=== PATIENT | female | born 1955 | race Caucasian/White ===

== ENCOUNTER 2020-03-24 15:33 | Outpatient (REF) | payer MEDICARE, MEDICAID, SELFPAY ==
[2020-03-24 16:38] LABS: MANUAL DIFF FLAG NO
[2020-03-24 16:41] LABS: Basophils Percent Auto 0.4 % (0-2); Eosinophils Absolute Auto 0.3 X10*3/uL (0.0-0.4); Hematocrit 31.8 % (37-47); Hemoglobin 10.8 g/dl (12.0-16.0); Imm Gran Abs Auto 0.09 X10*3/uL (0.00-0.03); Imm Gran Pct Auto 1.2 % (0.0-0.4); Lymphocytes Absolute Auto 2.4 X10*3/uL (1.2-4.9); Lymphocytes Percent Auto 31.5 % (20-40); Mean Corpuscular Volume 85.5 fL (80-98); Mean Platelet Volume 8.5 fL (9.4-12.3); Monocytes Absolute Auto 0.7 X10*3/uL (0.1-1.2); Monocytes Percent Auto 8.6 % (2-11); Neutrophils Absolute Auto 4.1 X10*3/uL (2.0-8.3); Neutrophils Percent Auto 54.3 % (45-73); Platelet Count 241 X10*3/uL (160-400); Red Blood Count 3.72 X10*6/uL (4.20-5.50); Red Cell Distribution Width 13.2 % (11.0-16.0); White Blood Count 7.6 X10*3/uL (4.8-10.8)
[2020-03-24 17:08] LABS: Alanine Aminotransferase 10 U/L (0-31); Albumin Level 4.1 g/dL (3.5-5.0); Alkaline Phosphatase 83 U/L (39-117); Anion Gap 11 (12-20); Aspartate Amino Transferase 10 U/L (5-31); Bilirubin Total 0.3 mg/dL (0.0-1.0); Blood Urea Nitrogen 14 mg/dL (9-16); Calcium 8.6 mg/dL (8.4-10.2); Carbon Dioxide 24 mmol/L (22-29); Chloride 100 mmol/L (96-108); Estimated Glomerular Filt Rate > 60; Glucose Random 78 mg/dL (60-115); Potassium 4.7 mmol/l (3.3-5.1); Sodium 130 mmol/L (135-145); Total Protein 6.5 g/dL (6.5-8.0)
[2020-03-24 17:33] LABS: Erythrocyte Sedimentation Rate 25 MM/HR (0-20)
== END 2020-03-24 15:34 | disposition home or self-care (01) ==
LOC: HO.LAB 15:33
PROVIDERS: Absent Provider Physician Assistant
DX: I12.9 Hypertensive chronic kidney disease with stage 1 through stage 4 chronic kidney disease, or unspecified chronic kidney disease (principal); N18.9 Chronic kidney disease, unspecified
CPT/HCPCS: 36415; 80053; 85025; 85652

== ENCOUNTER → 2020-06-05 11:28 | Outpatient (BNVA) | payer MEDICARE, MEDICAID, SELFPAY | PROVIDERS: Visit Provider Anesthesiology | DX: M17.0 Bilateral primary osteoarthritis of knee (principal); M47.816 Spondylosis without myelopathy or radiculopathy, lumbar region; M51.36 Other intervertebral disc degeneration, lumbar region; G89.4 Chronic pain syndrome | CPT/HCPCS: 99212 ==

== ENCOUNTER 2020-07-11 15:52 | Outpatient (REF) | payer MEDICARE, MEDICAID, SELFPAY ==
[2020-07-11 17:06] LABS: MANUAL DIFF FLAG NO
[2020-07-11 17:09] LABS: Basophils Percent Auto 0.2 % (0-2); Eosinophils Absolute Auto 0.2 X10*3/uL (0.0-0.4); Eosinophils Percent Auto 2.6 % (0-4); Hematocrit 36.4 % (37-47); Hemoglobin 12.2 g/dl (12.0-16.0); Imm Gran Abs Auto 0.15 X10*3/uL (0.00-0.03); Imm Gran Pct Auto 1.8 % (0.0-0.4); Lymphocytes Percent Auto 23.5 % (20-40); Mean Corpuscular HGB Conc 33.5 g/dl (31.0-35.0); Mean Corpuscular Hemoglobin 28.8 pg (27.0-33.0); Mean Corpuscular Volume 86.1 fL (80-98); Mean Platelet Volume 8.9 fL (9.4-12.3); Monocytes Absolute Auto 0.6 X10*3/uL (0.1-1.2); Neutrophils Absolute Auto 5.5 X10*3/uL (2.0-8.3); Neutrophils Percent Auto 64.9 % (45-73); Platelet Count 242 X10*3/uL (160-400); Red Blood Count 4.23 X10*6/uL (4.20-5.50); Red Cell Distribution Width 13.2 % (11.0-16.0); White Blood Count 8.4 X10*3/uL (4.8-10.8)
[2020-07-11 17:31] LABS: Alanine Aminotransferase 13 U/L (0-31); Albumin Level 4.3 g/dL (3.5-5.0); Alkaline Phosphatase 102 U/L (39-117); Aspartate Amino Transferase 15 U/L (5-31); Bilirubin Direct < 0.2 mg/dL (0.0-0.5); Bilirubin Total 0.3 mg/dL (0.0-1.0); Blood Urea Nitrogen 16 mg/dL (9-16); Estimated Glomerular Filt Rate 58
[2020-07-12 18:11] LABS: IgA 151 mg/dL (70-320); IgG 811 mg/dL (600-1540); IgM 286 mg/dL (50-300)
== END 2020-07-11 15:53 | disposition home or self-care (01) ==
LOC: HO.LAB 15:52
PROVIDERS: Visit Provider Physician Assistant
DX: G35 Multiple sclerosis (principal)
CPT/HCPCS: 36415; 80076; 82565; 82784; 84520; 85025

== ENCOUNTER 2020-08-05 10:56 | Outpatient (REF) | payer MEDICARE, MEDICAID, SELFPAY ==
[2020-08-05 11:31] LABS: Glucose Urine UA NEG (NEG); Leukocyte Esterase Urine NEG (NEG); Nitrite Urine NEG (NEG); PH 5.5 (5.0-8.0); Specific Gravity - Urine >= 1.030 (1.005-1.025); Urine Blood TRACE (NEG); Urine Ketones NEG (NEG); Urine Protein 1+ MG/DL (NEG-TRACE)
[2020-08-05 11:33] LABS: Appearance Urine HAZY; Color Urine YELLOW
[2020-08-05 11:42] LABS: Bacteria Urine 1+ /LPF; Squamous Epithelial Cell Urine 1+ /LPF; WBC Urine 0-2 /HPF (0-4)
[2020-08-05 11:55] LABS: Alanine Aminotransferase 22 U/L (0-31); Albumin Level 4.3 g/dL (3.5-5.0); Alkaline Phosphatase 103 U/L (39-117); Anion Gap 15 (12-20); Aspartate Amino Transferase 26 U/L (5-31); Bilirubin Total 0.4 mg/dL (0.0-1.0); Blood Urea Nitrogen 18 mg/dL (9-16); Calcium 8.7 mg/dL (8.4-10.2); Carbon Dioxide 19 mmol/L (22-29); Chloride 108 mmol/L (96-108); Estimated Glomerular Filt Rate 56; Glucose Random 119 mg/dL (60-115); Potassium 4.3 mmol/L (3.3-5.1); Sodium 138 mmol/L (135-145)
== END 2020-08-05 10:57 | disposition home or self-care (01) ==
LOC: HO.LAB 10:56
PROVIDERS: Visit Provider Physician Assistant
DX: G35 Multiple sclerosis (principal); Z86.59 Personal history of other mental and behavioral disorders
CPT/HCPCS: 36415; 80053; 81001

== ENCOUNTER → 2020-08-17 14:20 | Outpatient (BNVA) | payer MEDICARE, MEDICAID, SELFPAY | PROVIDERS: PCP Internal Medicine; Visit Provider Internal Medicine | DX: Z01.810 Encounter for preprocedural cardiovascular examination (principal); I47.1 Supraventricular tachycardia; I10 Essential (primary) hypertension | CPT/HCPCS: 93005; 99202 ==

== ENCOUNTER → 2020-08-31 13:57 | Outpatient (REF) | payer MEDICARE, MEDICAID, SELFPAY ==
--- NOTE | 2020-08-31 14:01 | CA_ITS ---
Transthoracic Echocardiogram Patient (Last, First, Middle): Sarah Dash, Gender: Female Date of : 1955 Age: 64 Procedure Date: 08/31/2020 Procedure Type: Transthoracic Echocardiogram Location: OP Height: 165.1 cm Weight: 88.45 kg BSA: 1.96 m2 Heart Rate: bpm BP: 148 / 90 mmHg [employer] Supervisor: TOM Verduzco MD: Isrrael Álvarez MD [employer]: Joel Soriano MD Symptoms: I25.10 - Atherosclerotic heart disease of [place] coronary artery without angina pectoris Study Quality: Technically Difficult/contrast ECG Rhythm: Sinus Conclusions: - 1. Normal LV systolic function with impaired relaxation filling pattern 2. Cardiac valves not well visualized but Doppler within normal limits 3. Normal RV systolic pressure 4. No pericardial effusion Findings Left Ventricle Normal left ventricular size and systolic function. There is mildly increased left ventricular wall thickness. The visually estimated ejection fraction is between 60-65%. Spectral Doppler is indicative of an impaired relaxation filling pattern. E/E prime ratio is between 8 and 15 consistent with indeterminate filling pressures. Right Ventricle The right ventricle was not well visualized. Atria Both atria are normal in size. Interatrial shunt cannot be excluded. Aortic Valve The aortic valve was not well visualized. There is no aortic valve stenosis. There is no aortic valve regurgitation. Mitral Valve The mitral valve was not well visualized. There is trace mitral valve regurgitation. There is no mitral valve stenosis. Pulmonic Valve The pulmonic valve was not well visualized. Tricuspid Valve The tricuspid valve was not well visualized. There is trace tricuspid valve regurgitation. The right ventricular systolic pressure is normal. The right ventricular systolic pressure is 11 mmHg. There is no evidence of pulmonary hypertension. Great Vessels All visible segments of the aorta are normal in size. The pulmonary artery was not well visualized. Venous The inferior vena cava is normal in size and collapses greater than 50% with inspiration. Pericardium/Pleural There is no evidence of pericardial effusion. Prior Study Comparison No significant change compared to prior study dated: 12/31/2017. Measurements 2D Linear Measurements IVSd: 1.21 0.6-0.9/0.6-1.0 cm LVIDd: 3.71 3.9-5.3/4.2-5.9 cm LVIDd Index: 1.89 2.4-3.2/2.2-3.1 cm/m2 LVIDs: 2.48 2.0-3.6 cm LVPWd: 1.20 0.7-1.1 cm Ao Root: 3.00 2.1-3.5 cm LA Diam: 3.30 2.7-3.8/3.0-4.0 cm LAIDs Index: 1.68 1.5-2.3 cm/m2 LV Mass: 185.28 67-162/88-224 g LV Mass Index: 94.53 43-95/49-115 g/m2 LVOT Diam: 1.90 3.0+(-)1.3 cm Mitral Valve MV Pk E: 0.82 MV PK A: 0.79 MV Decel Time: 275.00 E/A: 1.00 E'Lateral: 9.57 E'Medial: 7.35 E/E' Med: 11.20 E/E' Lat: 8.60 PHT: 80.00 MVA PHT: 2.75 Decel Butler: 2.98 Aortic Valve AoV Pk Sam: 1.46 AoV Mn Sam: 0.99 AoV VTI: 0.30 AoV Pk Grad: 9.00 Aov Mn Grad: 4.00 PERCY Cont.VTI: 2.11 LVOT LVOT Pk Sam: 0.95 LVOT Mn Sam: 0.68 LVOT VTI: 0.22 LVOT Pk Grad: 4.00 LVOT Mn Grad: 2.00 LVOT Diam: 1.90 LVOT Area: 2.84 Diastolic Function MV Pk E: 0.82 MV Pk A: 0.79 E/A: 1.00 E'Medial: 7.35 E/E' Med: 11.20 E' Laterial: 9.57 E/E' Lat: 8.60 Tricuspid Valve TR Pk Sam: 1.45 TR Pk Grad: 8.00 RA Press: 3.00 RVSP: 11.00 Great Vessels Aorta Ao Root-2D: 3.00 2.0-3.7 cm Ao Asc: 3.10 2.1-3.4 cm Ao Arch: 3.10 Updated in Other Vendor System with Status of Final Joel Soriano MD electronically signed on 09/01/2020 12:47:30 PM with status of Final
--- NOTE | 2020-09-05 09:02 | ECG_ITS ---
Hook-up date: 2020-09-05 16:13:00 Duration: 47:59:00 Test Indications: SVT Medications: [id number] QRS complexes 588 Ventricular ectopics which represent <1 % of total QRS comp. 22 Supraventricular ectopics which represent <1 % of total QRS comp. * Paced QRS complexs which represent % of total QRS comp. VENTRICULAR ECTOPY 586 Isolated 0 Bigeminal Cycles 1 Couplets 0 Runs 0 Beats in Runs * Beats LONGEST at * BPM at :: -- * Beats FASTEST at * BPM at :: -- SUPRAVENTRICULAR ECTOPY 9 Isolated 2 Couplets 1 Runs 9 Beats in Runs 9 Beats LONGEST at 85 BPM at 03:12:44 2020-09-07 9 Beats FASTEST at 85 BPM at 03:12:44 2020-09-07 HEART RATES 64 MIN at 00:56:34 2020-09-06 71 AVG 120 MAX at 15:13:12 2020-09-07 LONGEST RR 1.1120 secs at 03:12:50 2020-09-07 S-T LEVELS Channel 1 - 128 mm at 16:13:00 2020-09-05 - 128 mm at 16:13:00 2020-09-05 Channel 2 - 128 mm at 16:13:00 2020-09-05 - 128 mm at 16:13:00 2020-09-05 Channel 3 - 128 mm at 03:53:21 -- - 128 mm at 03:53:21 Underlying rhythm is sinus; Average ventricular rate 71/wilfredo; range 64-120/min; Occasional PVCs; isolated; Symptoms of chest tightness, shortness of breath, lightheadedness, head pounding in patient diary associated with sinus rhythm. Referred By: Gino Jackson Overread By: GINO JACKSON
== END ==
LOC: HO.CARD 13:57
PROVIDERS: Visit Provider Internal Medicine
DX: I25.10 Atherosclerotic heart disease of native coronary artery without angina pectoris (principal); I47.1 Supraventricular tachycardia
CPT/HCPCS: 93226; 93306; Q9957

== ENCOUNTER → 2020-09-05 16:06 | Outpatient (BNVA) | payer MEDICARE, MEDICAID, SELFPAY | PROVIDERS: PCP Internal Medicine; Visit Provider Internal Medicine ==

== ENCOUNTER → 2020-09-19 15:46 | Outpatient (BNVA) | payer MEDICARE, MEDICAID, SELFPAY | PROVIDERS: PCP Internal Medicine; Visit Provider Internal Medicine | DX: Z01.810 Encounter for preprocedural cardiovascular examination (principal); I47.1 Supraventricular tachycardia; I10 Essential (primary) hypertension; R07.2 Precordial pain | CPT/HCPCS: 99212 ==

== ENCOUNTER → 2020-09-22 08:07 | Outpatient (REF) | payer MEDICARE, MEDICAID, SELFPAY ==
--- NOTE | ~2020-09-22 | NM_ITS ---
Lexiscan Myocardial perfusion study Indication: Chest tightness, assess for coronary disease and ischemia Technique: The patient was brought in for a Lexiscan perfusion study on 09/22/2020 and was injected 0.4 mg of Lexiscan intravenously. Within a minute of this injection 30 mCi of sestamibi was given intravenously. Images were obtained using the SPECT gamma camera interlaced with the gating device. Images were obtained in supine position. Resting perfusion study was performed on 09/25/2020. Patient was administered 30 mCi of sestamibi intravenously at rest. Images were then obtained in supine position. Total DLP 169mGy-cm. Images were processed with the software and compared side to side in short axis, horizontal long axis and vertical long axis views. Findings: Raw acquisition was reviewed. Probable motion artifact during resting. The stress perfusion study showed diminished tracer uptake along the basal part of inferolateral wall. With CT attenuation correction, there is improved uptake suggestive of diaphragmatic attenuation artifact. The gated study shows normal LV systolic function with calculated LVEF of > 70%. LV cavity is normal in size. The gated study shows normal wall thickening and contraction of segments. Resting study shows diminished tracer uptake along the lateral wall in the midportion that is seen in both uncorrected as well as corrected acquisitions and possibly artifactual. Gating at rest reveals normal wall motion with ejection fraction at 70%. The findings are consistent with no definite reversible defects. Lateral defect that is worse in resting is likely artifactual. NM/NM jose l perf SPECT rest & str Impression: 1. Myocardial perfusion imaging study shows no definitive ischemia or infarction noted. Lateral perfusion defect seems artifactual and more prominent during rest. 2. Gated LVEF is > 70% during stress; 70% during rest. 3. Transient ischemic dilatation not present. EKG component of the test reported separately.
--- NOTE | 2020-09-22 08:12 | CA_ITS ---
Acquisition Time: 2020-09-22 08:20:40 Total Exercise Time: 00:02:00 Test Indications: Lightheadedness Medications: VALSARTAN/HCTZ CARVEDILOL SERTRALINE OXYCODONE OMEPRAZOLE LORAZAPAM Protocol: LEXISCAN Max HR: 105 BPM 68% of Pred: 153 BPM Max BP: 130/072 mmHG Max Work Load: 1.0 METS Pharmacological stress test using Lexiscan while sitting. Pt tolerated well, denies any anginal sx. SX of H/A reversed with Aminophyline 75 mg IV. EKG without arrhythmias, non-diagnostic for ischemia. Nuclear images to follow. Normotensive response to test. Test reviewed with Dr. Beyer. Referred By: Isrreal Álvarez Overread By: Dinah Waddell NP
== END ==
LOC: HO.CARD 08:07
PROVIDERS: Visit Provider Internal Medicine
DX: R07.2 Precordial pain (principal)
CPT/HCPCS: 78452; 93017; A9500; J0280; J2785

== ENCOUNTER → 2020-09-29 09:57 | Outpatient (BNVA) | payer MEDICARE, MEDICAID, SELFPAY | PROVIDERS: PCP Internal Medicine; Visit Provider Nurse Practitioner Family | DX: Z01.810 Encounter for preprocedural cardiovascular examination (principal); R07.2 Precordial pain; I10 Essential (primary) hypertension; I47.1 Supraventricular tachycardia; G35 Multiple sclerosis; Z79.899 Other long term (current) drug therapy | CPT/HCPCS: Q3014 ==

== ENCOUNTER 2020-10-13 12:31 | Day surgery (SDC) | payer MEDICARE, MEDICAID, SELFPAY ==
[2020-08-09 11:07] VITALS: BMI 33.3
--- NOTE | 2020-08-15 13:21 | P.CONAN_ITS ---
HPI - Anesthesia Eval Consult details Narrative: 64yo F for Right Genicular Nerve Block Diagnostic Pt cx'd 08/18/20 d/t atach vs svt (seen by cardiology 08/17/20). Will be rescheduled after follow up with cardiology. [facility] Active Problems Active Problems: All Active Problems (Updated 08/11/20 @ 09:51 by Drew Marc MD) Paroxysmal SVT (supraventricular tachycardia) (Acute) Multiple sclerosis (Acute) Depression (Acute) Pain syndrome, chronic (Acute) Disc degeneration, lumbar (Acute) Spondylosis of lumbar region without myelopathy or radiculopathy (Acute) Osteoarthritis of knees, bilateral (Acute) Past Medical History Medical History (Updated 08/17/20 @ 14:38 by Isrrael Álvarez MD) Anxiety Arthritis Depression Disc degeneration, lumbar GERD (gastroesophageal reflux disease) History of confusion History of dysphagia History of kidney problems Hypertension Memory difficulties Multiple sclerosis Osteoarthritis of knees, bilateral Pain syndrome, chronic Paroxysmal SVT (supraventricular tachycardia) Spondylosis of lumbar region without myelopathy or radiculopathy SVT (supraventricular tachycardia) Urgency of micturition Family History Family History Mother No problems noted. Father No problems noted. Surgical History Surgical History Deficient knowledge of leg surgery History of appendectomy History of left knee surgery History of myomectomy History of rotator cuff surgery History of surgery on left wrist Hx of hysterectomy Social History Social History Alcohol intake: current Alcohol intake frequency: holidays/special occasions only Smoking Status: Never smoker Second Hand Smoke Exposure: No Meds Allergies Allergy/AdvReac Type Severity Reaction Status Date / Time cobalt [COBALT] Allergy Unknown RASH Verified 08/17/20 14:37 hydrocodone [Vicodin] Allergy Unknown Nausea and Verified 08/17/20 14:37 Vomiting nickel [NICKEL] Allergy Unknown RASH Verified 08/17/20 14:37 ondansetron [Zofran] Allergy Unknown Hives Verified 08/17/20 14:37 prochlorperazine [Compazine] Allergy Unknown Dystonic Verified 08/17/20 14:37 Reaction morphine AdvReac Nausea and Verified 08/17/20 14:37 Vomiting Home Medications Medication Instructions Recorded Confirmed Last Taken Type cyclobenzaprine 10 mg tablet 10 mg PO TID 06/05/20 08/17/20 Unknown History ergocalciferol (vitamin D2) 1,250 1,250 mcg PO QWEEK 06/05/20 08/17/20 Unknown History mcg (50,000 unit) capsule ibuprofen 200 mg tablet 400 mg PO TID PRN 06/05/20 08/17/20 Unknown History lorazepam 0.5 mg tablet 0.5 mg PO 06/05/20 08/17/20 Unknown History omeprazole 20 mg capsule,delayed 20 mg PO BID 06/05/20 08/17/20 Unknown History release oxcarbazepine 300 mg tablet 300 mg PO BID 06/05/20 08/17/20 Unknown History oxybutynin chloride 10 mg 10 mg PO DAILY 06/05/20 08/17/20 Unknown History tablet,extended release 24 hr sertraline 50 mg tablet 50 mg PO BID 06/05/20 08/17/20 Unknown History valsartan 160 1 tab PO DAILY 06/05/20 08/17/20 Unknown History mg-hydrochlorothiazide 25 mg tablet zolpidem 10 mg tablet 10 mg PO BEDTIME PRN 06/05/20 08/17/20 Unknown History quetiapine 50 mg tablet 50 mg PO BEDTIME 08/08/20 08/17/20 Unknown History carvedilol 12.5 mg tablet 25 mg PO QAM tab 08/17/20 08/17/20 Unknown History Exam Exam Date and Time: August 15, 2020 1321 Height,Weight and Vital Signs: Height 5 ft 4 in Weight 87.997 kg Narrative Narrative: EKG 06/2019 NSR 1st degree AV block No abn Q wave Echo 2018 LVEF 65-70% Holter 2018 Basic rhythm NSR Freq SB, lowest HR of 45bmp No long pauses Rare ectopies Pt reported symptoms correlated with baseline rhythm Assessment and Plan Assessment Anesthesia Assessment: Chart Reviewed
[2020-10-06 12:33] VITALS: BMI 39.3
--- NOTE | ~2020-10-13 | FL_ITS ---
EXAMINATION: XR FLUOROSCOPY WITH IMAGES CLINICAL INFORMATION: Geniculate nerve block COMPARISON: None. TECHNIQUE: Fluoroscopy performed by Dr. Favian Sullivan. Fluoroscopy time: 0.1 minutes DAP: 0.4 mGycm2 Images: 2 FINDINGS: AP and lateral fluoroscopic images of the right knee demonstrate needle placement for geniculate nerve block. There is arthritis at the medial femoral tibial and patellofemoral joints. FL/FL guidance in OR IMPRESSION: Fluoroscopic guidance for right knee geniculate nerve block.
--- NOTE | 2020-10-13 13:18 | PC.NURSE ---
order for both knees for today but dr Sullivan only doing the right side.
[2020-10-13 13:29] VITALS: BP 125/80; PULSE 67; RESP 18; TEMP 36.5; O2SAT 95
[2020-10-13] MEDS: Lactated Ringers 1,000 ML 50 ML IV (13:32)
--- NOTE | 2020-10-13 13:38 | MHC.SHP ---
Pre-Procedural Eval Section A The patient is an INPATIENT: No Changes since office visit: Yes Patient answered all questions The History & Physical has been completed within 30 days and I have reviewed it.: No Section B Chief Complaint: osteoarthritis of the knee Details of Present Illness: Knee osteoarthritis Relevant Family History (Specify if Yes): No Relevant Social History: None Present Medications: see Short Stay Collaborative assessment Medical History: Significant History History of Previous Operations: No relevant previous surgery Allergies: Allergies Allergy/AdvReac Type Severity Reaction Status Date / Time prochlorperazine [Compazine] Allergy Severe Dystonic Verified 10/13/20 13:22 Reaction cobalt [COBALT] Allergy Intermediate RASH Verified 10/13/20 13:22 hydrocodone [Vicodin] Allergy Intermediate Nausea and Verified 10/13/20 13:22 Vomiting nickel [NICKEL] Allergy Intermediate RASH Verified 10/13/20 13:22 ondansetron [Zofran] Allergy Unknown Hives Verified 10/13/20 13:22 morphine AdvReac Nausea and Verified 10/13/20 13:22 Vomiting Review of Systems Sugical H&P ROS: Negative: Constitution, Cardiovascular, Respiratory, Neurological, Psychiatric, Hem-Onc, Allergic/Immunologic, Gastrointestinal, Genitourinary, Musculoskeletal, Integumentary, Endocrine and Eyes/Ears/Nose/Throat Exam Surgical H&P Exam: Normal: HEENT, Normal: Heart, Normal: Lungs, Normal: Extremities, Normal: Abdomen, Normal: Skin and Normal: Neurological Plan Diagnosis/Plan: Unchanged I have reviewed the history and physical and performed a pertinent physical examination on my patient. No changes have occurred unless specified.
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
--- NOTE | 2020-10-13 14:19 | PM.OP ---
Brief Operative Note Date of Service: 10/13/20 Pre-op diagnosis: Right knee osteoarthritis Post-op diagnosis: same Implants: Diagnostic genicular nerve block right Surgeon: Favian Sullivan MD Anesthesia: MAC Estimated blood loss (mL): 1 Pathology: none sent Condition: stable Disposition: PACU
--- NOTE | 2020-10-13 14:20 | W.PM.OPN ---
Operative Note Operative Note Date of Service: 10/13/20
[2020-10-13 14:21] VITALS: BP 94/58; PULSE 64; RESP 16; TEMP 36.1; O2SAT 97
[2020-10-13 14:35] VITALS: BP 112/70; PULSE 68; RESP 16; TEMP 36.1; O2SAT 99
--- NOTE | 2020-10-17 07:02 | P.OP_ITS ---
Operative Note Operative Note Date of Service: 10/13/20 Narrative: Patient came to the operating room after informed consent was obtained. She was positioned supine on the operating table [employer] [employer] monitors were applied , patient was sedated. Time-out procedure was performed delineating correct site and side of the injections, patient's name and date of , allergies, need for antibiotics, risk of fire. Patient's righ knees as well as anterior surface of lower thigh as well as anterior surface of upper obrien were prepped with ChloraPrep and draped with sterile towels. Sterilely draped C-arm was brought over the operating field and sq picture of the patient's knees was obtained on the screen The point of interest were delineated as connection of metaphysis and diaphysis medial and lateral of the femoral bone, as well as connections of the diaphysis and metaphysis bilaterally on the medial border of the tibial bone. The point of interest projection to the skin were injected with small amount of Lidocaine and after that 22 g. 3&1/2 spinal needles were inserted through the skin . The needles were driven to were the point of interest on anterior posterior and lateral views. When on lateral views the needles were positioned with the tips in the projection of mid shaft of the bones the 1.5 to 2 cc of Marcaine was injected into each position. Upon completion of the injections needles were removed sterile Band-Aids were applied. Patient tolerated procedure well he was awakened and transferred to PACU for recovery he recovered uneventfully and went home without immediate complications.
== END 2020-10-13 15:33 | disposition home or self-care (01) ==
PROVIDERS: Visit Provider Anesthesiology
PROC: (CPT 64454; principal; 2020-10-13 13:20)
DX: M17.11 Unilateral primary osteoarthritis, right knee (principal); G35 Multiple sclerosis; G89.4 Chronic pain syndrome; I10 Essential (primary) hypertension; Z79.899 Other long term (current) drug therapy
CPT/HCPCS: 64454; J3300

== ENCOUNTER → 2020-10-19 11:55 | Outpatient (BNVA) | payer MEDICARE, MEDICAID, SELFPAY | PROVIDERS: Visit Provider Anesthesiology | DX: M17.0 Bilateral primary osteoarthritis of knee (principal); M47.816 Spondylosis without myelopathy or radiculopathy, lumbar region; M51.36 Other intervertebral disc degeneration, lumbar region; G89.4 Chronic pain syndrome | CPT/HCPCS: Q3014 ==

== ENCOUNTER 2020-10-27 07:48 | Day surgery (SDC) | payer MEDICARE, MEDICAID, SELFPAY ==
--- NOTE | 2020-10-25 13:06 | P.CONAN_ITS ---
Documented by User: Swetha Rodriguez 10/25/20 13:09 HPI - Anesthesia Eval Consult details Narrative: 65yo F for Left Genicular Nerve Block Diagnostic Cardiac cleared - SVT controlled with rx adjustments s/p Right side 10/13/20 with MAC PMFSH Active Problems Active Problems: All Active Problems (Updated 09/19/20 @ 16:16 by Isrrael Álvarez MD) Precordial chest pain (Acute) Essential hypertension (Acute) Preoperative cardiovascular examination (Acute) SVT (supraventricular tachycardia) (Acute) Paroxysmal SVT (supraventricular tachycardia) (Acute) Multiple sclerosis (Acute) Depression (Acute) Pain syndrome, chronic (Acute) Disc degeneration, lumbar (Acute) Spondylosis of lumbar region without myelopathy or radiculopathy (Acute) Osteoarthritis of knees, bilateral (Acute) Past Medical History Medical History Anxiety Arthritis Depression Disc degeneration, lumbar Essential hypertension GERD (gastroesophageal reflux disease) History of confusion History of dysphagia History of kidney problems Hypertension Memory difficulties Multiple sclerosis Osteoarthritis of knees, bilateral Pain syndrome, chronic Paroxysmal SVT (supraventricular tachycardia) Spondylosis of lumbar region without myelopathy or radiculopathy SVT (supraventricular tachycardia) Urgency of micturition Family History Family History Mother Diabetes Kidney failure Father AAA (abdominal aortic aneurysm, ruptured) Surgical History Surgical History Deficient knowledge of leg surgery History of appendectomy History of left knee surgery History of myomectomy History of rotator cuff surgery History of surgery on left wrist Hx of hysterectomy Social History Social History Alcohol intake: current Alcohol intake frequency: holidays/special occasions only Smoking Status: Never smoker Second Hand Smoke Exposure: No Use of substances other than those prescribed or required for medical reasons: No Are you DNR?: No Advance Directives: No Advance Directives Information Provided: Yes Meds Allergies Allergy/AdvReac Type Severity Reaction Status Date / Time prochlorperazine [Compazine] Allergy Severe Dystonic Verified 10/27/20 07:57 Reaction cobalt [COBALT] Allergy Intermediate RASH Verified 10/27/20 07:57 hydrocodone [Vicodin] Allergy Intermediate Nausea and Verified 10/27/20 07:57 Vomiting nickel [NICKEL] Allergy Intermediate RASH Verified 10/27/20 07:57 ondansetron [Zofran] Allergy Unknown Hives Verified 10/27/20 07:57 morphine AdvReac Nausea and Verified 10/27/20 07:57 Vomiting Home Medications Medication Instructions Recorded Confirmed Last Taken Type ergocalciferol (vitamin D2) 1,250 1,250 mcg PO QWEEK 06/05/20 10/01/20 Unknown History mcg (50,000 unit) capsule ibuprofen 200 mg tablet 400 mg PO TID PRN 06/05/20 10/01/20 Unknown History lorazepam 0.5 mg tablet 0.5 mg PO 06/05/20 10/01/20 10/27/20 05:30 History omeprazole 20 mg capsule,delayed 20 mg PO BID 06/05/20 10/01/20 10/27/20 05:30 History release oxcarbazepine 300 mg tablet 300 mg PO BID 06/05/20 10/01/20 10/27/20 05:30 History oxybutynin chloride 10 mg 10 mg PO DAILY 06/05/20 10/01/20 10/27/20 05:30 History tablet,extended release 24 hr sertraline 50 mg tablet 50 mg PO BID 06/05/20 10/01/20 10/13/20 09:00 History zolpidem 10 mg tablet 10 mg PO BEDTIME PRN 06/05/20 10/01/20 Unknown History quetiapine 50 mg tablet 50 mg PO BEDTIME 08/08/20 10/01/20 Unknown History Exam Exam Date and Time: October 25, 2020 1306 Narrative Narrative: ECHO 08/2020 Conclusions: - 1. Normal LV systolic function with impaired relaxation filling pattern 2. Cardiac valves not well visualized but Doppler within normal limits 3. Normal RV systolic pressure 4. No pericardial effusion 48hour Holter 08/2020 Underlying rhythm is sinus; Average ventricular rate 71/wilfredo; range 64-120/min; Occasional PVCs; isolated; Symptoms of chest tightness, shortness of breath, lightheadedness, head pounding in patient diary associated with sinus rhythm. NM jose l perf SPECT rest & str 08/2020 Impression: 1. Myocardial perfusion imaging study shows no definitive ischemia or infarction noted. Lateral perfusion defect seems artifactual and more prominent during rest. 2. Gated LVEF is > 70% during stress; 70% during rest. 3. Transient ischemic dilatation not present. Assessment and Plan Assessment Anesthesia Assessment: Chart Reviewed Documented by User: Sonaj Lyn 10/27/20 09:03 [facility] Past Medical History Medical History Anxiety Arthritis Depression Disc degeneration, lumbar Essential hypertension GERD (gastroesophageal reflux disease) History of confusion History of dysphagia History of kidney problems Hypertension Memory difficulties Multiple sclerosis Osteoarthritis of knees, bilateral Pain syndrome, chronic Paroxysmal SVT (supraventricular tachycardia) Spondylosis of lumbar region without myelopathy or radiculopathy SVT (supraventricular tachycardia) Urgency of micturition Family History Family History Mother Diabetes Kidney failure Father AAA (abdominal aortic aneurysm, ruptured) Surgical History Surgical History Deficient knowledge of leg surgery History of appendectomy History of left knee surgery History of myomectomy History of rotator cuff surgery History of surgery on left wrist Hx of hysterectomy Social History Social History Alcohol intake: current Alcohol intake frequency: holidays/special occasions only Smoking Status: Never smoker Second Hand Smoke Exposure: No Use of substances other than those prescribed or required for medical reasons: No Are you DNR?: No Advance Directives: No Advance Directives Information Provided: Yes Meds Allergies Allergy/AdvReac Type Severity Reaction Status Date / Time prochlorperazine [Compazine] Allergy Severe Dystonic Verified 10/27/20 07:57 Reaction cobalt [COBALT] Allergy Intermediate RASH Verified 10/27/20 07:57 hydrocodone [Vicodin] Allergy Intermediate Nausea and Verified 10/27/20 07:57 Vomiting nickel [NICKEL] Allergy Intermediate RASH Verified 10/27/20 07:57 ondansetron [Zofran] Allergy Unknown Hives Verified 10/27/20 07:57 morphine AdvReac Nausea and Verified 10/27/20 07:57 Vomiting Home Medications Medication Instructions Recorded Confirmed Last Taken Type ergocalciferol (vitamin D2) 1,250 1,250 mcg PO QWEEK 06/05/20 10/01/20 Unknown History mcg (50,000 unit) capsule ibuprofen 200 mg tablet 400 mg PO TID PRN 06/05/20 10/01/20 Unknown History lorazepam 0.5 mg tablet 0.5 mg PO 06/05/20 10/01/20 10/27/20 05:30 History omeprazole 20 mg capsule,delayed 20 mg PO BID 06/05/20 10/01/20 10/27/20 05:30 History release oxcarbazepine 300 mg tablet 300 mg PO BID 06/05/20 10/01/20 10/27/20 05:30 History oxybutynin chloride 10 mg 10 mg PO DAILY 06/05/20 10/01/20 10/27/20 05:30 History tablet,extended release 24 hr sertraline 50 mg tablet 50 mg PO BID 06/05/20 10/01/20 10/13/20 09:00 History zolpidem 10 mg tablet 10 mg PO BEDTIME PRN 06/05/20 10/01/20 Unknown History quetiapine 50 mg tablet 50 mg PO BEDTIME 08/08/20 10/01/20 Unknown History Exam Airway Mallampati Class: III TM Dist: >3cm Neck ROM: Limited Heart: RRR Lungs: CTA Assessment and Plan Assessment Anesthesia Assessment: Anesthesia Plan Discussed and Chart Reviewed Final Anesthetic Review NPO: Yes ASA Class: III Final Preanesthetic Review: Meds/Allgs Chart Reviewed, Consent Obtained/Reviewed and Anes Risks/Benef Reviewed Patient Risk: Intermediate Procedure Risk: Low Anesthetic Plan Anesthetic Plan: MAC: Disposition: Standard PACU
--- NOTE | ~2020-10-27 | FL_ITS ---
EXAMINATION: XR FLUOROSCOPY WITH IMAGES CLINICAL INFORMATION: Genetic: No block COMPARISON: None. TECHNIQUE: Fluoroscopy performed by Dr. Sullivan Fluoroscopy time: 0.2 minutes DAP: 1.01 mGycm2 Images: 2 FINDINGS: There is severe loss of medial and moderate loss of lateral compartment joint space with periarticular spurring. There are needles position along the medial lateral aspect of distal femur and medial aspect of proximal tibia for genicular nerve block. FL/FL guidance in OR IMPRESSION: Degenerative changes of the knees as described above. [place] positioned above and below the knee joint for genicular nerve block.
[2020-10-27 08:30] VITALS: BP 130/70; PULSE 68; RESP 22; TEMP 36.7; O2SAT 95; BMI 33.5
[2020-10-27] MEDS: Lactated Ringers 1,000 ML 100 ML IVCONT (08:30)
--- NOTE | 2020-10-27 08:55 | MHC.SHP ---
Pre-Procedural Eval Section A The patient is an INPATIENT: No Changes since office visit: Yes Patient answered all questions The History & Physical has been completed within 30 days and I have reviewed it.: No Section B Chief Complaint: osteoarthritis of knees,bilateral Details of Present Illness: as above Relevant Family History (Specify if Yes): No Relevant Social History: Other (specify) Present Medications: see Short Stay Collaborative assessment Medical History: Significant History History of Previous Operations: No relevant previous surgery Allergies: Allergies Allergy/AdvReac Type Severity Reaction Status Date / Time prochlorperazine [Compazine] Allergy Severe Dystonic Verified 10/27/20 07:57 Reaction cobalt [COBALT] Allergy Intermediate RASH Verified 10/27/20 07:57 hydrocodone [Vicodin] Allergy Intermediate Nausea and Verified 10/27/20 07:57 Vomiting nickel [NICKEL] Allergy Intermediate RASH Verified 10/27/20 07:57 ondansetron [Zofran] Allergy Unknown Hives Verified 10/27/20 07:57 morphine AdvReac Nausea and Verified 10/27/20 07:57 Vomiting Review of Systems Sugical H&P ROS: Negative: Cardiovascular, Respiratory, Neurological, Psychiatric, Hem-Onc, Allergic/Immunologic, Gastrointestinal, Genitourinary, Integumentary, Endocrine and Eyes/Ears/Nose/Throat and Yes, Specify: Constitution (morbid obesuty) and Musculoskeletal (osteoarthritis) Exam Surgical H&P Exam: Normal: HEENT, Normal: Heart, Normal: Lungs, Normal: Abdomen, Normal: Skin and Normal: Neurological and Significant Findings: Extremities (BL knees osteoarthritis) Plan Diagnosis/Plan: Unchanged I have reviewed the history and physical and performed a pertinent physical examination on my patient. No changes have occurred unless specified.
[2020-10-27 09:38] VITALS: BP 87/42; PULSE 78; RESP 16; TEMP 36.9; O2SAT 94
[2020-10-27 09:43] VITALS: BP 88/47
[2020-10-27 09:48] VITALS: BP 88/53
[2020-10-27 09:53] VITALS: BP 103/54; PULSE 73; RESP 18; O2SAT 97
--- NOTE | 2020-10-27 09:53 | PM.OP ---
Brief Operative Note Date of Service: 10/27/20 Pre-op diagnosis: osteoarthritis Post-op diagnosis: same Procedure: genicular nerve block left knee diagnostic Implants: none Surgeon: Favian Sullivan MD Was an Transfer Station Operator used for this Procedure?: No Estimated blood loss (mL): 0 Condition: stable Disposition: PACU
[2020-10-27 10:08] VITALS: BP 103/53; PULSE 64; RESP 18; TEMP 36.9; O2SAT 98
--- NOTE | 2020-10-27 13:37 | P.OP_ITS ---
Operative Note Operative Note Date of Service: 10/27/20 Narrative: Ms Dash is very pleasant 67 years old lady who came today into the operating room for left genicular nerve block for the treatment of the left knee osteoarthritis. After obtaining informed consent patient was brought to the operating room,she was positioned prone on operating table, [place] [employer] monitors were applied and patient was deeply sedated. Time-out was performed delineating correct site, side, the nature of the procedure, patient's allergy, preoperative antibiotic. All operating room staff was participating in OR time-out procedure. Patient's left liked was prompted on the gel bin and prepped with ChloraPrep and draped with sterile utility towels. C-arm brought over the operating field and sq picture of the patient's left knee was demonstrated on the screen. Of the points of interest were delineated as connection of metaphysis and diaphysis bilaterally on the femoral bone as well as connection of metaphysis and diaphysis on the medial margin of the tibial bone. The point of interest were injected with small amount of lidocaine 2%. After that 22 gauge 3-1/2 inch spinal needles were driven to were the point of interest under tunnel vision fashion on AP and lateral projection. When needles reached mid shaft of the bone the lateral projection small amount of bupivacaine 0.5% no more than 1.5 cc was injected into each needle. Upon completion of the injections needles were removed sterile Band-Aids were applied. The patient tolerated procedure well, she was awaken and transferred to PACU. She recovered uneventfully.
== END 2020-10-27 10:46 | disposition home or self-care (01) ==
PROVIDERS: Visit Provider Anesthesiology
PROC: (CPT 64454; principal; 2020-10-27 09:00)
DX: M17.12 Unilateral primary osteoarthritis, left knee (principal); G89.4 Chronic pain syndrome; G35 Multiple sclerosis; I10 Essential (primary) hypertension; M47.816 Spondylosis without myelopathy or radiculopathy, lumbar region; I47.1 Supraventricular tachycardia; Z79.899 Other long term (current) drug therapy; Z88.8 Allergy status to other drugs, medicaments and biological substances
CPT/HCPCS: 64454; J2250

== ENCOUNTER → 2020-11-02 15:59 | Outpatient (BNVA) | payer MEDICARE, MEDICAID, SELFPAY | PROVIDERS: Visit Provider Anesthesiology | DX: M17.0 Bilateral primary osteoarthritis of knee (principal); M47.816 Spondylosis without myelopathy or radiculopathy, lumbar region; M51.36 Other intervertebral disc degeneration, lumbar region; G89.4 Chronic pain syndrome | CPT/HCPCS: Q3014 ==

== ENCOUNTER 2020-12-01 15:41 | Outpatient (REF) | payer MEDICARE, MEDICAID, SELFPAY ==
[2020-12-01 17:49] LABS: MANUAL DIFF FLAG NO
[2020-12-01 18:07] LABS: Basophils Absolute Auto 0.1 X10*3/uL (0.0-0.2); Basophils Percent Auto 0.5 % (0-2); Eosinophils Absolute Auto 0.3 X10*3/uL (0.0-0.4); Eosinophils Percent Auto 3.1 % (0-4); Hematocrit 37.3 % (37-47); Hemoglobin 12.4 g/dl (12.0-16.0); Imm Gran Abs Auto 0.09 X10*3/uL (0.00-0.03); Lymphocytes Absolute Auto 2.8 X10*3/uL (1.2-4.9); Mean Corpuscular HGB Conc 33.2 g/dl (31.0-35.0); Mean Corpuscular Hemoglobin 28.9 pg (27.0-33.0); Mean Corpuscular Volume 86.9 fL (80-98); Mean Platelet Volume 9.6 fL (9.4-12.3); Monocytes Absolute Auto 0.6 X10*3/uL (0.1-1.2); Monocytes Percent Auto 6.5 % (2-11); Neutrophils Absolute Auto 5.3 X10*3/uL (2.0-8.3); Neutrophils Percent Auto 57.9 % (45-73); Platelet Count 237 X10*3/uL (160-400); Red Blood Count 4.29 X10*6/uL (4.20-5.50); Red Cell Distribution Width 12.9 % (11.0-16.0); White Blood Count 9.2 X10*3/uL (4.8-10.8)
[2020-12-01 18:13] LABS: Alanine Aminotransferase 25 U/L (0-31); Albumin Level 4.3 g/dL (3.5-5.0); Alkaline Phosphatase 104 U/L (39-117); Aspartate Amino Transferase 23 U/L (5-31); Bilirubin Direct < 0.2 mg/dL (0.0-0.5); Bilirubin Total 0.3 mg/dL (0.0-1.0); Blood Urea Nitrogen 19 mg/dL (9-16); Estimated Glomerular Filt Rate 56; Total Protein 6.9 g/dL (6.5-8.0)
[2020-12-01 18:48] LABS: Glucose Urine UA NEG (NEG); Leukocyte Esterase Urine TRACE (NEG); Nitrite Urine NEG (NEG); Specific Gravity - Urine >= 1.030 (1.005-1.025); Urine Blood NEG (NEG); Urine Ketones NEG (NEG); Urine Protein 1+ MG/DL (NEG-TRACE)
[2020-12-01 18:49] LABS: Appearance Urine CLEAR; Color Urine DARK YELLOW
[2020-12-01 18:58] LABS: Amorphous Sediment Urine 1+ /LPF; Bacteria Urine TRACE /LPF; Mucus Urine 3+ /LPF; RBC Urine 0 /HPF (0); Squamous Epithelial Cell Urine 1+ /LPF
[2020-12-04 14:17] LABS: IgA 147 mg/dL (70-320); IgG 804 mg/dL (600-1540); IgM 222 mg/dL (50-300)
== END 2020-12-01 15:42 | disposition home or self-care (01) ==
LOC: HO.LAB 15:41
PROVIDERS: PCP Internal Medicine; Visit Provider Physician Assistant
DX: G35 Multiple sclerosis (principal)
CPT/HCPCS: 36415; 80076; 81001; 82565; 82784; 84520; 85025

== ENCOUNTER 2020-12-07 13:06 | Outpatient (REF) | payer MEDICARE, MEDICAID, SELFPAY ==
--- NOTE | ~2020-12-07 | US_ITS ---
EXAMINATION: US EXTRACRANIAL CAROTID DUPLEX, BILATERAL CLINICAL INFORMATION: This is a 65-year-old female with history of hypertension. Carotid artery disease. Slurred speech. COMPARISON: None TECHNIQUE: Real-time ultrasound and Doppler techniques (integrating B-mode 2-D vascular images, Doppler spectral analysis and color-flow Doppler imaging) were utilized to interrogate the extracranial carotid arteries, the vertebral arteries and proximal subclavian arteries bilaterally. The degree of stenosis is determined by criteria similar to NASCET. FINDINGS: Right Side: 1. There is minimal atherosclerotic plaque seen in the bifurcation/proximal ICA region. 2. The common carotid artery PSV proximally is 73 cm/s and distally 80 cm/s. 3. The proximal internal carotid artery velocities are 98 cm/s systolic and 88 cm/s diastolic. 4. The proximal external carotid artery PSV is 104 cm/s. 5. The vertebral artery shows antegrade flow. 6. The subclavian artery waveforms are normal. Left Side: 1. There is a mall atherosclerotic plaque seen in the bifurcation/proximal ICA region. 2. The common carotid artery PSV proximally is 106 cm/s and distally 85 cm/s. 3. The proximal internal carotid artery velocities are 84 cm/s systolic and 81 cm/s diastolic. 4. The proximal external carotid artery PSV is 87 cm/s. 5. The vertebral artery shows antegrade flow. 6. The subclavian artery waveforms are normal. US/US carotid duplex BI IMPRESSION: 1. RIGHT: Minimal, non-hemodynamically significant stenosis of the proximal right internal carotid artery corresponding to a 0-49% stenosis by velocity criteria. 2. LEFT: Minimal, non-hemodynamically significant stenosis of the proximal left internal carotid artery corresponding to a 0-49% stenosis by velocity criteria.
== END 2020-12-07 13:07 | disposition home or self-care (01) ==
LOC: HO.US 13:06
PROVIDERS: Visit Provider Physician Assistant
DX: R47.81 Slurred speech (principal); G35 Multiple sclerosis; I10 Essential (primary) hypertension
CPT/HCPCS: 93880

== ENCOUNTER 2021-02-16 06:59 | Day surgery (SDC) | payer MEDICARE, MEDICAID, SELFPAY ==
[2021-02-12 09:49] VITALS: BMI 32.3
--- NOTE | 2021-02-15 09:35 | HO.ANESPROP2 ---
HPI - Anesthesia Eval Consult details Narrative: 65yo F for Right Genicular Nerve Block Diagnostic Cardiac cleared - SVT controlled with rx adjustments s/p Left side 11/10 with MAC Allergy to Zofran: Hives [facility] Active Problems Active Problems: All Active Problems (Updated 02/12/21 @ 09:54 by Prisca Chaney RN) Preoperative cardiovascular examination (Acute) Precordial chest pain (Acute) Essential hypertension (Acute) SVT (supraventricular tachycardia) (Acute) Paroxysmal SVT (supraventricular tachycardia) (Acute) Multiple sclerosis (Acute) Depression (Acute) Pain syndrome, chronic (Acute) Disc degeneration, lumbar (Acute) Spondylosis of lumbar region without myelopathy or radiculopathy (Acute) Osteoarthritis of knees, bilateral (Acute) Past Medical History Medical History (Updated 02/12/21 @ 09:54 by Prisca Chaney RN) Anxiety Arthritis Depression Disc degeneration, lumbar Essential hypertension GERD (gastroesophageal reflux disease) History of confusion History of dysphagia History of kidney problems Hypertension Memory difficulties Multiple sclerosis Osteoarthritis of knees, bilateral Pain syndrome, chronic Paroxysmal SVT (supraventricular tachycardia) Spondylosis of lumbar region without myelopathy or radiculopathy SVT (supraventricular tachycardia) Urgency of micturition Family History Family History Mother Diabetes Kidney failure Father AAA (abdominal aortic aneurysm, ruptured) Family/Other Mental health disorder Substance use disorder Surgical History Surgical History Deficient knowledge of leg surgery History of appendectomy History of left knee surgery History of myomectomy History of rotator cuff surgery History of surgery on left wrist Hx of hysterectomy Social History Social History Housing: House Are you a primary emergency care attendant to a significant other at home: No Do you presently have visiting nurse or other home services: Yes (Meals on Wheels) Alcohol intake: current Alcohol intake frequency: holidays/special occasions only Patient Tobacco Use Status: Never used Tobacco Second Hand Smoke Exposure: No service: No Current occupational status: retired and disabled Meds Allergies Allergy/AdvReac Type Severity Reaction Status Date / Time prochlorperazine [Compazine] Allergy Severe Dystonic Verified 01/14/21 17:54 Reaction cobalt [COBALT] Allergy Intermediate RASH Verified 01/14/21 17:54 hydrocodone [Vicodin] Allergy Intermediate Nausea and Verified 01/14/21 17:54 Vomiting nickel [NICKEL] Allergy Intermediate RASH Verified 01/14/21 17:54 ondansetron [Zofran] Allergy Intermediate Hives Verified 02/12/21 09:46 morphine AdvReac Intermediate Nausea and Verified 02/12/21 09:46 Vomiting Home Medications Medication Instructions Recorded Confirmed Last Taken Type ergocalciferol (vitamin D2) 1,250 1,250 mcg PO QWEEK 06/05/20 02/12/21 Unknown History mcg (50,000 unit) capsule lorazepam 0.5 mg tablet 0.5 mg PO BID PRN 06/05/20 02/12/21 10/27/20 05:30 History oxcarbazepine 300 mg tablet 300 mg PO BID 06/05/20 02/12/21 02/16/21 History oxybutynin chloride 10 mg 10 mg PO DAILY 06/05/20 10/01/20 10/27/20 05:30 History tablet,extended release 24 hr sertraline 50 mg tablet 50 mg PO BID 06/05/20 02/12/21 02/16/21 History zolpidem 10 mg tablet 10 mg PO BEDTIME PRN 06/05/20 02/12/21 Unknown History quetiapine 50 mg tablet 50 mg PO BEDTIME 08/08/20 02/12/21 Unknown History solifenacin 10 mg tablet 10 mg PO DAILY 01/09/21 02/12/21 Unknown History Exam Exam Date and Time: February 15, 2021 0935 Height,Weight and Vital Signs: Height 5 ft 5 in Weight 87.997 kg Pertinent Lab Results Pertinent Lab Results: Laboratory Tests 08/05/20 12/01/20 12/01/20 11:08 16:07 16:07 WBC 9.2 Hgb 12.4 Hct 37.3 Plt Count 237 Sodium 138 Potassium 4.3 Chloride 108 Carbon Dioxide 19 L BUN 19 H Creatinine 0.99 Narrative Narrative: ECHO 08/2020 Conclusions: -? 1. Normal LV systolic function with impaired relaxation? ? ? filling pattern ? 2. Cardiac valves not well visualized but Doppler within normal limits? 3. Normal RV systolic pressure? 4. No pericardial effusion 48hour Holter 08/2020 Underlying rhythm is sinus; Average ventricular rate 71/wilfredo; range 64-120/min; Occasional PVCs; isolated; Symptoms of chest tightness, shortness of breath, lightheadedness, head pounding? in patient diary associated with sinus? rhythm. NM jose l perf SPECT rest & str 08/2020 Impression: ? 1.? Myocardial perfusion imaging study shows no definitive ischemia or infarction noted. Lateral perfusion defect seems artifactual and more prominent during rest. 2.? Gated LVEF is > 70% during stress; 70% during rest. 3. Transient ischemic dilatation not present. Assessment and Plan Assessment Anesthesia Assessment: Chart Reviewed
--- NOTE | 2021-02-15 18:29 | MHC.SHP ---
Pre-Procedural Eval Section A Date of Service: 02/15/21 Section B Chief Complaint: Osteoarthritis of knees Bilateral Details of Present Illness: As above Relevant Social History: None Present Medications: see Short Stay Collaborative assessment Medical History: Significant History History of Previous Operations: Relevant previous surgery/procedure and date(s) Allergies: Allergies Allergy/AdvReac Type Severity Reaction Status Date / Time prochlorperazine [Compazine] Allergy Severe Dystonic Verified 01/14/21 17:54 Reaction cobalt [COBALT] Allergy Intermediate RASH Verified 01/14/21 17:54 hydrocodone [Vicodin] Allergy Intermediate Nausea and Verified 01/14/21 17:54 Vomiting nickel [NICKEL] Allergy Intermediate RASH Verified 01/14/21 17:54 ondansetron [Zofran] Allergy Intermediate Hives Verified 02/12/21 09:46 morphine AdvReac Intermediate Nausea and Verified 02/12/21 09:46 Vomiting Review of Systems Sugical H&P ROS: Negative: Constitution, Cardiovascular, Respiratory, Neurological, Psychiatric, Hem-Onc, Allergic/Immunologic, Gastrointestinal, Genitourinary, Musculoskeletal, Integumentary, Endocrine and Eyes/Ears/Nose/Throat Exam Surgical H&P Exam: Normal: HEENT, Normal: Heart, Normal: Lungs, Normal: Extremities, Normal: Abdomen, Normal: Skin and Normal: Neurological Plan Diagnosis/Plan: Unchanged I have reviewed the history and physical and performed a pertinent physical examination on my patient. No changes have occurred unless specified.
--- NOTE | ~2021-02-16 | FL_ITS ---
EXAMINATION: XR FLUOROSCOPY WITH IMAGES CLINICAL INFORMATION: Right knee cooled radiofrequency genicular nerve ablation. COMPARISON: None. TECHNIQUE: Fluoroscopy performed by Dr. Favian Sullivan. Fluoroscopy time: 0.3 minutes DAP: 1.14 mGycm2 Images: 4.14 FINDINGS: 2 fluoroscopic images are obtained during right genicular nerve ablation. The 2 submitted lateral views show 3 stylets applied to the superior lateral and medial genicular nerve and the inferior medial genicular nerve. FL/FL guidance in OR IMPRESSION: Intraoperative fluoroscopic guidance is provided during right genicular nerve ablation. Please see Operative Report for full procedural details.
[2021-02-16 07:17] VITALS: BP 141/68; PULSE 82; RESP 18; TEMP 36.1; O2SAT 96
[2021-02-16] MEDS: Lactated Ringers 1,000 ML 100 ML IVCONT (07:33)
[2021-02-16 08:10] VITALS: BP 99/54; PULSE 70; RESP 11; TEMP 36.7; O2SAT 98
--- NOTE | 2021-02-16 08:14 | PM.OP ---
Brief Operative Note Date of Service: 02/16/21 Pre-op diagnosis: Right knee osteoarthritis Post-op diagnosis: same Procedure: RFA of genicular nerves right knee Implants: In a Surgeon: Favian Sullivan MD Anesthesia: MAC Was an Divisional Storekeeper used for this Procedure?: No Estimated blood loss (mL): 1 Pathology: none sent Condition: stable Disposition: PACU
--- NOTE | 2021-02-16 08:16 | W.PM.OPN ---
Operative Note Operative Note Date of Service: 02/16/21 Narrative: Patient came to the operating room after informed consent was obtained.? SHE was positioned supine on the operating table [place] [employer] monitors were applied , patient was sedated.? Time-out procedure was performed delineating correct site and side of the injections, patient's name and date of , allergies, need for antibiotics, risk of fire. ? Patient's right knee as well as anterior surface of lower thigh as well as anterior surface of upper shins were prepped with ChloraPrep and draped with sterile towels.? Sterilely draped C-arm was brought over the operating field and SQ picture of the patient's RIGHT knee was obtained on the screen.? The point of interest were delineated as connection of bilateral epiphysis and diaphysis medial and lateral of the RIGHT? femoral bone, as well as connections of the epiphysis and metaphysis OF THE RIGHT on the medial tibial bone.? The point of interest projection to the skin were injected with small amount of Lidocaine and after that CANNULAS FOR COOLED RADIOFREQUENCY ABLATION were inserted through the skin and advanced to the point of interest on anterior posterior and lateral views.? When radiofrequency cannulas were positioned on the margin of the bone on anterior posterior view and at the mid shaft of the bone on the lateral view the stylets were removed from the needles and cooled RF probes were inserted into the shafts of the cannulas.? Small amount of mixture of bupivacaine 0.5% with trace amount of Kenalog was injected into each cannula through the side ports.? After that the cannula those were connected to the RF machine and 3 minutes of cooled radiofrequency ablation energy at 65? centigrade was applied to the targets.? After that the cannulas were removed sterile Band-Aid were applied. ? ? Patient tolerated procedure well he was awakened and transferred to PACU for recovery he recovered uneventfully and went home without immediate complications.
[2021-02-16 08:25] VITALS: BP 108/74; PULSE 72; RESP 16; O2SAT 96
[2021-02-16 08:40] VITALS: BP 108/64; PULSE 70; RESP 18; TEMP 36.7; O2SAT 97
== END 2021-02-16 09:00 | disposition home or self-care (01) ==
PROVIDERS: PCP Internal Medicine; Visit Provider Anesthesiology
PROC: 3E0T3BZ Introduction of Anesthetic Agent into Peripheral Nerves and Plexi, Percutaneous Approach (ICD-10-PCS; CPT 64454; principal; 2021-02-16 07:30)
DX: M17.0 Bilateral primary osteoarthritis of knee (principal); G89.4 Chronic pain syndrome; M25.561 Pain in right knee; I10 Essential (primary) hypertension; M47.816 Spondylosis without myelopathy or radiculopathy, lumbar region; M51.36 Other intervertebral disc degeneration, lumbar region
CPT/HCPCS: 64624; J2250; J3010; J3300

== ENCOUNTER → 2021-02-21 14:22 | Outpatient (BNVA) | payer MEDICARE, MEDICAID, SELFPAY | PROVIDERS: PCP Internal Medicine; Referring Provider Internal Medicine; Visit Provider Nurse Practitioner Family | DX: I47.1 Supraventricular tachycardia (principal); I10 Essential (primary) hypertension; G35 Multiple sclerosis; R06.02 Shortness of breath; R07.2 Precordial pain | CPT/HCPCS: 99212 ==

== ENCOUNTER 2021-03-02 12:01 | Day surgery (SDC) | payer MEDICARE, MEDICAID, SELFPAY ==
--- NOTE | 2021-03-01 12:15 | P.CONAN_ITS ---
Documented by User: Swetha Rodriguez NP 03/01/21 12:17 HPI - Anesthesia Eval Consult details Narrative: 65yo F for Left Genicular Nerve Block Cooled Radio Frequency Ablation s/p Right side 02/17/21 with MAC Cardiac cleared for prior procedure - SVT controlled with rx adjustments. Chica bartlett cardiac visit 02/21/21 = stable with 6 month f/u. Allergy to Zofran: Hives* PMFSH Active Problems Active Problems: All Active Problems (Updated 02/23/21 @ 11:24 by Rosa Knowles, RN) Preoperative cardiovascular examination (Acute) Precordial chest pain (Acute) Shortness of breath (Acute) Essential hypertension (Acute) SVT (supraventricular tachycardia) (Acute) Paroxysmal SVT (supraventricular tachycardia) (Acute) Multiple sclerosis (Acute) Depression (Acute) Pain syndrome, chronic (Acute) Disc degeneration, lumbar (Acute) Spondylosis of lumbar region without myelopathy or radiculopathy (Acute) Osteoarthritis of knees, bilateral (Acute) Past Medical History Medical History (Updated 02/23/21 @ 11:24 by Rosa Knowles, KRISTIN) Anxiety Arthritis Depression Disc degeneration, lumbar Essential hypertension GERD (gastroesophageal reflux disease) History of confusion History of dysphagia History of kidney problems Hypertension Memory difficulties Multiple sclerosis Osteoarthritis of knees, bilateral Pain syndrome, chronic Paroxysmal SVT (supraventricular tachycardia) Spondylosis of lumbar region without myelopathy or radiculopathy SVT (supraventricular tachycardia) Urgency of micturition Family History Family History Mother Diabetes Kidney failure Father AAA (abdominal aortic aneurysm, ruptured) Family/Other Mental health disorder Substance use disorder Surgical History Surgical History Deficient knowledge of leg surgery History of appendectomy History of left knee surgery History of myomectomy History of rotator cuff surgery History of surgery on left wrist Hx of hysterectomy Social History Social History Housing: House Are you a primary neonatal intensive care unit nurse to a significant other at home: No Do you presently have visiting nurse or other home services: Yes (Meals on Wheels) Alcohol intake: current Alcohol intake frequency: does not drink Patient Tobacco Use Status: Never used Tobacco Second Hand Smoke Exposure: No Use of substances other than those prescribed or required for medical reasons: No Are you DNR?: No Advance Directives: No Advance Directives Information Provided: Yes Advance Directives on File: No service: No Current occupational status: retired and disabled Meds Allergies Allergy/AdvReac Type Severity Reaction Status Date / Time prochlorperazine [Compazine] Allergy Severe Dystonic Verified 02/23/21 11:24 Reaction cobalt [COBALT] Allergy Intermediate RASH Verified 02/23/21 11:24 hydrocodone [Vicodin] Allergy Intermediate Nausea and Verified 02/23/21 11:24 Vomiting nickel [NICKEL] Allergy Intermediate RASH Verified 02/23/21 11:24 ondansetron [Zofran] Allergy Intermediate Hives Verified 02/23/21 11:24 morphine AdvReac Intermediate Nausea and Verified 02/23/21 11:24 Vomiting Home Medications Medication Instructions Recorded Confirmed Last Taken Type ergocalciferol (vitamin D2) 1,250 1,250 mcg PO QWEEK 06/05/20 02/23/21 Unknown History mcg (50,000 unit) capsule lorazepam 0.5 mg tablet 0.5 mg PO BID PRN 06/05/20 02/23/21 10/27/20 05:30 History oxcarbazepine 300 mg tablet 300 mg PO BID 06/05/20 02/23/21 02/16/21 History sertraline 50 mg tablet 50 mg PO BID 06/05/20 02/23/21 02/16/21 History zolpidem 10 mg tablet 10 mg PO BEDTIME PRN 06/05/20 02/23/21 Unknown History quetiapine 50 mg tablet 50 mg PO BEDTIME 08/08/20 02/23/21 Unknown History solifenacin 10 mg tablet 10 mg PO DAILY 01/09/21 02/23/21 Unknown History carvedilol 12.5 mg tablet 25 mg PO QAM tab 02/21/21 02/23/21 Unknown History Exam Exam Date and Time: March 01, 2021 1215 Narrative Narrative: ECHO 08/2020 Conclusions: -? 1. Normal LV systolic function with impaired relaxation? ? ? filling pattern ? 2. Cardiac valves not well visualized but Doppler within normal limits? 3. Normal RV systolic pressure? 4. No pericardial effusion 48hour Holter 08/2020 Underlying rhythm is sinus; Average ventricular rate 71/wilfredo; range 64-120/min; Occasional PVCs; isolated; Symptoms of chest tightness, shortness of breath, lightheadedness, head pounding? in patient diary associated with sinus? rhythm. NM jose l perf SPECT rest & str 08/2020 Impression: ? 1.? Myocardial perfusion imaging study shows no definitive ischemia or infarction noted. Lateral perfusion defect seems artifactual and more prominent during rest. 2.? Gated LVEF is > 70% during stress; 70% during rest. 3. Transient ischemic dilatation not present. Assessment and Plan Assessment Anesthesia Assessment: Chart Reviewed Documented by User: Emilie Barrett MD 03/02/21 15:05 PMFSH Past Medical History Medical History (Updated 02/23/21 @ 11:24 by Rosa Knowles, KRISTIN) Anxiety Arthritis Depression Disc degeneration, lumbar Essential hypertension GERD (gastroesophageal reflux disease) History of confusion History of dysphagia History of kidney problems Hypertension Memory difficulties Multiple sclerosis Osteoarthritis of knees, bilateral Pain syndrome, chronic Paroxysmal SVT (supraventricular tachycardia) Spondylosis of lumbar region without myelopathy or radiculopathy SVT (supraventricular tachycardia) Urgency of micturition Family History Family History Mother Diabetes Kidney failure Father AAA (abdominal aortic aneurysm, ruptured) Family/Other Mental health disorder Substance use disorder Surgical History Surgical History Deficient knowledge of leg surgery History of appendectomy History of left knee surgery History of myomectomy History of rotator cuff surgery History of surgery on left wrist Hx of hysterectomy Social History Social History Housing: House Are you a primary neonatal intensive care unit nurse to a significant other at home: No Do you presently have visiting nurse or other home services: Yes (Meals on Wheels) Alcohol intake: current Alcohol intake frequency: does not drink Patient Tobacco Use Status: Never used Tobacco Second Hand Smoke Exposure: No Use of substances other than those prescribed or required for medical reasons: No Are you DNR?: No Advance Directives: No Advance Directives Information Provided: Yes Advance Directives on File: No service: No Current occupational status: retired and disabled Meds Allergies Allergy/AdvReac Type Severity Reaction Status Date / Time prochlorperazine [Compazine] Allergy Severe Dystonic Verified 02/23/21 11:24 Reaction cobalt [COBALT] Allergy Intermediate RASH Verified 02/23/21 11:24 hydrocodone [Vicodin] Allergy Intermediate Nausea and Verified 02/23/21 11:24 Vomiting nickel [NICKEL] Allergy Intermediate RASH Verified 02/23/21 11:24 ondansetron [Zofran] Allergy Intermediate Hives Verified 02/23/21 11:24 morphine AdvReac Intermediate Nausea and Verified 02/23/21 11:24 Vomiting Home Medications Medication Instructions Recorded Confirmed Last Taken Type ergocalciferol (vitamin D2) 1,250 1,250 mcg PO QWEEK 06/05/20 02/23/21 Unknown History mcg (50,000 unit) capsule lorazepam 0.5 mg tablet 0.5 mg PO BID PRN 06/05/20 02/23/21 10/27/20 05:30 History oxcarbazepine 300 mg tablet 300 mg PO BID 06/05/20 02/23/21 02/16/21 History sertraline 50 mg tablet 50 mg PO BID 06/05/20 02/23/21 02/16/21 History zolpidem 10 mg tablet 10 mg PO BEDTIME PRN 06/05/20 02/23/21 Unknown History quetiapine 50 mg tablet 50 mg PO BEDTIME 08/08/20 02/23/21 Unknown History solifenacin 10 mg tablet 10 mg PO DAILY 01/09/21 02/23/21 Unknown History carvedilol 12.5 mg tablet 25 mg PO QAM tab 02/21/21 02/23/21 Unknown History Exam Airway Mallampati Class: III TM Dist: >3cm Neck ROM: Full Loose/Missing/Broken Teeth: Upper and Lower
--- NOTE | ~2021-03-02 | FL_ITS ---
EXAMINATION: XR FLUOROSCOPY WITH IMAGES CLINICAL INFORMATION: Left knee RFA COMPARISON: None. TECHNIQUE: Fluoroscopy performed by Dr. Favian Sullivan. Fluoroscopy time: 0.5 minutes DAP: 1.81 Gycm2 Images: 2 FL/FL guidance in OR IMPRESSION: Intraoperative fluoroscopic guidance provided for placement of needles for left knee radiofrequency ablation. There is tricompartmental degenerative arthrosis. Please see separately dictated procedure report for procedure details.
[2021-03-02 12:22] VITALS: BP 138/75; PULSE 82; RESP 18; TEMP 36.2; O2SAT 96; BMI 32.4
[2021-03-02] MEDS: Lactated Ringers 1,000 ML 50 ML IVCONT (12:30)
--- NOTE | 2021-03-02 15:07 | P.HPSUR_ITS ---
Pre-Procedural Eval Section A Date of Service: 03/02/21 The patient is an INPATIENT: No Changes since office visit: Yes Patient answered all questions The History & Physical has been completed within 30 days and I have reviewed it.: No Section B Chief Complaint: Osteoarthritis of knees, Bilateral Details of Present Illness: as above Relevant Family History (Specify if Yes): No Relevant Social History: None Present Medications: see Short Stay Collaborative assessment Medical History: Significant History History of Previous Operations: No relevant previous surgery Allergies: Allergies Allergy/AdvReac Type Severity Reaction Status Date / Time prochlorperazine [Compazine] Allergy Severe Dystonic Verified 02/23/21 11:24 Reaction cobalt [COBALT] Allergy Intermediate RASH Verified 02/23/21 11:24 hydrocodone [Vicodin] Allergy Intermediate Nausea and Verified 02/23/21 11:24 Vomiting nickel [NICKEL] Allergy Intermediate RASH Verified 02/23/21 11:24 ondansetron [Zofran] Allergy Intermediate Hives Verified 02/23/21 11:24 morphine AdvReac Intermediate Nausea and Verified 02/23/21 11:24 Vomiting Review of Systems Sugical H&P ROS: Negative: Constitution, Cardiovascular, Respiratory, Neurological, Psychiatric, Hem-Onc, Allergic/Immunologic, Gastrointestinal, Genitourinary, Musculoskeletal, Integumentary, Endocrine and Eyes/Ears/Nose /Throat Exam Surgical H&P Exam: Normal: HEENT, Normal: Heart, Normal: Lungs, Normal: Extremities, Normal: Abdomen, Normal: Skin and Normal: Neurological Plan Diagnosis/Plan: Unchanged I have reviewed the history and physical and performed a pertinent physical examination on my patient. No changes have occurred unless specified.
--- NOTE | 2021-03-02 15:44 | P.BOP_ITS ---
Brief Operative Note Date of Service: 03/02/21 Pre-op diagnosis: left knee osteoarthritis Procedure: Cooled RF genicular nerves left knee. Implants: none Surgeon: Favian Sullivan MD Anesthesia: MAC Was an Certified Anesthesiologist Assistant used for this Procedure?: No Estimated blood loss (mL): 1 Pathology: none sent Condition: stable Disposition: PACU
--- NOTE | 2021-03-02 15:47 | W.PM.OPN ---
Operative Note Operative Note Date of Service: 03/02/21 Narrative: Sarah is very pleasant 65 y.o. female who came today the operating room for the treatment of radiofrequency ablation of the genicular nerves of the left knee. After obtaining informed consent she was brought to the operating room. She was positioned supine on the operating table with her left leg elevated on a gel bin. [place] [employer] were applied. The patient was moderately sedated. Time-out was performed delineating correct site and side of the procedure, name and date of today, risk of fire, need of antibiotics which is none, need for DVT prophylaxis which is none. The anterior lateral and medial portions of the patient's knee as well as anterior lower thigh and upper lower leg were prepped with ChloraPrep and draped with sterile utility towels. A C-arm was brought over the operating field and sq picture of the patient's knee was demonstrated on the screen. The point of interest were delineated as: For infrapatellar saphenous nerve as a confluence of the medial margin of the metaphysis and diaphysis of the tibial bone on the anterior posterior view and the mid shaft of the tibial bone on the lateral view. For suprapatellar saphenous as a confluence on the medial margin of metaphysis and diaphysis of the femur and again mid shaft of the femur on the lateral view. For the lateral genicular nerve a confluence of lateral margin of metaphysis and diaphysis of the femur and again mid shaft of the femur on the lateral view. The projection of the point of the interests to the skin on the anterior posterior view was injected with lidocaine 2% 1-2 cc. The care was taken to keep the knee in the sq position so the lateral and medial condyle on the lateral view superimposed one against the other. After that 50 mm radiofrequency cannulas were inserted through the skin and advanced to the point of interests. After satisfactory position of the tips of the cannulas were determined the stylets were removed and radiofrequency probes were reinserted. The position of the needles were verified by last x-ray picture and after that energy of cooled radiofrequency ablation was applied for 2 minutes 45 seconds at 60? centigrade. The patient tolerated procedure well. Upon completion of the energy application the device was removed from the patient's knee and sterile dressing was applied. Patient was taking outside of the operating room to recovery room where she recovered uneventfully.
[2021-03-02 15:52] VITALS: BP 173/90; PULSE 66; RESP 12; TEMP 36.8; O2SAT 100
[2021-03-02 15:55] VITALS: BP 155/90
[2021-03-02 16:10] VITALS: BP 160/90; PULSE 80; RESP 20; TEMP 36.6; O2SAT 97
== END 2021-03-02 16:35 | disposition home or self-care (01) ==
PROVIDERS: PCP Internal Medicine; Visit Provider Anesthesiology
PROC: 3E0T3BZ Introduction of Anesthetic Agent into Peripheral Nerves and Plexi, Percutaneous Approach (ICD-10-PCS; CPT 64454; principal; 2021-03-02 13:00)
DX: M17.12 Unilateral primary osteoarthritis, left knee (principal); G89.4 Chronic pain syndrome; G35 Multiple sclerosis; I10 Essential (primary) hypertension; I25.10 Atherosclerotic heart disease of native coronary artery without angina pectoris
CPT/HCPCS: 64624; J2250; J3010; J3300

== ENCOUNTER → 2021-03-29 10:43 | Outpatient (BNVA) | payer MEDICARE, MEDICAID, SELFPAY | PROVIDERS: PCP Internal Medicine; Visit Provider Anesthesiology | DX: M17.0 Bilateral primary osteoarthritis of knee (principal); M47.816 Spondylosis without myelopathy or radiculopathy, lumbar region; M51.36 Other intervertebral disc degeneration, lumbar region; G89.4 Chronic pain syndrome | CPT/HCPCS: 99212 ==

== ENCOUNTER → 2021-04-09 15:10 | Outpatient (BNVA) | payer MEDICARE, MEDICAID, SELFPAY | PROVIDERS: PCP Internal Medicine; Visit Provider Anesthesiology | DX: M17.0 Bilateral primary osteoarthritis of knee (principal); M47.816 Spondylosis without myelopathy or radiculopathy, lumbar region; M51.36 Other intervertebral disc degeneration, lumbar region; G89.4 Chronic pain syndrome | CPT/HCPCS: Q3014 ==

== ENCOUNTER 2021-04-26 15:50 | Outpatient (REF) | payer MEDICARE, MEDICAID, SELFPAY ==
[2021-04-26 16:25] LABS: Basophils Absolute Auto 0.1 X10*3/uL (0.0-0.2); Basophils Percent Auto 0.5 % (0-2); Eosinophils Absolute Auto 0.3 X10*3/uL (0.0-0.4); Hemoglobin 11.9 g/dl (12.0-16.0); Imm Gran Abs Auto 0.11 X10*3/uL (0.00-0.03); Imm Gran Pct Auto 1.2 % (0.0-0.4); Lymphocytes Absolute Auto 2.6 X10*3/uL (1.2-4.9); Lymphocytes Percent Auto 26.8 % (20-40); MANUAL DIFF FLAG NO; Mean Corpuscular Hemoglobin 29.6 pg (27.0-33.0); Mean Corpuscular Volume 87.1 fL (80.0-98.0); Mean Platelet Volume 9.3 fL (9.4-12.3); Monocytes Absolute Auto 0.6 X10*3/uL (0.1-1.2); Neutrophils Percent Auto 62.5 % (45-73); Platelet Count 223 X10*3/uL (160-400); Red Blood Count 4.02 X10*6/uL (4.20-5.50); Red Cell Distribution Width 12.5 % (11.0-16.0); White Blood Count 9.5 X10*3/uL (4.8-10.8)
[2021-04-26 18:42] LABS: Alanine Aminotransferase 21 U/L (0-31); Albumin Level 4.2 g/dL (3.5-5.0); Alkaline Phosphatase 92 U/L (39-117); Aspartate Amino Transferase 20 U/L (5-31); Bilirubin Direct < 0.2 mg/dL (0.0-0.5); Bilirubin Total 0.4 mg/dL (0.0-1.0); Blood Urea Nitrogen 15 mg/dL (9-16); Estimated Glomerular Filt Rate 54; Total Protein 6.8 g/dL (6.5-8.0)
[2021-04-27 18:05] LABS: Immunoglobulin A 143 mg/dL (70-320); Immunoglobulin G 738 mg/dL (600-1540); Immunoglobulin M 226 mg/dL (50-300)
== END 2021-04-26 15:51 | disposition home or self-care (01) ==
LOC: HO.LAB 15:50
PROVIDERS: PCP Internal Medicine; Visit Provider Physician Assistant
DX: G35 Multiple sclerosis (principal)
CPT/HCPCS: 36415; 80076; 82565; 82784; 84520; 85025

== ENCOUNTER 2021-05-08 09:53 | Outpatient (REF) | payer MEDICARE, MEDICAID, SELFPAY ==
[2021-05-08 10:41] LABS: COVID-19 Test Positive (Negative)
== END 2021-05-08 09:54 | disposition home or self-care (01) ==
LOC: HO.LAB 09:53
PROVIDERS: PCP Internal Medicine; Visit Provider Internal Medicine
DX: Z20.822 Contact with and (suspected) exposure to COVID-19 (principal)
CPT/HCPCS: 36415; 87635; C9803

== ENCOUNTER 2021-05-15 20:03 | Inpatient (IN) | payer MEDICARE, MEDICAID, SELFPAY ==
--- NOTE | ~2021-05-15 | XR_ITS ---
EXAMINATION: XR CHEST CLINICAL INFORMATION: Cough. Covid positive. COMPARISON: Chest x-ray 11/19/2019 TECHNIQUE: Frontal view of the chest was obtained. 9:27 PM FINDINGS: Multifocal patchy airspace opacities. This is consistent with clinical history of Covid 19 positive No pleural effusion. No pneumothorax. Cardiac and mediastinal contours are unchanged. No pulmonary vascular congestion. Old healed fracture of the left lateral fifth rib again noted. Multilevel degenerative spondylosis of the spine. XR/XR chest 1V IMPRESSION: Multifocal patchy airspace opacity. This is consistent with clinical history of Covid 19 positive.
--- NOTE | ~2021-05-15 | CT_ITS ---
EXAMINATION: CT ANGIOGRAM OF THE CHEST WITH AND WITHOUT CONTRAST (CT PULMONARY ANGIOGRAM FOR PE) CLINICAL INFORMATION: Reason for Exam SOB; COMPARISON: 12/30/2017 TECHNIQUE: Prior to contrast administration, noncontrast localization images were obtained. Subsequently, multidetector volumetric imaging was performed from the thoracic inlet to below the diaphragms following the administration of 65 mL Omnipaque 350 intravenous contrast. No contrast reaction reported Sagittal, coronal, and MIP oblique sagittal reformatted images were obtained on the CT workstation, uploaded to PACS, and reviewed. This CT examination was performed using dose optimization techniques as appropriate, variously including the following: *Automated exposure control *Adjustment of mA and/or kV according to patient size (this includes techniques or standardized protocols for targeted exams where dose is matched to indication/reason for exam; i.e. extremities or head) *Use of iterative reconstruction technique Total exam dose-length product 485 mGy-cm FINDINGS: QUALITY OF STUDY/CONTRAST BOLUS: Satisfactory. PULMONARY ARTERIES: No central or segmental pulmonary emboli. THORACIC AORTA: No aneurysm or dissection. Scattered atherosclerotic calcifications are present. LUNG: There are multifocal patchy bilateral groundglass opacities and consolidations with overall basilar predominance, suspicious for an infectious etiology; this pattern can be seen with Covid pneumonia. PLEURA: No pleural effusion or pneumothorax. MEDIASTINUM: There is a right thyroid nodule measuring approximately 1.8 cm in diameter. There are subcentimeter mediastinal lymph nodes within the range of normal variation. Cardiac size is within normal limits; no pericardial effusion. CHEST WALL/AXILLA: No axillary or internal mammary lymphadenopathy. OSSEOUS STRUCTURES: Healed left rib fractures are noted. Degenerative changes are noted in the spine. UPPER ABDOMEN: The spleen appears mildly enlarged to approximately 14.5 cm. There is partial fatty atrophy of the pancreas. No reflux of contrast into the hepatic veins to suggest elevated right heart pressures. CT/CT angio chest PE protocol IMPRESSION: 1. No pulmonary embolus identified. 2. Multifocal patchy bilateral groundglass opacities and consolidations, suspicious for infection. This distribution can be seen with Covid pneumonia. 3. Right thyroid lobe nodule measuring approximately 1.8 cm. If not already performed, further workup with nonemergent ultrasound is recommended. 4. Mild splenomegaly. VTE: negative
[2021-05-15 20:59] VITALS: PULSE 98; RESP 16; TEMP 38.5; O2SAT 98; BMI 38.3
--- NOTE | 2021-05-15 21:21 | ED_ITS ---
HPI - URI/Sore Throat General Chief Complaint: Upper Respiratory Symptoms Stated Complaint: +Covid/coughing Time Seen by Provider: 05/15/21 21:12 Source: patient and EMS Mode of arrival: EMS Limitations: no limitations History of Present Illness HPI Narrative: 65-year-old female came in for evaluation of shortness of breath and coughing. Patient was diagnosed with COVID infection last week, patient lives home alone, patient return to the emergency room for increased shortness of breath and increased dry coughing, fever and chills. Patient overall feels sick, patient also complained of chest pain and that is constant, only with coughing, pain is diffuse so the whole chest wall, worsening with coughing and movement. Related Data Home Medications Medication Instructions Recorded Confirmed ergocalciferol (vitamin D2) 1,250 1,250 mcg PO QWEEK 06/05/20 05/16/21 mcg (50,000 unit) capsule lorazepam 0.5 mg tablet 0.5 mg PO BID PRN 06/05/20 05/16/21 oxcarbazepine 300 mg tablet 300 mg PO BID 06/05/20 05/16/21 zolpidem 10 mg tablet 10 mg PO BEDTIME PRN 06/05/20 05/16/21 quetiapine 50 mg tablet 50 mg PO BEDTIME 08/08/20 05/16/21 solifenacin 10 mg tablet 10 mg PO DAILY 01/09/21 05/16/21 sertraline 50 mg tablet 75 mg PO BID tab 05/09/21 05/16/21 Previous Rx's Medication Instructions Recorded cyclobenzaprine 10 mg tablet 10 mg PO TID #45 tab 01/11/21 ibuprofen 200 mg tablet 400 mg PO TID PRN #270 tab 01/11/21 carvedilol 12.5 mg tablet 25 mg PO QAM #180 tab 03/21/21 omeprazole 20 mg capsule,delayed 20 mg PO BID #180 cap 04/27/21 release oxycodone 5 mg tablet 5 mg PO BID #60 tab 04/27/21 diltiazem HCl 120 mg 120 mg PO DAILY #30 cap 05/09/21 capsule,extended release 24 hr Allergies Allergy/AdvReac Type Severity Reaction Status Date / Time prochlorperazine [Compazine] Allergy Severe Dystonic Verified 05/09/21 15:00 Reaction cobalt [COBALT] Allergy Intermediate RASH Verified 05/09/21 15:00 hydrocodone [Vicodin] Allergy Intermediate Nausea and Verified 05/09/21 15:00 Vomiting nickel [NICKEL] Allergy Intermediate RASH Verified 05/09/21 15:00 ondansetron [Zofran] Allergy Intermediate Hives Verified 05/09/21 15:00 morphine AdvReac Intermediate Nausea and Verified 05/09/21 15:00 Vomiting Review of Systems Review of Systems: all other systems are reviewed and are negative Constitutional: Reports as per HPI and Reports no additional constitutional complaints Eyes: Reports as per HPI and Reports no additional eye complaints Reports system reviewed and no additional complaints, except as documented Cardiovascular: Reports as per HPI and Reports no additional cardiovascular complaints Respiratory: Reports as per HPI and Reports no additional respiratory complaints Gastrointestinal: Reports as per HPI and Reports no additional gastrointestinal complaints Genitourinary: Reports no additional female genitourinary complaints Musculoskeletal: Reports no additional musculoskeletal complaints Skin/Breast: Reports system reviewed and no additional complaints, except as docu Psychiatric: Reports no additional psychiatric complaints Endocrine: Reports no additional endocrine complaints Hematologic/Lymphatic: Reports no additional hematologic/lymphatic complaints Allergic/Immunologic: Reports no additional allergic/immunologic complaints Reports system reviewed and no additional complaints, except as documented and Reports Abnormal speech present [facility] Past Medical History Medical History Anxiety Arthritis Depression Disc degeneration, lumbar Essential hypertension GERD (gastroesophageal reflux disease) History of confusion History of dysphagia History of kidney problems Hypertension Memory difficulties Multiple sclerosis Osteoarthritis of knees, bilateral Osteoarthritis of right knee Pain syndrome, chronic Paroxysmal SVT (supraventricular tachycardia) Spondylosis of lumbar region without myelopathy or radiculopathy SVT (supraventricular tachycardia) Urgency of micturition Surgical History Deficient knowledge of leg surgery History of appendectomy History of left knee surgery History of myomectomy History of rotator cuff surgery History of surgery on left wrist Hx of hysterectomy Family History Family History Mother Diabetes Kidney failure Father AAA (abdominal aortic aneurysm, ruptured) Family/Other Mental health disorder Substance use disorder Social History Social History Housing: House Are you a primary vision care associate to a significant other at home: No Do you presently have visiting nurse or other home services: Yes (Meals on Wheels) Alcohol intake: current Alcohol intake frequency: holidays/special occasions only Patient Tobacco Use Status: Never used Tobacco e-Cigarette/Vaping Use: Never Used Second Hand Smoke Exposure: No Use of substances other than those prescribed or required for medical reasons: No Advance Directives: No Advance Directives Information Provided: No service: No Current occupational status: retired and disabled Cognitive needs: Yes (walker) Hearing needs: No Vision needs: No Physical Exam Vital Signs: Vital Signs: Last Vital Signs Temp 99.4 F 05/16/21 04:51 Pulse 82 05/16/21 04:51 Resp 18 05/16/21 04:51 BP 121/83 05/16/21 04:51 Pulse Ox 97 05/16/21 04:51 Body Mass Index 38.3 vital signs have been reviewed as appeared to be correct. Blood pressure normal. Heart rate normal. Respiration rate normal. Temperature elevated. Oxygen saturation normal. Appearance: Alert. Oriented X3. No acute distress. Head: Normal external exam. Normocephalic. Atraumatic. No Lopez signs noted. No raccoon eyes noted Eyes: PERRLA. EOMI. Conjunctiva and sclera normal. Eyelids normal. ENT: TM's Normal. Pharynx normal. Uvula midline. Moist mucous membranes. No trismus noted. No drooling noted. No muffled voice noted. Neck: Normal inspection. Neck supple. FROM. No adenopathy. Thyroid Normal. No meningeal signs. No neck mass noted. CVS: Normal heart rate and rhythm. Heart sound normal. No murmurs noted. Pulses normal throughout. Respiratory: No respiratory distress. Painless inspiration. Breath sounds normal. No wheezes/rales/rhonchi noted. Chest nontender. No accessory muscle usage noted or decreased air movement noted. Abdomen: Soft and nontender. Bowel sounds normal in all 4 quadrants. No distention noted. No organomegaly noted. No visible injury noted. Back: No CVA tenderness. Full range of motion noted. Skin: Skin warm and dry. Normal skin color. Normal skin turgor. No rashes/lesions/lacerations noted. Extremities: No lower extremity edema. Extremities exhibit normal range of motion. Extremities nontender. Neuro: Oriented X 3. Cranial nerve exam: II-XII are grossly intact No motor deficit. No sensory deficit. Reflexes normal. Course Course Course Narrative: assessment and plan. 65-year-old female was diagnosed a week ago with cough id infection, patient at home feeling very sick and weak, with difficulty breathing and coughing. Patient found to have a multilobar pneumonia on the x-ray with normal O2 sat. Will admit the patient for IV antibiotic support supplemental oxygen. MDM - URI/Sore Throat Medical Records Attestation: I reviewed the patient's medical records. Lab Data Attestation: I reviewed the patient's lab results. Result diagrams: 05/15/21 21:25 05/15/21 21:25 Labs: Lab Results 05/15/21 05/15/21 05/15/21 Range/Units 21:25 21:25 21:25 WBC 4.2 L (4.8-10.8) X10*3/uL RBC 3.84 L (4.20-5.50) X10*6/uL Hgb 11.6 L (12.0-16.0) g/dl Hct 32.9 L (37.0-47.0) % MCV 85.7 (80.0-98.0) fL MCH 30.2 (27.0-33.0) pg MCHC 35.3 H (31.0-35.0) g/dl RDW 12.9 (11.0-16.0) % Plt Count 98 L D (160-400) X10*3/uL MPV 9.9 (9.4-12.3) fL Immature Gran % (Auto) 1.0 H (0.0-0.4) % Neut % (Auto) 69.8 (45-73) % Lymph % (Auto) 20.3 (20-40) % [place] % (Auto) 8.4 (2-11) % Eos % (Auto) 0.5 (0-4) % Baso % (Auto) 0.0 (0-2) % Lymph # (Auto) 0.9 L (1.2-4.9) X10*3/uL [place] # (Auto) 0.4 (0.1-1.2) X10*3/uL Eos # (Auto) 0.0 (0.0-0.4) X10*3/uL Baso # (Auto) 0.0 (0.0-0.2) X10*3/uL Abs Immat Gran (auto) 0.04 H (0.00-0.03) X10*3/uL Absolute Neuts (auto) 2.9 (2.0-8.3) x10*3/uL Absolute Nucleated RBC 0.000 (0.0-0.012) X10*3/uL Nucleated RBC % (auto) 0.0 (0.0-0.2) /100WBC Smear Tech's Comments VERIFIED Sodium 131 L (135-145) mmol/L Potassium 3.5 (3.3-5.1) mmol/L Chloride 103 (96-108) mmol/L Carbon Dioxide 19 L (22-29) mmol/L Anion Gap 13 (12-20) BUN 15 (9-16) mg/dL Creatinine 1.22 (0.5-1.4) mg/dL Estim Creat Clear Calc 51.8 Estimated GFR 44 Random Glucose 118 H (60-115) mg/dL Lactic Acid 1.2 (0.5-2.0) mmol/L Calcium 7.6 L D (8.4-10.2) mg/dL Total Bilirubin 0.5 (0.0-1.0) mg/dL AST 43 H D (5-31) U/L ALT 42 H (0-31) U/L Alkaline Phosphatase 64 D (39-117) U/L Troponin I High Sens (<3.5-17.0) ng/L Total Protein 6.0 L (6.5-8.0) g/dL Albumin 3.7 (3.5-5.0) g/dL Influenza Type A (PCR) (Negative) Influenza Type B (PCR) (Negative) RSV RNA Qual (PCR) (Negative) SARS-CoV-2 RNA (RT-PCR) (Negative) 05/15/21 05/15/21 Range/Units 21:25 21:27 WBC (4.8-10.8) X10*3/uL RBC (4.20-5.50) X10*6/uL Hgb (12.0-16.0) g/dl Hct (37.0-47.0) % MCV (80.0-98.0) fL MCH (27.0-33.0) pg MCHC (31.0-35.0) g/dl RDW (11.0-16.0) % Plt Count (160-400) X10*3/uL MPV (9.4-12.3) fL Immature Gran % (Auto) (0.0-0.4) % Neut % (Auto) (45-73) % Lymph % (Auto) (20-40) % [place] % (Auto) (2-11) % Eos % (Auto) (0-4) % Baso % (Auto) (0-2) % Lymph # (Auto) (1.2-4.9) X10*3/uL [place] # (Auto) (0.1-1.2) X10*3/uL Eos # (Auto) (0.0-0.4) X10*3/uL Baso # (Auto) (0.0-0.2) X10*3/uL Abs Immat Gran (auto) (0.00-0.03) X10*3/uL Absolute Neuts (auto) (2.0-8.3) x10*3/uL Absolute Nucleated RBC (0.0-0.012) X10*3/uL Nucleated RBC % (auto) (0.0-0.2) /100WBC Smear Tech's Comments Sodium (135-145) mmol/L Potassium (3.3-5.1) mmol/L Chloride (96-108) mmol/L Carbon Dioxide (22-29) mmol/L Anion Gap (12-20) BUN (9-16) mg/dL Creatinine (0.5-1.4) mg/dL Estim Creat Clear Calc Estimated GFR Random Glucose (60-115) mg/dL Lactic Acid (0.5-2.0) mmol/L Calcium (8.4-10.2) mg/dL Total Bilirubin (0.0-1.0) mg/dL AST (5-31) U/L ALT (0-31) U/L Alkaline Phosphatase (39-117) U/L Troponin I High Sens 12.1 (<3.5-17.0) ng/L Total Protein (6.5-8.0) g/dL Albumin (3.5-5.0) g/dL Influenza Type A (PCR) NEGATIVE (Negative) Influenza Type B (PCR) NEGATIVE (Negative) RSV RNA Qual (PCR) NEGATIVE (Negative) SARS-CoV-2 RNA (RT-PCR) POSITIVE A (Negative) Imaging Data Chest x-ray: Radiologist's impression: Multifocal patchy airspace opacity. This is consistent with clinical history of Covid 19 positive. Discharge Plan Discharge Clinical Impression: COVID-19, Pneumonia Patient Disposition: Admitted As Inpatient
[2021-05-15 21:36] LABS: Eosinophils Percent Auto 0.5 % (0-4); Hemoglobin 11.6 g/dl (12.0-16.0); Imm Gran Abs Auto 0.04 X10*3/uL (0.00-0.03); MANUAL DIFF FLAG SCAN; Monocytes Percent Auto 8.4 % (2-11); PLT CLUMP 1; Red Cell Distribution Width 12.9 % (11.0-16.0); SCAN SMEAR FLAG 1
[2021-05-15 21:38] LABS: Hematocrit 32.9 % (37.0-47.0); Lymphocytes Absolute Auto 0.9 X10*3/uL (1.2-4.9); Lymphocytes Percent Auto 20.3 % (20-40); Mean Corpuscular HGB Conc 35.3 g/dl (31.0-35.0); Mean Corpuscular Hemoglobin 30.2 pg (27.0-33.0); Mean Corpuscular Volume 85.7 fL (80.0-98.0); Mean Platelet Volume 9.9 fL (9.4-12.3); Monocytes Absolute Auto 0.4 X10*3/uL (0.1-1.2); Neutrophils Absolute Auto 2.9 x10*3/uL (2.0-8.3); Neutrophils Percent Auto 69.8 % (45-73); Red Blood Count 3.84 X10*6/uL (4.20-5.50); White Blood Count 4.2 X10*3/uL (4.8-10.8)
[2021-05-15 21:46] LABS: Lactic Acid 1.2 mmol/L (0.5-2.0)
[2021-05-15 21:48] LABS: Platelet Count 98 X10*3/uL (160-400)
[2021-05-15 21:51] LABS: Alanine Aminotransferase 42 U/L (0-31); Albumin Level 3.7 g/dL (3.5-5.0); Alkaline Phosphatase 64 U/L (39-117); Anion Gap 13 (12-20); Aspartate Amino Transferase 43 U/L (5-31); Bilirubin Total 0.5 mg/dL (0.0-1.0); Blood Urea Nitrogen 15 mg/dL (9-16); Calcium 7.6 mg/dL (8.4-10.2); Carbon Dioxide 19 mmol/L (22-29); Chloride 103 mmol/L (96-108); Creatinine Clr Calc Pharmacy 51.8; Estimated Glomerular Filt Rate 44; Glucose Random 118 mg/dL (60-115); Potassium 3.5 mmol/L (3.3-5.1); Sodium 131 mmol/L (135-145)
[2021-05-15 22:01] LABS: Troponin-I High Sensitivity 12.1 ng/L (<3.5-17.0)
[2021-05-15 22:01] LABS: SLIDE REVIEW VERIFIED
[2021-05-15] MEDS: Acetaminophen 325 MG TABLET 650 MG PO (22:10)
[2021-05-15] MEDS: HYDROcodone/Homat 5/1.5/5 ML 5 ML SYRUP 10 ML PO (22:10)
[2021-05-15 22:13] LABS: Influenza A PCR NEGATIVE (Negative); Influenza B PCR NEGATIVE (Negative); Resp Syncy Virus RNA Qual PCR NEGATIVE (Negative); SARS COV2 PCR INHOUSE POSITIVE (Negative)
[2021-05-15 22:27] VITALS: BP 147/85; PULSE 95; RESP 16; TEMP 38.8; O2SAT 95
--- NOTE | 2021-05-15 22:28 | PC.NURSE ---
PATIENT WAS CHANGE INTO HOSPITAL ATTIRE BY THIS PCT ,
--- NOTE | 2021-05-15 22:28 | PC.NURSE ---
PATIENT WAS ASSISTED ON BED FER[place] ,VOIDED [place] .
--- NOTE | 2021-05-15 22:48 | P.HPHOSP_ITS ---
History of Present Illness Date of Service: 05/15/21 Chief Complaint: Shortness of breath 65-year-old female with a past medical history of hypertension, hyperlipidemia, anxiety, depression, osteoarthritis, multiple sclerosis, chronic pain syndrome, history of paroxysmal SVT, GERD, history of dysphagia presented to the hospital today with a chief complaint of shortness of breath and cough. Patient reported that she was diagnosed with COVID-19 infection about a week ago and has been at home trying to quarantine herself; but she continued to have the symptoms; continued to have shortness of breath and dyspnea on exertion associated with cough. Reports subjective fevers and chills. Also complains of generalized weakness and exertion. Denies any nausea vomiting or diarrhea. Denies any chest pain palpitations lightheadedness or dizziness. Review of all other systems is negative except mentioned above ER course: Per ER team patient breathing comfortably, saturating at 95%; x-ray showed multilobar pneumonia. Given antibiotics. COVID-19 positive. Admitted for further management. [facility] Medical History Anxiety Arthritis Depression Disc degeneration, lumbar Essential hypertension GERD (gastroesophageal reflux disease) History of confusion History of dysphagia History of kidney problems Hypertension Memory difficulties Multiple sclerosis Osteoarthritis of knees, bilateral Osteoarthritis of right knee Pain syndrome, chronic Paroxysmal SVT (supraventricular tachycardia) Spondylosis of lumbar region without myelopathy or radiculopathy SVT (supraventricular tachycardia) Urgency of micturition Family History Mother Diabetes Kidney failure Father AAA (abdominal aortic aneurysm, ruptured) Family/Other Mental health disorder Substance use disorder Pertinent family history: As mentioned above Surgical History Deficient knowledge of leg surgery History of appendectomy History of left knee surgery History of myomectomy History of rotator cuff surgery History of surgery on left wrist Hx of hysterectomy Social History Housing: House Are you a primary career representative to a significant other at home: No Do you presently have visiting nurse or other home services: Yes (Meals on Wheels) Alcohol intake: current Alcohol intake frequency: holidays/special occasions only Patient Tobacco Use Status: Never used Tobacco e-Cigarette/Vaping Use: Never Used Second Hand Smoke Exposure: No Use of substances other than those prescribed or required for medical reasons: No Advance Directives: No Advance Directives Information Provided: No service: No Current occupational status: retired and disabled Cognitive needs: Yes (walker) Hearing needs: No Vision needs: No Meds Allergies Allergy/AdvReac Type Severity Reaction Status Date / Time prochlorperazine [Compazine] Allergy Severe Dystonic Verified 05/09/21 15:00 Reaction cobalt [COBALT] Allergy Intermediate RASH Verified 05/09/21 15:00 hydrocodone [Vicodin] Allergy Intermediate Nausea and Verified 05/09/21 15:00 Vomiting nickel [NICKEL] Allergy Intermediate RASH Verified 05/09/21 15:00 ondansetron [Zofran] Allergy Intermediate Hives Verified 05/09/21 15:00 morphine AdvReac Intermediate Nausea and Verified 05/09/21 15:00 Vomiting Active Medications: Current Medications Acetaminophen (Acetaminophen 325 Mg Tablet) 650 mg PO Q6H PRN PRN Reason: Pain, Mild (Pain Scale 1-3) Albuterol Sulfate (Albuterol Sulfate 90 Mcg 8 Gm Inhaler) 2 puff INHALE RQ4H PRN PRN Reason: Shortness of Breath/Wheezing Enoxaparin Sodium (Enoxaparin Sodium 40 Mg/0.4 Ml Syringe) 40 mg SUBCUT Q24H [facility] Ceftriaxone Sodium 1 gm/ (Sodium Chloride) 50 mls @ 100 mls/hr IV ONCE ONE Stop: 05/15/21 23:06 Azithromycin 500 mg/ Sodium (Chloride) 250 mls @ 125 mls/hr IV ONCE ONE Stop: 05/16/21 00:36 Ceftriaxone Sodium 1 gm/ (Sodium Chloride) 50 mls @ 100 mls/hr IV Q24H [facility] Melatonin (Melatonin 3 Mg Tablet) 6 mg PO BEDTIME PRN PRN Reason: Insomnia Senna (Sennosides 8.6 Mg Tablet) 17.2 mg PO BEDTIME PRN PRN Reason: Constipation Sodium Chloride (0.9 % Sodium Chloride Flush 3 Ml Syringe) 3 ml IVFLUSH QSHIFT [facility] Home Medications Medication Instructions Recorded Confirmed Last Taken Type ergocalciferol (vitamin D2) 1,250 1,250 mcg PO QWEEK 06/05/20 05/09/21 Unknown History mcg (50,000 unit) capsule lorazepam 0.5 mg tablet 0.5 mg PO BID PRN 06/05/20 05/09/21 10/27/20 05:30 History oxcarbazepine 300 mg tablet 300 mg PO BID 06/05/20 05/09/21 02/16/21 History zolpidem 10 mg tablet 10 mg PO BEDTIME PRN 06/05/20 05/09/21 Unknown History quetiapine 50 mg tablet 50 mg PO BEDTIME 08/08/20 05/09/21 Unknown History solifenacin 10 mg tablet 10 mg PO DAILY 01/09/21 05/09/21 Unknown History sertraline 50 mg tablet 75 mg PO BID tab 05/09/21 05/09/21 Unknown History Physical Exam Vital Signs and Narrative: Vital Signs: Last Vital Signs Temp 101.8 F H 05/15/21 22:27 Pulse 95 05/15/21 22:27 Resp 16 05/15/21 22:27 BP 147/85 H 05/15/21 22:27 Pulse Ox 95 05/15/21 22:27 Body Mass Index 38.3 Gen: Appears be in no acute distress HEENT: NCAT, Moist mucosa. Pulmonary: Coarse breath sounds, fair air entry CVS: Normal S1-S2 Abdomen: BS+, Soft, Nontender Extremities: Warm well perfused Neuro: Alert and awake. Results Labs CBC and Chem 7: 05/15/21 21:25 05/15/21 21:25 Labs: Laboratory Results - last 24 hr 05/15/21 05/15/21 05/15/21 21:25 21:25 21:25 MCV 85.7 MCH 30.2 MCHC 35.3 H RDW 12.9 Plt Count 98 L D MPV 9.9 Immature Gran % (Auto) 1.0 H Neut % (Auto) 69.8 Lymph % (Auto) 20.3 [place]eadle % (Auto) 8.4 Eos % (Auto) 0.5 Baso % (Auto) 0.0 Lymph # (Auto) 0.9 L [place] # (Auto) 0.4 Eos # (Auto) 0.0 Baso # (Auto) 0.0 Abs Immat Gran (auto) 0.04 H Absolute Neuts (auto) 2.9 Absolute Nucleated RBC 0.000 Nucleated RBC % (auto) 0.0 Smear Tech's Comments VERIFIED Anion Gap 13 Estim Creat Clear Calc 51.8 Estimated GFR 44 Random Glucose 118 H Lactic Acid 1.2 Calcium 7.6 L D Total Bilirubin 0.5 AST 43 H D ALT 42 H Alkaline Phosphatase 64 D Troponin I High Sens Total Protein 6.0 L Albumin 3.7 Influenza Type A (PCR) Influenza Type B (PCR) RSV RNA Qual (PCR) SARS-CoV-2 RNA (RT-PCR) 05/15/21 05/15/21 21:25 21:27 MCV MCH MCHC RDW Plt Count MPV Immature Gran % (Auto) Neut % (Auto) Lymph % (Auto) Beadle % (Auto) Eos % (Auto) Baso % (Auto) Lymph # (Auto) [place]le # (Auto) Eos # (Auto) Baso # (Auto) Abs Immat Gran (auto) Absolute Neuts (auto) Absolute Nucleated RBC Nucleated RBC % (auto) Smear Tech's Comments Anion Gap Estim Creat Clear Calc Estimated GFR Random Glucose Lactic Acid Calcium Total Bilirubin AST ALT Alkaline Phosphatase Troponin I High Sens 12.1 Total Protein Albumin Influenza Type A (PCR) NEGATIVE Influenza Type B (PCR) NEGATIVE RSV RNA Qual (PCR) NEGATIVE SARS-CoV-2 RNA (RT-PCR) POSITIVE A Imaging Radiologist's Impressions: Impressions Chest X-Ray 05/15/21 21:39 IMPRESSION: Multifocal patchy airspace opacity. This is consistent with clinical history of Covid 19 positive. Assessment and Plan (1) COVID-19: Status: Acute (2) Pneumonia: Status: Acute 65-year-old female with a past medical history of hypertension, hyperlipidemia, anxiety, depression, osteoarthritis, multiple sclerosis, chronic pain syndrome, history of paroxysmal SVT, GERD, history of dysphagia, COVID-19 positive about a week ago presented to the hospital with a chief complaint of shortness of breath/cough/generalized weakness/dyspnea on exertion. Noted to have COVID-19 pneumonia. Admitted for further management. COVID-19 pneumonia: Continue ceftriaxone azithromycin. Supplemental oxygen p.r.n.. Albuterol inhaler p.r.n.. Id consult. Dexamethasone 6 mg daily. Will also obtain CT chest with PE protocol to rule out VTE. For all other chronic conditions, home medications will be continued once med rec is done. DVT prophylaxis: Lovenox Code status: Full code Quality Stroke Does the patient have a stroke diagnosis?: No VTE Prior VTE?: No VTE Risk Level:: Medical - moderate - high VTE Device Contraindication: Treatment Not Indicated VTE Drug Contraindication: N/A - Med Ordered
[2021-05-15] MEDS: cefTRIAXone sodium 1 GM in 0.9 % Sodium Chloride 50 ML IV (23:04)
[2021-05-15] MEDS: Enoxaparin Sodium 40 MG/0.4 ML SYRINGE SUBCUT (23:04)
[2021-05-15 23:24] VITALS: TEMP 38.6
[2021-05-15] MEDS: 0.9 % Sodium Chloride Flush 3 ML SYRINGE IVFLUSH (23:26)
[2021-05-16] VITALS (11 sets, daily range): BP systolic 98–144; BP diastolic 55–83; PULSE 66–96; RESP 16–21; TEMP 36.1–37.4; O2SAT 95–98
[2021-05-16] MEDS: Azithromycin 500 MG in 0.9 % Sodium Chloride 250 ML 125 MG IV (00:11)
--- NOTE | 2021-05-16 00:17 | PC.NURSE ---
SPO2 FOUND TO BE 93% ON RA WHILE RESTING ON BACK- 2L O2 VIA NC APPLIED. SPO2 INCREASED TO 96%. SINUS TACH ON CAGER OPERATOR. COUGH REMAINS IMPROVED. SPEAKING IN FULL CLEAR SENTENCES. ADMITTED FOR COVID PNA, AWAITING BED ASSIGNMENT FOR ADMISSION.
[2021-05-16] MEDS: iohexoL 350 MG/ML 100 ML INFUS..BTL 65 ML IV (00:53)
--- NOTE | 2021-05-16 04:14 | PC.NURSE ---
pt assisted w bedpan, linens changed. purewick placed for ease w toileting. pt requesting morphine for breakthrough pain, has not had regularly scheduled pain medication, per pt. provider aware.
[2021-05-16] MEDS: ondansetron HCL 4 MG/2 ML VIAL IVPUSH ×2 (04:53→07:48)
[2021-05-16] MEDS: Morphine Sulfate 2 MG/ML CARTRIDGE 1 MG IVPUSH (04:53)
--- NOTE | 2021-05-16 04:56 | PC.NURSE ---
telephone order for one time dose pain medication confirmed w hospitalist as well as prn zofran for nausea. pt medicated per emar.
[2021-05-16 07:08] LABS: MANUAL DIFF FLAG NO
[2021-05-16 07:22] LABS: Basophils Percent Auto 0.3 % (0-2); Eosinophils Percent Auto 0.3 % (0-4); Hematocrit 30.1 % (37.0-47.0); Hemoglobin 10.4 g/dl (12.0-16.0); Imm Gran Abs Auto 0.04 X10*3/uL (0.00-0.03); Imm Gran Pct Auto 1.1 % (0.0-0.4); Lymphocytes Absolute Auto 1.3 X10*3/uL (1.2-4.9); Lymphocytes Percent Auto 36.1 % (20-40); Mean Corpuscular HGB Conc 34.6 g/dl (31.0-35.0); Mean Corpuscular Hemoglobin 29.6 pg (27.0-33.0); Mean Corpuscular Volume 85.8 fL (80.0-98.0); Mean Platelet Volume 10.2 fL (9.4-12.3); Monocytes Absolute Auto 0.5 X10*3/uL (0.1-1.2); Monocytes Percent Auto 12.9 % (2-11); Neutrophils Absolute Auto 1.8 x10*3/uL (2.0-8.3); Neutrophils Percent Auto 49.3 % (45-73); Red Blood Count 3.51 X10*6/uL (4.20-5.50); Red Cell Distribution Width 13.2 % (11.0-16.0); White Blood Count 3.6 X10*3/uL (4.8-10.8)
[2021-05-16 07:24] LABS: Platelet Count 93 X10*3/uL (160-400)
[2021-05-16 07:44] LABS: Anion Gap 15 (12-20); Blood Urea Nitrogen 13 mg/dL (9-16); Carbon Dioxide 16 mmol/L (22-29); Chloride 107 mmol/L (96-108); Creatinine Clr Calc Pharmacy 62.6; Estimated Glomerular Filt Rate 55; Glucose Random 99 mg/dL (60-115); Potassium 3.6 mmol/L (3.3-5.1); Sodium 134 mmol/L (135-145)
[2021-05-16] MEDS: dexAMETHasone sod phosphate 4 MG/ML VIAL 6 MG IVPUSH (07:48)
[2021-05-16 07:50] LABS: Calcium 7.4 mg/dL (8.4-10.2)
--- NOTE | 2021-05-16 08:12 | PHA.MEDREC ---
Pharmacy Consult ? Medication Reconciliation Pharmacy has reviewed the medication reconciliation complete overnight. There are no remarkable issues for provider's attention. Rosa Rice, FelipeD
[2021-05-16] MEDS: Cyclobenzaprine HCl 10 MG TABLET PO ×3 (08:51→21:55)
[2021-05-16] MEDS: Omeprazole 20 MG CAPSULE.DR PO ×2 (08:52→21:56)
[2021-05-16] MEDS: dilTIAZem HCL CD 120 MG CAP.ER.DEG PO (08:52)
[2021-05-16] MEDS: OXcarbazepine 300 MG TABLET PO ×2 (08:52→21:55)
[2021-05-16] MEDS: carvediloL 25 MG TABLET PO (08:53)
[2021-05-16] MEDS: Sertraline HCL 25 MG TABLET 75 MG PO ×2 (08:53→21:55)
[2021-05-16] MEDS: LORazepam 0.5 MG TABLET PO ×2 (08:58→22:01)
[2021-05-16] MEDS: 0.9 % Sodium Chloride Flush 3 ML SYRINGE IVFLUSH ×3 (08:59→21:57)
[2021-05-16] MEDS: Tolterodine Tartrate LA 4 MG CAP.ER.24H PO (09:26)
[2021-05-16] MEDS: oxyCODONE HCl Immed Release 5 MG TABLET PO ×2 (09:27→21:56)
--- NOTE | 2021-05-16 10:18 | MHC.CM.PN ---
Met with patient in regards to discharge planning. Patient tested positive for Covid on 05/08. Patient was trying to quarantine at home but came to the hospital due to worsening shortness of breath. Patient lives alone, ambulates with a walker and had no services prior to coming to the hospital. Patient is currently on oxygen but not at baseline. Patient's grand-nephew lives on the 2nd floor. Patient has been to [facility] and [facility] for short term rehab in the past. Patient does not feel short term rehab will be necessary. Patient appears quite weak. Physical therapy eval for home safety will be needed. IMM explained. Patient unable to sign due to shortness of breath. PCP verified. HCP verified to be on file. Continue to monitor for d/c needs.
--- NOTE | 2021-05-16 12:09 | PC.NURSE ---
patient a&ox3, vss, patient on 2L O2 nc, c/o rt flank pain, pt sipping on gingerale, pinner printed circuit boards nsr 70s, will continue to monitor.
--- NOTE | 2021-05-16 14:39 | PC.NURSE ---
patient a&o, monitor worker nsr, vss, pt c/o rt flank pain and asking for medication for diarrhea, notified dr. bob of pt request-awaiting orders, pt watching tv at this time, will continue to monitor.
[2021-05-16] MEDS: Ibuprofen 400 MG TABLET PO (15:30)
--- NOTE | 2021-05-16 15:39 | PC.NURSE ---
patient a&o, court recording monitor nsr, patient medicated per order, pt requested to call her nephew and for him to bring her glasses and cell phone/process validation engineer, this nurse was able to get ahold of shelly her nephew at [phone] and he is agreeable to bring items for the patient, will notify the patient and continue to monitor.
--- NOTE | 2021-05-16 17:00 | HO.PM.IMPN ---
Subjective Subjective Date of Service: 05/16/21 Interval History: No acute events overnight; remain short of breath but able to speak in full sentences lying supine Review of Systems Denies chest pain Denies shortness of breath Denies nausea vomiting diarrhea Physical Exam Vital Signs: Vital Signs: Last Vital Signs Temp 99.1 F 05/16/21 13:01 Pulse 70 05/16/21 14:31 Resp 20 05/16/21 14:31 BP 114/67 05/16/21 14:31 Pulse Ox 96 05/16/21 14:31 Oxygen Flow Rate 2 05/16/21 02:52 Body Mass Index 38.3 Const: Other: Awake alert oriented x3 no acute distress Resp: Other: Faint crackles bilateral bases but otherwise clear to auscultation Cardio: Other: No S4; S1-S2; no S3 murmurs rubs or gallops GI: Other: Soft nontender nondistended with normoactive bowel sounds Extrem: Other: No edema bilaterally Objective Data Active Medications Acetaminophen (Acetaminophen 325 Mg Tablet) 650 mg PO Q6H PRN PRN Reason: Pain, Mild (Pain Scale 1-3) Albuterol Sulfate (Albuterol Sulfate 90 Mcg 8 Gm Inhaler) 2 puff INHALE RQ4H PRN PRN Reason: Shortness of Breath/Wheezing Carvedilol (Carvedilol 25 Mg Tablet) 25 mg PO DAILY [facility]; Protocol Last Admin: 05/16/21 08:53 Dose: 25 mg Documented by: JOSIE Cyclobenzaprine HCl (Cyclobenzaprine Hcl 10 Mg Tablet) 10 mg PO TID [facility] Last Admin: 05/16/21 15:30 Dose: 10 mg Documented by: JEFFREY Dexamethasone Sodium Phosphate (Dexamethasone Sod Phosphate 4 Mg/Ml Vial) 6 mg IVPUSH DAILY [facility] Last Admin: 05/16/21 07:48 Dose: 6 mg Documented by: JOSIE Diltiazem HCl (Diltiazem Hcl Cd 120 Mg Cap.Er.Deg) 120 mg PO DAILY [facility]; Protocol Last Admin: 05/16/21 08:52 Dose: 120 mg Documented by: JOSIE Enoxaparin Sodium (Enoxaparin Sodium 40 Mg/0.4 Ml Syringe) 40 mg SUBCUT Q24H [facility] Last Admin: 05/15/21 23:04 Dose: 40 mg Documented by: LEVY Ergocalciferol (Ergocalciferol (Vitamin D2) 1,250 Mcg Capsule) 1,250 mcg PO Suarez [facility] Ceftriaxone Sodium 1 gm/ (Sodium Chloride) 50 mls @ 100 mls/hr IV Q24H [facility] Azithromycin 500 mg/ Sodium (Chloride) 250 mls @ 125 mls/hr IV Q24H [facility] Ibuprofen (Ibuprofen 400 Mg Tablet) 400 mg PO TID PRN PRN Reason: fever or pain Last Admin: 05/16/21 15:30 Dose: 400 mg Documented by: JEFFREY Lorazepam (Lorazepam 0.5 Mg Tablet) 0.5 mg PO BID PRN PRN Reason: Anxiety Last Admin: 05/16/21 08:58 Dose: 0.5 mg Documented by: JOSIE Melatonin (Melatonin 3 Mg Tablet) 6 mg PO BEDTIME PRN PRN Reason: Insomnia Omeprazole (Omeprazole 20 Mg Capsule.Dr) 20 mg PO BID [facility] Last Admin: 05/16/21 08:52 Dose: 20 mg Documented by: JOSIE Ondansetron HCl (Ondansetron Hcl 4 Mg/2 Ml Vial) 4 mg IVPUSH Q6H PRN PRN Reason: Nausea Last Admin: 05/16/21 07:48 Dose: 4 mg Documented by: JOSIE Oxcarbazepine (Oxcarbazepine 300 Mg Tablet) 300 mg PO BID [facility] Last Admin: 05/16/21 08:52 Dose: 300 mg Documented by: JOSIE Oxycodone HCl (Oxycodone Hcl Immed Release 5 Mg Tablet) 5 mg PO BID [facility] Last Admin: 05/16/21 09:27 Dose: 5 mg Documented by: JOSIE Quetiapine Fumarate (Quetiapine Fumarate 50 Mg Tablet) 50 mg PO BEDTIME [facility] Senna (Sennosides 8.6 Mg Tablet) 17.2 mg PO BEDTIME PRN PRN Reason: Constipation Sertraline HCl (Sertraline Hcl 25 Mg Tablet) 75 mg PO BID [facility] Last Admin: 05/16/21 08:53 Dose: 75 mg Documented by: JOSIE Sodium Chloride (0.9 % Sodium Chloride Flush 3 Ml Syringe) 3 ml IVFLUSH QSHIFT [facility] Last Admin: 05/16/21 15:43 Dose: 3 ml Documented by: HO.THOMSOC Tolterodine Tartrate (Tolterodine Tartrate La 4 Mg Cap.Er.24h) 4 mg PO DAILY [facility] Last Admin: 05/16/21 09:26 Dose: 4 mg Documented by: JOSIE Labs CBC & Chem 7: 05/16/21 06:51 05/16/21 06:51 Labs: Laboratory Results - last 24 hr 05/15/21 05/15/21 05/15/21 21:25 21:25 21:25 MCV 85.7 MCH 30.2 MCHC 35.3 H RDW 12.9 Plt Count 98 L D MPV 9.9 Immature Gran % (Auto) 1.0 H Neut % (Auto) 69.8 Lymph % (Auto) 20.3 [place] % (Auto) 8.4 Eos % (Auto) 0.5 Baso % (Auto) 0.0 Lymph # (Auto) 0.9 L [place] # (Auto) 0.4 Eos # (Auto) 0.0 Baso # (Auto) 0.0 Abs Immat Gran (auto) 0.04 H Absolute Neuts (auto) 2.9 Absolute Nucleated RBC 0.000 Nucleated RBC % (auto) 0.0 Smear Tech's Comments VERIFIED Anion Gap 13 Estim Creat Clear Calc 51.8 Estimated GFR 44 Random Glucose 118 H Lactic Acid 1.2 Calcium 7.6 L D Total Bilirubin 0.5 AST 43 H D ALT 42 H Alkaline Phosphatase 64 D Troponin I High Sens Total Protein 6.0 L Albumin 3.7 Influenza Type A (PCR) Influenza Type B (PCR) RSV RNA Qual (PCR) SARS-CoV-2 RNA (RT-PCR) 05/15/21 05/15/21 05/16/21 21:25 21:27 06:51 MCV 85.8 MCH 29.6 MCHC 34.6 RDW 13.2 Plt Count 93 L MPV 10.2 Immature Gran % (Auto) 1.1 H Neut % (Auto) 49.3 Lymph % (Auto) 36.1 [place] % (Auto) 12.9 H Eos % (Auto) 0.3 Baso % (Auto) 0.3 Lymph # (Auto) 1.3 [place] # (Auto) 0.5 Eos # (Auto) 0.0 Baso # (Auto) 0.0 Abs Immat Gran (auto) 0.04 H Absolute Neuts (auto) 1.8 L Absolute Nucleated RBC 0.000 Nucleated RBC % (auto) 0.0 Smear Tech's Comments Anion Gap Estim Creat Clear Calc Estimated GFR Random Glucose Lactic Acid Calcium Total Bilirubin AST ALT Alkaline Phosphatase Troponin I High Sens 12.1 Total Protein Albumin Influenza Type A (PCR) NEGATIVE Influenza Type B (PCR) NEGATIVE RSV RNA Qual (PCR) NEGATIVE SARS-CoV-2 RNA (RT-PCR) POSITIVE A 05/16/21 06:51 MCV MCH MCHC RDW Plt Count MPV Immature Gran % (Auto) Neut % (Auto) Lymph % (Auto) [place] % (Auto) Eos % (Auto) Baso % (Auto) Lymph # (Auto) [place] # (Auto) Eos # (Auto) Baso # (Auto) Abs Immat Gran (auto) Absolute Neuts (auto) Absolute Nucleated RBC Nucleated RBC % (auto) Smear Tech's Comments Anion Gap 15 Estim Creat Clear Calc 62.6 Estimated GFR 55 Random Glucose 99 Lactic Acid Calcium 7.4 L Total Bilirubin AST ALT Alkaline Phosphatase Troponin I High Sens Total Protein Albumin Influenza Type A (PCR) Influenza Type B (PCR) RSV RNA Qual (PCR) SARS-CoV-2 RNA (RT-PCR) Assessment and Plan (1) COVID-19: Status: Acute (2) Pneumonia: Status: Acute Assessment and Plan: 65-year-old female with a past medical history of hypertension, hyperlipidemia, anxiety, depression, osteoarthritis, multiple sclerosis, chronic pain syndrome, history of paroxysmal SVT, GERD, history of dysphagia, COVID-19 positive about a week ago presented to the hospital with a chief complaint of shortness of breath/cough/generalized weakness/dyspnea on exertion. Noted to have COVID-19 pneumonia. 1.COVID-19 pneumonia Continue IV ceftriaxone/azithromycin. IV Decadron 6 mg daily. Will add Pepcid 20 mg b.i.d. ID consult pending 2.HTN Continue Coreg/diltiazem 3. Depression Continue Trileptal Seroquel and Zoloft as ordered DVT prophylaxis: Lovenox Code status: Full code Quality Stroke Does the patient have a stroke diagnosis?: No VTE Prior VTE?: No VTE Risk Level:: Medical - moderate - high VTE Device Contraindication: Treatment Not Indicated VTE Drug Contraindication: N/A - Med Ordered
--- NOTE | 2021-05-16 18:46 | PC.NURSE ---
called floor to give report, floor to call us back
--- NOTE | 2021-05-16 21:49 | W.PM.IDCN ---
History of Present Illness Data of Consult Service Date: 05/16/21 Requesting physician: John Knott Primary Care Provider: MD KALYANI Wylie Reason for consult: shortness of breath She presents with shortness of breath for 10 days. She had COVID diagnosis last week confirmed She has some shortness of breath. She did not receive monoclonal antibodies. Review of Systems Review of Systems: Yes all other systems are reviewed and are negative [facility] Past Medical History Medical History Anxiety Arthritis Depression Disc degeneration, lumbar Essential hypertension GERD (gastroesophageal reflux disease) History of confusion History of dysphagia History of kidney problems Hypertension Memory difficulties Multiple sclerosis Osteoarthritis of knees, bilateral Osteoarthritis of right knee Pain syndrome, chronic Paroxysmal SVT (supraventricular tachycardia) Spondylosis of lumbar region without myelopathy or radiculopathy SVT (supraventricular tachycardia) Urgency of micturition Family History Family History Mother Diabetes Kidney failure Father AAA (abdominal aortic aneurysm, ruptured) Family/Other Mental health disorder Substance use disorder Family history: reviewed and not pertinent Surgical History Surgical History Deficient knowledge of leg surgery History of appendectomy History of left knee surgery History of myomectomy History of rotator cuff surgery History of surgery on left wrist Hx of hysterectomy Social History Social History Housing: House Are you a primary health care manager to a significant other at home: No Do you presently have visiting nurse or other home services: Yes (Meals on Wheels) Alcohol intake: current Alcohol intake frequency: holidays/special occasions only Patient Tobacco Use Status: Never used Tobacco e-Cigarette/Vaping Use: Never Used Second Hand Smoke Exposure: No service: No Current occupational status: retired and disabled Cognitive needs: Yes (walker) Hearing needs: No Vision needs: No Meds Allergies Allergy/AdvReac Type Severity Reaction Status Date / Time prochlorperazine [Compazine] Allergy Severe Dystonic Verified 05/09/21 15:00 Reaction cobalt [COBALT] Allergy Intermediate RASH Verified 05/09/21 15:00 hydrocodone [Vicodin] Allergy Intermediate Nausea and Verified 05/09/21 15:00 Vomiting nickel [NICKEL] Allergy Intermediate RASH Verified 05/09/21 15:00 ondansetron [Zofran] Allergy Intermediate Hives Verified 05/09/21 15:00 morphine AdvReac Intermediate Nausea and Verified 05/09/21 15:00 Vomiting Active Medications: Current Medications Acetaminophen (Acetaminophen 325 Mg Tablet) 650 mg PO Q6H PRN PRN Reason: Pain, Mild (Pain Scale 1-3) Albuterol Sulfate (Albuterol Sulfate 90 Mcg 8 Gm Inhaler) 2 puff INHALE RQ4H PRN PRN Reason: Shortness of Breath/Wheezing Carvedilol (Carvedilol 25 Mg Tablet) 25 mg PO DAILY [facility]; Protocol Last Admin: 05/16/21 08:53 Dose: 25 mg Documented by: Cyclobenzaprine HCl (Cyclobenzaprine Hcl 10 Mg Tablet) 10 mg PO TID [facility] Last Admin: 05/16/21 15:30 Dose: 10 mg Documented by: Dexamethasone Sodium Phosphate (Dexamethasone Sod Phosphate 4 Mg/Ml Vial) 6 mg IVPUSH DAILY [facility] Last Admin: 05/16/21 07:48 Dose: 6 mg Documented by: Diltiazem HCl (Diltiazem Hcl Cd 120 Mg Cap.Er.Deg) 120 mg PO DAILY [facility]; Protocol Last Admin: 05/16/21 08:52 Dose: 120 mg Documented by: Enoxaparin Sodium (Enoxaparin Sodium 40 Mg/0.4 Ml Syringe) 40 mg SUBCUT Q24H [facility] Last Admin: 05/15/21 23:04 Dose: 40 mg Documented by: Ergocalciferol (Ergocalciferol (Vitamin D2) 1,250 Mcg Capsule) 1,250 mcg PO [facility] Ibuprofen (Ibuprofen 400 Mg Tablet) 400 mg PO TID PRN PRN Reason: fever or pain Last Admin: 05/16/21 15:30 Dose: 400 mg Documented by: Lorazepam (Lorazepam 0.5 Mg Tablet) 0.5 mg PO BID PRN PRN Reason: Anxiety Last Admin: 05/16/21 08:58 Dose: 0.5 mg Documented by: Melatonin (Melatonin 3 Mg Tablet) 6 mg PO BEDTIME PRN PRN Reason: Insomnia Omeprazole (Omeprazole 20 Mg Capsule.Dr) 20 mg PO BID [facility] Last Admin: 05/16/21 08:52 Dose: 20 mg Documented by: Ondansetron HCl (Ondansetron Hcl 4 Mg/2 Ml Vial) 4 mg IVPUSH Q6H PRN PRN Reason: Nausea Last Admin: 05/16/21 07:48 Dose: 4 mg Documented by: Oxcarbazepine (Oxcarbazepine 300 Mg Tablet) 300 mg PO BID [facility] Last Admin: 05/16/21 08:52 Dose: 300 mg Documented by: Oxycodone HCl (Oxycodone Hcl Immed Release 5 Mg Tablet) 5 mg PO BID [facility] Last Admin: 05/16/21 09:27 Dose: 5 mg Documented by: Quetiapine Fumarate (Quetiapine Fumarate 50 Mg Tablet) 50 mg PO BEDTIME [facility] Senna (Sennosides 8.6 Mg Tablet) 17.2 mg PO BEDTIME PRN PRN Reason: Constipation Sertraline HCl (Sertraline Hcl 25 Mg Tablet) 75 mg PO BID [facility] Last Admin: 05/16/21 08:53 Dose: 75 mg Documented by: Sodium Chloride (0.9 % Sodium Chloride Flush 3 Ml Syringe) 3 ml IVFLUSH QSHIFT [facility] Last Admin: 05/16/21 15:43 Dose: 3 ml Documented by: Tolterodine Tartrate (Tolterodine Tartrate La 4 Mg Cap.Er.24h) 4 mg PO DAILY [facility] Last Admin: 05/16/21 09:26 Dose: 4 mg Documented by: Home Medications Medication Instructions Recorded Confirmed Last Taken Type ergocalciferol (vitamin D2) 1,250 1,250 mcg PO QWEEK 06/05/20 05/16/21 Unknown History mcg (50,000 unit) capsule lorazepam 0.5 mg tablet 0.5 mg PO BID PRN 06/05/20 05/16/21 10/27/20 05:30 History oxcarbazepine 300 mg tablet 300 mg PO BID 06/05/20 05/16/21 02/16/21 History zolpidem 10 mg tablet 10 mg PO BEDTIME PRN 06/05/20 05/16/21 Unknown History quetiapine 50 mg tablet 50 mg PO BEDTIME 08/08/20 05/16/21 Unknown History solifenacin 10 mg tablet 10 mg PO DAILY 01/09/21 05/16/21 Unknown History sertraline 50 mg tablet 75 mg PO BID tab 05/09/21 05/16/21 Unknown History Physical Exam Vital Signs: Vital Signs: Last Vital Signs Temp 97.9 F 05/16/21 21:18 Pulse 66 05/16/21 21:18 Resp 20 05/16/21 21:18 BP 117/62 05/16/21 21:18 Pulse Ox 98 05/16/21 21:18 Oxygen Flow Rate 2 05/16/21 02:52 Body Mass Index 38.3 Const: General: cooperative Eyes: General: appearance normal, both eyes and all related structures Resp: Effort & Inspection: normal respiratory effort Cardio: Rate: regular rate Rhythm: regular rhythm GI: Palpation (GI): Soft to palpation and nontender Results Labs CBC & Chem 7: 05/16/21 06:51 05/16/21 06:51 Labs: Short CBC 05/15/21 05/16/21 Range/Units 21:25 06:51 WBC 4.2 L 3.6 L (4.8-10.8) X10*3/uL Hgb 11.6 L 10.4 L (12.0-16.0) g/dl Hct 32.9 L 30.1 L (37.0-47.0) % Plt Count 98 L D 93 L (160-400) X10*3/uL BMP 05/15/21 05/16/21 21:25 06:51 Sodium 131 L 134 L Potassium 3.5 3.6 Chloride 103 107 Carbon Dioxide 19 L 16 L BUN 15 13 Creatinine 1.22 1.01 Calcium 7.6 L D 7.4 L Liver Function 05/15/21 Range/Units 21:25 Total Bilirubin 0.5 (0.0-1.0) mg/dL AST 43 H D (5-31) U/L ALT 42 H (0-31) U/L Alkaline Phosphatase 64 D (39-117) U/L Albumin 3.7 (3.5-5.0) g/dL Assessment and Plan (1) Pneumonia: Status: Acute (2) COVID-19: Status: Acute She has had COVID 10 days She has symptoms worsening She has no signs of bacterial infection Would stop antibiotics no bacterial infection Would continue Dexamethasone Continue oxygen No Remdesivir
[2021-05-16] MEDS: QUEtiapine Fumarate 50 MG TABLET PO (21:56)
[2021-05-16] MEDS: Enoxaparin Sodium 40 MG/0.4 ML SYRINGE SUBCUT (21:57)
[2021-05-17] VITALS (8 sets, daily range): BP systolic 98–128; BP diastolic 59–83; PULSE 66–96; RESP 18–20; TEMP 36.1–37.2; O2SAT 91–96
[2021-05-17 07:47] LABS: Hemoglobin 11.3 g/dl (12.0-16.0); MANUAL DIFF FLAG SCAN; PLT CLUMP 1; SCAN SMEAR FLAG 1
[2021-05-17 07:48] LABS: Basophils Percent Auto 0.3 % (0-2); Eosinophils Percent Auto 0.3 % (0-4); Hematocrit 33.3 % (37.0-47.0); Imm Gran Abs Auto 0.07 X10*3/uL (0.00-0.03); Lymphocytes Absolute Auto 0.8 X10*3/uL (1.2-4.9); Lymphocytes Percent Auto 22.1 % (20-40); Mean Corpuscular HGB Conc 33.9 g/dl (31.0-35.0); Mean Corpuscular Hemoglobin 29.3 pg (27.0-33.0); Mean Corpuscular Volume 86.3 fL (80.0-98.0); Mean Platelet Volume 10.2 fL (9.4-12.3); Monocytes Absolute Auto 0.4 X10*3/uL (0.1-1.2); Monocytes Percent Auto 11.9 % (2-11); Neutrophils Absolute Auto 2.2 x10*3/uL (2.0-8.3); Neutrophils Percent Auto 63.4 % (45-73); Platelet Count 125 X10*3/uL (160-400); Red Blood Count 3.86 X10*6/uL (4.20-5.50); White Blood Count 3.5 X10*3/uL (4.8-10.8)
[2021-05-17 08:04] LABS: Alanine Aminotransferase 39 U/L (0-31); Albumin Level 3.6 g/dL (3.5-5.0); Alkaline Phosphatase 57 U/L (39-117); Anion Gap 15 (12-20); Aspartate Amino Transferase 41 U/L (5-31); Bilirubin Total 0.2 mg/dL (0.0-1.0); Blood Urea Nitrogen 18 mg/dL (9-16); Calcium 7.8 mg/dL (8.4-10.2); Carbon Dioxide 20 mmol/L (22-29); Chloride 106 mmol/L (96-108); Creatinine Clr Calc Pharmacy 52.2; Estimated Glomerular Filt Rate 44; Glucose Fasting 100 mg/dL (60-99); Potassium 3.7 mmol/L (3.3-5.1); Sodium 137 mmol/L (135-145)
[2021-05-17] MEDS: Sertraline HCL 25 MG TABLET 75 MG PO ×2 (10:38→20:40)
[2021-05-17] MEDS: oxyCODONE HCl Immed Release 5 MG TABLET PO ×2 (10:39→20:40)
[2021-05-17] MEDS: LORazepam 0.5 MG TABLET PO ×2 (10:39→20:47)
[2021-05-17] MEDS: 0.9 % Sodium Chloride Flush 3 ML SYRINGE IVFLUSH ×3 (10:40→20:41)
[2021-05-17] MEDS: dilTIAZem HCL CD 120 MG CAP.ER.DEG PO (10:43)
[2021-05-17] MEDS: Cyclobenzaprine HCl 10 MG TABLET PO ×3 (10:43→20:39)
[2021-05-17] MEDS: Tolterodine Tartrate LA 4 MG CAP.ER.24H PO (10:43)
[2021-05-17] MEDS: Omeprazole 20 MG CAPSULE.DR PO ×2 (10:43→20:39)
[2021-05-17] MEDS: OXcarbazepine 300 MG TABLET PO ×2 (10:44→20:39)
[2021-05-17] MEDS: carvediloL 25 MG TABLET PO (10:44)
[2021-05-17] MEDS: dexAMETHasone sod phosphate 4 MG/ML VIAL 6 MG IVPUSH (10:44)
--- NOTE | 2021-05-17 13:17 | HO.PM.IMPN ---
Subjective Subjective Date of Service: 05/17/21 Interval History: Respiratory status improved overnight; less anxious Review of Systems Denies chest pain Denies shortness of breath Denies nausea vomiting diarrhea Physical Exam Vital Signs: Vital Signs: Last Vital Signs Temp 98.8 F 05/17/21 11:37 Pulse 67 05/17/21 11:37 Resp 18 05/17/21 11:37 BP 111/64 05/17/21 11:37 Pulse Ox 95 05/17/21 11:37 Oxygen Flow Rate 2 05/16/21 02:52 Body Mass Index 38.3 Const: Other: Awake alert oriented x3 no acute distress Resp: Other: Faint crackles bilateral bases but otherwise clear to auscultation Cardio: Other: No S4; S1-S2; no S3 murmurs rubs or gallops GI: Other: Soft nontender nondistended with normoactive bowel sounds Extrem: Other: No edema bilaterally Objective Data Active Medications Acetaminophen (Acetaminophen 325 Mg Tablet) 650 mg PO Q6H PRN PRN Reason: Pain, Mild (Pain Scale 1-3) Albuterol Sulfate (Albuterol Sulfate 90 Mcg 8 Gm Inhaler) 2 puff INHALE RQ4H PRN PRN Reason: Shortness of Breath/Wheezing Carvedilol (Carvedilol 25 Mg Tablet) 25 mg PO DAILY [facility]; Protocol Last Admin: 05/17/21 10:44 Dose: 25 mg Documented by: NIKKIE Cyclobenzaprine HCl (Cyclobenzaprine Hcl 10 Mg Tablet) 10 mg PO TID [facility] Last Admin: 05/17/21 10:43 Dose: 10 mg Documented by: NIKKIE Dexamethasone Sodium Phosphate (Dexamethasone Sod Phosphate 4 Mg/Ml Vial) 6 mg IVPUSH DAILY [facility] Last Admin: 05/17/21 10:44 Dose: 6 mg Documented by: NIKKIE Diltiazem HCl (Diltiazem Hcl Cd 120 Mg Cap.Er.Deg) 120 mg PO DAILY [facility]; Protocol Last Admin: 05/17/21 10:43 Dose: 120 mg Documented by: NIKKIE Enoxaparin Sodium (Enoxaparin Sodium 40 Mg/0.4 Ml Syringe) 40 mg SUBCUT Q24H [facility] Last Admin: 05/16/21 21:57 Dose: 40 mg Documented by: SOFÍA Ergocalciferol (Ergocalciferol (Vitamin D2) 1,250 Mcg Capsule) 1,250 mcg PO Suarez [facility] Ibuprofen (Ibuprofen 400 Mg Tablet) 400 mg PO TID PRN PRN Reason: fever or pain Last Admin: 05/16/21 15:30 Dose: 400 mg Documented by: JEFFREY Lorazepam (Lorazepam 0.5 Mg Tablet) 0.5 mg PO BID PRN PRN Reason: Anxiety Last Admin: 05/17/21 10:39 Dose: 0.5 mg Documented by: NIKKIE Melatonin (Melatonin 3 Mg Tablet) 6 mg PO BEDTIME PRN PRN Reason: Insomnia Omeprazole (Omeprazole 20 Mg Capsule.Dr) 20 mg PO BID [facility] Last Admin: 05/17/21 10:43 Dose: 20 mg Documented by: NIKKIE Ondansetron HCl (Ondansetron Hcl 4 Mg/2 Ml Vial) 4 mg IVPUSH Q6H PRN PRN Reason: Nausea Last Admin: 05/16/21 07:48 Dose: 4 mg Documented by: JOSIE Oxcarbazepine (Oxcarbazepine 300 Mg Tablet) 300 mg PO BID [facility] Last Admin: 05/17/21 10:44 Dose: 300 mg Documented by: NIKKIE Oxycodone HCl (Oxycodone Hcl Immed Release 5 Mg Tablet) 5 mg PO BID [facility] Last Admin: 05/17/21 10:39 Dose: 5 mg Documented by: NIKKIE Quetiapine Fumarate (Quetiapine Fumarate 50 Mg Tablet) 50 mg PO BEDTIME [facility] Last Admin: 05/16/21 21:56 Dose: 50 mg Documented by: SOFÍA Senna (Sennosides 8.6 Mg Tablet) 17.2 mg PO BEDTIME PRN PRN Reason: Constipation Sertraline HCl (Sertraline Hcl 25 Mg Tablet) 75 mg PO BID [facility] Last Admin: 05/17/21 10:38 Dose: 75 mg Documented by: NIKKIE Sodium Chloride (0.9 % Sodium Chloride Flush 3 Ml Syringe) 3 ml IVFLUSH QSHIFT [facility] Last Admin: 05/17/21 10:40 Dose: 3 ml Documented by: NIKKIE Tolterodine Tartrate (Tolterodine Tartrate La 4 Mg Cap.Er.24h) 4 mg PO DAILY [facility] Last Admin: 05/17/21 10:43 Dose: 4 mg Documented by: NIKKIE Labs CBC & Chem 7: 05/17/21 07:19 05/17/21 07:19 Labs: Laboratory Results - last 24 hr 05/17/21 05/17/21 07:19 07:19 MCV 86.3 MCH 29.3 MCHC 33.9 RDW 13.0 Plt Count 125 L D MPV 10.2 Immature Gran % (Auto) 2.0 H Neut % (Auto) 63.4 Lymph % (Auto) 22.1 [place] % (Auto) 11.9 H Eos % (Auto) 0.3 Baso % (Auto) 0.3 Lymph # (Auto) 0.8 L [place] # (Auto) 0.4 Eos # (Auto) 0.0 Baso # (Auto) 0.0 Abs Immat Gran (auto) 0.07 H Absolute Neuts (auto) 2.2 Absolute Nucleated RBC 0.000 Nucleated RBC % (auto) 0.0 Smear Tech's Comments Not Reportable Anion Gap 15 Estim Creat Clear Calc 52.2 Estimated GFR 44 Fasting Glucose 100 H Calcium 7.8 L Total Bilirubin 0.2 AST 41 H ALT 39 H Alkaline Phosphatase 57 Total Protein 6.0 L Albumin 3.6 Microbiology Microbiology Results: Microbiology 05/15/21 21:26 Blood Culture - Preliminary Blood - Venous No growth after 24 hours. 05/15/21 21:25 Blood Culture - Preliminary Blood - Venous No growth after 24 hours. Assessment and Plan (1) COVID-19: Status: Acute (2) Essential hypertension: Status: Acute (3) Anxiety: Status: Acute Assessment and Plan: 65-year-old female with a past medical history of hypertension, hyperlipidemia, anxiety, depression, osteoarthritis, multiple sclerosis, chronic pain syndrome, history of paroxysmal SVT, GERD, history of dysphagia, COVID-19 positive about a week ago presented to the hospital with a chief complaint of shortness of breath/cough/generalized weakness/dyspnea on exertion. Noted to have COVID-19 pneumonia. 1.COVID-19 pneumonia Will DC antibiotics; IV Decadron 6 mg daily. Will add Pepcid 20 mg b.i.d. 2.HTN Continue Coreg/diltiazem 3. Depression Continue Trileptal Seroquel and Zoloft as ordered Given anxiety component, will make Ativan t.i.d. p.r.n. DVT prophylaxis: Lovenox Code status: Full code Quality Stroke Does the patient have a stroke diagnosis?: No VTE Prior VTE?: No VTE Risk Level:: Medical - moderate - high VTE Device Contraindication: Treatment Not Indicated VTE Drug Contraindication: N/A - Med Ordered
[2021-05-17] MEDS: QUEtiapine Fumarate 50 MG TABLET PO (20:39)
[2021-05-17] MEDS: Benzonatate 100 MG CAPSULE PO (21:47)
[2021-05-17] MEDS: Enoxaparin Sodium 40 MG/0.4 ML SYRINGE SUBCUT (21:47)
[2021-05-18] VITALS (8 sets, daily range): BP systolic 114–137; BP diastolic 66–76; PULSE 66–80; RESP 18–20; TEMP 36.1–37.3; O2SAT 94–97
[2021-05-18] MEDS: Ibuprofen 400 MG TABLET PO (02:24)
[2021-05-18 06:57] LABS: MANUAL DIFF FLAG NO
[2021-05-18 06:59] LABS: Hematocrit 29.2 % (37.0-47.0); Hemoglobin 9.8 g/dl (12.0-16.0); Imm Gran Abs Auto 0.06 X10*3/uL (0.00-0.03); Imm Gran Pct Auto 1.5 % (0.0-0.4); Lymphocytes Percent Auto 25.1 % (20-40); Mean Corpuscular HGB Conc 33.6 g/dl (31.0-35.0); Mean Corpuscular Volume 86.4 fL (80.0-98.0); Monocytes Absolute Auto 0.5 X10*3/uL (0.1-1.2); Monocytes Percent Auto 13.1 % (2-11); Neutrophils Absolute Auto 2.4 x10*3/uL (2.0-8.3); Neutrophils Percent Auto 60.3 % (45-73); Platelet Count 147 X10*3/uL (160-400); Red Blood Count 3.38 X10*6/uL (4.20-5.50); Red Cell Distribution Width 12.9 % (11.0-16.0)
[2021-05-18 07:24] LABS: Alanine Aminotransferase 36 U/L (0-31); Albumin Level 3.4 g/dL (3.5-5.0); Alkaline Phosphatase 53 U/L (39-117); Anion Gap 15 (12-20); Aspartate Amino Transferase 37 U/L (5-31); Bilirubin Total 0.3 mg/dL (0.0-1.0); Blood Urea Nitrogen 21 mg/dL (9-16); Calcium 7.7 mg/dL (8.4-10.2); Carbon Dioxide 18 mmol/L (22-29); Chloride 104 mmol/L (96-108); Creatinine Clr Calc Pharmacy 53.6; Estimated Glomerular Filt Rate 46; Glucose Fasting 95 mg/dL (60-99); Potassium 3.6 mmol/L (3.3-5.1); Sodium 133 mmol/L (135-145); Total Protein 5.5 g/dL (6.5-8.0)
[2021-05-18] MEDS: Cyclobenzaprine HCl 10 MG TABLET PO ×3 (10:19→20:58)
[2021-05-18] MEDS: dexAMETHasone sod phosphate 4 MG/ML VIAL 6 MG IVPUSH (10:19)
[2021-05-18] MEDS: OXcarbazepine 300 MG TABLET PO ×2 (10:19→20:59)
[2021-05-18] MEDS: Omeprazole 20 MG CAPSULE.DR PO ×2 (10:19→20:57)
[2021-05-18] MEDS: Tolterodine Tartrate LA 4 MG CAP.ER.24H PO (10:19)
[2021-05-18] MEDS: oxyCODONE HCl Immed Release 5 MG TABLET PO ×2 (10:20→20:56)
[2021-05-18] MEDS: 0.9 % Sodium Chloride Flush 3 ML SYRINGE IVFLUSH ×3 (10:20→20:59)
[2021-05-18] MEDS: carvediloL 25 MG TABLET PO (10:20)
[2021-05-18] MEDS: Sertraline HCL 25 MG TABLET 75 MG PO ×2 (10:20→20:58)
[2021-05-18] MEDS: dilTIAZem HCL CD 120 MG CAP.ER.DEG PO (10:22)
[2021-05-18] MEDS: LORazepam 0.5 MG TABLET PO ×2 (10:31→21:01)
--- NOTE | 2021-05-18 15:59 | P.PNIM_ITS ---
Subjective Subjective Date of Service: 05/18/21 Interval History: notes improved overnight, no respiratory distress. No acute issues Review of Systems denies chest pain Denies shortness of breath Denies nausea vomiting diarrhea Physical Exam Vital Signs: Vital Signs: Last Vital Signs Temp 96.9 F 05/18/21 15:36 Pulse 69 05/18/21 15:36 Resp 20 05/18/21 15:36 BP 119/66 05/18/21 15:36 Pulse Ox 95 05/18/21 15:36 Oxygen Flow Rate 2 05/16/21 02:52 Body Mass Index 38.3 Const: Other: Awake alert oriented x3 no acute distress Resp: Other: Faint crackles bilateral bases but otherwise clear to auscultation Cardio: Other: No S4; S1-S2; no S3 murmurs rubs or gallops GI: Other: Soft nontender nondistended with normoactive bowel sounds Extrem: Other: No edema bilaterally Objective Data Active Medications Acetaminophen (Acetaminophen 325 Mg Tablet) 650 mg PO Q6H PRN PRN Reason: Pain, Mild (Pain Scale 1-3) Albuterol Sulfate (Albuterol Sulfate 90 Mcg 8 Gm Inhaler) 2 puff INHALE RQ4H PRN PRN Reason: Shortness of Breath/Wheezing Benzonatate (Benzonatate 100 Mg Capsule) 100 mg PO TID PRN PRN Reason: Cough Last Admin: 05/17/21 21:47 Dose: 100 mg Documented by: STEVE Carvedilol (Carvedilol 25 Mg Tablet) 25 mg PO DAILY [facility]; Protocol Last Admin: 05/18/21 10:20 Dose: 25 mg Documented by: RONNIE Cyclobenzaprine HCl (Cyclobenzaprine Hcl 10 Mg Tablet) 10 mg PO TID [facility] Last Admin: 05/18/21 10:19 Dose: 10 mg Documented by: RONNIE Dexamethasone Sodium Phosphate (Dexamethasone Sod Phosphate 4 Mg/Ml Vial) 6 mg IVPUSH DAILY [facility] Last Admin: 05/18/21 10:19 Dose: 6 mg Documented by: RONNIE Diltiazem HCl (Diltiazem Hcl Cd 120 Mg Cap.Er.Deg) 120 mg PO DAILY [facility]; Protocol Last Admin: 05/18/21 10:22 Dose: 120 mg Documented by: RONNIE Enoxaparin Sodium (Enoxaparin Sodium 40 Mg/0.4 Ml Syringe) 40 mg SUBCUT Q24H [facility] Last Admin: 05/17/21 21:47 Dose: 40 mg Documented by: STEVE Ergocalciferol (Ergocalciferol (Vitamin D2) 1,250 Mcg Capsule) 1,250 mcg PO Suarez [facility] Ibuprofen (Ibuprofen 400 Mg Tablet) 400 mg PO TID PRN PRN Reason: fever or pain Last Admin: 05/18/21 02:24 Dose: 400 mg Documented by: STEVE Lorazepam (Lorazepam 0.5 Mg Tablet) 0.5 mg PO Q8H PRN PRN Reason: Anxiety Last Admin: 05/18/21 10:31 Dose: 0.5 mg Documented by: RONNIE Melatonin (Melatonin 3 Mg Tablet) 6 mg PO BEDTIME PRN PRN Reason: Insomnia Omeprazole (Omeprazole 20 Mg Capsule.Dr) 20 mg PO BID [facility] Last Admin: 05/18/21 10:19 Dose: 20 mg Documented by: RONNIE Ondansetron HCl (Ondansetron Hcl 4 Mg/2 Ml Vial) 4 mg IVPUSH Q6H PRN PRN Reason: Nausea Last Admin: 05/16/21 07:48 Dose: 4 mg Documented by: JOSIE Oxcarbazepine (Oxcarbazepine 300 Mg Tablet) 300 mg PO BID [facility] Last Admin: 05/18/21 10:19 Dose: 300 mg Documented by: RONNIE Oxycodone HCl (Oxycodone Hcl Immed Release 5 Mg Tablet) 5 mg PO BID [facility] Last Admin: 05/18/21 10:20 Dose: 5 mg Documented by: RONNIE Quetiapine Fumarate (Quetiapine Fumarate 50 Mg Tablet) 50 mg PO BEDTIME [facility] Last Admin: 05/17/21 20:39 Dose: 50 mg Documented by: STEVE Senna (Sennosides 8.6 Mg Tablet) 17.2 mg PO BEDTIME PRN PRN Reason: Constipation Sertraline HCl (Sertraline Hcl 25 Mg Tablet) 75 mg PO BID [facility] Last Admin: 05/18/21 10:20 Dose: 75 mg Documented by: RONNIE Sodium Chloride (0.9 % Sodium Chloride Flush 3 Ml Syringe) 3 ml IVFLUSH QSHIFT [facility] Last Admin: 05/18/21 10:20 Dose: 3 ml Documented by: RONNIE Tolterodine Tartrate (Tolterodine Tartrate La 4 Mg Cap.Er.24h) 4 mg PO DAILY [facility] Last Admin: 05/18/21 10:19 Dose: 4 mg Documented by: RONNIE Labs CBC & Chem 7: 05/18/21 06:28 05/18/21 06:28 Labs: Laboratory Results - last 24 hr 05/18/21 05/18/21 06:28 06:28 MCV 86.4 MCH 29.0 MCHC 33.6 RDW 12.9 Plt Count 147 L MPV 10.0 Immature Gran % (Auto) 1.5 H Neut % (Auto) 60.3 Lymph % (Auto) 25.1 [place] % (Auto) 13.1 H Eos % (Auto) 0.0 Baso % (Auto) 0.0 Lymph # (Auto) 1.0 L [place] # (Auto) 0.5 Eos # (Auto) 0.0 Baso # (Auto) 0.0 Abs Immat Gran (auto) 0.06 H Absolute Neuts (auto) 2.4 Absolute Nucleated RBC 0.000 Nucleated RBC % (auto) 0.0 Anion Gap 15 Estim Creat Clear Calc 53.6 Estimated GFR 46 Fasting Glucose 95 Calcium 7.7 L Total Bilirubin 0.3 AST 37 H ALT 36 H Alkaline Phosphatase 53 Total Protein 5.5 L Albumin 3.4 L Microbiology Microbiology Results: Microbiology 05/15/21 21:26 Blood Culture - Preliminary Blood - Venous No growth after 48 hours. 05/15/21 21:25 Blood Culture - Preliminary Blood - Venous No growth after 48 hours. Assessment and Plan (1) COVID-19: Status: Acute (2) Anxiety: Status: Acute Assessment and Plan: 65-year-old female with a past medical history of hypertension, hyperlipidemia, anxiety, depression, osteoarthritis, multiple sclerosis, chronic pain syndrome, history of paroxysmal SVT, GERD, history of dysphagia, COVID-19 positive about a week ago presented to the hospital with a chief complaint of shortness of breath/cough/generalized weakness/dyspnea on exertion. Noted to have COVID-19 pneumonia. improved this a.m. 1.COVID-19 pneumonia responding well to therapy; IV Decadron 6 mg daily. Hopeful discharge in am 2.HTN Continue Coreg/diltiazem 3. Depression Continue Trileptal Seroquel and Zoloft as ordered Given anxiety component, will make Ativan t.i.d. p.r.n. DVT prophylaxis: Lovenox Code status: Full code Quality Stroke Does the patient have a stroke diagnosis?: No VTE Prior VTE?: No VTE Risk Level:: Medical - moderate - high VTE Device Contraindication: Treatment Not Indicated VTE Drug Contraindication: N/A - Med Ordered
[2021-05-18] MEDS: Zolpidem Tartrate 5 MG TABLET PO (20:58)
[2021-05-18] MEDS: Enoxaparin Sodium 40 MG/0.4 ML SYRINGE SUBCUT (20:59)
[2021-05-18] MEDS: QUEtiapine Fumarate 50 MG TABLET PO (20:59)
[2021-05-19] MEDS: Benzonatate 100 MG CAPSULE PO ×2 (03:10→16:04)
[2021-05-19 03:12] VITALS: BP 161/94; PULSE 71; RESP 20; TEMP 36.1; O2SAT 90
[2021-05-19] MEDS: LORazepam 0.5 MG TABLET PO ×3 (05:17→23:12)
[2021-05-19 05:37] LABS: MANUAL DIFF FLAG NO
[2021-05-19 05:41] LABS: Basophils Percent Auto 0.2 % (0-2); Eosinophils Percent Auto 0.2 % (0-4); Hematocrit 30.7 % (37.0-47.0); Hemoglobin 10.2 g/dl (12.0-16.0); Imm Gran Abs Auto 0.07 X10*3/uL (0.00-0.03); Imm Gran Pct Auto 1.7 % (0.0-0.4); Lymphocytes Absolute Auto 0.9 X10*3/uL (1.2-4.9); Lymphocytes Percent Auto 21.9 % (20-40); Mean Corpuscular HGB Conc 33.2 g/dl (31.0-35.0); Mean Corpuscular Hemoglobin 28.7 pg (27.0-33.0); Mean Corpuscular Volume 86.2 fL (80.0-98.0); Mean Platelet Volume 9.6 fL (9.4-12.3); Monocytes Absolute Auto 0.4 X10*3/uL (0.1-1.2); Monocytes Percent Auto 10.7 % (2-11); Neutrophils Absolute Auto 2.6 x10*3/uL (2.0-8.3); Neutrophils Percent Auto 65.3 % (45-73); Platelet Count 167 X10*3/uL (160-400); Red Blood Count 3.56 X10*6/uL (4.20-5.50); Red Cell Distribution Width 12.4 % (11.0-16.0)
[2021-05-19 06:00] LABS: Alanine Aminotransferase 42 U/L (0-31); Albumin Level 3.4 g/dL (3.5-5.0); Alkaline Phosphatase 59 U/L (39-117); Anion Gap 13 (12-20); Aspartate Amino Transferase 39 U/L (5-31); Bilirubin Total 0.3 mg/dL (0.0-1.0); Blood Urea Nitrogen 21 mg/dL (9-16); Calcium 7.8 mg/dL (8.4-10.2); Carbon Dioxide 20 mmol/L (22-29); Chloride 107 mmol/L (96-108); Creatinine Clr Calc Pharmacy 68.7; Estimated Glomerular Filt Rate > 60; Glucose Fasting 104 mg/dL (60-99); Potassium 3.6 mmol/L (3.3-5.1); Sodium 136 mmol/L (135-145); Total Protein 5.7 g/dL (6.5-8.0)
[2021-05-19 08:00] VITALS: BP 156/77; PULSE 71; RESP 18; TEMP 37; O2SAT 93
[2021-05-19] MEDS: 0.9 % Sodium Chloride Flush 3 ML SYRINGE IVFLUSH ×3 (10:22→19:48)
[2021-05-19] MEDS: dexAMETHasone sod phosphate 4 MG/ML VIAL 6 MG IVPUSH (10:22)
[2021-05-19] MEDS: dilTIAZem HCL CD 120 MG CAP.ER.DEG PO (10:23)
[2021-05-19] MEDS: Sertraline HCL 25 MG TABLET 75 MG PO ×2 (10:23→19:45)
[2021-05-19] MEDS: Tolterodine Tartrate LA 4 MG CAP.ER.24H PO (10:23)
[2021-05-19] MEDS: Cyclobenzaprine HCl 10 MG TABLET PO ×3 (10:24→19:46)
[2021-05-19] MEDS: Omeprazole 20 MG CAPSULE.DR PO ×2 (10:24→19:46)
[2021-05-19] MEDS: OXcarbazepine 300 MG TABLET PO ×2 (10:24→19:47)
[2021-05-19] MEDS: oxyCODONE HCl Immed Release 5 MG TABLET PO ×2 (10:24→19:46)
[2021-05-19] MEDS: carvediloL 25 MG TABLET PO (10:24)
[2021-05-19 11:39] VITALS: BP 148/69; PULSE 60; RESP 20; TEMP 36.6; O2SAT 96
--- NOTE | 2021-05-19 15:38 | HO.PM.IMPN ---
Subjective Subjective Date of Service: 05/19/21 Interval History: slowly improving; still with O2 requirement Review of Systems denies chest pain Admits to shortness of breath with exertion Denies nausea vomiting diarrhea Physical Exam Vital Signs: Vital Signs: Last Vital Signs Temp 97.9 F 05/19/21 11:39 Pulse 60 05/19/21 11:39 Resp 20 05/19/21 11:39 BP 148/69 H 05/19/21 11:39 Pulse Ox 96 05/19/21 11:39 Oxygen Flow Rate 2 05/16/21 02:52 Body Mass Index 38.3 Const: Other: Awake alert oriented x3 no acute distress Resp: Other: Faint crackles bilateral bases but otherwise clear to auscultation Cardio: Other: No S4; S1-S2; no S3 murmurs rubs or gallops GI: Other: Soft nontender nondistended with normoactive bowel sounds Extrem: Other: No edema bilaterally Objective Data Active Medications Acetaminophen (Acetaminophen 325 Mg Tablet) 650 mg PO Q6H PRN PRN Reason: Pain, Mild (Pain Scale 1-3) Albuterol Sulfate (Albuterol Sulfate 90 Mcg 8 Gm Inhaler) 2 puff INHALE RQ4H PRN PRN Reason: Shortness of Breath/Wheezing Benzonatate (Benzonatate 100 Mg Capsule) 100 mg PO TID PRN PRN Reason: Cough Last Admin: 05/19/21 03:10 Dose: 100 mg Documented by: JANELLE Carvedilol (Carvedilol 25 Mg Tablet) 25 mg PO DAILY [facility]; Protocol Last Admin: 05/19/21 10:24 Dose: 25 mg Documented by: EVERETT Cyclobenzaprine HCl (Cyclobenzaprine Hcl 10 Mg Tablet) 10 mg PO TID [facility] Last Admin: 05/19/21 14:21 Dose: 10 mg Documented by: EVERETT Dexamethasone Sodium Phosphate (Dexamethasone Sod Phosphate 4 Mg/Ml Vial) 6 mg IVPUSH DAILY [facility] Last Admin: 05/19/21 10:22 Dose: 6 mg Documented by: EVERETT Diltiazem HCl (Diltiazem Hcl Cd 120 Mg Cap.Er.Deg) 120 mg PO DAILY [facility]; Protocol Last Admin: 05/19/21 10:23 Dose: 120 mg Documented by: EVERETT Enoxaparin Sodium (Enoxaparin Sodium 40 Mg/0.4 Ml Syringe) 40 mg SUBCUT Q24H [facility] Last Admin: 05/18/21 20:59 Dose: 40 mg Documented by: JANELLE Ergocalciferol (Ergocalciferol (Vitamin D2) 1,250 Mcg Capsule) 1,250 mcg PO Suarez [facility] Ibuprofen (Ibuprofen 400 Mg Tablet) 400 mg PO TID PRN PRN Reason: fever or pain Last Admin: 05/18/21 02:24 Dose: 400 mg Documented by: STEVE Lorazepam (Lorazepam 0.5 Mg Tablet) 0.5 mg PO Q8H PRN PRN Reason: Anxiety Last Admin: 05/19/21 05:17 Dose: 0.5 mg Documented by: JANELLE Melatonin (Melatonin 3 Mg Tablet) 6 mg PO BEDTIME PRN PRN Reason: Insomnia Omeprazole (Omeprazole 20 Mg Capsule.Dr) 20 mg PO BID [facility] Last Admin: 05/19/21 10:24 Dose: 20 mg Documented by: EVERETT Ondansetron HCl (Ondansetron Hcl 4 Mg/2 Ml Vial) 4 mg IVPUSH Q6H PRN PRN Reason: Nausea Last Admin: 05/16/21 07:48 Dose: 4 mg Documented by: JOSIE Oxcarbazepine (Oxcarbazepine 300 Mg Tablet) 300 mg PO BID [facility] Last Admin: 05/19/21 10:24 Dose: 300 mg Documented by: EVERETT Oxycodone HCl (Oxycodone Hcl Immed Release 5 Mg Tablet) 5 mg PO BID [facility] Last Admin: 05/19/21 10:24 Dose: 5 mg Documented by: EVERETT Quetiapine Fumarate (Quetiapine Fumarate 50 Mg Tablet) 50 mg PO BEDTIME [facility] Last Admin: 05/18/21 20:59 Dose: 50 mg Documented by: JANELLE Senna (Sennosides 8.6 Mg Tablet) 17.2 mg PO BEDTIME PRN PRN Reason: Constipation Sertraline HCl (Sertraline Hcl 25 Mg Tablet) 75 mg PO BID [facility] Last Admin: 05/19/21 10:23 Dose: 75 mg Documented by: EVERETT Sodium Chloride (0.9 % Sodium Chloride Flush 3 Ml Syringe) 3 ml IVFLUSH QSHIFT [facility] Last Admin: 05/19/21 14:21 Dose: 3 ml Documented by: EVERETT Tolterodine Tartrate (Tolterodine Tartrate La 4 Mg Cap.Er.24h) 4 mg PO DAILY [facility] Last Admin: 05/19/21 10:23 Dose: 4 mg Documented by: EVERETT Zolpidem Tartrate (Zolpidem Tartrate 5 Mg Tablet) 5 mg PO BEDTIME [facility] Last Admin: 05/18/21 20:58 Dose: 5 mg Documented by: JANELLE Labs CBC & Chem 7: 05/19/21 05:28 05/19/21 05:28 Labs: Laboratory Results - last 24 hr 05/19/21 05/19/21 05:28 05:28 MCV 86.2 MCH 28.7 MCHC 33.2 RDW 12.4 Plt Count 167 MPV 9.6 Immature Gran % (Auto) 1.7 H Neut % (Auto) 65.3 Lymph % (Auto) 21.9 [place] % (Auto) 10.7 Eos % (Auto) 0.2 Baso % (Auto) 0.2 Lymph # (Auto) 0.9 L [place] # (Auto) 0.4 Eos # (Auto) 0.0 Baso # (Auto) 0.0 Abs Immat Gran (auto) 0.07 H Absolute Neuts (auto) 2.6 Absolute Nucleated RBC 0.000 Nucleated RBC % (auto) 0.0 Anion Gap 13 Estim Creat Clear Calc 68.7 Estimated GFR > 60 Fasting Glucose 104 H Calcium 7.8 L Total Bilirubin 0.3 AST 39 H ALT 42 H Alkaline Phosphatase 59 Total Protein 5.7 L Albumin 3.4 L Assessment and Plan (1) COVID-19: Status: Acute (2) Anxiety: Status: Acute Assessment and Plan: 65-year-old female with a past medical history of hypertension, hyperlipidemia, anxiety, depression, osteoarthritis, multiple sclerosis, chronic pain syndrome, history of paroxysmal SVT, GERD, history of dysphagia, COVID-19 positive about a week ago presented to the hospital with a chief complaint of shortness of breath/cough/generalized weakness/dyspnea on exertion. Noted to have COVID-19 pneumonia. improved this a.m. 1.COVID-19 pneumonia responding well to therapy; IV Decadron 6 mg daily. wean O2 as tolerated 2.HTN Continue Coreg/diltiazem 3. Depression Continue Trileptal Seroquel and Zoloft as ordered Given anxiety component, will make Ativan t.i.d. p.r.n. DVT prophylaxis: Lovenox Code status: Full code Quality Stroke Does the patient have a stroke diagnosis?: No VTE Prior VTE?: No VTE Risk Level:: Medical - moderate - high VTE Device Contraindication: Treatment Not Indicated VTE Drug Contraindication: N/A - Med Ordered
[2021-05-19 15:53] VITALS: BP 143/79; PULSE 72; RESP 22; TEMP 36.7; O2SAT 82
--- NOTE | 2021-05-19 18:01 | PC.NURSE ---
02 decreased to 1L at 1400. Carmine well SAT is 94% OOB to recliner earlier today. Has hx anxiety. Ativan given with eff. Occ non prod cough.
[2021-05-19 19:23] VITALS: BP 138/81; PULSE 66; RESP 20; TEMP 36.7; O2SAT 94
[2021-05-19] MEDS: QUEtiapine Fumarate 50 MG TABLET PO (19:47)
[2021-05-19] MEDS: Zolpidem Tartrate 5 MG TABLET PO (19:47)
[2021-05-19] MEDS: Enoxaparin Sodium 40 MG/0.4 ML SYRINGE SUBCUT (23:13)
[2021-05-19] MEDS: Melatonin 3 MG TABLET 6 MG PO (23:17)
[2021-05-19 23:30] VITALS: BP 115/65; PULSE 66; RESP 20; TEMP 36.1; O2SAT 98
[2021-05-20 03:35] VITALS: BP 115/67; PULSE 80; RESP 20; TEMP 36.3; O2SAT 91
[2021-05-20 08:00] VITALS: BP 129/73; PULSE 71; RESP 18; TEMP 37.3; O2SAT 93
[2021-05-20] MEDS: carvediloL 25 MG TABLET PO (10:14)
[2021-05-20] MEDS: Sertraline HCL 25 MG TABLET 75 MG PO ×2 (10:14→19:59)
[2021-05-20] MEDS: LORazepam 0.5 MG TABLET PO ×2 (10:14→18:10)
[2021-05-20] MEDS: Tolterodine Tartrate LA 4 MG CAP.ER.24H PO (10:14)
[2021-05-20] MEDS: Benzonatate 100 MG CAPSULE PO (10:14)
[2021-05-20] MEDS: OXcarbazepine 300 MG TABLET PO ×2 (10:14→19:59)
[2021-05-20] MEDS: dilTIAZem HCL CD 120 MG CAP.ER.DEG PO (10:14)
[2021-05-20] MEDS: Omeprazole 20 MG CAPSULE.DR PO ×2 (10:15→20:01)
[2021-05-20] MEDS: Cyclobenzaprine HCl 10 MG TABLET PO ×3 (10:15→20:00)
[2021-05-20] MEDS: dexAMETHasone sod phosphate 4 MG/ML VIAL 6 MG IVPUSH (10:16)
[2021-05-20] MEDS: 0.9 % Sodium Chloride Flush 3 ML SYRINGE IVFLUSH ×3 (10:16→20:01)
[2021-05-20] MEDS: oxyCODONE HCl Immed Release 5 MG TABLET PO ×2 (10:17→19:59)
[2021-05-20] MEDS: Ergocalciferol (Vitamin D2) 1,250 MCG CAPSULE 1250 MCG PO (10:20)
[2021-05-20 12:00] VITALS: BP 111/71; PULSE 78; RESP 20; TEMP 36.6; O2SAT 92
[2021-05-20 12:39] VITALS: PULSE 73; O2SAT 90
[2021-05-20 15:59] VITALS: BP 138/80; PULSE 69; RESP 18; TEMP 36.1; O2SAT 93
--- NOTE | 2021-05-20 17:22 | P.PNIM_ITS ---
Subjective Subjective Date of Service: 06/05/21 Interval History: remains anxious overall about condition; no acute respiratory distress without movement Review of Systems denies chest pain Denies shortness of breath Denies nausea vomiting diarrhea Physical Exam Vital Signs: Vital Signs: Last Vital Signs Temp 97.0 F 05/20/21 15:59 Pulse 69 05/20/21 15:59 Resp 18 05/20/21 15:59 BP 138/80 05/20/21 15:59 Pulse Ox 93 05/20/21 15:59 Oxygen Flow Rate 2 05/16/21 02:52 Body Mass Index 38.3 Const: Other: Awake alert oriented x3 no acute distress Resp: Other: Faint crackles bilateral bases but otherwise clear to auscultation Cardio: Other: No S4; S1-S2; no S3 murmurs rubs or gallops GI: Other: Soft nontender nondistended with normoactive bowel sounds Extrem: Other: No edema bilaterally Objective Data Active Medications Acetaminophen (Acetaminophen 325 Mg Tablet) 650 mg PO Q6H PRN PRN Reason: Pain, Mild (Pain Scale 1-3) Albuterol Sulfate (Albuterol Sulfate 90 Mcg 8 Gm Inhaler) 2 puff INHALE RQ4H PRN PRN Reason: Shortness of Breath/Wheezing Benzonatate (Benzonatate 100 Mg Capsule) 100 mg PO TID PRN PRN Reason: Cough Last Admin: 05/20/21 10:14 Dose: 100 mg Documented by: RAJINDER Carvedilol (Carvedilol 25 Mg Tablet) 25 mg PO DAILY [facility]; Protocol Last Admin: 05/20/21 10:14 Dose: 25 mg Documented by: RAJINDER Cyclobenzaprine HCl (Cyclobenzaprine Hcl 10 Mg Tablet) 10 mg PO TID [facility] Last Admin: 05/20/21 15:54 Dose: 10 mg Documented by: KRISTOFER Dexamethasone Sodium Phosphate (Dexamethasone Sod Phosphate 4 Mg/Ml Vial) 6 mg IVPUSH DAILY [facility] Last Admin: 05/20/21 10:16 Dose: 6 mg Documented by: RAJINDER Diltiazem HCl (Diltiazem Hcl Cd 120 Mg Cap.Er.Deg) 120 mg PO DAILY [facility]; Anastacio col Last Admin: 05/20/21 10:14 Dose: 120 mg Documented by: RAJINDER Enoxaparin Sodium (Enoxaparin Sodium 40 Mg/0.4 Ml Syringe) 40 mg SUBCUT Q24H [facility] Last Admin: 05/19/21 23:13 Dose: 40 mg Documented by: LENNOX Ergocalciferol (Ergocalciferol (Vitamin D2) 1,250 Mcg Capsule) 1,250 mcg PO Suarez [facility] Last Admin: 05/20/21 10:20 Dose: 1,250 mcg Documented by: RAJINDER Ibuprofen (Ibuprofen 400 Mg Tablet) 400 mg PO TID PRN PRN Reason: fever or pain Last Admin: 05/18/21 02:24 Dose: 400 mg Documented by: STEVE Lorazepam (Lorazepam 0.5 Mg Tablet) 0.5 mg PO Q8H PRN PRN Reason: Anxiety Last Admin: 05/20/21 10:14 Dose: 0.5 mg Documented by: RAJINDER Melatonin (Melatonin 3 Mg Tablet) 6 mg PO BEDTIME PRN PRN Reason: Insomnia Last Admin: 05/19/21 23:17 Dose: 6 mg Documented by: LENNOX Omeprazole (Omeprazole 20 Mg Capsule.Dr) 20 mg PO BID [facility] Last Admin: 05/20/21 10:15 Dose: 20 mg Documented by: RAJINDER Ondansetron HCl (Ondansetron Hcl 4 Mg/2 Ml Vial) 4 mg IVPUSH Q6H PRN PRN Reason: Nausea Last Admin: 05/16/21 07:48 Dose: 4 mg Documented by: JOSIE Oxcarbazepine (Oxcarbazepine 300 Mg Tablet) 300 mg PO BID [facility] Last Admin: 05/20/21 10:14 Dose: 300 mg Documented by: RAJINDER Oxycodone HCl (Oxycodone Hcl Immed Release 5 Mg Tablet) 5 mg PO BID [facility] Last Admin: 05/20/21 10:17 Dose: 5 mg Documented by: RAJINDER Quetiapine Fumarate (Quetiapine Fumarate 50 Mg Tablet) 50 mg PO BEDTIME [facility] Last Admin: 05/19/21 19:47 Dose: 50 mg Documented by: LENNOX Senna (Sennosides 8.6 Mg Tablet) 17.2 mg PO BEDTIME PRN PRN Reason: Constipation Sertraline HCl (Sertraline Hcl 25 Mg Tablet) 75 mg PO BID [facility] Last Admin: 05/20/21 10:14 Dose: 75 mg Documented by: RAJINDER Sodium Chloride (0.9 % Sodium Chloride Flush 3 Ml Syringe) 3 ml IVFLUSH QSHIFT [facility] Last Admin: 05/20/21 15:55 Dose: 3 ml Documented by: KRISTOFER Tolterodine Tartrate (Tolterodine Tartrate La 4 Mg Cap.Er.24h) 4 mg PO DAILY [facility] Last Admin: 05/20/21 10:14 Dose: 4 mg Documented by: RAJINDER Zolpidem Tartrate (Zolpidem Tartrate 5 Mg Tablet) 5 mg PO BEDTIME [facility] Last Admin: 05/19/21 19:47 Dose: 5 mg Documented by: LENNOX Labs CBC & Chem 7: 05/21/21 05:41 05/21/21 05:41 Assessment and Plan Assessment and Plan: 65-year-old female with a past medical history of hypertension, hyperlipidemia, anxiety, depression, osteoarthritis, multiple sclerosis, chronic pain syndrome, history of paroxysmal SVT, GERD, history of dysphagia, COVID-19 positive about a week ago presented to the hospital with a chief complaint of shortness of breath/cough/generalized weakness/dyspnea on exertion. Noted to have COVID-19 pneumonia. improved this a.m. 1.COVID-19 pneumonia no shortness of breath at rest; seen by respiratory therapy for home O2 eval. Per therapist desats while on the side of the bed to low 80s on room air. Also noted to be very unsteady attempting to stand. Continue supplemental O2 and IV Decadron as ordered 2.HTN Continue Coreg/diltiazem 3. Depression Continue Trileptal Seroquel and Zoloft as ordered Given anxiety component, will make Ativan t.i.d. p.r.n. 4. Disposition Patient lives at home alone with nephew up stairs. Is very anxious about returning home but very adamant about same. Discussed at length with patient the probable need for short-term rehab given her O2 requirement and her unsteadiness. Will re- trial home O2 eval in a.m. along with PT eval. Will likely need SNF placement. DVT prophylaxis: Lovenox Code status: Full code Quality Stroke Does the patient have a stroke diagnosis?: No VTE Prior VTE?: No VTE Risk Level:: Medical - moderate - high VTE Device Contraindication: Treatment Not Indicated VTE Drug Contraindication: N/A - Med Ordered
[2021-05-20 19:55] VITALS: BP 147/84; PULSE 75; RESP 18; TEMP 36.9; O2SAT 92
[2021-05-20] MEDS: QUEtiapine Fumarate 50 MG TABLET PO (20:01)
[2021-05-20] MEDS: Zolpidem Tartrate 5 MG TABLET PO (20:01)
[2021-05-20] MEDS: Enoxaparin Sodium 40 MG/0.4 ML SYRINGE SUBCUT (22:04)
[2021-05-21] VITALS (8 sets, daily range): BP systolic 131–170; BP diastolic 74–81; PULSE 66–73; RESP 17–18; TEMP 36.4–36.6; O2SAT 92–96
[2021-05-21 06:07] LABS: Hematocrit 29.7 % (37.0-47.0); Hemoglobin 10.2 g/dl (12.0-16.0); Mean Corpuscular HGB Conc 34.3 g/dl (31.0-35.0); Mean Corpuscular Hemoglobin 29.2 pg (27.0-33.0); Mean Corpuscular Volume 85.1 fL (80.0-98.0); Mean Platelet Volume 9.3 fL (9.4-12.3); Platelet Count 218 X10*3/uL (160-400); Red Blood Count 3.49 X10*6/uL (4.20-5.50); Red Cell Distribution Width 12.4 % (11.0-16.0); White Blood Count 5.5 X10*3/uL (4.8-10.8)
[2021-05-21 06:43] LABS: Alanine Aminotransferase 45 U/L (0-31); Albumin Level 3.3 g/dL (3.5-5.0); Alkaline Phosphatase 54 U/L (39-117); Anion Gap 15 (12-20); Aspartate Amino Transferase 32 U/L (5-31); Bilirubin Total 0.3 mg/dL (0.0-1.0); Blood Urea Nitrogen 17 mg/dL (9-16); Calcium 7.9 mg/dL (8.4-10.2); Carbon Dioxide 20 mmol/L (22-29); Chloride 104 mmol/L (96-108); Creatinine Clr Calc Pharmacy 85.3; Estimated Glomerular Filt Rate > 60; Glucose Fasting 91 mg/dL (60-99); Potassium 3.8 mmol/L (3.3-5.1); Sodium 135 mmol/L (135-145); Total Protein 5.5 g/dL (6.5-8.0)
[2021-05-21 06:45] LABS: Atypical Lymph Absolute Manual 0.1 x10*3/uL; Atypical Lymphs Percent Manual 1 % (0-6); Band Neutrophils Percent 4 % (3-5); Lymphocytes Absolute Manual 1.2 X10*3/uL (1.2-4.9); Lymphocytes Percent Manual 21 % (20-40); Metamyelocytes Absolute 0.2 X10*3/uL; Metamyelocytes Percent 3 %; Monocytes Absolute Manual 0.6 X10*3/uL (0.1-1.2); Monocytes Percent Manual 10 % (2-11); Myelocytes Absolute 0.1 X10*/uL; Myelocytes Percent 1 %; Neutrophils Absolute Manual 3.5 X10*3/uL (2.0-8.3); Neutrophils Percent Manual 60 % (45-73); Platelet Estimate NORMAL (NORMAL); Platelet Morphology Comment NORMAL; RBC Morphology NORMAL
[2021-05-21] MEDS: dexAMETHasone sod phosphate 4 MG/ML VIAL 6 MG IVPUSH (09:12)
[2021-05-21] MEDS: Sertraline HCL 25 MG TABLET 75 MG PO (09:12)
[2021-05-21] MEDS: carvediloL 25 MG TABLET PO (09:13)
[2021-05-21] MEDS: Cyclobenzaprine HCl 10 MG TABLET PO ×2 (09:13→15:24)
[2021-05-21] MEDS: Omeprazole 20 MG CAPSULE.DR PO (09:13)
[2021-05-21] MEDS: Tolterodine Tartrate LA 4 MG CAP.ER.24H PO (09:13)
[2021-05-21] MEDS: LORazepam 0.5 MG TABLET PO (09:13)
[2021-05-21] MEDS: OXcarbazepine 300 MG TABLET PO (09:13)
[2021-05-21] MEDS: 0.9 % Sodium Chloride Flush 3 ML SYRINGE IVFLUSH (09:14)
[2021-05-21] MEDS: dilTIAZem HCL CD 120 MG CAP.ER.DEG PO (09:14)
[2021-05-21] MEDS: oxyCODONE HCl Immed Release 5 MG TABLET PO (09:14)
--- NOTE | 2021-05-21 11:23 | P.DS_ITS ---
DS: Providers Provider Date of Service: 05/21/21 <April Kang NP - Last Filed: 05/28/21 14:41> Date of admission: 05/15/21 22:44 <April Kang NP - Last Filed: 05/28/21 14:41> Primary care physician: Drew Marc MD <April Kang NP - Last Filed: 05/28/21 14:41> Consults: 05/15/21 22:43 Consult to Infectious Diseases Routine Consulting Provider: Malia Brooks Reason for consultation: covid pna <April Kang NP - Last Filed: 05/28/21 14:41> Attending physician on discharge: Denny Hussein <April Kang NP - Last Filed: 05/28/21 14:41> Discharging clinician: April Kang <April Kang NP - Last Filed: 05/28/21 14:41> DS: Diagnosis Discharge Diagnosis (1) COVID-19: Status: Acute <April Kang NP - Last Filed: 05/28/21 14:41> (2) Anxiety: DS: Summary Hospital Course Hospital Course: HP as per admitting provider 65-year-old female with a past medical history of hypertension, hyperlipidemia, anxiety, depression, osteoarthritis, multiple sclerosis, chronic pain syndrome, history of paroxysmal SVT, GERD, history of dysphagia presented to the hospital today with a chief complaint of shortness of breath and cough.?Patient reported that she was diagnosed with COVID-19 infection about a week ago and has been at home trying to quarantine herself; but she continued to have the symptoms; continued to have shortness of breath and dyspnea on exertion associated with cough.? Reports subjective fevers and chills.? Also complains of generalized weakness and exertion.? Denies any nausea vomiting or diarrhea.? Denies any chest pain palpitations lightheadedness or dizziness.?Review of all other systems is negative except mentioned above ER course:? Per ER team patient breathing comfortably, saturating at 95%; x-ray showed multilobar pneumonia.? Given antibiotics.? COVID-19 positive.? Admitted for further management . COVID-19. Treated with dexamethasone, oxygen. She did have some issues with desaturation during admission but date of discharge on room air. Home O2 evaluation Anxiety. Seems very anxious during admission short-term rehab was initially suggested however physical therapy thought home with services was more appropriate and patient agreed. <April Kang NP - Last Filed: 05/28/21 14:41> Time Spent with Patient Time attestation: Total time spent providing and/or coordinating discharge services: <April Kang NP - Last Filed: 05/28/21 14:41> Discharge coordination time: Greater than 30 minutes <April Kang NP - Last Filed: 05/28/21 14:41> Quality: Stroke Does the patient have a stroke diagnosis?: No <April Kang NP - Last Filed: 05/28/21 14:41> Physical Exam Vital Signs: Vital Signs: Last Vital Signs Temp 97.6 F 05/21/21 11:20 Pulse 71 05/21/21 11:20 Resp 18 05/21/21 11:20 BP 149/74 H 05/21/21 11:20 Pulse Ox 93 05/21/21 11:20 Oxygen Flow Rate 2 05/16/21 02:52 Body Mass Index 38.3 <April Kang NP - Last Filed: 05/28/21 14:41> Appearing in no acute distress head is normocephalic atraumatic eyes pupils are PERRLA sclera is anicteric mouth throat mucous membranes are intact and moist neck is supple no lymphadenopathy, no JVD noted lung sounds are clear to auscultation heart regular rate rhythm, clear S1, S2 positive bowel sounds, abdomen is soft, nontender neuro patient is alert x3, no focal deficits <April Kang NP - Last Filed: 05/28/21 14:41> DS: Data Data Completed and Pending Labs on day of discharge: Laboratory Results - last 24 hr 05/21/21 05/21/21 05:41 05:41 WBC 5.5 RBC 3.49 L Hgb 10.2 L Hct 29.7 L MCV 85.1 MCH 29.2 MCHC 34.3 RDW 12.4 Plt Count 218 D MPV 9.3 L Immature Gran % (Auto) Cancelled Neut % (Auto) Cancelled Lymph % (Auto) Cancelled [place] % (Auto) Cancelled Eos % (Auto) Cancelled Baso % (Auto) Cancelled Lymph # (Auto) Cancelled [place] # (Auto) Cancelled Eos # (Auto) Cancelled Baso # (Auto) Cancelled Abs Immat Gran (auto) Cancelled Absolute Neuts (auto) Cancelled Absolute Nucleated RBC 0.000 Nucleated RBC % (auto) 0.0 Neutrophils % (Manual) 60 Band Neutrophils % 4 Lymphocytes % (Manual) 21 Atypical Lymphs % (Man) 1 Monocytes % (Manual) 10 Metamyelocytes % 3 Myelocytes % 1 Abs Neuts (Manual) 3.5 Lymphocytes # (Manual) 1.2 Atyp Lymphs # (Manual) 0.1 Monocytes # (Manual) 0.6 Metamyelocytes # 0.2 Myelocytes # 0.1 Platelet Estimate NORMAL Plt Morphology Comment NORMAL RBC Morphology NORMAL Sodium 135 Potassium 3.8 Chloride 104 Carbon Dioxide 20 L Anion Gap 15 BUN 17 H Creatinine 0.74 Estim Creat Clear Calc 85.3 Estimated GFR > 60 Fasting Glucose 91 Calcium 7.9 L Total Bilirubin 0.3 AST 32 H ALT 45 H Alkaline Phosphatase 54 Total Protein 5.5 L Albumin 3.3 L <April Kang NP - Last Filed: 05/28/21 14:41> Discharge Plan Discharge Anticipated Discharge Date/Time: 05/21/21 11:15 <April Kang NP - Last Filed: 05/28/21 14:41> Patient Disposition: Home, Self-Care <April Kang NP - Last Filed: 05/28/21 14:41> Discharge Diagnosis: Covid 19 <April Kang NP - Last Filed: 05/28/21 14:41> Covid 19 <Denny Hussein MD - Last Filed: 05/29/21 07:04> Referrals: Drew Marc MD [Primary Care Provider] - 1 Week <April Kang NP - Last Filed: 05/28/21 14:41> Discharge Medications: New dexamethasone [Decadron] 6 mg tablet 6 mg PO DAILY Qty: 4 RF: 0 Continued cyclobenzaprine 10 mg tablet 10 mg PO TID Qty: 45 RF: 3 ibuprofen 200 mg tablet 400 mg PO TID PRN (Reason: fever or pain) Qty: 270 RF: 1 carvedilol 12.5 mg tablet 25 mg PO QAM Qty: 180 RF: 0 omeprazole 20 mg capsule,delayed release(DR/EC) 20 mg PO BID Qty: 180 RF: 0 quetiapine 50 mg tablet 50 mg PO BEDTIME RF: 0 solifenacin 10 mg tablet 10 mg PO DAILY RF: 0 diltiazem HCl 120 mg capsule,extended release 24hr 120 mg PO DAILY Qty: 30 RF: 0 ergocalciferol (vitamin D2) 1,250 mcg (50,000 unit) capsule 1,250 mcg PO QWEEK RF: 0 oxcarbazepine 300 mg tablet 300 mg PO BID RF: 0 zolpidem 10 mg tablet 10 mg PO BEDTIME PRN (Reason: Sleep) RF: 0 lorazepam 0.5 mg tablet 0.5 mg PO BID PRN (Reason: Anxiety) RF: 0 sertraline 50 mg tablet 75 mg PO BID RF: 0 No Action oxycodone 5 mg tablet 5 mg PO Q8H 5 Days Qty: 15 RF: 0 <April Kang NP - Last Filed: 05/28/21 14:41> Discharge Orders: Discharge Order (Routine); Ordered 05/21/21 Ordered By: April Kang <April Kang NP - Last Filed: 05/28/21 14:41> Diet: advance to usual diet <April Kang NP - Last Filed: 05/28/21 14:41> advance to usual diet <Denny Hussein MD - Last Filed: 05/29/21 07:04> Activity on Discharge: As tolerated <April Kang NP - Last Filed: 05/28/21 14:41> As tolerated <Denny Hussein MD - Last Filed: 05/29/21 07:04> Stand Alone Forms: Patient Portal Discharge page <April Kang NP - Last Filed: 05/28/21 14:41> Care Plan Goals: Complete resolution of covid 19 symptoms <April Kang NP - Last Filed: 05/28/21 14:41> Health Concerns: Covid 19 <April Kang NP - Last Filed: 05/28/21 14:41> Plan of Treatment: Quarantine: According to the Centers for disease control. Persons with COVID-19 who have symptoms and were directed to care for themselves at home may discontinue isolation under the following conditions: -At least 10 days have passed since symptom onset and -At least 24 hours have passed since resolution of fever without the use of fever-reducing medications and -Other symptoms have improved. Safety: Wear a mask Wash your hands or use hand water resource manager before putting on your mask. Wear your mask over your nose and mouth and secure it under your chin. Stay 6 feet away from others Inside your home: Avoid close contact with people who are sick. If possible, maintain 6 feet between the person who is sick and other household members. Outside your home: Put 6 feet of distance between yourself and people who don't live in your household. Remember that some people without symptoms may be able to spread virus. Stay at least 6 feet (about 2 arm lengths) from other people. Keeping distance from others is especially important for people who are at higher risk of getting very sick. Avoid crowds and poorly ventilated spaces Avoid indoor spaces that do not offer fresh air from the outdoors as much as possible. Wash your hands often with soap and water for at least 20 seconds especially after you have been in a public place, or after blowing your nose, coughing, or sneezing. Cover coughs and sneezes Clean high touch surfaces daily. Be alert for symptoms. Watch for fever, cough, shortness of breath, or other symptoms of COVID-19. Follow CDC guidance if symptoms develop. <April Kang NP - Last Filed: 05/28/21 14:41> Assessment: See discharge summary Attending Attestation: I have personally seen and examined the patient independently (on the date of service as documented by NPP), reviewed the NPP history, exam and?MDM and agree with the assessment and plan as?written <April Kang NP - Last Filed: 05/28/21 14:41> Discharge Date/Time: 05/21/21 16:00 <April Kang NP - Last Filed: 05/28/21 14:41>
--- NOTE | 2021-05-21 11:41 | MHC.CM.PN ---
IMM 05/21/21 Female 65 DX Covid She is discharged to home today. A PT eval was performed this am. PT recommends home PT. The patient has declined Homecare services. She will resume MOW. Her nephew is providing transportation home. If she qualifies for home Oxygen, Respiratory will arrange with [facility].
== END 2021-05-21 16:00 | disposition home or self-care (01) | DRG 177 ==
LOC: HO.ED 22:43 → HO.EDOVER 23:00 → HO.IMC 05-16 18:34
PROVIDERS: Hospitalist; Admitting Provider Hospitalist; Emergency Provider Emergency Medicine; PCP Internal Medicine; Visit Provider Nurse Practitioner Acute Care
DX: U07.1 COVID-19 (principal); J12.82 Pneumonia due to coronavirus disease 2019; E78.5 Hyperlipidemia, unspecified; K21.9 Gastro-esophageal reflux disease without esophagitis; F41.9 Anxiety disorder, unspecified; F32.A Depression, unspecified; Z88.5 Allergy status to narcotic agent; Z79.899 Other long term (current) drug therapy
CPT/HCPCS: 0241U; 36415; 71045; 71275; 80048; 80053; 83605; 84484; 85007; 85025; 85027; 87040; 96365; 96367; 97162; 99285; J0456; J0696; J1100; J1650; J2270; J2405; Q9967

== ENCOUNTER 2021-05-22 12:45 | Emergency (ER) | payer MEDICARE, MEDICAID, SELFPAY ==
[2021-05-22 12:58] VITALS: BP 136/81; BP 164/92; PULSE 90; RESP 20; TEMP 36.9; O2SAT 95; O2SAT 99; BMI 35.9
--- NOTE | 2021-05-22 13:04 | ED_ITS ---
HPI - General Adult General Chief complaint: General Medical Stated complaint: BODY PAIN Time Seen by Provider: 05/22/21 13:04 Source: patient and EMS Mode of arrival: EMS Limitations: no limitations History of Present Illness HPI narrative: 65-year-old female with history of multiple sclerosis, osteoarthritis of bilateral knees, chronic low back pain with disc herniation, chronic pain on chronic opiates for several years, depression, SVT, HTN and recent diagnosis of COVID-19 who was just discharged from this hospital yesterday presents back to the ER with complaints of pain all over her body in the setting of not being able to fill her oxycodone prescription. She has been on 5 mg b.i.d. of oxycodone for several years and admits to taking extra doses when her respiratory symptoms from COVID were bad at home. She states she was short of breath and coughing a lot and need to take extra cough medicine because of the pain in her chest. She was discharged yesterday with a prescription for 9 tablets of oxycodone until her PCP can refill her monthly prescription at the beginning of the month. She states her insurance did not authorize a refill so she has not had any in 24 hours. She states from a COVID perspective she feels like she is getting better, her shortness of breath and cough were improving. She was offered short-term rehab but ultimately decided to go home with services. complaint: Pain all over the body Onset (ago): day(s) Radiation: non-radiation Severity: moderate Quality: aching Pain Consistency: constant Relieving factors: medication Exacerbating factors: none Associated symptoms: cough, headaches, malaise and weakness Treatments prior to arrival: none Related Data Home Medications Medication Instructions Recorded Confirmed ergocalciferol (vitamin D2) 1,250 1,250 mcg PO QWEEK 06/05/20 05/16/21 mcg (50,000 unit) capsule lorazepam 0.5 mg tablet 0.5 mg PO BID PRN 06/05/20 05/16/21 oxcarbazepine 300 mg tablet 300 mg PO BID 06/05/20 05/16/21 zolpidem 10 mg tablet 10 mg PO BEDTIME PRN 06/05/20 05/16/21 quetiapine 50 mg tablet 50 mg PO BEDTIME 08/08/20 05/16/21 solifenacin 10 mg tablet 10 mg PO DAILY 01/09/21 05/16/21 sertraline 50 mg tablet 75 mg PO BID tab 05/09/21 05/16/21 Previous Rx's Medication Instructions Recorded cyclobenzaprine 10 mg tablet 10 mg PO TID #45 tab 01/11/21 ibuprofen 200 mg tablet 400 mg PO TID PRN #270 tab 01/11/21 carvedilol 12.5 mg tablet 25 mg PO QAM #180 tab 03/21/21 omeprazole 20 mg capsule,delayed 20 mg PO BID #180 cap 04/27/21 release oxycodone 5 mg tablet 5 mg PO BID #60 tab 04/27/21 diltiazem HCl 120 mg 120 mg PO DAILY #30 cap 05/09/21 capsule,extended release 24 hr dexamethasone 6 mg tablet 6 mg PO DAILY #4 tab 05/21/21 (Decadron) oxycodone 5 mg tablet 5 mg PO BID #9 tab 05/21/21 Allergies Allergy/AdvReac Type Severity Reaction Status Date / Time prochlorperazine [Compazine] Allergy Severe Dystonic Verified 05/09/21 15:00 Reaction cobalt [COBALT] Allergy Intermediate RASH Verified 05/09/21 15:00 hydrocodone [Vicodin] Allergy Intermediate Nausea and Verified 05/09/21 15:00 Vomiting nickel [NICKEL] Allergy Intermediate RASH Verified 05/09/21 15:00 ondansetron [Zofran] Allergy Intermediate Hives Verified 05/09/21 15:00 morphine AdvReac Intermediate Nausea and Verified 05/09/21 15:00 Vomiting Review of Systems Review of Systems: Constitutional: No Fever, No Chills ENT/Mouth: No sore throat, No Rhinorrhea Cardiovascular: No Chest Pain, + SOB Respiratory: + Cough, No Sputum, No Wheezing, No dyspnea Gastrointestinal: No Nausea, No Vomiting, No Diarrhea, No abdominal Pain Musculoskeletal: + joint pain, + Myalgias Skin: No Skin Lesions, No rash Neuro: No Weakness, No Numbness, No Dizziness, + Headache Psych: + Anxiety/Panic, + Depression Heme/Lymph: No Bruising, No Lymphadenopathy PMFSH Past Medical History Medical History Anxiety Arthritis Depression Disc degeneration, lumbar Essential hypertension GERD (gastroesophageal reflux disease) History of confusion History of dysphagia History of kidney problems Hypertension Memory difficulties Multiple sclerosis Osteoarthritis of knees, bilateral Osteoarthritis of right knee Pain syndrome, chronic Paroxysmal SVT (supraventricular tachycardia) Spondylosis of lumbar region without myelopathy or radiculopathy SVT (supraventricular tachycardia) Urgency of micturition Surgical History Deficient knowledge of leg surgery History of appendectomy History of left knee surgery History of myomectomy History of rotator cuff surgery History of surgery on left wrist Hx of hysterectomy Family History Family History Mother Diabetes Kidney failure Father AAA (abdominal aortic aneurysm, ruptured) Family/Other Mental health disorder Substance use disorder Social History Social History Household Members: None Housing: House Are you a primary critical care physician to a significant other at home: No Do you presently have visiting nurse or other home services: No (great nephew lives upstairs and helps. has had VNA and elder care in past) Alcohol intake: current Alcohol intake frequency: holidays/special occasions only Patient Tobacco Use Status: Never used Tobacco e-Cigarette/Vaping Use: Never Used Second Hand Smoke Exposure: No Advance Directives: Yes Advance Directives on File: Yes Advance Directives Date on File: 05/16/21 service: No Current occupational status: retired and disabled Cognitive needs: Yes (walker) Hearing needs: No Vision needs: No Physical Exam Vital Signs: Vital Signs: Last Vital Signs Temp 98.4 F 05/22/21 12:58 Pulse 90 05/22/21 12:58 Resp 20 05/22/21 12:58 BP 136/81 05/22/21 12:58 Pulse Ox 95 05/22/21 12:58 Body Mass Index 35.9 Appearance: Alert. Oriented X3. Anxious. Eyes: Pupils equal, round and reactive to light. ENT: Pharynx normal. Neck: Normal inspection. Neck supple. CVS: Normal heart rate and rhythm. Pulses normal. Respiratory: No respiratory distress. Breath sounds slightly coarse at the bilateral bases no wheezes or rhonchi. Abdomen: Soft and nontender. +BS x4 Skin: Skin warm and dry. Normal skin color. Normal skin turgor. No rashes. Extremities: No lower extremity edema. Neuro: Oriented X 3. Globally weak, anxious. Course Course Course Narrative: 65-year-old female with history of MS and chronic opioid dependency with chronic pain presents to the ER with pain all over her body in the setting of missing the last 2 doses of her oxycodone that she has been on for the last 2 years. On arrival her vital signs are normal. She is in no respiratory distress. She is not tachycardic or hypertensive. Called [facility] on [address] and confirmed there is oxycodone prescription for 9 tablets waiting for her. Insurance did not pay for this because of her previous monthly prescription. They will allow refill but will not be covered by her insurance. Patient will have to pay the co-pay. She is in agreement with this. 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 She will follow-up with her PCP for ongoing narcotic management. She is declining PT assessment for possible short-term rehab. She wants to go home. Critical Care Time Critical Care Time Critical Care Time: No Discharge Plan Discharge Clinical Impression: Pain syndrome, chronic Patient Disposition: Home, Self-Care Instructions: Chronic Pain (ED) Additional Instructions: [facility] was contacted and your pain medication that was sent by the hospital yesterday will be refilled today. You will need to pay the co-pay on this as your insurance will not cover it. Follow-up with your doctor for refill of your usual 30 day supply. The earliest that you can get your 30 day supply covered by your insurance is May 24. If you develop new or worsening symptoms call 911 or come back to the ER for further evaluation. Prescriptions: No Action cyclobenzaprine 10 mg tablet 10 mg PO TID Qty: 45 RF: 3 ibuprofen 200 mg tablet 400 mg PO TID PRN (Reason: fever or pain) Qty: 270 RF: 1 carvedilol 12.5 mg tablet 25 mg PO QAM Qty: 180 RF: 0 oxycodone 5 mg tablet 5 mg PO BID Qty: 60 RF: 0 omeprazole 20 mg capsule,delayed release(DR/EC) 20 mg PO BID Qty: 180 RF: 0 dexamethasone [Decadron] 6 mg tablet 6 mg PO DAILY Qty: 4 RF: 0 oxycodone 5 mg tablet 5 mg PO BID Qty: 9 RF: 0 quetiapine 50 mg tablet 50 mg PO BEDTIME RF: 0 solifenacin 10 mg tablet 10 mg PO DAILY RF: 0 diltiazem HCl 120 mg capsule,extended release 24hr 120 mg PO DAILY Qty: 30 RF: 0 ergocalciferol (vitamin D2) 1,250 mcg (50,000 unit) capsule 1,250 mcg PO QWEEK RF: 0 oxcarbazepine 300 mg tablet 300 mg PO BID RF: 0 zolpidem 10 mg tablet 10 mg PO BEDTIME PRN (Reason: Sleep) RF: 0 lorazepam 0.5 mg tablet 0.5 mg PO BID PRN (Reason: Anxiety) RF: 0 sertraline 50 mg tablet 75 mg PO BID RF: 0 Interventions: ED Discharge Assessment Last Done: 05/22/21 14:47 Discharge Date/Time: 05/22/21 14:47
[2021-05-22] MEDS: oxyCODONE HCl Immed Release 5 MG TABLET PO (14:01)
== END 2021-05-22 14:47 | disposition home or self-care (01) ==
PROVIDERS: Emergency Provider Emergency Medicine Emergency Medical Services; PCP Internal Medicine
DX: G89.4 Chronic pain syndrome (principal); Z76.0 Encounter for issue of repeat prescription; G35 Multiple sclerosis; Z79.891 Long term (current) use of opiate analgesic; Z86.16 Personal history of COVID-19
CPT/HCPCS: 99283

== ENCOUNTER 2021-09-21 14:47 | Outpatient (REF) | payer MEDICARE, MEDICAID, SELFPAY ==
[2021-09-21 15:12] LABS: MANUAL DIFF FLAG NO
[2021-09-21 15:34] LABS: Basophils Absolute Auto 0.1 X10*3/uL (0.0-0.2); Basophils Percent Auto 0.5 % (0-2); Eosinophils Absolute Auto 0.3 X10*3/uL (0.0-0.4); Eosinophils Percent Auto 2.8 % (0-4); Hematocrit 38.3 % (37.0-47.0); Imm Gran Abs Auto 0.08 X10*3/uL (0.00-0.03); Imm Gran Pct Auto 0.7 % (0.0-0.4); Lymphocytes Absolute Auto 3.3 X10*3/uL (1.2-4.9); Lymphocytes Percent Auto 30.2 % (20-40); Mean Corpuscular HGB Conc 33.9 g/dl (31.0-35.0); Mean Corpuscular Hemoglobin 29.4 pg (27.0-33.0); Mean Corpuscular Volume 86.7 fL (80.0-98.0); Mean Platelet Volume 9.3 fL (9.4-12.3); Monocytes Absolute Auto 0.8 X10*3/uL (0.1-1.2); Monocytes Percent Auto 6.9 % (2-11); Neutrophils Absolute Auto 6.5 x10*3/uL (2.0-8.3); Neutrophils Percent Auto 58.9 % (45-73); Platelet Count 225 X10*3/uL (160-400); Red Blood Count 4.42 X10*6/uL (4.20-5.50); Red Cell Distribution Width 12.9 % (11.0-16.0)
[2021-09-21 15:52] LABS: Alanine Aminotransferase 37 U/L (0-31); Albumin Level 4.5 g/dL (3.5-5.0); Alkaline Phosphatase 86 U/L (39-117); Aspartate Amino Transferase 31 U/L (5-31); Bilirubin Direct 0.2 mg/dL (0.0-0.5); Bilirubin Total 0.4 mg/dL (0.0-1.0); Blood Urea Nitrogen 12 mg/dL (9-16); Estimated Glomerular Filt Rate 41; Total Protein 7.1 g/dL (6.5-8.0)
[2021-09-22 13:51] LABS: IgA 126 mg/dL (70-320); IgG 697 mg/dL (600-1540); IgM 194 mg/dL (50-300)
== END 2021-09-21 14:48 | disposition home or self-care (01) ==
LOC: HO.LAB 14:47
PROVIDERS: PCP Internal Medicine; Visit Provider Physician Assistant
DX: G35 Multiple sclerosis (principal)
CPT/HCPCS: 36415; 80076; 82565; 82784; 84520; 85025

== ENCOUNTER → 2021-09-26 15:05 | Outpatient (BNVA) | payer MEDICARE, MEDICAID, SELFPAY | PROVIDERS: PCP Internal Medicine; Referring Provider Internal Medicine; Visit Provider Internal Medicine | DX: R07.2 Precordial pain (principal); I47.1 Supraventricular tachycardia; I10 Essential (primary) hypertension; R06.02 Shortness of breath; R42 Dizziness and giddiness | CPT/HCPCS: 99212 ==

== ENCOUNTER → 2021-11-22 10:06 | Outpatient (BNVA) | payer MEDICARE, MEDICAID, SELFPAY | PROVIDERS: PCP Internal Medicine; Visit Provider Nurse Practitioner Family | DX: G89.4 Chronic pain syndrome (principal); M51.36 Other intervertebral disc degeneration, lumbar region; M17.0 Bilateral primary osteoarthritis of knee; M25.561 Pain in right knee; M25.562 Pain in left knee; G35 Multiple sclerosis | CPT/HCPCS: 99212 ==

== ENCOUNTER 2021-12-05 13:20 | Outpatient (REF) | payer MEDICARE, MEDICAID, SELFPAY ==
--- NOTE | ~2021-12-05 | MR_ITS ---
EXAMINATION: MR LUMBAR SPINE WITHOUT CONTRAST CLINICAL INFORMATION: Multiple sclerosis. The patient states back pain and leg pain and weakness. COMPARISON: CT scan of the abdomen and pelvis 11/26/2017. TECHNIQUE: MRI of the lumbar spine was obtained using routine sequences without contrast. FINDINGS: VERTEBRAL BODIES AND PARASPINAL STRUCTURES: There is a 5 mm grade 1 anterolisthesis of L4 on L5, and there is a mild retrolisthesis of L5 on S1. These were demonstrated on prior there are mild retrolistheses of L1 on L2 and L2 on L3. There is multilevel narrowing of intervertebral disc height which is most severe at L4-L5. There is disc desiccation at multiple levels. There are degenerative endplate contour changes with Schmorl's nodes at adjacent endplates at multiple levels in the lumbar spine and lower thoracic spine. There are fatty endplate signal changes at multiple levels, most extensive at L4-L5 and L5-S1. Mild edematous signal changes are seen at T11-T12 anteriorly and toward the right at L4-L5 laterally. Vertebral body heights are maintained, and no fractures are demonstrated. Overall, marrow signal is homogenous. There is a retroaortic left renal vein. The visualized pelvic structures are unremarkable. CONUS MEDULLARIS AND CAUDA EQUINA: Normal, terminating at the level of L1. The lower thoracic spinal cord appears normal. The cauda equina nerve roots and filum terminale appear normal. SPINAL LEVELS: T11-T12: There is mild bilateral facet arthropathy. There is a small posterior disc protrusion. There is no central stenosis or compression of the lower thoracic spinal cord. The neural foramina are patent bilaterally. T12-L1: There is mild bilateral facet arthropathy. There is a posterior disc protrusion with no significant mass effect on the thecal sac. The neural foramina are patent. There is no central stenosis. L1-L2: There is mild to moderate bilateral facet arthropathy with ligamenta flava hypertrophy and facet joint effusions. There is a shallow posterior disc protrusion, with minimal flattening of the ventral thecal sac. There is no central stenosis and the neural foramina are patent bilaterally. L2-L3: There is mild to moderate bilateral facet arthropathy with ligamenta flava hypertrophy and facet joint effusions. There is a posterior disc protrusion extending into the right greater than left neural foramina, but without definite exiting nerve root impingement. There is no central stenosis. L3-L4: There is moderate to severe left and moderate right facet arthropathy. There is a posterior disc protrusion extending far laterally on the right with impingement on the extraforaminal right L3 nerve root. A smaller protrusion is seen in the left neural foramen without definite exiting nerve root impingement. There is mild narrowing of the subarticular recesses. There is no central stenosis. L4-L5: There is markedly severe bilateral facet arthropathy. There is unroofing of the disc as a result of the anterolisthesis. There are bilateral foraminal disc protrusions with impingement on the exiting L4 nerve roots bilaterally. There is narrowing of the bilateral subarticular recesses and there is moderate to severe central stenosis. L5-S1: There is moderate to severe bilateral facet arthropathy. There is a posterior disc protrusion extending into the right greater than left neural foramina with impingement on the exiting right L5 nerve root. There is mild ventral epidural lipomatosis. There is mild central stenosis. MR/MR lumbar spine wo con IMPRESSION: 1. There is a grade 1 anterolisthesis of L4 on L5 secondary to markedly severe bilateral facet arthropathy. There are bilateral foraminal disc protrusions impinging on the exiting L4 nerve roots, and there is narrowing of the bilateral subarticular recesses with moderate to severe central stenosis. 2. At L3-L4 there is facet arthropathy and there is a posterior disc protrusion extending far laterally on the right with impingement on the extra foraminal right L3 nerve root. There is no central stenosis. 3. At L5-S1 there is facet arthropathy. There is a posterior disc protrusion extending into the neural foramina with impingement on the exiting right L5 nerve root. There is mild central stenosis.
== END 2021-12-05 13:21 | disposition home or self-care (01) ==
LOC: HO.MRI 13:20
PROVIDERS: Visit Provider Nurse Practitioner Family
DX: G35 Multiple sclerosis (principal); M47.816 Spondylosis without myelopathy or radiculopathy, lumbar region; M51.36 Other intervertebral disc degeneration, lumbar region
CPT/HCPCS: 72148

== ENCOUNTER 2022-04-25 16:05 | Outpatient (REF) | payer MEDICARE, MEDICAID, SELFPAY ==
--- NOTE | ~2022-04-25 | CT_ITS ---
EXAMINATION: CT ABDOMEN AND PELVIS WITHOUT AND WITH CONTRAST CLINICAL INFORMATION: Microscopic hematuria COMPARISON: Previous renal ultrasound September [address] of the abdomen and pelvis December 2017 TECHNIQUE: Multidetector volumetric imaging was performed of the abdomen and pelvis before and after the IV administration of 80 mL of Omnipaque 350 intravenous contrast. Sagittal and coronal reformatted images were obtained on the technologist's workstation. This CT examination was performed using dose optimization techniques as appropriate, variously including the following: *Automated exposure control *Adjustment of mA and/or kV according to patient size (this includes techniques or standardized protocols for targeted exams where dose is matched to indication/reason for exam; i.e. extremities or head) *Use of iterative reconstruction technique DLP: 1171 mGy-cm FINDINGS: LUNG BASES: The visualized lung bases are unremarkable. LIVER, GALLBLADDER, AND BILIARY TREE: The liver is normal in size and shape. The liver is low in attenuation suggestive of fatty infiltration. No focal hepatic lesion or biliary ductal dilatation is present. The gallbladder is unremarkable with no evidence of radiopaque gallstones, gallbladder wall thickening, or obvious pericholecystic inflammatory changes. PANCREAS: There is fatty infiltration of the pancreas. Pancreas is otherwise unremarkable. SPLEEN: Unremarkable ADRENAL GLANDS: Unremarkable KIDNEYS AND URETERS: The kidneys are normal in size, shape, and attenuation. There is a small 7 mm low-attenuation lesion in the posterior mid pole of the left kidney. The kidneys are otherwise normal. No hydronephrosis, hydroureter, or calculi seen. No perinephric stranding. The collecting systems are normal. The ureters are normal. BLADDER: Not optimally distended and not well evaluated. GASTROINTESTINAL TRACT: The small and large bowel are unremarkable. The appendix is not seen. ABDOMINAL WALL: Small right inguinal hernia containing fat. LYMPH NODES: Normal VASCULAR: Atherosclerotic disease. No aneurysm. PELVIC VISCERA: The uterus appears to have been removed. No pelvic mass. OSSEOUS STRUCTURES: Osteopenia. Mild retrolisthesis of L5 with respect to L4 and S1. Degenerative changes of the spine and hip joints. CT/CT abdomen pelvis wo/w IV con IMPRESSION: Small left renal cyst. Otherwise normal-appearing kidneys. Collecting systems and ureters are normal. Bladder not optimally distended and not well evaluated. Fleischner guidelines were followed.
[2022-04-25] MEDS: iohexoL 350 MG/ML 100 ML INFUS..BTL IV (16:59)
[2022-04-26 08:07] LABS: Creatinine POC 1.4 mg/dL (0.5-1.4); GFR POC 39
== END 2022-04-25 16:06 | disposition home or self-care (01) ==
LOC: HO.CT 16:05
PROVIDERS: PCP Internal Medicine; Visit Provider Urology
DX: R31.29 Other microscopic hematuria (principal)
CPT/HCPCS: 74178; 82565; Q9967

== ENCOUNTER 2022-06-27 15:28 | Outpatient (REF) | payer MEDICARE, SELFPAY ==
[2022-06-27 15:50] LABS: MANUAL DIFF FLAG NO
[2022-06-27 16:13] LABS: Basophils Absolute Auto 0.1 X10*3/uL (0.0-0.2); Basophils Percent Auto 0.6 % (0-2); Eosinophils Absolute Auto 0.3 X10*3/uL (0.0-0.4); Eosinophils Percent Auto 2.9 % (0-4); Hematocrit 37.7 % (37.0-47.0); Hemoglobin 12.9 g/dl (12.0-16.0); Imm Gran Abs Auto 0.07 X10*3/uL (0.00-0.03); Imm Gran Pct Auto 0.8 % (0.0-0.4); Lymphocytes Absolute Auto 2.7 X10*3/uL (1.2-4.9); Lymphocytes Percent Auto 30.3 % (20-40); Mean Corpuscular HGB Conc 34.2 g/dl (31.0-35.0); Mean Corpuscular Hemoglobin 30.7 pg (27.0-33.0); Mean Corpuscular Volume 89.8 fL (80.0-98.0); Mean Platelet Volume 9.5 fL (9.4-12.3); Monocytes Absolute Auto 0.6 X10*3/uL (0.1-1.2); Monocytes Percent Auto 6.6 % (2-11); Neutrophils Absolute Auto 5.3 x10*3/uL (2.0-8.3); Neutrophils Percent Auto 58.8 % (45-73); Platelet Count 185 X10*3/uL (160-400); Red Cell Distribution Width 13.6 % (11.0-16.0); White Blood Count 8.9 X10*3/uL (4.8-10.8)
[2022-06-27 16:50] LABS: Alanine Aminotransferase 41 U/L (0-31); Albumin Level 4.3 g/dL (3.5-5.0); Alkaline Phosphatase 80 U/L (39-117); Aspartate Amino Transferase 44 U/L (5-31); Bilirubin Direct < 0.2 mg/dL (0.0-0.5); Bilirubin Total 0.3 mg/dL (0.0-1.0); Blood Urea Nitrogen 24 mg/dL (9-16); Estimated Glomerular Filt Rate 50; Total Protein 6.6 g/dL (6.5-8.0)
[2022-06-29 15:33] LABS: IgA 122 mg/dL (70-320); IgG 595 mg/dL (600-1540); IgM 162 mg/dL (50-300)
== END 2022-06-27 15:29 | disposition home or self-care (01) ==
LOC: HO.LAB 15:28
PROVIDERS: PCP Internal Medicine; Visit Provider Physician Assistant
DX: G35 Multiple sclerosis (principal); Z79.899 Other long term (current) drug therapy
CPT/HCPCS: 36415; 80076; 82565; 82784; 84520; 85025

== ENCOUNTER 2023-01-15 10:21 | Outpatient (AMB) | payer MEDICARE, SELFPAY ==
--- NOTE | 2023-01-15 10:12 | MHC.PC.OV ---
Vital Signs 01/15/23 10:13 Height 5 ft 5 in BP 138/74 Pulse 80 Pulse Source Pulse Oximeter Intake Visit Reasons: Weakness/ Difficulty Walking [phone] Intake Note: Patient is here to follow up on SVT, Chronic Pain syndrome. Shrimp Trawler Captain Required: No Monkey Keeper: Not Required per policy Accompanied by: Self / Same As Patient Allergies prochlorperazine [Compazine] Allergy (Severe, Verified 01/15/23 13:51) Dystonic Reaction cobalt [COBALT] Allergy (Intermediate, Verified 01/15/23 13:51) RASH hydrocodone [Vicodin] Allergy (Intermediate, Verified 01/15/23 13:51) Nausea and Vomiting nickel [NICKEL] Allergy (Intermediate, Verified 01/15/23 13:51) RASH ondansetron [Zofran] Allergy (Intermediate, Verified 01/15/23 13:51) Hives morphine Adverse Reaction (Intermediate, Verified 01/15/23 13:51) Nausea and Vomiting Medication List - Last Reconciled 01/15/23 by Drew Marc MD cyclobenzaprine 10 mg PO TID diclofenac-capsaicin 1.5-0.025 % apply 40 drops DICLOFENAC onto knee 4 times daily: apply CAPSAICIN CREAM 3-4 times daily/as directed topical; diltiazem HCl 120 mg PO DAILY 90 days ergocalciferol (vitamin D2) 1,250 mcg PO QWEEK ibuprofen 400 mg (2 x 200 mg) PO TID PRN lorazepam 0.5 mg PO BID PRN metoprolol tartrate 25 mg PO BID omeprazole 20 mg PO BID oxcarbazepine 300 mg PO BID oxycodone 5 mg PO BID 30 days quetiapine 50 mg PO BEDTIME sertraline 200 mg PO DAILY vibegron (Gemtesa) 75 mg PO DAILY zolpidem 10 mg PO BEDTIME PRN Tobacco use date assessed: 07/12/21 Dental Screening Dental Screen Date: 01/15/23 Did you have a dental visit in the last 12 months?: Yes Did you have a dental problem in the last 6 months where you did not have access to dental care?: No Was dental information given to patient?: Patient has dentist HPI Weakness/ Difficulty Walking [phone] HPI Details 67-year-old female wishes to discuss her medical health via tele health. Since last office visit patient has had multiple visits to other doctors. Multiple sclerosis: Patient reports that she is now wheelchair bound. She has a broken tooth and is anticipating dental work and antibiotic use. Therefore she decided not to get her latest infusion of Ocrevus. Feeling weak and tired. Urinary issues: Since last office visit, patient underwent a cystoscopy for evaluation of hematuria. The procedure has left her incontinent to urine. She is not trying different medications for bladder control. Following up with a urologist. This is also making her depressed. Chronic pain: In addition to above, patient also believes she may have fibromyalgia. The oxycodone is barely controlling her symptoms. [facility] Medical History (Updated 01/16/23 @ 05:52 by Drew Marc MD) Anxiety Anxiety Anxiety Arthritis COVID-19 Depression Disc degeneration, lumbar Essential hypertension GERD (gastroesophageal reflux disease) History of confusion History of dysphagia History of kidney problems Hypertension Memory difficulties Multiple sclerosis Osteoarthritis of knees, bilateral Osteoarthritis of right knee Pain syndrome, chronic Paroxysmal SVT (supraventricular tachycardia) Spondylosis of lumbar region without myelopathy or radiculopathy SVT (supraventricular tachycardia) Urgency of micturition Urinary incontinence Surgical History Deficient knowledge of leg surgery History of appendectomy History of left knee surgery History of myomectomy History of rotator cuff surgery History of surgery on left wrist Hx of hysterectomy Family History Mother Diabetes Kidney failure Father AAA (abdominal aortic aneurysm, ruptured) Family/Other Mental health disorder Substance use disorder Social History Household Members: None Housing: House Are you a primary district manager primary care sales to a significant other at home: No Do you presently have visiting nurse or other home services: No (great nephew lives upstairs and helps. has had VNA and elder care in past) Alcohol intake: current Alcohol intake frequency: holidays/special occasions only Patient Tobacco Use Status: Never used Tobacco e-Cigarette/Vaping Use: Never Used Second Hand Smoke Exposure: No Advance Directives Date on File: 05/16/21 service: No Current occupational status: retired and disabled Cognitive needs: Yes (walker) Hearing needs: No Vision needs: Yes (glasses) Questionnaire Thrive Questionnaire Date Thrive assessed: 07/12/21 ARNAUD-7 AMB Questionnaire ARNAUD-7 Date ARNAUD - 7 assessed: 07/12/21 Source: Developed by Drs. Dewey Angel, Cherie Mei, Dilan Giordano and colleagues, with an educational domingo from [email or web address]. Review of Systems Eyes Denies blurry vision ENT Denies sore throat and Denies throat swelling Card Denies chest pain, Denies edema and Denies dyspnea Resp Denies chest congestion and Denies dyspnea GI Denies belching and Denies melena Musc Reports as per HPI Aller/Immun Denies throat swelling Physical exam (Primary Care) Vital Signs: Last Vital Signs Pulse 80 01/15/23 10:13 BP 138/74 01/15/23 10:13 Tobacco/Smoking Status: Tobacco use Status Tobacco use date assessed 07/12/21 01/15/23 10:20 Patient Tobacco Use Status Never used Tobacco 01/15/23 10:20 e-Cigarette/Vaping Use Never Used 01/15/23 10:20 Thrive Assessment: Date of Thrive Assessment Date Thrive assessed 07/12/21 01/15/23 10:20 Telehealth Telehealth Location of provider rendering services: practice address Location of patient: address on file Patient Identification confirmed using: Name, : Yes Telehealth method: voice only Patient verbally consented to treatment: Yes Patient verbally consented to billing insurance company: Yes Patient informed of any privacy concerns related to visit: Yes Minutes spent on Phone/Video with Pt.: 20 Assessment and Plan Assessment & Plan (1) Multiple sclerosis: Comment: [facility] Code(s): G35 - Multiple sclerosis Plan: I encourage patient to get her infusion. She still is not set up for title appointments which may take a few months. Patient is agreed to follow-up with Neurology. (2) SVT (supraventricular tachycardia): Code(s): I47.1 - Supraventricular tachycardia Plan: Condition is stable. Continue current medications. (3) Anxiety: Code(s): F41.9 - Anxiety disorder, unspecified Plan: Patient has complex medical condition and less help at home. I will encourage the patient to see a therapist. (4) Chronic idiopathic pain syndrome: Code(s): G89.29 - Other chronic pain Plan: Continue her oxycodone at twice a day. (5) Urinary incontinence: Code(s): R32 - Unspecified urinary incontinence Plan: Follow-up with the urologist and continue medications as prescribed by them. Coding Level of Care Code Tele Est Pt Level 4 (96850) Diagnoses Multiple sclerosis G35 SVT (supraventricular tachycardia) I47.1 Anxiety F41.9 Chronic idiopathic pain syndrome G89.29 Urinary incontinence R32
[2023-01-15 10:13] VITALS: BP 138/74; PULSE 80
== END 2023-01-15 11:07 | disposition home or self-care (01) ==
LOC: HO.HMGH 10:21
PROVIDERS: PCP Internal Medicine; Visit Provider Internal Medicine
DX: G35 Multiple sclerosis (principal); I47.1 Supraventricular tachycardia; F41.9 Anxiety disorder, unspecified; G89.29 Other chronic pain; R32 Unspecified urinary incontinence
CPT/HCPCS: G2252

== ENCOUNTER 2023-06-17 15:55 | Outpatient (REF) | payer MEDICARE, MEDICAID, SELFPAY ==
[2023-06-17] MEDS: gadobutroL 10 ML VIAL IVPUSH (17:14)
== END 2023-06-17 15:56 | disposition home or self-care (01) ==
LOC: HO.MRI 15:55
PROVIDERS: PCP Internal Medicine; Visit Provider Physician Assistant
DX: G35 Multiple sclerosis (principal)
CPT/HCPCS: 70553; 72156; A9585

== ENCOUNTER 2023-06-19 15:55 | Outpatient (REF) | payer MEDICARE, MEDICAID, SELFPAY ==
[2023-06-19] MEDS: gadobutroL 10 ML VIAL IVPUSH (16:51)
== END 2023-06-19 15:56 | disposition home or self-care (01) ==
LOC: HO.MRI 15:55
PROVIDERS: PCP Internal Medicine; Visit Provider Physician Assistant
DX: G35 Multiple sclerosis (principal)
CPT/HCPCS: 72157; A9585

== ENCOUNTER 2023-07-25 16:07 | Outpatient (AMB) | payer MEDICARE, SELFPAY ==
[2023-07-25 16:14] VITALS: BP 146/90; PULSE 75; O2SAT 95; BMI 31.6
--- NOTE | 2023-07-25 16:14 | HO.NEPHOV_ITS ---
HPI HPI Comments History of Present Illness Details I had the pleasure of seeing Sarah in follow-up of her hypertension and history of hyponatremia. She has multiple sclerosis and has been having challenges from it lately. She has not gotten her last infusion of Ocrevus. She has been feeling weak and tired. He has been having urinary issues and has seen a urologist. She underwent a cystoscopy for evaluation of hematuria. Now she has incontinence of urine. She was wondering whether Botox will help with that. She is not trying different medications for bladder control.This is also making her depressed. She has chronic pain and patient also believes she may have fibromyalgia. oxycodone is barely controlling her symptoms. She avoids nonsteroidal anti-inflammatories. She has history of SVT and is followed by Cardiology which she thinks is under good control on current medication regimen which is also helping with her blood pressure. Her serum creatinine has been labile but stable. He also has been having tooth issues for which she is working with a dentist .she takes diltiazem as well as metoprolol. She is also struggling with lack of proper support system for her, even though her nephew tries to help the best he can. Her mentation has been at baseline but she thinks she is forgetting lot more than before. [facility] Medical History (Updated 07/28/23 @ 19:56 by Kayode Godoy MD) Urinary incontinence Anxiety Anxiety COVID-19 Osteoarthritis of right knee Essential hypertension SVT (supraventricular tachycardia) Depression History of kidney problems Paroxysmal SVT (supraventricular tachycardia) History of confusion Urgency of micturition Memory difficulties Arthritis History of dysphagia Multiple sclerosis GERD (gastroesophageal reflux disease) Anxiety Hypertension Pain syndrome, chronic Disc degeneration, lumbar 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, bilateral Surgical History Hx of hysterectomy History of surgery on left wrist Deficient knowledge of leg surgery History of rotator cuff surgery History of left knee surgery History of myomectomy History of appendectomy Family History Mother Diabetes Kidney failure Father AAA (abdominal aortic aneurysm, ruptured) Family/Other Mental health disorder Substance use disorder Social History Household Members: None Housing: House Are you a primary healthcare business analyst to a significant other at home: No Do you presently have visiting nurse or other home services: No (great nephew lives upstairs and helps. has had VNA and elder care in past) Alcohol intake: current Alcohol intake frequency: holidays/special occasions only Comment: Tolerable right knee pain per pt. Patient Tobacco Use Status: Never used Tobacco e-Cigarette/Vaping Use: Never Used Second Hand Smoke Exposure: No Advance Directives Date on File: 05/16/21 service: No Current occupational status: retired and disabled Cognitive needs: Yes (walker) Hearing needs: No Vision needs: Yes (glasses) Vital Signs 07/25/23 16:14 Height 5 ft 5 in Weight 190 lb BMI 31.6 BP 146/90 H Blood Pressure Location Rt brachial Position Sitting Pulse 75 Pulse Source Pulse Oximeter Pulse Oximetry (%) 95 Oxygen Delivery Method Room Air Physical Exam Vital Signs: Last Vital Signs Pulse 75 07/25/23 16:14 BP 146/90 H 07/25/23 16:14 Pulse Ox 95 07/25/23 16:14 Oxygen Delivery Method Room Air 07/25/23 16:14 BMI result Body Mass Index 31.6 Const General: comfortable and no acute distress Orientation/consciousness: patient oriented x3 HEENT Head: Yes normocephalic Mouth: Normal oral and palatal mucosa present Eyes EOM: EOMs intact bilaterally Neck Neck: Yes supple Resp Auscultation: clear to auscultation bilaterally Cardio Jugular venous distension: no JVD Rate: regular rate GI Palpation (GI): Soft to palpation Auscultation: normal bowel sounds General: Yes no CVA tenderness Back/Spine/Pelvis Back: no CVA tenderness Skin General skin exam: no rashes or lesions noted Neuro General: patient oriented x3 and moves all extremities Assessment & Plan Assessment & Plan (1) CKD (chronic kidney disease) stage 2, GFR 60-89 ml/min: Code(s): N18.2 - Chronic kidney disease, stage 2 (mild) (2) Hypertension: Code(s): I10 - Essential (primary) hypertension Qualifiers: Hypertension type: primary hypertension Qualified Code(s): I10 - Essential (primary) hypertension Plan She always had been at risk for excess ADH. Her serum sodium has been stable. Her blood pressure has been at goal on current medication regimen. Sometimes diltiazem is giving her some edema. She has not known to have any proteinuria. Her renal functions have been stable. She also follows up with urologist for her history of hematuria and incontinence. She is going to get a Botox for her bladder issues. I did not make any medication changes today. All her concerns were addressed and questions were answered. Follow-up lab work ordered. Follow-up appointment given. Orders: Orders Blood Urea Nitrogen 07/25/23 I10 - Essential (primary) hypertension, N18.2 - Chronic kidney disease, stage 2 (mild) Electrolytes 07/25/23 I10 - Essential (primary) hypertension, N18.2 - Chronic kidney disease, stage 2 (mild) Creatinine 07/25/23 I10 - Essential (primary) hypertension, N18.2 - Chronic kidney disease, stage 2 (mild) Coding Level of Care Code Est Pt Level 4 (79334) Diagnoses CKD (chronic kidney disease) stage 2, GFR 60-89 ml/min N18.2 Primary hypertension I10 Hypertension type: primary hypertension Results Reviewed Nephrology Results: Hgb 12.9 g/dl (12.0-16.0) 06/27/22 WBC 8.9 X10*3/uL (4.8-10.8) 06/27/22 Plt Count 185 X10*3/uL (160-400) 06/27/22 BUN 24 mg/dL (9-16) H 06/27/22 Creatinine 1.09 mg/dL (0.5-1.4) 06/27/22
== END 2023-07-25 16:58 | disposition home or self-care (01) ==
PROVIDERS: PCP Internal Medicine; Referring Provider Internal Medicine; Visit Provider Internal Medicine Nephrology
DX: I12.9 Hypertensive chronic kidney disease with stage 1 through stage 4 chronic kidney disease, or unspecified chronic kidney disease (principal); N18.2 Chronic kidney disease, stage 2 (mild)
CPT/HCPCS: 99214

== ENCOUNTER → 2023-07-25 16:07 | Outpatient (BNVA) | payer MEDICARE, SELFPAY | PROVIDERS: PCP Internal Medicine; Visit Provider Internal Medicine Nephrology | DX: I12.9 Hypertensive chronic kidney disease with stage 1 through stage 4 chronic kidney disease, or unspecified chronic kidney disease (principal); N18.2 Chronic kidney disease, stage 2 (mild) | CPT/HCPCS: 99212 ==

== ENCOUNTER 2023-10-09 13:39 | Outpatient (AMB) | payer MEDICARE, MEDICAID, SELFPAY ==
--- NOTE | 2023-10-09 13:40 | A.OFFPC_ITS ---
Vital Signs 10/09/23 13:42 Height 5 ft 5 in Weight 222 lb 3.615 oz BMI 37.0 BP 120/68 Blood Pressure Location Lt brachial Position Sitting Pulse 70 Pulse Source Pulse Oximeter Pulse Oximetry (%) 96 Oxygen Delivery Method Room Air Intake Visit Reasons: Pain med Intake Note: Patient is here to follow up on MS, Medication refill. Frozen Food Department Manager Required: No Head Bander And Liner Operator: Present Accompanied by: Nephew or Niece Allergies prochlorperazine [Compazine] Allergy (Severe, Verified 10/15/23 07:51) Dystonic Reaction cobalt [COBALT] Allergy (Intermediate, Verified 10/15/23 07:51) RASH hydrocodone [Vicodin] Allergy (Intermediate, Verified 10/15/23 07:51) Nausea and Vomiting nickel [NICKEL] Allergy (Intermediate, Verified 10/15/23 07:51) RASH ondansetron [Zofran] Allergy (Intermediate, Verified 10/15/23 07:51) Hives morphine Adverse Reaction (Intermediate, Verified 10/15/23 07:51) Nausea and Vomiting Medication List - Last Reconciled 10/15/23 by Drew Marc MD baclofen 10 mg PO BID diltiazem HCl CD 120 mg PO DAILY ergocalciferol (vitamin D2) 1,250 mcg PO QWEEK ibuprofen 400 mg (2 x 200 mg) PO TID PRN lorazepam 0.5 mg PO BID PRN metoprolol tartrate 25 mg PO BID ocrelizumab (Ocrevus) 600 mg IV [id number] omeprazole 20 mg PO BID oxcarbazepine 450 mg PO BID oxycodone 5 mg PO BID 30 days quetiapine 50 mg PO BEDTIME sertraline 200 mg PO DAILY solifenacin (Vesicare) 10 mg PO DAILY zolpidem 10 mg PO BEDTIME PRN Tobacco use date assessed: 10/09/23 Fall risk assessment: No Falls in past year Last assessed Fall Risk: 10/09/23 Dental Screening Dental Screen Date: 10/09/23 Did you have a dental visit in the last 12 months?: No Did you have a dental problem in the last 6 months where you did not have access to dental care?: No Was dental information given to patient?: No HPI Pain med HPI Details 68 yr old female presents to the office to discuss her chronic medical conditions. She comes to the clinic in a wheel chair accompanied by her nephew. Pt reports her MS symptoms are worsening. Her Ocrevus infusion was discontinued for a variety of reasons. SHe has not been on them since July. Her insurance has finally agreed to pay for the infusions. Meanwhile her urinary incontinence has worsened and she is now scheduled to get the botox injections strengther the bladder. Her cognitive functions are declining and reports short term memory loss. Continues to have low back pain and is using the opiods as directed. The opiods improve her quality of life. Her chronic kidney disease has been stable. She has missing teeth in the front due to worsening tooth decay. COUNTS INCLUDE 234 BEDS AT THE [facility] Medical History Urinary incontinence Anxiety Anxiety COVID-19 Osteoarthritis of right knee Essential hypertension SVT (supraventricular tachycardia) Depression History of kidney problems Paroxysmal SVT (supraventricular tachycardia) History of confusion Urgency of micturition Memory difficulties Arthritis History of dysphagia Multiple sclerosis GERD (gastroesophageal reflux disease) Anxiety Hypertension Pain syndrome, chronic Disc degeneration, lumbar 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, bilateral Surgical History Hx of hysterectomy History of surgery on left wrist Deficient knowledge of leg surgery History of rotator cuff surgery History of left knee surgery History of myomectomy History of appendectomy Family History Mother Diabetes Kidney failure Father AAA (abdominal aortic aneurysm, ruptured) Family/Other Mental health disorder Substance use disorder Social History Household Members: None Housing: House Are you a primary continuum of care manager to a significant other at home: No Do you presently have visiting nurse or other home services: No (great nephew lives upstairs and helps. has had VNA and elder care in past) Alcohol intake: current Alcohol intake frequency: holidays/special occasions on ly Comment: Tolerable right knee pain per pt. Patient Tobacco Use Status: Never used Tobacco e-Cigarette/Vaping Use: Never Used Second Hand Smoke Exposure: No Advance Directives Date on File: 05/16/21 service: No Current occupational status: retired and disabled Cognitive needs: Yes (walker) Hearing needs: No Vision needs: Yes (glasses) Questionnaire PHQ-9 Over the last 2 weeks, how often have you been bothered by any of the following problems? 1. Little interest or pleasure in doing things: nearly every day 2. Feeling down, depressed, or hopeless: nearly every day 3. Trouble falling or staying asleep, or sleeping too much: several days 4. Feeling tired or having little energy: nearly every day 5. Poor appetite or overeating: not at all 6. Feeling bad about yourself - or that you are a failure or have let yourself or your family down: not at all 7. Trouble concentrating on things, such as reading the newspaper or watching television: several days 8. Moving or speaking so slowly that other people could have noticed. Or the opposite - being so fidgety or restless that you have been moving around a lot more than usual: more than half the days 9. Thoughts that you would be better off or of hurting yourself in some way: not at all Total score: 13 Depression Screening Interpretation: Positive Depression Screening Done: Yes Source: Developed by Drs. Dewey Angel, Cherie Mei, Dilan Giordano and colleagues, with an educational domingo from [employer]. Thrive Questionnaire Date Thrive assessed: 10/09/23 I am a: Patient What is your living situation today?: I have a steady place to live Within the past 12 months, did the food you bought not last and you didn't have the money to get more?: Never true Within the past 12 months, did you worry whether your food would run out before you got money to buy more?: Never true Do you have trouble paying for medicines?: No Do you have trouble getting transportation to medical appointments?: No Do you have trouble paying your heating and electricity bill?: No Do you have trouble taking care of your child, family member or friend?: No Do you have trouble with day-to-day activities such as bathing, preparing meals, shopping, managing finances, etc.?: No Are you currently unemployed and looking for a job?: No Are you interested in more education?: No Currently or been in a relationship where the following occur: no concerns reported THRIVE Score: 0 AUDIT C Alcohol Use Questionnaire (AUDIT-C) 1. How often do you have a drink containing alcohol?: Never Total Score: 0 ARNAUD-7 AMB Questionnaire ARNAUD-7 Date ARNAUD - 7 assessed: 10/09/23 Feeling nervous, anxious, or on edge: 3 = Nearly every day Not being able to stop or control worryin = Several days Worrying too much about different things: 1 = Several days Trouble relaxin = Several days Being so restless that it is hard to sit still: 0 = Not at all Becoming easily annoyed or irritable: 0 = Not at all Feeling afraid as if something awful might happen: 1 = Several days Total ARNAUD-7 score (0-4 normal; 5-9 mild; 10-14 moderate; 15-21 severe): 7 Source: Developed by Drs. Dewey Angel, Chreie Mei, Dilan Giordano and colleagues, with an educational domingo from [employer]. Physical exam (Primary Care) Vital Signs: Last Vital Signs Pulse 70 10/09/23 13:42 BP 120/68 10/09/23 13:42 Pulse Ox 96 10/09/23 13:42 Oxygen Delivery Method Room Air 10/09/23 13:42 BMI result Body Mass Index 37.0 Tobacco/Smoking Status: Tobacco use Status Tobacco use date assessed 10/09/23 10/09/23 13:55 Patient Tobacco Use Status Never used Tobacco 10/09/23 13:55 e-Cigarette/Vaping Use Never Used 10/09/23 13:55 PHQ-9: PHQ-9 Score PHQ-9: Total score 13 10/09/23 13:55 Depression Screening Interpretation: Positive Thrive Assessment: Date of Thrive Assessment Date Thrive assessed 10/09/23 10/09/23 13:55 Currently or been in a relationship where the following occur: no concerns reported Const General: cooperative and healthy appearing Nutritional Appearance: well nourished Orientation/consciousness: patient oriented x3 Limitations: physical limitations and wheelchair HENMT Head: Yes normal to inspection Eyes General: appearance normal, both eyes and all related structures Neck Neck: Yes normal visual inspection Chest Chest palpation & inspection: normal palpation of entire chest wall Resp Effort & Inspection: normal respiratory effort Neuro General: patient oriented x3 Assessment and Plan Assessment & Plan (1) Hypertension: Code(s): I10 - Essential (primary) hypertension Qualifiers: Hypertension type: primary hypertension Qualified Code(s): I10 - Essential (primary) hypertension Plan: Blood pressure is stable. Continue current medications. (2) CKD (chronic kidney disease) stage 2, GFR 60-89 ml/min: Code(s): N18.2 - Chronic kidney disease, stage 2 (mild) Plan: Patient is seening a lens inspector. BW at baseline. (3) Urinary incontinence: Code(s): R32 - Unspecified urinary incontinence Plan: Has a urologist appt to continue botox injections (4) Anxiety: Code(s): F41.9 - Anxiety disorder, unspecified Plan: Unfortunately her anxiety symptoms are worsening. Partly due to her declining health, increasing immovability. (5) SVT (supraventricular tachycardia): Code(s): I47.1 - Supraventricular tachycardia Plan: Condition is stable. (6) Multiple sclerosis: Comment: Sees Dr Buitrago @ [facility] Code(s): G35 - Multiple sclerosis Plan: Continue care with the neurologist. (7) Pain syndrome, chronic: Comment: Nerve block left knee 10/27/20; RFA genicular nerve- Right Knee 01/2021, Left Knee 02/2021 Code(s): G89.4 - Chronic pain syndrome Plan: Her Oxycodone has been refilled. Medications: Refilled oxycodone covering for Dr. Marc 5 mg PO BID 60 tabs 0RF pain 30 days Coding Level of Care Code Est Pt Level 4 (69394) Diagnoses Primary hypertension I10 Hypertension type: primary hypertension CKD (chronic kidney disease) stage 2, GFR 60-89 ml/min N18.2 Urinary incontinence R32 Anxiety F41.9 SVT (supraventricular tachycardia) I47.1 Multiple sclerosis G35 Pain syndrome, chronic G89.4
[2023-10-09 13:42] VITALS: BP 120/68; PULSE 70; O2SAT 96; BMI 37.0
== END 2023-10-09 14:28 | disposition home or self-care (01) ==
PROVIDERS: PCP Internal Medicine; Visit Provider Internal Medicine
DX: I12.9 Hypertensive chronic kidney disease with stage 1 through stage 4 chronic kidney disease, or unspecified chronic kidney disease (principal); N18.2 Chronic kidney disease, stage 2 (mild); G35 Multiple sclerosis; R32 Unspecified urinary incontinence; F41.9 Anxiety disorder, unspecified; I47.10 Supraventricular tachycardia, unspecified; G89.4 Chronic pain syndrome
CPT/HCPCS: 99214

== ENCOUNTER 2023-12-31 16:06 | Outpatient (AMB) | payer MEDICARE, MEDICAID, SELFPAY ==
--- NOTE | 2023-12-31 16:07 | A.OFFPC_ITS ---
Vital Signs 12/31/23 16:09 Height 5 ft 5 in BMI Reason not done Patient refused/unable BP 120/80 Blood Pressure Location Lt brachial Position Sitting Pulse 71 Pulse Source Pulse Oximeter Pulse Oximetry (%) 92 Oxygen Delivery Method Room Air Intake Visit Reasons: Follow Up - see comments Intake Note: Patient is here to follow up on HTN, CKD, Chronic pain. Security Control Room Officer Required: No Wireless Sales Representative: Present Accompanied by: Grand Child Allergies prochlorperazine [Compazine] Allergy (Severe, Verified 12/31/23 16:36) Dystonic Reaction cobalt [COBALT] Allergy (Intermediate, Verified 12/31/23 16:36) RASH hydrocodone [Vicodin] Allergy (Intermediate, Verified 12/31/23 16:36) Nausea and Vomiting nickel [NICKEL] Allergy (Intermediate, Verified 12/31/23 16:36) RASH ondansetron [Zofran] Allergy (Intermediate, Verified 12/31/23 16:36) Hives morphine Adverse Reaction (Intermediate, Verified 12/31/23 16:36) Nausea and Vomiting Medication List - Last Reconciled 12/31/23 by Drew Marc MD baclofen 10 mg PO BID diltiazem HCl CD 120 mg PO DAILY ergocalciferol (vitamin D2) 1,250 mcg PO QWEEK ibuprofen 400 mg (2 x 200 mg) PO TID PRN lorazepam 0.5 mg PO BID PRN metoprolol tartrate 25 mg PO BID ocrelizumab (Ocrevus) 600 mg IV [id number] omeprazole 20 mg PO BID oxcarbazepine 450 mg PO BID oxycodone 5 mg PO BID 30 days quetiapine 50 mg PO BEDTIME quetiapine 100 mg PO BEDTIME sertraline 200 mg PO DAILY solifenacin (Vesicare) 10 mg PO DAILY zolpidem 10 mg PO BEDTIME PRN Tobacco use date assessed: 12/31/23 Fall risk assessment: 1 Fall in past year Last assessed Fall Risk: 12/31/23 Dental Screening Dental Screen Date: 10/09/23 HPI Follow Up - see comments HPI Details 68-year-old female presents to the offic e to discuss her chronic medical condition. Patient comes in a wheelchair along with her nephew. She has multiple issues to discuss. Her infusions for multiple sclerosis has been stopped. Patient is not sure exactly why. She believes it has because of the pains she has having across the chest and in the lower back. She has been referred to a neurosurgeon for evaluation of her back. Patient is also longer getting Botox for her bladder issues. Her urologist has retired. Patient has chronic back pain, especially in the lower back. She was seen at the pain clinic and an MRI has been ordered. MR results show multilevel disc spondylolisthesis. She is on muscle relaxants. Continues to take oxycodone twice a day for pain control. Anxiety symptoms are reasonably well controlled. [facility] Medical History Urinary incontinence Anxiety Anxiety COVID-19 Osteoarthritis of right knee Essential hypertension SVT (supraventricular tachycardia) Depression History of kidney problems Paroxysmal SVT (supraventricular tachycardia) History of confusion Urgency of micturition Memory difficulties Arthritis History of dysphagia Multiple sclerosis GERD (gastroesophageal reflux disease) Anxiety Hypertension Pain syndrome, chronic Disc degeneration, lumbar 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, bilateral Surgical History Hx of hysterectomy History of surgery on left wrist Deficient knowledge of leg surgery History of rotator cuff surgery History of left knee surgery History of myomectomy History of appendectomy Family History Mother Diabetes Kidney failure Father AAA (abdominal aortic aneurysm, ruptured) Family/Other Mental health disorder Substance use disorder Social History Household Members: None Housing: House Are you a primary care manager cna to a significant other at home: No Do you presently have visiting nurse or other home services: No (great nephew lives upstairs and helps. has had VNA and elder care in past) Alcohol intake: current Alcohol intake frequency: holidays/special occasions only Comment: Tolerable right knee pain per pt. Patient Tobacco Use Status: Never used Tobacco e-Cigarette/Vaping Use: Never Used Second Hand Smoke Exposure: No Advance Directives Date on File: 05/16/21 service: No Current occupational status: retired and disabled Cognitive needs: Yes (walker) Hearing needs: No Vision needs: Yes (glasses) Questionnaire Thrive Questionnaire Date Thrive assessed: 10/09/23 ARNAUD-7 AMB Questionnaire ARNAUD-7 Date ARNAUD - 7 assessed: 10/09/23 Source: Developed by Drs. Dewey Angel, Cherie Mei, Dilan Giordano and colleagues, with an educational domingo from [employer]. Physical exam (Primary Care) Vital Signs: Last Vital Signs Pulse 71 12/31/23 16:09 BP 120/80 12/31/23 16:09 Pulse Ox 92 12/31/23 16:09 Oxygen Delivery Method Room Air 12/31/23 16:09 Tobacco/Smoking Status: Tobacco use Status Tobacco use date assessed 12/31/23 12/31/23 16:11 Patient Tobacco Use Status Never used Tobacco 12/31/23 16:11 e-Cigarette/Vaping Use Never Used 12/31/23 16:11 Thrive Assessment: Date of Thrive Assessment Date Thrive assessed 10/09/23 12/31/23 16:11 Const General: cooperative and healthy appearing Nutritional Appearance: well nourished Orientation/consciousness: patient oriented x3 Limitations: no limitations HENMT Head: Yes normal to inspection Eyes General: appearance normal, both eyes and all related structures Neck Neck: Yes normal visual inspection Chest Chest palpation & inspection: normal palpation of entire chest wall Resp Effort & Inspection: normal respiratory effort Neuro General: patient oriented x3 Assessment and Plan Assessment & Plan (1) Hypertension: Code(s): I10 - Essential (primary) hypertension Qualifiers: Hypertension type: primary hypertension Qualified Code(s): I10 - Essential (primary) hypertension Plan: Blood pressure is in range. Patient is declining screening mammograms. (2) CKD (chronic kidney disease) stage 2, GFR 60-89 ml/min: Code(s): N18.2 - Chronic kidney disease, stage 2 (mild) Plan: Recently saw her farm tractor operator. Patient has to go get the blood work done. (3) Anxiety: Code(s): F41.9 - Anxiety disorder, unspecified Plan: Slowly this condition is worsening. (4) Multiple sclerosis: Comment: Sees Dr Buitrago @ [facility] @ [facility] Code(s): G35 - Multiple sclerosis Plan: Patient has a follow-up appointment with the neurologist. (5) Pain syndrome, chronic: Comment: Nerve block left knee 5/7/21; RFA genicular nerve- Right Knee 01/2021, Left Knee 02/2021 Code(s): G89.4 - Chronic pain syndrome Plan: Continue oxycodone twice a day. MRI has been reviewed. She has a neurosurgical evaluation appointment. Coding Level of Care Code Est Pt Level 4 (37641) Complex EM visit Add On G2211 Diagnoses Primary hypertension I10 Hypertension type: primary hypertension CKD (chronic kidney disease) stage 2, GFR 60-89 ml/min N18.2 Anxiety F41.9 Multiple sclerosis G35 Pain syndrome, chronic G89.4
[2023-12-31 16:09] VITALS: BP 120/80; PULSE 71; O2SAT 92
== END 2023-12-31 16:37 | disposition home or self-care (01) ==
LOC: HO.HMGH 16:06
PROVIDERS: PCP Internal Medicine; Visit Provider Internal Medicine
DX: I12.9 Hypertensive chronic kidney disease with stage 1 through stage 4 chronic kidney disease, or unspecified chronic kidney disease (principal); N18.2 Chronic kidney disease, stage 2 (mild); F41.9 Anxiety disorder, unspecified; G35 Multiple sclerosis; G89.4 Chronic pain syndrome
CPT/HCPCS: 99214; G2211

== ENCOUNTER 2024-01-28 15:33 | Outpatient (REF) | payer MEDICARE, MEDICAID, SELFPAY ==
[2024-01-28 17:11] LABS: Appearance Urine Clear; Color Urine Yellow; Glucose Urine UA Negative (Negative); Leukocyte Esterase Urine Small (1+) (Negative); Nitrite Urine Negative (Negative); PH 5.5 (5.0-9.0); Specific Gravity - Urine 1.025 (1.005-1.025); UMIC TRIGGER UA YES; Urine Blood Negative (Negative); Urine Ketones Trace mg/dL (Negative); Urine Protein 30 (1+) mg/dL (Neg-Trace)
[2024-01-28 17:14] LABS: Bacteria Urine None Seen (None Seen); Hyaline Casts Urine 0-2 /LPF (0-2); RBC Urine 0-2 /HPF (0-2); Squamous Epithelial Cell Urine 0-2 /HPF (0-2)
[2024-01-28 17:42] LABS: Anion Gap 14 (12-20); Blood Urea Nitrogen 14 mg/dL (9-16); Carbon Dioxide 24 mmol/L (22-29); Chloride 100 mmol/L (96-108); Estimated Glomerular Filt Rate 55; Potassium 4.3 mmol/L (3.3-5.1); Sodium 134 mmol/L (135-145)
[2024-01-28 17:45] LABS: Creatinine Urine 200.52 mg/dL; Protein/Creatinine Ratio, Ur 0.17 (<0.2); Total Protein Urine Random 35 mg/dL (<12)
== END 2024-01-28 15:34 | disposition home or self-care (01) ==
LOC: HO.LAB 15:33
PROVIDERS: PCP Internal Medicine; Referring Provider Internal Medicine; Visit Provider Internal Medicine Nephrology
DX: R30.0 Dysuria (principal); I12.9 Hypertensive chronic kidney disease with stage 1 through stage 4 chronic kidney disease, or unspecified chronic kidney disease; N18.2 Chronic kidney disease, stage 2 (mild)
CPT/HCPCS: 36415; 80051; 81001; 82565; 82570; 84156; 84520; 87086

== ENCOUNTER 2024-02-02 12:58 | Outpatient (AMB) | payer MEDICARE, MEDICAID, SELFPAY ==
--- NOTE | 2023-12-16 14:24 | HO.SPINEOV ---
Intake Visit Reasons: cervical spondylosis Allergies prochlorperazine [Compazine] Allergy (Severe, Verified 10/15/23 07:51) Dystonic Reaction cobalt [COBALT] Allergy (Intermediate, Verified 10/15/23 07:51) RASH hydrocodone [Vicodin] Allergy (Intermediate, Verified 10/15/23 07:51) Nausea and Vomiting nickel [NICKEL] Allergy (Intermediate, Verified 10/15/23 07:51) RASH ondansetron [Zofran] Allergy (Intermediate, Verified 10/15/23 07:51) Hives morphine Adverse Reaction (Intermediate, Verified 10/15/23 07:51) Nausea and Vomiting Assessment & Plan Assessment & Plan Plan Dear RICHIE Anaya, Thank you for referring Sarah to our office today. [] PMH: Depression, multiple sclerosis, high blood pressure, anxiety, insomnia, stress incontinence, Social hx:[] Medications: Baclofen, diltiazem, vitamin-D, ibuprofen, lorazepam, metoprolol, omeprazole, Trileptal, oxycodone, quetiapine, sertraline VESIcare, Ambien, cyclobenzaprine. Allergies: [] Physical exam: [] Imaging review: [] Impression: [] Thank you for allowing us to care for your patient. The total time spent with this visit with this patient was[] minutes reviewing history, physical exam, [] imaging review, and implementation of treatment plan or further diagnostic testing Orlando Baxter MD,PhD [facility] Coding
--- NOTE | 2024-02-02 13:05 | A.SPINEOV_ITS ---
Intake Visit Reasons: cervical spondylosis Intake Note: Ms. Dash is here today c/o middle to lower back pain with tingling and tightness on her feet. Powdered Metal Supervisor Required: No Allergies prochlorperazine [Compazine] Allergy (Severe, Verified 02/02/24 13:15) Dystonic Reaction cobalt [COBALT] Allergy (Intermediate, Verified 02/02/24 13:15) RASH hydrocodone [Vicodin] Allergy (Intermediate, Verified 02/02/24 13:15) Nausea and Vomiting nickel [NICKEL] Allergy (Intermediate, Verified 02/02/24 13:15) RASH ondansetron [Zofran] Allergy (Intermediate, Verified 02/02/24 13:15) Hives morphine Adverse Reaction (Intermediate, Verified 02/02/24 13:15) Nausea and Vomiting Assessment & Plan Assessment & Plan (1) Cervical stenosis of spinal canal: Code(s): M48.02 - Spinal stenosis, cervical region Category: Medical Plan Dear RICHIE Anaya, Thank you for referring Sarah to our office today. She is a pleasant 68-year-old female comes in today as in Neurology referral after having cervical and thoracic MRI's completed. Sarah has been reporting an increase of her MS symptoms, and there was some question of confounding cervical/thoracic spine pathology. After some discussion, Sarah reports that her diffuse pain has increased over the last couple of years. Her speech has worsened. She has begun experiencing spasms around her stomach, and worsening spasms in her lower extremities. She denies any sharp/severe shooting pains down her bilateral arms, denies any issues with circuit court clerk strength, and denies any significant upper extremity weakness aside from when she is exposed to warm temperatures. She has had physical therapy for her multiple sclerosis symptoms in the past, and has been evaluated by neurosurgeons in the past. She reports prior evaluations by Dr. Natarajan and Dr. Barber who both informed her that she does not need surgery. PMH: Multiple sclerosis, hypertension, osteoarthritis, SVT, urinary incontinence, anxiety, depression. Social hx: Patient does not smoke, reports no substance use. Medications: Metoprolol, sertraline, diltiazem, oxcarbazepine, baclofen, VESIcare, omeprazole, Seroquel, vitamin-D, Ambien ibuprofen, oxycodone, lorazepam, Ocrevus. Allergies: Compazine, cobalt, Vicodin, nickel, Zofran, morphine. Physical exam: Sarah has 4/5 handgrip strength but the remainder of her strength appears 5/5. All of her sensational deficits are transient and not notable during this examination. She is hyporeflexive in her bilateral lower extremities, and notably hyperreflexive in her upper extremities. She is wheelchair-bound, and states this is for balance issues that started several years ago. (+) bilateral Monk's. No clonus. (-) Babinski's. Imaging review: MRI of the cervical spine completed here at [facility] shows aety-ju-yqaawxha central canal and moderate-severe bilateral foraminal stenosis from C4-7. There is no evidence of T2 signal change or myelomalacia. MRI of the thoracic spine shows no significant central canal or foraminal stenosis. No evidence of myelomalacia. Impression: Sarah is a pleasant 68-year-old female who comes in today with a chief complaint of worsening multiple sclerosis symptoms. Although she does have moderate-severe foraminal stenosis from C4-7 it does not appear to be significantly symptomatic at this time. To be fair, it is difficult to discern between her multiple sclerosis symptoms and a true neurological impingement. Given this, she has no severe shooting pains down either arm, has not been dropping things/having difficulty with articulation, has no significant proximal muscle weakness, and has no evidence of myelomalacia on MRI imaging. For these reasons I do not believe a surgical intervention would be particularly helpful for Sarah's current symptoms. I believe she is simply experiencing worsening development of her MS. She was encouraged to reach back out to our office for follow-up if she develops any severe shooting pain down either arm, or develops any other neurological manifestations that we discussed and are lis brianda above. Thank you for allowing us to care for your patient. The total time spent with this visit with this patient was 65 minutes reviewing history, physical exam, MRI imaging review, and implementation of treatment plan or further diagnostic testing Orlando Baxter MD,PhD [facility] Coding Level of Care Code New Pt Level 5 (47367) Diagnoses Cervical stenosis of spinal canal M48.02
== END 2024-02-02 13:48 | disposition home or self-care (01) ==
PROVIDERS: PCP Internal Medicine; Referring Provider Physician Assistant; Visit Provider Physician Assistant
DX: M48.02 Spinal stenosis, cervical region (principal)
CPT/HCPCS: 99205; 99215

== ENCOUNTER → 2024-02-02 12:58 | Outpatient (BNVA) | payer MEDICARE, MEDICAID, SELFPAY | PROVIDERS: PCP Internal Medicine; Visit Provider Physician Assistant | DX: M48.02 Spinal stenosis, cervical region (principal) | CPT/HCPCS: 99202 ==

== ENCOUNTER 2024-02-04 15:35 | Outpatient (AMB) | payer MEDICARE, MEDICAID, SELFPAY ==
[2024-02-04 15:38] VITALS: BP 150/100; PULSE 71; O2SAT 96; BMI 32.4
--- NOTE | 2024-02-04 15:38 | HO.NEPHOV_ITS ---
Vital Signs 02/04/24 15:38 Height 5 ft 5 in Weight 195 lb BMI 32.4 BP 150/100 H Blood Pressure Location Rt brachial Position Sitting Pulse 71 Pulse Source Pulse Oximeter Pulse Oximetry (%) 96 Oxygen Delivery Method Room Air Intake Visit Reasons: CKD/ 6 MO FU/ Conf Director Women Required: No Accompanied by: Self / Same As Patient Allergies prochlorperazine [Compazine] Allergy (Severe, Verified 02/04/24 15:41) Dystonic Reaction cobalt [COBALT] Allergy (Intermediate, Verified 02/04/24 15:41) RASH hydrocodone [Vicodin] Allergy (Intermediate, Verified 02/04/24 15:41) Nausea and Vomiting nickel [NICKEL] Allergy (Intermediate, Verified 02/04/24 15:41) RASH ondansetron [Zofran] Allergy (Intermediate, Verified 02/04/24 15:41) Hives morphine Adverse Reaction (Intermediate, Verified 02/04/24 15:41) Nausea and Vomiting HPI Comments Details: I had the pleasure of seeing Sarah in follow-up of her hypertension and history of hyponatremia. She has multiple sclerosis and has been having challenges from it lately. She has not gotten her last infusion of Ocrevus. S he has been feeling weak and tired. She has been having urinary issues and has seen a urologist. She underwent a cystoscopy for evaluation of hematuria. Now she has incontinence of urine. She was wondering whether Botox will help with that. She is not trying different medications for bladder control.This is also making her depressed. She has chronic pain and patient also believes she may have fibromyalgia. oxycodone is barely controlling her symptoms. She avoids nonsteroidal anti-inflammatories. She has history of SVT and is followed by Cardiology which she thinks is under good control on current medication regimen which is also helping with her blood pressure. Her serum creatinine has been labile but stable. He also has been having tooth issues for which she is working with a dentist .she takes diltiazem as well as metoprolol. She is also struggling with lack of proper support system for her, even though her nephew tries to help the best he can. Her mentation has been at baseline but she thinks she is forgetting lot more than before. COUNT INCLUDES THE [facility] Medical History Urinary incontinence Anxiety Anxiety COVID-19 Osteoarthritis of right knee Essential hypertension SVT (supraventricular tachycardia) Depression History of kidney problems Paroxysmal SVT (supraventricular tachycardia) History of confusion Urgency of micturition Memory difficulties Arthritis History of dysphagia Multiple sclerosis GERD (gastroesophageal reflux disease) Anxiety Hypertension Pain syndrome, chronic Disc degeneration, lumbar 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, bilateral Surgical History Hx of hysterectomy History of surgery on left wrist Deficient knowledge of leg surgery History of rotator cuff surgery History of left knee surgery History of myomectomy History of appendectomy Family History Mother Diabetes Kidney failure Father AAA (abdominal aortic aneurysm, ruptured) Family/Other Mental health disorder Substance use disorder Social History Household Members: None Housing: House Are you a primary care center manager to a significant other at home: No Do you presently have visiting nurse or other home services: No (great nephew lives upstairs and helps. has had VNA and elder care in past) Alcohol intake: current Alcohol intake frequency: holidays/special occasions only Comment: Tolerable right knee pain per pt. Patient Tobacco Use Status: Never used Tobacco e-Cigarette/Vaping Use: Never Used Second Hand Smoke Exposure: No Advance Directives Date on File: 05/16/21 service: No Current occupational status: retired and disabled Cognitive needs: Yes (walker) Hearing needs: No Vision needs: Yes (glasses) Review of Systems Const All systems reviewed & are unremarkable except as noted in HPI and below Physical Exam Vital Signs: Last Vital Signs Pulse 71 02/04/24 15:38 BP 150/100 H 02/04/24 15:38 Pulse Ox 96 02/04/24 15:38 Oxygen Delivery Method Room Air 02/04/24 15:38 BMI result Body Mass Index 32.4 Const General: no acute distress Neck Neck: Yes supple Resp Auscultation: diminished lung sounds Cardio Rate: regular rate GI Palpation (GI): Soft to palpation Neuro General: moves all extremities Results Reviewed Nephrology Results: Sodium 134 mmol/L (135-145) L 01/28/24 Potassium 4.3 mmol/L (3.3-5.1) 01/28/24 Chloride 100 mmol/L (96-108) 01/28/24 Carbon Dioxide 24 mmol/L (22-29) 01/28/24 BUN 14 mg/dL (9-16) 01/28/24 Creatinine 1.00 mg/dL (0.5-1.4) 01/28/24 Urine Protein 30 (1+) mg/dL (Neg-Trace) H 01/28/24 Urine Creatinine 200.52 mg/dL 01/28/24 Protein/Creatinin Ratio 0.17 (<0.2) 01/28/24 Assessment & Plan Assessment & Plan (1) Hypertension: Code(s): I10 - Essential (primary) hypertension Category: Medical Qualifiers: Hypertension type: primary hypertension Qualified Code(s): I10 - Essential (primary) hypertension (2) Hyponatremia: Code(s): E87.1 - Hypo-osmolality and hyponatremia Category: Medical Plan She always had been at risk for excess ADH. Her serum sodium has been stable. Her blood pressure has been at goal on current medication regimen. Sometimes diltiazem is giving her some edema. She has not known to have any proteinuria. Her renal functions have been stable. She had been following up with urologist for her history of hematuria and incontinence. She was considered to get a Botox for her bladder issues. I increased her metoprolol to 37.5 mg bid. I did not make any other medication changes today. She will benefit from seeing MS specialist in [facility]/ [place]. Follow-up lab work ordered. Follow-up appointment given Orders: Orders Electrolytes Today E87.1 - Hypo-osmolality and hyponatremia, I10 - Essential (primary) hypertension Creatinine Today E87.1 - Hypo-osmolality and hyponatremia, I10 - Essential (primary) hypertension Blood Urea Nitrogen Today E87.1 - Hypo-osmolality and hyponatremia, I10 - Essential (primary) hypertension Medications: Changed From metoprolol tartrate Call for appt for 2023, overdue. 25 mg PO BID 180 tabs 2RF To metoprolol tartrate 37.5 mg (1.5 x 25 mg) PO BID 90 tabs 10RF 30 days Coding Level of Care Code Est Pt Level 4 (22527) Diagnoses Primary hypertension I10 Hypertension type: primary hypertension Hyponatremia E87.1
== END 2024-02-04 16:22 | disposition home or self-care (01) ==
PROVIDERS: PCP Internal Medicine; Visit Provider Internal Medicine Nephrology
DX: I10 Essential (primary) hypertension (principal); E87.1 Hypo-osmolality and hyponatremia
CPT/HCPCS: 99214

== ENCOUNTER → 2024-02-04 15:35 | Outpatient (BNVA) | payer MEDICARE, MEDICAID, SELFPAY | PROVIDERS: PCP Internal Medicine; Visit Provider Internal Medicine Nephrology | DX: I12.9 Hypertensive chronic kidney disease with stage 1 through stage 4 chronic kidney disease, or unspecified chronic kidney disease (principal); N18.9 Chronic kidney disease, unspecified; E87.1 Hypo-osmolality and hyponatremia | CPT/HCPCS: 99212 ==

== ENCOUNTER → 2024-04-15 14:44 | Outpatient (BNVA) | payer MEDICARE, MEDICAID, SELFPAY | PROVIDERS: PCP Internal Medicine; Visit Provider Internal Medicine | DX: G35 Multiple sclerosis (principal) | CPT/HCPCS: 99212 ==

== ENCOUNTER 2024-04-15 14:45 | Outpatient (AMB) | payer MEDICARE, MEDICAID, SELFPAY ==
--- NOTE | 2024-04-15 14:45 | MHC.PC.OV ---
Vital Signs 04/15/24 14:46 Height 5 ft 5 in Weight 220 lb 14.451 oz BMI 36.8 BP 130/70 Blood Pressure Location Lt brachial Position Sitting Pulse 78 Pulse Source Pulse Oximeter Pulse Oximetry (%) 97 Oxygen Delivery Method Room Air Intake Visit Reasons: 3mth f/u Intake Note: Patient is here to follow up on HTN, Pain syndrome, CKD, Multiple sclerosis. Pt decline flu shot today. Washer Blanket Required: No Sodium Methylate Operator: Present Accompanied by: Grand Child Allergies prochlorperazine [Compazine] Allergy (Severe, Verified 04/16/24 04:55) Dystonic Reaction cobalt [COBALT] Allergy (Intermediate, Verified 04/16/24 04:55) RASH hydrocodone [Vicodin] Allergy (Intermediate, Verified 04/16/24 04:55) Nausea and Vomiting nickel [NICKEL] Allergy (Intermediate, Verified 04/16/24 04:55) RASH ondansetron [Zofran] Allergy (Intermediate, Verified 04/16/24 04:55) Hives morphine Adverse Reaction (Intermediate, Verified 04/16/24 04:55) Nausea and Vomiting Medication List - Last Reconciled 04/16/24 by Drew Marc MD baclofen 10 mg PO BID diltiazem HCl CD 120 mg PO DAILY ergocalciferol (vitamin D2) 1,250 mcg PO QWEEK ibuprofen 400 mg (2 x 200 mg) PO TID PRN lorazepam 0.5 mg PO BID PRN metoprolol tartrate 37.5 mg (1.5 x 25 mg) PO BID 30 days ocrelizumab (Ocrevus) 600 mg IV [id number] omeprazole 20 mg PO BID oxcarbazepine 450 mg PO BID oxycodone 5 mg PO BID 30 days prazosin 1 mg PO BEDTIME quetiapine 50 mg PO BEDTIME quetiapine 100 mg PO BEDTIME sertraline 200 mg PO DAILY solifenacin (Vesicare) 10 mg PO DAILY zolpidem 10 mg PO BEDTIME PRN Tobacco use date assessed: 04/15/24 Fall risk assessment: No Falls in past year Last assessed Fall Risk: 04/15/24 Dental Screening Dental Screen Date: 10/09/23 HPI 3mth f/u HPI Details 68-year-old female presents to the office to discuss her chronic medical condition. She is in a wheelchair and is accompanied by her grand nephew. Since last office visit, patient has seen the orthopedic surgeon for her lower back pain. After reviewing the MRI, she was deemed inoperable. Patient has been advised to use muscle relaxants and opiates for pain control. She is also continuing to follow-up at the neurologist for multiple sclerosis. The Ocrevus infusion has been stopped. Patient is getting baclofen for relief for her complaints of spasm in the abdomen. She has a follow-up with a neurologist coming up. Patient is also seeing a lead manufacturing engineering tech, her baseline creatinine has returned to normal. Also has been seeing the windows administrator for her tachycardia. Patient is on a beta-jessica in currently her symptoms are stable. However patient continues to have nonspecific discomforts, low back pain, poor dental hygiene and has limited mobility. She is also incontinent to urine. [facility] Medical History Urinary incontinence Anxiety Anxiety COVID-19 Osteoarthritis of right knee Essential hypertension SVT (supraventricular tachycardia) Depression History of kidney problems Paroxysmal SVT (supraventricular tachycardia) History of confusion Urgency of micturition Memory difficulties Arthritis History of dysphagia Multiple sclerosis GERD (gastroesophageal reflux disease) Anxiety Hypertension Pain syndrome, chronic Disc degeneration, lumbar 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, bilateral Surgical History Hx of hysterectomy History of surgery on left wrist Deficient knowledge of leg surgery History of rotator cuff surgery History of left knee surgery History of myomectomy History of appendectomy Family History Mother Diabetes Kidney failure Father AAA (abdominal aortic aneurysm, ruptured) Family/Other Mental health disorder Substance use disorder Social History Household Members: None Housing: House Are you a primary career center director to a significant other at home: No Do you presently have visiting nurse or other home services: No (great nephew lives upstairs and helps. has had VNA and elder care in past) Alcohol intake: current Alcohol intake frequency: holidays/special occasions only Comment: Tolerable right knee pain per pt. Patient Tobacco Use Status: Never used Tobacco e-Cigarette/Vaping Use: Never Used Second Hand Smoke Exposure: No Advance Directives Date on File: 05/16/21 service: No Current occupational status: retired and disabled Cognitive needs: Yes (walker) Hearing needs: No Vision needs: Yes (glasses) Questionnaire Thrive Questionnaire Date Thrive assessed: 10/09/23 ARNAUD-7 AMB Questionnaire ARNAUD-7 Date ARNAUD - 7 assessed: 10/09/23 Source: Developed by Drs. Dewey Angel, Cherie Mei, Dilan Giordano and colleagues, with an educational domingo from [employer]. Physical exam (Primary Care) Vital Signs: Last Vital Signs Pulse 78 04/15/24 14:46 BP 130/70 04/15/24 14:46 Pulse Ox 97 04/15/24 14:46 Oxygen Delivery Method Room Air 04/15/24 14:46 BMI result Body Mass Index 36.8 Tobacco/Smoking Status: Tobacco use Status Tobacco use date assessed 04/15/24 04/15/24 14:51 Patient Tobacco Use Status Never used Tobacco 04/15/24 14:51 e-Cigarette/Vaping Use Never Used 04/15/24 14:51 Thrive Assessment: Date of Thrive Assessment Date Thrive assessed 10/09/23 04/15/24 14:51 Const General: cooperative and healthy appearing Nutritional Appearance: well nourished Orientation/consciousness: patient oriented x3 Limitations: no limitations HENMT Head: Yes normal to inspection Eyes General: appearance normal, both eyes and all related structures Neck Neck: Yes normal visual inspection Chest Chest palpation & inspection: normal palpation of entire chest wall Resp Effort & Inspection: normal respiratory effort Neuro General: patient oriented x3 Coding Level of Care Code Est Pt Level 4 (91926) Complex EM visit Add On G2211 Diagnoses Multiple sclerosis G35 Assessment & Plan Assessment & Plan (1) Multiple sclerosis: Comment: Sees Dr Buitrago @ [facility] Code(s): G35 - Multiple sclerosis Category: Medical Plan: Patient has several chronic illnesses which have increased the morbidity. Her pain and comfort level is being addressed by the adequate use of opiates. She takes it twice a day. I have encouraged her to try walking a little bit despite her chronic illnesses. This is to improve the general tone in her body. Encouraged her to keep all the follow-up appointments.
[2024-04-15 14:46] VITALS: BP 130/70; PULSE 78; O2SAT 97; BMI 36.8
== END 2024-04-15 15:12 | disposition home or self-care (01) ==
PROVIDERS: PCP Internal Medicine; Visit Provider Internal Medicine
DX: G35 Multiple sclerosis (principal)

== ENCOUNTER 2024-05-25 12:57 | Outpatient (REF) | payer MEDICARE, MEDICAID, SELFPAY ==
[2024-05-25 13:42] LABS: MANUAL DIFF FLAG NO
[2024-05-25 14:09] LABS: Basophils Percent Auto 0.3 % (0-2); Eosinophils Absolute Auto 0.2 X10*3/uL (0.0-0.4); Eosinophils Percent Auto 1.9 % (0-4); Hematocrit 32.5 % (37.0-47.0); Imm Gran Abs Auto 0.06 X10*3/uL (0.00-0.03); Imm Gran Pct Auto 0.8 % (0.0-0.4); Lymphocytes Absolute Auto 1.8 X10*3/uL (1.2-4.9); Lymphocytes Percent Auto 22.8 % (20-40); Mean Corpuscular HGB Conc 33.8 g/dl (31.0-35.0); Mean Corpuscular Hemoglobin 31.1 pg (27.0-33.0); Mean Corpuscular Volume 91.8 fL (80.0-98.0); Mean Platelet Volume 9.7 fL (9.4-12.3); Monocytes Absolute Auto 0.4 X10*3/uL (0.1-1.2); Monocytes Percent Auto 5.2 % (2-11); Neutrophils Absolute Auto 5.5 x10*3/uL (2.0-8.3); Platelet Count 178 X10*3/uL (160-400); Red Blood Count 3.54 X10*6/uL (4.20-5.50); Red Cell Distribution Width 12.8 % (11.0-16.0); White Blood Count 7.9 X10*3/uL (4.8-10.8)
[2024-05-25 14:33] LABS: Appearance Urine Clear; Color Urine Yellow; Glucose Urine UA Negative (Negative); Leukocyte Esterase Urine Moderate (2+) (Negative); Nitrite Urine Negative (Negative); PH 5.5 (5.0-9.0); Specific Gravity - Urine 1.025 (1.005-1.025); UMIC TRIGGER UACC YES; Urine Blood Negative (Negative); Urine Ketones Negative (Negative); Urine Protein Trace mg/dL (Neg-Trace)
[2024-05-25 14:45] LABS: Bacteria Urine None Seen (None Seen); Hyaline Casts Urine 0-2 /LPF (0-2); RBC Urine 0-2 /HPF (0-2); UACC Culture Trigger YES; WBC Urine 21-50 /HPF (0-5)
== END 2024-05-25 12:58 | disposition home or self-care (01) ==
LOC: HO.MRI 12:57
PROVIDERS: PCP Internal Medicine; Visit Provider Physician Assistant
DX: G35 Multiple sclerosis (principal); R82.90 Unspecified abnormal findings in urine
CPT/HCPCS: 36415; 81001; 85025; 87086

== ENCOUNTER 2024-05-30 14:33 | Outpatient (REF) | payer MEDICARE, MEDICAID, SELFPAY ==
--- NOTE | ~2024-05-30 | MR_ITS ---
EXAMINATION: MR BRAIN WITHOUT CONTRAST MR CERVICAL SPINE WITHOUT CONTRAST CLINICAL INFORMATION: Multiple sclerosis. COMPARISON: Brain and cervical spine MRI from 06/17/2023. TECHNIQUE: MRI of the brain and cervical spine was obtained using routine sequences without intravenous contrast using MS protocol. This included a sagittal 3D high-resolution T2 CUBE FLAIR sequence. FINDINGS: Brain: There are multiple T2/FLAIR hyperintense lesions consistent with an underlying diagnosis of demyelination. This includes lesions within the subcortical, deep white matter, periventricular, callosal, and brainstem distributions. New Lesions: None. Enhancing Lesions: No contrast utilized for this exam. Restricted Diffusion: None. T1 Black Holes: Approximately 5. Volume Loss: Mild Additional Findings: No evidence of edema or expansion of the optic nerves. No focal restricted diffusion is seen to suggest acute or subacute cerebral ischemia. No intracranial mass, intra-axial blood products, midline shift, or extra-axial collection is demonstrated. The ventricles and sulcal spaces appear normal. Normal arterial and venous vascular flow voids are present. No signal abnormalities within the superior sagittal or transverse sinuses. No signal abnormalities within the paranasal sinuses or mastoids. Cervical Spine: Straightening of the normal cervical lordosis. Mild degenerative anterolisthesis of C3 on C4. Moderate degenerative retrolisthesis of C4 on C5. Minimal degenerative retrolisthesis of C6 on C7. Advanced degenerative disc disease from C4 to C7. Moderate degenerative disc disease at C7-T1 and T3-T4. Mild degenerative disc disease at all additional levels. Associated mixed Modic type discogenic endplate changes including Modic type I discogenic edema from C3-C7. No demonstrated spinal cord signal abnormalities. Limited evaluation of the soft tissues of the neck without demonstrated abnormalities. The flow voids of the major cervical vessels are maintained. Normal appearance of the cervicomedullary junction and visualized posterior fossa. SPINAL LEVELS: C2-C3: Normal annular contour. There is no uncovertebral joint arthropathy. There is mild bilateral facet joint arthropathy. There is no neural foraminal stenosis. There is no spinal canal stenosis. C3-C4: Mild disc-osteophyte complex. There is mild left and no right uncovertebral joint arthropathy. There is mild bilateral facet joint arthropathy. There is no neural foraminal stenosis. There is no spinal canal stenosis. C4-C5: Moderate disc-osteophyte complex. There is moderate bilateral uncovertebral joint arthropathy. There is moderate bilateral facet joint arthropathy. There is moderate to severe bilateral neural foraminal stenosis. There is mild to moderate spinal canal stenosis. C5-C6: Moderate disc-osteophyte complex. There is moderate left and mild right uncovertebral joint arthropathy. There is mild bilateral facet joint arthropathy. There is moderate left worse than right neural foraminal stenosis. There is mild spinal canal stenosis. C6-C7: Moderate disc-osteophyte complex. There is moderate left worse than right uncovertebral joint arthropathy. There is moderate bilateral facet joint arthropathy. There is severe left and moderate right neural foraminal stenosis. There is mild to moderate spinal canal stenosis. C7-T1: Mild disc-osteophyte complex. There is mild left and no right uncovertebral joint arthropathy. There is mild bilateral facet joint arthropathy. There is no neural foraminal stenosis. There is no spinal canal stenosis. MR/MR head/brain wo con IMPRESSION: 1. Nonspecific supratentorial and infratentorial white matter changes consistent with an underlying diagnosis of demyelination in the appropriate clinical setting. No demonstrated restricted diffusion to strongly suggest active lesions. 2. No demonstrated cervical spinal cord signal abnormalities. Moderate multilevel degenerative spondyloarthropathy of the cervical spine as described in detail above. Most notably, there are mild to moderate spinal canal stenoses from C4-C7. Moderate to severe neural foraminal stenoses from C4-C7. Electronically signed by: Dale Lal DO 06/07/2024 06:45 AM [facility] [place]
== END 2024-05-30 14:34 | disposition home or self-care (01) ==
LOC: HO.MRI 14:33
PROVIDERS: PCP Internal Medicine; Visit Provider Physician Assistant
DX: G35 Multiple sclerosis (principal)
CPT/HCPCS: 70551; 72141

== ENCOUNTER 2024-06-15 11:54 | Inpatient (IN) | payer MEDICARE, MEDICAID, SELFPAY ==
[2024-06-15] VITALS (7 sets, daily range): BP systolic 131–209; BP diastolic 90–110; PULSE 87–106; RESP 20–26; TEMP 36.1–37.3; O2SAT 96–99; BMI 34.3
--- NOTE | ~2024-06-15 | CT_ITS ---
EXAMINATION: CT HEAD WITHOUT CONTRAST CLINICAL INFORMATION: Head pain after falling COMPARISON: 05/30/2024 TECHNIQUE: Contiguous axial imaging was performed from the skull base to vertex without intravenous administration of contrast. This CT examination was performed using dose optimization techniques as appropriate, variously including the following: *Automated exposure control *Adjustment of mA and/or kV according to patient size (this includes techniques or standardized protocols for targeted exams where dose is matched to indication/reason for exam; i.e. extremities or head) *Use of iterative reconstruction technique DLP: 705 mGy-cm FINDINGS: Moderate deep white matter gliosis. This was better detailed on the recent brain MRI. Mild prominence of the sulci and ventricles. Old left basal ganglial lacune. No intra or extra axial fluid collection or hemorrhage, mass or mass effect. Calvarium intact. CT/CT head/brain wo IV con IMPRESSION: No acute intracranial pathology. Electronically signed by: Juve Tidwell MD 06/15/2024 01:35 PM EST
--- NOTE | ~2024-06-15 | CT_ITS ---
EXAMINATION: CT CERVICAL SPINE WITHOUT CONTRAST CLINICAL INFORMATION: Fall. Pain COMPARISON: MRI cervical spine 05/30/2024 TECHNIQUE: Thin section axial imaging with sagittal and coronal reformats This CT examination was performed using dose optimization techniques as appropriate, variously including the following: *Automated exposure control *Adjustment of mA and/or kV according to patient size (this includes techniques or standardized protocols for targeted exams where dose is matched to indication/reason for exam; i.e. extremities or head) *Use of iterative reconstruction technique DLP: 485 mGy-cm FINDINGS: Advanced degenerative changes noted, C4-C7. Anterior and posterior coarse osteophytes are noted. There is slight mass effect on the ventral aspect of the canal. Prevertebral soft tissues normal. There is no fracture or destructive process. There is extensive vascular calcification noted in the vertebrals. Lung apices clear. CT/CT cervical spine wo IV con IMPRESSION: Multilevel advanced degenerative change. No fracture or acute findings. Fleischner guidelines were followed. Electronically signed by: Juve Tidwell MD 06/15/2024 01:41 PM [facility] CARRASCO
--- NOTE | ~2024-06-15 | CT_ITS ---
EXAMINATION: CT chest w IV con (accession [id number]) CT abdomen pelvis w IV con (accession [id number]) CLINICAL INFORMATION: cough, ?pneumonia, abd pain COMPARISON: CT abdomen/pelvis 04/25/2022, CTA chest 05/16/2021. TECHNIQUE: Multidetector volumetric imaging was performed through the chest, abdomen and pelvis following the administration of 85 mL of Omnipaque 350 intravenous contrast. Sagittal and coronal reformatted images were obtained on the technologist's workstation. Axial MIP volume rendering provided. This CT examination was performed using dose optimization techniques as appropriate, variously including the following: * Automated exposure control * Adjustment of mA and/or kV according to patient size (this includes techniques or standardized protocols for targeted exams where dose is matched to indication/reason for exam; i.e. extremities or head) Use of iterative reconstruction technique DLP: 1741 mGy-cm FINDINGS: CHEST: LUNGS: The central airways are patent. Bibasilar atelectasis. Bilateral dependent subsegmental atelectasis. No focal consolidation or mass. There is a 0.5 cm fissural right lower lobe nodule (series #7 axial image 215). No pleural effusion or pneumothorax. MEDIASTINUM: The heart is globally normal without pericardial effusion. Mild coronary arterial calcifications are present. Central vascular structures are unremarkable. No hilar or mediastinal lymphadenopathy. Bilateral heterogeneous thyroid nodules. The right thyroid nodule measures 2 x 1.9 cm, increased from 1.8 cm in 2020. The left thyroid nodule measures 1.3 x 0.8 cm, increased from subcentimeter in 202 CHEST WALL: No lymphadenopathy. No chest wall mass. ABDOMEN/PELVIS: Motion artifact limits evaluation of the upper abdomen. LIVER, GALLBLADDER, BILIARY TREE: The liver is normal in size, shape, and attenuation. No focal hepatic lesion or biliary ductal dilatation is present. The gallbladder is unremarkable with no evidence of radiopaque gallstones, gallbladder wall thickening, or obvious pericholecystic inflammatory changes. PANCREAS: Fatty atrophy of the pancreas. No mass or surrounding fluid. SPLEEN: Normal size. No focal lesion. ADRENAL GLANDS: Normal; no mass. KIDNEYS AND URETERS: Left renal lower pole intraparenchymal simple fluid attenuating 0.9 cm lesion is unchanged and favored to represent a simple cyst for which no follow-up imaging is recommended. The kidneys are normal in size, shape, and attenuation. No hydronephrosis, hydroureter, or calculi seen. No perinephric stranding. BLADDER: No focal mass or wall thickening seen. No bladder calculi. PELVIC VISCERA: Status post hysterectomy. No adnexal masses. GASTROINTESTINAL TRACT: The small and large bowel are nondilated. Mild scattered colonic diverticulosis without evidence of acute diverticulitis. The appendix is unremarkable. PERITONEAL SPACE: No significant free air or free fluid identified. ABDOMINAL WALL: No significant hernia is appreciated. LYMPHOVASCULAR STRUCTURES: Lymph nodes: Normal. Vascular: The aorta is nonaneurysmal with mild scatter from this calcifications. OSSEOUS STRUCTURES: No acute or suspicious osseous abnormality. Moderate multilevel thoracolumbar spondylosis and degenerative disc disease. Grade 1 anterolisthesis of L4 on L5 and grade 1 retrolisthesis of L5 on S1, as before. CT/CT chest w IV con IMPRESSION: 1. No acute abnormality within the chest, abdomen, or pelvis. 2. There is a 0.5 cm fissural right lower lobe nodule. According to the UPDATED 2017 Fleischner Society recommendations, the advised follow-up imaging for solid nodules < 6 mm is: LOW RISK PATIENT: No routine follow-up. HIGH RISK PATIENT: Optional CT at 12 months. 3. Bilateral heterogeneous thyroid nodules. The right thyroid nodule measures 2 x 1.9 cm, increased from 1.8 cm in 2020. The left thyroid nodule measures 1.3 x 0.8 cm, increased from subcentimeter in 2020. Recommend nonemergent dedicated thyroid ultrasound for further assessment. Electronically signed by: Emily Vasquez DO 06/15/2024 04:51 PM EST
--- NOTE | ~2024-06-15 | CT_ITS ---
EXAMINATION: CT chest w IV con (accession [id number]) CT abdomen pelvis w IV con (accession [id number]) CLINICAL INFORMATION: cough, ?pneumonia, abd pain COMPARISON: CT abdomen/pelvis 04/25/2022, CTA chest 05/16/2021. TECHNIQUE: Multidetector volumetric imaging was performed through the chest, abdomen and pelvis following the administration of 85 mL of Omnipaque 350 intravenous contrast. Sagittal and coronal reformatted images were obtained on the technologist's workstation. Axial MIP volume rendering provided. This CT examination was performed using dose optimization techniques as appropriate, variously including the following: * Automated exposure control * Adjustment of mA and/or kV according to patient size (this includes techniques or standardized protocols for targeted exams where dose is matched to indication/reason for exam; i.e. extremities or head) Use of iterative reconstruction technique DLP: 1741 mGy-cm FINDINGS: CHEST: LUNGS: The central airways are patent. Bibasilar atelectasis. Bilateral dependent subsegmental atelectasis. No focal consolidation or mass. There is a 0.5 cm fissural right lower lobe nodule (series #7 axial image 215). No pleural effusion or pneumothorax. MEDIASTINUM: The heart is globally normal without pericardial effusion. Mild coronary arterial calcifications are present. Central vascular structures are unremarkable. No hilar or mediastinal lymphadenopathy. Bilateral heterogeneous thyroid nodules. The right thyroid nodule measures 2 x 1.9 cm, increased from 1.8 cm in 2020. The left thyroid nodule measures 1.3 x 0.8 cm, increased from subcentimeter in 202 CHEST WALL: No lymphadenopathy. No chest wall mass. ABDOMEN/PELVIS: Motion artifact limits evaluation of the upper abdomen. LIVER, GALLBLADDER, BILIARY TREE: The liver is normal in size, shape, and attenuation. No focal hepatic lesion or biliary ductal dilatation is present. The gallbladder is unremarkable with no evidence of radiopaque gallstones, gallbladder wall thickening, or obvious pericholecystic inflammatory changes. PANCREAS: Fatty atrophy of the pancreas. No mass or surrounding fluid. SPLEEN: Normal size. No focal lesion. ADRENAL GLANDS: Normal; no mass. KIDNEYS AND URETERS: Left renal lower pole intraparenchymal simple fluid attenuating 0.9 cm lesion is unchanged and favored to represent a simple cyst for which no follow-up imaging is recommended. The kidneys are normal in size, shape, and attenuation. No hydronephrosis, hydroureter, or calculi seen. No perinephric stranding. BLADDER: No focal mass or wall thickening seen. No bladder calculi. PELVIC VISCERA: Status post hysterectomy. No adnexal masses. GASTROINTESTINAL TRACT: The small and large bowel are nondilated. Mild scattered colonic diverticulosis without evidence of acute diverticulitis. The appendix is unremarkable. PERITONEAL SPACE: No significant free air or free fluid identified. ABDOMINAL WALL: No significant hernia is appreciated. LYMPHOVASCULAR STRUCTURES: Lymph nodes: Normal. Vascular: The aorta is nonaneurysmal with mild scatter from this calcifications. OSSEOUS STRUCTURES: No acute or suspicious osseous abnormality. Moderate multilevel thoracolumbar spondylosis and degenerative disc disease. Grade 1 anterolisthesis of L4 on L5 and grade 1 retrolisthesis of L5 on S1, as before. CT/CT abdomen pelvis w IV con IMPRESSION: 1. No acute abnormality within the chest, abdomen, or pelvis. 2. There is a 0.5 cm fissural right lower lobe nodule. According to the UPDATED 2017 Fleischner Society recommendations, the advised follow-up imaging for solid nodules < 6 mm is: LOW RISK PATIENT: No routine follow-up. HIGH RISK PATIENT: Optional CT at 12 months. 3. Bilateral heterogeneous thyroid nodules. The right thyroid nodule measures 2 x 1.9 cm, increased from 1.8 cm in 2020. The left thyroid nodule measures 1.3 x 0.8 cm, increased from subcentimeter in 2020. Recommend nonemergent dedicated thyroid ultrasound for further assessment. Electronically signed by: Emily Vasquez DO 06/15/2024 04:51 PM EST
--- NOTE | 2024-06-15 12:08 | ECG_ITS ---
Test Reason : AMS Blood Pressure : / mmHG Vent. Rate : 092 BPM Atrial Rate : 092 BPM P-R Int : 208 ms QRS Dur : 084 ms QT Int : 396 ms P-R-T Axes : 056 040 084 degrees QTc Int : 489 ms Normal sinus rhythm Nonspecific ST and T wave abnormality Abnormal ECG When compared with ECG of 19-NOV-2019 12:28, Inverted T waves have replaced nonspecific T wave abnormality in Lateral leads Referred By: Jeanne Trejo Electronically Signed By:Deven Beyer
[2024-06-15] MEDS: 0.9 % Sodium Chloride 1,000 ML 999 ML IV (12:36)
[2024-06-15 12:37] LABS: MANUAL DIFF FLAG NO
[2024-06-15 12:38] LABS: Basophils Absolute Auto 0.1 X10*3/uL (0.0-0.2); Basophils Percent Auto 0.3 % (0-2); Hematocrit 40.6 % (37.0-47.0); Imm Gran Abs Auto 0.18 X10*3/uL (0.00-0.03); Lymphocytes Absolute Auto 1.7 X10*3/uL (1.2-4.9); Lymphocytes Percent Auto 9.1 % (20-40); Mean Corpuscular HGB Conc 34.5 g/dl (31.0-35.0); Mean Corpuscular Hemoglobin 30.6 pg (27.0-33.0); Mean Corpuscular Volume 88.6 fL (80.0-98.0); Mean Platelet Volume 9.2 fL (9.4-12.3); Monocytes Percent Auto 5.7 % (2-11); Neutrophils Absolute Auto 15.3 x10*3/uL (2.0-8.3); Neutrophils Percent Auto 83.9 % (45-73); Platelet Count 228 X10*3/uL (160-400); Red Blood Count 4.58 X10*6/uL (4.20-5.50); Red Cell Distribution Width 13.2 % (11.0-16.0); White Blood Count 18.2 X10*3/uL (4.8-10.8)
--- NOTE | 2024-06-15 12:41 | PC.NURSE ---
IV established, labs obtained and sent. patient unable to answer questions appropriately, continues to state I have MS . collared by EMS. in ct scan at this time. patient mouth appears dry. unknown downtime from ?fall. found by neighbor this morning per EMS.
[2024-06-15 12:43] LABS: INTERNATIONAL NORM RATIO 1.1 (0.9-1.1); Prothrombin Time 12.4 SEC (10.9-12.4)
[2024-06-15] MEDS: Labetalol HCL 100 MG/20 ML VIAL IVPUSH ×3 (13:03→18:36)
[2024-06-15 13:05] LABS: Lactic Acid 1.8 mmol/L (0.5-2.0)
[2024-06-15 13:06] LABS: Alanine Aminotransferase 30 U/L (0-31); Albumin Level 4.7 g/dL (3.5-5.0); Alkaline Phosphatase 82 U/L (39-117); Anion Gap 26 (12-20); Aspartate Amino Transferase 84 U/L (5-31); Bilirubin Total 0.4 mg/dL (0.0-1.0); Blood Urea Nitrogen 30 mg/dL (9-16); Calcium 9.8 mg/dL (8.4-10.2); Carbon Dioxide 13 mmol/L (22-29); Chloride 109 mmol/L (96-108); Creatinine Clr Calc Pharmacy 40.5; Estimated Glomerular Filt Rate 34; Glucose Random 83 mg/dL (60-115); Potassium 4.5 mmol/L (3.3-5.1); Sodium 143 mmol/L (135-145); Total Protein 8.6 g/dL (6.5-8.0)
[2024-06-15 13:11] LABS: Appearance Urine Clear; Color Urine Yellow; Glucose Urine UA Negative (Negative); Leukocyte Esterase Urine Negative (Negative); Nitrite Urine Negative (Negative); PH 5.5 (5.0-9.0); Specific Gravity - Urine >= 1.030 (1.005-1.025); UMIC TRIGGER UACC YES; Urine Blood Large (3+) (Negative); Urine Ketones 80 mg/dL (Negative); Urine Protein 300 (3+) mg/dL (Neg-Trace)
[2024-06-15] MEDS: Piperacillin Sodium/Tazobactam 3.375 GM in 0.9 % Sodium Chloride 50 ML IV (13:16)
[2024-06-15 13:20] LABS: Bacteria Urine None Seen (None Seen); RBC Urine 0-2 /HPF (0-2); Squamous Epithelial Cell Urine 0-2 /HPF (0-2); WBC Urine 0-5 /HPF (0-5)
--- NOTE | 2024-06-15 13:21 | PC.NURSE ---
continues to be altered, pulling at c-collar. continues to remove blankets and requesting it be removed .
[2024-06-15 13:23] LABS: Troponin-I High Sensitivity 30.6 ng/L (<3.5-17.0)
--- NOTE | 2024-06-15 13:26 | ED_ITS ---
HPI - Altered Mental Status General Chief Complaint: Altered Mental Status Stated Complaint: FALL/UNK DOWN TIME PER EMS Time Seen by Provider: 06/15/24 12:08 Source: EMS Mode of arrival: EMS History of Present Illness ED Provider: Neil AUGUSTE narrative: 68-year-old female who is brought in by EMS, patient is not able to successfully provide any history, EMS states the patient was found by her neighbor, unknown downtime. Related Data Home Medications ?Medication ?Instructions ?Recorded ?Confirmed ergocalciferol (vitamin D2) 1,250 1,250 mcg PO QWEEK 06/05/20 10/15/23 mcg (50,000 unit) capsule lorazepam 0.5 mg tablet 0.5 mg PO BID PRN Anxiety 06/05/20 10/15/23 zolpidem 10 mg tablet 10 mg PO BEDTIME PRN Sleep 06/05/20 10/15/23 quetiapine 50 mg tablet 50 mg PO BEDTIME 08/08/20 10/15/23 baclofen 10 mg tablet 10 mg PO BID 07/25/23 10/15/23 ocrelizumab 30 mg/mL intravenous 600 mg IV [id number] 07/25/23 10/15/23 solution (Ocrevus) oxcarbazepine 300 mg tablet 450 mg PO BID 07/25/23 10/15/23 solifenacin 10 mg tablet (Vesicare) 10 mg PO DAILY 07/25/23 10/15/23 sertraline 100 mg tablet 200 mg PO DAILY 10/09/23 10/15/23 quetiapine 100 mg tablet 100 mg PO BEDTIME 12/31/23 prazosin 1 mg capsule 1 mg PO BEDTIME 04/15/24 Previous Rx's ?Medication ?Instructions ?Recorded diltiazem HCl 120 mg 120 mg PO DAILY #90 caps 06/17/23 capsule,extended release 24 hr ibuprofen 200 mg tablet 400 mg (2 x 200 mg) PO TID PRN 06/27/23 fever or pain #270 tabs omeprazole 20 mg capsule,delayed 20 mg PO BID #180 caps 10/07/23 release metoprolol tartrate 25 mg tablet 37.5 mg (1.5 x 25 mg) PO BID 30 02/04/24 days #90 tabs oxycodone 5 mg tablet 5 mg PO BID pain 30 days #60 tabs 06/04/24 Allergies Allergy/AdvReac Type Severity Reaction Status Date / Time prochlorperazine [Compazine] Allergy Severe Dystonic Verified 06/15/24 12:12 Reaction cobalt [COBALT] Allergy Intermediate RASH Verified 06/15/24 12:12 hydrocodone [Vicodin] Allergy Intermediate Nausea and Verified 06/15/24 12:12 Vomiting nickel [NICKEL] Allergy Intermediate RASH Verified 06/15/24 12:12 ondansetron [Zofran] Allergy Intermediate Hives Verified 06/15/24 12:12 morphine AdvReac Intermediate Nausea and Verified 06/15/24 12:12 Vomiting Review of Systems 2 Review of Systems: Not able to be provided by patient Yes Unobtainable due to mental condition PMFSH Past Medical History Source: nursing notes reviewed Medical History Urinary incontinence Anxiety Anxiety COVID-19 Osteoarthritis of right knee Essential hypertension SVT (supraventricular tachycardia) Depression History of kidney problems Paroxysmal SVT (supraventricular tachycardia) History of confusion Urgency of micturition Memory difficulties Arthritis History of dysphagia Multiple sclerosis GERD (gastroesophageal reflux disease) Anxiety Hypertension Pain syndrome, chronic Disc degeneration, lumbar 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, bilateral Surgical History Hx of hysterectomy History of surgery on left wrist Deficient knowledge of leg surgery History of rotator cuff surgery History of left knee surgery History of myomectomy History of appendectomy Family History Family History Mother Diabetes Kidney failure Father AAA (abdominal aortic aneurysm, ruptured) Family/Other Mental health disorder Substance use disorder Social History Social History Household Members: None Housing: House Are you a primary housekeeper child care to a significant other at home: No Do you presently have visiting nurse or other home services: No (great nephew lives upstairs and helps. has had VNA and elder care in past) Alcohol intake: current Alcohol intake frequency: holidays/special occasions only Comment: Tolerable right knee pain per pt. Patient Tobacco Use Status: Never used Tobacco e-Cigarette/Vaping Use: Never Used Second Hand Smoke Exposure: No Advance Directives: Yes Advance Directives on File: Yes Advance Directives Date on File: 05/16/21 Do you have a plan to hurt others: No Plan service: No Current occupational status: retired and disabled Cognitive needs: Yes (walker) Hearing needs: No Vision needs: Yes (glasses) Physical Exam ED Vital Signs: Vital Signs - 24 hr 06/15/24 12:11 06/15/24 13:26 06/15/24 15:11 Temperature 96.9 F Pulse Rate 98 87 99 Respiratory Rate 24 H 26 H Blood Pressure 209/108 H 191/98 H 209/110 H Pulse Oximetry 99 Oxygen Delivery Method Room Air 06/15/24 15:47 Temperature 97.1 F Pulse Rate 90 Respiratory Rate 22 H Blood Pressure 187/90 H Pulse Oximetry 98 Oxygen Delivery Method Room Air BMI result Body Mass Index 34.3 VITAL SIGNS: Reviewed. GENERAL: Well developed, well nourished, in no acute distress. HEAD: Normocephalic/atraumatic EYES: PERRLA, EOMI EARS: Ext canals without abnormality NOSE: Nares patent bilateral OROPHARYNX: no oral lesions noted, posterior pharynx clear, dry mucosa NECK: Supple, no adenopathy LUNGS: Normal breath sounds. No adventitious sounds or accessory muscle use. SpO2<99> CARDIOVASCULAR: Regular rate and rhythm without noted murmurs, no JVD or lower extremity edema. ABDOMEN: Soft, non-tender, non-distended with bowel sounds. MUSCULOSKELETAL: No tenderness, deformities, or effusions noted on gross inspection. EXTREMITIES: No cyanosis, clubbing or edema. SKIN: Inspection of the skin reveals no rashes NEUROLOGIC: Alert and oriented x 1. Strength and sensation to light touch were grossly intact x 4, no facial asymmetry. Medications Administered Discontinued Medications Generic Name Dose Route Start Last Admin Trade Name Freq PRN Reason Stop Dose Admin Sodium Chloride 1,000 mls @ 999 mls/hr 06/15/24 12:15 06/15/24 13:55 Ns IV 06/15/24 13:15 Infused .Q1H1M EDUARD Infusion Piperacillin Sod/Tazobactam 50 mls @ 100 mls/hr 06/15/24 13:03 06/15/24 13:55 Sod 3.375 gm/ Sodium Chloride IV 06/15/24 13:32 Infused ONCE ONE Infusion Iohexol 100 ml 06/15/24 14:28 06/15/24 14:28 Iohexol 350 Mg/Ml 100 Ml Infus..Btl IV 06/15/24 14:29 85 ml ONCE ONE Administration Labetalol HCl 5 mg 06/15/24 12:21 06/15/24 13:03 Labetalol Hcl 100 Mg/20 Ml Vial IVPUSH 06/15/24 12:22 5 mg ONCE ONE Administration Labetalol HCl 5 mg 06/15/24 15:01 06/15/24 15:11 Labetalol Hcl 100 Mg/20 Ml Vial IVPUSH 06/15/24 15:02 5 mg ONCE ONE Administration Medical Decision Making Medical Decision Making MDM Narrative: 68-year-old female with history and clinical presentation of altered mental status, otherwise no focal findings. INTERVENTION: IVF, Labetalol, antibiotics EKG: Normal sinus rhythm, HR-92, no STEMI, ND at upper limits, QRS within normal limits and QTC is prolonged, QT is within normal limits. 1330: Will give IV fluids, antibiotics 1346: CT of the head negative for intracranial hemorrhage or mass effect, C- spine is also negative for any fractures or subluxation. I reviewed and interpreted all investigations and there is a leukocytosis which was treated with IV fluids as well as antibiotics though component of this may be secondary to hemoconcentration. There is no anemia or thrombocytopenia. Coagulation studies are within normal limits. There is an KATIANA as well as a metabolic acidosis with anion gap. The latter is likely a combination of dehydration and rhabdomyolysis which is also contributed to the elevation of the high sensitivity troponin as there are no EKG findings to suggest ischemic changes. Patient underwent straight catheterization for urine sample which demonstrates no evidence of urinary tract infection but presence of blood likely contributed to the procedure itself. Viral testing is negative for COVID- 19/influenza/RSV. My interpretation of CT of the chest is there is no evidence infiltrate or mass. CT abd/pelvis without evidence of obstruction/diverticulitis, no obvious free air or free fluid. Official read is pending. Suspect patient's condition may be combination of behavioral and underlying medical contribution. These findings are not consistent with MS flare. I discussed with inpatient hospitalist who accepts admission. 1657: Official read confirms no intrathoracic or intra-abdominal findings. Differential Diagnosis See above Admission/Observation Consideration of admission/observation: Escalation of care including admission/observation considered After review all workup patient does meet inpatient level of care Consult Healthcare Provider Management of the patient was discussed with: Hospitalist See above Lab Data MDM Lab Attestation statement: I reviewed the patient's lab results. See above 06/15/24 12:30 06/15/24 12:30 Labs: Lab Results 06/15/24 06/15/24 06/15/24 Range/Units 12:30 12:37 12:59 WBC 18.2 H (4.8-10.8) X10*3/uL RBC 4.58 D (4.20-5.50) X10*6/uL Hgb 14.0 D (12.0-16.0) g/dl Hct 40.6 D (37.0-47.0) % MCV 88.6 (80.0-98.0) fL MCH 30.6 (27.0-33.0) pg MCHC 34.5 (31.0-35.0) g/dl RDW 13.2 (11.0-16.0) % Plt Count 228 D (160-400) X10*3/uL MPV 9.2 L (9.4-12.3) fL Immature Gran % (Auto) 1.0 H (0.0-0.4) % Neut % (Auto) 83.9 H (45-73) % Lymph % (Auto) 9.1 L (20-40) % [place] % (Auto) 5.7 (2-11) % Eos % (Auto) 0.0 (0-4) % Baso % (Auto) 0.3 (0-2) % Lymph # (Auto) 1.7 (1.2-4.9) X10*3/uL [place] # (Auto) 1.0 (0.1-1.2) X10*3/uL Eos # (Auto) 0.0 (0.0-0.4) X10*3/uL Baso # (Auto) 0.1 (0.0-0.2) X10*3/uL Abs Immat Gran (auto) 0.18 H (0.00-0.03) X10*3/uL Absolute Neuts (auto) 15.3 H (2.0-8.3) x10*3/uL Absolute Nucleated RBC 0.000 (0.0-0.012) X10*3/uL Nucleated RBC % (auto) 0.0 (0.0-0.2) /100WBC PT 12.4 (10.9-12.4) SEC INR 1.1 (0.9-1.1) Sodium 143 (135-145) mmol/L Potassium 4.5 (3.3-5.1) mmol/L Chloride 109 H (96-108) mmol/L Carbon Dioxide 13 L (22-29) mmol/L Anion Gap 26 H (12-20) BUN 30 H (9-16) mg/dL Creatinine 1.51 H (0.5-1.4) mg/dL Estim Creat Clear Calc 40.5 Estimated GFR 34 Random Glucose 83 (60-115) mg/dL Lactic Acid 1.8 (0.5-2.0) mmol/L Calcium 9.8 D (8.4-10.2) mg/dL Magnesium 2.1 (1.6-2.6) mg/dL Total Bilirubin 0.4 (0.0-1.0) mg/dL AST 84 H (5-31) U/L ALT 30 (0-31) U/L Alkaline Phosphatase 82 (39-117) U/L Ammonia (13-55) umol/L Total Creatine Kinase 2022 H (26-140) U/L Troponin I High Sens 30.6 H (<3.5-17.0) ng/L Total Protein 8.6 H (6.5-8.0) g/dL Albumin 4.7 (3.5-5.0) g/dL Urine Color Yellow Urine Appearance Clear Urine pH 5.5 (5.0-9.0) Ur Specific [place] >= 1.030 H (1.005-1.025) Urine Protein 300 (3+) H (Neg-Trace) mg/dL Urine Glucose (UA) Negative (Negative) mg/dL Urine Ketones 80 (Negative) mg/dL Urine Blood Large (3+) H (Negative) Urine Nitrite Negative (Negative) Ur Leukocyte Esterase Negative (Negative) Urine RBC 0-2 (0-2) /HPF Urine WBC 0-5 (0-5) /HPF Ur Squamous Epith Cells 0-2 (0-2) /HPF Urine Bacteria None Seen (None Seen) Hyaline Casts 3-5 (0-2) /LPF Influenza Type A (PCR) NEGATIVE (Negative) Influenza Type B (PCR) NEGATIVE (Negative) RSV RNA Qual (PCR) NEGATIVE (Negative) SARS-CoV-2 RNA (RT-PCR) NEGATIVE (Negative) 06/15/24 Range/Units 14:14 WBC (4.8-10.8) X10*3/uL RBC (4.20-5.50) X10*6/uL Hgb (12.0-16.0) g/dl Hct (37.0-47.0) % MCV (80.0-98.0) fL MCH (27.0-33.0) pg MCHC (31.0-35.0) g/dl RDW (11.0-16.0) % Plt Count (160-400) X10*3/uL MPV (9.4-12.3) fL Immature Gran % (Auto) (0.0-0.4) % Neut % (Auto) (45-73) % Lymph % (Auto) (20-40) % [place] % (Auto) (2-11) % Eos % (Auto) (0-4) % Baso % (Auto) (0-2) % Lymph # (Auto) (1.2-4.9) X10*3/uL [place] # (Auto) (0.1-1.2) X10*3/uL Eos # (Auto) (0.0-0.4) X10*3/uL Baso # (Auto) (0.0-0.2) X10*3/uL Abs Immat Gran (auto) (0.00-0.03) X10*3/uL Absolute Neuts (auto) (2.0-8.3) x10*3/uL Absolute Nucleated RBC (0.0-0.012) X10*3/uL Nucleated RBC % (auto) (0.0-0.2) /100WBC PT (10.9-12.4) SEC INR (0.9-1.1) Sodium (135-145) mmol/L Potassium (3.3-5.1) mmol/L Chloride (96-108) mmol/L Carbon Dioxide (22-29) mmol/L Anion Gap (12-20) BUN (9-16) mg/dL Creatinine (0.5-1.4) mg/dL Estim Creat Clear Calc Estimated GFR Random Glucose (60-115) mg/dL Lactic Acid (0.5-2.0) mmol/L Calcium (8.4-10.2) mg/dL Magnesium (1.6-2.6) mg/dL Total Bilirubin (0.0-1.0) mg/dL AST (5-31) U/L ALT (0-31) U/L Alkaline Phosphatase (39-117) U/L Ammonia 52 (13-55) umol/L Total Creatine Kinase (26-140) U/L Troponin I High Sens (<3.5-17.0) ng/L Total Protein (6.5-8.0) g/dL Albumin (3.5-5.0) g/dL Urine Color Urine Appearance Urine pH (5.0-9.0) Ur Specific [place] (1.005-1.025) Urine Protein (Neg-Trace) mg/dL Urine Glucose (UA) (Negative) mg/dL Urine Ketones (Negative) mg/dL Urine Blood (Negative) Urine Nitrite (Negative) Ur Leukocyte Esterase (Negative) Urine RBC (0-2) /HPF Urine WBC (0-5) /HPF Ur Squamous Epith Cells (0-2) /HPF Urine Bacteria (None Seen) Hyaline Casts (0-2) /LPF Influenza Type A (PCR) (Negative) Influenza Type B (PCR) (Negative) RSV RNA Qual (PCR) (Negative) SARS-CoV-2 RNA (RT-PCR) (Negative) Independent Interpretation I performed an independent interpretation of an: EKG and CT Scan Interpretation: See above Chronic Conditions Patient?s care impacted by: Hypertension Critical Care Time Critical Care Time Critical Care Time: Yes Total Critical Care Time: 60 Attestation: I personally attest to this time spent taking care of the patient. Discharge Plan Discharge Clinical Impression: KATIANA (acute kidney injury), Altered mental status, Rhabdomyolysis Patient Disposition: Admitted As Inpatient Print Language: Syriac
[2024-06-15 13:32] LABS: Influenza A PCR NEGATIVE (Negative); Influenza B PCR NEGATIVE (Negative); Resp Syncy Virus RNA Qual PCR NEGATIVE (Negative); SARS COV2 PCR INHOUSE NEGATIVE (Negative)
[2024-06-15] MEDS: iohexoL 350 MG/ML 100 ML INFUS..BTL IV (14:28)
[2024-06-15 14:29] LABS: Ammonia 52 umol/L (13-55)
[2024-06-15 14:33] LABS: Magnesium 2.1 mg/dL (1.6-2.6)
--- NOTE | 2024-06-15 15:14 | PC.NURSE ---
previously straight cath for urine sample, 300mL output. patient stating that she has not had any urine output since last night - was told she had 300mL output of urine. pointing in mouth at tongue, when asked what she was pointing at, continues to point. encouraged patient to use her words to attempt to explain what is happening with her mouth, continues to point at tongue. states she is in anaphylactic shock I know what I am talking about . oxygen 98% on room air, speaking in full clear sentences. medicated per the MAR for htn .
--- NOTE | 2024-06-15 15:42 | PC.NURSE ---
bladder scan - 225mL
--- NOTE | 2024-06-15 16:52 | P.HPHOSP_ITS ---
History of Present Illness Date of Service: 06/15/24 Attending physician on admission: Wander Farooq Chief Complaint: AMS w/?Fall at home Pt is a 68-year-old female with a PMH significant for?HTN, HLD, MS, osteoarthritis, chronic pain syndrome, hx of paroxysmal SVT, dysphagia, GERD, and depression who presents to the ED after being found with AMS and on the floor by a neighbor with an unknown down time. Pt is acutely encephalopathic?at time of interview and exam, rambling constantly and nonsensically. Patient apparently thinks there is a ?black Internet? and a ?red Internet? that is constantly scanning her, and she is currently in ?anaphylactic shock to the main Internet?. Patient also appears to be experiencing visual hallucinations. HPI is thus obtained from family who was contacted via phone. Spoke primarily to patient's grand nephew Jeffry ([phone]) who the patient called last night. Patient appeared altered during that conversation and apparently ?rambled? for an hour and a half, jumping from topic to topic. Patient apparently had not slept in at least 48 hours. Family notes patient's mental health has deteriorated rather significantly recently. Patient apparently is almost always confused at baseline and has been having difficulties comprehending instructions or the severity of situations. Nephew notes [facility] is currently threatening to take patient's house away from her. Family is also worried about patient's dependence on alcohol, especially when used in conjunction with her home medications. Family believes she drinks daily, though they are unclear how much or how often. In the ED pt was tachypneic up to 26, hypertensive up to 209/110, and with elevated HR up to 99. Labs were significant for leukocytosis 18.2, anion gap 26, BUN 30, creatinine 1.51 (baseline around 1.00), AST 84, CPK 2022, and initial troponin 30.6. Stable H&H. No significant electrolyte abnormalities. Ammonia WNL at 52. Lactic acid WNL at 1.8. UA negative for UTI. Tested negative for flu, COVID, RSV. CT of head negative for acute intracranial pathology. CT of cervical spine negative for acute fracture or subluxation. CT of chest, abdomen, and pelvis negative for acute abnormality. Did find increased thyroid nodules. EKG demonstrated normal sinus rhythm of 92 with QTc [address] and T-wave abnormalities. Pt was treated with IVF, labetalol, and Zosyn. Pt will be admitted to the hospital for treatment and further evaluation of KATIANA and rhabdomyolysis in the setting of acute encephalopathy with fall at home with unknown downtime. Review of Systems 2 Review of Systems: Yes Unobtainable due to mental status [facility] Medical History Urinary incontinence Anxiety Anxiety COVID-19 Osteoarthritis of right knee Essential hypertension SVT (supraventricular tachycardia) Depression History of kidney problems Paroxysmal SVT (supraventricular tachycardia) History of confusion Urgency of micturition Memory difficulties Arthritis History of dysphagia Multiple sclerosis GERD (gastroesophageal reflux disease) Anxiety Hypertension Pain syndrome, chronic Disc degeneration, lumbar 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, bilateral Family History Mother Diabetes Kidney failure Father AAA (abdominal aortic aneurysm, ruptured) Family/Other Mental health disorder Substance use disorder Surgical History Hx of hysterectomy History of surgery on left wrist Deficient knowledge of leg surgery History of rotator cuff surgery History of left knee surgery History of myomectomy History of appendectomy Social History Household Members: None Housing: House Are you a primary child care nurse to a significant other at home: No Do you presently have visiting nurse or other home services: No (great nephew lives upstairs and helps. has had VNA and elder care in past) Unable to assess alcohol history related to: Unable to respond Alcohol intake: current Alcohol intake frequency: holidays/special occasions only Comment: Tolerable right knee pain per pt. Patient Tobacco Use Status: Never used Tobacco e-Cigarette/Vaping Use: Never Used Second Hand Smoke Exposure: No Advance Directives: Yes Advance Directives on File: Yes Advance Directives Date on File: 05/16/21 Do you have a plan to hurt others: No Plan service: No Current occupational status: retired and disabled Cognitive needs: Yes (walker) Hearing needs: No Vision needs: Yes (glasses) Meds Allergies Allergy/AdvReac Type Severity Reaction Status Date / Time prochlorperazine [Compazine] Allergy Severe Dystonic Verified 06/15/24 12:12 Reaction cobalt [COBALT] Allergy Intermediate RASH Verified 06/15/24 12:12 hydrocodone [Vicodin] Allergy Intermediate Nausea and Verified 06/15/24 12:12 Vomiting nickel [NICKEL] Allergy Intermediate RASH Verified 06/15/24 12:12 ondansetron [Zofran] Allergy Intermediate Hives Verified 06/15/24 12:12 morphine AdvReac Intermediate Nausea and Verified 06/15/24 12:12 Vomiting Home Medications ?Medication ?Instructions ?Recorded ?Confirmed ?Last Taken ?Type ergocalciferol (vitamin D2) 1,250 1,250 mcg PO QWEEK 06/05/20 06/15/24 Unknown History mcg (50,000 unit) capsule lorazepam 0.5 mg tablet 0.5 mg PO BID PRN Anxiety 06/05/20 06/15/24 10/27/20 05:30 History zolpidem 10 mg tablet 10 mg PO BEDTIME PRN Sleep 06/05/20 06/15/24 Unknown History baclofen 10 mg tablet 10 mg PO DAILY 07/25/23 06/15/24 Unknown History ocrelizumab 30 mg/mL intravenous 600 mg IV [id number] 07/25/23 10/15/23 Unknown History solution (Ocrevus) oxcarbazepine 300 mg tablet 300 mg PO BID 07/25/23 06/15/24 Unknown History solifenacin 10 mg tablet (Vesicare) 10 mg PO DAILY 07/25/23 06/15/24 Unknown History sertraline 100 mg tablet 200 mg PO DAILY 10/09/23 06/15/24 Unknown History quetiapine 100 mg tablet 100 mg PO BEDTIME 12/31/23 06/15/24 Unknown History prazosin 1 mg capsule 1 mg PO BEDTIME 04/15/24 06/15/24 Unknown History baclofen 10 mg tablet 20 mg PO BEDTIME 06/15/24 06/15/24 Unknown History oxcarbazepine 150 mg tablet 150 mg PO BID 06/15/24 06/15/24 Unknown History Physical Exam 2 Vital Signs and Narrative: Vital Signs: Last Vital Signs Temp 97.1 F 06/15/24 15:47 Pulse 90 06/15/24 15:47 Resp 22 H 06/15/24 15:47 BP 187/90 H 06/15/24 15:47 Pulse Ox 98 06/15/24 15:47 O2 Del Method Room Air 06/15/24 15:47 BMI result Body Mass Index 34.3 Constitutional: Alert, agitated, confused, unkempt. Mental Status: Oriented to person only. Appears to be hallucinating. Eyes: Pupils are equal, round, and reactive to light. Ear, Nose, and Throat: Oropharynx clear, mucous membranes moist. Ears and nose without deformities. Trachea midline. Poor dentition. Respiratory: Clear to auscultation bilaterally. No wheezing, rales, or rhonchi. Cardiovascular: S1, S2 regular rhythm, tachycardic. No murmurs, rubs, or gallops. Gastrointestinal: Abdomen soft, non-tender, non-distended. Normal bowel sounds. Neurologic: Cranial nerves II-XII are grossly intact bilaterally. No focal neurological deficits. Moves all extremities spontaneously. Pt appears tremulous Skin: Warm, dry. Extremities: No edema. Psychiatric: Confused, altered, agitated, hallucinating, appears actively manic Results Labs 06/15/24 12:30 06/15/24 18:50 Labs: Laboratory Results - last 24 hr 06/15/24 06/15/24 06/15/24 12:30 12:37 12:59 MCV 88.6 MCH 30.6 MCHC 34.5 RDW 13.2 Plt Count 228 D MPV 9.2 L Immature Gran % (Auto) 1.0 H Neut % (Auto) 83.9 H Lymph % (Auto) 9.1 L [place] % (Auto) 5.7 Eos % (Auto) 0.0 Baso % (Auto) 0.3 Lymph # (Auto) 1.7 Churchill # (Auto) 1.0 Eos # (Auto) 0.0 Baso # (Auto) 0.1 Abs Immat Gran (auto) 0.18 H Absolute Neuts (auto) 15.3 H Absolute Nucleated RBC 0.000 Nucleated RBC % (auto) 0.0 PT 12.4 INR 1.1 Anion Gap 26 H Estim Creat Clear Calc 40.5 Estimated GFR 34 Random Glucose 83 Lactic Acid 1.8 Calcium 9.8 D Magnesium 2.1 Total Bilirubin 0.4 AST 84 H ALT 30 Alkaline Phosphatase 82 Ammonia Total Creatine Kinase 2022 H Troponin I High Sens 30.6 H Total Protein 8.6 H Albumin 4.7 Urine Color Yellow Urine Appearance Clear Urine pH 5.5 Ur Specific [place] >= 1.030 H Urine Protein 300 (3+) H Urine Glucose (UA) Negative Urine Ketones 80 Urine Blood Large (3+) H Urine Nitrite Negative Ur Leukocyte Esterase Negative Urine RBC 0-2 Urine WBC 0-5 Ur Squamous Epith Cells 0-2 Urine Bacteria None Seen Hyaline Casts 3-5 Influenza Type A (PCR) NEGATIVE Influenza Type B (PCR) NEGATIVE RSV RNA Qual (PCR) NEGATIVE SARS-CoV-2 RNA (RT-PCR) NEGATIVE 06/15/24 14:14 MCV MCH MCHC RDW Plt Count MPV Immature Gran % (Auto) Neut % (Auto) Lymph % (Auto) [place] % (Auto) Eos % (Auto) Baso % (Auto) Lymph # (Auto) Churchill # (Auto) Eos # (Auto) Baso # (Auto) Abs Immat Gran (auto) Absolute Neuts (auto) Absolute Nucleated RBC Nucleated RBC % (auto) PT INR Anion Gap Estim Creat Clear Calc Estimated GFR Random Glucose Lactic Acid Calcium Magnesium Total Bilirubin AST ALT Alkaline Phosphatase Ammonia 52 Total Creatine Kinase Troponin I High Sens Total Protein Albumin Urine Color Urine Appearance Urine pH Ur Specific [place] Urine Protein Urine Glucose (UA) Urine Ketones Urine Blood Urine Nitrite Ur Leukocyte Esterase Urine RBC Urine WBC Ur Squamous Epith Cells Urine Bacteria Hyaline Casts Influenza Type A (PCR) Influenza Type B (PCR) RSV RNA Qual (PCR) SARS-CoV-2 RNA (RT-PCR) Imaging Radiologist's Impressions: Impressions Cervical Spine CT 06/15/24 12:10 IMPRESSION: Multilevel advanced degenerative change. No fracture or acute findings. Fleischner guidelines were followed. Electronically signed by: Juve Tidwell MD 06/15/2024 01:41 PM EST RP Head CT 06/15/24 12:38 IMPRESSION: No acute intracranial pathology. Electronically signed by: Juve Tidwell MD 06/15/2024 01:35 PM EST RP Assessment and Plan (1) Rhabdomyolysis: Status: Acute (2) Altered mental status: Status: Acute (3) KATIANA (acute kidney injury): Status: Acute Plan Pt is a 68-year-old female with a PMH significant for?HTN, HLD, MS, osteoarthritis, chronic pain syndrome, hx of paroxysmal SVT, dysphagia, GERD, and depression who presents to the ED after being found with AMS and on the floor by a neighbor with an unknown down time. Pt will be admitted to the hospital for treatment and further evaluation of KATIANA and rhabdomyolysis in the setting of acute encephalopathy with fall at home with unknown downtime. KATIANA Creatinine 1.51 at time of presentation, baseline around 1.00 Likely prerenal in the setting of hypovolemia Patient received IVF in the ED Will place on maintenance fluids Monitor renal function Rhabdomyolysis CPK 2021 at time of presentation Patient with fall at home with unknown downtime Patient received IVF in the ED Will place on maintenance fluids Follow CPK Acute encephalopathy Patient noted to be encephalopathic last night, has been hallucinating, with pressured speech, difficult to redirect Patient apparently has not slept in at least 48 hours Unclear etiology: Metabolic versus psychogenic No clear source of infection; ammonia WNL Family note pt's mental health has been recently deteriorating Unclear if patient has been taking her medications Patient with unknown psychiatric history, no inpatient psych admissions here Will check acetaminophen, urine drug screen, ethanol level, salicylate level, and TSH Treat as above Will continue patient's home mood stabilizers Monitor mentation Consider Psychiatry consult if mentation does not improve Leukocytosis WBC 18.2 at time of presentation Likely reactionary in the setting of above, not sepsis Tachycardia secondary to pain/trauma from fall, or even possibly secondary to alcohol withdrawal No clear source of acute infection: UA negative, RSV/COVID/flu negative, CTs of head/chest/abdomen/pelvis negative, skin check negative No indication to continue antibiotics at this time Hypertensive urgency Patient's BP as high as 209/110 Patient given labetalol 5 mg x2 doses in the ED Continue home metoprolol and diltiazem Labetalol 5 mg IV for SBP >170 Elevated troponin Initial troponin 30.6 Patient asymptomatic, EKG nonischemic Will check 2nd troponin Alcohol dependence Family report pt likely drinks daily, amount unknown Monitor on CIWA Low threshold to start phenobarb protocol Check ehtyl alcohol levels Thyroid nodules CT of chest showed bilateral heterogeneous thyroid nodules, increased from prior study in 2020 Outpatient follow up for non emergent ultrasound Will check TSH Diet/hx of dysphagia Chopped/Advanced (NDD3) diet for now Speech swallow evaluation Chronic pain syndrome Continue oxycodone Mood disorder Continue home meds as above Full Code Attending:?Dr. Farooq DVT Prophylaxis: Lovenox Pt will require a hospitalization of at least two nights for treatment of?KATIANA and rhabdomyolysis in the setting of acute encephalopathy with fall at home with unknown downtime. Patient require administration of IVF as well as close monitoring of BP, mentation, and labs. Quality Stroke Does the patient have a stroke diagnosis?: No VTE Prior VTE?: No VTE Risk Level:: Medical - moderate - high VTE Device Contraindication: Treatment Not Indicated VTE Drug Contraindication: N/A - Med Ordered
--- NOTE | 2024-06-15 17:48 | PHA.MEDREC ---
Addendum entered by Tae Lawson [facility] 06/15/24 18:01: med rec reviewed Original Note: Pharmacy Consult ? Medication Reconciliation Pharmacy has completed the medication reconciliation. couldn't talk to patient because she is (AMS). Called HCP Brett to confirm med list, however he states he doesn't talk to patient any longer. Last time he spoke to patient was over six moths. Brett did state his son still speaks to her , however son didn't know what medications patients takes.Utilized claims to confirm med list.
--- NOTE | 2024-06-15 18:29 | PC.NURSE ---
found to be incontinent of urine, linens changed and repositioned in bed. continues to be altered. provider spoke with family, ?daily etoh use
[2024-06-15] MEDS: Thiamine HCL 250 MG in 0.9 % Sodium Chloride 100 ML 204 MG IV (18:33)
[2024-06-15] MEDS: Lactated Ringers 1,000 ML 100 ML IVCONT (18:34)
[2024-06-15] MEDS: Enoxaparin Sodium 40 MG/0.4 ML SYRINGE SUBCUT (18:34)
[2024-06-15 19:00] LABS: VBG Base Excess -11.6 mmol/L; VBG HCO3 15 mmol/L (22-26); VBG pCO2 35 mmHg; VBG pH 7.22 (7.32-7.43); VBG pO2 39 mmHg
[2024-06-15 19:02] LABS: Venous Blood Gas Refer to POC result
[2024-06-15 19:06] LABS: Osmolality, Serum 309 mosm/kg (281-305)
[2024-06-15 19:12] LABS: Anion Gap 25 (12-20); Beta-Hydroxybutyrate 5.69 mmol/L (0.02-0.27); Blood Urea Nitrogen 26 mg/dL (9-16); Calcium 9.6 mg/dL (8.4-10.2); Carbon Dioxide 14 mmol/L (22-29); Chloride 108 mmol/L (96-108); Estimated Glomerular Filt Rate 38; Ethanol < 10 mg/dL; Glucose Random 73 mg/dL (60-115); Potassium 4.3 mmol/L (3.3-5.1); Sodium 143 mmol/L (135-145)
[2024-06-15 19:14] LABS: Acetaminophen LAB < 3 mcg/mL (<30); Salicylate < 5.0 mg/dL (15-30)
[2024-06-15 19:29] LABS: Troponin-I High Sensitivity 61.7 ng/L (<3.5-17.0)
[2024-06-15 19:34] LABS: TSH reflex Free T4 1.05 uIU/mL (0.32-4.0)
[2024-06-15] MEDS: Prazosin HCL 1 MG CAPSULE PO (21:40)
[2024-06-15 23:44] LABS: Troponin-I High Sensitivity 88.7 ng/L (<3.5-17.0)
[2024-06-16] VITALS (9 sets, daily range): BP systolic 110–140; BP diastolic 52–80; PULSE 76–149; RESP 17–20; TEMP 36.6–37.5; O2SAT 93–100
--- NOTE | 2024-06-16 00:16 | PM.EVENT ---
Event Note Date of Service: 06/16/24 Event Note: elevated trop no chest pain, likely from high cpk and renal failure, no anticoagulation indicated at this time, monitor. Time Spent With Patient Time: Total time managing care of this patient today ____ minutes.
[2024-06-16] MEDS: Thiamine HCL 250 MG in 0.9 % Sodium Chloride 100 ML 204 MG IV ×3 (03:35→17:16)
[2024-06-16] MEDS: LORazepam 0.5 MG TABLET PO (03:46)
[2024-06-16] MEDS: Lactated Ringers 1,000 ML 100 ML IVCONT (05:52)
[2024-06-16 07:33] LABS: Hematocrit 37.8 % (37.0-47.0); Hemoglobin 12.6 g/dl (12.0-16.0); Mean Corpuscular HGB Conc 33.3 g/dl (31.0-35.0); Mean Corpuscular Volume 92.9 fL (80.0-98.0); Mean Platelet Volume 9.5 fL (9.4-12.3); Platelet Count 194 X10*3/uL (160-400); Red Blood Count 4.07 X10*6/uL (4.20-5.50); Red Cell Distribution Width 13.8 % (11.0-16.0); White Blood Count 16.4 X10*3/uL (4.8-10.8)
[2024-06-16 08:11] LABS: Anion Gap 26 (12-20); Blood Urea Nitrogen 22 mg/dL (9-16); Carbon Dioxide 8 mmol/L (22-29); Chloride 112 mmol/L (96-108); Creatinine Clr Calc Pharmacy 48.5; Estimated Glomerular Filt Rate 42; Glucose Random 68 mg/dL (60-115); Potassium 5.1 mmol/L (3.3-5.1); Sodium 141 mmol/L (135-145)
[2024-06-16 08:14] LABS: Venous Blood Gas Refer to POC result
[2024-06-16 08:14] LABS: VBG Base Excess -16.7 mmol/L; VBG HCO3 9 mmol/L (22-26); VBG pCO2 25 mmHg; VBG pH 7.18 (7.32-7.43); VBG pO2 54 mmHg
[2024-06-16 08:42] LABS: C Reactive Protein 4.61 mg/dL (< or = 0.50)
[2024-06-16] MEDS: Sodium Bicarbonate 8.4% 150 MEQ in Dextrose 5 % 850 ML 125 MEQ IV ×2 (09:08→17:20)
[2024-06-16] MEDS: 0.9 % Sodium Chloride Flush 3 ML SYRINGE IVFLUSH ×3 (09:08→17:20)
--- NOTE | 2024-06-16 09:15 | MHC.CM.PN ---
Addendum entered by Alysha Lowery 06/16/24 09:52: (FROM CHART REVIEW) Patient appears to live alone and to use a walker. Patient's Great Nephew lives on the second floor and helps out. HCP/Brett is on file. Patient may benefit from a PT Eval to assist with disposition. CM will follow. Original Note: CM attempted to meet with Patient at bedside, but she had a Sitter and appeared confused and unable to respond to questions. CM attempted to reach Primary Contact/HCP/Brett @ [phone] but there was no answer. CM will attempt to reach Brett again, later today.
[2024-06-16 09:17] LABS: Procalcitonin 0.07 ng/mL
[2024-06-16 09:48] LABS: Lactic Acid 0.9 mmol/L (0.5-2.0)
[2024-06-16] MEDS: Metoprolol Tartrate 12.5 MG HALFTAB 37.5 MG PO ×2 (09:48→20:16)
[2024-06-16] MEDS: dilTIAZem HCL CD 120 MG CAP.ER.DEG PO (09:50)
[2024-06-16] MEDS: Sertraline HCL 100 MG TABLET 200 MG PO (09:50)
[2024-06-16] MEDS: Chlorhexidine Gluc Oral Rinse 15 ML MOUTHWASH BUCCAL (09:54)
[2024-06-16 10:20] LABS: Beta-Hydroxybutyrate 7.49 mmol/L (0.02-0.27)
--- NOTE | 2024-06-16 12:23 | P.CNNE_ITS ---
History of Present Illness Data of Consult Service Date: 06/16/24 Primary Care Provider: Unknown Physician HPI Reason for consult: Encephalopathy 68 years old woman I was asked to see for possibility of Wernicke's encephalopathy. She was unable to provide any history and I read her history in her medical records specially detail of this admission and surrounding circumstances. Apparently she was being investigated for possibility of multiple sclerosis and had an MRI of brain and cervical spine done. She was brought to hospital after she was noted to be confused or not making sense. Review of Systems 2 Review of Systems: Could not be done with her [facility] Past Medical History Medical History Urinary incontinence Anxiety Anxiety COVID-19 Osteoarthritis of right knee Essential hypertension SVT (supraventricular tachycardia) Depression History of kidney problems Paroxysmal SVT (supraventricular tachycardia) History of confusion Urgency of micturition Memory difficulties Arthritis History of dysphagia Multiple sclerosis GERD (gastroesophageal reflux disease) Anxiety Hypertension Pain syndrome, chronic Disc degeneration, lumbar 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, bilateral Family History Family History Mother Diabetes Kidney failure Father AAA (abdominal aortic aneurysm, ruptured) Family/Other Mental health disorder Substance use disorder Surgical History Surgical History Hx of hysterectomy History of surgery on left wrist Deficient knowledge of leg surgery History of rotator cuff surgery History of left knee surgery History of myomectomy History of appendectomy Social History Social History Household Members: Unknown / Unable to assess Housing: House Are you a primary gericare aide teacher to a significant other at home: No Unable to assess alcohol history related to: Unable to respond Alcohol intake: current Alcohol intake frequency: holidays/special occasions only Comment: Tolerable right knee pain per pt. Patient Tobacco Use Status: Never used Tobacco e-Cigarette/Vaping Use: Never Used Second Hand Smoke Exposure: No Use of substances other than those prescribed or required for medical reasons: Unable to respond Currently Displaying Signs/Symptoms of Drug Intoxication Withdrawal: No Advance Directives: Yes Advance Directives on File: Yes Advance Directives Date on File: 05/16/21 Do you have a plan to hurt others: No Plan Nutrition Risks: Dental problems Patient : No : No Poor oral hygiene: Yes service: No Current occupational status: retired and disabled Cognitive needs: Yes (walker) Hearing needs: No Vision needs: Yes (glasses) Meds Allergies Allergy/AdvReac Type Severity Reaction Status Date / Time prochlorperazine [Compazine] Allergy Severe Dystonic Verified 06/15/24 12:12 Reaction cobalt [COBALT] Allergy Intermediate RASH Verified 06/15/24 12:12 hydrocodone [Vicodin] Allergy Intermediate Nausea and Verified 06/15/24 12:12 Vomiting nickel [NICKEL] Allergy Intermediate RASH Verified 06/15/24 12:12 ondansetron [Zofran] Allergy Intermediate Hives Verified 06/15/24 12:12 morphine AdvReac Intermediate Nausea and Verified 06/15/24 12:12 Vomiting Active Medications: Current Medications Acetaminophen (Acetaminophen 325 Mg Tablet) 650 mg PO Q6H PRN PRN Reason: Pain, Mild 1-3,fever,headache Baclofen (Baclofen 10 Mg Tablet) 10 mg PO DAILY [facility] Baclofen (Baclofen 20 Mg Tablet) 20 mg PO BEDTIME [facility] Last Admin: 06/15/24 21:53 Dose: Not Given Calcium Carbonate (Calcium Carbonate 750 Mg Tab.Chew) 750 mg PO Q4H PRN PRN Reason: Heartburn Chlorhexidine Gluconate (Chlorhexidine Gluc Oral Rinse 15 Ml Mouthwash) 15 ml BUCCAL TID [facility] Last Admin: 06/16/24 09:54 Dose: 15 ml Diltiazem HCl (Diltiazem Hcl Cd 120 Mg Cap.Er.Deg) 120 mg PO DAILY [facility]; Protocol Last Admin: 06/16/24 09:50 Dose: 120 mg Enoxaparin Sodium (Enoxaparin Sodium 40 Mg/0.4 Ml Syringe) 40 mg SUBCUT Q24H [facility] Last Admin: 06/15/24 18:34 Dose: 40 mg Ergocalciferol (Ergocalciferol (Vitamin D2) 1,250 Mcg Capsule) 1,250 mcg PO Suarez@0900 [facility] Thiamine HCl 250 mg/ Sodium (Chloride) 102.5 mls @ 204 mls/hr IV Q8H [facility] Stop: 06/17/24 17:59 Last Infusion: 06/16/24 10:59 Dose: Infused Thiamine HCl 250 mg/ Sodium (Chloride) 102.5 mls @ 204 mls/hr IV DAILY [facility] Stop: 06/21/24 08:59 Sodium Bicarbonate 150 meq/ (Dextrose) 1,000 mls @ 125 mls/hr IV .Q8H [facility] Last Admin: 06/16/24 09:08 Dose: 125 mls/hr Lorazepam (Lorazepam 0.5 Mg Tablet) 0.5 mg PO BID PRN PRN Reason: Anxiety Last Admin: 06/16/24 03:46 Dose: 0.5 mg Magnesium Hydroxide (Milk Of Magnesia 30 Ml Oral.Susp) 30 ml PO DAILY PRN PRN Reason: Constipation Melatonin (Melatonin 3 Mg Tablet) 6 mg PO BEDTIME PRN PRN Reason: Insomnia Metoprolol Tartrate (Metoprolol Tartrate 12.5 Mg Halftab) 37.5 mg PO BID [facility]; Protocol Last Admin: 06/16/24 09:48 Dose: 37.5 mg Nystatin (Nystatin Oral Susp 500,000 Unit/5 Ml Oral.Susp) 500,000 unit PO QID [facility]; Protocol Last Admin: 06/16/24 10:12 Dose: Not Given Oxcarbazepine (Oxcarbazepine 150 Mg Tablet) 150 mg PO BID [facility] Last Admin: 06/15/24 21:53 Dose: Not Given Oxcarbazepine (Oxcarbazepine 300 Mg Tablet) 300 mg PO BID [facility] Last Admin: 06/15/24 21:54 Dose: Not Given Oxycodone HCl (Oxycodone Hcl Immed Release 5 Mg Tablet) 5 mg PO BID [facility] Last Admin: 06/15/24 21:54 Dose: Not Given Prazosin HCl (Prazosin Hcl 1 Mg Capsule) 1 mg PO BEDTIME [facility]; Protocol Last Admin: 06/15/24 21:40 Dose: 1 mg Quetiapine Fumarate (Quetiapine Fumarate 100 Mg Tablet) 100 mg PO BEDTIME [facility] Last Admin: 06/15/24 21:55 Dose: Not Given Sertraline HCl (Sertraline Hcl 100 Mg Tablet) 200 mg PO DAILY [facility] Last Admin: 06/16/24 09:50 Dose: 200 mg Sodium Chloride (0.9 % Sodium Chloride Flush 3 Ml Syringe) 3 ml IVFLUSH QSHIFT [facility] Last Admin: 06/16/24 09:08 Dose: 3 ml Tolterodine Tartrate (Tolterodine Tartrate La 4 Mg Cap.Er.24h) 4 mg PO DAILY [facility] Zolpidem Tartrate (Zolpidem Tartrate 5 Mg Tablet) 5 mg PO BEDTIME PRN PRN Reason: Sleep Home Medications ?Medication ?Instructions ?Recorded ?Confirmed ?Last Taken ?Type ergocalciferol (vitamin D2) 1,250 1,250 mcg PO QWEEK 06/05/20 06/15/24 Unknown History mcg (50,000 unit) capsule lorazepam 0.5 mg tablet 0.5 mg PO BID PRN Anxiety 06/05/20 06/15/24 10/27/20 05:30 History zolpidem 10 mg tablet 10 mg PO BEDTIME PRN Sleep 06/05/20 06/15/24 Unknown History baclofen 10 mg tablet 10 mg PO DAILY 07/25/23 06/15/24 Unknown History ocrelizumab 30 mg/mL intravenous 600 mg IV [id number] 07/25/23 10/15/23 Unknown History solution (Ocrevus) oxcarbazepine 300 mg tablet 300 mg PO BID 07/25/23 06/15/24 Unknown History solifenacin 10 mg tablet (Vesicare) 10 mg PO DAILY 07/25/23 06/15/24 Unknown History sertraline 100 mg tablet 200 mg PO DAILY 10/09/23 06/15/24 Unknown History quetiapine 100 mg tablet 100 mg PO BEDTIME 12/31/23 06/15/24 Unknown History prazosin 1 mg capsule 1 mg PO BEDTIME 04/15/24 06/15/24 Unknown History baclofen 10 mg tablet 20 mg PO BEDTIME 06/15/24 06/15/24 Unknown History oxcarbazepine 150 mg tablet 150 mg PO BID 06/15/24 06/15/24 Unknown History Physical Exam 2 Vital Signs: Vital Signs: Last Vital Signs Temp 97.8 F 06/16/24 11:29 Pulse 97 06/16/24 11:29 Resp 20 06/16/24 11:29 BP 125/68 06/16/24 11:29 Pulse Ox 97 06/16/24 11:29 O2 Del Method Room Air 06/16/24 11:29 BMI result Body Mass Index 34.3 Neuro: Other: She is alert and awake able to tell me her 1st and last name and tell me that she lived in [place] and had 5 children but mostly she was gesturing. Right after I entered her room, she adjusted with her tongue, which seem to suggest sexual gesturing. After that she took her shirt up and started to touch her genitalia area. There was no obvious nystagmus or facial asymmetry or visual field deficit. There was no obvious focal weakness. Affect was flat to confused. Results Labs 06/16/24 06:55 06/16/24 06:55 Labs: Short CBC 06/15/24 06/16/24 Range/Units 12:30 06:55 WBC 18.2 H 16.4 H (4.8-10.8) X10*3/uL Hgb 14.0 D 12.6 (12.0-16.0) g/dl Hct 40.6 D 37.8 (37.0-47.0) % Plt Count 228 D 194 (160-400) X10*3/uL BMP 06/15/24 06/15/24 06/16/24 12:30 18:50 06:55 Sodium 143 143 141 Potassium 4.5 4.3 5.1 Chloride 109 H 108 112 H Carbon Dioxide 13 L 14 L 8 L* D BUN 30 H 26 H 22 H Creatinine 1.51 H 1.36 1.26 Calcium 9.8 D 9.6 9.0 D Cardiac Enzymes 06/15/24 06/16/24 Range/Units 12:30 06:55 Total Creatine Kinase 2022 H 1210 H (26-140) U/L Liver Function 06/15/24 Range/Units 12:30 Total Bilirubin 0.4 (0.0-1.0) mg/dL AST 84 H (5-31) U/L ALT 30 (0-31) U/L Alkaline Phosphatase 82 (39-117) U/L Albumin 4.7 (3.5-5.0) g/dL Urine 06/15/24 Range/Units 12:59 Urine Color Yellow Urine Appearance Clear Urine pH 5.5 (5.0-9.0) Ur Specific Arbon >= 1.030 H (1.005-1.025) Urine Protein 300 (3+) H (Neg-Trace) mg/dL Urine Glucose (UA) Negative (Negative) mg/dL Her MRI of brain revealed Moderately severe bilateral frontoparietal and temporal cortical atrophy with moderately severe chronic microvascular ischemic changes. Cervical spine MRI in the past has revealed moderate spinal stenosis without cord compression or any cord lesion. Head CT again confirmed atrophy. Assessment and Plan (1) Frontotemporal dementia: Status: Acute 68 years old unfortunate woman with clinical presentation suggestive of severe behavioral disorder with frontal lobe dysfunction and brain imaging revealing significant bilateral frontal parietal and temporal atrophy. There is no specific treatment other than symptomatic. Proper education of the family and proper placement is recommended. Her recent situation might have worsened because of metabolic toxic reason from UTI. Procedures Date of Service Date of Service: 06/16/24
[2024-06-16 12:24] LABS: VBG HCO3 14 mmol/L (22-26); VBG pCO2 31 mmHg; VBG pH 7.26 (7.32-7.43); VBG pO2 46 mmHg
[2024-06-16 12:24] LABS: Venous Blood Gas Refer to POC result
[2024-06-16 12:36] LABS: Osmolality, Serum 306 mosm/kg (281-305)
--- NOTE | 2024-06-16 13:07 | HO.PM.IMPN ---
Subjective Subjective Date of Service: 06/16/24 Interval History: extremely confused but unconcerned confabulating unreliable historian Review of Systems Review of Systems: Yes Unobtainable due to mental status Physical Exam Vital Signs: Vital Signs: Last Vital Signs Temp 97.8 F 06/16/24 11:29 Pulse 97 06/16/24 11:29 Resp 20 06/16/24 11:29 BP 125/68 06/16/24 11:29 Pulse Ox 97 06/16/24 11:29 O2 Del Method Room Air 06/16/24 11:29 BMI result Body Mass Index 34.3 Gen: in no acute distress HEENT: sclera anicteric, moist mucus membranes with adherent thrush Neck: supple Lungs: clear to auscultation bilaterally Heart: regular rate and rhythm, no murmurs Abd: soft, non-tender, non-distended Ext: no edema Skin: warm/well-perfused Neuro: alert, oriented to self only Psych: impaired insight Objective Data Active Medications Acetaminophen (Acetaminophen 325 Mg Tablet) 650 mg PO Q6H PRN PRN Reason: Pain, Mild 1-3,fever,headache Baclofen (Baclofen 10 Mg Tablet) 10 mg PO DAILY [facility] Baclofen (Baclofen 20 Mg Tablet) 20 mg PO BEDTIME [facility] Last Admin: 06/15/24 21:53 Dose: Not Given Documented By: KRISTEL Non-Admin Reason: Patient Refused Calcium Carbonate (Calcium Carbonate 750 Mg Tab.Chew) 750 mg PO Q4H PRN PRN Reason: Heartburn Chlorhexidine Gluconate (Chlorhexidine Gluc Oral Rinse 15 Ml Mouthwash) 15 ml BUCCAL TID [facility] Last Admin: 06/16/24 09:54 Dose: 15 ml Documented By: SIRENA Diltiazem HCl (Diltiazem Hcl Cd 120 Mg Cap.Er.Deg) 120 mg PO DAILY [facility]; Protocol Last Admin: 06/16/24 09:50 Dose: 120 mg Documented By: SIRENA Enoxaparin Sodium (Enoxaparin Sodium 40 Mg/0.4 Ml Syringe) 40 mg SUBCUT Q24H [facility] Last Admin: 06/15/24 18:34 Dose: 40 mg Documented By: REBA Ergocalciferol (Ergocalciferol (Vitamin D2) 1,250 Mcg Capsule) 1,250 mcg PO Suarez@0900 [facility] Thiamine HCl 250 mg/ Sodium (Chloride) 102.5 mls @ 204 mls/hr IV Q8H [facility] Stop: 06/17/24 17:59 Last Infusion: 06/16/24 10:59 Dose: Infused Documented By: SIRENA Thiamine HCl 250 mg/ Sodium (Chloride) 102.5 mls @ 204 mls/hr IV DAILY [facility] Stop: 06/21/24 08:59 Sodium Bicarbonate 150 meq/ (Dextrose) 1,000 mls @ 125 mls/hr IV .Q8H [facility] Last Admin: 06/16/24 09:08 Dose: 125 mls/hr Documented By: SIRENA Lorazepam (Lorazepam 0.5 Mg Tablet) 0.5 mg PO BID PRN PRN Reason: Anxiety Last Admin: 06/16/24 03:46 Dose: 0.5 mg Documented By: KRISTEL Magnesium Hydroxide (Milk Of Magnesia 30 Ml Oral.Susp) 30 ml PO DAILY PRN PRN Reason: Constipation Melatonin (Melatonin 3 Mg Tablet) 6 mg PO BEDTIME PRN PRN Reason: Insomnia Metoprolol Tartrate (Metoprolol Tartrate 12.5 Mg Halftab) 37.5 mg PO BID [facility]; Protocol Last Admin: 06/16/24 09:48 Dose: 37.5 mg Documented By: SIRENA Nystatin (Nystatin Oral Susp 500,000 Unit/5 Ml Oral.Susp) 500,000 unit PO QID [facility]; Protocol Last Admin: 06/16/24 10:12 Dose: Not Given Documented By: SIRENA Non-Admin Reason: Patient Refused Oxcarbazepine (Oxcarbazepine 150 Mg Tablet) 150 mg PO BID [facility] Last Admin: 06/15/24 21:53 Dose: Not Given Documented By: KRISTEL Non-Admin Reason: Patient Refused Oxcarbazepine (Oxcarbazepine 300 Mg Tablet) 300 mg PO BID [facility] Last Admin: 06/15/24 21:54 Dose: Not Given Documented By: KRISTEL Non-Admin Reason: Patient Refused Oxycodone HCl (Oxycodone Hcl Immed Release 5 Mg Tablet) 5 mg PO BID [facility] Last Admin: 06/15/24 21:54 Dose: Not Given Documented By: KRISTEL Non-Admin Reason: Patient Refused Prazosin HCl (Prazosin Hcl 1 Mg Capsule) 1 mg PO BEDTIME [facility]; Protocol Last Admin: 06/15/24 21:40 Dose: 1 mg Documented By: KRISTEL Quetiapine Fumarate (Quetiapine Fumarate 100 Mg Tablet) 100 mg PO BEDTIME [facility] Last Admin: 06/15/24 21:55 Dose: Not Given Documented By: KRISTEL Non-Admin Reason: Patient Refused Sertraline HCl (Sertraline Hcl 100 Mg Tablet) 200 mg PO DAILY [facility] Last Admin: 06/16/24 09:50 Dose: 200 mg Documented By: SIRENA Sodium Chloride (0.9 % Sodium Chloride Flush 3 Ml Syringe) 3 ml IVFLUSH QSHIFT [facility] Last Admin: 06/16/24 09:08 Dose: 3 ml Documented By: SIRENA Tolterodine Tartrate (Tolterodine Tartrate La 4 Mg Cap.Er.24h) 4 mg PO DAILY [facility] Zolpidem Tartrate (Zolpidem Tartrate 5 Mg Tablet) 5 mg PO BEDTIME PRN PRN Reason: Sleep Labs 06/16/24 06:55 06/16/24 06:55 Labs: Laboratory Results - last 24 hr 06/15/24 06/15/24 06/15/24 12:30 12:37 12:59 MCV MCH MCHC RDW Plt Count MPV Absolute Nucleated RBC Nucleated RBC % (auto) VBG pH VBG pCO2 VBG pO2 VBG HCO3 VBG O2 Saturation VBG Base Excess Anion Gap Estim Creat Clear Calc Estimated GFR Random Glucose Osmolality Lactic Acid Calcium Phosphorus Magnesium 2.1 Ammonia Total Creatine Kinase Troponin I High Sens 30.6 H C-Reactive Protein Beta-Hydroxybutyrate Procalcitonin TSH Urine Color Yellow Urine Appearance Clear Urine pH 5.5 Ur Specific [place] >= 1.030 H Urine Protein 300 (3+) H Urine Glucose (UA) Negative Urine Ketones 80 Urine Blood Large (3+) H Urine Nitrite Negative Ur Leukocyte Esterase Negative Urine RBC 0-2 Urine WBC 0-5 Ur Squamous Epith Cells 0-2 Urine Bacteria None Seen Hyaline Casts 3-5 Salicylates Acetaminophen Ethyl Alcohol Influenza Type A (PCR) NEGATIVE Influenza Type B (PCR) NEGATIVE RSV RNA Qual (PCR) NEGATIVE SARS-CoV-2 RNA (RT-PCR) NEGATIVE 06/15/24 06/15/24 06/15/24 14:14 18:50 18:55 MCV MCH MCHC RDW Plt Count MPV Absolute Nucleated RBC Nucleated RBC % (auto) VBG pH 7.22 L VBG pCO2 35 VBG pO2 39 VBG HCO3 15 L VBG O2 Saturation 56.0 VBG Base Excess -11.6 Anion Gap 25 H Estim Creat Clear Calc 45.0 Estimated GFR 38 Random Glucose 73 Osmolality 309 H Lactic Acid Calcium 9.6 Phosphorus Magnesium Ammonia 52 Total Creatine Kinase Troponin I High Sens 61.7 H* D C-Reactive Protein Beta-Hydroxybutyrate 5.69 H Procalcitonin TSH 1.05 Urine Color Urine Appearance Urine pH Ur Specific [place] Urine Protein Urine Glucose (UA) Urine Ketones Urine Blood Urine Nitrite Ur Leukocyte Esterase Urine RBC Urine WBC Ur Squamous Epith Cells Urine Bacteria Hyaline Casts Salicylates < 5.0 L Acetaminophen < 3 Ethyl Alcohol < 10 Influenza Type A (PCR) Influenza Type B (PCR) RSV RNA Qual (PCR) SARS-CoV-2 RNA (RT-PCR) 06/15/24 06/16/24 06/16/24 22:11 06:55 07:58 MCV 92.9 MCH 31.0 MCHC 33.3 RDW 13.8 Plt Count 194 MPV 9.5 Absolute Nucleated RBC 0.000 Nucleated RBC % (auto) 0.0 VBG pH 7.18 L* VBG pCO2 25 VBG pO2 54 VBG HCO3 9 L VBG O2 Saturation 81.0 VBG Base Excess -16.7 Anion Gap 26 H Estim Creat Clear Calc 48.5 Estimated GFR 42 Random Glucose 68 Osmolality Lactic Acid Calcium 9.0 D Phosphorus 4.0 Magnesium 2.0 Ammonia Total Creatine Kinase 1210 H Troponin I High Sens 88.7 H* C-Reactive Protein 4.61 H Beta-Hydroxybutyrate Procalcitonin 0.07 TSH Urine Color Urine Appearance Urine pH Ur Specific [place] Urine Protein Urine Glucose (UA) Urine Ketones Urine Blood Urine Nitrite Ur Leukocyte Esterase Urine RBC Urine WBC Ur Squamous Epith Cells Urine Bacteria Hyaline Casts Salicylates Acetaminophen Ethyl Alcohol Influenza Type A (PCR) Influenza Type B (PCR) RSV RNA Qual (PCR) SARS-CoV-2 RNA (RT-PCR) 06/16/24 06/16/24 06/16/24 08:56 11:57 12:19 MCV MCH MCHC RDW Plt Count MPV Absolute Nucleated RBC Nucleated RBC % (auto) VBG pH 7.26 L VBG pCO2 31 VBG pO2 46 VBG HCO3 14 L VBG O2 Saturation 74.0 VBG Base Excess -11.0 Anion Gap Estim Creat Clear Calc Estimated GFR Random Glucose Osmolality 306 H Lactic Acid 0.9 Calcium Phosphorus Magnesium Ammonia Total Creatine Kinase Troponin I High Sens C-Reactive Protein Beta-Hydroxybutyrate 7.49 H Procalcitonin TSH Urine Color Urine Appearance Urine pH Ur Specific [place] Urine Protein Urine Glucose (UA) Urine Ketones Urine Blood Urine Nitrite Ur Leukocyte Esterase Urine RBC Urine WBC Ur Squamous Epith Cells Urine Bacteria Hyaline Casts Salicylates Acetaminophen Ethyl Alcohol Influenza Type A (PCR) Influenza Type B (PCR) RSV RNA Qual (PCR) SARS-CoV-2 RNA (RT-PCR) Assessment and Plan (1) Frontotemporal dementia: Status: Acute (2) Metabolic acidosis: Status: Acute Plan d2 for 68 yo F with provisional diagnosis of MS on ocrelizumab, HTN, HLD, osteoarthritis, chronic pain syndrome, SVT, dysphagia, GERD, excess EtOH intake, and depression who lives alone and was found be a neighbor down on the floor for an unknown amount of time. Found to have prerenal KATIANA, anion gap acidosis, and mild rhabdomyolysis. severe anion gap metabolic acidosis - Suspect due to starvation ketosis. Ethanol level <10. Not diabetic and not on flozin. Osmoloal gap normal at +10. Start isotonic bicarbonate drip. Recheck BMP/VBG now and at 18:00 prerenal KATIANA - Resolving with isotonic fluid hydration metabolic encephalopathy frontotemporal dementia - Treated acidosis as above. Classic clinical presentation and neuroimaging per Neurology. Unfortunately, no specific therapies available. Will discuss with patient's family. Thiamine as below in case there is a superimposed component of Wernicke's. HCP invoked. leukocytosis - likely reactive; not septic; no clear source of infection; will not continue ABX for now [was given 1 dose of piperacillin-tazobactam in the ED] HTN urgency - resolved; continue diltiazem and metoprolol tartrate troponin elevation - due to rhabdomyolysis; not ACS EtOH dependence - monitor for withdrawal; continue CIWA. Empiric thiamine. 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 Quality Stroke Does the patient have a stroke diagnosis?: No VTE Prior VTE?: No VTE Risk Level:: Medical - moderate - high VTE Device Contraindication: Treatment Not Indicated VTE Drug Contraindication: N/A - Med Ordered
--- NOTE | 2024-06-16 13:22 | PM.PSYCN ---
History of Present Illness Date of Service: 06/16/2024 Chief Complaint: AMS, KATIANA, Rhabdo Reason for Consult: AMS Requesting physician: Wander Farooq Sources of Information: patient interviewed (attempted) and chart reviewed HPI Narrative: 68 yo female admitted for rhabdomyolysis, AMS, KATIANA. Consult requested for AMS. Met with pt who is a poor historian. She is partially verbal but silent in speaking, making lip formation without sound. She points at the TV, points to her missing front central insisor and gives not much else information. Call to primary contact Brett Dash who reports he has had no contact in 5-6 months. His son Jeffry lives in the house and is currently present however refuses to talk with this journalists and other writers as he provided information on 06/15 to ER. Brett reports he believes pt to be consuming significant amounts of alcohol. This, combined with MS, her medications, isolation and essentially not being willing to leave the home have contributed to current presentation. Brett sons assist pt-she has been unable to keep up with home maintenance and is behind on taxes, so she has some significant stressors. Brett reports she is not very receptive to assistance. 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, bilateral Surgical History Hx of hysterectomy History of surgery on left wrist Deficient knowledge of leg surgery History of rotator cuff surgery History of left knee surgery History of myomectomy History of appendectomy Substance History: Primary contact, Brett reports pt has a problem with alcohol use Diagnostics Vital Signs (24Hr): Vital Signs - 24 hr 06/15/24 13:26 06/15/24 15:11 06/15/24 15:47 Temperature 97.1 F Pulse Rate 87 99 90 Respiratory Rate 26 H 22 H Blood Pressure 191/98 H 209/110 H 187/90 H Pulse Oximetry 98 Oxygen Delivery Method Room Air 06/15/24 18:15 06/15/24 20:00 06/15/24 21:40 Temperature 99.1 F 97.6 F Pulse Rate 96 101 H Respiratory Rate 24 H 20 Blood Pressure 194/103 H 131/96 H 194/90 H Pulse Oximetry 99 96 Oxygen Delivery Method Room Air Room Air 06/16/24 00:00 06/16/24 00:35 06/16/24 04:00 Temperature 98.6 F 98.5 F Pulse Rate 149 H 95 101 H Respiratory Rate 20 20 Blood Pressure 137/64 139/78 Pulse Oximetry 98 100 Oxygen Delivery Method Room Air Room Air 06/16/24 07:02 06/16/24 09:50 06/16/24 11:29 Temperature 99.5 F 97.8 F Pulse Rate 99 108 H 97 Respiratory Rate 17 20 Blood Pressure 140/64 H 138/80 125/68 Pulse Oximetry 98 97 Oxygen Delivery Method Room Air Room Air BMI result Body Mass Index 34.3 Labs 06/16/24 06:55 06/16/24 06:55 Labs: Laboratory Results - last 48 hr 06/15/24 06/15/24 06/15/24 12:30 12:37 12:59 WBC 18.2 H RBC 4.58 D Hgb 14.0 D Hct 40.6 D MCV 88.6 MCH 30.6 MCHC 34.5 RDW 13.2 Plt Count 228 D MPV 9.2 L Immature Gran % (Auto) 1.0 H Neut % (Auto) 83.9 H Lymph % (Auto) 9.1 L [place] % (Auto) 5.7 Eos % (Auto) 0.0 Baso % (Auto) 0.3 Lymph # (Auto) 1.7 [place] # (Auto) 1.0 Eos # (Auto) 0.0 Baso # (Auto) 0.1 Abs Immat Gran (auto) 0.18 H Absolute Neuts (auto) 15.3 H Absolute Nucleated RBC 0.000 Nucleated RBC % (auto) 0.0 PT 12.4 INR 1.1 VBG pH VBG pCO2 VBG pO2 VBG HCO3 VBG O2 Saturation VBG Base Excess Sodium 143 Potassium 4.5 Chloride 109 H Carbon Dioxide 13 L Anion Gap 26 H BUN 30 H Creatinine 1.51 H Estim Creat Clear Calc 40.5 Estimated GFR 34 Random Glucose 83 Osmolality Lactic Acid 1.8 Calcium 9.8 D Phosphorus Magnesium 2.1 Total Bilirubin 0.4 AST 84 H ALT 30 Alkaline Phosphatase 82 Ammonia Total Creatine Kinase 2022 H Troponin I High Sens 30.6 H C-Reactive Protein Total Protein 8.6 H Albumin 4.7 Beta-Hydroxybutyrate Procalcitonin TSH Urine Color Yellow Urine Appearance Clear Urine pH 5.5 Ur Specific [place] >= 1.030 H Urine Protein 300 (3+) H Urine Glucose (UA) Negative Urine Ketones 80 Urine Blood Large (3+) H Urine Nitrite Negative Ur Leukocyte Esterase Negative Urine RBC 0-2 Urine WBC 0-5 Ur Squamous Epith Cells 0-2 Urine Bacteria None Seen Hyaline Casts 3-5 Salicylates Acetaminophen Ethyl Alcohol Influenza Type A (PCR) NEGATIVE Influenza Type B (PCR) NEGATIVE RSV RNA Qual (PCR) NEGATIVE SARS-CoV-2 RNA (RT-PCR) NEGATIVE 06/15/24 06/15/24 06/15/24 14:14 18:50 18:55 WBC RBC Hgb Hct MCV MCH MCHC RDW Plt Count MPV Immature Gran % (Auto) Neut % (Auto) Lymph % (Auto) [place] % (Auto) Eos % (Auto) Baso % (Auto) Lymph # (Auto) [place] # (Auto) Eos # (Auto) Baso # (Auto) Abs Immat Gran (auto) Absolute Neuts (auto) Absolute Nucleated RBC Nucleated RBC % (auto) PT INR VBG pH 7.22 L VBG pCO2 35 VBG pO2 39 VBG HCO3 15 L VBG O2 Saturation 56.0 VBG Base Excess -11.6 Sodium 143 Potassium 4.3 Chloride 108 Carbon Dioxide 14 L Anion Gap 25 H BUN 26 H Creatinine 1.36 Estim Creat Clear Calc 45.0 Estimated GFR 38 Random Glucose 73 Osmolality 309 H Lactic Acid Calcium 9.6 Phosphorus Magnesium Total Bilirubin AST ALT Alkaline Phosphatase Ammonia 52 Total Creatine Kinase Troponin I High Sens 61.7 H* D C-Reactive Protein Total Protein Albumin Beta-Hydroxybutyrate 5.69 H Procalcitonin TSH 1.05 Urine Color Urine Appearance Urine pH Ur Specific [place] Urine Protein Urine Glucose (UA) Urine Ketones Urine Blood Urine Nitrite Ur Leukocyte Esterase Urine RBC Urine WBC Ur Squamous Epith Cells Urine Bacteria Hyaline Casts Salicylates < 5.0 L Acetaminophen < 3 Ethyl Alcohol < 10 Influenza Type A (PCR) Influenza Type B (PCR) RSV RNA Qual (PCR) SARS-CoV-2 RNA (RT-PCR) 06/15/24 06/16/24 06/16/24 22:11 06:55 07:58 WBC 16.4 H RBC 4.07 L Hgb 12.6 Hct 37.8 MCV 92.9 MCH 31.0 MCHC 33.3 RDW 13.8 Plt Count 194 MPV 9.5 Immature Gran % (Auto) Neut % (Auto) Lymph % (Auto) [place] % (Auto) Eos % (Auto) Baso % (Auto) Lymph # (Auto) [place] # (Auto) Eos # (Auto) Baso # (Auto) Abs Immat Gran (auto) Absolute Neuts (auto) Absolute Nucleated RBC 0.000 Nucleated RBC % (auto) 0.0 PT INR VBG pH 7.18 L* VBG pCO2 25 VBG pO2 54 VBG HCO3 9 L VBG O2 Saturation 81.0 VBG Base Excess -16.7 Sodium 141 Potassium 5.1 Chloride 112 H Carbon Dioxide 8 L* D Anion Gap 26 H BUN 22 H Creatinine 1.26 Estim Creat Clear Calc 48.5 Estimated GFR 42 Random Glucose 68 Osmolality Lactic Acid Calcium 9.0 D Phosphorus 4.0 Magnesium 2.0 Total Bilirubin AST ALT Alkaline Phosphatase Ammonia Total Creatine Kinase 1210 H Troponin I High Sens 88.7 H* C-Reactive Protein 4.61 H Total Protein Albumin Beta-Hydroxybutyrate Procalcitonin 0.07 TSH Urine Color Urine Appearance Urine pH Ur Specific [place] Urine Protein Urine Glucose (UA) Urine Ketones Urine Blood Urine Nitrite Ur Leukocyte Esterase Urine RBC Urine WBC Ur Squamous Epith Cells Urine Bacteria Hyaline Casts Salicylates Acetaminophen Ethyl Alcohol Influenza Type A (PCR) Influenza Type B (PCR) RSV RNA Qual (PCR) SARS-CoV-2 RNA (RT-PCR) 06/16/24 06/16/24 06/16/24 08:56 11:57 12:19 WBC RBC Hgb Hct MCV MCH MCHC RDW Plt Count MPV Immature Gran % (Auto) Neut % (Auto) Lymph % (Auto) [place] % (Auto) Eos % (Auto) Baso % (Auto) Lymph # (Auto) [place] # (Auto) Eos # (Auto) Baso # (Auto) Abs Immat Gran (auto) Absolute Neuts (auto) Absolute Nucleated RBC Nucleated RBC % (auto) PT INR VBG pH 7.26 L VBG pCO2 31 VBG pO2 46 VBG HCO3 14 L VBG O2 Saturation 74.0 VBG Base Excess -11.0 Sodium Potassium Chloride Carbon Dioxide Anion Gap BUN Creatinine Estim Creat Clear Calc Estimated GFR Random Glucose Osmolality 306 H Lactic Acid 0.9 Calcium Phosphorus Magnesium Total Bilirubin AST ALT Alkaline Phosphatase Ammonia Total Creatine Kinase Troponin I High Sens C-Reactive Protein Total Protein Albumin Beta-Hydroxybutyrate 7.49 H Procalcitonin TSH Urine Color Urine Appearance Urine pH Ur Specific [place] Urine Protein Urine Glucose (UA) Urine Ketones Urine Blood Urine Nitrite Ur Leukocyte Esterase Urine RBC Urine WBC Ur Squamous Epith Cells Urine Bacteria Hyaline Casts Salicylates Acetaminophen Ethyl Alcohol Influenza Type A (PCR) Influenza Type B (PCR) RSV RNA Qual (PCR) SARS-CoV-2 RNA (RT-PCR) Imaging Radiology Impressions: ITS Impressions Cervical Spine CT 06/15/24 12:10 IMPRESSION: Multilevel advanced degenerative change. No fracture or acute findings. Fleischner guidelines were followed. Electronically signed by: Juve Tidwell MD 06/15/2024 01:41 PM EST RP Head CT 06/15/24 12:38 IMPRESSION: No acute intracranial pathology. Electronically signed by: Juve Tidwell MD 06/15/2024 01:35 PM EST RP Abdomen/Pelvis CT 06/15/24 13:57 IMPRESSION: 1. No acute abnormality within the chest, abdomen, or pelvis. 2. There is a 0.5 cm fissural right lower lobe nodule. According to the UPDATED 2017 Fleischner Society recommendations, the advised follow-up imaging for solid nodules < 6 mm is: LOW RISK PATIENT: No routine follow-up. HIGH RISK PATIENT: Optional CT at 12 months. 3. Bilateral heterogeneous thyroid nodules. The right thyroid nodule measures 2 x 1.9 cm, increased from 1.8 cm in 2020. The left thyroid nodule measures 1.3 x 0.8 cm, increased from subcentimeter in 2020. Recommend nonemergent dedicated thyroid ultrasound for further assessment. Electronically signed by: Emily Vasquez DO 06/15/2024 04:51 PM EST RP Chest CT 06/15/24 14:18 IMPRESSION: 1. No acute abnormality within the chest, abdomen, or pelvis. 2. There is a 0.5 cm fissural right lower lobe nodule. According to the UPDATED 2017 Fleischner Society recommendations, the advised follow-up imaging for solid nodules < 6 mm is: LOW RISK PATIENT: No routine follow-up. HIGH RISK PATIENT: Optional CT at 12 months. 3. Bilateral heterogeneous thyroid nodules. The right thyroid nodule measures 2 x 1.9 cm, increased from 1.8 cm in 2020. The left thyroid nodule measures 1.3 x 0.8 cm, increased from subcentimeter in 2020. Recommend nonemergent dedicated thyroid ultrasound for further assessment. Electronically signed by: Emily Vasquez DO 06/15/2024 04:51 PM [facility] Mental Status Exam Mental Status Exam Patient Appearance: Fatigued Patient Orientation: Person and Place Level of Consciousness: Alert Patient Behavior: Good Eye Contact Mood Description: Withdrawn, Anxious and Apprehensive Affect Description: Anxious Ability to Follow Directions: Fair Speech Pattern: Spontaneous Speech, Whisper and Poor Articulation Thought Process: Distracted Thought Content: positive for Perseveration Judgement: Poor Medications Medications Current Medications Acetaminophen (Acetaminophen 325 Mg Tablet) 650 mg PO Q6H PRN PRN Reason: Pain, Mild 1-3,fever,headache Baclofen (Baclofen 10 Mg Tablet) 10 mg PO DAILY [facility] Baclofen (Baclofen 20 Mg Tablet) 20 mg PO BEDTIME [facility] Last Admin: 06/15/24 21:53 Dose: Not Given Calcium Carbonate (Calcium Carbonate 750 Mg Tab.Chew) 750 mg PO Q4H PRN PRN Reason: Heartburn Chlorhexidine Gluconate (Chlorhexidine Gluc Oral Rinse 15 Ml Mouthwash) 15 ml BUCCAL TID [facility] Last Admin: 06/16/24 09:54 Dose: 15 ml Diltiazem HCl (Diltiazem Hcl Cd 120 Mg Cap.Er.Deg) 120 mg PO DAILY [facility]; Protocol Last Admin: 06/16/24 09:50 Dose: 120 mg Enoxaparin Sodium (Enoxaparin Sodium 40 Mg/0.4 Ml Syringe) 40 mg SUBCUT Q24H [facility] Last Admin: 06/15/24 18:34 Dose: 40 mg Ergocalciferol (Ergocalciferol (Vitamin D2) 1,250 Mcg Capsule) 1,250 mcg PO Suarez@0900 [facility] Folic Acid (Folic Acid 1 Mg Tablet) 1 mg PO DAILY [facility] Thiamine HCl 250 mg/ Sodium (Chloride) 102.5 mls @ 204 mls/hr IV Q8H [facility] Stop: 06/17/24 17:59 Last Infusion: 06/16/24 10:59 Dose: Infused Thiamine HCl 250 mg/ Sodium (Chloride) 102.5 mls @ 204 mls/hr IV DAILY [facility] Stop: 06/21/24 08:59 Sodium Bicarbonate 150 meq/ (Dextrose) 1,000 mls @ 125 mls/hr IV .Q8H [facility] Last Admin: 06/16/24 09:08 Dose: 125 mls/hr Lorazepam (Lorazepam 0.5 Mg Tablet) 0.5 mg PO BID PRN PRN Reason: Anxiety Last Admin: 06/16/24 03:46 Dose: 0.5 mg Lorazepam (Lorazepam 1 Mg Tablet) 1 mg PO Q2H PRN PRN Reason: ciwa 6-10 Lorazepam (Lorazepam 1 Mg Tablet) 2 mg PO Q2H PRN PRN Reason: ciwa 11+ Magnesium Hydroxide (Milk Of Magnesia 30 Ml Oral.Susp) 30 ml PO DAILY PRN PRN Reason: Constipation Melatonin (Melatonin 3 Mg Tablet) 6 mg PO BEDTIME PRN PRN Reason: Insomnia Metoprolol Tartrate (Metoprolol Tartrate 12.5 Mg Halftab) 37.5 mg PO BID [facility]; Protocol Last Admin: 06/16/24 09:48 Dose: 37.5 mg Multivitamins/Vitamin C (Multivitamin Tablet) 1 tab PO DAILY [facility] Nystatin (Nystatin Oral Susp 500,000 Unit/5 Ml Oral.Susp) 500,000 unit PO QID [facility]; Protocol Last Admin: 06/16/24 10:12 Dose: Not Given Oxcarbazepine (Oxcarbazepine 150 Mg Tablet) 150 mg PO BID [facility] Last Admin: 06/15/24 21:53 Dose: Not Given Oxcarbazepine (Oxcarbazepine 300 Mg Tablet) 300 mg PO BID [facility] Last Admin: 06/15/24 21:54 Dose: Not Given Oxycodone HCl (Oxycodone Hcl Immed Release 5 Mg Tablet) 5 mg PO BID [facility] Last Admin: 06/15/24 21:54 Dose: Not Given Prazosin HCl (Prazosin Hcl 1 Mg Capsule) 1 mg PO BEDTIME [facility]; Protocol Last Admin: 06/15/24 21:40 Dose: 1 mg Quetiapine Fumarate (Quetiapine Fumarate 100 Mg Tablet) 100 mg PO BEDTIME [facility] Last Admin: 06/15/24 21:55 Dose: Not Given Sertraline HCl (Sertraline Hcl 100 Mg Tablet) 200 mg PO DAILY [facility] Last Admin: 06/16/24 09:50 Dose: 200 mg Sodium Chloride (0.9 % Sodium Chloride Flush 3 Ml Syringe) 3 ml IVFLUSH QSHIFT [facility] Last Admin: 06/16/24 09:08 Dose: 3 ml Tolterodine Tartrate (Tolterodine Tartrate La 4 Mg Cap.Er.24h) 4 mg PO DAILY [facility] Zolpidem Tartrate (Zolpidem Tartrate 5 Mg Tablet) 5 mg PO BEDTIME PRN PRN Reason: Sleep Allergies Allergies Allergy/AdvReac Type Severity Reaction Status Date / Time prochlorperazine [Compazine] Allergy Severe Dystonic Verified 06/15/24 12:12 Reaction cobalt [COBALT] Allergy Intermediate RASH Verified 06/15/24 12:12 hydrocodone [Vicodin] Allergy Intermediate Nausea and Verified 06/15/24 12:12 Vomiting nickel [NICKEL] Allergy Intermediate RASH Verified 06/15/24 12:12 ondansetron [Zofran] Allergy Intermediate Hives Verified 06/15/24 12:12 morphine AdvReac Intermediate Nausea and Verified 06/15/24 12:12 Vomiting Assessment & Plan Assessment & Plan (1) Altered mental status: Status: Acute Code(s): R41.82 - Altered mental status, unspecified Plan Possible alcohol use disorder per family contributing to current presentation. This, in combination with recent UTI, neurology input, diagnostic results of CAT/MRI suggest possible dementia Plan: MVI/Thiamine/Folic Acid CIWA Scale Lorazepam detox Pt may require rehab time to assess if current sx are temporary vs skilled nursing Total time managing care of this patient today ____ minutes.
--- NOTE | 2024-06-16 13:47 | HO.HCP_ITS ---
Health Care Proxy Invocation Health Care Proxy Declaration: I, Wander Farooq , on the date cited below, have determined that, ____Sarah Dash , lacks the capacity to make or communicate, informed health care decision. This determination is made in accordance with accepted standards of medical judgment and pursuant to [place] 201[place], the [facility] Care Proxy Law. The cause, nature, extent and probable duration of the patient's inapacity are described below: Cause: Frontotemporal dementia Nature: Progressive Extent: Severe Probable Duration of Patient's Incapacity: Lifetime
[2024-06-16 13:53] LABS: Blood Urea Nitrogen 20 mg/dL (9-16); Calcium 8.8 mg/dL (8.4-10.2); Creatinine Clr Calc Pharmacy 46.3; Estimated Glomerular Filt Rate 40; Glucose Random 79 mg/dL (60-115)
--- NOTE | 2024-06-16 13:54 | MHC.CM.PN ---
Per , who spoke with Nephew/HCP/Brett, Brett was not aware that he had been chosen to be Patient's HCP Agent. Per , LTC appears likely r/t Dementia, recent fall, and [facility] having concerns about Patient's living situation.Per MD, Brett has no idea about Patient's assets (including what would need to be done with her home). CM will make a referral to [facility] and will continue to follow.
[2024-06-16 14:26] LABS: Anion Gap 22 (12-20); Carbon Dioxide 12 mmol/L (22-29); Chloride 111 mmol/L (96-108); Potassium 4.3 mmol/L (3.3-5.1); Sodium 141 mmol/L (135-145)
[2024-06-16 15:39] LABS: Amphetamine Screen Urine Not Detected (Not Detect); Barbiturates, Urine Not Detected (Not Detect); Benzodiazepines Screen Urine Not Detected (Not Detect); Buprenorphine Scr Not Detected (Not Detect); Cannabinoid Screen Urine Not Detected (Not Detect); Cocaine Screen Urine Not Detected (Not Detect); Fentanyl, urine Not Detected (Not Detect); Methadone Screen, Urine Not Detected (Not Detect); Opiate Screen Urine Not Detected (Not Detect); Oxycodone Screen Urine Not Detected (Not Detect); Phencyclidine Screen Urine Not Detected (Not Detect)
[2024-06-16] MEDS: Enoxaparin Sodium 40 MG/0.4 ML SYRINGE SUBCUT (17:20)
[2024-06-16 18:24] LABS: VBG Base Excess -4.2 mmol/L; VBG HCO3 19 mmol/L (22-26); VBG pCO2 30 mmHg; VBG pO2 91 mmHg
[2024-06-16 18:40] LABS: Anion Gap 16 (12-20); Blood Urea Nitrogen 20 mg/dL (9-16); Calcium 8.6 mg/dL (8.4-10.2); Carbon Dioxide 18 mmol/L (22-29); Chloride 110 mmol/L (96-108); Creatinine Clr Calc Pharmacy 51.9; Estimated Glomerular Filt Rate 45; Glucose Random 100 mg/dL (60-115); Potassium 3.5 mmol/L (3.3-5.1); Sodium 140 mmol/L (135-145)
[2024-06-16 19:10] LABS: Venous Blood Gas Refer to POC result
[2024-06-16] MEDS: Prazosin HCL 1 MG CAPSULE PO (20:15)
[2024-06-16] MEDS: QUEtiapine Fumarate 100 MG TABLET PO (20:15)
[2024-06-16] MEDS: oxyCODONE HCl Immed Release 5 MG TABLET PO (22:40)
[2024-06-17] VITALS (7 sets, daily range): BP systolic 104–137; BP diastolic 53–77; PULSE 59–86; RESP 18–20; TEMP 36.6–37; O2SAT 92–97
[2024-06-17] MEDS: Sodium Bicarbonate 8.4% 150 MEQ in Dextrose 5 % 850 ML 125 MEQ IV ×2 (01:16→11:12)
[2024-06-17] MEDS: Thiamine HCL 250 MG in 0.9 % Sodium Chloride 100 ML 204 MG IV ×2 (01:16→09:38)
[2024-06-17] MEDS: Acetaminophen 325 MG TABLET 650 MG PO (03:30)
[2024-06-17] MEDS: LORazepam 0.5 MG TABLET PO ×3 (03:30→16:41)
[2024-06-17 06:47] LABS: Hematocrit 31.4 % (37.0-47.0); Hemoglobin 10.7 g/dl (12.0-16.0); Mean Corpuscular HGB Conc 34.1 g/dl (31.0-35.0); Mean Corpuscular Hemoglobin 30.5 pg (27.0-33.0); Mean Corpuscular Volume 89.5 fL (80.0-98.0); Mean Platelet Volume 9.2 fL (9.4-12.3); Platelet Count 153 X10*3/uL (160-400); Red Blood Count 3.51 X10*6/uL (4.20-5.50); Red Cell Distribution Width 13.4 % (11.0-16.0); White Blood Count 7.5 X10*3/uL (4.8-10.8)
[2024-06-17 07:03] LABS: Anion Gap 15 (12-20); Blood Urea Nitrogen 23 mg/dL (9-16); Calcium 8.3 mg/dL (8.4-10.2); Carbon Dioxide 27 mmol/L (22-29); Chloride 103 mmol/L (96-108); Estimated Glomerular Filt Rate 42; Glucose Random 105 mg/dL (60-115); Magnesium 1.7 mg/dL (1.6-2.6); Phosphorus 3.2 mg/dL (2.7-4.5); Potassium 3.2 mmol/L (3.3-5.1); Sodium 142 mmol/L (135-145)
[2024-06-17] MEDS: Sertraline HCL 100 MG TABLET 200 MG PO (08:01)
[2024-06-17] MEDS: Multivitamin TABLET 1 TAB PO (08:01)
[2024-06-17] MEDS: Metoprolol Tartrate 12.5 MG HALFTAB 37.5 MG PO (08:01)
[2024-06-17] MEDS: oxyCODONE HCl Immed Release 5 MG TABLET PO ×2 (08:01→21:23)
[2024-06-17] MEDS: Nystatin Oral Susp 500,000 UNIT/5 ML ORAL.SUSP 500000 UNIT PO ×2 (08:02→21:24)
[2024-06-17] MEDS: Folic Acid 1 MG TABLET PO (08:02)
[2024-06-17] MEDS: Chlorhexidine Gluc Oral Rinse 15 ML MOUTHWASH BUCCAL (08:02)
[2024-06-17] MEDS: dilTIAZem HCL CD 120 MG CAP.ER.DEG PO (08:02)
[2024-06-17 08:35] LABS: Venous Blood Gas Refer to POC result
[2024-06-17 08:37] LABS: VBG HCO3 34 mmol/L (22-26); VBG pCO2 47 mmHg; VBG pH 7.46 (7.32-7.43); VBG pO2 44 mmHg
[2024-06-17 11:13] LABS: Acetone 25 mg/dL (NONE DETECTED); Analysis performed on: WHOLE BLOOD; Ethyl Alcohol g/dL (%) NONE DETECTED g/dL(%) (NONE DETECTED); Ethyl Alcohol mg/dL NONE DETECTED (NONE DETECTED); Isopropanol NONE DETECTED (NONE DETECTED)
--- NOTE | 2024-06-17 11:40 | MHC.SL.SWA ---
Speech Pathologist Impression: Risk of Aspiration Due to: Neurological Condition Dysphasia Diet Status: Liquid Consistency and Strategies for Safe Swallow: Liquid Intake Recommendation: Thin Liquid Intake Strategies: Unrestricted Solid Food Consistency: Dietary Recommendations: Regular Additional Modifications to Solid Foods: Oral Medication Intake: Whole with Liquid Please contact the pharmacy regarding appropriate crushable or liquid drug formulations that are available whenever modified delivery is recommended. Compensatory Strategies and Precautions to be Taken for Safe Swallow: Sitting Upright (90 deg) Liquids from Cup Liquids from Straw Small Bites and Sips Supervision While Eating and Drinking for Safe Swallow: None Needed Foods to Avoid: Swallowing Recommended Treatments: Recommendation for Speech: NA:Typical Evaluation Comment: Patient presents with a few missing teeth, but otherwise all oral motor function WFL. Patient's swallow is also WFL. Recommend UPGRADE diet to Regular with thin liquids, pills whole with liquid. As all aspects of swallow WFL, no further speech language service needed, CLERK OF SCALES will D/C order. MD/RD/RN notified by secure text, CLERK OF SCALES updated white board in room with recommendations. Frequency/Duration: Date Range for Service Req: Timeline to reassess: Oil Driller Clinican/Clinical Fellow: No Supervisory Statement: I have reviewed and agree with the student/clinical fellow's documentation: N/A Speech Language Pathologist: Idalia Calderon M.A., CCC-CLERK OF SCALES
--- NOTE | 2024-06-17 15:49 | HO.PM.IMPN ---
Subjective Subjective Date of Service: 06/17/24 Interval History: Awake alert more clear today than previous notes document. No acute distress Review of Systems Denies chest pain Denies shortness of breath Denies nausea vomiting diarrhea Denies fever chills Physical Exam Vital Signs: Vital Signs: Last Vital Signs Temp 98.6 F 06/17/24 15:29 Pulse 76 06/17/24 15:29 Resp 18 06/17/24 15:29 BP 117/59 L 06/17/24 15:29 Pulse Ox 97 06/17/24 11:36 O2 Del Method Room Air 06/17/24 11:09 BMI result Body Mass Index 34.3 Const: Other: Awake alert oriented x3 at this time Resp: Other: Clear to auscultation bilaterally no rales rhonchi or wheezes Cardio: Other: No S4; positive S1-S2; no S3 murmurs rubs or gallops GI: Other: Soft nontender nondistended normoactive bowel sounds Neuro: Other: Cranial nerves 2-12 grossly intact as tested. Moving all extremities with purpose. Gait not observed Extrem: Other: No edema bilaterally Objective Data Active Medications Acetaminophen (Acetaminophen 325 Mg Tablet) 650 mg PO Q6H PRN PRN Reason: Pain, Mild 1-3,fever,headache Last Admin: 06/17/24 03:30 Dose: 650 mg Documented By: ARASH Baclofen (Baclofen 10 Mg Tablet) 10 mg PO DAILY [facility] Baclofen (Baclofen 20 Mg Tablet) 20 mg PO BEDTIME [facility] Last Admin: 06/15/24 21:53 Dose: Not Given Documented By: KRISTEL Non-Admin Reason: Patient Refused Calcium Carbonate (Calcium Carbonate 750 Mg Tab.Chew) 750 mg PO Q4H PRN PRN Reason: Heartburn Chlorhexidine Gluconate (Chlorhexidine Gluc Oral Rinse 15 Ml Mouthwash) 15 ml BUCCAL TID [facility] Last Admin: 06/17/24 14:52 Dose: Not Given Documented By: YAYO Non-Admin Reason: Patient Refused Diltiazem HCl (Diltiazem Hcl Cd 120 Mg Cap.Er.Deg) 120 mg PO DAILY [facility]; Protocol Last Admin: 06/17/24 08:02 Dose: 120 mg Documented By: YAYO Enoxaparin Sodium (Enoxaparin Sodium 40 Mg/0.4 Ml Syringe) 40 mg SUBCUT Q24H [facility] Last Admin: 06/16/24 17:20 Dose: 40 mg Documented By: SIRENA Ergocalciferol (Ergocalciferol (Vitamin D2) 1,250 Mcg Capsule) 1,250 mcg PO Suarez@0900 [facility] Folic Acid (Folic Acid 1 Mg Tablet) 1 mg PO DAILY [facility] Last Admin: 06/17/24 08:02 Dose: 1 mg Documented By: YAYO Thiamine HCl 250 mg/ Sodium (Chloride) 102.5 mls @ 204 mls/hr IV Q8H [facility] Stop: 06/17/24 17:59 Last Infusion: 06/17/24 10:23 Dose: Infused Documented By: YAYO Thiamine HCl 250 mg/ Sodium (Chloride) 102.5 mls @ 204 mls/hr IV DAILY [facility] Stop: 06/21/24 08:59 Sodium Bicarbonate 150 meq/ (Dextrose) 1,000 mls @ 125 mls/hr IV .Q8H [facility] Last Admin: 06/17/24 11:12 Dose: 125 mls/hr Documented By: YAOY Lorazepam (Lorazepam 0.5 Mg Tablet) 0.5 mg PO BID PRN PRN Reason: Anxiety Last Admin: 06/17/24 08:01 Dose: 0.5 mg Documented By: YAYO Lorazepam (Lorazepam 1 Mg Tablet) 1 mg PO Q2H PRN PRN Reason: ciwa 6-10 Lorazepam (Lorazepam 1 Mg Tablet) 2 mg PO Q2H PRN PRN Reason: ciwa 11+ Magnesium Hydroxide (Milk Of Magnesia 30 Ml Oral.Susp) 30 ml PO DAILY PRN PRN Reason: Constipation Melatonin (Melatonin 3 Mg Tablet) 6 mg PO BEDTIME PRN PRN Reason: Insomnia Metoprolol Tartrate (Metoprolol Tartrate 12.5 Mg Halftab) 37.5 mg PO BID [facility]; Protocol Last Admin: 06/17/24 08:01 Dose: 37.5 mg Documented By: YAYO Multivitamins/Vitamin C (Multivitamin Tablet) 1 tab PO DAILY [facility] Last Admin: 06/17/24 08:01 Dose: 1 tab Documented By: YAYO Nystatin (Nystatin Oral Susp 500,000 Unit/5 Ml Oral.Susp) 500,000 unit PO QID [facility]; Protocol Last Admin: 06/17/24 13:28 Dose: Not Given Documented By: YAYO Non-Admin Reason: Patient Refused Oxcarbazepine (Oxcarbazepine 150 Mg Tablet) 150 mg PO BID [facility] Last Admin: 06/15/24 21:53 Dose: Not Given Documented By: KRISTEL Non-Admin Reason: Patient Refused Oxcarbazepine (Oxcarbazepine 300 Mg Tablet) 300 mg PO BID [facility] Last Admin: 06/15/24 21:54 Dose: Not Given Documented By: KRISTEL Non-Admin Reason: Patient Refused Oxycodone HCl (Oxycodone Hcl Immed Release 5 Mg Tablet) 5 mg PO BID [facility] Last Admin: 06/17/24 08:01 Dose: 5 mg Documented By: YAYO Prazosin HCl (Prazosin Hcl 1 Mg Capsule) 1 mg PO BEDTIME [facility]; Protocol Last Admin: 06/16/24 20:15 Dose: 1 mg Documented By: ARASH Quetiapine Fumarate (Quetiapine Fumarate 100 Mg Tablet) 100 mg PO BEDTIME [facility] Last Admin: 06/16/24 20:15 Dose: 100 mg Documented By: ARASH Sertraline HCl (Sertraline Hcl 100 Mg Tablet) 200 mg PO DAILY [facility] Last Admin: 06/17/24 08:01 Dose: 200 mg Documented By: YAYO Sodium Chloride (0.9 % Sodium Chloride Flush 3 Ml Syringe) 3 ml IVFLUSH QSHIFT [facility] Last Admin: 06/17/24 09:59 Dose: Not Given Documented By: YAYO Non-Admin Reason: IV Running Tolterodine Tartrate (Tolterodine Tartrate La 4 Mg Cap.Er.24h) 4 mg PO DAILY [facility] Zolpidem Tartrate (Zolpidem Tartrate 5 Mg Tablet) 5 mg PO BEDTIME PRN PRN Reason: Sleep Labs 06/17/24 06:26 06/17/24 06:26 Labs: Laboratory Results - last 24 hr 06/16/24 06/16/24 06/16/24 08:56 18:13 18:18 MCV MCH MCHC RDW Plt Count MPV Absolute Nucleated RBC Nucleated RBC % (auto) Hold Purple Top VBG pH 7.40 VBG pCO2 30 VBG pO2 91 VBG HCO3 19 L VBG O2 Saturation 99.0 VBG Base Excess -4.2 Anion Gap 16 Estim Creat Clear Calc 51.9 Estimated GFR 45 Random Glucose 100 Calcium 8.6 Phosphorus Magnesium Total Creatine Kinase Volat Analys Perform On WHOLE BLOOD Ethyl Alcohol mg/dL NONE DETECTED Ethyl Alcohol g/dL NONE DETECTED Isopropyl Alc, Quant NONE DETECTED Acetone Level 25 H 06/16/24 06/17/24 06/17/24 18:26 06:26 08:32 MCV 89.5 MCH 30.5 MCHC 34.1 RDW 13.4 Plt Count 153 L MPV 9.2 L Absolute Nucleated RBC 0.000 Nucleated RBC % (auto) 0.0 Hold Purple Top SEE NOTE VBG pH 7.46 H VBG pCO2 47 VBG pO2 44 VBG HCO3 34 H VBG O2 Saturation 72.0 VBG Base Excess 9.0 Anion Gap 15 Estim Creat Clear Calc 49.0 Estimated GFR 42 Random Glucose 105 Calcium 8.3 L Phosphorus 3.2 Magnesium 1.7 Total Creatine Kinase 498 H Volat Analys Perform On Ethyl Alcohol mg/dL Ethyl Alcohol g/dL Isopropyl Alc, Quant Acetone Level Microbiology Microbiology Results: Microbiology 06/15/24 12:50 Blood Culture - Preliminary Blood - Venous No growth after 48 hours. 06/15/24 12:30 Blood Culture - Preliminary Blood - Venous No growth after 48 hours. Assessment and Plan (1) Metabolic acidosis: Status: Acute (2) KATIANA (acute kidney injury): Status: Acute (3) Altered mental status: Status: Acute Plan d2 for 68 yo F with provisional diagnosis of MS on ocrelizumab, HTN, HLD, osteoarthritis, chronic pain syndrome, SVT, dysphagia, GERD, excess EtOH intake, and depression who lives alone and was found be a neighbor down on the floor for an unknown amount of time. Found to have prerenal KATIANA, anion gap acidosis, and mild rhabdomyolysis. 1.Severe anion gap metabolic acidosis -resolved; good response to therapies -DC bicarb drip; repeat labs in a.m. 2.KATIANA -resolved with volume -follow renals/divalents 3.Metabolic encephalopathy - frontotemporal dementia as per Neuro - HCP invoked. 4.HTN - resolved; continue diltiazem and metoprolol tartrate 5.EtOH dependence -CIWA -empiric thiamine. 6.Mood disorder - continue quetiapine, sertraline, prazosin; hold oxcarbazepine Full code Lovenox Requires ongoing hospitalization to monitor renal function and follow response to therapies. We will need safe placement Quality Stroke Does the patient have a stroke diagnosis?: No VTE Prior VTE?: No VTE Risk Level:: Medical - moderate - high VTE Device Contraindication: Treatment Not Indicated VTE Drug Contraindication: N/A - Med Ordered
[2024-06-17] MEDS: OXcarbazepine 150 MG TABLET PO (18:34)
[2024-06-17] MEDS: OXcarbazepine 300 MG TABLET PO (18:34)
[2024-06-17] MEDS: Enoxaparin Sodium 40 MG/0.4 ML SYRINGE SUBCUT (18:34)
[2024-06-17] MEDS: 0.9 % Sodium Chloride Flush 3 ML SYRINGE IVFLUSH ×2 (18:35→21:33)
[2024-06-17] MEDS: QUEtiapine Fumarate 100 MG TABLET PO (21:24)
[2024-06-17] MEDS: Prazosin HCL 1 MG CAPSULE PO (21:24)
[2024-06-18] VITALS (8 sets, daily range): BP systolic 109–162; BP diastolic 53–77; PULSE 62–77; RESP 17–20; TEMP 36.4–37.4; O2SAT 93–96
[2024-06-18 07:04] LABS: MANUAL DIFF FLAG NO
[2024-06-18 07:09] LABS: VBG Base Excess 15.9 mmol/L; VBG HCO3 41 mmol/L (22-26); VBG pCO2 56 mmHg; VBG pH 7.47 (7.32-7.43); VBG pO2 52 mmHg
[2024-06-18 07:09] LABS: Venous Blood Gas Refer to POC result
[2024-06-18 07:13] LABS: Basophils Percent Auto 0.6 % (0-2); Eosinophils Absolute Auto 0.1 X10*3/uL (0.0-0.4); Eosinophils Percent Auto 2.6 % (0-4); Hematocrit 31.4 % (37.0-47.0); Hemoglobin 10.6 g/dl (12.0-16.0); Imm Gran Abs Auto 0.03 X10*3/uL (0.00-0.03); Imm Gran Pct Auto 0.6 % (0.0-0.4); Lymphocytes Absolute Auto 1.8 X10*3/uL (1.2-4.9); Mean Corpuscular HGB Conc 33.8 g/dl (31.0-35.0); Mean Corpuscular Hemoglobin 30.7 pg (27.0-33.0); Mean Platelet Volume 9.5 fL (9.4-12.3); Monocytes Absolute Auto 0.5 X10*3/uL (0.1-1.2); Monocytes Percent Auto 8.4 % (2-11); Neutrophils Absolute Auto 2.9 x10*3/uL (2.0-8.3); Neutrophils Percent Auto 54.8 % (45-73); Platelet Count 138 X10*3/uL (160-400); Red Blood Count 3.45 X10*6/uL (4.20-5.50); Red Cell Distribution Width 13.2 % (11.0-16.0); White Blood Count 5.3 X10*3/uL (4.8-10.8)
[2024-06-18 07:30] LABS: Anion Gap 13 (12-20); Blood Urea Nitrogen 18 mg/dL (9-16); Calcium 8.1 mg/dL (8.4-10.2); Carbon Dioxide 34 mmol/L (22-29); Chloride 99 mmol/L (96-108); Creatinine Clr Calc Pharmacy 65.1; Estimated Glomerular Filt Rate 59; Glucose Random 107 mg/dL (60-115); Potassium 2.8 mmol/L (3.3-5.1); Sodium 143 mmol/L (135-145)
[2024-06-18 07:49] LABS: Magnesium 1.7 mg/dL (1.6-2.6)
[2024-06-18] MEDS: Folic Acid 1 MG TABLET PO (11:08)
[2024-06-18] MEDS: Metoprolol Tartrate 12.5 MG HALFTAB 37.5 MG PO (11:08)
[2024-06-18] MEDS: dilTIAZem HCL CD 120 MG CAP.ER.DEG PO (11:08)
[2024-06-18] MEDS: Sertraline HCL 100 MG TABLET 200 MG PO (11:08)
[2024-06-18] MEDS: Multivitamin TABLET 1 TAB PO (11:09)
[2024-06-18] MEDS: Nystatin Oral Susp 500,000 UNIT/5 ML ORAL.SUSP 500000 UNIT PO ×3 (11:09→20:41)
[2024-06-18] MEDS: oxyCODONE HCl Immed Release 5 MG TABLET PO ×3 (11:09→22:10)
[2024-06-18] MEDS: Thiamine HCL 250 MG in 0.9 % Sodium Chloride 100 ML 204 MG IV (11:10)
[2024-06-18 15:19] LABS: Methyl Alcohol NONE DETECTED
--- NOTE | 2024-06-18 15:52 | HO.PM.IMPN ---
Subjective Subjective Date of Service: 06/18/24 Interval History: Continues to be confused at times; nonsensical statements Review of Systems Denies chest pain Denies shortness of breath Denies nausea vomiting diarrhea Denies fever chills Physical Exam Vital Signs: Vital Signs: Last Vital Signs Temp 97.5 F 06/18/24 15:26 Pulse 75 06/18/24 15:26 Resp 17 06/18/24 15:26 BP 151/77 H 06/18/24 15:26 Pulse Ox 93 06/18/24 15:26 O2 Del Method Room Air 06/18/24 15:26 BMI result Body Mass Index 34.3 Const: Other: Awake alert oriented x3 at this time Resp: Other: Clear to auscultation bilaterally no rales rhonchi or wheezes Cardio: Other: No S4; positive S1-S2; no S3 murmurs rubs or gallops GI: Other: Soft nontender nondistended normoactive bowel sounds Neuro: Other: Cranial nerves 2-12 grossly intact as tested. Moving all extremities with purpose. Gait not observed Extrem: Other: No edema bilaterally Objective Data Active Medications Acetaminophen (Acetaminophen 325 Mg Tablet) 650 mg PO Q6H PRN PRN Reason: Pain, Mild 1-3,fever,headache Last Admin: 06/17/24 03:30 Dose: 650 mg Documented By: ARASH Baclofen (Baclofen 10 Mg Tablet) 10 mg PO DAILY [facility] Baclofen (Baclofen 20 Mg Tablet) 20 mg PO BEDTIME [facility] Last Admin: 06/15/24 21:53 Dose: Not Given Documented By: KRISTEL Non-Admin Reason: Patient Refused Calcium Carbonate (Calcium Carbonate 750 Mg Tab.Chew) 750 mg PO Q4H PRN PRN Reason: Heartburn Chlorhexidine Gluconate (Chlorhexidine Gluc Oral Rinse 15 Ml Mouthwash) 15 ml BUCCAL TID [facility] Last Admin: 06/18/24 11:10 Dose: Not Given Documented By: GILMAR Non-Admin Reason: Duplicate Order Diltiazem HCl (Diltiazem Hcl Cd 120 Mg Cap.Er.Deg) 120 mg PO DAILY [facility]; Protocol Last Admin: 06/18/24 11:08 Dose: 120 mg Documented By: GILMAR Enoxaparin Sodium (Enoxaparin Sodium 40 Mg/0.4 Ml Syringe) 40 mg SUBCUT Q24H [facility] Last Admin: 06/17/24 18:34 Dose: 40 mg Documented By: YAYO Ergocalciferol (Ergocalciferol (Vitamin D2) 1,250 Mcg Capsule) 1,250 mcg PO Suarez@0900 [facility] Folic Acid (Folic Acid 1 Mg Tablet) 1 mg PO DAILY [facility] Last Admin: 06/18/24 11:08 Dose: 1 mg Documented By: GILMAR Thiamine HCl 250 mg/ Sodium (Chloride) 102.5 mls @ 204 mls/hr IV DAILY [facility] Stop: 06/21/24 08:59 Last Infusion: 06/18/24 12:24 Dose: Infused Documented By: BRENDA Lorazepam (Lorazepam 0.5 Mg Tablet) 0.5 mg PO BID PRN PRN Reason: Anxiety Last Admin: 06/17/24 16:41 Dose: 0.5 mg Documented By: YAYO Lorazepam (Lorazepam 1 Mg Tablet) 1 mg PO Q2H PRN PRN Reason: ciwa 6-10 Lorazepam (Lorazepam 1 Mg Tablet) 2 mg PO Q2H PRN PRN Reason: ciwa 11+ Magnesium Hydroxide (Milk Of Magnesia 30 Ml Oral.Susp) 30 ml PO DAILY PRN PRN Reason: Constipation Melatonin (Melatonin 3 Mg Tablet) 6 mg PO BEDTIME PRN PRN Reason: Insomnia Metoprolol Tartrate (Metoprolol Tartrate 12.5 Mg Halftab) 37.5 mg PO BID [facility]; Protocol Last Admin: 06/18/24 11:08 Dose: 37.5 mg Documented By: GILMAR Multivitamins/Vitamin C (Multivitamin Tablet) 1 tab PO DAILY [facility] Last Admin: 06/18/24 11:09 Dose: 1 tab Documented By: GILMAR Nystatin (Nystatin Oral Susp 500,000 Unit/5 Ml Oral.Susp) 500,000 unit PO QID [facility]; Protocol Last Admin: 06/18/24 11:09 Dose: 500,000 unit Documented By: GILMAR Oxcarbazepine (Oxcarbazepine 150 Mg Tablet) 150 mg PO BID [facility] Last Admin: 06/15/24 21:53 Dose: Not Given Documented By: KRISTEL Non-Admin Reason: Patient Refused Oxcarbazepine (Oxcarbazepine 300 Mg Tablet) 300 mg PO BID [facility] Last Admin: 06/15/24 21:54 Dose: Not Given Documented By: KRISTEL Non-Admin Reason: Patient Refused Oxycodone HCl (Oxycodone Hcl Immed Release 5 Mg Tablet) 5 mg PO BID [facility] Last Admin: 06/18/24 11:09 Dose: 5 mg Documented By: GILMAR Prazosin HCl (Prazosin Hcl 1 Mg Capsule) 1 mg PO BEDTIME [facility]; Protocol Last Admin: 06/17/24 21:24 Dose: 1 mg Documented By: KRISTEL Quetiapine Fumarate (Quetiapine Fumarate 100 Mg Tablet) 100 mg PO BEDTIME [facility] Last Admin: 06/17/24 21:24 Dose: 100 mg Documented By: KRISTEL Sertraline HCl (Sertraline Hcl 100 Mg Tablet) 200 mg PO DAILY [facility] Last Admin: 06/18/24 11:08 Dose: 200 mg Documented By: GILMAR Sodium Chloride (0.9 % Sodium Chloride Flush 3 Ml Syringe) 3 ml IVFLUSH QSHIFT [facility] Last Admin: 06/18/24 11:09 Dose: Not Given Documented By: GILMAR Non-Admin Reason: IV Running Tolterodine Tartrate (Tolterodine Tartrate La 4 Mg Cap.Er.24h) 4 mg PO DAILY [facility] Zolpidem Tartrate (Zolpidem Tartrate 5 Mg Tablet) 5 mg PO BEDTIME PRN PRN Reason: Sleep Labs 06/18/24 06:57 06/18/24 06:57 Labs: Laboratory Results - last 24 hr 06/16/24 06/18/24 06/18/24 08:56 06:57 07:04 MCV 91.0 MCH 30.7 MCHC 33.8 RDW 13.2 Plt Count 138 L MPV 9.5 Immature Gran % (Auto) 0.6 H Neut % (Auto) 54.8 Lymph % (Auto) 33.0 Gilchrist % (Auto) 8.4 Eos % (Auto) 2.6 Baso % (Auto) 0.6 Lymph # (Auto) 1.8 Gilchrist # (Auto) 0.5 Eos # (Auto) 0.1 Baso # (Auto) 0.0 Abs Immat Gran (auto) 0.03 Absolute Neuts (auto) 2.9 Absolute Nucleated RBC 0.000 Nucleated RBC % (auto) 0.0 VBG pH 7.47 H VBG pCO2 56 VBG pO2 52 VBG HCO3 41 H VBG O2 Saturation 82.0 VBG Base Excess 15.9 Anion Gap 13 Estim Creat Clear Calc 65.1 Estimated GFR 59 Random Glucose 107 Calcium 8.1 L Magnesium 1.7 Total Creatine Kinase 363 H Methyl Alcohol Level NONE DETECTED Microbiology Microbiology Results: Microbiology 06/15/24 12:50 Blood Culture - Preliminary Blood - Venous No growth after 48 hours. 06/15/24 12:30 Blood Culture - Preliminary Blood - Venous No growth after 48 hours. Assessment and Plan (1) Frontotemporal dementia: Status: Acute (2) CKD (chronic kidney disease) stage 2, GFR 60-89 ml/min: Status: Acute Plan d2 for 68 yo F with provisional diagnosis of MS on ocrelizumab, HTN, HLD, osteoarthritis, chronic pain syndrome, SVT, dysphagia, GERD, excess EtOH intake, and depression who lives alone and was found be a neighbor down on the floor for an unknown amount of time. Found to have prerenal KATIANA, anion gap acidosis, and mild rhabdomyolysis. 1.Metabolic encephalopathy - frontotemporal dementia as per Neuro -essentially no improvement since admission . .. Minimal at best - HCP invoked. -PT consult; we will need placement 2.KATIANA -resolved with volume -follow renals/divalents 3.HTN -acceptable control on current therapy -adjust as indicated 5.EtOH dependence -CIWA remains flat during this admission -empiric thiamine. Full code Lovenox Requires ongoing hospitalization to monitor renal function and follow response to therapies. We will need safe placement Quality Stroke Does the patient have a stroke diagnosis?: No VTE Prior VTE?: No VTE Risk Level:: Medical - moderate - high VTE Device Contraindication: Treatment Not Indicated VTE Drug Contraindication: N/A - Med Ordered
[2024-06-18] MEDS: Chlorhexidine Gluc Oral Rinse 15 ML MOUTHWASH BUCCAL ×2 (16:06→20:56)
[2024-06-18] MEDS: 0.9 % Sodium Chloride Flush 3 ML SYRINGE IVFLUSH ×2 (16:07→20:55)
[2024-06-18] MEDS: Enoxaparin Sodium 40 MG/0.4 ML SYRINGE SUBCUT (18:06)
[2024-06-18] MEDS: QUEtiapine Fumarate 100 MG TABLET PO (20:39)
[2024-06-18] MEDS: Prazosin HCL 1 MG CAPSULE PO ×2 (20:39→20:42)
[2024-06-18] MEDS: LORazepam 0.5 MG TABLET PO (20:51)
[2024-06-19 03:45] VITALS: BP 117/57; PULSE 65; RESP 18; TEMP 36.8; O2SAT 97
[2024-06-19 07:30] VITALS: BP 141/65; PULSE 69; RESP 18; TEMP 36.9; O2SAT 96
[2024-06-19 10:51] VITALS: BP 139/63; PULSE 75; RESP 16; TEMP 36.4; O2SAT 96
[2024-06-19] MEDS: 0.9 % Sodium Chloride Flush 3 ML SYRINGE IVFLUSH ×3 (11:03→21:59)
[2024-06-19] MEDS: Sertraline HCL 100 MG TABLET 200 MG PO (11:04)
[2024-06-19] MEDS: Metoprolol Tartrate 12.5 MG HALFTAB 37.5 MG PO ×2 (11:04→20:23)
[2024-06-19] MEDS: Folic Acid 1 MG TABLET PO (11:04)
[2024-06-19] MEDS: Nystatin Oral Susp 500,000 UNIT/5 ML ORAL.SUSP 500000 UNIT PO ×3 (11:04→20:22)
[2024-06-19] MEDS: Chlorhexidine Gluc Oral Rinse 15 ML MOUTHWASH BUCCAL ×3 (11:04→20:22)
[2024-06-19] MEDS: Multivitamin TABLET 1 TAB PO (11:05)
[2024-06-19] MEDS: oxyCODONE HCl Immed Release 5 MG TABLET PO ×2 (11:05→21:59)
[2024-06-19] MEDS: dilTIAZem HCL CD 120 MG CAP.ER.DEG PO (11:05)
[2024-06-19] MEDS: Thiamine HCL 250 MG in 0.9 % Sodium Chloride 100 ML 204 MG IV (11:05)
[2024-06-19] MEDS: LORazepam 0.5 MG TABLET PO (11:14)
--- NOTE | 2024-06-19 11:40 | P.PNIM_ITS ---
Subjective Subjective Date of Service: 06/19/24 Interval History: Seen and evaluated this morning Feels better overall keeps repeating her concerns has muscle spasms and urine incontinence no other events Review of Systems Review of Systems: Yes all other systems are reviewed and are negative Physical Exam 2 Vital Signs: Vital Signs: Last Vital Signs Temp 97.5 F 06/19/24 10:51 Pulse 75 06/19/24 10:51 Resp 16 06/19/24 10:51 BP 139/63 06/19/24 10:51 Pulse Ox 96 06/19/24 10:51 O2 Del Method Room Air 06/19/24 10:51 BMI result Body Mass Index 34.3 Const: Other: Constitutional : interactive, not in distress Cardiovascular : no JVP, no lower extremity edema Respiratory : bilateral chest movement, not in resp distress Gastrointestinal: soft, lax, Non tender Skin : Warm, Dry Neurological : Alert & oriented , No focal deficit Objective Data Active Medications Acetaminophen (Acetaminophen 325 Mg Tablet) 650 mg PO Q6H PRN PRN Reason: Pain, Mild 1-3,fever,headache Last Admin: 06/17/24 03:30 Dose: 650 mg Documented By: ARASH Baclofen (Baclofen 10 Mg Tablet) 10 mg PO DAILY [facility] Baclofen (Baclofen 20 Mg Tablet) 20 mg PO BEDTIME [facility] Last Admin: 06/15/24 21:53 Dose: Not Given Documented By: KRISTEL Non-Admin Reason: Patient Refused Calcium Carbonate (Calcium Carbonate 750 Mg Tab.Chew) 750 mg PO Q4H PRN PRN Reason: Heartburn Chlorhexidine Gluconate (Chlorhexidine Gluc Oral Rinse 15 Ml Mouthwash) 15 ml BUCCAL TID [facility] Last Admin: 06/19/24 11:04 Dose: 15 ml Documented By: BRENDA Diltiazem HCl (Diltiazem Hcl Cd 120 Mg Cap.Er.Deg) 120 mg PO DAILY [facility]; Protocol Last Admin: 06/19/24 11:05 Dose: 120 mg Documented By: BRENDA Enoxaparin Sodium (Enoxaparin Sodium 40 Mg/0.4 Ml Syringe) 40 mg SUBCUT Q24H [facility] Last Admin: 06/18/24 18:06 Dose: 40 mg Documented By: BRENDA Ergocalciferol (Ergocalciferol (Vitamin D2) 1,250 Mcg Capsule) 1,250 mcg PO Suarez@0900 [facility] Folic Acid (Folic Acid 1 Mg Tablet) 1 mg PO DAILY [facility] Last Admin: 06/19/24 11:04 Dose: 1 mg Documented By: BRENDA Thiamine HCl 250 mg/ Sodium (Chloride) 102.5 mls @ 204 mls/hr IV DAILY [facility] Stop: 06/21/24 08:59 Last Admin: 06/19/24 11:05 Dose: 204 mls/hr Documented By: BRENDA Lorazepam (Lorazepam 0.5 Mg Tablet) 0.5 mg PO BID PRN PRN Reason: Anxiety Last Admin: 06/19/24 11:14 Dose: 0.5 mg Documented By: BRENDA Magnesium Hydroxide (Milk Of Magnesia 30 Ml Oral.Susp) 30 ml PO DAILY PRN PRN Reason: Constipation Melatonin (Melatonin 3 Mg Tablet) 6 mg PO BEDTIME PRN PRN Reason: Insomnia Metoprolol Tartrate (Metoprolol Tartrate 12.5 Mg Halftab) 37.5 mg PO BID [facility]; Protocol Last Admin: 06/19/24 11:04 Dose: 37.5 mg Documented By: BRENDA Multivitamins/Vitamin C (Multivitamin Tablet) 1 tab PO DAILY [facility] Last Admin: 06/19/24 11:05 Dose: 1 tab Documented By: BRENDA Nystatin (Nystatin Oral Susp 500,000 Unit/5 Ml Oral.Susp) 500,000 unit PO QID [facility]; Protocol Last Admin: 06/19/24 11:04 Dose: 500,000 unit Documented By: BRENDA Oxcarbazepine (Oxcarbazepine 150 Mg Tablet) 150 mg PO BID [facility] Last Admin: 06/15/24 21:53 Dose: Not Given Documented By: KRISTEL Non-Admin Reason: Patient Refused Oxcarbazepine (Oxcarbazepine 300 Mg Tablet) 300 mg PO BID [facility] Last Admin: 06/15/24 21:54 Dose: Not Given Documented By: KRISTEL Non-Admin Reason: Patient Refused Oxycodone HCl (Oxycodone Hcl Immed Release 5 Mg Tablet) 5 mg PO BID [facility] Last Admin: 06/19/24 11:05 Dose: 5 mg Documented By: BRENDA Oxycodone HCl (Oxycodone Hcl Immed Release 5 Mg Tablet) 5 mg PO Q4H PRN PRN Reason: Pain, Moderate(Pain Scale 4-6) Last Admin: 06/18/24 18:06 Dose: 5 mg Documented By: BRENDA Prazosin HCl (Prazosin Hcl 1 Mg Capsule) 1 mg PO BEDTIME [facility]; Protocol Last Admin: 06/18/24 20:42 Dose: 1 mg Documented By: ARASH Quetiapine Fumarate (Quetiapine Fumarate 100 Mg Tablet) 100 mg PO BEDTIME [facility] Last Admin: 06/18/24 20:39 Dose: 100 mg Documented By: ARASH Sertraline HCl (Sertraline Hcl 100 Mg Tablet) 200 mg PO DAILY [facility] Last Admin: 06/19/24 11:04 Dose: 200 mg Documented By: BRENDA Sodium Chloride (0.9 % Sodium Chloride Flush 3 Ml Syringe) 3 ml IVFLUSH QSHIFT [facility] Last Admin: 06/19/24 11:03 Dose: 3 ml Documented By: BRENDA Tolterodine Tartrate (Tolterodine Tartrate La 4 Mg Cap.Er.24h) 4 mg PO DAILY [facility] Zolpidem Tartrate (Zolpidem Tartrate 5 Mg Tablet) 5 mg PO BEDTIME PRN PRN Reason: Sleep Labs 06/18/24 06:57 06/18/24 06:57 Labs: Laboratory Results - last 24 hr 06/16/24 06/19/24 08:56 06:35 Hold Purple Top SEE NOTE Total Creatine Kinase 247 H Methyl Alcohol Level NONE DETECTED Assessment and Plan (1) Metabolic acidosis: Status: Acute (2) Frontotemporal dementia: Status: Acute (3) Rhabdomyolysis: Status: Acute (4) KATIANA (acute kidney injury): Status: Acute Plan d2 for 68 yo F with provisional diagnosis of MS on ocrelizumab, HTN, HLD, osteoarthritis, chronic pain syndrome, SVT, dysphagia, GERD, excess EtOH intake, and depression who lives alone and was found be a neighbor down on the floor for an unknown amount of time. Found to have prerenal KATIANA, anion gap acidosis, and mild rhabdomyolysis. # Acute Metabolic encephalopathy 2/2 frontotemporal dementia patient is alert and oriented to self and place can get easily discracted and confused, keep going in cycles of complaints HCP invoked PT consult; will need placement # KATIANA 2/2 Rhabdo resolved follow renals/divalents #HTN better control on current therapy adjust as indicated # Hx EtOH dependence CIWA remains flat during this admission thiamine therapy for wernicke with IV then PO # Muscles spasm , overreactive bladder restart Baclofen, Tolterodine, Prazosin and Trileptal Full code Lovenox Requires ongoing hospitalization to monitor renal function and follow response to therapies. We will need safe placement Quality Stroke Does the patient have a stroke diagnosis?: No VTE Prior VTE?: No VTE Risk Level:: Medical - moderate - high VTE Device Contraindication: Treatment Not Indicated VTE Drug Contraindication: N/A - Med Ordered
[2024-06-19 15:54] VITALS: BP 134/66; PULSE 76; RESP 18; TEMP 36.6; O2SAT 96
[2024-06-19] MEDS: Enoxaparin Sodium 40 MG/0.4 ML SYRINGE SUBCUT (17:16)
[2024-06-19 20:00] VITALS: BP 130/60; PULSE 76; RESP 18; TEMP 36.4; O2SAT 96
[2024-06-19] MEDS: OXcarbazepine 300 MG TABLET PO (20:22)
[2024-06-19] MEDS: Prazosin HCL 1 MG CAPSULE PO (20:22)
[2024-06-19] MEDS: QUEtiapine Fumarate 100 MG TABLET PO (20:23)
[2024-06-19] MEDS: Baclofen 20 MG TABLET PO (20:23)
[2024-06-19] MEDS: Zolpidem Tartrate 5 MG TABLET PO (20:23)
[2024-06-19 23:57] VITALS: BP 96/53; PULSE 70; RESP 16; TEMP 36.4; O2SAT 93
[2024-06-20 04:00] VITALS: BP 119/58; PULSE 62; RESP 18; TEMP 36.8; O2SAT 95
[2024-06-20 08:00] VITALS: BP 114/63; PULSE 64; RESP 17; TEMP 36.8; O2SAT 90
[2024-06-20] MEDS: Sertraline HCL 100 MG TABLET 200 MG PO (09:06)
[2024-06-20] MEDS: Metoprolol Tartrate 12.5 MG HALFTAB 37.5 MG PO ×2 (09:06→22:42)
[2024-06-20] MEDS: Folic Acid 1 MG TABLET PO (09:06)
[2024-06-20] MEDS: oxyCODONE HCl Immed Release 5 MG TABLET PO ×2 (09:07→22:40)
[2024-06-20] MEDS: Thiamine HCL 250 MG in 0.9 % Sodium Chloride 100 ML 204 MG IV (09:08)
[2024-06-20] MEDS: Ergocalciferol (Vitamin D2) 1,250 MCG CAPSULE 1250 MCG PO (09:08)
[2024-06-20] MEDS: Multivitamin TABLET 1 TAB PO (09:08)
[2024-06-20] MEDS: dilTIAZem HCL CD 120 MG CAP.ER.DEG PO (09:08)
[2024-06-20] MEDS: Chlorhexidine Gluc Oral Rinse 15 ML MOUTHWASH BUCCAL ×3 (09:08→22:38)
[2024-06-20] MEDS: OXcarbazepine 300 MG TABLET PO ×2 (09:08→22:38)
[2024-06-20] MEDS: Tolterodine Tartrate LA 4 MG CAP.ER.24H PO (09:08)
[2024-06-20] MEDS: Baclofen 10 MG TABLET PO (09:08)
[2024-06-20] MEDS: Nystatin Oral Susp 500,000 UNIT/5 ML ORAL.SUSP 500000 UNIT PO ×4 (09:08→22:38)
[2024-06-20] MEDS: 0.9 % Sodium Chloride Flush 3 ML SYRINGE IVFLUSH ×3 (09:19→22:43)
[2024-06-20] MEDS: LORazepam 0.5 MG TABLET PO (09:28)
[2024-06-20 09:53] LABS: Anion Gap 13 (12-20); Blood Urea Nitrogen 16 mg/dL (9-16); Calcium 8.4 mg/dL (8.4-10.2); Carbon Dioxide 29 mmol/L (22-29); Chloride 106 mmol/L (96-108); Estimated Glomerular Filt Rate > 60; Glucose Random 103 mg/dL (60-115); Potassium 3.5 mmol/L (3.3-5.1); Sodium 144 mmol/L (135-145)
[2024-06-20 11:31] VITALS: BP 96/48; PULSE 60; RESP 17; TEMP 36.8; O2SAT 94
--- NOTE | 2024-06-20 12:34 | P.PNIM_ITS ---
Subjective Subjective Date of Service: 06/20/24 Interval History: Seen and evaluated this morning resting Feels better overall improved muscle spasms and urine incontinence no other events Review of Systems Review of Systems: Yes all other systems are reviewed and are negative Physical Exam 2 Vital Signs: Vital Signs: Last Vital Signs Temp 98.2 F 06/20/24 11:31 Pulse 60 06/20/24 11:31 Resp 17 06/20/24 11:31 BP 96/48 L 06/20/24 11:31 Pulse Ox 94 06/20/24 11:31 O2 Del Method Room Air 06/20/24 11:31 BMI result Body Mass Index 34.3 Const: Other: Constitutional : interactive, not in distress Cardiovascular : no JVP, no lower extremity edema Respiratory : bilateral chest movement, not in resp distress Gastrointestinal: soft, lax, Non tender Skin : Warm, Dry Neurological : Alert & oriented , No focal deficit Objective Data Active Medications Acetaminophen (Acetaminophen 325 Mg Tablet) 650 mg PO Q6H PRN PRN Reason: Pain, Mild 1-3,fever,headache Last Admin: 06/17/24 03:30 Dose: 650 mg Documented By: ARASH Baclofen (Baclofen 10 Mg Tablet) 10 mg PO DAILY [facility] Last Admin: 06/20/24 09:08 Dose: 10 mg Documented By: MARLO Baclofen (Baclofen 20 Mg Tablet) 20 mg PO BEDTIME [facility] Last Admin: 06/19/24 20:23 Dose: 20 mg Documented By: BRYAN Calcium Carbonate (Calcium Carbonate 750 Mg Tab.Chew) 750 mg PO Q4H PRN PRN Reason: Heartburn Chlorhexidine Gluconate (Chlorhexidine Gluc Oral Rinse 15 Ml Mouthwash) 15 ml BUCCAL TID [facility] Last Admin: 06/20/24 09:08 Dose: 15 ml Documented By: MARLO Diltiazem HCl (Diltiazem Hcl Cd 120 Mg Cap.Er.Deg) 120 mg PO DAILY [facility]; Protocol Last Admin: 06/20/24 09:08 Dose: 120 mg Documented By: MARLO Enoxaparin Sodium (Enoxaparin Sodium 40 Mg/0.4 Ml Syringe) 40 mg SUBCUT Q24H [facility] Last Admin: 06/19/24 17:16 Dose: 40 mg Documented By: BRENDA Ergocalciferol (Ergocalciferol (Vitamin D2) 1,250 Mcg Capsule) 1,250 mcg PO Suarez@0900 [facility] Last Admin: 06/20/24 09:08 Dose: 1,250 mcg Documented By: MARLO Folic Acid (Folic Acid 1 Mg Tablet) 1 mg PO DAILY [facility] Last Admin: 06/20/24 09:06 Dose: 1 mg Documented By: MARLO Thiamine HCl 250 mg/ Sodium (Chloride) 102.5 mls @ 204 mls/hr IV DAILY [facility] Stop: 06/21/24 08:59 Last Infusion: 06/20/24 09:40 Dose: Infused Documented By: MARLO Lorazepam (Lorazepam 0.5 Mg Tablet) 0.5 mg PO BID PRN PRN Reason: Anxiety Last Admin: 06/20/24 09:28 Dose: 0.5 mg Documented By: MARLO Magnesium Hydroxide (Milk Of Magnesia 30 Ml Oral.Susp) 30 ml PO DAILY PRN PRN Reason: Constipation Melatonin (Melatonin 3 Mg Tablet) 6 mg PO BEDTIME PRN PRN Reason: Insomnia Metoprolol Tartrate (Metoprolol Tartrate 12.5 Mg Halftab) 37.5 mg PO BID [facility]; Protocol Last Admin: 06/20/24 09:06 Dose: 37.5 mg Documented By: MARLO Multivitamins/Vitamin C (Multivitamin Tablet) 1 tab PO DAILY [facility] Last Admin: 06/20/24 09:08 Dose: 1 tab Documented By: MARLO Nystatin (Nystatin Oral Susp 500,000 Unit/5 Ml Oral.Susp) 500,000 unit PO QID [facility]; Protocol Last Admin: 06/20/24 12:27 Dose: 500,000 unit Documented By: MARLO Oxcarbazepine (Oxcarbazepine 150 Mg Tablet) 150 mg PO BID [facility] Last Admin: 06/15/24 21:53 Dose: Not Given Documented By: KRISTEL Non-Admin Reason: Patient Refused Oxcarbazepine (Oxcarbazepine 300 Mg Tablet) 300 mg PO BID [facility] Last Admin: 06/20/24 09:08 Dose: 300 mg Documented By: MARLO Oxycodone HCl (Oxycodone Hcl Immed Release 5 Mg Tablet) 5 mg PO BID [facility] Last Admin: 06/20/24 09:07 Dose: 5 mg Documented By: MARLO Oxycodone HCl (Oxycodone Hcl Immed Release 5 Mg Tablet) 5 mg PO Q4H PRN PRN Reason: Pain, Moderate(Pain Scale 4-6) Last Admin: 06/18/24 18:06 Dose: 5 mg Documented By: BRENDA Prazosin HCl (Prazosin Hcl 1 Mg Capsule) 1 mg PO BEDTIME [facility]; Protocol Last Admin: 06/19/24 20:22 Dose: 1 mg Documented By: BRYAN Quetiapine Fumarate (Quetiapine Fumarate 100 Mg Tablet) 100 mg PO BEDTIME [facility] Last Admin: 06/19/24 20:23 Dose: 100 mg Documented By: BRYAN Sertraline HCl (Sertraline Hcl 100 Mg Tablet) 200 mg PO DAILY [facility] Last Admin: 06/20/24 09:06 Dose: 200 mg Documented By: MARLO Sodium Chloride (0.9 % Sodium Chloride Flush 3 Ml Syringe) 3 ml IVFLUSH QSHIFT [facility] Last Admin: 06/20/24 09:19 Dose: 3 ml Documented By: MARLO Tolterodine Tartrate (Tolterodine Tartrate La 4 Mg Cap.Er.24h) 4 mg PO DAILY [facility] Last Admin: 06/20/24 09:08 Dose: 4 mg Documented By: MARLO Zolpidem Tartrate (Zolpidem Tartrate 5 Mg Tablet) 5 mg PO BEDTIME PRN PRN Reason: Sleep Last Admin: 06/19/24 20:23 Dose: 5 mg Documented By: BRYAN Labs 06/18/24 06:57 06/20/24 07:49 Labs: Laboratory Results - last 24 hr 06/20/24 07:49 Hold Purple Top SEE NOTE Anion Gap 13 Estim Creat Clear Calc 68.0 Estimated GFR > 60 Random Glucose 103 Calcium 8.4 Assessment and Plan (1) Frontotemporal dementia: Status: Acute Plan d2 for 68 yo F with provisional diagnosis of MS on ocrelizumab, HTN, HLD, osteoarthritis, chronic pain syndrome, SVT, dysphagia, GERD, excess EtOH intake, and depression who lives alone and was found be a neighbor down on the floor for an unknown amount of time. Found to have prerenal KATIANA, anion gap acidosis, and mild rhabdomyolysis. # Acute Metabolic encephalopathy 2/2 frontotemporal dementia patient is alert and oriented to self and place can get easily discracted and confused, keep going in cycles of complaints HCP invoked PT consult; will need placement # KATIANA 2/2 Rhabdo resolved follow renals/divalents #HTN better control on current therapy adjust as indicated # Hx EtOH dependence CIWA remains flat during this admission thiamine therapy for wernicke with IV then PO # Muscles spasm , overreactive bladder restart Baclofen, Tolterodine, Prazosin and Trileptal Full code Lovenox Requires ongoing hospitalization to monitor renal function and follow response to therapies. We will need safe placement Quality Stroke Does the patient have a stroke diagnosis?: No VTE Prior VTE?: No VTE Risk Level:: Medical - moderate - high VTE Device Contraindication: Treatment Not Indicated VTE Drug Contraindication: N/A - Med Ordered
--- NOTE | 2024-06-20 13:26 | MHC.CM.PN ---
Per MD, pt. is not able to go home after DC, she requires more care, referrals out for STR.
[2024-06-20 15:48] VITALS: BP 132/69; PULSE 67; RESP 18; TEMP 36.7; O2SAT 94
[2024-06-20] MEDS: Enoxaparin Sodium 40 MG/0.4 ML SYRINGE SUBCUT (17:02)
[2024-06-20 19:59] VITALS: BP 134/63; PULSE 64; RESP 16; TEMP 36.8; O2SAT 96
[2024-06-20 22:39] VITALS: BP 137/69
[2024-06-20] MEDS: Zolpidem Tartrate 5 MG TABLET PO (22:39)
[2024-06-20] MEDS: Prazosin HCL 1 MG CAPSULE PO (22:39)
[2024-06-20] MEDS: QUEtiapine Fumarate 100 MG TABLET PO (22:40)
[2024-06-20] MEDS: Baclofen 20 MG TABLET PO (22:40)
[2024-06-20] MEDS: Melatonin 3 MG TABLET 6 MG PO (22:42)
[2024-06-21] VITALS (8 sets, daily range): BP systolic 99–124; BP diastolic 52–72; PULSE 60–75; RESP 16–20; TEMP 36.3–37.9; O2SAT 90–97
[2024-06-21] MEDS: Sertraline HCL 100 MG TABLET 200 MG PO (09:18)
[2024-06-21] MEDS: Multivitamin TABLET 1 TAB PO (09:18)
[2024-06-21] MEDS: Tolterodine Tartrate LA 4 MG CAP.ER.24H PO (09:18)
[2024-06-21] MEDS: Baclofen 10 MG TABLET PO (09:19)
[2024-06-21] MEDS: dilTIAZem HCL CD 120 MG CAP.ER.DEG PO (09:19)
[2024-06-21] MEDS: oxyCODONE HCl Immed Release 5 MG TABLET PO ×4 (09:19→23:44)
[2024-06-21] MEDS: Folic Acid 1 MG TABLET PO (09:19)
[2024-06-21] MEDS: Nystatin Oral Susp 500,000 UNIT/5 ML ORAL.SUSP 500000 UNIT PO ×4 (09:20→21:34)
[2024-06-21] MEDS: Chlorhexidine Gluc Oral Rinse 15 ML MOUTHWASH BUCCAL ×3 (09:20→21:35)
[2024-06-21] MEDS: OXcarbazepine 300 MG TABLET PO ×2 (09:20→21:34)
[2024-06-21] MEDS: Metoprolol Tartrate 12.5 MG HALFTAB 37.5 MG PO ×2 (09:20→21:35)
[2024-06-21] MEDS: 0.9 % Sodium Chloride Flush 3 ML SYRINGE IVFLUSH ×3 (09:24→21:35)
--- NOTE | 2024-06-21 09:36 | P.PNIM_ITS ---
Subjective Subjective Date of Service: 06/22/24 Interval History: Seen and evaluated this morning she feels better overall but has many complaints improved muscle spasms and urine incontinence no other events Review of Systems Review of Systems: Yes all other systems are reviewed and are negative Physical Exam 2 Vital Signs: Vital Signs: Last Vital Signs Temp 97.4 F 06/21/24 07:46 Pulse 61 06/21/24 07:46 Resp 16 06/21/24 07:46 BP 115/63 06/21/24 07:46 Pulse Ox 95 06/21/24 07:46 O2 Del Method Room Air 06/21/24 07:46 BMI result Body Mass Index 34.3 Const: Other: Constitutional : interactive, not in distress Cardiovascular : no JVP, no lower extremity edema Respiratory : bilateral chest movement, not in resp distress Gastrointestinal: soft, lax, Non tender Skin : Warm, Dry Neurological : Alert & oriented , No focal deficit Objective Data Active Medications Acetaminophen (Acetaminophen 325 Mg Tablet) 650 mg PO Q6H PRN PRN Reason: Pain, Mild 1-3,fever,headache Last Admin: 06/17/24 03:30 Dose: 650 mg Documented By: ARASH Baclofen (Baclofen 10 Mg Tablet) 10 mg PO DAILY [facility] Last Admin: 06/21/24 09:19 Dose: 10 mg Documented By: MARLO Baclofen (Baclofen 20 Mg Tablet) 20 mg PO BEDTIME [facility] Last Admin: 06/20/24 22:40 Dose: 20 mg Documented By: CHEN Calcium Carbonate (Calcium Carbonate 750 Mg Tab.Chew) 750 mg PO Q4H PRN PRN Reason: Heartburn Chlorhexidine Gluconate (Chlorhexidine Gluc Oral Rinse 15 Ml Mouthwash) 15 ml BUCCAL TID [facility] Last Admin: 06/21/24 09:20 Dose: 15 ml Documented By: MARLO Diltiazem HCl (Diltiazem Hcl Cd 120 Mg Cap.Er.Deg) 120 mg PO DAILY [facility]; Protocol Last Admin: 06/21/24 09:19 Dose: 120 mg Documented By: MARLO Enoxaparin Sodium (Enoxaparin Sodium 40 Mg/0.4 Ml Syringe) 40 mg SUBCUT Q24H [facility] Last Admin: 06/20/24 17:02 Dose: 40 mg Documented By: MARLO Ergocalciferol (Ergocalciferol (Vitamin D2) 1,250 Mcg Capsule) 1,250 mcg PO Suarez@0900 [facility] Last Admin: 06/20/24 09:08 Dose: 1,250 mcg Documented By: MARLO Folic Acid (Folic Acid 1 Mg Tablet) 1 mg PO DAILY [facility] Last Admin: 06/21/24 09:19 Dose: 1 mg Documented By: MARLO Magnesium Hydroxide (Milk Of Magnesia 30 Ml Oral.Susp) 30 ml PO DAILY PRN PRN Reason: Constipation Melatonin (Melatonin 3 Mg Tablet) 6 mg PO BEDTIME PRN PRN Reason: Insomnia Last Admin: 06/20/24 22:42 Dose: 6 mg Documented By: CHEN Metoprolol Tartrate (Metoprolol Tartrate 12.5 Mg Halftab) 37.5 mg PO BID [facility]; Protocol Last Admin: 06/21/24 09:20 Dose: 37.5 mg Documented By: MARLO Multivitamins/Vitamin C (Multivitamin Tablet) 1 tab PO DAILY [facility] Last Admin: 06/21/24 09:18 Dose: 1 tab Documented By: MARLO Nystatin (Nystatin Oral Susp 500,000 Unit/5 Ml Oral.Susp) 500,000 unit PO QID [facility]; Protocol Last Admin: 06/21/24 09:20 Dose: 500,000 unit Documented By: MARLO Oxcarbazepine (Oxcarbazepine 150 Mg Tablet) 150 mg PO BID [facility] Last Admin: 06/15/24 21:53 Dose: Not Given Documented By: KRISTEL Non-Admin Reason: Patient Refused Oxcarbazepine (Oxcarbazepine 300 Mg Tablet) 300 mg PO BID [facility] Last Admin: 06/21/24 09:20 Dose: 300 mg Documented By: MARLO Oxycodone HCl (Oxycodone Hcl Immed Release 5 Mg Tablet) 5 mg PO BID [facility] Last Admin: 06/21/24 09:19 Dose: 5 mg Documented By: MARLO Oxycodone HCl (Oxycodone Hcl Immed Release 5 Mg Tablet) 5 mg PO Q4H PRN PRN Reason: Pain, Moderate(Pain Scale 4-6) Last Admin: 06/18/24 18:06 Dose: 5 mg Documented By: BRENDA Prazosin HCl (Prazosin Hcl 1 Mg Capsule) 1 mg PO BEDTIME [facility]; Protocol Last Admin: 06/20/24 22:39 Dose: 1 mg Documented By: CHEN Quetiapine Fumarate (Quetiapine Fumarate 100 Mg Tablet) 100 mg PO BEDTIME [facility] Last Admin: 06/20/24 22:40 Dose: 100 mg Documented By: CHEN Sertraline HCl (Sertraline Hcl 100 Mg Tablet) 200 mg PO DAILY [facility] Last Admin: 06/21/24 09:18 Dose: 200 mg Documented By: MARLO Sodium Chloride (0.9 % Sodium Chloride Flush 3 Ml Syringe) 3 ml IVFLUSH QSHIFT [facility] Last Admin: 06/21/24 09:24 Dose: 3 ml Documented By: MARLO Tolterodine Tartrate (Tolterodine Tartrate La 4 Mg Cap.Er.24h) 4 mg PO DAILY [facility] Last Admin: 06/21/24 09:18 Dose: 4 mg Documented By: MARLO Zolpidem Tartrate (Zolpidem Tartrate 5 Mg Tablet) 5 mg PO BEDTIME PRN PRN Reason: Sleep Last Admin: 06/20/24 22:39 Dose: 5 mg Documented By: CHEN Labs 06/18/24 06:57 06/20/24 07:49 Labs: Laboratory Results - last 24 hr 06/20/24 07:49 Anion Gap 13 Estim Creat Clear Calc 68.0 Estimated GFR > 60 Random Glucose 103 Calcium 8.4 Microbiology Microbiology Results: Microbiology 06/15/24 12:50 Blood Culture - Final Blood - Venous No growth after 5 days. 06/15/24 12:30 Blood Culture - Final Blood - Venous No growth after 5 days. Assessment and Plan (1) Frontotemporal dementia: Status: Acute Plan d2 for 68 yo F with provisional diagnosis of MS on ocrelizumab, HTN, HLD, osteoarthritis, chronic pain syndrome, SVT, dysphagia, GERD, excess EtOH intake, and depression who lives alone and was found be a neighbor down on the floor for an unknown amount of time. Found to have prerenal KATIANA, anion gap acidosis, and mild rhabdomyolysis. # Acute Metabolic encephalopathy 2/2 frontotemporal dementia patient is alert and oriented to self and place but can get easily discracted and confused, keep going in cycles of complaints HCP invoked and SNF placement pending PT consult; will need placement # KATIANA 2/2 Rhabdo resolved follow renals/divalents #HTN better control on current therapy adjust as indicated # Hx EtOH dependence CIWA remains flat during this admission thiamine therapy for wernicke with PO after finishing IV doses # Muscles spasm , overreactive bladder restart Baclofen, Tolterodine, Prazosin and Trileptal Full code Lovenox Requires ongoing hospitalization to monitor renal function and follow response to therapies. We will need safe placement Quality Stroke Does the patient have a stroke diagnosis?: No VTE Prior VTE?: No VTE Risk Level:: Medical - moderate - high VTE Device Contraindication: Treatment Not Indicated VTE Drug Contraindication: N/A - Med Ordered
--- NOTE | 2024-06-21 15:35 | MHC.CM.PN ---
EMR REVIEWED, CM STILL AWAITING STR BED OFFER AFTER FACILITY NOT RESPONDING, OTHER FACILITIES INTERESTED HOWEVER NO OFFICIAL BED OFFERS AT THIS TIME, CM WILL CONT TO FOLLOW DC NEEDS.
[2024-06-21] MEDS: Enoxaparin Sodium 40 MG/0.4 ML SYRINGE SUBCUT (16:56)
[2024-06-21] MEDS: Prazosin HCL 1 MG CAPSULE PO (21:34)
[2024-06-21] MEDS: Zolpidem Tartrate 5 MG TABLET PO (21:34)
[2024-06-21] MEDS: Baclofen 20 MG TABLET PO (21:35)
[2024-06-21] MEDS: QUEtiapine Fumarate 100 MG TABLET PO (21:35)
[2024-06-21] MEDS: LORazepam 1 MG TABLET PO (23:44)
[2024-06-22 03:20] VITALS: BP 90/47; PULSE 58; RESP 16; TEMP 26.4; O2SAT 96
[2024-06-22 07:21] VITALS: BP 101/52; PULSE 53; RESP 20; TEMP 36.1; O2SAT 97
--- NOTE | 2024-06-22 09:09 | HO.PM.IMPN ---
Subjective Subjective Date of Service: 06/22/24 Interval History: Seen and evaluated this morning resting in her room reporting recurrent muscle spasms and urine incontinence no other events Physical Exam Vital Signs: Vital Signs: Last Vital Signs Temp 96.9 F 06/22/24 07:21 Pulse 53 06/22/24 07:21 Resp 20 06/22/24 07:21 BP 101/52 L 06/22/24 07:21 Pulse Ox 97 06/22/24 07:21 O2 Del Method Room Air 06/22/24 07:21 BMI result Body Mass Index 34.3 Const: Other: Constitutional : interactive, not in distress Cardiovascular : no JVP, no lower extremity edema Respiratory : bilateral chest movement, not in resp distress Gastrointestinal: soft, lax, Non tender Skin : Warm, Dry Neurological : Alert & oriented , No focal deficit Objective Data Active Medications Acetaminophen (Acetaminophen 325 Mg Tablet) 650 mg PO Q6H PRN PRN Reason: Pain, Mild 1-3,fever,headache Last Admin: 06/17/24 03:30 Dose: 650 mg Documented By: ARASH Baclofen (Baclofen 10 Mg Tablet) 10 mg PO DAILY [facility] Last Admin: 06/21/24 09:19 Dose: 10 mg Documented By: MARLO Baclofen (Baclofen 20 Mg Tablet) 20 mg PO BEDTIME [facility] Last Admin: 06/21/24 21:35 Dose: 20 mg Documented By: KEON Calcium Carbonate (Calcium Carbonate 750 Mg Tab.Chew) 750 mg PO Q4H PRN PRN Reason: Heartburn Chlorhexidine Gluconate (Chlorhexidine Gluc Oral Rinse 15 Ml Mouthwash) 15 ml BUCCAL TID [facility] Last Admin: 06/21/24 21:35 Dose: 15 ml Documented By: KEON Diltiazem HCl (Diltiazem Hcl Cd 120 Mg Cap.Er.Deg) 120 mg PO DAILY [facility]; Protocol Last Admin: 06/21/24 09:19 Dose: 120 mg Documented By: MARLO Enoxaparin Sodium (Enoxaparin Sodium 40 Mg/0.4 Ml Syringe) 40 mg SUBCUT Q24H [facility] Last Admin: 06/21/24 16:56 Dose: 40 mg Documented By: MARLO Ergocalciferol (Ergocalciferol (Vitamin D2) 1,250 Mcg Capsule) 1,250 mcg PO Suarez@0900 [facility] Last Admin: 06/20/24 09:08 Dose: 1,250 mcg Documented By: MARLO Folic Acid (Folic Acid 1 Mg Tablet) 1 mg PO DAILY [facility] Last Admin: 06/21/24 09:19 Dose: 1 mg Documented By: MARLO Magnesium Hydroxide (Milk Of Magnesia 30 Ml Oral.Susp) 30 ml PO DAILY PRN PRN Reason: Constipation Melatonin (Melatonin 3 Mg Tablet) 6 mg PO BEDTIME PRN PRN Reason: Insomnia Last Admin: 06/20/24 22:42 Dose: 6 mg Documented By: CHEN Metoprolol Tartrate (Metoprolol Tartrate 12.5 Mg Halftab) 37.5 mg PO BID [facility]; Protocol Last Admin: 06/21/24 21:35 Dose: 37.5 mg Documented By: KEON Multivitamins/Vitamin C (Multivitamin Tablet) 1 tab PO DAILY [facility] Last Admin: 06/21/24 09:18 Dose: 1 tab Documented By: MARLO Nystatin (Nystatin Oral Susp 500,000 Unit/5 Ml Oral.Susp) 500,000 unit PO QID [facility]; Protocol Last Admin: 06/21/24 21:34 Dose: 500,000 unit Documented By: KEON Oxcarbazepine (Oxcarbazepine 150 Mg Tablet) 150 mg PO BID [facility] Last Admin: 06/15/24 21:53 Dose: Not Given Documented By: KRISTEL Non-Admin Reason: Patient Refused Oxcarbazepine (Oxcarbazepine 300 Mg Tablet) 300 mg PO BID [facility] Last Admin: 06/21/24 21:34 Dose: 300 mg Documented By: KEON Oxycodone HCl (Oxycodone Hcl Immed Release 5 Mg Tablet) 5 mg PO Q4H PRN PRN Reason: Pain, Moderate(Pain Scale 4-6) Last Admin: 06/21/24 21:42 Dose: 5 mg Documented By: KEON Prazosin HCl (Prazosin Hcl 1 Mg Capsule) 1 mg PO BEDTIME [facility]; Protocol Last Admin: 06/21/24 21:34 Dose: 1 mg Documented By: KEON Quetiapine Fumarate (Quetiapine Fumarate 100 Mg Tablet) 100 mg PO BEDTIME [facility] Last Admin: 06/21/24 21:35 Dose: 100 mg Documented By: KEON Sertraline HCl (Sertraline Hcl 100 Mg Tablet) 200 mg PO DAILY [facility] Last Admin: 06/21/24 09:18 Dose: 200 mg Documented By: MARLO Sodium Chloride (0.9 % Sodium Chloride Flush 3 Ml Syringe) 3 ml IVFLUSH QSHIFT [facility] Last Admin: 06/21/24 21:35 Dose: 3 ml Documented By: KEON Thiamine HCl (Thiamine Hcl 100 Mg Tablet) 100 mg PO DAILY [facility] Tolterodine Tartrate (Tolterodine Tartrate La 4 Mg Cap.Er.24h) 4 mg PO DAILY [facility] Last Admin: 06/21/24 09:18 Dose: 4 mg Documented By: MARLO Zolpidem Tartrate (Zolpidem Tartrate 5 Mg Tablet) 5 mg PO BEDTIME PRN PRN Reason: Sleep Last Admin: 06/21/24 21:34 Dose: 5 mg Documented By: KEON Labs 06/18/24 06:57 06/20/24 07:49 Assessment and Plan (1) Frontotemporal dementia: Status: Acute Plan 68 yo F with provisional diagnosis of MS on ocrelizumab, HTN, HLD, osteoarthritis, chronic pain syndrome, SVT, dysphagia, GERD, excess EtOH intake, and depression who lives alone and was found be a neighbor down on the floor for an unknown amount of time. Found to have prerenal KATIANA, anion gap acidosis, and mild rhabdomyolysis. # Acute Metabolic encephalopathy 2/2 frontotemporal dementia patient is alert and oriented to self and place but can get easily discracted and confused, keep going in cycles of complaints HCP invoked and SNF placement pending PT consult; will need placement # KATIANA 2/2 Rhabdo resolved follow renals/divalents #HTN better control on current therapy adjust as indicated # Hx EtOH dependence CIWA remains flat during this admission thiamine therapy for wernicke with PO after finishing IV doses # Muscles spasm , overreactive bladder restart Baclofen, Tolterodine, Prazosin and Trileptal Full code Lovenox Requires ongoing hospitalization to monitor renal function and follow response to therapies. We will need safe placement Quality Stroke Does the patient have a stroke diagnosis?: No VTE Prior VTE?: No VTE Risk Level:: Medical - moderate - high VTE Device Contraindication: Treatment Not Indicated VTE Drug Contraindication: N/A - Med Ordered
[2024-06-22] MEDS: Baclofen 10 MG TABLET PO (09:29)
[2024-06-22] MEDS: Metoprolol Tartrate 12.5 MG HALFTAB 37.5 MG PO (09:30)
[2024-06-22] MEDS: oxyCODONE HCl Immed Release 5 MG TABLET PO ×3 (09:30→23:00)
[2024-06-22] MEDS: Multivitamin TABLET 1 TAB PO (09:30)
[2024-06-22] MEDS: dilTIAZem HCL CD 120 MG CAP.ER.DEG PO (09:30)
[2024-06-22] MEDS: Tolterodine Tartrate LA 4 MG CAP.ER.24H PO (09:30)
[2024-06-22] MEDS: Sertraline HCL 100 MG TABLET 200 MG PO (09:31)
[2024-06-22] MEDS: Folic Acid 1 MG TABLET PO (09:31)
[2024-06-22] MEDS: Thiamine HCL 100 MG TABLET PO (09:31)
[2024-06-22] MEDS: Chlorhexidine Gluc Oral Rinse 15 ML MOUTHWASH BUCCAL ×3 (09:31→22:53)
[2024-06-22] MEDS: OXcarbazepine 300 MG TABLET PO ×2 (09:31→22:54)
[2024-06-22] MEDS: Nystatin Oral Susp 500,000 UNIT/5 ML ORAL.SUSP 500000 UNIT PO ×3 (09:31→22:54)
[2024-06-22 10:56] VITALS: BP 103/53; PULSE 57; RESP 18; TEMP 36.6; O2SAT 97
--- NOTE | 2024-06-22 11:52 | MHC.CM.PN ---
EMR REVIEWED, [facility] NOT CONTRACTED W/PT'S [employer], REBEKAH ROBERSON OFFERING HOWEVER RECANTED AND SAID BUILDING WILL REVIEW, [facility], CM WILL CONT TO FOLLOW DC NEEDS.
[2024-06-22] MEDS: LORazepam 0.5 MG TABLET 0.25 MG PO ×2 (15:49→22:59)
[2024-06-22 15:59] VITALS: BP 126/58; PULSE 66; RESP 14; TEMP 36.9; O2SAT 95
[2024-06-22] MEDS: Enoxaparin Sodium 40 MG/0.4 ML SYRINGE SUBCUT (18:22)
[2024-06-22 19:55] VITALS: BP 139/82; PULSE 76; RESP 18; TEMP 36.6; O2SAT 98
[2024-06-22] MEDS: Baclofen 20 MG TABLET PO (22:53)
[2024-06-22] MEDS: QUEtiapine Fumarate 100 MG TABLET PO (22:54)
[2024-06-22] MEDS: 0.9 % Sodium Chloride Flush 3 ML SYRINGE IVFLUSH (22:57)
[2024-06-22] MEDS: Acetaminophen 325 MG TABLET 650 MG PO (23:00)
[2024-06-23] MEDS: Zolpidem Tartrate 5 MG TABLET PO ×2 (00:35→20:51)
[2024-06-23 03:46] VITALS: BP 95/53; PULSE 69; RESP 17; TEMP 36.1; O2SAT 92
[2024-06-23 07:19] LABS: MANUAL DIFF FLAG NO
[2024-06-23 07:42] LABS: Basophils Percent Auto 0.4 % (0-2); Eosinophils Absolute Auto 0.3 X10*3/uL (0.0-0.4); Eosinophils Percent Auto 3.6 % (0-4); Hematocrit 29.8 % (37.0-47.0); Hemoglobin 9.8 g/dl (12.0-16.0); Imm Gran Abs Auto 0.04 X10*3/uL (0.00-0.03); Imm Gran Pct Auto 0.6 % (0.0-0.4); Lymphocytes Absolute Auto 2.6 X10*3/uL (1.2-4.9); Lymphocytes Percent Auto 37.2 % (20-40); Mean Corpuscular HGB Conc 32.9 g/dl (31.0-35.0); Mean Corpuscular Hemoglobin 30.3 pg (27.0-33.0); Mean Corpuscular Volume 92.3 fL (80.0-98.0); Mean Platelet Volume 10.1 fL (9.4-12.3); Monocytes Absolute Auto 0.5 X10*3/uL (0.1-1.2); Monocytes Percent Auto 7.8 % (2-11); Neutrophils Absolute Auto 3.5 x10*3/uL (2.0-8.3); Neutrophils Percent Auto 50.4 % (45-73); Platelet Count 164 X10*3/uL (160-400); Red Blood Count 3.23 X10*6/uL (4.20-5.50)
[2024-06-23 07:53] LABS: Anion Gap 11 (12-20); Blood Urea Nitrogen 22 mg/dL (9-16); Carbon Dioxide 25 mmol/L (22-29); Chloride 109 mmol/L (96-108); Creatinine Clr Calc Pharmacy 70.4; Estimated Glomerular Filt Rate > 60; Glucose Random 117 mg/dL (60-115); Potassium 3.6 mmol/L (3.3-5.1); Sodium 141 mmol/L (135-145)
[2024-06-23 07:56] VITALS: BP 103/54; PULSE 54; RESP 18; TEMP 36.2; O2SAT 97
[2024-06-23] MEDS: Nystatin Oral Susp 500,000 UNIT/5 ML ORAL.SUSP 500000 UNIT PO ×3 (09:51→20:04)
[2024-06-23] MEDS: LORazepam 0.5 MG TABLET 0.25 MG PO ×2 (09:51→17:10)
[2024-06-23] MEDS: oxyCODONE HCl Immed Release 5 MG TABLET PO (09:53)
[2024-06-23] MEDS: Sertraline HCL 100 MG TABLET 200 MG PO (09:54)
[2024-06-23] MEDS: Thiamine HCL 100 MG TABLET PO (09:54)
[2024-06-23] MEDS: Multivitamin TABLET 1 TAB PO (09:54)
[2024-06-23] MEDS: Folic Acid 1 MG TABLET PO (09:54)
[2024-06-23] MEDS: Tolterodine Tartrate LA 4 MG CAP.ER.24H PO (09:54)
[2024-06-23] MEDS: OXcarbazepine 300 MG TABLET PO ×2 (09:54→20:04)
[2024-06-23] MEDS: Chlorhexidine Gluc Oral Rinse 15 ML MOUTHWASH BUCCAL ×3 (09:59→20:04)
[2024-06-23] MEDS: Baclofen 10 MG TABLET PO (09:59)
[2024-06-23 11:32] VITALS: BP 109/50; PULSE 64; RESP 19; TEMP 36.8; O2SAT 94
--- NOTE | 2024-06-23 12:16 | P.PNIM_ITS ---
Subjective Subjective Date of Service: 06/23/24 Interval History: muscle spasms Physical Exam 2 Vital Signs: Vital Signs: Last Vital Signs Temp 98.3 F 06/23/24 11:32 Pulse 64 06/23/24 11:32 Resp 19 06/23/24 11:32 BP 109/50 L 06/23/24 11:32 Pulse Ox 94 06/23/24 11:32 O2 Del Method Room Air 06/23/24 11:32 BMI result Body Mass Index 34.3 Const: Other: Constitutional : interactive, not in distress Cardiovascular : no JVP, no lower extremity edema Respiratory : bilateral chest movement, not in resp distress Gastrointestinal: soft, lax, Non tender Skin : Warm, Dry Neurological : Alert & oriented , No focal deficit Objective Data Active Medications Acetaminophen (Acetaminophen 325 Mg Tablet) 650 mg PO Q6H PRN PRN Reason: Pain, Mild 1-3,fever,headache Last Admin: 06/22/24 23:00 Dose: 650 mg Documented By: JANEL Baclofen (Baclofen 10 Mg Tablet) 10 mg PO DAILY [facility] Last Admin: 06/23/24 09:59 Dose: 10 mg Documented By: DAMIAN Baclofen (Baclofen 20 Mg Tablet) 20 mg PO BEDTIME [facility] Last Admin: 06/22/24 22:53 Dose: 20 mg Documented By: JANEL Calcium Carbonate (Calcium Carbonate 750 Mg Tab.Chew) 750 mg PO Q4H PRN PRN Reason: Heartburn Chlorhexidine Gluconate (Chlorhexidine Gluc Oral Rinse 15 Ml Mouthwash) 15 ml BUCCAL TID [facility] Last Admin: 06/23/24 09:59 Dose: 15 ml Documented By: DAMIAN Diltiazem HCl (Diltiazem Hcl Cd 120 Mg Cap.Er.Deg) 120 mg PO DAILY [facility]; Protocol Last Admin: 06/23/24 10:01 Dose: Not Given Documented By: DAMIAN Non-Admin Reason: HR below 60 Enoxaparin Sodium (Enoxaparin Sodium 40 Mg/0.4 Ml Syringe) 40 mg SUBCUT Q24H [facility] Last Admin: 06/22/24 18:22 Dose: 40 mg Documented By: DAMIAN Ergocalciferol (Ergocalciferol (Vitamin D2) 1,250 Mcg Capsule) 1,250 mcg PO Suarez@0900 [facility] Last Admin: 06/20/24 09:08 Dose: 1,250 mcg Documented By: MARLO Folic Acid (Folic Acid 1 Mg Tablet) 1 mg PO DAILY [facility] Last Admin: 06/23/24 09:54 Dose: 1 mg Documented By: DAMIAN Lorazepam (Lorazepam 0.5 Mg Tablet) 0.25 mg PO Q8H PRN PRN Reason: anxiety/restlessness Last Admin: 06/23/24 09:51 Dose: 0.25 mg Documented By: DAMIAN Magnesium Hydroxide (Milk Of Magnesia 30 Ml Oral.Susp) 30 ml PO DAILY PRN PRN Reason: Constipation Melatonin (Melatonin 3 Mg Tablet) 6 mg PO BEDTIME PRN PRN Reason: Insomnia Last Admin: 06/20/24 22:42 Dose: 6 mg Documented By: CHEN Metoprolol Tartrate (Metoprolol Tartrate 12.5 Mg Halftab) 37.5 mg PO BID [facility]; Protocol Last Admin: 06/23/24 10:01 Dose: Not Given Documented By: DAMIAN Non-Admin Reason: HR below 60 Multivitamins/Vitamin C (Multivitamin Tablet) 1 tab PO DAILY [facility] Last Admin: 06/23/24 09:54 Dose: 1 tab Documented By: DAMIAN Nystatin (Nystatin Oral Susp 500,000 Unit/5 Ml Oral.Susp) 500,000 unit PO QID [facility]; Protocol Last Admin: 06/23/24 09:51 Dose: 500,000 unit Documented By: DAMIAN Oxcarbazepine (Oxcarbazepine 150 Mg Tablet) 150 mg PO BID [facility] Last Admin: 06/15/24 21:53 Dose: Not Given Documented By: KRISTEL Non-Admin Reason: Patient Refused Oxcarbazepine (Oxcarbazepine 300 Mg Tablet) 300 mg PO BID [facility] Last Admin: 06/23/24 09:54 Dose: 300 mg Documented By: DAMIAN Oxycodone HCl (Oxycodone Hcl Immed Release 5 Mg Tablet) 5 mg PO Q4H PRN PRN Reason: Pain, Moderate(Pain Scale 4-6) Last Admin: 06/23/24 09:53 Dose: 5 mg Documented By: DAMIAN Prazosin HCl (Prazosin Hcl 1 Mg Capsule) 1 mg PO BEDTIME [facility]; Protocol Last Admin: 06/21/24 21:34 Dose: 1 mg Documented By: KEON Quetiapine Fumarate (Quetiapine Fumarate 100 Mg Tablet) 100 mg PO BEDTIME [facility] Last Admin: 06/22/24 22:54 Dose: 100 mg Documented By: JANEL Sertraline HCl (Sertraline Hcl 100 Mg Tablet) 200 mg PO DAILY [facility] Last Admin: 06/23/24 09:54 Dose: 200 mg Documented By: DAMIAN Sodium Chloride (0.9 % Sodium Chloride Flush 3 Ml Syringe) 3 ml IVFLUSH QSHIFT [facility] Last Admin: 06/22/24 22:57 Dose: 3 ml Documented By: JANEL Thiamine HCl (Thiamine Hcl 100 Mg Tablet) 100 mg PO DAILY [facility] Last Admin: 06/23/24 09:54 Dose: 100 mg Documented By: DAMIAN Tolterodine Tartrate (Tolterodine Tartrate La 4 Mg Cap.Er.24h) 4 mg PO DAILY [facility] Last Admin: 06/23/24 09:54 Dose: 4 mg Documented By: DAMIAN Zolpidem Tartrate (Zolpidem Tartrate 5 Mg Tablet) 5 mg PO BEDTIME PRN PRN Reason: Sleep Last Admin: 06/23/24 00:35 Dose: 5 mg Documented By: JANEL Comments: requested for sleep Labs 06/23/24 07:05 06/23/24 07:05 Labs: Laboratory Results - last 24 hr 06/23/24 07:05 MCV 92.3 MCH 30.3 MCHC 32.9 RDW 13.0 Plt Count 164 MPV 10.1 Immature Gran % (Auto) 0.6 H Neut % (Auto) 50.4 Lymph % (Auto) 37.2 Braxton % (Auto) 7.8 Eos % (Auto) 3.6 Baso % (Auto) 0.4 Lymph # (Auto) 2.6 Braxton # (Auto) 0.5 Eos # (Auto) 0.3 Baso # (Auto) 0.0 Abs Immat Gran (auto) 0.04 H Absolute Neuts (auto) 3.5 Absolute Nucleated RBC 0.000 Nucleated RBC % (auto) 0.0 Anion Gap 11 L Estim Creat Clear Calc 70.4 Estimated GFR > 60 Random Glucose 117 H Calcium 8.0 L Assessment and Plan (1) Frontotemporal dementia: Status: Acute Plan 68F PMH provisional diagnosis of MS on ocrelizumab, HTN, HLD, osteoarthritis, chronic pain syndrome, SVT, dysphagia, GERD, excess EtOH intake, and depression who lives alone and was found be a neighbor down on the floor for an unknown amount of time. Found to have prerenal KATIANA, anion gap acidosis, and mild rhabdomyolysis. Acute Metabolic encephalopathy 2/2 frontotemporal dementia patient is alert and oriented to self and place but can get easily discracted and confused, keep going in cycles of complaints HCP invoked and SNF placement pending PT consult; will need placement KATIANA 2/2 Rhabdo resolved follow renals/divalents HTN better control on current therapy adjust as indicated Hx EtOH dependence CIWA remains flat during this admission thiamine therapy for wernicke with PO after finishing IV doses Muscles spasm , overreactive bladder restart Baclofen, Tolterodine, Prazosin and Trileptal Full code dvt prophylaxis - Lovenox Quality Stroke Does the patient have a stroke diagnosis?: No VTE Prior VTE?: No VTE Risk Level:: Medical - moderate - high VTE Device Contraindication: Treatment Not Indicated VTE Drug Contraindication: N/A - Med Ordered
[2024-06-23 15:40] VITALS: BP 118/58; PULSE 66; RESP 19; TEMP 36.7; O2SAT 96
[2024-06-23] MEDS: Enoxaparin Sodium 40 MG/0.4 ML SYRINGE SUBCUT (17:11)
[2024-06-23] MEDS: 0.9 % Sodium Chloride Flush 3 ML SYRINGE IVFLUSH ×2 (17:18→20:06)
[2024-06-23 19:43] VITALS: BP 115/56; PULSE 65; RESP 16; TEMP 36.2; O2SAT 95
[2024-06-23] MEDS: Prazosin HCL 1 MG CAPSULE PO (20:04)
[2024-06-23] MEDS: Baclofen 20 MG TABLET PO (20:04)
[2024-06-23] MEDS: QUEtiapine Fumarate 100 MG TABLET PO (20:04)
[2024-06-23 23:53] VITALS: BP 118/58; PULSE 60; RESP 18; TEMP 36.7; O2SAT 94
[2024-06-24 04:00] VITALS: BP 114/63; PULSE 57; RESP 18; TEMP 37; O2SAT 93
[2024-06-24 07:51] VITALS: BP 120/55; PULSE 86; RESP 19; TEMP 36.3; O2SAT 96
[2024-06-24] MEDS: Metoprolol Tartrate 12.5 MG HALFTAB 37.5 MG PO ×2 (08:06→20:21)
[2024-06-24] MEDS: Folic Acid 1 MG TABLET PO (08:06)
[2024-06-24] MEDS: Multivitamin TABLET 1 TAB PO (08:06)
[2024-06-24] MEDS: dilTIAZem HCL CD 120 MG CAP.ER.DEG PO (08:06)
[2024-06-24] MEDS: OXcarbazepine 300 MG TABLET PO ×2 (08:06→20:20)
[2024-06-24] MEDS: Chlorhexidine Gluc Oral Rinse 15 ML MOUTHWASH BUCCAL ×3 (08:06→20:21)
[2024-06-24] MEDS: Baclofen 10 MG TABLET PO (08:06)
[2024-06-24] MEDS: Tolterodine Tartrate LA 4 MG CAP.ER.24H PO (08:06)
[2024-06-24] MEDS: Nystatin Oral Susp 500,000 UNIT/5 ML ORAL.SUSP 500000 UNIT PO ×4 (08:06→20:21)
[2024-06-24] MEDS: Sertraline HCL 100 MG TABLET 200 MG PO (08:06)
[2024-06-24] MEDS: Thiamine HCL 100 MG TABLET PO (08:06)
[2024-06-24] MEDS: LORazepam 0.5 MG TABLET 0.25 MG PO ×2 (08:16→17:44)
[2024-06-24] MEDS: 0.9 % Sodium Chloride Flush 3 ML SYRINGE IVFLUSH ×2 (08:17→17:35)
--- NOTE | 2024-06-24 09:01 | P.PNIM_ITS ---
Subjective Subjective Date of Service: 06/24/24 Interval History: muscle spasms Physical Exam 2 Vital Signs: Vital Signs: Last Vital Signs Temp 97.4 F 06/24/24 07:51 Pulse 86 06/24/24 07:51 Resp 19 06/24/24 07:51 BP 120/55 L 06/24/24 07:51 Pulse Ox 96 06/24/24 07:51 O2 Del Method Room Air 06/24/24 07:51 BMI result Body Mass Index 34.3 Const: Other: Constitutional : interactive, not in distress Cardiovascular : no JVP, no lower extremity edema Respiratory : bilateral chest movement, not in resp distress Gastrointestinal: soft, lax, Non tender Skin : Warm, Dry Neurological : Alert & oriented , No focal deficit Objective Data Active Medications Acetaminophen (Acetaminophen 325 Mg Tablet) 650 mg PO Q6H PRN PRN Reason: Pain, Mild 1-3,fever,headache Last Admin: 06/22/24 23:00 Dose: 650 mg Documented By: JANEL Baclofen (Baclofen 10 Mg Tablet) 10 mg PO DAILY [facility] Last Admin: 06/24/24 08:06 Dose: 10 mg Documented By: NISREEN Baclofen (Baclofen 20 Mg Tablet) 20 mg PO BEDTIME [facility] Last Admin: 06/23/24 20:04 Dose: 20 mg Documented By: SCARLET Calcium Carbonate (Calcium Carbonate 750 Mg Tab.Chew) 750 mg PO Q4H PRN PRN Reason: Heartburn Chlorhexidine Gluconate (Chlorhexidine Gluc Oral Rinse 15 Ml Mouthwash) 15 ml BUCCAL TID [facility] Last Admin: 06/24/24 08:06 Dose: 15 ml Documented By: NISREEN Diltiazem HCl (Diltiazem Hcl Cd 120 Mg Cap.Er.Deg) 120 mg PO DAILY [facility]; Protocol Last Admin: 06/24/24 08:06 Dose: 120 mg Documented By: NISREEN Enoxaparin Sodium (Enoxaparin Sodium 40 Mg/0.4 Ml Syringe) 40 mg SUBCUT Q24H [facility] Last Admin: 06/23/24 17:11 Dose: 40 mg Documented By: FOSTEKPelon Ergocalciferol (Ergocalciferol (Vitamin D2) 1,250 Mcg Capsule) 1,250 mcg PO Suarez@0900 [facility] Last Admin: 06/20/24 09:08 Dose: 1,250 mcg Documented By: MARLO Folic Acid (Folic Acid 1 Mg Tablet) 1 mg PO DAILY [facility] Last Admin: 06/24/24 08:06 Dose: 1 mg Documented By: NISREEN Lorazepam (Lorazepam 0.5 Mg Tablet) 0.25 mg PO Q8H PRN PRN Reason: anxiety/restlessness Last Admin: 06/24/24 08:16 Dose: 0.25 mg Documented By: NISREEN Magnesium Hydroxide (Milk Of Magnesia 30 Ml Oral.Susp) 30 ml PO DAILY PRN PRN Reason: Constipation Melatonin (Melatonin 3 Mg Tablet) 6 mg PO BEDTIME PRN PRN Reason: Insomnia Last Admin: 06/20/24 22:42 Dose: 6 mg Documented By: CHEN Metoprolol Tartrate (Metoprolol Tartrate 12.5 Mg Halftab) 37.5 mg PO BID [facility]; Protocol Last Admin: 06/24/24 08:06 Dose: 37.5 mg Documented By: NISREEN Multivitamins/Vitamin C (Multivitamin Tablet) 1 tab PO DAILY [facility] Last Admin: 06/24/24 08:06 Dose: 1 tab Documented By: NISREEN Nystatin (Nystatin Oral Susp 500,000 Unit/5 Ml Oral.Susp) 500,000 unit PO QID [facility]; Protocol Last Admin: 06/24/24 08:06 Dose: 500,000 unit Documented By: NISREEN Oxcarbazepine (Oxcarbazepine 150 Mg Tablet) 150 mg PO BID [facility] Last Admin: 06/15/24 21:53 Dose: Not Given Documented By: KRISTEL Non-Admin Reason: Patient Refused Oxcarbazepine (Oxcarbazepine 300 Mg Tablet) 300 mg PO BID [facility] Last Admin: 06/24/24 08:06 Dose: 300 mg Documented By: NISREEN Prazosin HCl (Prazosin Hcl 1 Mg Capsule) 1 mg PO BEDTIME [facility]; Protocol Last Admin: 06/23/24 20:04 Dose: 1 mg Documented By: SCARLET Quetiapine Fumarate (Quetiapine Fumarate 100 Mg Tablet) 100 mg PO BEDTIME [facility] Last Admin: 06/23/24 20:04 Dose: 100 mg Documented By: SCARLET Sertraline HCl (Sertraline Hcl 100 Mg Tablet) 200 mg PO DAILY [facility] Last Admin: 06/24/24 08:06 Dose: 200 mg Documented By: NISREEN Sodium Chloride (0.9 % Sodium Chloride Flush 3 Ml Syringe) 3 ml IVFLUSH QSHIFT [facility] Last Admin: 06/24/24 08:17 Dose: 3 ml Documented By: NISREEN Thiamine HCl (Thiamine Hcl 100 Mg Tablet) 100 mg PO DAILY [facility] Last Admin: 06/24/24 08:06 Dose: 100 mg Documented By: NISREEN Tolterodine Tartrate (Tolterodine Tartrate La 4 Mg Cap.Er.24h) 4 mg PO DAILY [facility] Last Admin: 06/24/24 08:06 Dose: 4 mg Documented By: NISREEN Zolpidem Tartrate (Zolpidem Tartrate 5 Mg Tablet) 5 mg PO BEDTIME PRN PRN Reason: Sleep Last Admin: 06/23/24 20:51 Dose: 5 mg Documented By: GUSHMAZ Labs 06/23/24 07:05 06/23/24 07:05 Assessment and Plan (1) Frontotemporal dementia: Status: Acute Plan 68F PMH provisional diagnosis of MS on ocrelizumab, HTN, HLD, osteoarthritis, chronic pain syndrome, SVT, dysphagia, GERD, excess EtOH intake, and depression who lives alone and was found be a neighbor down on the floor for an unknown amount of time. Found to have prerenal KATIANA, anion gap acidosis, and mild rhabdomyolysis. Acute Metabolic encephalopathy 2/2 frontotemporal dementia patient is alert and oriented to self and place but can get easily discracted and confused, keep going in cycles of complaints HCP invoked and SNF placement pending PT consult; will need placement KATIANA 2/2 Rhabdo resolved HTN better control on current therapy adjust as indicated Hx EtOH dependence CIWA remains flat during this admission thiamine therapy for wernicke Muscles spasm , overreactive bladder restart Baclofen, Tolterodine, Prazosin and Trileptal Full code dvt prophylaxis - Lovenox reason for continued hospitalization:placement Quality Stroke Does the patient have a stroke diagnosis?: No VTE Prior VTE?: No VTE Risk Level:: Medical - moderate - high VTE Device Contraindication: Treatment Not Indicated VTE Drug Contraindication: N/A - Med Ordered
--- NOTE | 2024-06-24 11:24 | MHC.CM.PN ---
EMR REVIEWED, CM CONTACTED PT'S NEPHEW ILYA AT [facility] ON FILE, ILYA REPORTS HE KNOWS NOTHING ABOUT PT'S FINANCES OR STATE OF PT'S HOME. ILYA REPORTS HIS SON ILYA CAMARGO LIVES ON THE SECOND FL APT OF PT'S MULTI FAMILY HOWEVER CM SHOULD CONTACT ILYA SON NISH HE WAS AT HOUSE AND MET W[facility]. REFERRAL HAD BEEN PLACED TO FINANCIAL SERVICES HOWEVER THEY HAD CALLED ILYA AND LEFT A MESSAGE AND ILYA NEVER RETURNED CALL. CM DID ATTEMPT TO CONTACT NISH [phone] AT 11:05AM HOWEVER NO ANSWER AND DETAILED MESSAGE LEFT. CM CONTACTED ILYA CAMARGO WHO IS ALTERNATE HCP AND ILYA REPORTS HE THOUGHT PT WAS COMING HOME, ILYA CAMARGO REPORTS HE DOES NOT HAVE ACCESS TO PT'S BANKING STATEMENTS HOWEVER WOULD BE HAPPY TO PICK THEM IF PT CALLED BANK AND REQUESTED THEM, ILYA CAMARGO DOES NOT SEEM TO HAVE CONCERNS ABOUT LIVING CONDITIONS. CM WILL WAIT FOR PT'S GREAT NEPHEW NISH TO RETURN CALL. CM TO DISCUSS POSSIBLE NEED FOR CONSERVATOR W/CM DIRECTOR.
[2024-06-24 12:00] VITALS: BP 114/57; PULSE 62; RESP 19; TEMP 36.2; O2SAT 98
--- NOTE | 2024-06-24 13:42 | HO.HSGERICON ---
History of Present Illness Data of Consult Service Date: 06/24/24 Requesting physician: Steven Solorio Primary Care Provider: Unknown Physician HPI Reason for consult: Reassessment of mental status. Capacity to take informed decisions The patient is a 68-year-old female, single, with no children, living with her family with a past history of multiple sclerosis, chronic kidney disease osteoarthrosis, SVT, depression and other medical comorbidities who was initially admitted before [place] for altered mental status in the context of probably alcohol use disorder. The patient on admission was severely delirious. Please see the the consult note of June 16. At that moment the patient was nonverbal, in clear delirium unable to take any informed decisions and her healthcare proxy was invoked. The present consult was asked to reassess her mental status and reassess if she has capacity to take decisions. On interview, the patient was pleasant, cooperative, with good eye contact, very talkative, she was able to explain that she has multiple sclerosis and she was requesting the restarting his Ativan and opioids, she was scared that she could have a UTI. I explained her that she was severely delirious and now she is much better. She was requesting to restart also her medications for multiple sclerosis. I spoke and discussed the case with Dr. Shaffer and apparently her mental status has cleared in the last hours, even though according to the primary team, she is confused at times. At the moment of the interview the patient was alert and oriented in time place and person. She was fully aware that she was confused and delirious a few days ago. She adamantly denies suicidal or homicidal thoughts and she is able to verbalize her needs. Review of Systems Review of Systems: Yes all other systems are reviewed and are negative [facility] Medical History Urinary incontinence Anxiety Anxiety COVID-19 Osteoarthritis of right knee Essential hypertension SVT (supraventricular tachycardia) Depression History of kidney problems Paroxysmal SVT (supraventricular tachycardia) History of confusion Urgency of micturition Memory difficulties Arthritis History of dysphagia Multiple sclerosis GERD (gastroesophageal reflux disease) Anxiety Hypertension Pain syndrome, chronic Disc degeneration, lumbar 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, bilateral Family History Mother Diabetes Kidney failure Father AAA (abdominal aortic aneurysm, ruptured) Family/Other Mental health disorder Substance use disorder Surgical History Hx of hysterectomy History of surgery on left wrist Deficient knowledge of leg surgery History of rotator cuff surgery History of left knee surgery History of myomectomy History of appendectomy Social History Household Members: Unknown / Unable to assess Housing: House Are you a primary physician primary care sports medicine to a significant other at home: No Unable to assess alcohol history related to: Unable to respond Alcohol intake: current Alcohol intake frequency: holidays/special occasions only Comment: Tolerable right knee pain per pt. Patient Tobacco Use Status: Never used Tobacco e-Cigarette/Vaping Use: Never Used Second Hand Smoke Exposure: No Use of substances other than those prescribed or required for medical reasons: Unable to respond Currently Displaying Signs/Symptoms of Drug Intoxication Withdrawal: No Advance Directives: Yes Advance Directives on File: Yes Advance Directives Date on File: 05/16/21 Do you have a plan to hurt others: No Plan Nutrition Risks: Dental problems Patient : No : No Poor oral hygiene: Yes service: No Current occupational status: retired and disabled Cognitive needs: Yes (walker) Hearing needs: No Vision needs: Yes (glasses) Meds Allergies Allergy/AdvReac Type Severity Reaction Status Date / Time prochlorperazine [Compazine] Allergy Severe Dystonic Verified 06/15/24 12:12 Reaction cobalt [COBALT] Allergy Intermediate RASH Verified 06/15/24 12:12 hydrocodone [Vicodin] Allergy Intermediate Nausea and Verified 06/15/24 12:12 Vomiting nickel [NICKEL] Allergy Intermediate RASH Verified 06/15/24 12:12 ondansetron [Zofran] Allergy Intermediate Hives Verified 06/15/24 12:12 morphine AdvReac Intermediate Nausea and Verified 06/15/24 12:12 Vomiting Active Medications: Current Medications Acetaminophen (Acetaminophen 325 Mg Tablet) 650 mg PO Q6H PRN PRN Reason: Pain, Mild 1-3,fever,headache Last Admin: 06/22/24 23:00 Dose: 650 mg Baclofen (Baclofen 10 Mg Tablet) 10 mg PO DAILY [facility] Last Admin: 06/24/24 08:06 Dose: 10 mg Baclofen (Baclofen 20 Mg Tablet) 20 mg PO BEDTIME [facility] Last Admin: 06/23/24 20:04 Dose: 20 mg Calcium Carbonate (Calcium Carbonate 750 Mg Tab.Chew) 750 mg PO Q4H PRN PRN Reason: Heartburn Chlorhexidine Gluconate (Chlorhexidine Gluc Oral Rinse 15 Ml Mouthwash) 15 ml BUCCAL TID [facility] Last Admin: 06/24/24 08:06 Dose: 15 ml Diltiazem HCl (Diltiazem Hcl Cd 120 Mg Cap.Er.Deg) 120 mg PO DAILY [facility]; Protocol Last Admin: 06/24/24 08:06 Dose: 120 mg Enoxaparin Sodium (Enoxaparin Sodium 40 Mg/0.4 Ml Syringe) 40 mg SUBCUT Q24H [facility] Last Admin: 06/23/24 17:11 Dose: 40 mg Ergocalciferol (Ergocalciferol (Vitamin D2) 1,250 Mcg Capsule) 1,250 mcg PO Suarez@0900 [facility] Last Admin: 06/20/24 09:08 Dose: 1,250 mcg Folic Acid (Folic Acid 1 Mg Tablet) 1 mg PO DAILY [facility] Last Admin: 06/24/24 08:06 Dose: 1 mg Lorazepam (Lorazepam 0.5 Mg Tablet) 0.25 mg PO Q8H PRN PRN Reason: anxiety/restlessness Last Admin: 06/24/24 08:16 Dose: 0.25 mg Magnesium Hydroxide (Milk Of Magnesia 30 Ml Oral.Susp) 30 ml PO DAILY PRN PRN Reason: Constipation Melatonin (Melatonin 3 Mg Tablet) 6 mg PO BEDTIME PRN PRN Reason: Insomnia Last Admin: 06/20/24 22:42 Dose: 6 mg Metoprolol Tartrate (Metoprolol Tartrate 12.5 Mg Halftab) 37.5 mg PO BID [facility]; Protocol Last Admin: 06/24/24 08:06 Dose: 37.5 mg Multivitamins/Vitamin C (Multivitamin Tablet) 1 tab PO DAILY [facility] Last Admin: 06/24/24 08:06 Dose: 1 tab Nystatin (Nystatin Oral Susp 500,000 Unit/5 Ml Oral.Susp) 500,000 unit PO QID [facility]; Protocol Last Admin: 06/24/24 08:06 Dose: 500,000 unit Oxcarbazepine (Oxcarbazepine 150 Mg Tablet) 150 mg PO BID [facility] Last Admin: 06/15/24 21:53 Dose: Not Given Oxcarbazepine (Oxcarbazepine 300 Mg Tablet) 300 mg PO BID [facility] Last Admin: 06/24/24 08:06 Dose: 300 mg Prazosin HCl (Prazosin Hcl 1 Mg Capsule) 1 mg PO BEDTIME [facility]; Protocol Last Admin: 06/23/24 20:04 Dose: 1 mg Quetiapine Fumarate (Quetiapine Fumarate 100 Mg Tablet) 100 mg PO BEDTIME [facility] Last Admin: 06/23/24 20:04 Dose: 100 mg Sertraline HCl (Sertraline Hcl 100 Mg Tablet) 200 mg PO DAILY [facility] Last Admin: 06/24/24 08:06 Dose: 200 mg Sodium Chloride (0.9 % Sodium Chloride Flush 3 Ml Syringe) 3 ml IVFLUSH QSHIFT [facility] Last Admin: 06/24/24 08:17 Dose: 3 ml Thiamine HCl (Thiamine Hcl 100 Mg Tablet) 100 mg PO DAILY [facility] Last Admin: 06/24/24 08:06 Dose: 100 mg Tolterodine Tartrate (Tolterodine Tartrate La 4 Mg Cap.Er.24h) 4 mg PO DAILY [facility] Last Admin: 06/24/24 08:06 Dose: 4 mg Home Medications ?Medication ?Instructions ?Recorded ?Confirmed ?Last Taken ?Type ergocalciferol (vitamin D2) 1,250 1,250 mcg PO QWEEK 06/05/20 06/15/24 Unknown History mcg (50,000 unit) capsule lorazepam 0.5 mg tablet 0.5 mg PO BID PRN Anxiety 06/05/20 06/15/24 10/27/20 05:30 History zolpidem 10 mg tablet 10 mg PO BEDTIME PRN Sleep 06/05/20 06/15/24 Unknown History baclofen 10 mg tablet 10 mg PO DAILY 07/25/23 06/15/24 Unknown History ocrelizumab 30 mg/mL intravenous 600 mg IV [id number] 07/25/23 10/15/23 Unknown History solution (Ocrevus) oxcarbazepine 300 mg tablet 300 mg PO BID 07/25/23 06/15/24 Unknown History solifenacin 10 mg tablet (Vesicare) 10 mg PO DAILY 07/25/23 06/15/24 Unknown History sertraline 100 mg tablet 200 mg PO DAILY 10/09/23 06/15/24 Unknown History quetiapine 100 mg tablet 100 mg PO BEDTIME 12/31/23 06/15/24 Unknown History prazosin 1 mg capsule 1 mg PO BEDTIME 04/15/24 06/15/24 Unknown History baclofen 10 mg tablet 20 mg PO BEDTIME 06/15/24 06/15/24 Unknown History oxcarbazepine 150 mg tablet 150 mg PO BID 06/15/24 06/15/24 Unknown History Results Labs 06/23/24 07:05 06/23/24 07:05 Assessment and Plan (1) Multiple sclerosis: Status: Acute (2) CKD (chronic kidney disease) stage 2, GFR 60-89 ml/min: Status: Acute (3) Hypertension: Qualifiers: Hypertension type: primary hypertension Qualified Code(s): I10 - Essential (primary) hypertension Status: Acute (4) Dysuria: Status: Acute (5) SVT (supraventricular tachycardia): Status: Acute (6) Delirium: Status: Acute Plan The patient is an elderly female with a past history of multiple sclerosis, hypertension, SVT, chronic kidney disease and other medical comorbidities who was brought to the hospital in severe delirium unable to verbalize her needs grossly disorganized. The patient had been treated and at this moment a consult was asked to reassess her mental status. At this moment the patient is alert and oriented and cooperative, able to understand and verbalize her needs. Plan 1. At this moment the patient has capacity to take informed decisions, it seems that her delirium is in clear resolution. 2. Continue with psychiatric medications. 3. Reassessment as demand. Total time managing care of this patient today: 30 minutes. Physical Exam Vital Signs: Last Vital Signs Temp 97.2 F 06/24/24 12:00 Pulse 62 06/24/24 12:00 Resp 19 06/24/24 12:00 BP 114/57 L 06/24/24 12:00 Pulse Ox 98 06/24/24 12:00 O2 Del Method Room Air 06/24/24 12:00 BMI result Body Mass Index 34.3 Neuro Cranial nerves: Yes CN's II-XII intact bilaterally Psych Appearance: grossly normal (On hospital gowns) Mental Status: mental status grossly normal Speech and movement: Normal speech and movement present Affect: Anxious affect present Attitude: cooperative Thought process: Circumstantial thought process present Thought content: Ideas of reference present (thought content) Insight: Fair insight present (Psych) Judgement: Fair judgement present (Psych)
[2024-06-24 15:11] VITALS: BP 121/76; PULSE 65; RESP 18; TEMP 36.4; O2SAT 97
--- NOTE | 2024-06-24 15:33 | PC.NURSE ---
Patient alert and oriented but forgetful intermittently. VSS, afebrile, on room air, lungs diminished, no respiratory distress noted. C/O spasms and aching to mind abdomen- chronic for patient. Patient ambulating to bathroom or commode one assist with walker. Calm and cooperative with all care.
--- NOTE | 2024-06-24 16:50 | MHC.CM.PN ---
EMR REVIEWED, PT SEEN BY NIDA WHO REPORT PT NOW HAS CAPACITY, SINCE PT'S NEPHEW DOES NOT WANT TO BE PT'S HCP CM MET W/PT AND GREAT NEPHEW EVAN WHO HAS MANY CONCERNS PT HAS $100,000 IN BACK TAXES AND IS $5-6,000 DOLLARS BEHIND IN BILLS. EVAN REPORTED THAT PT HAS A 30 DAY NOTICE TO MAKE SEVERAL REPAIRS ON HOME HOWEVER IS NOT OR NOT ABLE TO COMPREHEND. PT DID COMPLETE A NEW HCP AND REPORTED THAT HER NEPHEW SAID HE DID NOT WANT TO BE HER HCP AND SHE WOULD LIKE HER [facility] NEPHEWS ON HER HCP AND NISH SHEETS [phone] IS PRIMARY, EVAN SHEETS [phone] AND ILYA [phone] ARE BOTH LISTED UNDER ALTERNATE PER PT REQUEST, COPY UPLOADED TO [facility] AND PLACED IN CHART. CURRENTLY PT IS REFUSING TO GO TO [facility].
[2024-06-24] MEDS: Enoxaparin Sodium 40 MG/0.4 ML SYRINGE SUBCUT (17:35)
[2024-06-24 19:11] VITALS: BP 158/71; PULSE 68; RESP 18; TEMP 36.6; O2SAT 96
[2024-06-24] MEDS: Prazosin HCL 1 MG CAPSULE PO (20:20)
[2024-06-24] MEDS: Baclofen 20 MG TABLET PO (20:20)
[2024-06-24] MEDS: Acetaminophen 325 MG TABLET 650 MG PO (20:21)
[2024-06-24] MEDS: Melatonin 3 MG TABLET 6 MG PO (20:21)
[2024-06-24] MEDS: QUEtiapine Fumarate 100 MG TABLET PO (20:21)
[2024-06-24 23:50] VITALS: BP 117/55; PULSE 59; RESP 18; TEMP 36.4; O2SAT 95
[2024-06-25] VITALS (7 sets, daily range): BP systolic 102–172; BP diastolic 53–81; PULSE 58–70; RESP 16–20; TEMP 36.1–36.6; O2SAT 92–100
--- NOTE | 2024-06-25 | ECG_ITS ---
Test Reason : epigastric pain Blood Pressure : / mmHG Vent. Rate : 061 BPM Atrial Rate : 061 BPM P-R Int : 238 ms QRS Dur : 088 ms QT Int : 444 ms P-R-T Axes : 078 007 057 degrees QTc Int : 446 ms Sinus rhythm with 1st degree A-V block Otherwise normal ECG When compared with ECG of 15-JUN-2024 12:32, WI interval has increased Vent. rate has decreased BY 31 BPM T wave inversion no longer evident in Lateral leads Referred By: Steven Solorio Electronically Signed By:GIOVANY LANGSTON MD
[2024-06-25] MEDS: 0.9 % Sodium Chloride Flush 3 ML SYRINGE IVFLUSH ×4 (00:27→21:16)
[2024-06-25] MEDS: Zolpidem Tartrate 5 MG TABLET PO ×2 (04:11→22:31)
--- NOTE | 2024-06-25 05:08 | PC.NURSE ---
Assumed care of pt at 23:00. See clinical documentation for assessments.
[2024-06-25] MEDS: Sertraline HCL 100 MG TABLET 200 MG PO (09:25)
[2024-06-25] MEDS: OXcarbazepine 300 MG TABLET PO ×2 (09:25→21:09)
[2024-06-25] MEDS: Baclofen 10 MG TABLET PO (09:25)
[2024-06-25] MEDS: Tolterodine Tartrate LA 4 MG CAP.ER.24H PO (09:25)
[2024-06-25] MEDS: Multivitamin TABLET 1 TAB PO (09:25)
[2024-06-25] MEDS: Thiamine HCL 100 MG TABLET PO (09:25)
[2024-06-25] MEDS: Folic Acid 1 MG TABLET PO (09:25)
[2024-06-25] MEDS: Nystatin Oral Susp 500,000 UNIT/5 ML ORAL.SUSP 500000 UNIT PO ×4 (09:26→22:24)
[2024-06-25] MEDS: LORazepam 0.5 MG TABLET 0.25 MG PO ×2 (09:56→21:16)
[2024-06-25] MEDS: Chlorhexidine Gluc Oral Rinse 15 ML MOUTHWASH BUCCAL ×3 (10:18→21:19)
--- NOTE | 2024-06-25 10:49 | HO.PM.IMPN ---
Subjective Subjective Date of Service: 06/25/24 Interval History: muscle spasms Physical Exam Vital Signs: Vital Signs: Last Vital Signs Temp 97.2 F 06/25/24 07:23 Pulse 58 06/25/24 07:23 Resp 16 06/25/24 07:23 BP 102/53 L 06/25/24 07:23 Pulse Ox 94 06/25/24 07:23 O2 Del Method Room Air 06/25/24 07:23 BMI result Body Mass Index 34.3 Const: Other: Constitutional : interactive, not in distress Cardiovascular : no JVP, no lower extremity edema Respiratory : bilateral chest movement, not in resp distress Gastrointestinal: soft, lax, Non tender Skin : Warm, Dry Neurological : Alert & oriented , No focal deficit Objective Data Active Medications Acetaminophen (Acetaminophen 325 Mg Tablet) 650 mg PO Q6H PRN PRN Reason: Pain, Mild 1-3,fever,headache Last Admin: 06/24/24 20:21 Dose: 650 mg Documented By: KEON Baclofen (Baclofen 10 Mg Tablet) 10 mg PO DAILY [facility] Last Admin: 06/25/24 09:25 Dose: 10 mg Documented By: BOLIVAR Baclofen (Baclofen 20 Mg Tablet) 20 mg PO BEDTIME [facility] Last Admin: 06/24/24 20:20 Dose: 20 mg Documented By: KEON Calcium Carbonate (Calcium Carbonate 750 Mg Tab.Chew) 750 mg PO Q4H PRN PRN Reason: Heartburn Chlorhexidine Gluconate (Chlorhexidine Gluc Oral Rinse 15 Ml Mouthwash) 15 ml BUCCAL TID [facility] Last Admin: 06/25/24 10:18 Dose: 15 ml Documented By: BOLIVAR Diltiazem HCl (Diltiazem Hcl Cd 120 Mg Cap.Er.Deg) 120 mg PO DAILY [facility]; Protocol Last Admin: 06/25/24 09:25 Dose: Not Given Documented By: BOLIVAR Non-Admin Reason: Decreased Blood Pressure Enoxaparin Sodium (Enoxaparin Sodium 40 Mg/0.4 Ml Syringe) 40 mg SUBCUT Q24H [facility] Last Admin: 06/24/24 17:35 Dose: 40 mg Documented By: BOLIVAR Ergocalciferol (Ergocalciferol (Vitamin D2) 1,250 Mcg Capsule) 1,250 mcg PO Suarez@0900 [facility] Last Admin: 06/20/24 09:08 Dose: 1,250 mcg Documented By: MARLO Folic Acid (Folic Acid 1 Mg Tablet) 1 mg PO DAILY [facility] Last Admin: 06/25/24 09:25 Dose: 1 mg Documented By: BOLIVAR Lorazepam (Lorazepam 0.5 Mg Tablet) 0.25 mg PO Q8H PRN PRN Reason: anxiety/restlessness Last Admin: 06/25/24 09:56 Dose: 0.25 mg Documented By: BOLIVAR Magnesium Hydroxide (Milk Of Magnesia 30 Ml Oral.Susp) 30 ml PO DAILY PRN PRN Reason: Constipation Melatonin (Melatonin 3 Mg Tablet) 6 mg PO BEDTIME PRN PRN Reason: Insomnia Last Admin: 06/24/24 20:21 Dose: 6 mg Documented By: KEON Metoprolol Tartrate (Metoprolol Tartrate 12.5 Mg Halftab) 37.5 mg PO BID [facility]; Protocol Last Admin: 06/25/24 09:26 Dose: Not Given Documented By: BOLIVAR Non-Admin Reason: Decreased Blood Pressure Multivitamins/Vitamin C (Multivitamin Tablet) 1 tab PO DAILY [facility] Last Admin: 06/25/24 09:25 Dose: 1 tab Documented By: BOLIVAR Nystatin (Nystatin Oral Susp 500,000 Unit/5 Ml Oral.Susp) 500,000 unit PO QID [facility]; Protocol Last Admin: 06/25/24 09:26 Dose: 500,000 unit Documented By: BOLIVAR Oxcarbazepine (Oxcarbazepine 150 Mg Tablet) 150 mg PO BID [facility] Last Admin: 06/15/24 21:53 Dose: Not Given Documented By: KRISTEL Non-Admin Reason: Patient Refused Oxcarbazepine (Oxcarbazepine 300 Mg Tablet) 300 mg PO BID [facility] Last Admin: 06/25/24 09:25 Dose: 300 mg Documented By: BOLIVAR Oxycodone HCl (Oxycodone Hcl Immed Release 5 Mg Tablet) 2.5 mg PO BID [facility] Prazosin HCl (Prazosin Hcl 1 Mg Capsule) 1 mg PO BEDTIME [facility]; Protocol Last Admin: 06/24/24 20:20 Dose: 1 mg Documented By: KEON Quetiapine Fumarate (Quetiapine Fumarate 100 Mg Tablet) 100 mg PO BEDTIME [facility] Last Admin: 06/24/24 20:21 Dose: 100 mg Documented By: KEON Sertraline HCl (Sertraline Hcl 100 Mg Tablet) 200 mg PO DAILY [facility] Last Admin: 06/25/24 09:25 Dose: 200 mg Documented By: BOLIVAR Sodium Chloride (0.9 % Sodium Chloride Flush 3 Ml Syringe) 3 ml IVFLUSH QSHIFT [facility] Last Admin: 06/25/24 09:25 Dose: 3 ml Documented By: BOLIVAR Thiamine HCl (Thiamine Hcl 100 Mg Tablet) 100 mg PO DAILY [facility] Last Admin: 06/25/24 09:25 Dose: 100 mg Documented By: BOLIVAR Tolterodine Tartrate (Tolterodine Tartrate La 4 Mg Cap.Er.24h) 4 mg PO DAILY [facility] Last Admin: 06/25/24 09:25 Dose: 4 mg Documented By: BOLIVAR Tramadol HCl (Tramadol Hcl 50 Mg Tablet) 25 mg PO Q4H PRN PRN Reason: Pain, Severe (Pain Scale 7-10) Zolpidem Tartrate (Zolpidem Tartrate 5 Mg Tablet) 5 mg PO BEDTIME PRN PRN Reason: Insomnia Last Admin: 06/25/24 04:11 Dose: 5 mg Documented By: [facility] Labs 06/23/24 07:05 06/23/24 07:05 Assessment and Plan (1) Frontotemporal dementia: Status: Acute Plan 68F PMH provisional diagnosis of MS on ocrelizumab, HTN, HLD, osteoarthritis, chronic pain syndrome, SVT, dysphagia, GERD, excess EtOH intake, and depression who lives alone and was found be a neighbor down on the floor for an unknown amount of time. Found to have prerenal KATIANA, anion gap acidosis, and mild rhabdomyolysis. Acute Metabolic encephalopathy 2/2 frontotemporal dementia patient is alert and oriented to self and place but can get easily discracted and confused, keep going in cycles of complaints reconsulted psych 06/24/24 - appears to have improved, now has capacity however, on specific decision to refuse rehab she is tangental and not directly answering question, will request reeval OT - MOCA PT consult; will need placement KATIANA 2/2 Rhabdo resolved HTN better control on current therapy adjust as indicated Hx EtOH dependence CIWA remains flat during this admission thiamine therapy for wernicke Muscles spasm , overreactive bladder restarted Baclofen, Tolterodine, Prazosin and Trileptal, lower dose oxy Full code dvt prophylaxis - Lovenox reason for continued hospitalization:placement Quality Stroke Does the patient have a stroke diagnosis?: No VTE Prior VTE?: No VTE Risk Level:: Medical - moderate - high VTE Device Contraindication: Treatment Not Indicated VTE Drug Contraindication: N/A - Med Ordered
[2024-06-25] MEDS: methylPREDNISolone Sod Succ 125 MG/2 ML VIAL IVPUSH (15:22)
--- NOTE | 2024-06-25 16:06 | MHC.CM.PN ---
This CM met with pt and her great nephew/HCP Ross present at bedside. Pt still has multiple health concerns, hospitalist aware and has addressed, but pt is now agreeable to going to [facility] after trying steroids for her pain, and checking more labs. Another psych eval for capacity is also pending. [facility] is interested, would need insurance auth.
[2024-06-25 17:14] LABS: Troponin-I High Sensitivity 3.3 ng/L (<3.5-17.0)
[2024-06-25] MEDS: Enoxaparin Sodium 40 MG/0.4 ML SYRINGE SUBCUT (18:23)
[2024-06-25] MEDS: traMADoL HCL 50 MG TABLET 25 MG PO (18:34)
[2024-06-25] MEDS: Metoprolol Tartrate 12.5 MG HALFTAB 37.5 MG PO (21:08)
[2024-06-25] MEDS: QUEtiapine Fumarate 100 MG TABLET PO (21:09)
[2024-06-25] MEDS: oxyCODONE HCl Immed Release 5 MG TABLET 2.5 MG PO (21:09)
[2024-06-25] MEDS: Baclofen 20 MG TABLET PO (21:09)
[2024-06-25] MEDS: Prazosin HCL 1 MG CAPSULE PO (21:11)
[2024-06-26] MEDS: Melatonin 3 MG TABLET 6 MG PO (02:34)
[2024-06-26 03:25] VITALS: BP 161/84; PULSE 64; RESP 18; TEMP 36.2; O2SAT 94
[2024-06-26 07:26] VITALS: BP 113/57; PULSE 60; RESP 16; TEMP 36.8; O2SAT 97
[2024-06-26 09:06] VITALS: BP 121/58; PULSE 61; O2SAT 98
[2024-06-26] MEDS: Multivitamin TABLET 1 TAB PO (09:07)
[2024-06-26] MEDS: Baclofen 10 MG TABLET PO (09:07)
[2024-06-26] MEDS: Thiamine HCL 100 MG TABLET PO (09:07)
[2024-06-26] MEDS: dilTIAZem HCL CD 120 MG CAP.ER.DEG PO (09:07)
[2024-06-26] MEDS: oxyCODONE HCl Immed Release 5 MG TABLET 2.5 MG PO ×2 (09:08→21:03)
[2024-06-26] MEDS: OXcarbazepine 300 MG TABLET PO ×2 (09:08→21:02)
[2024-06-26] MEDS: Nystatin Oral Susp 500,000 UNIT/5 ML ORAL.SUSP 500000 UNIT PO ×4 (09:08→21:01)
[2024-06-26] MEDS: Chlorhexidine Gluc Oral Rinse 15 ML MOUTHWASH BUCCAL ×3 (09:08→21:01)
[2024-06-26] MEDS: Tolterodine Tartrate LA 4 MG CAP.ER.24H PO (09:08)
[2024-06-26] MEDS: Metoprolol Tartrate 12.5 MG HALFTAB 37.5 MG PO ×2 (09:08→21:01)
[2024-06-26] MEDS: Folic Acid 1 MG TABLET PO (09:08)
[2024-06-26] MEDS: Sertraline HCL 100 MG TABLET 200 MG PO (09:08)
[2024-06-26] MEDS: LORazepam 0.5 MG TABLET 0.25 MG PO ×2 (09:08→21:02)
--- NOTE | 2024-06-26 09:22 | P.PNIM_ITS ---
Subjective Subjective Date of Service: 06/26/24 Interval History: more oprimistic today, though feels that steroids did not help Physical Exam 2 Vital Signs: Vital Signs: Last Vital Signs Temp 98.2 F 06/26/24 07:26 Pulse 61 06/26/24 09:06 Resp 16 06/26/24 07:26 BP 121/58 L 06/26/24 09:06 Pulse Ox 98 06/26/24 09:06 O2 Del Method Room Air 06/26/24 09:06 BMI result Body Mass Index 34.3 Const: Other: Constitutional : interactive, not in distress Cardiovascular : no JVP, no lower extremity edema Respiratory : bilateral chest movement, not in resp distress Gastrointestinal: soft, lax, Non tender Skin : Warm, Dry Neurological : Alert & oriented , No focal deficit Objective Data Active Medications Acetaminophen (Acetaminophen 325 Mg Tablet) 650 mg PO Q6H PRN PRN Reason: Pain, Mild 1-3,fever,headache Last Admin: 06/24/24 20:21 Dose: 650 mg Documented By: KEON Baclofen (Baclofen 10 Mg Tablet) 10 mg PO DAILY [facility] Last Admin: 06/26/24 09:07 Dose: 10 mg Documented By: SIRI Baclofen (Baclofen 20 Mg Tablet) 20 mg PO BEDTIME [facility] Last Admin: 06/25/24 21:09 Dose: 20 mg Documented By: DEVORARISSherif Calcium Carbonate (Calcium Carbonate 750 Mg Tab.Chew) 750 mg PO Q4H PRN PRN Reason: Heartburn Chlorhexidine Gluconate (Chlorhexidine Gluc Oral Rinse 15 Ml Mouthwash) 15 ml BUCCAL TID [facility] Last Admin: 06/26/24 09:08 Dose: 15 ml Documented By: SIRI Diltiazem HCl (Diltiazem Hcl Cd 120 Mg Cap.Er.Deg) 120 mg PO DAILY [facility]; Protocol Last Admin: 06/26/24 09:07 Dose: 120 mg Documented By: SIRI Enoxaparin Sodium (Enoxaparin Sodium 40 Mg/0.4 Ml Syringe) 40 mg SUBCUT Q24H [facility] Last Admin: 06/25/24 18:23 Dose: 40 mg Documented By: TR Ergocalciferol (Ergocalciferol (Vitamin D2) 1,250 Mcg Capsule) 1,250 mcg PO Suarez@0900 [facility] Last Admin: 06/20/24 09:08 Dose: 1,250 mcg Documented By: MARLO Folic Acid (Folic Acid 1 Mg Tablet) 1 mg PO DAILY [facility] Last Admin: 06/26/24 09:08 Dose: 1 mg Documented By: SIRI Lidocaine/Diphenhydr/Alum/Mg/Simeth (Mag&Al/Sim/Diphenhyd/Lidocaine 10 Ml Oral.Susp) 10 ml PO Q4H PRN; Protocol PRN Reason: mouth pain Lorazepam (Lorazepam 0.5 Mg Tablet) 0.25 mg PO Q8H PRN PRN Reason: anxiety/restlessness Last Admin: 06/26/24 09:08 Dose: 0.25 mg Documented By: SIRI Magnesium Hydroxide (Milk Of Magnesia 30 Ml Oral.Susp) 30 ml PO DAILY PRN PRN Reason: Constipation Melatonin (Melatonin 3 Mg Tablet) 6 mg PO BEDTIME PRN PRN Reason: Insomnia Last Admin: 06/26/24 02:34 Dose: 6 mg Documented By: DEYANIRA Metoprolol Tartrate (Metoprolol Tartrate 12.5 Mg Halftab) 37.5 mg PO BID [facility]; Protocol Last Admin: 06/26/24 09:08 Dose: 37.5 mg Documented By: SIRI Multivitamins/Vitamin C (Multivitamin Tablet) 1 tab PO DAILY [facility] Last Admin: 06/26/24 09:07 Dose: 1 tab Documented By: SIRI Nystatin (Nystatin Oral Susp 500,000 Unit/5 Ml Oral.Susp) 500,000 unit PO QID [facility]; Protocol Last Admin: 06/26/24 09:08 Dose: 500,000 unit Documented By: SIRI Oxcarbazepine (Oxcarbazepine 150 Mg Tablet) 150 mg PO BID [facility] Last Admin: 06/15/24 21:53 Dose: Not Given Documented By: KRISTEL Non-Admin Reason: Patient Refused Oxcarbazepine (Oxcarbazepine 300 Mg Tablet) 300 mg PO BID [facility] Last Admin: 06/26/24 09:08 Dose: 300 mg Documented By: SIRI Oxycodone HCl (Oxycodone Hcl Immed Release 5 Mg Tablet) 2.5 mg PO BID [facility] Last Admin: 06/26/24 09:08 Dose: 2.5 mg Documented By: SIRI Prazosin HCl (Prazosin Hcl 1 Mg Capsule) 1 mg PO BEDTIME [facility]; Protocol Last Admin: 06/25/24 21:11 Dose: 1 mg Documented By: DEYANIRA Quetiapine Fumarate (Quetiapine Fumarate 100 Mg Tablet) 100 mg PO BEDTIME [facility] Last Admin: 06/25/24 21:09 Dose: 100 mg Documented By: DEYANIRA Sertraline HCl (Sertraline Hcl 100 Mg Tablet) 200 mg PO DAILY [facility] Last Admin: 06/26/24 09:08 Dose: 200 mg Documented By: SIRI Sodium Chloride (0.9 % Sodium Chloride Flush 3 Ml Syringe) 3 ml IVFLUSH QSHIFT [facility] Last Admin: 06/26/24 09:17 Dose: Not Given Documented By: SIRI Non-Admin Reason: Previously Administered Thiamine HCl (Thiamine Hcl 100 Mg Tablet) 100 mg PO DAILY [facility] Last Admin: 06/26/24 09:07 Dose: 100 mg Documented By: SIRI Tolterodine Tartrate (Tolterodine Tartrate La 4 Mg Cap.Er.24h) 4 mg PO DAILY [facility] Last Admin: 06/26/24 09:08 Dose: 4 mg Documented By: SRII Tramadol HCl (Tramadol Hcl 50 Mg Tablet) 25 mg PO Q4H PRN PRN Reason: Pain, Severe (Pain Scale 7-10) Last Admin: 06/25/24 18:34 Dose: 25 mg Documented By: TR Zolpidem Tartrate (Zolpidem Tartrate 5 Mg Tablet) 5 mg PO BEDTIME PRN PRN Reason: Insomnia Last Admin: 06/25/24 22:31 Dose: 5 mg Documented By: DEYANIRA Labs 06/23/24 07:05 06/23/24 07:05 Labs: Laboratory Results - last 24 hr 06/25/24 16:30 Troponin I High Sens 3.3 D Assessment and Plan (1) Frontotemporal dementia: Status: Acute Plan 68F PMH provisional diagnosis of MS on ocrelizumab, HTN, HLD, osteoarthritis, chronic pain syndrome, SVT, dysphagia, GERD, excess EtOH intake, and depression who lives alone and was found be a neighbor down on the floor for an unknown amount of time. Found to have prerenal KATIANA, anion gap acidosis, and mild rhabdomyolysis. Acute Metabolic encephalopathy 2/2 frontotemporal dementia patient is alert and oriented to self and place but can get easily discracted and confused, keep going in cycles of complaints reseen by psych 06/24/24 and 06/25/24 - appears to have improved, now has capacity, even for discharge disposition, though currently agreeable to [facility] OT - [facility]OCA - per psych may be falsely low do to recent delerium PT recommending rehab KATIANA 2/2 Rhabdo resolved HTN better control on current therapy adjust as indicated Hx EtOH dependence CIWA remains flat during this admission thiamine therapy for wernicke Muscles spasm , overreactive bladder restarted Baclofen, Tolterodine, Prazosin and Trileptal, lower dose oxy Full code dvt prophylaxis - Lovenox reason for continued hospitalization:placement Quality Stroke Does the patient have a stroke diagnosis?: No VTE Prior VTE?: No VTE Risk Level:: Medical - moderate - high VTE Device Contraindication: Treatment Not Indicated VTE Drug Contraindication: N/A - Med Ordered
--- NOTE | 2024-06-26 09:35 | PC.NURSE ---
Patient calm and cooperative with care, meals, and medications. No events reported overnight. Patient addressing needs appropriately.
--- NOTE | 2024-06-26 09:45 | MHC.CM.PN ---
Addendum entered by Alba Montano RN 06/26/24 11:58: Patient has accepted a bed at [facility], who will submit for auth on Wednesday 06/28. Original Note: Per MD, patient medically cleared for dc and is agreaable to [facility]. No bed offers at this time. Referral expanded w/ updates. CM will continue to follow.
[2024-06-26] MEDS: methylPREDNISolone Sod Succ 40 MG/ML VIAL IVPUSH (10:27)
[2024-06-26] MEDS: 0.9 % Sodium Chloride Flush 3 ML SYRINGE IVFLUSH ×2 (14:42→21:01)
[2024-06-26 14:59] VITALS: BP 113/57; PULSE 60; RESP 16; TEMP 36.4; O2SAT 94
[2024-06-26] MEDS: Enoxaparin Sodium 40 MG/0.4 ML SYRINGE SUBCUT (17:42)
[2024-06-26 19:45] VITALS: BP 130/59; PULSE 57; RESP 18; TEMP 36.3; O2SAT 95
[2024-06-26] MEDS: QUEtiapine Fumarate 100 MG TABLET PO (21:01)
[2024-06-26] MEDS: Baclofen 20 MG TABLET PO (21:02)
[2024-06-26] MEDS: Prazosin HCL 1 MG CAPSULE PO (21:02)
[2024-06-26 23:21] VITALS: BP 115/58; PULSE 56; RESP 16; TEMP 36.4; O2SAT 94
[2024-06-27] MEDS: Melatonin 3 MG TABLET 6 MG PO (01:21)
[2024-06-27 03:01] VITALS: BP 100/59; PULSE 52; RESP 16; TEMP 36.2; O2SAT 96
[2024-06-27 07:58] VITALS: BP 100/51; PULSE 53; RESP 16; TEMP 36.5; O2SAT 97
--- NOTE | 2024-06-27 08:15 | P.PNIM_ITS ---
Subjective Subjective Date of Service: 06/27/24 Interval History: Reports insomnia, staff noted that patient's left wall Physical Exam 2 Vital Signs: Vital Signs: Last Vital Signs Temp 97.7 F 06/27/24 07:58 Pulse 53 06/27/24 07:58 Resp 16 06/27/24 07:58 BP 100/51 L 06/27/24 07:58 Pulse Ox 97 06/27/24 07:58 O2 Del Method Room Air 06/27/24 07:58 BMI result Body Mass Index 34.3 Const: Other: Constitutional : interactive, not in distress Cardiovascular : no JVP, no lower extremity edema Respiratory : bilateral chest movement, not in resp distress Gastrointestinal: soft, lax, Non tender Skin : Warm, Dry Neurological : Alert & oriented , No focal deficit Objective Data Active Medications Acetaminophen (Acetaminophen 325 Mg Tablet) 650 mg PO Q6H PRN PRN Reason: Pain, Mild 1-3,fever,headache Last Admin: 06/24/24 20:21 Dose: 650 mg Documented By: KEON Baclofen (Baclofen 10 Mg Tablet) 10 mg PO DAILY [facility] Last Admin: 06/26/24 09:07 Dose: 10 mg Documented By: SIRI Baclofen (Baclofen 20 Mg Tablet) 20 mg PO BEDTIME [facility] Last Admin: 06/26/24 21:02 Dose: 20 mg Documented By: DEYANIRA Calcium Carbonate (Calcium Carbonate 750 Mg Tab.Chew) 750 mg PO Q4H PRN PRN Reason: Heartburn Chlorhexidine Gluconate (Chlorhexidine Gluc Oral Rinse 15 Ml Mouthwash) 15 ml BUCCAL TID [facility] Last Admin: 06/26/24 21:01 Dose: 15 ml Documented By: DEYANIRA Diltiazem HCl (Diltiazem Hcl Cd 120 Mg Cap.Er.Deg) 120 mg PO DAILY [facility]; Protocol Last Admin: 06/26/24 09:07 Dose: 120 mg Documented By: SIRI Enoxaparin Sodium (Enoxaparin Sodium 40 Mg/0.4 Ml Syringe) 40 mg SUBCUT Q24H [facility] Last Admin: 06/26/24 17:42 Dose: 40 mg Documented By: SIRI Ergocalciferol (Ergocalciferol (Vitamin D2) 1,250 Mcg Capsule) 1,250 mcg PO Suarez@0900 [facility] Last Admin: 06/20/24 09:08 Dose: 1,250 mcg Documented By: MARLO Folic Acid (Folic Acid 1 Mg Tablet) 1 mg PO DAILY [facility] Last Admin: 06/26/24 09:08 Dose: 1 mg Documented By: SIRI Lidocaine/Diphenhydr/Alum/Mg/Simeth (Mag&Al/Sim/Diphenhyd/Lidocaine 10 Ml Oral.Susp) 10 ml PO Q4H PRN; Protocol PRN Reason: mouth pain Lorazepam (Lorazepam 0.5 Mg Tablet) 0.25 mg PO Q8H PRN PRN Reason: anxiety/restlessness Last Admin: 06/26/24 21:02 Dose: 0.25 mg Documented By: DEYANIRA Magnesium Hydroxide (Milk Of Magnesia 30 Ml Oral.Susp) 30 ml PO DAILY PRN PRN Reason: Constipation Melatonin (Melatonin 3 Mg Tablet) 6 mg PO BEDTIME PRN PRN Reason: Insomnia Last Admin: 06/27/24 01:21 Dose: 6 mg Documented By: DEYAINRA Metoprolol Tartrate (Metoprolol Tartrate 12.5 Mg Halftab) 37.5 mg PO BID [facility]; Protocol Last Admin: 06/26/24 21:01 Dose: 37.5 mg Documented By: DEYANIRA Multivitamins/Vitamin C (Multivitamin Tablet) 1 tab PO DAILY [facility] Last Admin: 06/26/24 09:07 Dose: 1 tab Documented By: SIRI Nystatin (Nystatin Oral Susp 500,000 Unit/5 Ml Oral.Susp) 500,000 unit PO QID [facility]; Protocol Last Admin: 06/26/24 21:01 Dose: 500,000 unit Documented By: DEYANIRA Oxcarbazepine (Oxcarbazepine 150 Mg Tablet) 150 mg PO BID [facility] Last Admin: 06/15/24 21:53 Dose: Not Given Documented By: KRISTEL Non-Admin Reason: Patient Refused Oxcarbazepine (Oxcarbazepine 300 Mg Tablet) 300 mg PO BID [facility] Last Admin: 06/26/24 21:02 Dose: 300 mg Documented By: DEYANIRA Oxycodone HCl (Oxycodone Hcl Immed Release 5 Mg Tablet) 2.5 mg PO BID [facility] Last Admin: 06/26/24 21:03 Dose: 2.5 mg Documented By: DEYANIRA Prazosin HCl (Prazosin Hcl 1 Mg Capsule) 1 mg PO BEDTIME [facility]; Protocol Last Admin: 06/26/24 21:02 Dose: 1 mg Documented By: DEYANIRA Quetiapine Fumarate (Quetiapine Fumarate 100 Mg Tablet) 100 mg PO BEDTIME [facility] Last Admin: 06/26/24 21:01 Dose: 100 mg Documented By: DEYANIRA Sertraline HCl (Sertraline Hcl 100 Mg Tablet) 200 mg PO DAILY [facility] Last Admin: 06/26/24 09:08 Dose: 200 mg Documented By: SRII Sodium Chloride (0.9 % Sodium Chloride Flush 3 Ml Syringe) 3 ml IVFLUSH QSHIFT [facility] Last Admin: 06/26/24 21:01 Dose: 3 ml Documented By: DEYANIRA Thiamine HCl (Thiamine Hcl 100 Mg Tablet) 100 mg PO DAILY [facility] Last Admin: 06/26/24 09:07 Dose: 100 mg Documented By: SIRI Tolterodine Tartrate (Tolterodine Tartrate La 4 Mg Cap.Er.24h) 4 mg PO DAILY [facility] Last Admin: 06/26/24 09:08 Dose: 4 mg Documented By: SIRI Tramadol HCl (Tramadol Hcl 50 Mg Tablet) 25 mg PO Q4H PRN PRN Reason: Pain, Severe (Pain Scale 7-10) Last Admin: 06/25/24 18:34 Dose: 25 mg Documented By: TR Zolpidem Tartrate (Zolpidem Tartrate 5 Mg Tablet) 5 mg PO BEDTIME PRN PRN Reason: Insomnia Last Admin: 06/25/24 22:31 Dose: 5 mg Documented By: DEYANIRA Labs 06/23/24 07:05 06/23/24 07:05 Assessment and Plan (1) Frontotemporal dementia: Status: Acute Plan 68F PMH provisional diagnosis of MS on ocrelizumab, HTN, HLD, osteoarthritis, chronic pain syndrome, SVT, dysphagia, GERD, excess EtOH intake, and depression who lives alone and was found be a neighbor down on the floor for an unknown amount of time. Found to have prerenal KATIANA, anion gap acidosis, and mild rhabdomyolysis. Acute Metabolic encephalopathy 2/2 frontotemporal dementia patient is alert and oriented to self and place but can get easily discracted and confused, keep going in cycles of complaints reseen by psych 06/24/24 and 06/25/24 - appears to have improved, now has capacity, even for discharge disposition, though currently agreeable to [facility] OT - [facility] - per psych may be falsely low do to recent delerium PT recommending rehab KATIANA 2/2 Rhabdo resolved HTN better control on current therapy adjust as indicated Hx EtOH dependence CIWA remains flat during this admission thiamine therapy for wernicke Muscles spasm , overreactive bladder restarted Baclofen, Tolterodine, Prazosin and Trileptal, lower dose oxy Full code dvt prophylaxis - Lovenox reason for continued hospitalization:placement Quality Stroke Does the patient have a stroke diagnosis?: No VTE Prior VTE?: No VTE Risk Level:: Medical - moderate - high VTE Device Contraindication: Treatment Not Indicated VTE Drug Contraindication: N/A - Med Ordered
[2024-06-27] MEDS: Chlorhexidine Gluc Oral Rinse 15 ML MOUTHWASH BUCCAL ×3 (08:39→22:43)
[2024-06-27] MEDS: Nystatin Oral Susp 500,000 UNIT/5 ML ORAL.SUSP 500000 UNIT PO ×4 (08:39→22:43)
[2024-06-27] MEDS: methylPREDNISolone Sod Succ 40 MG/ML VIAL IVPUSH (08:39)
[2024-06-27] MEDS: OXcarbazepine 300 MG TABLET PO ×2 (08:40→22:42)
[2024-06-27] MEDS: Thiamine HCL 100 MG TABLET PO (08:40)
[2024-06-27] MEDS: Multivitamin TABLET 1 TAB PO (08:40)
[2024-06-27] MEDS: oxyCODONE HCl Immed Release 5 MG TABLET 2.5 MG PO ×2 (08:40→22:41)
[2024-06-27] MEDS: Baclofen 10 MG TABLET PO (08:40)
[2024-06-27] MEDS: Sertraline HCL 100 MG TABLET 200 MG PO (08:40)
[2024-06-27] MEDS: Folic Acid 1 MG TABLET PO (08:40)
[2024-06-27] MEDS: Tolterodine Tartrate LA 4 MG CAP.ER.24H PO (08:40)
[2024-06-27] MEDS: 0.9 % Sodium Chloride Flush 3 ML SYRINGE IVFLUSH ×2 (08:41→22:44)
[2024-06-27] MEDS: LORazepam 0.5 MG TABLET 0.25 MG PO ×2 (08:41→22:48)
[2024-06-27 10:28] VITALS: BP 98/53; PULSE 57
[2024-06-27] MEDS: Ergocalciferol (Vitamin D2) 1,250 MCG CAPSULE 1250 MCG PO (11:18)
[2024-06-27 16:00] VITALS: BP 119/57; PULSE 61; RESP 16; TEMP 36.8; O2SAT 94
[2024-06-27] MEDS: Enoxaparin Sodium 40 MG/0.4 ML SYRINGE SUBCUT (17:27)
[2024-06-27 19:20] VITALS: BP 142/68; PULSE 69; RESP 17; TEMP 36.5; O2SAT 96
[2024-06-27] MEDS: Baclofen 20 MG TABLET PO (22:41)
[2024-06-27] MEDS: Prazosin HCL 1 MG CAPSULE PO (22:41)
[2024-06-27] MEDS: Metoprolol Tartrate 12.5 MG HALFTAB 37.5 MG PO (22:42)
[2024-06-27] MEDS: QUEtiapine Fumarate 100 MG TABLET PO (22:42)
[2024-06-28 04:00] VITALS: BP 91/52; PULSE 58; RESP 16; TEMP 36.4; O2SAT 95
[2024-06-28 08:00] VITALS: BP 111/60; PULSE 57; RESP 18; TEMP 36.2; O2SAT 98
--- NOTE | 2024-06-28 09:07 | P.DS_ITS ---
DS: Providers Provider Date of Service: 06/29/24 <Stveen Solorio MD - Last Filed: 06/29/24 09:35> 06/30/24 <Jason Landers MD - Last Filed: 06/30/24 11:30> Date of admission: 06/15/24 17:39 <Steven Solorio MD - Last Filed: 06/29/24 09:35> Date of discharge: 06/29/24 <Steven Solorio MD - Last Filed: 06/29/24 09:35> 06/30/24 <Jason Landers MD - Last Filed: 06/30/24 11:30> Primary care physician: Drew Marc MD <Steven Solorio MD - Last Filed: 06/29/24 09:35> Consults: 06/16/24 07:54 Consult to Psychiatry Routine Consulting Provider: [facility] Psych Covering Reason for consultation: AMS 06/16/24 09:01 Consult to Neurology Routine Consulting Provider: [facility] Reason for consultation: encephalopathy ?wernicke/Korsakoff 06/24/24 11:03 Consult to Psychiatry Routine Consulting Provider: [facility] Psych Covering Reason for consultation: follow up: ?HCP invocation, ?improvement since previous eval <Steven Solorio MD - Last Filed: 06/29/24 09:35> DS: Diagnosis Discharge Diagnosis (1) Frontotemporal dementia: Status: Acute <Steven Solorio MD - Last Filed: 06/29/24 09:35> (2) Delirium: Status: Acute <Steven Solorio MD - Last Filed: 06/29/24 09:35> (3) Metabolic acidosis: Status: Acute <Steven Solorio MD - Last Filed: 06/29/24 09:35> (4) Rhabdomyolysis: Status: Acute <Steven Solorio MD - Last Filed: 06/29/24 09:35> (5) KATIANA (acute kidney injury): Status: Acute <Steven Solorio MD - Last Filed: 06/29/24 09:35> (6) Altered mental status: Status: Acute <Steven Solorio MD - Last Filed: 06/29/24 09:35> DS: Summary Hospital Course Hospital Course: from initial hpi: 68-year-old female with a PMH significant for?HTN, HLD, MS, osteoarthritis, chronic pain syndrome, hx of paroxysmal SVT, dysphagia, GERD, and depression who presents to the ED after being found with AMS and on the floor by a neighbor with an unknown down time. Pt is acutely encephalopathic?at time of interview and exam, rambling constantly and nonsensically. Patient apparently thinks there is a ?black Internet? and a ?red Internet? that is constantly scanning her, and she is currently in ?anaphylactic shock to the main Internet?. Patient also appears to be experiencing visual hallucinations. HPI is thus obtained from family who was contacted via phone. Spoke primarily to patient's grand nephew Jeffry ([phone]) who the patient called last night. Patient appeared altered during that conversation and apparently ?rambled? for an hour and a half, jumping from topic to topic. Patient apparently had not slept in at least 48 hours. Family notes patient's mental health has deteriorated rather significantly recently. Patient apparently is almost always confused at baseline and has been having difficulties comprehending instructions or the severity of situations. Nephew notes [facility] is currently threatening to take patient's house away from her. Family is also worried about patient's dependence on alcohol, especially when used in conjunction with her home medications. Family believes she drinks daily, though they are unclear how much or how often. In the ED pt was tachypneic up to 26, hypertensive up to 209/110, and with elevated HR up to 99. Labs were significant for leukocytosis 18.2, anion gap 26, BUN 30, creatinine 1.51 (baseline around 1.00), AST 84, CPK 2, and initial troponin 30.6. Stable H&H. No significant electrolyte abnormalities. Ammonia WNL at 52. Lactic acid WNL at 1.8. UA negative for UTI. Tested negative for flu, COVID, RSV. CT of head negative for acute intracranial pa thology. CT of cervical spine negative for acute fracture or subluxation. CT of chest, abdomen, and pelvis negative for acute abnormality. Did find increased thyroid nodules. EKG demonstrated normal sinus rhythm of 92 with QTc [address] and T-wave abnormalities. Pt was treated with IVF, labetalol, and Zosyn. Pt will be admitted to the hospital for treatment and further evaluation of KATIANA and rhabdomyolysis in the setting of acute encephalopathy with fall at home with unknown downtime. hospital course: Patient was admitted for acute toxic metabolic encephalopathy complicated by acute kidney injury, rhabdomyolysis, acute metabolic acidosis. Exact etiology unclear, differential includes polypharmacy, hypertensive encephalopathy, alcohol/benzo withdrawal, and exacerbation of frontotemporal dementia. Patient was given supportive care, labs normalized, mental status significantly improved. Was followed by Psychiatry and eventually determined to have capacity to make most medical decisions by the time of discharge. Some dose adjustments have been made to patient's chronic medications, please see med rec. For hypertension, patient's blood pressure was actually on lower side after initial presentation and diltiazem has been discontinued. Blood pressure should be monitored as outpatient and medication adjusted as needed. For history of alcohol dependence patient was started on thiamine, folic acid, multivitamin did not show any signs of withdrawal. For nonspecific arthralgias patient was given empiric steroids with improvement. will be discharged on 2 more days of prednisone. For multiple sclerosis patient did not have any acute flare, ocrelizumab has been on hold, was continued on baclofen for muscle spasms. Prior to discharge was seen by physical therapy recommended short-term rehab which was denied by her insurance. she agreed to go home with physical therapy and services. <Steven Solorio MD - Last Filed: 06/29/24 09:35> Time Attestation Discharge Coordination Time (in mins): 33 <Steven Solorio MD - Last Filed: 06/29/24 09:35> Quality: Safe Use of Opioids Does Pt have an Active Cancer Diagnosis on the Problem List?: No <Steven Solorio MD - Last Filed: 06/29/24 09:35> Quality: Stroke Does the patient have a stroke diagnosis?: No <Steven Solorio MD - Last Filed: 06/29/24 09:35> Physical Exam Vital Signs: Vital Signs: Last Vital Signs Temp 97.2 F 06/28/24 08:00 Pulse 57 06/28/24 08:00 Resp 18 06/28/24 08:00 BP 111/60 06/28/24 08:00 Pulse Ox 98 06/28/24 08:00 O2 Del Method Room Air 06/28/24 08:00 BMI result Body Mass Index 34.3 <Steven Solorio MD - Last Filed: 06/29/24 09:35> Const: Other: Constitutional : interactive, not in distress Cardiovascular : no JVP, no lower extremity edema Respiratory : bilateral chest movement, not in resp distress Gastrointestinal: soft, lax, Non tender Skin : Warm, Dry Neurological : Alert & oriented , No focal deficit <Steven Solorio MD - Last Filed: 06/29/24 09:35> DS: Data Imaging MRI - head: Radiologist's impression: ITS Impressions Cervical Spine CT 06/15/24 12:10 IMPRESSION: Multilevel advanced degenerative change. No fracture or acute findings. Fleischner guidelines were followed. Electronically signed by: Juve Tidwell MD 06/15/2024 01:41 PM EST RP Head CT 06/15/24 12:38 IMPRESSION: No acute intracranial pathology. Electronically signed by: Juve Tidwell MD 06/15/2024 01:35 PM EST RP Abdomen/Pelvis CT 06/15/24 13:57 IMPRESSION: 1. No acute abnormality within the chest, abdomen, or pelvis. 2. There is a 0.5 cm fissural right lower lobe nodule. According to the UPDATED 2017 Fleischner Society recommendations, the advised follow-up imaging for solid nodules < 6 mm is: LOW RISK PATIENT: No routine follow-up. HIGH RISK PATIENT: Optional CT at 12 months. 3. Bilateral heterogeneous thyroid nodules. The right thyroid nodule measures 2 x 1.9 cm, increased from 1.8 cm in 2020. The left thyroid nodule measures 1.3 x 0.8 cm, increased from subcentimeter in 2020. Recommend nonemergent dedicated thyroid ultrasound for further assessment. Electronically signed by: Emily Vasquez DO 06/15/2024 04:51 PM EST RP Chest CT 06/15/24 14:18 IMPRESSION: 1. No acute abnormality within the chest, abdomen, or pelvis. 2. There is a 0.5 cm fissural right lower lobe nodule. According to the UPDATED 2017 Fleischner Society recommendations, the advised follow-up imaging for solid nodules < 6 mm is: LOW RISK PATIENT: No routine follow-up. HIGH RISK PATIENT: Optional CT at 12 months. 3. Bilateral heterogeneous thyroid nodules. The right thyroid nodule measures 2 x 1.9 cm, increased from 1.8 cm in 2020. The left thyroid nodule measures 1.3 x 0.8 cm, increased from subcentimeter in 2020. Recommend nonemergent dedicated thyroid ultrasound for further assessment. Electronically signed by: Emily Vasquez DO 06/15/2024 04:51 PM [facility] <Jason Landers MD - Last Filed: 06/30/24 11:30> Discharge Plan Discharge Anticipated Discharge Date/Time: 06/28/24 09:04 <Steven Solorio MD - Last Filed: 06/29/24 09:35> Patient Disposition: Home Health Service <Steven Solorio MD - Last Filed: 06/29/24 09:35> Discharge Diagnosis: katiana, metabolic acidosis <Steven Solorio MD - Last Filed: 06/29/24 09:35> katiana, metabolic acidosis <Jason Landers MD - Last Filed: 06/30/24 11:30> Referrals: Matthew WIN [Outside] - 3-5 Days ([place] [facility] will call you to schedule appointments) Drew Marc MD [Primary Care Provider] - 1 Week <Steven Solorio MD - Last Filed: 06/29/24 09:35> Discharge Medications: New multivitamin [Daily-Jose F] Tablet 1 tab PO DAILY Qty: 0 0RF lorazepam 0.5 mg Tablet 0.25 mg PO Q8H PRN (Reason: Anxiety/Restlessness) Qty: 20 0RF baclofen 10 mg Tablet 10 mg PO BEDTIME Qty: 0 0RF folic acid 1 mg Tablet 1 mg PO DAILY Qty: 0 0RF zolpidem 5 mg Tablet 5 mg PO BEDTIME PRN (Reason: Insomnia) Qty: 10 0RF oxycodone 5 mg Tablet 2.5 mg PO BID Qty: 20 0RF Rx Instructions: Partial Fill upon patient request. metoprolol tartrate 25 mg Tablet 25 mg PO BID Qty: 0 0RF Protocol: Hold for SBP/HR < HOLD for SBP < : 90 HOLD for HR < : 60 thiamine mononitrate (vit B1) 100 mg Tablet 100 mg PO DAILY Qty: 0 0RF prednisone 20 mg tablet 40 mg PO DAILY 2 Days Qty: 4 0RF Continued sertraline 100 mg tablet 200 mg PO DAILY quetiapine 100 mg tablet 100 mg PO BEDTIME ergocalciferol (vitamin D2) 1,250 mcg (50,000 unit) capsule 1,250 mcg PO QWEEK oxcarbazepine 300 mg tablet 300 mg PO BID Rx Instructions: TAKE 1 TABLET BY MOUTH TWICE A DAY WITH 150 MG TABLET FOR TOTAL DOSE = 450 MG. baclofen 10 mg tablet 10 mg PO DAILY solifenacin [Vesicare] 10 mg tablet 10 mg PO DAILY Discontinued diltiazem HCl 120 mg capsule,extended release 24hr 120 mg PO DAILY Qty: 90 3RF oxycodone 5 mg tablet 5 mg PO BID 30 Days Qty: 60 0RF Rx Instructions: covering for Dr. Marc oxcarbazepine 150 mg tablet 150 mg PO BID Rx Instructions: TAKE 1 TABLET BY MOUTH TWICE A DAY WITH 300 MG TABLET FOR TOTAL DOSE = 450 MG. baclofen 10 mg tablet 20 mg PO BEDTIME zolpidem 10 mg tablet 10 mg PO BEDTIME PRN (Reason: Sleep) lorazepam 0.5 mg tablet 0.5 mg PO BID PRN (Reason: Anxiety) Ocrevus 30 mg/mL solution 600 mg IV [id number] metoprolol tartrate 25 mg tablet 37.5 mg PO BID 30 Days Qty: 90 10RF prazosin 1 mg capsule 1 mg PO BEDTIME <Steven Solorio MD - Last Filed: 06/29/24 09:35> Discharge Orders: Discharge Order (Routine); Ordered 06/30/24 Ordered By: Jason Landers <Steven Solorio MD - Last Filed: 06/29/24 09:35> Diet: Advance to usual diet <Steven Solorio MD - Last Filed: 06/29/24 09:35> Advance to usual diet <Jason Landers MD - Last Filed: 06/30/24 11:30> Activity on Discharge: As tolerated <Steven Solorio MD - Last Filed: 06/29/24 09:35> As tolerated <Jason Landers MD - Last Filed: 06/30/24 11:30> Stand Alone Forms: Patient Portal Discharge page <Steven Solorio MD - Last Filed: 06/29/24 09:35> Print Language: Persian <Steven Solorio MD - Last Filed: 06/29/24 09:35> Care Plan Goals: recovery <Steven Solorio MD - Last Filed: 06/29/24 09:35> Health Concerns: katiana, acidosis <Steven Solorio MD - Last Filed: 06/29/24 09:35> Plan of Treatment: dose adjustments per medrec, rehab <Steven Solorio MD - Last Filed: 06/29/24 09:35> Assessment: see above <Steven Solorio MD - Last Filed: 06/29/24 09:35>
[2024-06-28] MEDS: Folic Acid 1 MG TABLET PO (09:15)
[2024-06-28] MEDS: Baclofen 10 MG TABLET PO ×2 (09:16→19:35)
[2024-06-28] MEDS: Tolterodine Tartrate LA 4 MG CAP.ER.24H PO (09:16)
[2024-06-28] MEDS: Sertraline HCL 100 MG TABLET 200 MG PO (09:16)
[2024-06-28] MEDS: oxyCODONE HCl Immed Release 5 MG TABLET 2.5 MG PO ×2 (09:16→19:34)
[2024-06-28] MEDS: Multivitamin TABLET 1 TAB PO (09:16)
[2024-06-28] MEDS: OXcarbazepine 300 MG TABLET PO ×2 (09:16→19:34)
[2024-06-28] MEDS: Thiamine HCL 100 MG TABLET PO (09:16)
[2024-06-28] MEDS: methylPREDNISolone Sod Succ 40 MG/ML VIAL IVPUSH (09:19)
[2024-06-28] MEDS: 0.9 % Sodium Chloride Flush 3 ML SYRINGE IVFLUSH ×3 (09:20→21:23)
[2024-06-28 09:21] VITALS: BP 104/53; PULSE 69
[2024-06-28] MEDS: Nystatin Oral Susp 500,000 UNIT/5 ML ORAL.SUSP 500000 UNIT PO ×4 (09:21→19:34)
[2024-06-28] MEDS: Chlorhexidine Gluc Oral Rinse 15 ML MOUTHWASH BUCCAL ×3 (09:21→19:34)
[2024-06-28] MEDS: LORazepam 0.5 MG TABLET 0.25 MG PO (09:32)
--- NOTE | 2024-06-28 11:50 | MHC.CM.PN ---
Addendum entered by Yumiko Parker 06/28/24 15:48: CM MET WITH PT TO DISCUSS DC SHE REQUESTED TO STAY LONGER FOR MORE IV STEROIDS SHE SAYS THIS IS THE ONLY THING THAT HAS MADE HER FEEL BETTER PER MD, NO MEDICAL BENEFIT FOR STAYING INPATIENT LONGER STATUS OF AUTH IS STILL PENDING PLAN IS TO DC TO [facility] PENDING INS AUTH Original Note: PT IS MEDICALLY CLEARED TO DC TO [facility] TODAY PT WILL DC TO [facility] PENDING INSURANCE AUTH AUTH STILL PENDING
[2024-06-28] MEDS: traMADoL HCL 50 MG TABLET 25 MG PO (13:45)
[2024-06-28 16:32] VITALS: BP 142/64; PULSE 71; TEMP 36.4; O2SAT 95
[2024-06-28] MEDS: Enoxaparin Sodium 40 MG/0.4 ML SYRINGE SUBCUT (17:55)
[2024-06-28 19:30] VITALS: BP 108/54; PULSE 71; RESP 18; TEMP 36.3; O2SAT 96
[2024-06-28] MEDS: QUEtiapine Fumarate 100 MG TABLET PO (19:34)
[2024-06-29 03:13] VITALS: BP 144/66; PULSE 67; RESP 18; TEMP 36.4; O2SAT 96
[2024-06-29 07:45] LABS: Glucose, Whole Blood 96 mg/dL (60-115)
[2024-06-29 08:00] VITALS: BP 119/59; PULSE 71; RESP 16; TEMP 36.5; O2SAT 97
[2024-06-29] MEDS: predniSONE 20 MG TABLET 40 MG PO (08:36)
[2024-06-29] MEDS: Baclofen 10 MG TABLET PO ×2 (08:36→20:20)
[2024-06-29] MEDS: Metoprolol Tartrate 25 MG TABLET PO ×2 (08:36→20:21)
[2024-06-29] MEDS: Multivitamin TABLET 1 TAB PO (08:36)
[2024-06-29] MEDS: Sertraline HCL 100 MG TABLET 200 MG PO (08:36)
[2024-06-29] MEDS: oxyCODONE HCl Immed Release 5 MG TABLET PO ×2 (08:36→20:21)
[2024-06-29] MEDS: Nystatin Oral Susp 500,000 UNIT/5 ML ORAL.SUSP 500000 UNIT PO ×4 (08:38→20:25)
[2024-06-29] MEDS: Tolterodine Tartrate LA 4 MG CAP.ER.24H PO (08:38)
[2024-06-29] MEDS: OXcarbazepine 300 MG TABLET PO ×2 (08:38→20:20)
[2024-06-29] MEDS: Folic Acid 1 MG TABLET PO (08:38)
[2024-06-29] MEDS: 0.9 % Sodium Chloride Flush 3 ML SYRINGE IVFLUSH ×2 (08:38→20:27)
[2024-06-29] MEDS: Thiamine HCL 100 MG TABLET PO (08:38)
[2024-06-29] MEDS: Chlorhexidine Gluc Oral Rinse 15 ML MOUTHWASH BUCCAL ×3 (08:38→20:25)
[2024-06-29 15:11] VITALS: BP 130/60; PULSE 75; RESP 16; TEMP 36.6; O2SAT 92
--- NOTE | 2024-06-29 15:44 | MHC.CM.PN ---
[facility] has not received insurance authorization. Transport has been cancelled for today. The SNF anticipates receiving auth tomorrow. DP [facility] via BLS.
[2024-06-29] MEDS: Enoxaparin Sodium 40 MG/0.4 ML SYRINGE SUBCUT (17:17)
[2024-06-29] MEDS: traMADoL HCL 50 MG TABLET 25 MG PO (17:27)
[2024-06-29 19:22] VITALS: BP 159/73; PULSE 76; RESP 18; TEMP 36; O2SAT 94
[2024-06-29] MEDS: QUEtiapine Fumarate 100 MG TABLET PO (20:21)
[2024-06-29] MEDS: LORazepam 0.5 MG TABLET PO (20:23)
[2024-06-30] MEDS: Zolpidem Tartrate 5 MG TABLET PO (00:52)
[2024-06-30] MEDS: Melatonin 3 MG TABLET 6 MG PO (00:52)
[2024-06-30 03:52] VITALS: BP 100/62; PULSE 74; RESP 18; TEMP 36; O2SAT 98
[2024-06-30 07:49] VITALS: BP 104/51; PULSE 64; RESP 17; TEMP 36.1; O2SAT 94
[2024-06-30] MEDS: Tolterodine Tartrate LA 4 MG CAP.ER.24H PO (09:04)
[2024-06-30] MEDS: Nystatin Oral Susp 500,000 UNIT/5 ML ORAL.SUSP 500000 UNIT PO ×2 (09:04→13:33)
[2024-06-30] MEDS: Chlorhexidine Gluc Oral Rinse 15 ML MOUTHWASH BUCCAL ×2 (09:04→15:17)
[2024-06-30] MEDS: predniSONE 20 MG TABLET 40 MG PO (09:05)
[2024-06-30] MEDS: 0.9 % Sodium Chloride Flush 3 ML SYRINGE IVFLUSH (09:05)
[2024-06-30] MEDS: Folic Acid 1 MG TABLET PO (09:05)
[2024-06-30] MEDS: OXcarbazepine 300 MG TABLET PO (09:05)
[2024-06-30] MEDS: Baclofen 10 MG TABLET PO (09:05)
[2024-06-30] MEDS: Multivitamin TABLET 1 TAB PO (09:05)
[2024-06-30] MEDS: Sertraline HCL 100 MG TABLET 200 MG PO (09:05)
[2024-06-30] MEDS: oxyCODONE HCl Immed Release 5 MG TABLET PO (09:05)
[2024-06-30] MEDS: Metoprolol Tartrate 25 MG TABLET PO (09:05)
[2024-06-30] MEDS: Thiamine HCL 100 MG TABLET PO (09:05)
--- NOTE | 2024-06-30 11:30 | MHC.CM.PN ---
Per MD patient medically cleared for dc. Patient's insurance denied STR stay after peer to peer w/ MD. Plan for home w/ new [facility] (PT/SN). Referral to [facility] - per patient currently has MOW and homemaking services, ? increase in services to include [employer] hours. Christine [facility] liaison aware and will meet with patient priot to dc. CM reviewed plan w/ patient and HCP/nephew Ross who are both agreeable to plan. Family will transport home at 3pm. IMM delivered.
--- NOTE | 2024-06-30 11:30 | W.MHC.F2F ---
Service Date Service Date: 06/30/24 Encounter Date of encounter: 06/30/24 Reasons for Services Signs and symptoms assessed: physical deconditioning Reason for prison: medication management and medication treatment Reason for physical therapy: home safety and mobility and therapeutic exercises Homebound: Leaving the home is medically contraindicated at this time without the asist of a device and/or another person due th the listed conditions above and below. Reason homebound: unsteady gait / fall risk Certification: Based on the above findings, I certify that this patient is confined to the home and needs intermittent prison care, physical therapy and/or speech therapy, or continues to need occupational therapy. The patient is under my care, and I have initiated the establishment of the plan of care. The patient will be followed by a physician who will periodically review the plan of care. Time Spent With Patient Time: Total time managing care of this patient today ____ minutes.
[2024-06-30 15:41] VITALS: BP 114/68; PULSE 103; RESP 18; TEMP 36.4; O2SAT 95
== END 2024-06-30 16:21 | disposition home health service (06) | DRG 304 ==
LOC: HO.ED 14:18 → HO.EDOVER 18:16 → HO.IMC 19:04 → HO.S3 06-25 18:58
PROVIDERS: Family Medicine; Hospitalist; Internal Medicine; Admitting Provider Student in an Organized Health Care Education/Training Program; Emergency Provider Student in an Organized Health Care Education/Training Program; PCP Internal Medicine; Visit Provider Student in an Organized Health Care Education/Training Program
DX: I16.0 Hypertensive urgency (principal); G92.8 Other toxic encephalopathy; N17.9 Acute kidney failure, unspecified; M62.82 Rhabdomyolysis; F05 Delirium due to known physiological condition; E87.21 Acute metabolic acidosis; G31.09 Other frontotemporal neurocognitive disorder; F02.80 Dementia in other diseases classified elsewhere, unspecified severity, without behavioral disturbance, psychotic disturbance, mood disturbance, and anxiety; N32.81 Overactive bladder; E78.5 Hyperlipidemia, unspecified; F39 Unspecified mood [affective] disorder; G89.4 Chronic pain syndrome; F10.20 Alcohol dependence, uncomplicated; G35 Multiple sclerosis; I12.9 Hypertensive chronic kidney disease with stage 1 through stage 4 chronic kidney disease, or unspecified chronic kidney disease; Z20.822 Contact with and (suspected) exposure to COVID-19; N18.2 Chronic kidney disease, stage 2 (mild); Z79.620 Long term (current) use of immunosuppressive biologic; Z79.899 Other long term (current) drug therapy
CPT/HCPCS: 0241U; 36415; 70450; 71260; 72125; 74177; 80048; 80053; 80143; 80179; 80307; 80320; 81001; 82010; 82140; 82550; 82803; 82947; 83605; 83735; 83930; 84100; 84145; 84443; 84484; 85025; 85027; 85610; 86140; 87040; 93005; 97110; 97116; 97162; 97166; 97530; 97535; 99285; J1650; J1920; J2543; J2919; J3411; J7120; Q9967

== ENCOUNTER → 2024-06-15 12:08 | Outpatient (BNV) | payer MEDICARE, MEDICAID, SELFPAY | PROVIDERS: Emergency Provider Student in an Organized Health Care Education/Training Program; Visit Provider Internal Medicine Cardiovascular Disease | DX: R94.31 Abnormal electrocardiogram [ECG] [EKG] (principal) | CPT/HCPCS: 93010 ==

== ENCOUNTER 2024-06-15 17:39 | Outpatient (BNV) | payer MEDICARE, MEDICAID, SELFPAY | END 2024-06-25 15:47 | PROVIDERS: Admitting Provider Student in an Organized Health Care Education/Training Program; Emergency Provider Student in an Organized Health Care Education/Training Program; Visit Provider Internal Medicine Cardiovascular Disease | DX: R10.13 Epigastric pain (principal) | CPT/HCPCS: 93010 ==

== ENCOUNTER → 2024-06-15 17:39 | Outpatient (BNV) | payer MEDICARE, MEDICAID, SELFPAY | PROVIDERS: Admitting Provider Student in an Organized Health Care Education/Training Program; Emergency Provider Student in an Organized Health Care Education/Training Program; Visit Provider Clinical Nurse Specialist Psychiatric/Mental Health, Adult | DX: G31.09 Other frontotemporal neurocognitive disorder (principal); F02.80 Dementia in other diseases classified elsewhere, unspecified severity, without behavioral disturbance, psychotic disturbance, mood disturbance, and anxiety; R41.82 Altered mental status, unspecified | CPT/HCPCS: 99222 ==

== ENCOUNTER → 2024-06-15 17:39 | Outpatient (BNV) | payer MEDICARE, MEDICAID, SELFPAY | PROVIDERS: Admitting Provider Student in an Organized Health Care Education/Training Program; Emergency Provider Student in an Organized Health Care Education/Training Program; Visit Provider Psychiatry & Neurology Neurology | DX: G31.09 Other frontotemporal neurocognitive disorder (principal); F02.C18 Dementia in other diseases classified elsewhere, severe, with other behavioral disturbance | CPT/HCPCS: 99222 ==

== ENCOUNTER → 2024-06-15 17:39 | Outpatient (BNV) | payer MEDICARE, MEDICAID, SELFPAY | PROVIDERS: Admitting Provider Student in an Organized Health Care Education/Training Program; Emergency Provider Student in an Organized Health Care Education/Training Program; Visit Provider Internal Medicine | DX: G31.09 Other frontotemporal neurocognitive disorder (principal); F02.80 Dementia in other diseases classified elsewhere, unspecified severity, without behavioral disturbance, psychotic disturbance, mood disturbance, and anxiety | CPT/HCPCS: 99222; 99231; 99232; 99499 ==

== ENCOUNTER 2024-07-15 15:15 | Outpatient (AMB) | payer MEDICARE, MEDICAID, SELFPAY ==
[2024-07-15 15:22] VITALS: BP 126/86; PULSE 103; RESP 17; TEMP 36.3; O2SAT 97; BMI 36.4
--- NOTE | 2024-07-15 15:22 | MHC.PC.OV ---
Vital Signs 07/15/24 15:22 Height 5 ft 5 in Weight 218 lb 11.177 oz BMI 36.4 BP 126/86 Blood Pressure Location Lt brachial Position Sitting Respiration 17 Pulse 103 H Pulse Source Pulse Oximeter Temp 97.3 F Temp Source Temporal Artery Scan Pulse Oximetry (%) 97 Oxygen Delivery Method Room Air Intake Visit Reasons: [facility] 07/01 HERBERT, KATIANA Interventional Technologist Required: No Allergies prochlorperazine [Compazine] Allergy (Severe, Verified 07/15/24 15:43) Dystonic Reaction cobalt [COBALT] Allergy (Intermediate, Verified 07/15/24 15:43) RASH hydrocodone [Vicodin] Allergy (Intermediate, Verified 07/15/24 15:43) Nausea and Vomiting nickel [NICKEL] Allergy (Intermediate, Verified 07/15/24 15:43) RASH ondansetron [Zofran] Allergy (Intermediate, Verified 07/15/24 15:43) Hives morphine Adverse Reaction (Intermediate, Verified 07/15/24 15:43) Nausea and Vomiting Medication List - Last Reconciled 07/15/24 by RICHARD Negron baclofen 10 mg PO BEDTIME baclofen 10 mg PO BID ergocalciferol (vitamin D2) 1,250 mcg PO QWEEK folic acid 1 mg PO DAILY lorazepam 0.25 mg (1/2 x 0.5 mg) PO BID PRN metoprolol tartrate 25 mg PO BID multivitamin 1 tab PO DAILY oxcarbazepine 300 mg PO BID oxycodone 5 mg PO BID PRN prednisone 40 mg (2 x 20 mg) PO DAILY quetiapine 100 mg PO BEDTIME sertraline 200 mg PO DAILY solifenacin (Vesicare) 10 mg PO DAILY thiamine HCl (vitamin B1) 100 mg PO DAILY zolpidem (Ambien) 5 mg PO BEDTIME PRN Tobacco use date assessed: 04/15/24 Dental Screening Dental Screen Date: 10/09/23 HPI [facility] 07/01 KATIANA GODINEZ HPI Details The reports she is feeling anxious today She has a lot going on, they are trying to take her house Reports that her family told the doctor that she was drinking She only has small amount of wine Discussed with patient that the concern is that she is has multiple medications that causes negative effects when mixed with alcohol She reports that she is feeling much better as far as her physical health But she is worried mentally about the unknown at this time Discussed with patient about repeating labs in 2 months Patient already has a follow up appointment scheduled Discussed with patient about thyroid nodules was seen CT Noted that they were increased since 2020-we will do routine thyroid ultrasound and refer the patient endocrine The patient was also noted to as your 0.5 cm fissural right lower lobe nodule an abdominal/pelvis CT Patient denies ever smoking, but reports that her brother from lung cancer at age 71 and that he was a smoker. The patient appears to be at low risk at this time. Will hold off on ordering a chest CT. Reports restarted MS medication that they stopped in the hospital Reporting that she worked hard to get on these medications She does not want them to mess up her regimen TCM TCM Information Date of Discharge 07/01/24 Discharged From [facility] Interactive Contact Date (Reference documentation from this date) 07/01/24 [facility] Medical History (Updated 07/16/24 @ 14:59 by RICHARD Negron) Hypertension Urinary incontinence Anxiety Anxiety COVID-19 Osteoarthritis of right knee Essential hypertension SVT (supraventricular tachycardia) Depression History of kidney problems Paroxysmal SVT (supraventricular tachycardia) History of confusion Urgency of micturition Memory difficulties Arthritis History of dysphagia Multiple sclerosis GERD (gastroesophageal reflux disease) Anxiety Pain syndrome, chronic Disc degeneration, lumbar 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, bilateral Surgical History Hx of hysterectomy History of surgery on left wrist Deficient knowledge of leg surgery History of rotator cuff surgery History of left knee surgery History of myomectomy History of appendectomy Family History Mother Diabetes Kidney failure Father AAA (abdominal aortic aneurysm, ruptured) Family/Other Mental health disorder Substance use disorder Social History Household Members: Unknown / Unable to assess Housing: House Are you a primary resident care aid to a significant other at home: No Unable to assess alcohol history related to: Unable to respond Alcohol intake: current Alcohol intake frequency: holidays/special occasions only Comment: Tolerable right knee pain per pt. Patient Tobacco Use Status: Never used Tobacco e-Cigarette/Vaping Use: Never Used Second Hand Smoke Exposure: No Advance Directives Date on File: 05/16/21 service: No Current occupational status: retired and disabled Cognitive needs: Yes (walker) Hearing needs: No Vision needs: Yes (glasses) Questionnaire PHQ-9 Over the last 2 weeks, how often have you been bothered by any of the following problems? 1. Little interest or pleasure in doing things: nearly every day 2. Feeling down, depressed, or hopeless: nearly every day 3. Trouble falling or staying asleep, or sleeping too much: several days 4. Feeling tired or having little energy: nearly every day 5. Poor appetite or overeating: not at all 6. Feeling bad about yourself - or that you are a failure or have let yourself or your family down: not at all 7. Trouble concentrating on things, such as reading the newspaper or watching television: several days 8. Moving or speaking so slowly that other people could have noticed. Or the opposite - being so fidgety or restless that you have been moving around a lot more than usual: more than half the days 9. Thoughts that you would be better off or of hurting yourself in some way: not at all Total score: 13 Depression Screening Interpretation: Positive Depression Screening Done: Yes 03636 - PHQ-9 Billing: Yes Source: Developed by Drs. Dewey Angel, Cherie Mei, Dilan Giordano and colleagues, with an educational domingo from [employer]. Thrive Questionnaire Date Thrive assessed: 07/15/24 I am a: Patient What is your living situation today?: I have a steady place to live Within the past 12 months, did the food you bought not last and you didn't have the money to get more?: Never true Within the past 12 months, did you worry whether your food would run out before you got money to buy more?: Never true Do you have trouble paying for medicines?: No Do you have trouble getting transportation to medical appointments?: No Do you have trouble paying your heating and electricity bill?: No Do you have trouble taking care of your child, family member or friend?: No Do you have trouble with day-to-day activities such as bathing, preparing meals, shopping, managing finances, etc.?: No Are you currently unemployed and looking for a job?: No Are you interested in more education?: No Please select the resources that you would like help with: None Currently or been in a relationship where the following occur: No concerns reported THRIVE Score: 0 AUDIT C Alcohol Use Questionnaire (AUDIT-C) 1. How often do you have a drink containing alcohol?: Never 3. How often do you have six or more drinks on one occasion?: Never Total Score: 0 ARNAUD-7 AMB Questionnaire ARNAUD-7 Date ARNAUD - 7 assessed: 07/15/24 Feeling nervous, anxious, or on edge: 3 = Nearly every day Not being able to stop or control worryin = Several days Worrying too much about different things: 1 = Several days Trouble relaxin = Several days Being so restless that it is hard to sit still: 0 = Not at all Becoming easily annoyed or irritable: 0 = Not at all Feeling afraid as if something awful might happen: 1 = Several days Total ARNAUD-7 score (0-4 normal; 5-9 mild; 10-14 moderate; 15-21 severe): 7 Source: Developed by Drs. Dewey Angel, Cherie Mei, Dilan Giordano and colleagues, with an educational domingo from [employer]. ARNAUD-7 Assessment Billing ARNAUD-7 Assessment Tool: ARNAUD-7 Assessment 01439 Review of Systems Const Details: Denies chills, Denies fatigue, Denies fever(s), Denies headache(s) and Denies weakness HEENT Denies change in vision, Denies dizziness, Denies headache(s), Denies hearing loss, Denies nasal congestion, Denies sinus pain, Denies sinus pressure and Denies sore throat Card Denies chest pain, Denies lightheadedness, Denies dyspnea and Denies other (palpitations) Resp Denies cough, Denies dyspnea and Denies wheezing GI Denies abdominal pain, Denies melena, Denies hematochezia, Denies change in bowel habits, Denies dyspepsia and Denies nausea Denies hematuria and Denies dysuria Musc Denies abnormal gait, Denies myalgias, Denies arthralgias, Denies numbness and Denies tingling Skin/Breast Denies rash, Denies unusual bruising and Denies wounds Neuro Denies abnormal gait, Denies dizziness, Denies headache(s), Denies memory loss, Denies numbness, Denies Sensory deficit (Neuro), Denies tingling and Denies weakness Psych reports anxiety, reports depression and Denies memory loss Endo Denies cold intolerance, Denies fatigue, Denies heat intolerance, Denies polydipsia and Denies polyuria Justin/Lymph Denies easy bleeding and Denies easy bruising Aller/Immun Denies wheezing Physical exam (Primary Care) Vital Signs: Last Vital Signs Temp 97.3 F 07/15/24 15:22 Pulse 103 H 07/15/24 15:22 Resp 17 07/15/24 15:22 BP 126/86 07/15/24 15:22 Pulse Ox 97 07/15/24 15:22 Oxygen Delivery Method Room Air 07/15/24 15:22 BMI result Body Mass Index 36.4 Tobacco/Smoking Status: Tobacco use Status Tobacco use date assessed 04/15/24 07/15/24 15:24 Patient Tobacco Use Status Never used Tobacco 07/15/24 15:24 e-Cigarette/Vaping Use Never Used 07/15/24 15:24 PHQ-9: PHQ-9 Score PHQ-9: Total score 13 07/16/24 11:11 Depression Screening Interpretation: Positive Thrive Assessment: Date of Thrive Assessment Date Thrive assessed 07/15/24 07/15/24 15:30 Currently or been in a relationship where the following occur: No concerns reported Const Other: General: no acute distress, well developed, alert and awake Nutritional Appearance: well nourished Orientation/consciousness: patient oriented x3 HENMT Head: Yes normocephalic and Yes atraumatic Ears: hearing grossly normal bilaterally and TM's normal bilaterally General nose exam: Normal external nose present and Normal nares present Eyes Pupils: Equal, round and reactive pupils present and Pupil accommodation reflex normal EOM: EOMs intact bilaterally Neck Neck: Yes normal visual inspection, Yes no lymphadenopathy and Yes trachea midline Thyroid: Thyroid normal Carotids: no bruits Lymphatic: no lymphadenopathy noted Chest Chest palpation & inspection: normal inspection of the chest Resp Effort & Inspection: normal respiratory effort Auscultation: clear to auscultation bilaterally Cardio Rate: regular rate Rhythm: regular rhythm Heart sounds: S1 normal heart sound present, S2 normal heart sound present, no gallops, no murmurs and no rubs Bruits: no abdominal aortic bruits and no carotid bruits GI Palpation (GI): Abdomen large, rounded, soft and nontender to palpation Auscultation: normal bowel sounds General: Yes no CVA tenderness Back/Spine/Pelvis Back: no CVA tenderness Cervical Spine: cervical ROM normal and No Cervical spine tenderness Thoracic/Lumbar Spine: thoraco-lumbar ROM normal, No pain with thoraco-lumbar ROM, No thoracic spinal tenderness and No lumbar spinal tenderness Skin General: warm and dry. Normal skin color. Normal skin turgor Lesions: no lesions Nails: normal Neuro General: patient oriented x3, gait normal Cranial nerves: Yes Equal, round and reactive pupils present Cognition (Neuro): normal cognition Gait exam (Neuro): Normal gait present Extrem General: Yes normal to inspection, No edema and No calf tenderness Psych Appearance: grossly normal Affect: normal affect Attitude: cooperative Thought process: Normal thought process present Coding Level of Care Code TCM Mod MDM <= 14 Days Diagnoses Thyroid nodule E04.1 CKD (chronic kidney disease) stage 2, GFR 60-89 ml/min N18.2 AA (alcohol abuse) F10.10 Frontotemporal dementia G31.09; F02.80 Multiple sclerosis G35 Dizziness R42 Recurrent major depressive disorder, in partial remission F33.41 Depression Type: major depressive disorder Major depression recurrence: recurrent Active/Remission status: in partial remission Primary hypertension I10 Hypertension type: primary hypertension Additional Codes ARNAUD-7 Assessment Billing - ARNAUD-7 Assessment Tool: ARNAUD-7 Assessment 21760 ([id number]) PHQ-9 - 73136 - PHQ-9 Billing: Yes ([id number]) Time Spent (min) 39 Assessment & Plan Assessment & Plan (1) Thyroid nodule: Code(s): E04.1 - Nontoxic single thyroid nodule Category: Medical Plan: Bilateral heterogeneous thyroid nodules. The right thyroid nodule measures 2 x 1.9 cm, increased from 1.8 cm in 2020. And left thyroid nodule measures 1.3 x 0.8 cm, increased from subcentimeter in 2020. Routine thyroid ultrasound ordered. The patient was referred to endocrine. (2) CKD (chronic kidney disease) stage 2, GFR 60-89 ml/min: Code(s): N18.2 - Chronic kidney disease, stage 2 (mild) Category: Medical Plan: History of chronic kidney disease. The patient developed acute kidney disease in the setting of rhabdomyolysis CK trending down after IV fluids. We will order follow-up labs in 2 months Follow up with nephrology as scheduled (3) AA (alcohol abuse): Code(s): F10.10 - Alcohol abuse, uncomplicated Category: Social Hx Plan: Patient reports that she only drinks wine. Discussed with patient that she takes multiple medication that can adversely interact with alcohol Refrain from alcohol use (4) Frontotemporal dementia: Code(s): G31.09 - Other frontotemporal neurocognitive disorder; F02.80 - Dementia in other diseases classified elsewhere, unspecified severity, without behavioral disturbance, psychotic disturbance, mood disturbance, and anxiety Category: Medical Plan: Documented delirium during the patient acute stage. The patient is alert and oriented in office. Per chart review, the patient has mildly confused at baseline Follow up with Neurology as scheduled (5) Multiple sclerosis: Comment: [facility] Code(s): G35 - Multiple sclerosis Category: Medical Plan: Patient was restarted on her baclofen Follow up with Neurology as scheduled (6) Dizziness: Code(s): R42 - Dizziness and giddiness Category: Medical Plan: The patient was hypertensive up to 209/110 in the emergency room Patient family concerned about dependence and alcohol in conjunction with her home medications. Suspected acute toxic metabolic encephalopathy complicated by acute kidney injury, rhabdomyolysis and acute metabolic acidosis. The patient's etiology was unclear. Mental status significantly improved after labs normalized Will recheck labs in 2 months for follow up appt (7) Depression: Code(s): F32.9 - Major depressive disorder, single episode, unspecified Category: Medical Qualifiers: Depression Type: major depressive disorder Major depression recurrence: recurrent Active/Remission status: in partial remission Qualified Code(s): F33.41 - Major depressive disorder, recurrent, in partial remission Plan: The patient reports that the board [employer] is trying to take away her house. The patient is currently prescribed lorazepam 0.25 b.i.d. p.r.n., sertraline 200 mg daily Patient was encouraged to follow up with Psychiatry (8) Hypertension: Code(s): I10 - Essential (primary) hypertension Category: Medical Qualifiers: Hypertension type: primary hypertension Qualified Code(s): I10 - Essential (primary) hypertension Plan: The patient was hypertensive in the ED with unclear etiology. Suspected multiple factors: Acute toxic metabolic encephalopathy complicated with acute kidney injury, rhabdomyolysis, acute metabolic acidosis.There was also a concern of polypharmacy, alcohol/benzo withdrawal. The patient blood pressure 126/86 in office today. Encouraged patient to monitor blood pressure. Orders: Orders Comprehensive [place]. Panel Fast 2 Months . - Dementia in other diseases classified elsewhere, unspecified severity, without behavioral disturbance, psychotic disturbance, mood disturbance, and anxiety, F33.41 - Major depressive disorder, recurrent, in partial remission, G31.09 - Other frontotemporal neurocognitive disorder, G35 - Multiple sclerosis, G89.29 - Other chronic pain, G89.4 - Chronic pain syndrome, I47.1 - Supraventricular tachycardia, M17.11 - Unilateral primary osteoarthritis, right knee, N18.2 - Chronic kidney disease, stage 2 (mild), R42 - Dizziness and giddiness Vitamin D 25-OH Total 2 Months - Dementia in other diseases classified elsewhere, unspecified severity, without behavioral disturbance, psychotic disturbance, mood disturbance, and anxiety, F33.41 - Major depressive disorder, recurrent, in partial remission, G31.09 - Other frontotemporal neurocognitive disorder, G35 - Multiple sclerosis, G89.29 - Other chronic pain, G89.4 - Chronic pain syndrome, I47.1 - Supraventricular tachycardia, M17.11 - Unilateral primary osteoarthritis, right knee, N18.2 - Chronic kidney disease, stage 2 (mild), R42 - Dizziness and giddiness Hemoglobin A1c 2 Months F0 - Dementia in other diseases classified elsewhere, unspecified severity, without behavioral disturbance, psychotic disturbance, mood disturbance, and anxiety, F33.41 - Major depressive disorder, recurrent, in partial remission, G31.09 - Other frontotemporal neurocognitive disorder, G35 - Multiple sclerosis, G89.29 - Other chronic pain, G89.4 - Chronic pain syndrome, I47.1 - Supraventricular tachycardia, M17.11 - Unilateral primary osteoarthritis, right knee, N18.2 - Chronic kidney disease, stage 2 (mild), R42 - Dizziness and giddiness Complete Blood Count Auto Diff 2 Months F0 - Dementia in other diseases classified elsewhere, unspecified severity, without behavioral disturbance, psychotic disturbance, mood disturbance, and anxiety, F33.41 - Major depressive disorder, recurrent, in partial remission, G31.09 - Other frontotemporal neurocognitive disorder, G35 - Multiple sclerosis, G89.29 - Other chronic pain, G89.4 - Chronic pain syndrome, I47.1 - Supraventricular tachycardia, M17.11 - Unilateral primary osteoarthritis, right knee, N18.2 - Chronic kidney disease, stage 2 (mild), R42 - Dizziness and giddiness TSH reflex Free T4 2 Months F02.80 - Dementia in other diseases classified elsewhere, unspecified severity, without behavioral disturbance, psychotic disturbance, mood disturbance, and anxiety, F33.41 - Major depressive disorder, recurrent, in partial remission, G31.09 - Other frontotemporal neurocognitive disorder, G35 - Multiple sclerosis, G89.29 - Other chronic pain, G89.4 - Chronic pain syndrome, I47.1 - Supraventricular tachycardia, M17.11 - Unilateral primary osteoarthritis, right knee, N18.2 - Chronic kidney disease, stage 2 (mild), R42 - Dizziness and giddiness Glucose Fasting 2 Months F02.80 - Dementia in other diseases classified elsewhere, unspecified severity, without behavioral disturbance, psychotic disturbance, mood disturbance, and anxiety, F33.41 - Major depressive disorder, recurrent, in partial remission, G31.09 - Other frontotemporal neurocognitive disorder, G35 - Multiple sclerosis, G89.29 - Other chronic pain, G89.4 - Chronic pain syndrome, I47.1 - Supraventricular tachycardia, M17.11 - Unilateral primary osteoarthritis, right knee, N18.2 - Chronic kidney disease, stage 2 (mild), R42 - Dizziness and giddiness Microalbumin, Random (w Creat) 2 Months F02.80 - Dementia in other diseases classified elsewhere, unspecified severity, without behavioral disturbance, psychotic disturbance, mood disturbance, and anxiety, F33.41 - Major depressive disorder, recurrent, in partial remission, G31.09 - Other frontotemporal neurocognitive disorder, G35 - Multiple sclerosis, G89.29 - Other chronic pain, G89.4 - Chronic pain syndrome, I47.1 - Supraventricular tachycardia, M17.11 - Unilateral primary osteoarthritis, right knee, N18.2 - Chronic kidney disease, stage 2 (mild), R42 - Dizziness and giddiness Lipid Panel 2 Months F02.80 - Dementia in other diseases classified elsewhere, unspecified severity, without behavioral disturbance, psychotic disturbance, mood disturbance, and anxiety, F33.41 - Major depressive disorder, recurrent, in partial remission, G31.09 - Other frontotemporal neurocognitive disorder, G35 - Multiple sclerosis, G89.29 - Other chronic pain, G89.4 - Chronic pain syndrome, I47.1 - Supraventricular tachycardia, M17.11 - Unilateral primary osteoarthritis, right knee, N18.2 - Chronic kidney disease, stage 2 (mild), R42 - Dizziness and giddiness US thyroid Today E04.1 - Nontoxic single thyroid nodule Referrals Endocrinology Referral E04.1 - Nontoxic single thyroid nodule
--- OUTSIDE RECORDS SUMMARY | 2024-07-15 18:08 | XMS_ITS | Clinical Summary ---
Author Organization [address] [place] [address] Address [address] [place] [address] Phone Care Team Providers Care Building Services Coordinator Name Role Phone Drew Marc MD Primary Care Provider [phone] Allergies Active Allergy Reactions Criticality Noted Date Comments Cuba Rash Low 05/29/2022 Hydrocodone Other 09/20/2020 Hydrocodone-Acetaminophen Nausea And Vomiting 0 2019 Morphine Other 09/20/2020 Nickel Other 09/20/2020 Ondansetron Hives 2019 Prochlorperazine Other 2019 Dystonic Tramadol 02/11/2020 Medications Medication Sig Dispensed Refills Start Date End Date Status dilTIAZem (TIAZAC) 120 mg 24 hr capsule 06/10/2021 Active ergocalciferol (VITAMIN D-2) 1,250 mcg (50,000 unit) capsule Take 1 capsule (50,000 Units total) by mouth 1 (one) time per week. 02/26/2022 Active ibuprofen (ADVIL,MOTRIN) 200 mg tablet Take 1 tablet (200 mg total) by mouth every 6 hours as needed. Active LORazepam (ATIVAN) 0.5 mg tablet Take 1 tablet (0.5 mg total) by mouth 2 (two) times a day. Max Daily Amount: 1 mg Active metoprolol tartrate (LOPRESSOR) 25 mg tablet Take 1 tablet (25 mg total) by mouth 2 (two) times a day. Active omeprazole (PriLOSEC) [address] capsule Take 1 capsule (20 mg total) by mouth 2 (two) times a day. 02/01/2021 Active OXcarbazepine (TRILEPTAL) 150 mg tablet Take 1 tablet (150 mg total) by mouth 2 (two) times a day. 06/04/2022 Active oxyCODONE (ROXICODONE) 5 mg immediate release tablet Take 1 tablet (5 mg total) by mouth 2 (two) times a day. Max Daily Amount: 10 mg 10/06/2019 Active QUEtiapine (SEROquel) 25 mg tablet Take 4 tablets (100 mg total) by mouth at bedtime. 01/22/2020 Active sertraline (ZOLOFT) 100 mg tablet TAKE 1 TABLET BY MOUTH 2 TIMES A DAY FOR 30 DAYS 04/10/2022 Active baclofen (LIORESAL) 10 mg tablet TAKE 1 TABLET BY MOUTH IN MORNING AND TWO TABLETS AT NIGHT 270 tablet 1 05/28/2024 Active dilTIAZem CD (CARDIZEM CD) 120 mg 24 hr capsule Take 1 capsule (120 mg total) by mouth 1 (one) time each day. 11/21/2022 Active prazosin (MINIPRESS) 1 mg capsule Take 1 capsule (1 mg total) by mouth. at bedtime 06/25/2024 Active zolpidem (AMBIEN) 5 mg tablet TAKE 1 TABLET ORALLY BEDTIME NEEDED FOR INSOMNIA Active folic acid (FOLVITE) 1 mg tablet Take by mouth 1 (one) time each day. Active multivitamin tablet Take 1 tablet by mouth 1 (one) time each day. Active predniSONE 10 mg tablets,dose pack Take 4 tablets (40 mg total) by mouth. Active thiamine 100 mg tablet Take 10 mg by mouth 1 (one) time each day. Active cyclobenzaprine (FLEXERIL) 10 mg tablet Take 1 tablet (10 mg total) by mouth 3 times daily as needed. 07/08/2024 Discontinued (Therapy completed) zolpidem (AMBIEN) 10 mg tablet 1 tablet (10 mg total). 10/16/2019 07/08/2024 Discontinued (Therapy completed) solifenacin (VESICARE) 10 mg tablet Take 1 tablet (10 mg total) by mouth 1 (one) time each day. 07/08/2024 Discontinued (Therapy completed) Active Problems Problem Noted Date Diagnosed Date Multiple sclerosis 07/18/2020 Back pain 10/26/2019 Headache 10/26/2019 Depression 10/26/2019 Encounters Date Type Department Care Team Description 07/15/[address] [address] Lyly Hampton LCSW Multiple Sclerosis (/) 07/07/2024 3:30 PM EST [facility] [address] [facility] [address] [place] [address] Estephania Anaya PA Frontotemporal dementia (CMS/HCC) (Primary Dx) 05/12/2024 3:00 PM EST Office Visit [facility] [address] [facility] [address] [place] [address] Estephania Anaya PA Multiple sclerosis (CMS/HCC) (Primary Dx) 05/04/[address] [place] [address] Estephania Anaya PA from Last 3 Months Surgical History Surgery Date Site/Laterality Comments KNEE SURGERY PROCEDURE:KNEE SURGERY SHOULDER SURGERY PROCEDURE:SHOULDER SURGERY HYSTERECTOMY PROCEDURE:HYSTERECTOMY APPENDECTOMY PROCEDURE:APPENDECTOMY MYOMECTOMY PROCEDURE:MYOMECTOMY Medical History Medical History Date Comments Fibromyalgia 12/10/2016 DX:Fibromyalgia Headache, migraine DX:Headache, migraine Lumbar radiculopathy 05/06/2012 DX:Lumbar r adiculopathy Lumbar spinal stenosis 07/06/2012 DX:Lumbar spinal stenosis Multiple sclerosis (CMS/HCC) 12/04/2011 DX: Multiple sclerosis (HCC) Osteoarthritis DX:Osteoarthriti s Family History Medical History Relation Name Comments Diabetes type II Mother Kidney disease Mother Relation Name Status Comments Mother Social History Tobacco Use Types Packs/Day Years Used Date Smoking Tobacco: Never Smokeless Tobacco: Never Tobacco Cessation:Counseling Given: Not Answered Alcohol Use Standard Drinks/Week Comments No 0 (1 standard drink = 0.6 oz pur e alcohol) Sex and Gender Information Value Date Recorded Sex Assigned at Not on file Gender Identity Not on file Sexual Orientation Not on file Job Start Date Occupation Industry Not on file Not on file Not on file Obstetrics History Last Filed Vital Signs Vital Sign Reading Time Taken Comments Blood Pressure 145/75 07/07/2024 3:53 PM EST Pulse 78 07/07/2024 3:53 PM EST Temperature 36.7 ??C (98.1 ??F) 07/07/2024 3:53 PM ES T Respiratory Rate - - Oxygen Saturation 95% 07/07/2024 3:53 PM EST Inhaled Oxygen Concentration - - Weight 88.5 kg (195 lb) 07/07/2024 3:53 PM EST Height 165.1 cm (5' 5 ) 07/07/2024 3:53 PM EST Body Mass Index 32.45 07/07/2024 3:53 PM EST Plan of Treatment Upcoming Encounters Date Type Department Care Team (Late st Contact Info) Description 10/13/2024 3:30 PM EDT Office Visit [facility] [address] [place] [address] Danelle Grant MD [address] [place] [address] Health Maintenance Due Date Last Done Comments Breast Cancer Screening 1955 Zoster Vaccines (1 of 2) 09/17/2003 RSV Immunization Patients 60 + Years Old (1 - Risk 60-74 years 1-dose series) 2013 Pneumococcal Vaccine: 65+ Years (2 of 2 - PPSV23 or PCV20) 09/06/2020 09/07/2019 Cholesterol Screening (Lipid Panel) 05/30/2022 Colorectal Cancer Screening: Colonoscopy 05/30/2022 Depression Screening 05/30/2022 Falls Risk Assessment 05/30/2022 Hepatitis C Screening 05/30/2022 Medicare Annual Wellness Visit 05/30/2022 Osteoporosis Screening (Bone Density Screening) 05/30/2022 Social Influencers of Health Screening 05/30/2022 COVID-19 Vaccine (3 - 2023-2 5 season) 2024 04/10/2021, 03/19/2021 Influenza Vaccine (#1) 2024 Hypertension/CHF/CAD Annual BMP Blood Test 05/13/2024 02/14/2021 DTaP,Tdap,and Td Vaccines (2 - Td or Tdap) 04/04/2026 04/04/2016 HIB Vaccines Aged Out No longer eligi ble based on patient's age to complete this topic HPV Vaccines Aged Out No longer eligi ble based on patient's age to complete this topic Hepatitis A Vaccines Aged Out No long er eligible based on patient's age to complete this topic Hepatitis B Vaccines Aged Out No long er eligible based on patient's age to complete this topic IPV Vaccines Aged Out No longer eligi ble based on patient's age to complete this topic MMR Vaccines Aged Out No longer eligi ble based on patient's age to complete this topic Meningococcal ACWY Vaccine Aged Out N o longer eligible based on patient's age to complete this topic RSV Immunization Patients Under 20 months Aged Out No longer eligible b ased on patient's age to complete this topic Varicella Vaccines Aged Out No longer eligible based on patient's age to complete this topic Procedures Procedure Name Priority Date/Time Associated Diagnosis Comments ANNUAL BMP BLOOD TEST Routine 02/14/2021 from Last 3 Months or Most Recently Relevant to Health Maintenance Results * Annual BMP Blood Test (02/14/2021) Annual BMP Blood Test astracted Historical Provider MD KYLIE Chapman from Last 3 Months or Most Recently Relevant to Health Maintenance Care Teams Building Services Coordinator Relationship Specialty Start Date End Date Drew Marc MD [facility] [address] [place] [address] [address] [place] [address] PCP - General Internal Medicine 08/10/20
--- OUTSIDE RECORDS SUMMARY | 2024-07-15 18:08 | XMS_ITS | Encounter Summary ---
Author Organization [facility] Address [address] [place] [address] Care Team Providers Care Supervisor Television Chassis Repair Name Role Phone Drew Marc MD Primary Care Provider [phone]- [phone] Reason for Referral * Consultation (Routine) - Pending Review Specialty Diagnoses / Procedures Referred By Donna stewart Referred To Contact Neurology Diagnoses Frontotemporal dementia (CMS/HCC) Estephania Anaya PA [address] [facility] [place], [place] [address] Referral ID Status Reason Start Date Expiration Date Visits Requested Visits Authorized [id number] Pending Review Specialty Services Required 07/08/2024 07/08/2025 1 1 Scheduling Instructions Please refer to dementia specialist at [facility] for evaluation of dementia-has been told she has frontotemporal dementia. Patient also has diagnosis of MS Encounter Details Date Type Department Care Team (Latest Contact Info) Description 07/07/2024 3:30 PM EST Office Visit [facility] - [address] [place] [address] Estephania Anaya PA [address] [place] [address] for [place] [id number] Frontotemporal dementia (CMS/HCC) (Primary Dx) Social History Tobacco Use Types Packs/Day Years [...] file Not on file Not on file documented as of this encounter Last Filed Vital Signs Vital Sign Reading [...] Mass Index 32.45 07/07/2024 3:53 PM EST documented in this encounter Progress Notes * RICHIE Haynes - 07/07/2024 3:30 PM EST [facility] CC: MS HPI: Patient is a 68 y.o. year old female who presents for follow-up regarding ongoing management of multiple sclerosis. Disease Summary Date of onset/Initial symptom presentation: 2009 Date of diagnosis of MS: 2009 Disease course at onset: Relapsing Current disease course: Relapsing versus progressive Last MS exacerbation: Previous disease therapies(reason for switch): Cytoxan, Tecfidera, Aubagio, Copaxone, Ocrevus Current disease therapy: none Most recent MRI Brain: (stable) Most recent MRI Cervical spine: 06/19/2023 (normal cord), multilevel spondylosis with posterior disc protrusions contributing to central stenosis and foraminal narrowing Most recent MRI Thoracic spine: 06/19/2023 (normal cord), moderate multilevel degenerative spondyloarthropathy of the thoracic spine. No overt thoracic spinal canal stenosis or nerve root compression. CSF: Negative per patient, no result available JCV serology result and date: none available MS mimickers: Not performed/available Interval history Patient returns for hospital follow-up visit and is accompanied by 2 great nephews. She is not on any DMT at this time. Patient presented to ED on 06/15/2024 after being found on the floor by a neighbor. She had been down for an unknown amount of time. Hospital records note that she was found to be encephalopathic andhallucinating by EMS, transported to hospital. Workup negative for infection/UTI, patient admitted for acute toxic encephalopathy with KATIANA, rhabdomyolysis ,metabolic acidosis, probable exacerbation of frontotemporal dementia, probable alcohol dependence. She was stabilized and condition/mental status improved significantly, thiamine and folic acid added for alcohol dependence. She was recommendedfor discharge to short-term nursing facility however insurance denied and she was discharged home with PT services. During interview today patient describes multiple symptoms and has difficulty staying on topic in conversation. She is a poor historian. She describes nightmares and states that she is working with her corporate logistics manager (Esvni Milian) regarding this. Reporting significant joint pain, especially knees bilaterally. Notes intermittent squeezing pain around thoracic area that was worse while she was in the hospital. Was told she has frontotemporal dementia but has not seen dementia specialist. Requesting ongoing steroids for symptomatic relief. Denies alcohol dependence stating that she drinks 1 glass of wine daily. Expresses concerns regarding legal, housing issues. She is tearful during much of our conversation. She has VNA services coming to her home. Has not seen PCP for hospital follow-up. Nephews express concerns about her cognitive impairment, alcohol use, and polypharmacy. Requesting education about MS disease process and treatment. Last visit history reviewed: She describes multiple symptoms including: abdominal pain L sided chest pain I've been having tachycardia Feet feel like she is wearing shoes that are too tight- ongoing for months. Having more difficulty with urinary incontinence. I can't remember things. She isn't sure if she has had any infections since she was last seen in the office. Review of Systems Constitutional: Positive for fatigue. Musculoskeletal: Positive for gait problem. All other systems reviewed and are negative. Patient Active Problem List Diagnosis SNOMED CT(R) Back pain BACKACHE Headache HEADACHE Depression DEPRESSIVE DISORDER Multiple sclerosis (HCC) MULTIPLE SCLEROSIS Current Outpatient Medications: baclofen (LIORESAL) 10 MG tablet, TAKE 1 TABLET in morning , two tablets at night, Disp: 90 tablet,Rfl: 3 cyclobenzaprine (FLEXERIL) 10 MG tablet, Take 1 tablet (10 mg total) by mouth 3 (three) times a dayas needed for muscle spasms., Disp: , Rfl: dilTIAZem (CARDIZEM CD) 120 MG 24 hr capsule, , Disp: , Rfl: ergocalciferol (VITAMIN D2) capsule 62420 units, TAKE 1 CAPSULE BY MOUTH ONE TIME PER WEEK, Disp: 12 capsule, Rfl: 2 ibuprofen (ADVIL,MOTRIN) 200 MG tablet, Take 1 tablet (200 mg total) by mouth every 6 (six) hours as needed for pain (2 tablets 3x a day)., Disp: , Rfl: LORazepam (ATIVAN) 0.5 MG tablet, Take 1 tablet (0.5 mg total) by mouth 2 (two) times a day., Disp:, Rfl: metoprolol tartrate (LOPRESSOR) 25 MG tablet, Take by mouth 2 (two) times a day., Disp: , Rfl: omeprazole (PriLOSEC) 20 MG capsule, Take 1 capsule (20 mg total) by mouth 2 (two) times a day., Disp: , Rfl: OXcarbazepine (TRILEPTAL) 150 MG tablet, TAKE 1 TABLET BY MOUTH TWICE A DAY, Disp: 120 tablet, Rfl:0 oxyCODONE (ROXICODONE) 5 MG immediate release tablet, Take 1 tablet (5 mg total) by mouth 2 (two) times a day., Disp: , Rfl: QUEtiapine (SEROquel) 25 MG tablet, Take 2 tablets (50 mg total) by mouth every night at bedtime., Disp: , Rfl: sertraline (ZOLOFT) 100 MG tablet, TAKE 1 TABLET BY MOUTH 2 TIMES A DAY FOR 30 DAYS., Disp: 180 tablet, Rfl: 1 zolpidem (AMBIEN) 10 MG tablet, , Disp: , Rfl: Neuro Exam Vitals: 07/07/24 1553 BP: (!) 145/75 Pulse: 78 Temp: 36.7 ??C (98.1 ??F) SpO2: 95% General: A&Ox3 . Tearful, difficulty staying on topic, poor historian Cranial Nerves: PERRL, EOMI without nystagmus, facial strength symmetric, no facial droop, tongue protrusion midline, speech clear, shoulder shrug symmetric Motor:5/5 BUE , weakness in BLE she does have pain in her lower extremity 3/5 proximally worse on the left side Sensory: temperature, light touch, and vibratory sense intact throughout Reflexes: 2+/4+ bilateral biceps, 2+/4+ bilateral patellar Cerebellar: FTN without dysmetria or ataxia bilaterally, decreased finger and foot tapping bilaterally, no dysdiadochokinesia, negative Rhomberg Gait: pt using wheelchair 25 foot timed walk: Unable to perform A/P: Multiple Sclerosis: Sarah Dash is a 68-year-old female with multiple sclerosis last treated with Ocrevus in the spring 2021. She has multiple comorbidities including possible frontotemporal dementia, psychiatric illness, kidney disease, hypertension, arthritis, possible alcohol dependence. Unfortunately it sounds like there are some stressors in her personal life as well which are contributing to her distress. 90 minutes were spent with patient and her nephews providing education regarding MS disease state, how her MS has been treated in the past with disease modifying therapies, and the rationale for discontinuing Ocrevus due to increased risk of infection in the setting of multiple significant infections over the past 1 to 2 years. We discussed progressive nature of MS and how over time and with the a ging process we see diminished healthy brain reserve to compensate for older demyelinating lesions.We reviewed that in addition to her MS, she has multiple other medical and psychiatric comorbidities which are contributing to her overall declining medical picture. Her nephews expressed understanding. We spent a significant amount of time reviewing her currently prescribed medications (nephews brought a bag of her medication bottles), what each medication is used for, potential adverse effects, and the concept of polypharmacy, particularly in the setting of multiple sedating medications with concomitant use of alcohol. We discussed that polypharmacy/alcohol use can contribute to increased sedation, increased cognitive symptoms/confusion, worsening balance and increased risk of falls, which is particularly concerning in the setting of patient living alone. Currently, our office is only presc ribing the baclofen and the vitamin D. She reports that baclofen has been somewhat helpful in reducing her myelopathic pain and therefore I will continue this but would not suggest increasing the dose. I strongly advised patient and family to arrange for a follow-up visit with patient's PCP to review all of her medications and her case in general. Would not recommend continued use of steroid (patient is completing oral prednisone taper now). To address concern of possible frontotemporal dementia which was mentioned in her hospital notes, Anthony entering a referral to a dementia specialist at [facility] for further evaluation. She continues with her regular care team including psychiatry (Esvin Milian), nephrology (Dr. Godoy), cardiology, orthopedics, and PCP. To address concerns of home safety and questions regarding resources for assistance, I will reach out to our social science instructor Lyly and ask her to contact patient's nephew Ross. She will continue with home VNA services. A. Disease modifying therapy and diagnostic plan: -No DMT at this time -Continue symptomatic management -MRI brain and cervical spine without contrast will be performed annually to assess for radiologic changes B. Symptomatic therapy plan: Neuropathic/myelopathic pain:Continue baclofen 10 mg + 20 mg at night neurogenic bladder: Continue care with urology. Has considered Botox treatment. Cognitive impairment: Patient has declined neuropsych testing. Will refer to dementia specialist. Anxiety/depression: Continue to follow with psychiatry/behavioral health (Esvin Milian) Low back pain: Continue following with [facility] pain management Cervical disc disease/lumbar disc disease: has seen Dr. Baxter, sheryl f/u if needed Patient was encouraged to call the office with any questions or concerns. Follow up in 3 months or sooner as needed The patient and I discussed the clinical picture during today's appointment. Additional time was spent prior to the actual appointment reviewing records, lab values and imaging results and preparing documentation for today's visit. There was also time spent following the in person visit documenting, arranging for further diagnostic testing and follow-up appointments. The entire time spent in thisprocess was greater than 90 minutes. The majority of the actual [id number] visit was spent counseling the patient with respect to the current neurological picture. Estephania Anaya PA-C documented in this encounter Plan of Treatment Upcoming Encounters Date Type Department Care Team (Late st Contact Info) Description 10/13/2024 3:30 PM EDT Office Visit [facility] [address] [facility] [address] [place] [address] Danelle Grant MD [address] [facility] [address] [place] [address] Scheduled Referrals Name Type Priority Associated Diagnoses Order Schedule Ambulatory referral to Neurology Outpatient Referral Routine Frontotemporal dementia (CMS/HCC) 1 Occurrences starting 07/08/2024 until 07/08/2025 documented as of this encounter Visit Diagnoses Diagnosis Frontotemporal dementia ([facility]/HCC)- Primary documented in this encounter Discontinued Medications Medication Sig Discontinue Reason Start Date End Da te zolpidem (AMBIEN) 10 mg tablet 1 tablet (10 mg total). Therapy completed 10/16/2019 07/08/2024 solifenacin (VESICARE) 10 mg tablet Take 1 tablet (10 mg total) by mouth 1 (one) time each day. Therapy completed 07/08/2024 cyclobenzaprine (FLEXERIL) 10 mg tablet Take 1 tablet (10 mg total) by mouth 3 times daily as needed. Therapy completed 07/08/2024 documented as of this encounter Historical Medications * This list may reflect changes made after this encounter. Medication Sig Dispensed Refills Start Date End Date thiamine 100 mg tablet Take 10 mg by mouth 1 (one) time each day. predniSONE 10 mg tablets,dose pack Take 4 tablets (40 mg total) by mouth. multivitamin tablet Take 1 tablet by mouth 1 (one) time each day. folic acid (FOLVITE) 1 mg tablet Take by mouth 1 (one) time each day. zolpidem (AMBIEN) 5 mg tablet TAKE 1 TABLET ORALLY BEDTIME NEEDED FOR INSOMNIA prazosin (MINIPRESS) 1 mg capsule Take 1 capsule (1 mg total) by mouth. at bedtime 06/25/2024 dilTIAZem CD (CARDIZEM CD) 120 mg 24 hr capsule Take 1 capsule (120 mg total) by mouth 1 (one) time each day. 11/21/2022 added in this encounter Care Teams Supervisor Television Chassis Repair Relationship Specialty Start Date End Date Drew Marc MD [facility] [address] [place] [address] [address] [place] [id number] PCP - General Internal Medicine 08/10/20 documented as of this encounter
--- OUTSIDE RECORDS SUMMARY | 2024-07-15 18:08 | XMS_ITS | Clinical Summary ---
Author Organization [facility] Address [address] [place] [address] Care Team Providers Care Call Out Clerk Name Role Phone Drew Marc MD Primary Care Provider + Allergies Active Allergy Reactions Criticality Noted Date Comments Prochlorperazine Other (See Comments) 0 Dystonic Tramadol 02/11/2020 Hydrocodone-Acetaminophen Nausea And Vomiting 0 2019 Ondansetron Hives 2019 Medications Medication Sig Dispensed Refills Start Date End Date Status zolpidem (AMBIEN) 10 MG tablet 0 10/16/2019 Active oxyCODONE (ROXICODONE) 5 MG immediate release tablet Take 1 tablet (5 mg total) by mouth 2 (two) times a day. 0 10/06/2019 Active LORazepam (ATIVAN) 0.5 MG tablet Take 1 tablet (0.5 mg total) by mouth 2 (two) times a day. 0 Active QUEtiapine (SEROquel) 25 MG tablet Take 2 tablets (50 mg total) by mouth every night at bedtime. 0 01/22/2020 Active cyclobenzaprine (FLEXERIL) 10 MG tablet Take 1 tablet (10 mg total) by mouth 3 (three) times a day as needed for muscle spasms. 0 Active ibuprofen (ADVIL,MOTRIN) 200 MG tablet Take 1 tablet (200 mg total) by mouth every 6 (six) hours as needed for pain (2 tablets 3x a day). 0 Active omeprazole (PriLOSEC) 20 MG capsule Take 1 capsule (20 mg total) by mouth 2 (two) times a day. 0 02/01/2021 Active dilTIAZem (CARDIZEM CD) 120 MG 24 hr capsule 0 06/10/2021 Active metoprolol tartrate (LOPRESSOR) 25 MG tablet Take by mouth 2 (two) times a day. 0 Active sertraline (ZOLOFT) 100 MG tablet TAKE 1 TABLET BY MOUTH 2 TIMES A DAY FOR 30 DAYS. 180 tablet 1 04/10/2022 Active OXcarbazepine (TRILEPTAL) 150 MG tablet TAKE 1 TABLET BY MOUTH TWICE A DAY 120 tablet 0 06/04/2022 Active baclofen (LIORESAL) 10 MG tablet TAKE 1 TABLET in morning , two tablets at night 90 tablet 3 10/27/2023 Active ergocalciferol (VITAMIN D2) capsule 59321 units TAKE 1 CAPSULE BY MOUTH ONE TIME PER WEEK 12 capsule 2 12/05/2023 Active Active Problems Problem Noted Date Diagnosed Date Multiple sclerosis 07/18/2020 Back pain 10/26/2019 Headache 10/26/2019 Depression 10/26/2019 Family History Medical History Relation Name Comments [...] Information Value Date Recorded Sex Assigned at Female 06/13/2021 1:21 PM EST Gender Identity Not on file Sexual Orientation Not on file Job Start Date Occupation Industry Not on file Not on file Not on file Last Filed Vital Signs Vital Sign Reading Time Taken Comments Blood Pressure 139/83 02/16/2024 4:24 PM EDT Pulse 70 02/16/2024 4:24 PM EDT Temperature 35.8 ??C (96.5 ??F) 02/16/2024 4:24 PM ED T Respiratory Rate 16 04/23/2023 2:56 PM EDT Oxygen Saturation 93% 02/16/2024 4:24 PM EDT Inhaled Oxygen Concentration - - Weight 90.7 kg (200 lb) 07/01/2022 4:00 PM EST Height 165.1 cm (5' 5 ) 07/01/2023 9:55 AM EST Body Mass Index 33.28 07/01/2022 4:00 PM EST Plan of Treatment Health Maintenance Due Date Last Done Comments Hepatitis C Screening 1955 COVID-19 Vaccine (#1) 03/19/1954 Depression Screening 1965 BMI Counseling 09/17/1971 Preventative Health Evaluation 09/17/1971 DTap / Tdap / Td (1 - Tdap) 1972 Colon Cancer Screening (Colonoscopy) 1998 Breast Cancer Screening (Mammogram) 09/17/2003 Shingrix-Zoster Vaccine (1 of 2) 09/17/2003 Fall Risk Assessment 2018 Osteoporosis Screening (DEXA Scan) 2018 Pneumococcal Vaccine (1 of 1 - PCV) 2018 Influenza Vaccine (#1) 2024 RSV Adult > 60+ Yrs or Pregn ant (1 - 1-dose 75+ series) 2028 Hepatitis B Vaccines Aged Out No long er eligible based on patient's age to complete this topic RSV Ped < 20 months Aged Out No longe r eligible based on patient's age to complete this topic Care Teams Call Out Clerk Relationship Specialty Start Date End Date Drew Marc MD [address] [place] [address] Dr Stokes [address] [place] [id number] PCP - General Internal Medicine 08/10/20
--- OUTSIDE RECORDS SUMMARY | 2024-07-15 18:08 | XMS_ITS | Encounter Summary ---
Author Organization [facility] Address [address] [place] [address] Care Team Providers Care Griddle Cook Name Role Phone Drew Marc MD Primary Care Provider +1- [phone] Reason for Visit * Reason Onset Date Comments Multiple Sclerosis 07/15/2024 Encounter Details Date Type Department Care Team (Late st Contact Info) Description 07/15/2024 Telephone [facility] [address] [phone] Lyly De Jesus LCSW Multiple Sclerosis (/) Social History Tobacco Use Types Packs/Day Years Used Date Smoking Tobacco: Never Smokeless Tobacco: Never Alcohol Use Standard Drinks/Week Comments No 0 (1 standard drink = 0.6 oz pur e alcohol) Sex and Gender Information Value Date Recorded Sex Assigned at Not on file Gender Identity Not on file Sexual Orientation Not on file Job Start Date Occupation Industry Not on file Not on file Not on file documented as of this encounter Progress Notes * Lyly De Jesus LCSW - 07/15/2024 12:54 PM EST Referred for social work, specifically safety concerns at home. Called pt's nephew, no answer. Leftmessage requesting return call. documented in this encounter Plan of Treatment Upcoming Encounters Date Type Department Care Team (Late st Contact Info) Description 10/13/2024 3:30 PM EDT Office Visit [facility] [address] [place] [address] Danelle Grant MD [address] [facility] [address] [place] [address] documented as of this encounter Visit Diagnoses Not on filedocumented in this encounter Care Teams Griddle Cook Relationship Specialty Start Date End Date Drew Marc MD [address] [place] [address] PCP - General Internal Medicine 08/10/20 documented as of this encounter
--- OUTSIDE RECORDS SUMMARY | 2024-07-15 18:08 | XMS_ITS | Clinical Summary ---
Author Organization [facility] Address [address] [place] [address] Phone Care Team Providers Care Manager Steel Name Role Phone Drew Marc MD Primary Care Provider + Allergies Active Allergy Reactions Criticality Noted Date Comments [place] Rash Low 05/29/2022 Hydrocodone Other (see comments) 09/20/2020 Hydrocodone-Acetaminophen Nausea And Vomiting 0 2019 Lactose Other (see comments) 09/20/2020 Milk (Cow) Other (see comments) 04/24/2017 Gastrointestinal per patient Morphine Other (see comments) 09/20/2020 Nickel Other (see comments) 09/20/2020 Ondansetron Hives,Other (see comments) 2019 Prochlorperazine Other (see comments) 2019 Dystonic Tramadol 02/11/2020 Medications carvedilol (COREG) 25 MG tablet Take 1 tablet by mouth in the morning and 1 tablet in the evening. 12/08/2019 Active cyclobenzaprine (FLEXERIL) 10 MG tablet Take 1 tablet by mouth 3 (three) times a day 09/15/2020 Active ergocalciferol (VITAMIN D2) 1.25 MG (42331 UT) capsule Take 1 capsule by mouth 1 (one) time per week 09/08/2020 Active LORazepam (ATIVAN) 0.5 MG tablet Take 1 tablet by mouth 2 (two) times a day Active omeprazole (PriLOSEC) [address] capsule Take 1 capsule by mouth 2 (two) times a day Active OXcarbazepine (TRILEPTAL) 300 MG tablet Take 1 tablet by mouth 2 (two) times a day Active oxyCODONE (ROXICODONE) 5 MG immediate release tablet Take 1 tablet by mouth 2 (two) times a day Active sertraline (ZOLOFT) 100 MG tablet Take 1 tablet by mouth in the morning and 1 tablet in the evening. Active zolpidem (AMBIEN) 10 MG tablet Take 1 tablet by mouth at bed time Active solifenacin (VESICARE) 10 MG tablet Take 10 mg by mouth 1 (one) time each day Swallow tablet whole; do not crush, chew, or split. Active QUEtiapine (SEROquel) 50 MG tablet Take 50 mg by mouth every night Active ibuprofen (ADVIL,MOTRIN) 200 MG tablet Take 200 mg by mouth every 6 (six) hours if needed for mild pain Active metoprolol succinate XL (TOPROL XL) 25 MG 24 hr tablet Take 25 mg by mouth 1 (one) time each day Do not crush or chew. Active dilTIAZem CD (CARDIZEM CD) 120 MG 24 hr capsule Take 1 capsule by mouth 1 (one) time each day 11/21/2022 Active Gemtesa 75 MG tablet 01/13/2023 Active triamcinolone (KENALOG) 0.1 % cream 01/02/2023 Active Active Problems Problem Noted Date Diagnosed Date Hypertension 04/25/2021 Essential hypertension 09/20/2020 Hyponatremia 09/20/2020 Multiple sclerosis 07/18/2020 Back pain 10/26/2019 Depressive disorder 10/26/2019 Headache 10/26/2019 Adjustment disorder with depressed mood 02/25/20 18 Chronic fatigue 11/08/2014 Diverticulitis of colon 05/11/2014 Leiomyoma of uterus 05/11/2014 Noninflammatory disorder of ovary, fallopian tube and broad ligament, unspecified 05/11/2014 Chronic migraine without aura 12/12/2011 Pain in right hip 09/08/2009 Arthropathy 11/24/2008 Osteoarthritis 11/24/2008 Family History Medical History Relation Comments Diabetes Mother Relation Status Comments Father Mother Social History Tobacco Use Types Packs/Day Years Used Date Smoking Tobacco: Never Smokeless Tobacco: Never Tobacco Cessation:Counseling Given: Not Answered Alcohol Use Standard Drinks/Week Comments Yes 0 (1 standard drink = 0.6 oz pure alcohol) Alcoholic Drinks/day: Occasional social drink Comments Unknown Sex and Gender Information Value Date Recorded Sex Assigned at Not on file Legal Sex Female 4:52 PM EST Gender Identity Not on file Sexual Orientation Not on file Last Filed Vital Signs Vital Sign Reading Time Taken Comments Blood Pressure 128/70 05/29/2022 4:54 PM EST Pulse 76 04/25/2021 2:07 PM EDT Temperature - - Respiratory Rate - - Oxygen Saturation 97% 04/25/2021 2:07 PM EDT Inhaled Oxygen Concentration - - Weight 99.3 kg (219 lb) 05/29/2022 4:54 PM EST Height 160 cm (5' 3 ) 12/08/2019 12:00 PM EDT Body Mass Index 38.79 12/08/2019 12:00 PM EDT Plan of Treatment Health Maintenance Due Date Last Done Comments Breast Cancer Screening 1955 Pneumococcal Vaccine: 65+ Ye ars (1 of 2 - PCV) 09[birth year]17/1961 Colorectal Cancer Screening: Annual FOBT 2002 Colorectal Cancer Screening: Colonoscopy 2002 Colorectal Cancer Screening: Sigmoidoscopy 2002 Influenza Vaccine (#1) 2024 Hepatitis B Vaccine Aged Out No longe r eligible based on patient's age to complete this topic Insurance MEDICAID [place] UHC MEDICARE * Guarantor: Sarah Dash Account Type Relation to Patient Date of Phone Billing Address Personal/Family Self 1955 [address] [place] [address] MEDICAID [place] UHC MEDICARE Care Teams Manager Steel Relationship Specialty Start Date End Date Drew Marc MD [facility] [address] [place] [address] [address] PCP - General 09/20/20
== END 2024-07-15 16:13 | disposition home or self-care (01) ==
LOC: HO.HMCH 15:15
PROVIDERS: PCP Internal Medicine
DX: I12.9 Hypertensive chronic kidney disease with stage 1 through stage 4 chronic kidney disease, or unspecified chronic kidney disease (principal); G31.09 Other frontotemporal neurocognitive disorder; F02.80 Dementia in other diseases classified elsewhere, unspecified severity, without behavioral disturbance, psychotic disturbance, mood disturbance, and anxiety; F33.41 Major depressive disorder, recurrent, in partial remission; G35 Multiple sclerosis; E04.1 Nontoxic single thyroid nodule; N18.2 Chronic kidney disease, stage 2 (mild); F10.10 Alcohol abuse, uncomplicated; R42 Dizziness and giddiness

== ENCOUNTER → 2024-07-15 15:15 | Outpatient (BNVA) | payer MEDICARE, MEDICAID, SELFPAY | PROVIDERS: PCP Internal Medicine | DX: E04.1 Nontoxic single thyroid nodule (principal); I12.9 Hypertensive chronic kidney disease with stage 1 through stage 4 chronic kidney disease, or unspecified chronic kidney disease; N18.2 Chronic kidney disease, stage 2 (mild); F10.10 Alcohol abuse, uncomplicated; G31.09 Other frontotemporal neurocognitive disorder; F02.80 Dementia in other diseases classified elsewhere, unspecified severity, without behavioral disturbance, psychotic disturbance, mood disturbance, and anxiety; G35 Multiple sclerosis; R42 Dizziness and giddiness; F33.41 Major depressive disorder, recurrent, in partial remission | CPT/HCPCS: 96127; 99495 ==

== ENCOUNTER 2024-07-17 01:12 | Inpatient (IN) | payer MEDICARE, MEDICAID, SELFPAY ==
--- NOTE | 2024-07-17 | ECG_ITS ---
Test Reason : epigastric pain Blood Pressure : */* mmHG Vent. Rate : 81 BPM Atrial Rate : 81 BPM P-R Int : 168 ms QRS Dur : 84 ms QT Int : 420 ms P-R-T Axes : 32 13 48 degrees QTcB Int : 487 ms Normal sinus rhythm Nonspecific ST abnormality Abnormal ECG When compared with ECG of 17-Jul-2024 22:04, Premature atrial complexes are no longer Present Referred By: Nasir Dawn Electronically Signed By: GIOVANY LANGSTON MD
--- NOTE | 2024-07-17 | ECG_ITS ---
Test Reason : epigastric pain Blood Pressure : */* mmHG Vent. Rate : 83 BPM Atrial Rate : 83 BPM P-R Int : 176 ms QRS Dur : 80 ms QT Int : 416 ms P-R-T Axes : 92 28 55 degrees QTcB Int : 488 ms Sinus rhythm with Premature atrial complexes Nonspecific ST abnormality Abnormal ECG When compared with ECG of 17-Jul-2024 02:35, Minimal criteria for Inferior infarct are no longer Present Referred By: Nasir Dawn Electronically Signed By: GIOVANY LANGSTON MD
--- NOTE | ~2024-07-17 | CT_ITS ---
CLINICAL HISTORY: abd pain CT abdomen and pelvis with contrast Comparison: CT/SR - CT ABDOMEN PELVIS W IV CON - 06/15/24 14:18 EST Findings: Bibasilar atelectasis. No basilar pleural or pericardial effusion. Fatty involution of the pancreas. Left-sided simple renal cysts. No hydronephrosis or hydroureter. Gallbladder and remainder of the solid intra-abdominal organs are unremarkable. Distal esophagus is normal. Stomach is predominantly collapsed. Small bowel is nondilated. Few fluid-filled mildly prominent loops of bowel in the left abdomen, not dilated by size criteria, possibly reflecting enteritis or ileus. Early obstruction not excluded. Close clinical follow-up recommended. Appendix is not visualized. No secondary signs to suggest acute appendicitis. Scattered colonic diverticula without diverticulitis. Fluid attenuation in the colon and rectosigmoid junction, may reflect loose stool/diarrhea. Mild haziness/stranding of the small bowel mesentery with some prominent though nonenlarged by size criteria small bowel mesenteric lymph nodes, nonspecific and possibly reactive. Mild wall thickening of the urinary bladder, possibly related to underdistention though correlate with urinalysis to exclude cystitis. Uterus is not visualized, atrophic or surgically absent. No adnexal masses. No free fluid. No free air. No lymphadenopathy. Atherosclerotic calcifications of the aorta. No acute fracture.Multilevel degenerative changes of the spine. Grade 1 anterolisthesis of L4 on L5 and L5 on S1. IMPRESSION: 1. Few fluid-filled mildly prominent loops of bowel in the left abdomen, not dilated by size criteria, possibly reflecting enteritis or ileus. Early obstruction not excluded. Close clinical follow-up recommended. 2. Mild haziness/stranding of the small bowel mesentery with some prominent though nonenlarged by size criteria small bowel mesenteric lymph nodes, nonspecific and possibly reactive. 3. Fluid attenuation in the colon and rectosigmoid junction, may reflect loose stool/diarrhea. 4. Scattered colonic diverticula without diverticulitis. 5. Mild wall thickening of the urinary bladder, possibly related to underdistention though correlate with urinalysis to exclude cystitis. 6. Additional findings as described. This document has been electronically signed by: Debbie Gonzalez MD on 07/17/2024 12:08:20
--- NOTE | ~2024-07-17 | CT_ITS ---
CLINICAL HISTORY: dizziness room spinning CT Head without contrast. CT angiography head and neck with contrast. 3D Postprocessing. Comparison: CT/SR - CT CERVICAL SPINE WO IV CON - 06/15/24 12:[address]/SR - CT HEAD/BRAIN WO IV CON - 06/15/24 12:38 EST Findings: HEAD CT: No intra-axial mass, midline shift, hydrocephalus, or acute hemorrhage. Global age-related atrophic changes. Scattered subcortical white matter and periventricular white matter hypodensities, nonspecific and may reflect sequelae of chronic microvascular ischemic change. Old left basal ganglia lacunar infarction. There is no sinus or mastoid fluid. The orbits are unremarkable. There is no acute fracture. HEAD AND NECK CTA: Aortic arch and cervical great vessels are patent. Calcified and noncalcified atherosclerotic plaque at the right carotid bulb. Intracranial arteries are patent. No aneurysm, dissection, or occlusion. Atherosclerotic calcifications of the bilateral carotid artery siphons and intracranial carotid arteries. Atherosclerotic calcifications at the V4 segment of the left vertebral artery. No abnormal intracranial enhancement. The visualized thyroid gland is heterogenous. There is a possible 1.9 cm right thyroid nodule, consider a dedicated thyroid ultrasound. No cervical mass or fluid collection. Lung apices show bibasilar atelectasis and some scattered areas of mosaic attenuation which may be related to the phase of inspiration and/or air trapping. No acute fracture. Multilevel degenerative changes of the spine. Sclerotic focus along the left occipital condyle, nonspecific and likely a bone island. IMPRESSION: 1. Unremarkable head CT. 2. Patent head and neck CTA. Scattered areas of atherosclerotic calcifications are noted without significant area of stenosis. 3. There is a possible 1.9 cm right thyroid nodule, consider correlation with a nonemergent dedicated thyroid ultrasound. This document has been electronically signed by: Debbie Gonzalez MD on 07/17/2024 12:39:20
[2024-07-17 01:44] VITALS: BP 160/98; BP 176/88; PULSE 92; PULSE 96; RESP 18; TEMP 37.4; O2SAT 95; O2SAT 97; BMI 36.2
--- NOTE | 2024-07-17 02:01 | ECG_ITS ---
Test Reason : ABD PAIN Blood Pressure : */* mmHG Vent. Rate : 88 BPM Atrial Rate : 88 BPM P-R Int : 164 ms QRS Dur : 88 ms QT Int : 402 ms P-R-T Axes : 74 -2 39 degrees QTcB Int : 486 ms Sinus rhythm with Premature atrial complexes Cannot rule out Inferior infarct , age undetermined Abnormal ECG When compared with ECG of 25-Jun-2024 15:47, Premature atrial complexes are now Present DC interval has decreased Referred By: Generic ED Physician Electronically Signed By: GIOVANY LANGSTON MD
[2024-07-17 02:17] LABS: MANUAL DIFF FLAG NO
[2024-07-17 02:21] LABS: Basophils Percent Auto 0.2 % (0-2); Eosinophils Absolute Auto 0.1 X10*3/uL (0.0-0.4); Eosinophils Percent Auto 0.6 % (0-4); Hematocrit 34.4 % (37.0-47.0); Hemoglobin 11.9 g/dl (12.0-16.0); Imm Gran Abs Auto 0.04 X10*3/uL (0.00-0.03); Imm Gran Pct Auto 0.5 % (0.0-0.4); Lymphocytes Absolute Auto 0.9 X10*3/uL (1.2-4.9); Lymphocytes Percent Auto 10.2 % (20-40); Mean Corpuscular HGB Conc 34.6 g/dl (31.0-35.0); Mean Corpuscular Volume 86.6 fL (80.0-98.0); Mean Platelet Volume 9.3 fL (9.4-12.3); Monocytes Absolute Auto 0.5 X10*3/uL (0.1-1.2); Monocytes Percent Auto 6.2 % (2-11); Neutrophils Absolute Auto 7.1 x10*3/uL (2.0-8.3); Neutrophils Percent Auto 82.3 % (45-73); Platelet Count 138 X10*3/uL (160-400); Red Blood Count 3.97 X10*6/uL (4.20-5.50); Red Cell Distribution Width 12.7 % (11.0-16.0); White Blood Count 8.6 X10*3/uL (4.8-10.8)
[2024-07-17 02:39] LABS: Troponin-I High Sensitivity 8.6 ng/L (<3.5-17.0)
[2024-07-17 02:43] LABS: Alanine Aminotransferase 9 U/L (0-31); Albumin Level 4.1 g/dL (3.5-5.0); Alkaline Phosphatase 81 U/L (39-117); Anion Gap 15 (12-20); Aspartate Amino Transferase 20 U/L (5-31); Bilirubin Total 0.5 mg/dL (0.0-1.0); Blood Urea Nitrogen 15 mg/dL (9-16); Carbon Dioxide 20 mmol/L (22-29); Chloride 108 mmol/L (96-108); Estimated Glomerular Filt Rate > 60; Glucose Random 124 mg/dL (60-115); Lipase 10 U/L (8-78); Potassium 3.7 mmol/L (3.3-5.1); Sodium 139 mmol/L (135-145); Total Protein 7.6 g/dL (6.5-8.0)
--- OUTSIDE RECORDS SUMMARY | 2024-07-17 02:44 | XMS_ITS | Clinical Summary ---
Author Organization [facility] Address [address] [place] [address] Phone Care Team Providers Care Hospitalist Program Director Name Role Phone Drew Marc MD Primary Care Provider + Allergies Active Allergy Reactions Criticality Noted Date Comments [place] Rash Low 05/29/2022 Hydrocodone Other (see comments) [...] 09/15/2020 Active ergocalciferol (VITAMIN D2) 1.25 MG (74632 UT) capsule Take 1 capsule by mouth [...] this topic Insurance [place] [address] * Guarantor: Sarah Dash Account Type Relation to Patient Date of Phone Billing Address Personal/Family Self 1955 [address] [place] [address] [place] [address] Care Teams Hospitalist Program Director Relationship Specialty Start Date End Date Drew Marc MD [facility] [address] [place] [address] [address] PCP - General 09/20/20
--- OUTSIDE RECORDS SUMMARY | 2024-07-17 02:44 | XMS_ITS | Clinical Summary ---
Author Organization [address] [place] [address] Address [address] [place] [address] Phone Care Team Providers Care Dowel Pin Man Name Role Phone Drew Marc MD Primary Care Provider +1- [phone] Allergies Active Allergy Reactions Criticality Noted Date Comments [place] Rash Low 05/29/2022 Hydrocodone Other 09/20/2020 Hydrocodone-Acetaminophen [...] Type Department Care Team Description 07/15/[address] [phone] Lyly Hampton LCSW Multiple Sclerosis (/) 07/07/2024 3:30 PM EST Office Visit [facility] [address] [facility] [address] [place] [address] Estephania Anaya PA Frontotemporal dementia (CMS/HCC) (Primary Dx) 05/12/2024 3:00 PM EST Office Visit [facility] [address] [facility] [address] [place] [address] Estephania Anaya PA Multiple sclerosis (CMS/HCC) (Primary Dx) 05/04/[address] [place] [address] Estephania Anaya PA from Last [...] Description 10/13/2024 3:30 PM EDT Office Visit [facility] [address] [place] [address] Danelle Grant MD [address] [place] [address] Health Maintenance Due Date Last [...] Recently Relevant to Health Maintenance Care Teams Dowel Pin Man Relationship Specialty Start Date End Date Drew Marc MD [facility] [address] [place] [address] [address] [place] [address] PCP - General Internal Medicine 08/10/20
--- OUTSIDE RECORDS SUMMARY | 2024-07-17 02:44 | XMS_ITS | Encounter Summary ---
Author Organization [facility] Address [address] [place] [address] Care Team Providers Care Instrument And Controls Technician Name Role Phone Drew Marc MD Primary Care Provider +1- [phone] Reason for Visit * Reason Onset Date Comments Multiple Sclerosis 07/15/2024 Encounter Details Date Type Department Care Team (Late st Contact Info) Description 07/15/[address] [facility] [address] [phone] Lyly De Jesus LCSW Multiple Sclerosis (/) [...] Description 10/13/2024 3:30 PM EDT Office Visit [facility] [address] [place] [address] Danelle Grant MD [address] [facility] [address] [place] [address] documented as of this encounter Visit Diagnoses Not on filedocumented in this encounter Care Teams Instrument And Controls Technician Relationship Specialty Start Date End Date Drew Marc MD [address] [place] [address] PCP - General Internal Medicine 08/10/20 documented as of this encounter
--- OUTSIDE RECORDS SUMMARY | 2024-07-17 02:44 | XMS_ITS | Encounter Summary ---
Author Organization [facility] Address [address] [place] [address] Care Team Providers Care Nuclear Monitoring Technician Name Role Phone Drew Marc MD Primary Care Provider +1- [phone] Reason for Referral * Consultation (Routine) - Pending Review Specialty Diagnoses / Procedures Referred By Donna stewart Referred To Contact Neurology Diagnoses Frontotemporal dementia (CMS/HCC) Estephania Anaya PA [address] [facility] [place], [place] [address] Referral ID Status Reason Start Date Expiration Date Visits Requested Visits Authorized [id number] Pending Review Specialty Services Required 07/08/2024 07/08/2025 1 1 Scheduling Instructions Please refer to dementia specialist at [facility] for evaluation of dementia-has been told she has frontotemporal dementia. Patient also has diagnosis of MS Encounter Details Date Type Department Care Team (Latest Contact Info) Description 07/07/2024 3:30 PM EST Office Visit [facility] - [address] [place] [address] Estephania Anaya PA [address] [place] [address] for [place] [address] Frontotemporal dementia (CMS/HCC) (Primary Dx) Social History [...] RICHIE Haynes - 07/07/2024 3:30 PM EST [facility] CC: MS [...] states that she is working with her loan operations manager (Esvin Milian) regarding this. Reporting significant joint pain, [...] Disp: , Rfl: ergocalciferol (VITAMIN D2) capsule 09043 units, TAKE 1 CAPSULE BY MOUTH ONE [...] a referral to a dementia specialist at [facility] for further evaluation. She continues with her regular care team including psychiatry (Esvin Milian), nephrology (Dr. Godoy), cardiology, orthopedics, and PCP. To address concerns of home safety and questions regarding resources for assistance, I will reach out to our family welfare social work professor Lyly and ask her to contact patient's [...] Milian) Low back pain: Continue following with [place] pain management Cervical disc disease/lumbar disc disease: [...] 90 minutes. The majority of the actual [id number] visit was spent counseling the patient with respect to the current neurological picture. Estephania Anaya PA-C documented in this encounter Plan of Treatment Upcoming Encounters Date Type Department Care Team (Late st Contact Info) Description 10/13/2024 3:30 PM EDT Office Visit [facility] [address] [facility] [address] [place] [address] Danelle Grant MD [address] [facility] [address] [place] [address] Scheduled Referrals Name Type Priority Associated Diagnoses Order Schedule Ambulatory referral to Neurology Outpatient Referral Routine Frontotemporal dementia (CMS/HCC) 1 Occurrences starting 07/08/2024 until 07/08/2025 documented as of this encounter Visit Diagnoses Diagnosis Frontotemporal dementia ([facility]/HCC)- Primary documented in this encounter Discontinued Medications [...] 11/21/2022 added in this encounter Care Teams Nuclear Monitoring Technician Relationship Specialty Start Date End Date Drew Marc MD [facility] [address] [place] [address] [address] [place] [address] PCP - General Internal Medicine 08/10/20 documented as of this encounter
[2024-07-17 02:57] LABS: Influenza A PCR NEGATIVE (Negative); Influenza B PCR NEGATIVE (Negative); Resp Syncy Virus RNA Qual PCR NEGATIVE (Negative); SARS COV2 PCR INHOUSE NEGATIVE (Negative)
[2024-07-17] MEDS: LORazepam 2 MG/ML VIAL 0.25 MG IVPUSH (04:17)
--- NOTE | 2024-07-17 05:34 | PC.NURSE ---
pt incontinent of large volume of urine and green,soft stool. pt cleaned, eugenia care performed, barrier applied. repo'd to right side. call olson in reach. pt states I feel so much better, thank you.
[2024-07-17 05:36] VITALS: BP 158/87; PULSE 82; RESP 12; TEMP 37.1; O2SAT 96
--- NOTE | 2024-07-17 07:27 | ED_ITS ---
HPI - General Adult General Chief complaint: Nausea/Vomiting/Diarrhea Stated complaint: GENERAL SICKNESS Time Seen by Provider: 07/17/24 06:41 Source: patient and EMS Mode of arrival: EMS Limitations: other (History is somewhat limited by patient being a poor historian) History of Present Illness ED Provider: RICHIE Roth HPI narrative: This is a 68-year-old female past medical history significant for alcohol abuse, hypertension, CKD, anxiety, SVT, multiple sclerosis, chronic pain syndrome, depression presenting to the emergency department with multiple complaints. She tells me she has been feeling dizzy for the last few days, she describes it as room spinning and worse with positional changes. She reports this has never happened to her before. She is also complaining of nausea, vomiting, diarrhea and some epigastric abdominal discomfort ongoing for the past 2 days. She reports each time she eats something she their throws up or has diarrhea. He tells me she feels overall unwell. Denies recent sick contacts. Denies changes in dietary habits. She denies fevers, chills, chest pain, shortness of breath, vision changes, weakness, falls or trauma. NIHSS-0 Related Data Home Medications ?Medication ?Instructions ?Recorded ?Confirmed ergocalciferol (vitamin D2) 1,250 1,250 mcg PO QWEEK 06/05/20 07/15/24 mcg (50,000 unit) capsule solifenacin 10 mg tablet (Vesicare) 10 mg PO DAILY 07/25/23 07/15/24 sertraline 100 mg tablet 200 mg PO DAILY 10/09/23 07/15/24 quetiapine 100 mg tablet 100 mg PO BEDTIME 12/31/23 07/15/24 Previous Rx's ?Medication ?Instructions ?Recorded baclofen 10 mg tablet 10 mg PO BEDTIME #0 tabs 06/28/24 baclofen 10 mg tablet 10 mg PO BID #180 tabs 07/01/24 folic acid 1 mg tablet 1 mg PO DAILY #90 tabs 07/01/24 lorazepam 0.5 mg tablet 0.25 mg (1/2 x 0.5 mg) PO BID PRN 07/01/24 anxiety #20 tabs metoprolol tartrate 25 mg tablet 25 mg PO BID #180 tabs 07/01/24 multivitamin 1 tab PO DAILY #90 tabs 01/09/25 oxcarbazepine 300 mg tablet 300 mg PO BID #180 tabs 07/01/24 prednisone 20 mg tablet 40 mg (2 x 20 mg) PO DAILY #6 tabs 07/01/24 thiamine HCl (vitamin B1) 100 mg 100 mg PO DAILY #90 tabs 07/01/24 tablet zolpidem 5 mg tablet (Ambien) 5 mg PO BEDTIME PRN insomnia #20 07/01/24 tabs oxycodone 5 mg tablet 5 mg PO BID PRN pain #60 tabs 07/07/24 Allergies Allergy/AdvReac Type Severity Reaction Status Date / Time prochlorperazine [Compazine] Allergy Severe Dystonic Verified 07/17/24 01:44 Reaction cobalt [COBALT] Allergy Intermediate RASH Verified 07/17/24 01:44 hydrocodone [Vicodin] Allergy Intermediate Nausea and Verified 07/17/24 01:44 Vomiting nickel [NICKEL] Allergy Intermediate RASH Verified 07/17/24 01:44 ondansetron [Zofran] Allergy Intermediate Hives Verified 07/17/24 01:44 morphine AdvReac Intermediate Nausea and Verified 07/17/24 01:44 Vomiting Review of Systems 2 Review of Systems: Yes all other systems are reviewed and are negative PMFSH Past Medical History Attestation statement: The following information was validated with the patient. Source: old records reviewed and nursing notes reviewed Medical History Hypertension Urinary incontinence Anxiety Anxiety COVID-19 Osteoarthritis of right knee Essential hypertension SVT (supraventricular tachycardia) Depression History of kidney problems Paroxysmal SVT (supraventricular tachycardia) History of confusion Urgency of micturition Memory difficulties Arthritis History of dysphagia Multiple sclerosis GERD (gastroesophageal reflux disease) Anxiety Pain syndrome, chronic Disc degeneration, lumbar 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, bilateral Surgical History Hx of hysterectomy History of surgery on left wrist Deficient knowledge of leg surgery History of rotator cuff surgery History of left knee surgery History of myomectomy History of appendectomy Family History Family History Mother Diabetes Kidney failure Father AAA (abdominal aortic aneurysm, ruptured) Family/Other Mental health disorder Substance use disorder Social History Social History Household Members: Unknown / Unable to assess Housing: House Are you a primary urgent care technician to a significant other at home: No Unable to assess alcohol history related to: Unable to respond Alcohol intake: current Alcohol intake frequency: former alcohol drinker Alcohol type: wine Comment: Tolerable right knee pain per pt. Patient Tobacco Use Status: Never used Tobacco Smoked in Last 30 Days: No e-Cigarette/Vaping Use: Never Used Second Hand Smoke Exposure: No Advance Directives: No Advance Directives Information Provided: Yes Advance Directives Date on File: 05/16/21 Do you have a plan to hurt others: No Plan service: No Current occupational status: retired and disabled Cognitive needs: Yes (walker) Hearing needs: No Vision needs: Yes (glasses) Physical Exam ED Vital Signs: Vital Signs - 24 hr 07/17/24 01:44 07/17/24 05:36 Temperature 99.4 F 98.8 F Pulse Rate 92 82 Respiratory Rate 18 12 Blood Pressure 176/88 H 158/87 H Pulse Oximetry 95 96 Oxygen Delivery Method Room Air Room Air BMI result Body Mass Index 36.2 vss Appearance: Alert.? Oriented X3.? No acute distress.? Head: Normocephalic, atraumatic, no step-offs or deformities Eyes: Pupils equal, round and reactive to light.? CVS: Normal heart rate and rhythm.? Pulses normal.? Respiratory: No respiratory distress.? Breath sounds normal.? Abdomen: Soft and diffuse discomfort to abdominal region .? Skin: Skin warm and dry.? Normal skin color.? Normal skin turgor.? Extremities: No lower extremity edema.? No calf ttp. Global weakness Neuro: Oriented X 3.? No motor deficit.? No sensory deficit. CN 2-12 intact Course Reevaluation(s) Reevaluation #1: Patient's CBC with a normocytic anemia appears to be around her baseline. Chemistry with no acute findings requiring intervention. No signs of clinical dehydration. Patient's UA, imaging pending at this time as well as GI panel Time: 07:42 Reevaluation #2: UA is still pending. CT abdomen and pelvis with few fluid-filled mostly prominent loops of bowel in the left abdomen not dilated by size criteria reflecting enteritis or ileus early obstruction can not be excluded. There is also mild haziness and stranding of the small bowel mesentery ? reactive. Will add attenuation in the colon and rectosigmoid junction reflecting loose stool/diarrhea. Will discuss this case with surgery. Patient not tolerating p.o.. Time: 12:17 Reevaluation #3: Per surgery Dr. Wisdom IVF resuscitation & ice chips for now. No need for NGT. Plan for hospital admission as she is not tollerating PO contiues to feel dizz and unable to ambultate Time: 13:00 Additional Reevaluation(s): Discussed case with hospitalist, patient will be admitted for further evaluation. CTA negative Medications Administered Discontinued Medications Generic Name Dose Route Start Last Admin Trade Name Freq PRN Reason Stop Dose Admin Lorazepam 0.25 mg 07/17/24 04:11 07/17/24 04:17 Lorazepam 2 Mg/Ml Vial IVPUSH 07/17/24 04:12 0.25 mg ONCE ONE Administration Meclizine HCl 25 mg 07/17/24 07:30 07/17/24 07:39 Meclizine Hcl 25 Mg Tablet PO 07/17/24 07:31 25 mg ONCE ONE Administration Medical Decision Making Medical Decision Making [facility] Narrative: 68-year-old female presents with multiple complaints including dizziness, nausea, vomiting, diarrhea, abdominal pain ongoing for about 2 days. Physical exam global weakness, diffuse abdominal discomfort. No focal neuro deficits. NIH stroke scale 0 History and physical exam concerning for viral illness with likely metabolic alkalosis or volume depletion secondary to nausea, vomiting, diarrhea. Unlikely intra-abdominal etiologies no signs of acute abdomen, cholecystitis, appendicitis, pancreatitis, diverticulitis. Dizziness likely BPPV secondary to dehydration/volume depletion from GI losses, unlikely posterior stroke, stroke, intracranial hemorrhage. No signs of dissection. Plan labs, imaging, urine, GI panel, viral testing Differential Diagnosis Differential Diagnoses: The differential diagnosis associated with the presentation includes (History and physical exam concerning for viral illness with likely metabolic alkalosis or volume depletion secondary to nausea, vomiting, diarrhea. Unlikely intra-abdominal etiologies no signs of acute abdomen, cholecystitis, appendicitis, pancreatitis, diverticulitis. Dizziness likely BPPV second) Admission/Observation Consideration of admission/observation: Escalation of care including admission/observation considered Consult Healthcare Provider Management of the patient was discussed with: Delivery Rep (General surgery ) Lab Data [facility] Lab Attestation statement: I reviewed the patient's lab results. 07/17/24 02:13 07/17/24 02:13 Labs: Lab Results 07/17/24 07/17/24 Range/Units 02:13 07:35 WBC 8.6 (4.8-10.8) X10*3/uL RBC 3.97 L D (4.20-5.50) X10*6/uL Hgb 11.9 L D (12.0-16.0) g/dl Hct 34.4 L (37.0-47.0) % MCV 86.6 (80.0-98.0) fL MCH 30.0 (27.0-33.0) pg MCHC 34.6 (31.0-35.0) g/dl RDW 12.7 (11.0-16.0) % Plt Count 138 L (160-400) X10*3/uL MPV 9.3 L (9.4-12.3) fL Immature Gran % (Auto) 0.5 H (0.0-0.4) % Neut % (Auto) 82.3 H (45-73) % Lymph % (Auto) 10.2 L (20-40) % [place] % (Auto) 6.2 (2-11) % Eos % (Auto) 0.6 (0-4) % Baso % (Auto) 0.2 (0-2) % Lymph # (Auto) 0.9 L (1.2-4.9) X10*3/uL [place] # (Auto) 0.5 (0.1-1.2) X10*3/uL Eos # (Auto) 0.1 (0.0-0.4) X10*3/uL Baso # (Auto) 0.0 (0.0-0.2) X10*3/uL Abs Immat Gran (auto) 0.04 H (0.00-0.03) X10*3/uL Absolute Neuts (auto) 7.1 (2.0-8.3) x10*3/uL Absolute Nucleated RBC 0.000 (0.0-0.012) X10*3/uL Nucleated RBC % (auto) 0.0 (0.0-0.2) /100WBC Sodium 139 (135-145) mmol/L Potassium 3.7 (3.3-5.1) mmol/L Chloride 108 (96-108) mmol/L Carbon Dioxide 20 L (22-29) mmol/L Anion Gap 15 (12-20) BUN 15 (9-16) mg/dL Creatinine 0.87 (0.5-1.4) mg/dL Estim Creat Clear Calc 70.0 Estimated GFR > 60 Random Glucose 124 H (60-115) mg/dL Calcium 9.0 D (8.4-10.2) mg/dL Total Bilirubin 0.5 (0.0-1.0) mg/dL AST 20 (5-31) U/L ALT 9 (0-31) U/L Alkaline Phosphatase 81 (39-117) U/L Troponin I High Sens 8.6 D (<3.5-17.0) ng/L Total Protein 7.6 (6.5-8.0) g/dL Albumin 4.1 (3.5-5.0) g/dL Lipase 10 (8-78) U/L C. difficile Tox B Gene NEGATIVE (Negative) Influenza Type A (PCR) NEGATIVE (Negative) Influenza Type B (PCR) NEGATIVE (Negative) RSV RNA Qual (PCR) NEGATIVE (Negative) SARS-CoV-2 RNA (RT-PCR) NEGATIVE (Negative) Independent Interpretation I performed an independent interpretation of an: CT Scan (IMPRESSION: 1. Unremarkable head CT. 2. Patent head and neck CTA. Scattered areas of atherosclerotic calcifications are noted without significant area of stenosis. 3. There is a possible 1.9 cm right thyroid nodule, consider correlation with a nonemergent dedicated thyroid ultrasound.) Interpretation: IMPRESSION: 1. Few fluid-filled mildly prominent loops of bowel in the left abdomen, not dilated by size criteria, possibly reflecting enteritis or ileus. Early obstruction not excluded. Close clinical follow-up recommended. 2. Mild haziness/stranding of the small bowel mesentery with some prominent though nonenlarged by size criteria small bowel mesenteric lymph nodes, nonspecific and possibly reactive. 3. Fluid attenuation in the colon and rectosigmoid junction, may reflect loose stool/diarrhea. 4. Scattered colonic diverticula without diverticulitis. 5. Mild wall thickening of the urinary bladder, possibly related to underdistention though correlate with urinalysis to exclude cystitis. 6. Additional findings as described. Radiology Impression Discussion of test interpretation with radiology: I have reviewed the radiologist's reading. External Record Review External record reviewed: Inpatient record, Office record, Outpatient record, Prior outpatient labs, Prior outpatient radiology, Primary care record and Outside ED record Chronic Conditions Patient?s care impacted by: Other Critical Care Time Critical Care Time Critical Care Time: Yes Total Critical Care Time: 35 Attestation: I attest to this time spent taking care of the patient, obtaining history, physical, reviewing labs, imaging, treatment of patients condition +/- specialist/hospitalist consult Discharge Plan Discharge Clinical Impression: Anxiety, Dizziness, Nausea & vomiting, Diarrhea, Abdominal pain Patient Disposition: Admitted As Inpatient Prescriptions: No Action oxycodone 5 mg tablet 5 mg PO BID PRN (Reason: pain) Qty: 60 0RF Rx Instructions: Partial Fill upon patient request. baclofen 10 mg Tablet 10 mg PO BEDTIME Qty: 0 0RF metoprolol tartrate 25 mg tablet 25 mg PO BID Qty: 180 0RF baclofen 10 mg tablet 10 mg PO BID Qty: 180 0RF zolpidem [Ambien] 5 mg tablet 5 mg PO BEDTIME PRN (Reason: insomnia) Qty: 20 0RF folic acid 1 mg tablet 1 mg PO DAILY Qty: 90 0RF multivitamin Tablet 1 tab PO DAILY Qty: 90 0RF lorazepam 0.5 mg tablet 0.25 mg PO BID PRN (Reason: anxiety) Qty: 20 0RF thiamine HCl (vitamin B1) 100 mg tablet 100 mg PO DAILY Qty: 90 0RF oxcarbazepine 300 mg tablet 300 mg PO BID Qty: 180 0RF Rx Instructions: TAKE 1 TABLET BY MOUTH TWICE A DAY WITH 150 MG TABLET FOR TOTAL DOSE = 450 MG. prednisone 20 mg tablet 40 mg PO DAILY Qty: 6 0RF sertraline 100 mg tablet 200 mg PO DAILY quetiapine 100 mg tablet 100 mg PO BEDTIME ergocalciferol (vitamin D2) 1,250 mcg (50,000 unit) capsule 1,250 mcg PO QWEEK solifenacin [Vesicare] 10 mg tablet 10 mg PO DAILY Print Language: [place]
[2024-07-17] MEDS: Meclizine HCl 25 MG TABLET PO (07:39)
[2024-07-17 08:37] LABS: CDiff Gene PCR NEGATIVE (Negative)
[2024-07-17 12:43] LABS: Ethanol < 10 mg/dL
[2024-07-17] MEDS: 0.9 % Sodium Chloride 1,000 ML 999 ML IV (13:51)
--- NOTE | 2024-07-17 14:14 | PM.IMHP ---
History of Present Illness Date of Service: 07/17/24 Chief Complaint: nausea, vomiting, diarrhea 68 yo F with MS previously on ocrelizumab but no longer due to rash, HTN, SVT, and frontotemporal dementia presenting with 1-day history of severe nausea, non-bloody and non-bilious vomiting, and non-bloody watery diarrhea. Describes upper abdominal pain on both sides that is moderate in intensity. Multiple sick contacts in the building where she lives. No recent antibiotic treatment. She also states that she has had dizziness, which she describes as vertigo, that started during her last admission here, which was from 06/15/24-06/28/24 for acute encephalopathy, KATIANA, and rhabdomyolysis. ED workup included a CT of the head, which was unremarkable; a patent head and neck CTA with scattered atherosclerosis and a known right thyroid nodule; and abdominopelvic CT with fluid-filled mildly prominent loops of bowel in the left abdomen, as well as mild stranding of the small bowel mesentery. Electrlytes normal. C difficile toxin negative. Review of Systems Review of Systems: Yes all other systems are reviewed and are negative [facility] Medical History Hypertension Urinary incontinence Anxiety Anxiety COVID-19 Osteoarthritis of right knee Essential hypertension SVT (supraventricular tachycardia) Depression History of kidney problems Paroxysmal SVT (supraventricular tachycardia) History of confusion Urgency of micturition Memory difficulties Arthritis History of dysphagia Multiple sclerosis GERD (gastroesophageal reflux disease) Anxiety Pain syndrome, chronic Disc degeneration, lumbar 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, bilateral Family History Mother Diabetes Kidney failure Father AAA (abdominal aortic aneurysm, ruptured) Family/Other Mental health disorder Substance use disorder Surgical History Hx of hysterectomy History of surgery on left wrist Deficient knowledge of leg surgery History of rotator cuff surgery History of left knee surgery History of myomectomy History of appendectomy Social History Household Members: Unknown / Unable to assess Housing: House Are you a primary healthcare advisory services manager to a significant other at home: No Unable to assess alcohol history related to: Unable to respond Alcohol intake: current Alcohol intake frequency: former alcohol drinker Alcohol type: wine Comment: Tolerable right knee pain per pt. Patient Tobacco Use Status: Never used Tobacco Smoked in Last 30 Days: No e-Cigarette/Vaping Use: Never Used Second Hand Smoke Exposure: No Advance Directives: No Advance Directives Information Provided: Yes Advance Directives Date on File: 05/16/21 Do you have a plan to hurt others: No Plan service: No Current occupational status: retired and disabled Cognitive needs: Yes (walker) Hearing needs: No Vision needs: Yes (glasses) Meds Allergies Allergy/AdvReac Type Severity Reaction Status Date / Time prochlorperazine [Compazine] Allergy Severe Dystonic Verified 07/17/24 01:44 Reaction cobalt [COBALT] Allergy Intermediate RASH Verified 07/17/24 01:44 hydrocodone [Vicodin] Allergy Intermediate Nausea and Verified 07/17/24 01:44 Vomiting nickel [NICKEL] Allergy Intermediate RASH Verified 07/17/24 01:44 ondansetron [Zofran] Allergy Intermediate Hives Verified 07/17/24 01:44 morphine AdvReac Intermediate Nausea and Verified 07/17/24 01:44 Vomiting Home Medications ?Medication ?Instructions ?Recorded ?Confirmed ?Last Taken ?Type ergocalciferol (vitamin D2) 1,250 1,250 mcg PO BROWN@0900 06/05/20 07/17/24 Unknown History mcg (50,000 unit) capsule solifenacin 10 mg tablet (Vesicare) 10 mg PO DAILY 07/25/23 07/17/24 07/15/24 History sertraline 100 mg tablet 200 mg PO DAILY 10/09/23 07/17/24 07/15/24 History quetiapine 100 mg tablet 100 mg PO BEDTIME 12/31/23 07/17/24 07/15/24 History lorazepam 0.5 mg tablet 0.5 mg PO BID PRN anxiety 07/17/24 07/17/24 Unknown History metoprolol tartrate 25 mg tablet 37.5 mg PO BID 07/17/24 07/17/24 07/15/24 History omeprazole 20 mg capsule,delayed 20 mg PO BID@0630,1630 07/17/24 07/17/24 07/15/24 History release oxcarbazepine 150 mg tablet 150 mg PO BID 07/17/24 07/17/24 07/15/24 History prazosin 1 mg capsule 1 mg PO BEDTIME 07/17/24 07/17/24 07/15/24 History zolpidem 10 mg tablet 10 mg PO BEDTIME PRN Insomnia 07/17/24 07/17/24 Unknown History Physical Exam Vital Signs and Narrative: Vital Signs: Last Vital Signs Temp 98.8 F 07/17/24 05:36 Pulse 82 07/17/24 05:36 Resp 12 07/17/24 05:36 BP 158/87 H 07/17/24 05:36 Pulse Ox 96 07/17/24 05:36 O2 Del Method Room Air 07/17/24 05:36 BMI result Body Mass Index 36.2 Gen: in no acute distress HEENT: sclera anicteric, moist mucus membranes Neck: supple Lungs: clear to auscultation bilaterally Heart: regular rate and rhythm, no murmurs Abd: soft, mild bilateral upper abdomen tenderness without rebound, non-distended Ext: no edema Skin: warm/well-perfused Neuro: alert and oriented x3, generalized weakness Psych: appropriate affect Results Labs 07/17/24 02:13 07/17/24 02:13 Labs: Laboratory Results - last 24 hr 07/17/24 07/17/24 02:13 07:35 MCV 86.6 MCH 30.0 MCHC 34.6 RDW 12.7 Plt Count 138 L MPV 9.3 L Immature Gran % (Auto) 0.5 H Neut % (Auto) 82.3 H Lymph % (Auto) 10.2 L [place] % (Auto) 6.2 Eos % (Auto) 0.6 Baso % (Auto) 0.2 Lymph # (Auto) 0.9 L [place] # (Auto) 0.5 Eos # (Auto) 0.1 Baso # (Auto) 0.0 Abs Immat Gran (auto) 0.04 H Absolute Neuts (auto) 7.1 Absolute Nucleated RBC 0.000 Nucleated RBC % (auto) 0.0 Anion Gap 15 Estim Creat Clear Calc 70.0 Estimated GFR > 60 Random Glucose 124 H Calcium 9.0 D Total Bilirubin 0.5 AST 20 ALT 9 Alkaline Phosphatase 81 Troponin I High Sens 8.6 D Total Protein 7.6 Albumin 4.1 Lipase 10 Ethyl Alcohol < 10 C. difficile Tox B Gene NEGATIVE Influenza Type A (PCR) NEGATIVE Influenza Type B (PCR) NEGATIVE RSV RNA Qual (PCR) NEGATIVE SARS-CoV-2 RNA (RT-PCR) NEGATIVE Imaging Radiologist's Impressions: CT A/P 07/17/24 1. Few fluid-filled mildly prominent loops of bowel in the left abdomen, not dilated by size criteria, possibly reflecting enteritis or ileus. Early obstruction not excluded. Close clinical follow-up recommended. 2. Mild haziness/stranding of the small bowel mesentery with some prominent though nonenlarged by size criteria small bowel mesenteric lymph nodes, nonspecific and possibly reactive. 3. Fluid attenuation in the colon and rectosigmoid junction, may reflect loose stool/diarrhea. 4. Scattered colonic diverticula without diverticulitis. 5. Mild wall thickening of the urinary bladder, possibly related to underdistention though correlate with urinalysis to exclude cystitis. 6. Additional findings as described. head/neck CTA 07/17/[address] 2. Patent head and neck CTA. Scattered areas of atherosclerotic calcifications are noted without significant area of stenosis. 3. There is a possible 1.9 cm right thyroid nodule, consider correlation with a nonemergent dedicated thyroid ultrasound. Assessment and Plan (1) Enteritis: Status: Acute Plan 68 yo F with MS previously on ocrelizumab but no longer due to rash, HTN, SVT, and frontotemporal dementia presenting acute nausea, vomiting, diarrhea, and abdominal pain for the past day, found to have dilated loops of bowel concerning for enteritis or ileus. enteritis vs ileus - admit to med/surg; give IV fluids; stool GI PCR panel; clear liquid diet; less likely SBO but will consult Gen Surg; monitor electrlytes dizziness/vertigo - Neurology consult; PT evaluation HTN SVT - continue metoprolol succinate mood disorder - continue sertraline, quetiapine, prazosin, lorazepam chronic pain - continue oxycodone muscle spasm - continue oxcarbazepine, baclofen OAB - solifenacin VTE ppx - enoxaparin dispo - TBD code - full I anticipate that the patient will stay at least 2 midnights as an inpatient in the hospital due to the above reasons. It is neither reasonable nor safe to care for them in a less acute setting. Quality Stroke Does the patient have a stroke diagnosis?: No VTE Prior VTE?: No VTE Risk Level:: Medical - moderate - high VTE Device Contraindication: N/A - Device Ordered VTE Drug Contraindication: N/A - Med Ordered
[2024-07-17 14:21] LABS: C Reactive Protein 3.06 mg/dL (< or = 0.50)
[2024-07-17] MEDS: Lactated Ringers 1,000 ML 125 ML IVCONT ×2 (14:48→23:04)
[2024-07-17 15:08] VITALS: BP 168/77; PULSE 80; RESP 12; TEMP 36.8; O2SAT 99
--- NOTE | 2024-07-17 15:22 | PHA.MEDREC ---
Pharmacy Consult ? Medication Reconciliation Pharmacy has completed the medication reconciliation. Spoke to the pt to confirm meds.
[2024-07-17] MEDS: LORazepam 0.5 MG TABLET PO (16:55)
[2024-07-17] MEDS: Omeprazole 20 MG CAPSULE.DR PO (16:55)
[2024-07-17] MEDS: oxyCODONE HCl Immed Release 5 MG TABLET PO (16:55)
[2024-07-17 18:47] VITALS: BP 172/80; PULSE 76; RESP 16; TEMP 36.7; O2SAT 98
--- NOTE | 2024-07-17 18:48 | MHC.EDTECH ---
pt refused dinner tray at this time
[2024-07-17 22:00] VITALS: BP 181/85; PULSE 76; RESP 18; O2SAT 98
[2024-07-17] MEDS: Baclofen 10 MG TABLET PO ×2 (22:59→23:00)
[2024-07-17] MEDS: OXcarbazepine 150 MG TABLET PO (22:59)
[2024-07-17] MEDS: OXcarbazepine 300 MG TABLET PO (23:00)
[2024-07-17] MEDS: Metoprolol Tartrate 12.5 MG HALFTAB 37.5 MG PO (23:00)
[2024-07-17] MEDS: QUEtiapine Fumarate 100 MG TABLET PO (23:00)
[2024-07-17] MEDS: Prazosin HCL 1 MG CAPSULE PO (23:00)
[2024-07-17 23:56] VITALS: BMI 35.0
[2024-07-17 23:57] VITALS: BP 137/70; PULSE 79; RESP 18; TEMP 36.4; O2SAT 96
[2024-07-18 03:01] VITALS: BP 122/66; PULSE 78; RESP 18; TEMP 36.1; O2SAT 97
[2024-07-18] MEDS: Lactated Ringers 1,000 ML 125 ML IVCONT ×3 (05:32→20:25)
[2024-07-18] MEDS: Omeprazole 20 MG CAPSULE.DR PO ×2 (05:32→15:53)
[2024-07-18] MEDS: oxyCODONE HCl Immed Release 5 MG TABLET PO ×2 (05:34→18:01)
[2024-07-18] MEDS: LORazepam 0.5 MG TABLET PO ×2 (05:55→18:01)
[2024-07-18 08:04] VITALS: BP 147/67; PULSE 66; RESP 18; TEMP 36.1; O2SAT 97
[2024-07-18 08:12] LABS: Hematocrit 33.2 % (37.0-47.0); Mean Corpuscular HGB Conc 33.1 g/dl (31.0-35.0); Mean Corpuscular Hemoglobin 29.6 pg (27.0-33.0); Mean Corpuscular Volume 89.5 fL (80.0-98.0); Mean Platelet Volume 10.2 fL (9.4-12.3); Platelet Count 116 X10*3/uL (160-400); Red Blood Count 3.71 X10*6/uL (4.20-5.50); White Blood Count 5.3 X10*3/uL (4.8-10.8)
[2024-07-18 08:21] LABS: Anion Gap 13 (12-20); Blood Urea Nitrogen 9 mg/dL (9-16); Calcium 8.3 mg/dL (8.4-10.2); Carbon Dioxide 22 mmol/L (22-29); Chloride 110 mmol/L (96-108); Creatinine Clr Calc Pharmacy 74.6; Estimated Glomerular Filt Rate > 60; Glucose Random 106 mg/dL (60-115); Potassium 3.6 mmol/L (3.3-5.1); Sodium 141 mmol/L (135-145)
[2024-07-18] MEDS: Tolterodine Tartrate LA 4 MG CAP.ER.24H PO (08:35)
[2024-07-18] MEDS: Sertraline HCL 100 MG TABLET 200 MG PO (08:35)
[2024-07-18] MEDS: Metoprolol Tartrate 12.5 MG HALFTAB 37.5 MG PO ×2 (08:35→20:26)
[2024-07-18] MEDS: OXcarbazepine 150 MG TABLET PO ×2 (08:35→20:27)
[2024-07-18] MEDS: OXcarbazepine 300 MG TABLET PO ×2 (08:35→20:27)
[2024-07-18] MEDS: Baclofen 10 MG TABLET PO ×3 (08:35→20:28)
[2024-07-18] MEDS: Ergocalciferol (Vitamin D2) 1,250 MCG CAPSULE 1250 MCG PO (08:35)
[2024-07-18] MEDS: Folic Acid 1 MG TABLET PO (08:35)
[2024-07-18] MEDS: Enoxaparin Sodium 40 MG/0.4 ML SYRINGE SUBCUT (08:36)
[2024-07-18] MEDS: 0.9 % Sodium Chloride Flush 3 ML SYRINGE IVFLUSH (08:36)
--- NOTE | 2024-07-18 10:35 | HO.PM.IMPN ---
Subjective Subjective Date of Service: 07/18/24 Interval History: f/u on n/v dizziness, overall is feeling better Physical Exam Vital Signs: Vital Signs: Last Vital Signs Temp 96.9 F 07/18/24 08:04 Pulse 66 07/18/24 08:04 Resp 18 07/18/24 08:04 BP 147/67 H 07/18/24 08:04 Pulse Ox 97 07/18/24 08:04 O2 Del Method Room Air 07/18/24 08:04 BMI result Body Mass Index 35.0 Const: Other: General: AO X 3, no acute distress Resp: CTA bilateral CVS: S1,S2,RRR GI: +BS, NT, no distention Skin: No rash Neuro: motor grossly intact Psych: appropriate affect Objective Data Active Medications Acetaminophen (Acetaminophen 325 Mg Tablet) 650 mg PO Q6H PRN PRN Reason: Pain, Mild 1-3,fever,headache Baclofen (Baclofen 10 Mg Tablet) 10 mg PO BID [facility] Last Admin: 07/18/24 08:35 Dose: 10 mg Documented By: RUBIN Baclofen (Baclofen 10 Mg Tablet) 10 mg PO BEDTIME [facility] Last Admin: 07/17/24 23:00 Dose: 10 mg Documented By: DITOLC Calcium Carbonate (Calcium Carbonate 750 Mg Tab.Chew) 750 mg PO Q4H PRN PRN Reason: Heartburn Enoxaparin Sodium (Enoxaparin Sodium 40 Mg/0.4 Ml Syringe) 40 mg SUBCUT Q24H [facility] Last Admin: 07/18/24 08:36 Dose: 40 mg Documented By: RUBIN Ergocalciferol (Ergocalciferol (Vitamin D2) 1,250 Mcg Capsule) 1,250 mcg PO BROWN@0900 [facility] Last Admin: 07/18/24 08:35 Dose: 1,250 mcg Documented By: RUBIN Folic Acid (Folic Acid 1 Mg Tablet) 1 mg PO DAILY [facility] Last Admin: 07/18/24 08:35 Dose: 1 mg Documented By: RUBIN Lactated Ringer's (Lr) 1,000 mls @ 125 mls/hr IVCONT .Q8H [facility] Last Admin: 07/18/24 05:32 Dose: 125 mls/hr Documented By: CASTILM Lorazepam (Lorazepam 0.5 Mg Tablet) 0.5 mg PO BID PRN PRN Reason: anxiety Last Admin: 07/18/24 05:55 Dose: 0.5 mg Documented By: NORAH Melatonin (Melatonin 3 Mg Tablet) 6 mg PO BEDTIME PRN PRN Reason: Insomnia Metoprolol Tartrate (Metoprolol Tartrate 12.5 Mg Halftab) 37.5 mg PO BID [facility]; Protocol Last Admin: 07/18/24 08:35 Dose: 37.5 mg Documented By: RUBIN Omeprazole (Omeprazole 20 Mg Capsule.Dr) 20 mg PO BID@0630,1630 [facility] Last Admin: 07/18/24 05:32 Dose: 20 mg Documented By: NORAH Oxcarbazepine (Oxcarbazepine 150 Mg Tablet) 150 mg PO BID [facility] Last Admin: 07/18/24 08:35 Dose: 150 mg Documented By: RUBIN Oxcarbazepine (Oxcarbazepine 300 Mg Tablet) 300 mg PO BID [facility] Last Admin: 07/18/24 08:35 Dose: 300 mg Documented By: RUBIN Oxycodone HCl (Oxycodone Hcl Immed Release 5 Mg Tablet) 5 mg PO BID PRN PRN Reason: Pain, Severe (Pain Scale 7-10) Last Admin: 07/18/24 05:34 Dose: 5 mg Documented By: NORAH Prazosin HCl (Prazosin Hcl 1 Mg Capsule) 1 mg PO BEDTIME [facility]; Protocol Last Admin: 07/17/24 23:00 Dose: 1 mg Documented By: ALFREDO Quetiapine Fumarate (Quetiapine Fumarate 100 Mg Tablet) 100 mg PO BEDTIME [facility] Last Admin: 07/17/24 23:00 Dose: 100 mg Documented By: ALFREDO Sertraline HCl (Sertraline Hcl 100 Mg Tablet) 200 mg PO DAILY [facility] Last Admin: 07/18/24 08:35 Dose: 200 mg Documented By: RUBIN Sodium Chloride (0.9 % Sodium Chloride Flush 3 Ml Syringe) [facility] Last Admin: 07/18/24 08:36 Dose: 3 ml Documented By: RUBIN Tolterodine Tartrate (Tolterodine Tartrate La 4 Mg Cap.Er.24h) 4 mg PO DAILY [facility] Last Admin: 07/18/24 08:35 Dose: 4 mg Documented By: RUBIN Zolpidem Tartrate (Zolpidem Tartrate 5 Mg Tablet) 5 mg PO BEDTIME PRN PRN Reason: Insomnia Labs 07/18/24 06:13 07/18/24 06:13 Labs: Laboratory Results - last 24 hr 07/17/24 07/18/24 02:13 06:13 MCV 89.5 MCH 29.6 MCHC 33.1 RDW 13.0 Plt Count 116 L MPV 10.2 Absolute Nucleated RBC 0.000 Nucleated RBC % (auto) 0.0 Anion Gap 13 Estim Creat Clear Calc 74.6 Estimated GFR > 60 Random Glucose 106 Calcium 8.3 L D C-Reactive Protein 3.06 H Ethyl Alcohol < 10 Assessment and Plan (1) Nausea & vomiting: Status: Acute (2) Enteritis: Status: Acute Plan 68 yo F with MS previously on ocrelizumab but no longer due to rash, HTN, SVT, and frontotemporal dementia presenting acute nausea, vomiting, diarrhea, and abdominal pain for the past day, found to have dilated loops of bowel concerning for enteritis or ileus. enteritis vs ileus, symptoms improved, advance diet, stool study pending, surgery consult pending dizziness/vertigo - Neurology consult; PT evaluation HTN SVT - continue metoprolol succinate mood disorder - continue sertraline, quetiapine, prazosin, lorazepam chronic pain - continue oxycodone muscle spasm - continue oxcarbazepine, baclofen OAB - solifenacin VTE ppx - enoxaparin dispo - TBD code - full Quality Stroke Does the patient have a stroke diagnosis?: No VTE Prior VTE?: No VTE Risk Level:: Medical - moderate - high VTE Device Contraindication: N/A - Device Ordered VTE Drug Contraindication: N/A - Med Ordered
--- NOTE | 2024-07-18 12:12 | PM.CNGS ---
History of Present Illness Consult details Consult date: 07/18/24 Narrative: 68 yo F with MS previously on ocrelizumab but no longer due to rash, HTN, SVT, and frontotemporal dementia presenting with 1-day history of severe nausea, non-bloody and non-bilious vomiting, and non-bloody watery diarrhea. Describes upper abdominal pain on both sides that is moderate in intensity. Multiple sick contacts in the building where she lives. No recent antibiotic treatment. She also states that she has had dizziness, which she describes as vertigo, that started during her last admission here, which was from 06/15/24-06/28/24 for acute encephalopathy, KATIANA, and rhabdomyolysis. CT scan was carried out in the emergency room and showed some distended small bowel mesenteric stranding in certain areas and some reactive lymph nodes which were more consistent with enteritis. There was no evidence of any obstruction and the patient was passing gas and having significant diarrhea earlier. Today she has been feeling much better no nausea no vomiting no diarrhea her abdomen feels more comfortable. PMFSH Past Medical History Medical History Hypertension Urinary incontinence Anxiety Anxiety COVID-19 Osteoarthritis of right knee Essential hypertension SVT (supraventricular tachycardia) Depression History of kidney problems Paroxysmal SVT (supraventricular tachycardia) History of confusion Urgency of micturition Memory difficulties Arthritis History of dysphagia Multiple sclerosis GERD (gastroesophageal reflux disease) Anxiety Pain syndrome, chronic Disc degeneration, lumbar 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, bilateral Family History Family History Mother Diabetes Kidney failure Father AAA (abdominal aortic aneurysm, ruptured) Family/Other Mental health disorder Substance use disorder Surgical History Surgical History Hx of hysterectomy History of surgery on left wrist Deficient knowledge of leg surgery History of rotator cuff surgery History of left knee surgery History of myomectomy History of appendectomy Social History Social History Household Members: Family Housing: House Are you a primary direct support professional caregiver to a significant other at home: No Do you presently have visiting nurse or other home services: No ([employer] 2 hrs/wk) Unable to assess alcohol history related to: Unable to respond Alcohol intake: current Alcohol intake frequency: former alcohol drinker Alcohol type: wine Comment: Tolerable right knee pain per pt. Patient Tobacco Use Status: Never used Tobacco e-Cigarette/Vaping Use: Never Used Second Hand Smoke Exposure: No Advance Directives Date on File: 05/16/21 service: No Current occupational status: retired and disabled Cognitive needs: Yes (walker) Hearing needs: No Vision needs: Yes (glasses) Meds Allergies Allergy/AdvReac Type Severity Reaction Status Date / Time prochlorperazine [Compazine] Allergy Severe Dystonic Verified 07/17/24 01:44 Reaction cobalt [COBALT] Allergy Intermediate RASH Verified 07/17/24 01:44 hydrocodone [Vicodin] Allergy Intermediate Nausea and Verified 07/17/24 01:44 Vomiting nickel [NICKEL] Allergy Intermediate RASH Verified 07/17/24 01:44 ondansetron [Zofran] Allergy Intermediate Hives Verified 07/17/24 01:44 morphine AdvReac Intermediate Nausea and Verified 07/17/24 01:44 Vomiting Active Medications: Current Medications Acetaminophen (Acetaminophen 325 Mg Tablet) 650 mg PO Q6H PRN PRN Reason: Pain, Mild 1-3,fever,headache Baclofen (Baclofen 10 Mg Tablet) 10 mg PO BID [facility] Last Admin: 07/18/24 08:35 Dose: 10 mg Baclofen (Baclofen 10 Mg Tablet) 10 mg PO BEDTIME [facility] Last Admin: 07/17/24 23:00 Dose: 10 mg Calcium Carbonate (Calcium Carbonate 750 Mg Tab.Chew) 750 mg PO Q4H PRN PRN Reason: Heartburn Enoxaparin Sodium (Enoxaparin Sodium 40 Mg/0.4 Ml Syringe) 40 mg SUBCUT Q24H [facility] Last Admin: 07/18/24 08:36 Dose: 40 mg Ergocalciferol (Ergocalciferol (Vitamin D2) 1,250 Mcg Capsule) 1,250 mcg PO BROWN@0900 [facility] Last Admin: 07/18/24 08:35 Dose: 1,250 mcg Folic Acid (Folic Acid 1 Mg Tablet) 1 mg PO DAILY [facility] Last Admin: 07/18/24 08:35 Dose: 1 mg Lactated Ringer's (Lr) 1,000 mls @ 125 mls/hr IVCONT .Q8H [facility] Last Admin: 07/18/24 05:32 Dose: 125 mls/hr Lorazepam (Lorazepam 0.5 Mg Tablet) 0.5 mg PO BID PRN PRN Reason: anxiety Last Admin: 07/18/24 05:55 Dose: 0.5 mg Melatonin (Melatonin 3 Mg Tablet) 6 mg PO BEDTIME PRN PRN Reason: Insomnia Metoprolol Tartrate (Metoprolol Tartrate 12.5 Mg Halftab) 37.5 mg PO BID [facility]; Protocol Last Admin: 07/18/24 08:35 Dose: 37.5 mg Omeprazole (Omeprazole 20 Mg Capsule.Dr) 20 mg PO BID@0630,1630 [facility] Last Admin: 07/18/24 05:32 Dose: 20 mg Oxcarbazepine (Oxcarbazepine 150 Mg Tablet) 150 mg PO BID [facility] Last Admin: 07/18/24 08:35 Dose: 150 mg Oxcarbazepine (Oxcarbazepine 300 Mg Tablet) 300 mg PO BID [facility] Last Admin: 07/18/24 08:35 Dose: 300 mg Oxycodone HCl (Oxycodone Hcl Immed Release 5 Mg Tablet) 5 mg PO BID PRN PRN Reason: Pain, Severe (Pain Scale 7-10) Last Admin: 07/18/24 05:34 Dose: 5 mg Prazosin HCl (Prazosin Hcl 1 Mg Capsule) 1 mg PO BEDTIME [facility]; Protocol Last Admin: 07/17/24 23:00 Dose: 1 mg Quetiapine Fumarate (Quetiapine Fumarate 100 Mg Tablet) 100 mg PO BEDTIME [facility] Last Admin: 07/17/24 23:00 Dose: 100 mg Sertraline HCl (Sertraline Hcl 100 Mg Tablet) 200 mg PO DAILY [facility] Last Admin: 07/18/24 08:35 Dose: 200 mg Sodium Chloride (0.9 % Sodium Chloride Flush 3 Ml Syringe) 3 ml IVFLUSH QSHIFT [facility] Last Admin: 07/18/24 08:36 Dose: 3 ml Tolterodine Tartrate (Tolterodine Tartrate La 4 Mg Cap.Er.24h) 4 mg PO DAILY [facility] Last Admin: 07/18/24 08:35 Dose: 4 mg Zolpidem Tartrate (Zolpidem Tartrate 5 Mg Tablet) 5 mg PO BEDTIME PRN PRN Reason: Insomnia Home Medications ?Medication ?Instructions ?Recorded ?Confirmed ?Last Taken ?Type ergocalciferol (vitamin D2) 1,250 1,250 mcg PO BROWN@0900 06/05/20 07/17/24 Unknown History mcg (50,000 unit) capsule solifenacin 10 mg tablet (Vesicare) 10 mg PO DAILY 07/25/23 07/17/24 07/15/24 History sertraline 100 mg tablet 200 mg PO DAILY 10/09/23 07/17/24 07/15/24 History quetiapine 100 mg tablet 100 mg PO BEDTIME 12/31/23 07/17/24 07/15/24 History lorazepam 0.5 mg tablet 0.5 mg PO BID PRN anxiety 07/17/24 07/17/24 Unknown History metoprolol tartrate 25 mg tablet 37.5 mg PO BID 07/17/24 07/17/24 07/15/24 History omeprazole 20 mg capsule,delayed 20 mg PO BID@0630,1630 07/17/24 07/17/24 07/15/24 History release oxcarbazepine 150 mg tablet 150 mg PO BID 07/17/24 07/17/24 07/15/24 History prazosin 1 mg capsule 1 mg PO BEDTIME 07/17/24 07/17/24 07/15/24 History zolpidem 10 mg tablet 10 mg PO BEDTIME PRN Insomnia 07/17/24 07/17/24 Unknown History Physical Exam Vital Signs: Vital Signs: Last Vital Signs Temp 96.9 F 07/18/24 08:04 Pulse 66 07/18/24 08:04 Resp 18 07/18/24 08:04 BP 147/67 H 07/18/24 08:04 Pulse Ox 97 07/18/24 08:04 O2 Del Method Room Air 07/18/24 08:04 BMI result Body Mass Index 35.0 Const: General: cooperative, healthy appearing, comfortable and no acute distress Nutritional Appearance: obese GI: Other: Abdomen is soft nondistended nontender Results Labs 07/18/24 06:13 07/18/24 06:13 Labs: Abnormal lab results 07/17/24 07/18/24 Range/Units 02:13 06:13 RBC 3.71 L (4.20-5.50) X10*6/uL Hgb 11.0 L (12.0-16.0) g/dl Hct 33.2 L (37.0-47.0) % Plt Count 116 L (160-400) X10*3/uL Chloride 110 H (96-108) mmol/L Calcium 8.3 L D (8.4-10.2) mg/dL C-Reactive Protein 3.06 H (< or = 0.50) mg/dL Short CBC 07/18/24 Range/Units 06:13 WBC 5.3 (4.8-10.8) X10*3/uL Hgb 11.0 L (12.0-16.0) g/dl Hct 33.2 L (37.0-47.0) % Plt Count 116 L (160-400) X10*3/uL BMP 07/18/24 06:13 Sodium 141 Potassium 3.6 Chloride 110 H Carbon Dioxide 22 BUN 9 Creatinine 0.80 Calcium 8.3 L D All other labs normal. Imaging Abdomen CT scan report/results: report reviewed and image reviewed CT scan - pelvis: report reviewed and image reviewed Additional studies: t: Sarah Dash MR#: [id number] : 1955 Acct:[id number] Age/Sex: 68 / F ADM Date: 07/17/24 Loc: HO.ED Attending Dr: Ordering Physician: Jonathan Roth Date of Service: 07/17/24 Procedure(s): CT abdomen pelvis w IV con Accession Number(s): [id number] cc: Jonathan Roth; Physician,Unknown ~ Report Number: [id number]: Total DLP = 3293.00 mGy-cm CLINICAL HISTORY: abd pain CT abdomen and pelvis with contrast Comparison: CT/SR - CT ABDOMEN PELVIS W IV CON - 06/15/24 14:18 EST Findings: Bibasilar atelectasis. No basilar pleural or pericardial effusion. Fatty involution of the pancreas. Left-sided simple renal cysts. No hydronephrosis or hydroureter. Gallbladder and remainder of the solid intra-abdominal organs are unremarkable. Distal esophagus is normal. Stomach is predominantly collapsed. Small bowel is nondilated. Few fluid-filled mildly prominent loops of bowel in the left abdomen, not dilated by size criteria, possibly reflecting enteritis or ileus. Early obstruction not excluded. Close clinical follow-up recommended. Appendix is not visualized. No secondary signs to suggest acute appendicitis. Scattered colonic diverticula without diverticulitis. Fluid attenuation in the colon and rectosigmoid junction, may reflect loose stool/diarrhea. Mild haziness/stranding of the small bowel mesentery with some prominent though nonenlarged by size criteria small bowel mesenteric lymph nodes, nonspecific and possibly reactive. Mild wall thickening of the urinary bladder, possibly related to underdistention though correlate with urinalysis to exclude cystitis. Uterus is not visualized, atrophic or surgically absent. No adnexal masses. No free fluid. No free air. No lymphadenopathy. Atherosclerotic calcifications of the aorta. No acute fracture.Multilevel degenerative changes of the spine. Grade 1 anterolisthesis of L4 on L5 and L5 on S1. IMPRESSION: 1. Few fluid-filled mildly prominent loops of bowel in the left abdomen, not dilated by size criteria, possibly reflecting enteritis or ileus. Early obstruction not excluded. Close clinical follow-up recommended. 2. Mild haziness/stranding of the small bowel mesentery with some prominent though nonenlarged by size criteria small bowel mesenteric lymph nodes, nonspecific and possibly reactive. 3. Fluid attenuation in the colon and rectosigmoid junction, may reflect loose stool/diarrhea. 4. Scattered colonic diverticula without diverticulitis. 5. Mild wall thickening of the urinary bladder, possibly related to underdistention though correlate with urinalysis to exclude cystitis. 6. Additional findings as described. This document has been electronically signed by: Debbie Gonzalez MD on 07/17/2024 12:08:20 Dictated By: Debbie Gonzalez MD Signed By: <Electronically signed by Debbie Gonzalez MD in [place]> 07/17/24 1209 DD/ 1208 TD/TT: 07/17/24 1208 Food Service: Assessment and Plan (1) Enteritis: Status: Acute Plan 68-year-old female with enteritis doing much better now. No evidence of any obstruction or any bowel compromise. At this point plan to just slowly advance diet continue with hydration. If there is any other concerns please re-consult. Thank you Procedures Date of Service Date of Service: 07/18/24
--- NOTE | 2024-07-18 15:39 | MHC.CM.PN ---
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
[2024-07-18] MEDS: Nystatin Oral Susp 500,000 UNIT/5 ML ORAL.SUSP 100000 UNIT PO ×2 (15:53→20:28)
[2024-07-18 16:14] VITALS: BP 181/77; PULSE 64; RESP 18; TEMP 36.1; O2SAT 96
[2024-07-18 17:03] LABS: Appearance Urine Cloudy; Color Urine Yellow; Glucose Urine UA Negative (Negative); Leukocyte Esterase Urine Negative (Negative); Nitrite Urine Negative (Negative); Specific Gravity - Urine 1.015 (1.005-1.025); Urine Blood Negative (Negative); Urine Ketones Negative (Negative); Urine Protein Trace mg/dL (Neg-Trace)
[2024-07-18 19:49] VITALS: BP 169/74; PULSE 63; RESP 18; TEMP 36.6; O2SAT 96
[2024-07-18] MEDS: Prazosin HCL 1 MG CAPSULE PO (20:27)
[2024-07-18] MEDS: QUEtiapine Fumarate 100 MG TABLET PO (20:27)
[2024-07-19] MEDS: Lactated Ringers 1,000 ML 125 ML IVCONT (03:24)
[2024-07-19 04:00] VITALS: BP 125/60; PULSE 67; RESP 18; TEMP 36.2; O2SAT 94
[2024-07-19] MEDS: Omeprazole 20 MG CAPSULE.DR PO ×2 (05:43→15:40)
[2024-07-19] MEDS: LORazepam 0.5 MG TABLET PO ×2 (06:29→21:12)
[2024-07-19] MEDS: oxyCODONE HCl Immed Release 5 MG TABLET PO ×2 (06:33→21:17)
[2024-07-19 07:16] VITALS: BP 149/70; PULSE 68; RESP 16; TEMP 36.6; O2SAT 95
[2024-07-19] MEDS: Enoxaparin Sodium 40 MG/0.4 ML SYRINGE SUBCUT (08:29)
[2024-07-19] MEDS: Metoprolol Tartrate 12.5 MG HALFTAB 37.5 MG PO (08:29)
[2024-07-19] MEDS: OXcarbazepine 300 MG TABLET PO ×2 (08:30→21:12)
[2024-07-19] MEDS: OXcarbazepine 150 MG TABLET PO ×2 (08:30→21:12)
[2024-07-19] MEDS: Sertraline HCL 100 MG TABLET 200 MG PO (08:30)
[2024-07-19] MEDS: Nystatin Oral Susp 500,000 UNIT/5 ML ORAL.SUSP 100000 UNIT PO ×3 (08:30→21:03)
[2024-07-19] MEDS: Baclofen 10 MG TABLET PO (08:30)
[2024-07-19] MEDS: Folic Acid 1 MG TABLET PO (08:30)
[2024-07-19] MEDS: Tolterodine Tartrate LA 4 MG CAP.ER.24H PO (08:31)
--- NOTE | 2024-07-19 11:20 | PM.NEUROCN ---
History of Present Illness Data of Consult Service Date: 07/19/24 Primary Care Provider: Drew Marc MD HPI Reason for consult: Vertigo This is a 68 yo F with MS previously on ocrelizumab followed at [facility] and at [facility] center, HTN, SVT, recent encephalopathy admission in 2023. presenting with 1-day history of severe nausea, non-bloody and non-bilious vomiting, and non-bloody watery diarrhea. She also states that she has had dizziness, which she describes as vertigo, that started during her last admission here and is positional., which was from 06/15/24-06/28/24 for acute encephalopathy, KATIANA, and rhabdomyolysis. Recent MRI of brain shows white matter abnormalities as expected ED workup included a CT of the head, which was unremarkable; a patent head and neck CTA with scattered atherosclerosis and a known right thyroid nodule PMFSH Past Medical History Medical History Hypertension Urinary incontinence Anxiety Anxiety COVID-19 Osteoarthritis of right knee Essential hypertension SVT (supraventricular tachycardia) Depression History of kidney problems Paroxysmal SVT (supraventricular tachycardia) History of confusion Urgency of micturition Memory difficulties Arthritis History of dysphagia Multiple sclerosis GERD (gastroesophageal reflux disease) Anxiety Pain syndrome, chronic Disc degeneration, lumbar 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, bilateral Family History Family History Mother Diabetes Kidney failure Father AAA (abdominal aortic aneurysm, ruptured) Family/Other Mental health disorder Substance use disorder Surgical History Surgical History Hx of hysterectomy History of surgery on left wrist Deficient knowledge of leg surgery History of rotator cuff surgery History of left knee surgery History of myomectomy History of appendectomy Social History Social History Household Members: Family Housing: House Are you a primary primary health care nurse to a significant other at home: No Do you presently have visiting nurse or other home services: No ([employer] 2 hrs/wk) Unable to assess alcohol history related to: Unable to respond Alcohol intake: current Alcohol intake frequency: former alcohol drinker Alcohol type: wine Comment: Tolerable right knee pain per pt. Patient Tobacco Use Status: Never used Tobacco e-Cigarette/Vaping Use: Never Used Second Hand Smoke Exposure: No Advance Directives Date on File: 05/16/21 service: No Current occupational status: retired and disabled Cognitive needs: Yes (walker) Hearing needs: No Vision needs: Yes (glasses) Meds Allergies Allergy/AdvReac Type Severity Reaction Status Date / Time prochlorperazine [Compazine] Allergy Severe Dystonic Verified 07/17/24 01:44 Reaction cobalt [COBALT] Allergy Intermediate RASH Verified 07/17/24 01:44 hydrocodone [Vicodin] Allergy Intermediate Nausea and Verified 07/17/24 01:44 Vomiting nickel [NICKEL] Allergy Intermediate RASH Verified 07/17/24 01:44 ondansetron [Zofran] Allergy Intermediate Hives Verified 07/17/24 01:44 morphine AdvReac Intermediate Nausea and Verified 07/17/24 01:44 Vomiting Active Medications: Current Medications Acetaminophen (Acetaminophen 325 Mg Tablet) 650 mg PO Q6H PRN PRN Reason: Pain, Mild 1-3,fever,headache Baclofen (Baclofen 10 Mg Tablet) 10 mg PO BID [facility] Last Admin: 07/19/24 08:30 Dose: 10 mg Baclofen (Baclofen 10 Mg Tablet) 10 mg PO BEDTIME [facility] Last Admin: 07/18/24 20:28 Dose: 10 mg Calcium Carbonate (Calcium Carbonate 750 Mg Tab.Chew) 750 mg PO Q4H PRN PRN Reason: Heartburn Enoxaparin Sodium (Enoxaparin Sodium 40 Mg/0.4 Ml Syringe) 40 mg SUBCUT Q24H [facility] Last Admin: 07/19/24 08:29 Dose: 40 mg Ergocalciferol (Ergocalciferol (Vitamin D2) 1,250 Mcg Capsule) 1,250 mcg PO BROWN@0900 [facility] Last Admin: 07/18/24 08:35 Dose: 1,250 mcg Folic Acid (Folic Acid 1 Mg Tablet) 1 mg PO DAILY [facility] Last Admin: 07/19/24 08:30 Dose: 1 mg Lorazepam (Lorazepam 0.5 Mg Tablet) 0.5 mg PO BID PRN PRN Reason: anxiety Last Admin: 07/19/24 06:29 Dose: 0.5 mg Melatonin (Melatonin 3 Mg Tablet) 6 mg PO BEDTIME PRN PRN Reason: Insomnia Metoprolol Tartrate (Metoprolol Tartrate 12.5 Mg Halftab) 37.5 mg PO BID [facility]; Protocol Last Admin: 07/19/24 08:29 Dose: 37.5 mg Nystatin (Nystatin Oral Susp 500,000 Unit/5 Ml Oral.Susp) 100,000 unit PO TID [facility]; Protocol Last Admin: 07/19/24 08:30 Dose: 100,000 unit Omeprazole (Omeprazole 20 Mg Capsule.Dr) 20 mg PO BID@0630,1630 [facility] Last Admin: 07/19/24 05:43 Dose: 20 mg Oxcarbazepine (Oxcarbazepine 150 Mg Tablet) 150 mg PO BID [facility] Last Admin: 07/19/24 08:30 Dose: 150 mg Oxcarbazepine (Oxcarbazepine 300 Mg Tablet) 300 mg PO BID [facility] Last Admin: 07/19/24 08:30 Dose: 300 mg Oxycodone HCl (Oxycodone Hcl Immed Release 5 Mg Tablet) 5 mg PO BID PRN PRN Reason: Pain, Severe (Pain Scale 7-10) Last Admin: 07/19/24 06:33 Dose: 5 mg Prazosin HCl (Prazosin Hcl 1 Mg Capsule) 1 mg PO BEDTIME [facility]; Protocol Last Admin: 07/18/24 20:27 Dose: 1 mg Quetiapine Fumarate (Quetiapine Fumarate 100 Mg Tablet) 100 mg PO BEDTIME [facility] Last Admin: 07/18/24 20:27 Dose: 100 mg Sertraline HCl (Sertraline Hcl 100 Mg Tablet) 200 mg PO DAILY [facility] Last Admin: 07/19/24 08:30 Dose: 200 mg Sodium Chloride (0.9 % Sodium Chloride Flush 3 Ml Syringe) 3 ml IVFLUSH QSHIFT [facility] Last Admin: 07/19/24 07:42 Dose: Not Given Tolterodine Tartrate (Tolterodine Tartrate La 4 Mg Cap.Er.24h) 4 mg PO DAILY [facility] Last Admin: 07/19/24 08:31 Dose: 4 mg Zolpidem Tartrate (Zolpidem Tartrate 5 Mg Tablet) 5 mg PO BEDTIME PRN PRN Reason: Insomnia Home Medications ?Medication ?Instructions ?Recorded ?Confirmed ?Last Taken ?Type ergocalciferol (vitamin D2) 1,250 1,250 mcg PO BROWN@0900 12/14/20 01/25/25 Unknown History mcg (50,000 unit) capsule solifenacin 10 mg tablet (Vesicare) 10 mg PO DAILY 07/25/23 07/17/24 07/15/24 History sertraline 100 mg tablet 200 mg PO DAILY 10/09/23 07/17/24 07/15/24 History quetiapine 100 mg tablet 100 mg PO BEDTIME 12/31/23 07/17/24 07/15/24 History lorazepam 0.5 mg tablet 0.5 mg PO BID PRN anxiety 07/17/24 07/17/24 Unknown History metoprolol tartrate 25 mg tablet 37.5 mg PO BID 07/17/24 07/17/24 07/15/24 History omeprazole 20 mg capsule,delayed 20 mg PO BID@0630,1630 07/17/24 07/17/24 07/15/24 History release oxcarbazepine 150 mg tablet 150 mg PO BID 07/17/24 07/17/24 07/15/24 History prazosin 1 mg capsule 1 mg PO BEDTIME 07/17/24 07/17/24 07/15/24 History zolpidem 10 mg tablet 10 mg PO BEDTIME PRN Insomnia 07/17/24 07/17/24 Unknown History Physical Exam Vital Signs: Vital Signs: Last Vital Signs Temp 97.8 F 07/19/24 07:16 Pulse 68 07/19/24 07:16 Resp 16 07/19/24 07:16 BP 149/70 H 07/19/24 07:16 Pulse Ox 95 07/19/24 07:16 O2 Del Method Room Air 07/19/24 07:16 BMI result Body Mass Index 35.0 Neuro: Other: Nonfocal neurological examination. She is in bed, so the gait was not tested Results Labs 07/18/24 06:13 07/18/24 06:13 Labs: Urine 07/18/24 Range/Units 16:50 Urine Color Yellow Urine Appearance Cloudy Urine pH 7.0 (5.0-9.0) Ur Specific [place] 1.015 (1.005-1.025) Urine Protein Trace (Neg-Trace) mg/dL Urine Glucose (UA) Negative (Negative) mg/dL Assessment and Plan (1) Multiple sclerosis: Status: Acute Followup at the [facility] with Dr. Sridhar Pappas for continuation of MS viera (2) Dizziness: Status: Acute She appears to have benign positional vertigo with the vertigo occurring in certain head movements and positions. It happens when she is turning on the right side. She also complains of spasms in her lower extremities. Recommendations: Vestibular therapy for otolith repositioning. Consider adding days and in a 4 mg twice a day for muscle spasms in the legs Procedures Date of Service Date of Service: 07/19/24
[2024-07-19] MEDS: Acetaminophen 325 MG TABLET 650 MG PO (13:34)
[2024-07-19] MEDS: TiZANidine HCL 4 MG TABLET PO ×2 (13:35→21:06)
--- NOTE | 2024-07-19 14:26 | MHC.CM.PN ---
Addendum entered by Alba Montano RN 07/19/24 15:49: Patient accepted bed @ [facility], who will submit for auth. If not approved by [facility], she feels comfortable w/ plan to dc home w/ services. Original Note: PT recommending STR. Patient agreeable. No facility preferences. Referrals sent to local STR's via [facility]. Awaiting bed offer.
--- NOTE | 2024-07-19 14:36 | HO.PM.IMPN ---
Subjective Subjective Date of Service: 07/19/24 Interval History: N/V/D resolved, no abd pain, tolerating diet still c/o vertigo with turning head to right c/o leg spasms Review of Systems Review of Systems: Yes all other systems are reviewed and are negative Physical Exam Vital Signs: Vital Signs: Last Vital Signs Temp 97.8 F 07/19/24 07:16 Pulse 68 07/19/24 07:16 Resp 16 07/19/24 07:16 BP 149/70 H 07/19/24 07:16 Pulse Ox 95 07/19/24 07:16 O2 Del Method Room Air 07/19/24 07:16 BMI result Body Mass Index 35.0 Gen: in no acute distress HEENT: sclera anicteric, moist mucus membranes Neck: supple Lungs: clear to auscultation bilaterally Heart: regular rate and rhythm, no murmurs Abd: soft, nontender Ext: no edema Skin: warm/well-perfused Neuro: alert and oriented x3, generalized weakness Psych: appropriate affect Objective Data Active Medications Acetaminophen (Acetaminophen 325 Mg Tablet) 650 mg PO Q6H PRN PRN Reason: Pain, Mild 1-3,fever,headache Last Admin: 07/19/24 13:34 Dose: 650 mg Documented By: MARYJANE Calcium Carbonate (Calcium Carbonate 750 Mg Tab.Chew) 750 mg PO Q4H PRN PRN Reason: Heartburn Enoxaparin Sodium (Enoxaparin Sodium 40 Mg/0.4 Ml Syringe) 40 mg SUBCUT Q24H [facility] Last Admin: 07/19/24 08:29 Dose: 40 mg Documented By: MARYJANE Ergocalciferol (Ergocalciferol (Vitamin D2) 1,250 Mcg Capsule) 1,250 mcg PO BROWN@0900 [facility] Last Admin: 07/18/24 08:35 Dose: 1,250 mcg Documented By: RUBIN Folic Acid (Folic Acid 1 Mg Tablet) 1 mg PO DAILY [facility] Last Admin: 07/19/24 08:30 Dose: 1 mg Documented By: MARYJANE Lorazepam (Lorazepam 0.5 Mg Tablet) 0.5 mg PO BID PRN PRN Reason: anxiety Last Admin: 07/19/24 06:29 Dose: 0.5 mg Documented By: DEYANIRA Melatonin (Melatonin 3 Mg Tablet) 6 mg PO BEDTIME PRN PRN Reason: Insomnia Metoprolol Tartrate (Metoprolol Tartrate 12.5 Mg Halftab) 37.5 mg PO BID [facility]; Protocol Last Admin: 07/19/24 08:29 Dose: 37.5 mg Documented By: MARYJANE Nystatin (Nystatin Oral Susp 500,000 Unit/5 Ml Oral.Susp) 100,000 unit PO TID [facility]; Protocol Last Admin: 07/19/24 08:30 Dose: 100,000 unit Documented By: MARYJANE Omeprazole (Omeprazole 20 Mg Capsule.Dr) 20 mg PO BID@0630,1630 [facility] Last Admin: 07/19/24 05:43 Dose: 20 mg Documented By: DEYANIRA Oxcarbazepine (Oxcarbazepine 150 Mg Tablet) 150 mg PO BID [facility] Last Admin: 07/19/24 08:30 Dose: 150 mg Documented By: MARYJANE Oxcarbazepine (Oxcarbazepine 300 Mg Tablet) 300 mg PO BID [facility] Last Admin: 07/19/24 08:30 Dose: 300 mg Documented By: MARYJANE Oxycodone HCl (Oxycodone Hcl Immed Release 5 Mg Tablet) 5 mg PO BID PRN PRN Reason: Pain, Severe (Pain Scale 7-10) Last Admin: 07/19/24 06:33 Dose: 5 mg Documented By: DEYANIRA Prazosin HCl (Prazosin Hcl 1 Mg Capsule) 1 mg PO BEDTIME [facility]; Protocol Last Admin: 07/18/24 20:27 Dose: 1 mg Documented By: DEYANIRA Quetiapine Fumarate (Quetiapine Fumarate 100 Mg Tablet) 100 mg PO BEDTIME [facility] Last Admin: 07/18/24 20:27 Dose: 100 mg Documented By: DEYANIRA Sertraline HCl (Sertraline Hcl 100 Mg Tablet) 200 mg PO DAILY [facility] Last Admin: 07/19/24 08:30 Dose: 200 mg Documented By: MARYJANE Sodium Chloride (0.9 % Sodium Chloride Flush 3 Ml Syringe) 3 ml IVFLUSH QSHIFT [facility] Last Admin: 07/19/24 07:42 Dose: Not Given Documented By: MARYJANE Non-Admin Reason: IV Running Tizanidine HCl (Tizanidine Hcl 4 Mg Tablet) 4 mg PO BID [facility] Last Admin: 07/19/24 13:35 Dose: 4 mg Documented By: MARYJANE Tolterodine Tartrate (Tolterodine Tartrate La 4 Mg Cap.Er.24h) 4 mg PO DAILY [facility] Last Admin: 07/19/24 08:31 Dose: 4 mg Documented By: MARYJANE Zolpidem Tartrate (Zolpidem Tartrate 5 Mg Tablet) 5 mg PO BEDTIME PRN PRN Reason: Insomnia Labs 07/18/24 06:13 07/18/24 06:13 Labs: Laboratory Results - last 24 hr 07/18/24 16:50 Urine Color Yellow Urine Appearance Cloudy Urine pH 7.0 Ur Specific [place] 1.015 Urine Protein Trace Urine Glucose (UA) Negative Urine Ketones Negative Urine Blood Negative Urine Nitrite Negative Ur Leukocyte Esterase Negative Assessment and Plan (1) Enteritis: Status: Acute Plan d2 68 yo F with MS previously on ocrelizumab but no longer due to rash, HTN, SVT, and frontotemporal dementia presented with acute nausea, vomiting, diarrhea, and abdominal pain x1d, found to have dilated loops of bowel concerning for enteritis or ileus, also c/o vertigo dizziness/vertigo - Neurology consulted; PT for vestibular therapy - trial of prn meclizine enteritis - resolved, tolerating diet; per Surgery, no obstruction HTN SVT - continue metoprolol succinate mood disorder - continue sertraline, quetiapine, prazosin, lorazepam chronic pain - continue oxycodone muscle spasm - continue oxcarbazepine; change baclofen to tizanidine OAB - solifenacin VTE ppx - enoxaparin dispo - PT consulted, recommend STR In my clinical judgment, the patient requires continued inpatient hospitalization for the following reasons: placement Total time managing care of this patient today: 40 minutes. Quality Stroke Does the patient have a stroke diagnosis?: No VTE Prior VTE?: No VTE Risk Level:: Medical - moderate - high VTE Device Contraindication: N/A - Device Ordered VTE Drug Contraindication: N/A - Med Ordered
[2024-07-19 15:05] VITALS: BP 145/80; PULSE 60; RESP 20; TEMP 36.2; O2SAT 95
[2024-07-19] MEDS: Meclizine HCl 25 MG TABLET PO (15:40)
[2024-07-19] MEDS: 0.9 % Sodium Chloride Flush 3 ML SYRINGE IVFLUSH ×2 (15:43→21:03)
[2024-07-19] MEDS: oxyCODONE HCl Immed Release 5 MG TABLET 10 MG PO (18:01)
[2024-07-19 19:13] VITALS: BP 140/74; PULSE 60; RESP 20; TEMP 36.1; O2SAT 96
[2024-07-19] MEDS: QUEtiapine Fumarate 100 MG TABLET PO (21:06)
[2024-07-20 03:57] VITALS: BP 142/67; PULSE 56; RESP 18; TEMP 36.4; O2SAT 97
[2024-07-20] MEDS: Omeprazole 20 MG CAPSULE.DR PO (05:52)
[2024-07-20] MEDS: oxyCODONE HCl Immed Release 5 MG TABLET PO (05:55)
[2024-07-20] MEDS: LORazepam 0.5 MG TABLET PO (05:55)
[2024-07-20 08:00] VITALS: BP 153/70; PULSE 67; RESP 18; TEMP 36.7; O2SAT 97
[2024-07-20] MEDS: Nystatin Oral Susp 500,000 UNIT/5 ML ORAL.SUSP 100000 UNIT PO ×2 (08:21→14:23)
[2024-07-20] MEDS: Tolterodine Tartrate LA 4 MG CAP.ER.24H PO (08:21)
[2024-07-20] MEDS: Metoprolol Tartrate 12.5 MG HALFTAB 37.5 MG PO (08:21)
[2024-07-20] MEDS: OXcarbazepine 150 MG TABLET PO (08:22)
[2024-07-20] MEDS: Sertraline HCL 100 MG TABLET 200 MG PO (08:22)
[2024-07-20] MEDS: OXcarbazepine 300 MG TABLET PO (08:22)
[2024-07-20] MEDS: TiZANidine HCL 4 MG TABLET PO (08:22)
[2024-07-20] MEDS: Folic Acid 1 MG TABLET PO (08:22)
[2024-07-20] MEDS: Enoxaparin Sodium 40 MG/0.4 ML SYRINGE SUBCUT (08:22)
[2024-07-20] MEDS: 0.9 % Sodium Chloride Flush 3 ML SYRINGE IVFLUSH (08:27)
[2024-07-20 09:11] LABS: Adenovirus F 40/41 Not Detected (Not Detect.); Astrovirus Not Detected (Not Detect.); Campylobacter Not Detected (Not Detect.); Cryptosporidium Not Detected (Not Detect.); Cyclospora cayetanensis Not Detected (Not Detect.); E. coli EAEC Not Detected (Not Detect.); E. coli EPEC Not Detected (Not Detect.); E. coli ETEC Not Detected (Not Detect.); E. coli STEC Not Detected (Not Detect.); Entamoeba histolytica Not Detected (Not Detect.); Giardia lamblia Not Detected (Not Detect.); Plesiomonas shigelloides Not Detected (Not Detect.); Rotavirus A Not Detected (Not Detect.); Salmonella Not Detected (Not Detect.); Sapovirus Not Detected (Not Detect.); Shigella sp./EIEC Not Detected (Not Detect.); Vibrio Not Detected (Not Detect.); Vibrio Cholerae Not Detected (Not Detect.); Yersinia enterocolitica Not Detected (Not Detect.)
[2024-07-20 09:32] LABS: Hematocrit 29.8 % (37.0-47.0); Hemoglobin 10.1 g/dl (12.0-16.0); Mean Corpuscular HGB Conc 33.9 g/dl (31.0-35.0); Mean Corpuscular Hemoglobin 30.1 pg (27.0-33.0); Mean Corpuscular Volume 88.7 fL (80.0-98.0); Mean Platelet Volume 9.7 fL (9.4-12.3); Platelet Count 104 X10*3/uL (160-400); Red Blood Count 3.36 X10*6/uL (4.20-5.50); White Blood Count 5.7 X10*3/uL (4.8-10.8)
[2024-07-20 09:47] LABS: Anion Gap 9 (12-20); Blood Urea Nitrogen 10 mg/dL (9-16); C Reactive Protein 0.93 mg/dL (< or = 0.50); Calcium 7.8 mg/dL (8.4-10.2); Carbon Dioxide 22 mmol/L (22-29); Chloride 111 mmol/L (96-108); Creatinine Clr Calc Pharmacy 78.6; Estimated Glomerular Filt Rate > 60; Glucose Random 98 mg/dL (60-115); Potassium 3.5 mmol/L (3.3-5.1); Sodium 138 mmol/L (135-145)
--- NOTE | 2024-07-20 12:20 | P.DS_ITS ---
DS: Providers Provider Date of Service: 07/20/24 Date of admission: 07/17/24 14:10 Date of discharge: 07/20/24 Primary care physician: Drew Marc MD Consults: 07/17/24 13:53 Consult to General Surgery Routine Consulting Provider: [facility] General Surgeons Reason for consultation: enteritis or ileus. Early obstruction not excluded 07/17/24 14:24 Consult to Neurology Routine Consulting Provider: [facility] Reason for consultation: vertigo/MS patient. DS: Diagnosis Discharge Diagnosis (1) Enteritis: Status: Acute (2) Norovirus: Status: Acute (3) Muscle spasm: Status: Acute (4) Vertigo: Status: Acute DS: Summary Hospital Course Hospital Course: from my admission H+P, 07/17/24: 68 yo F with MS previously on ocrelizumab but no longer due to rash, HTN, SVT, and frontotemporal dementia presenting with 1-day history of severe nausea, non- bloody and non-bilious vomiting, and non-bloody watery diarrhea. Describes upper abdominal pain on both sides that is moderate in intensity. Multiple sick contacts in the building where she lives. No recent antibiotic treatment. She also states that she has had dizziness, which she describes as vertigo, that started during her last admission here, which was from 06/15/24-06/28/24 for acute encephalopathy, KATIANA, and rhabdomyolysis. ED workup included a CT of the head, which was unremarkable; a patent head and neck CTA with scattered atherosclerosis and a known right thyroid nodule; and abdominopelvic CT with fluid-filled mildly prominent loops of bowel in the left abdomen, as well as mild stranding of the small bowel mesentery. Electrlytes normal. C difficile toxin negative. She was admitted to the medical-surgical unit. Per Surgery consultation, no obstruction. Her diet was advanced from clear liquids to full solids with good tolerance. Ultimately, she was diagnosed with norovirus infection. For her complaints of vertigo, Neurology was consulted and recommended prn meclizine as well as PT for vestibular therapy. For her muscle spams, Neurology recommended changing baclofen to tizanidine. She was recommended for short-term rehabilitation but ultimately decided to go home with resumption of VNA services including PT. Time Attestation Discharge Coordination Time (in mins): 45 Quality: Safe Use of Opioids Does Pt have an Active Cancer Diagnosis on the Problem List?: No Quality: Stroke Does the patient have a stroke diagnosis?: No Physical Exam Vital Signs: Vital Signs: Last Vital Signs Temp 98.0 F 07/20/24 08:00 Pulse 67 07/20/24 08:00 Resp 18 07/20/24 08:00 BP 153/70 H 07/20/24 08:00 Pulse Ox 97 07/20/24 08:00 O2 Del Method Room Air 07/20/24 08:00 BMI result Body Mass Index 35.0 Gen: in no acute distress HEENT: sclera anicteric, moist mucus membranes Neck: supple Lungs: clear to auscultation bilaterally Heart: regular rate and rhythm, no murmurs Abd: soft, nontender Ext: no edema Skin: warm/well-perfused Neuro: alert and oriented x3, generalized weakness Psych: appropriate affect DS: Data Data Completed and Pending Completed studies during hospitalization [Text1]: Laboratory Results WBC 5.7 X10*3/uL (4.8-10.8) 07/20/24 09:25 RBC 3.36 X10*6/uL (4.20-5.50) L 07/20/24 09:25 Hgb 10.1 g/dl (12.0-16.0) L 07/20/24 09:25 Hct 29.8 % (37.0-47.0) L 07/20/24 09:25 MCV 88.7 fL (80.0-98.0) 07/20/24 09:25 MCH 30.1 pg (27.0-33.0) 07/20/24 09:25 MCHC 33.9 g/dl (31.0-35.0) 07/20/24 09:25 RDW 13.0 % (11.0-16.0) 07/20/24 09:25 Plt Count 104 X10*3/uL (160-400) L 07/20/24 09:25 MPV 9.7 fL (9.4-12.3) 07/20/24 09:25 Immature Gran % (Auto) 0.5 % (0.0-0.4) H 07/17/24 02:13 Neut % (Auto) 82.3 % (45-73) H 07/17/24 02:13 Lymph % (Auto) 10.2 % (20-40) L 07/17/24 02:13 Dougherty % (Auto) 6.2 % (2-11) 07/17/24 02:13 Eos % (Auto) 0.6 % (0-4) 07/17/24 02:13 Baso % (Auto) 0.2 % (0-2) 07/17/24 02:13 Lymph # (Auto) 0.9 X10*3/uL (1.2-4.9) L 07/17/24 02:13 Dougherty # (Auto) 0.5 X10*3/uL (0.1-1.2) 07/17/24 02:13 Eos # (Auto) 0.1 X10*3/uL (0.0-0.4) 07/17/24 02:13 Baso # (Auto) 0.0 X10*3/uL (0.0-0.2) 07/17/24 02:13 Abs Immat Gran (auto) 0.04 X10*3/uL (0.00-0.03) H 07/17/24 02:13 Absolute Neuts (auto) 7.1 x10*3/uL (2.0-8.3) 07/17/24 02:13 Absolute Nucleated RBC 0.000 X10*3/uL (0.0-0.012) 07/20/24 09:25 Nucleated RBC % (auto) 0.0 /100WBC (0.0-0.2) 07/20/24 09:25 Sodium 138 mmol/L (135-145) 07/20/24 09:25 Potassium 3.5 mmol/L (3.3-5.1) 07/20/24 09:25 Chloride 111 mmol/L (96-108) H 07/20/24 09:25 Carbon Dioxide 22 mmol/L (22-29) 07/20/24 09:25 Anion Gap 9 (12-20) L 07/20/24 09:25 BUN 10 mg/dL (9-16) 07/20/24 09:25 Creatinine 0.76 mg/dL (0.5-1.4) 07/20/24 09:25 Estim Creat Clear Calc 78.6 07/20/24 09:25 Estimated GFR > 60 07/20/24 09:25 Random Glucose 98 mg/dL (60-115) 07/20/24 09:25 Calcium 7.8 mg/dL (8.4-10.2) L D 07/20/24 09:25 Total Bilirubin 0.5 mg/dL (0.0-1.0) 07/17/24 02:13 AST 20 U/L (5-31) 07/17/24 02:13 ALT 9 U/L (0-31) 07/17/24 02:13 Alkaline Phosphatase 81 U/L (39-117) 07/17/24 02:13 Troponin I High Sens 8.6 ng/L (<3.5-17.0) D 07/17/24 02:13 C-Reactive Protein 0.93 mg/dL (< or = 0.50) H 07/20/24 09:25 Total Protein 7.6 g/dL (6.5-8.0) 07/17/24 02:13 Albumin 4.1 g/dL (3.5-5.0) 07/17/24 02:13 Lipase 10 U/L (8-78) 07/17/24 02:13 Urine Color Yellow 07/18/24 16:50 Urine Appearance Cloudy 07/18/24 16:50 Urine pH 7.0 (5.0-9.0) 07/18/24 16:50 Ur Specific Norden 1.015 (1.005-1.025) 07/18/24 16:50 Urine Protein Trace mg/dL (Neg-Trace) 07/18/24 16:50 Urine Glucose (UA) Negative mg/dL (Negative) 07/18/24 16:50 Urine Ketones Negative mg/dL (Negative) 07/18/24 16:50 Urine Blood Negative (Negative) 07/18/24 16:50 Urine Nitrite Negative (Negative) 07/18/24 16:50 Ur Leukocyte Esterase Negative (Negative) 07/18/24 16:50 Stl C. cayetanensis PCR Not Detected (Not Detect.) 07/19/24 19:05 Stool Rotavirus A PCR Not Detected (Not Detect.) 07/19/24 19:05 Stl Adenov F 40/41 PCR Not Detected (Not Detect.) 07/19/24 19:05 Stool Astrovirus (PCR) Not Detected (Not Detect.) 07/19/24 19:05 Stool Campylobacter PCR Not Detected (Not Detect.) 07/19/24 19:05 Stool Cryptosporidium PCR Not Detected (Not Detect.) 07/19/24 19:05 Stl Sh Tox Pr E STEC PCR Not Detected (Not Detect.) 07/19/24 19:05 Stool E coli O157 PCR Not applicable (Not Detect.) 07/19/24 19:05 Stl Enterotoxigenic E PCR Not Detected (Not Detect.) 07/19/24 19:05 Stool EPEC (PCR) Not Detected (Not Detect.) 07/19/24 19:05 Stool EAEC (PCR) Not Detected (Not Detect.) 07/19/24 19:05 Stl E. histolytica PCR Not Detected (Not Detect.) 07/19/24 19:05 Stool Giardia Lamblia PCR Not Detected (Not Detect.) 07/19/24 19:05 Stl P. shigelloides PCR Not Detected (Not Detect.) 07/19/24 19:05 Stool Salmonella PCR Not Detected (Not Detect.) 07/19/24 19:05 Stool Sapovirus (PCR) Not Detected (Not Detect.) 07/19/24 19:05 Stl Shigella/EIEC PCR Not Detected (Not Detect.) 07/19/24 19:05 St Y.enterocolitica PCR Not Detected (Not Detect.) 07/19/24 19:05 Stool Vibrio (PCR) Not Detected (Not Detect.) 07/19/24 19:05 Stl Vibrio cholerae PCR Not Detected (Not Detect.) 07/19/24 19:05 Stl Norovirus GI/GII PCR See Comment (Not Detect.) 07/19/24 19:05 Ethyl Alcohol < 10 mg/dL 07/17/24 02:13 C. difficile Tox B Gene NEGATIVE (Negative) 07/17/24 07:35 Influenza Type A (PCR) NEGATIVE (Negative) 07/17/24 02:13 Influenza Type B (PCR) NEGATIVE (Negative) 07/17/24 02:13 RSV RNA Qual (PCR) NEGATIVE (Negative) 07/17/24 02:13 SARS-CoV-2 RNA (RT-PCR) NEGATIVE (Negative) 07/17/24 02:13 CT A/P 07/17/24 1. Few fluid-filled mildly prominent loops of bowel in the left abdomen, not dilated by size criteria, possibly reflecting enteritis or ileus. Early obstruction not excluded. Close clinical follow-up recommended. 2. Mild haziness/stranding of the small bowel mesentery with some prominent though nonenlarged by size criteria small bowel mesenteric lymph nodes, nonspecific and possibly reactive. 3. Fluid attenuation in the colon and rectosigmoid junction, may reflect loose stool/diarrhea. 4. Scattered colonic diverticula without diverticulitis. 5. Mild wall thickening of the urinary bladder, possibly related to underdistention though correlate with urinalysis to exclude cystitis. 6. Additional findings as described. CT H/N 07/17/[address] 2. Patent head and neck CTA. Scattered areas of atherosclerotic calcifications are noted without significant area of stenosis. 3. There is a possible 1.9 cm right thyroid nodule, consider correlation with a nonemergent dedicated thyroid ultrasound. Discharge Plan Discharge Anticipated Discharge Date/Time: 07/20/24 11:55 Patient Disposition: Home Health Service Discharge Diagnosis: norovirus infection vertigo muscle spasms thrush Referrals: Drew Marc MD [Primary Care Provider] - 1 Week Discharge Medications: New nystatin 100,000 unit/mL Suspension 5 ml PO QID Qty: 200 0RF loperamide 2 mg Capsule 2 mg PO Q4H PRN (Reason: diarrhea) Qty: 30 0RF tizanidine 4 mg Tablet 4 mg PO BID Qty: 60 0RF meclizine 25 mg Tablet 25 mg PO Q6H PRN (Reason: vertigo) Qty: 30 0RF Continued oxycodone 5 mg tablet 5 mg PO BID PRN (Reason: pain) Qty: 60 0RF Rx Instructions: Partial Fill upon patient request. zolpidem 10 mg tablet 10 mg PO BEDTIME PRN (Reason: Insomnia) oxcarbazepine 150 mg tablet 150 mg PO BID Rx Instructions: TAKE WITH 300 MG FOR TOTAL DOSE OF 450 MG BID prazosin 1 mg capsule 1 mg PO BEDTIME omeprazole 20 mg capsule,delayed release(DR/EC) 20 mg PO BID@0630,1630 metoprolol tartrate 25 mg tablet 37.5 mg PO BID lorazepam 0.5 mg tablet 0.5 mg PO BID PRN (Reason: anxiety) folic acid 1 mg tablet 1 mg PO DAILY Qty: 90 0RF oxcarbazepine 300 mg tablet 300 mg PO BID Qty: 180 0RF Rx Instructions: TAKE 1 TABLET BY MOUTH TWICE A DAY WITH 150 MG TABLET FOR TOTAL DOSE = 450 MG. sertraline 100 mg tablet 200 mg PO DAILY quetiapine 100 mg tablet 100 mg PO BEDTIME ergocalciferol (vitamin D2) 1,250 mcg (50,000 unit) capsule 1,250 mcg PO BROWN@0900 solifenacin [Vesicare] 10 mg tablet 10 mg PO DAILY Discontinued baclofen 10 mg Tablet 10 mg PO BEDTIME Qty: 0 0RF baclofen 10 mg tablet 10 mg PO BID Qty: 180 0RF Discharge Orders: Discharge Order (Routine); Ordered 07/20/24 Ordered By: Wander Farooq Diet: Advance to usual diet Activity on Discharge: As tolerated Stand Alone Forms: Patient Portal Discharge page Print Language: Sammarinese Care Plan Goals: recovery from acute infection Health Concerns: norovirus infection vertigo muscle spasms thrush Plan of Treatment: drink plenty of fluids; use loperamide as needed for diarrhea vestibular physical therapy; meclizine as needed for vertigo change from baclofen to tizanidine use nystatin for thrush Assessment: See Discharge Summary
--- NOTE | 2024-07-20 13:13 | MHC.CM.PN ---
PT IS AWARE SHE IS CLEARED FOR DC SHE SAYS SHE DOES NOT WANT TO GO TO STR SHE SAYS SHE HAS HOME SERVICES AND FEELS SAFE WITH WHAT SHE HAS SHE SAYS SHE WILL CALL HER NEPHEWS TO BRING CLOTHES AND PROVIDE TRANSPORT ONCE THEY ARE OUT OF WORK SHE WILL DC HOME TODAY WITH RESUMPTION OF [facility] AND [facility]
[2024-07-20] MEDS: Loperamide HCl 2 MG CAPSULE PO (14:23)
[2024-07-20] MEDS: Acetaminophen 325 MG TABLET 650 MG PO (14:24)
[2024-07-20 15:09] VITALS: BP 144/75; PULSE 66; RESP 20; TEMP 36.5; O2SAT 96
[2024-07-23 08:38] LABS: Norovirus Stool PCR DETECTED
== END 2024-07-20 17:02 | disposition home health service (06) | DRG 392 ==
LOC: HO.ED 12:45 → HO.EDOVER 14:15 → HO.S3 19:54
PROVIDERS: Physician Assistant; Admitting Provider Family Medicine; Emergency Provider Emergency Medicine; PCP Internal Medicine; Visit Provider Family Medicine
DX: A08.11 Acute gastroenteropathy due to Norwalk agent (principal); I47.10 Supraventricular tachycardia, unspecified; G35 Multiple sclerosis; N32.81 Overactive bladder; M62.838 Other muscle spasm; B37.9 Candidiasis, unspecified; R42 Dizziness and giddiness; G89.4 Chronic pain syndrome; G31.09 Other frontotemporal neurocognitive disorder; F02.80 Dementia in other diseases classified elsewhere, unspecified severity, without behavioral disturbance, psychotic disturbance, mood disturbance, and anxiety; Z20.822 Contact with and (suspected) exposure to COVID-19; Z79.899 Other long term (current) drug therapy
CPT/HCPCS: 0241U; 36415; 70496; 70498; 74177; 80048; 80053; 80307; 81003; 83690; 84484; 85025; 85027; 86140; 87493; 87507; 93005; 95992; 97116; 97162; 99221; 99285; J1650; J2060; J7120

== ENCOUNTER → 2024-07-17 02:01 | Outpatient (BNV) | payer MEDICARE, MEDICAID, SELFPAY | PROVIDERS: Emergency Provider Emergency Medicine; Visit Provider Internal Medicine Cardiovascular Disease | DX: R94.31 Abnormal electrocardiogram [ECG] [EKG] (principal) | CPT/HCPCS: 93010 ==

== ENCOUNTER → 2024-07-17 07:01 | Outpatient (BNV) | payer MEDICARE, MEDICAID, SELFPAY | PROVIDERS: Emergency Provider Emergency Medicine; Visit Provider Radiology Diagnostic Radiology | DX: K52.9 Noninfective gastroenteritis and colitis, unspecified (principal); K57.30 Diverticulosis of large intestine without perforation or abscess without bleeding; R42 Dizziness and giddiness | CPT/HCPCS: 70496; 74177 ==

== ENCOUNTER → 2024-07-17 14:10 | Outpatient (BNV) | payer MEDICARE, MEDICAID, SELFPAY | PROVIDERS: Admitting Provider Family Medicine; Emergency Provider Emergency Medicine; PCP Internal Medicine; Visit Provider Psychiatry & Neurology Neurology | DX: G35 Multiple sclerosis (principal); R42 Dizziness and giddiness | CPT/HCPCS: 99222 ==

== ENCOUNTER → 2024-07-17 14:10 | Outpatient (BNV) | payer MEDICARE, MEDICAID, SELFPAY | PROVIDERS: Admitting Provider Family Medicine; Emergency Provider Emergency Medicine; Visit Provider Family Medicine | DX: K52.9 Noninfective gastroenteritis and colitis, unspecified (principal) | CPT/HCPCS: 99232; 99239 ==

== ENCOUNTER → 2024-07-17 14:10 | Outpatient (BNV) | payer MEDICARE, MEDICAID, SELFPAY | PROVIDERS: Admitting Provider Family Medicine; Emergency Provider Emergency Medicine; Visit Provider Surgery | DX: K52.9 Noninfective gastroenteritis and colitis, unspecified (principal) | CPT/HCPCS: 99222 ==

== ENCOUNTER 2024-07-30 14:59 | Outpatient (AMB) | payer MEDICARE, MEDICAID, SELFPAY ==
--- OUTSIDE RECORDS SUMMARY | 2024-07-30 15:04 | XMS_ITS | Clinical Summary ---
Author Organization [facility] Address [address] [facility] [address] [place] [address] Phone Care Team Providers Care Diet Tech Name Role Phone Drew Marc MD Primary Care Provider + Allergies Active Allergy Reactions Criticality Noted Date Comments [place] Rash Low 05/29/2022 Hydrocodone Other (see comments) [...] 09/15/2020 Active ergocalciferol (VITAMIN D2) 1.25 MG (68700 UT) capsule Take 1 capsule by mouth [...] Personal/Family Self 1955 [address] [place] [address] MEDICAID [place] UHC MEDICARE Care Teams Diet Tech Relationship Specialty Start Date End Date Drew Marc MD [facility] [address] [place] [address] [address] PCP - General 09/20/20
--- OUTSIDE RECORDS SUMMARY | 2024-07-30 15:04 | XMS_ITS | Clinical Summary ---
Author Organization [address] [place] [address] Address [address] [place] [address] Phone Care Team Providers Care Rotor Casting Machine Setup Operator Name Role Phone Drew Marc MD Primary Care Provider +1- [phone] Allergies Active Allergy Reactions Criticality Noted Date Comments [place] Rash Low 05/29/2022 Hydrocodone Other 09/20/2020 Hydrocodone-Acetaminophen [...] Type Department Care Team Description 07/15/[address] [phone] Lyly Hampton LCSW Multiple Sclerosis (/) 07/07/2024 3:30 PM EST Office Visit [facility] [address] [facility] [address] [place] [address] Estephania Anaya PA Frontotemporal dementia (CMS/HCC) (Primary Dx) 05/12/2024 3:00 PM EST Office Visit [facility] [address] [facility] [address] [place] [address] Estephania Anaya PA Multiple sclerosis (CMS/HCC) (Primary Dx) 05/04/[address] [place] [address] Estephania Anaya PA from Last [...] Description 10/13/2024 3:30 PM EDT Office Visit [facility] [address] [place] [address] Danelle Grant MD [address] [place] [address] Health Maintenance Due Date Last [...] Recently Relevant to Health Maintenance Care Teams Rotor Casting Machine Setup Operator Relationship Specialty Start Date End Date Drew Marc MD [facility] [address] [place] [address] [address] [place] [address] PCP - General Internal Medicine 08/10/20
--- OUTSIDE RECORDS SUMMARY | 2024-07-30 15:04 | XMS_ITS | Encounter Summary ---
Author Organization [facility] Address [address] [place] [address] Care Team Providers Care Tissue Inserter Name Role Phone Drew Marc MD Primary Care Provider +1- [phone] Reason for Referral * Consultation (Routine) - Pending Review Specialty Diagnoses / Procedures Referred By Donna stewart Referred To Contact Neurology Diagnoses Frontotemporal dementia (CMS/HCC) Estephania Anaya PA [address] [facility] [place], [place] [address] Referral ID Status Reason Start Date Expiration Date Visits Requested Visits Authorized [id number] Pending Review Specialty Services Required 07/08/2024 07/08/2025 1 1 Scheduling Instructions Please refer to dementia specialist at [facility] for evaluation of dementia-has been told she has frontotemporal dementia. Patient also has diagnosis of MS Encounter Details Date Type Department Care Team (Latest Contact Info) Description 07/07/2024 3:30 PM EST Office Visit [facility] - [address] [place] [address] Estephania Anaya PA [address] [place] [address] for [place] [id number] Frontotemporal dementia (CMS/HCC) (Primary Dx) Social History [...] RICHIE Haynes - 07/07/2024 3:30 PM EST [facility]OS[facility] CC: MS HPI: Patient [...] states that she is working with her garbage stoker (Esvin Milian) regarding this. Reporting significant joint [...] Disp: , Rfl: ergocalciferol (VITAMIN D2) capsule 46454 units, TAKE 1 CAPSULE BY MOUTH ONE [...] a referral to a dementia specialist at [facility] for further evaluation. She continues with her regular care team including psychiatry (Esvin Milian), nephrology (Dr. Godoy), cardiology, orthopedics, and PCP. To address concerns of home safety and questions regarding resources for assistance, I will reach out to our case management social worker Lyly and ask her to contact patient's [...] Milian) Low back pain: Continue following with [place] pain management Cervical disc disease/lumbar disc disease: [...] 90 minutes. The majority of the actual [id number] visit was spent counseling the patient with respect to the current neurological picture. Estephania Anaya PA-C documented in this encounter Plan of Treatment Upcoming Encounters Date Type Department Care Team (Late st Contact Info) Description 10/13/2024 3:30 PM EDT Office Visit [facility] [address] [facility] [address] [place] [address] Danelle Grant MD [address] [facility] [address] [place] [address] Scheduled Referrals Name Type Priority Associated Diagnoses Order Schedule Ambulatory referral to Neurology Outpatient Referral Routine Frontotemporal dementia (CMS/HCC) 1 Occurrences starting 07/08/2024 until 07/08/2025 documented as of this encounter Visit Diagnoses Diagnosis Frontotemporal dementia ([facility]/HCC)- Primary documented in this encounter Discontinued Medications [...] 11/21/2022 added in this encounter Care Teams Tissue Inserter Relationship Specialty Start Date End Date Drew Marc MD [place] [facility] [address] [place] [address] [address] [place] [address] PCP - General Internal Medicine 08/10/20 documented as of this encounter
--- OUTSIDE RECORDS SUMMARY | 2024-07-30 15:04 | XMS_ITS | Encounter Summary ---
Author Organization [facility] Address [address] [place] [address] Care Team Providers Care Oracle Database Architect Name Role Phone Drew Marc MD Primary Care Provider +1- [phone] Reason for Visit * Reason Onset Date Comments Multiple Sclerosis 07/15/2024 Encounter Details Date Type Department Care Team (Late st Contact Info) Description 07/15/2024 Telephone [facility] [address] [phone] Lyly De Jesus LCSW Multiple Sclerosis (/) [...] Description 10/13/2024 3:30 PM EDT Office Visit [facility] [address] [place] [address] Danelle Grant MD [address] [facility] [address] [place] [address] documented as of this encounter Visit Diagnoses Not on filedocumented in this encounter Care Teams Oracle Database Architect Relationship Specialty Start Date End Date Drew Marc MD [address] [place] [address] PCP - General Internal Medicine 08/10/20 documented as of this encounter
--- OUTSIDE RECORDS SUMMARY | 2024-07-30 15:04 | XMS_ITS | Clinical Summary ---
Author Organization [facility] Address [address] [place] [address] Care Team Providers Care Clothes Model Name Role Phone Drew Marc MD Primary [...] 3 10/27/2023 Active ergocalciferol (VITAMIN D2) capsule 93980 units TAKE 1 CAPSULE BY MOUTH ONE [...] age to complete this topic Care Teams Clothes Model Relationship Specialty Start Date End Date Drew Marc MD [address] [place] [address] Dr [address] [place] [id number] PCP - General Internal Medicine 08/10/20
--- OUTSIDE RECORDS SUMMARY | 2024-07-30 15:04 | XMS_ITS ---
Author Name [facility] Organization Unknown History of Medication Use Medication Directions Dispensed Refills Start Date End Date Stat baclofen (LIORESAL) 10 mg tablet TAKE 1 TABLET BY MOUTH IN MORNING AND TWO TABLETS AT NIGHT 05/28/2024 active OXcarbazepine (TRILEPTAL) 150 mg tablet Take 1 tablet (150 mg total) by mouth 2 (two) times a day. 06/04/2022 active predniSONE 10 mg tablets,dose pack Take 4 tablets (40 mg total) by mouth. active sertraline (ZOLOFT) 100 mg tablet TAKE 1 TABLET BY MOUTH 2 TIMES A DAY FOR 30 DAYS 04/10/2022 active dilTIAZem (TIAZAC) 120 mg 24 hr capsule 06/10/2021 active LORazepam (ATIVAN) 0.5 mg tablet Take 1 tablet (0.5 mg total) by mouth 2 (two) times a day. Max Daily Amount: 1 mg active ibuprofen (ADVIL,MOTRIN) 200 mg tablet Take 1 tablet (200 mg total) by mouth every 6 hours as needed. active omeprazole (PriLOSEC) [address] capsule Take 1 capsule (20 mg total) by mouth 2 (two) times a day. 02/01/2021 active QUEtiapine (SEROquel) 25 mg tablet Take 4 tablets (100 mg total) by mouth at bedtime. 01/22/2020 active multivitamin tablet Take 1 tablet by mouth 1 (one) time each day. active zolpidem (AMBIEN) 5 mg tablet TAKE 1 TABLET ORALLY BEDTIME NEEDED FOR INSOMNIA active ergocalciferol (VITAMIN D-2) 1,250 mcg (50,000 unit) capsule Take 1 capsule (50,000 Units total) by mouth 1 (one) time per week. 02/26/2022 active folic acid (FOLVITE) 1 mg tablet Take by mouth 1 (one) time each day. active thiamine 100 mg tablet Take 10 mg by mouth 1 (one) time each day. active metoprolol tartrate (LOPRESSOR) 25 mg tablet Take 1 tablet (25 mg total) by mouth 2 (two) times a day. active prazosin (MINIPRESS) 1 mg capsule Take 1 capsule (1 mg total) by mouth. at bedtime 06/25/2024 active dilTIAZem CD (CARDIZEM CD) 120 mg 24 hr capsule Take 1 capsule (120 mg total) by mouth 1 (one) time each day. 11/21/2022 active oxyCODONE (ROXICODONE) 5 mg immediate release tablet Take 1 tablet (5 mg total) by mouth 2 (two) times a day. Max Daily Amount: 10 mg 10/06/2019 active Problems Problem Status Onset Date Problem Type Date of Resoluti on Source Multiple sclerosis active 2020-07-18 ProblemAct [facility]_THSFRAN Headache active 2019-10-26 ProblemAct [facility]_THSFR AN Depression active 2019-10-26 ProblemAct CT_THSF RAN Back pain active 2019-10-26 ProblemAct CT_THSFR AN
[2024-07-30 15:18] VITALS: BP 160/102; PULSE 84; TEMP 36.3; O2SAT 96; BMI 35.8
--- NOTE | 2024-07-30 15:18 | MHC.PC.OV ---
Vital Signs 07/30/24 15:18 Height 5 ft 5 in Weight 215 lb BMI 35.8 BP 160/102 H Blood Pressure Location Lt brachial Position Sitting Pulse 84 Pulse Source Pulse Oximeter Temp 97.3 F Temp Source Temporal Artery Scan Pulse Oximetry (%) 96 Oxygen Delivery Method Room Air Intake Visit Reasons: [facility] Enteritis 07/22 Electronics Technician Required: No Accompanied by: Self / Same As Patient Allergies prochlorperazine [Compazine] Allergy (Severe, Verified 07/30/24 15:33) Dystonic Reaction cobalt [COBALT] Allergy (Intermediate, Verified 07/30/24 15:33) RASH hydrocodone [Vicodin] Allergy (Intermediate, Verified 07/30/24 15:33) Nausea and Vomiting nickel [NICKEL] Allergy (Intermediate, Verified 07/30/24 15:33) RASH ondansetron [Zofran] Allergy (Intermediate, Verified 07/30/24 15:33) Hives morphine Adverse Reaction (Intermediate, Verified 07/30/24 15:33) Nausea and Vomiting Medication List - Last Reconciled 07/30/24 by RICHARD Negron ergocalciferol (vitamin D2) 1,250 mcg PO BROWN@0900 folic acid 1 mg PO DAILY loperamide 2 mg PO Q4H PRN lorazepam 0.5 mg PO BID PRN meclizine 25 mg PO Q6H PRN metoprolol tartrate 37.5 mg PO BID nystatin 5 mL PO QID omeprazole 20 mg PO BID@0630,1630 oxcarbazepine 300 mg PO BID oxcarbazepine 150 mg PO BID oxycodone 5 mg PO BID PRN prazosin 1 mg PO BEDTIME quetiapine 100 mg PO BEDTIME sertraline 200 mg PO DAILY solifenacin (Vesicare) 10 mg PO DAILY tizanidine 4 mg PO BID zolpidem 10 mg PO BEDTIME PRN Tobacco use date assessed: 07/30/24 Fall risk assessment: No Falls in past year Last assessed Fall Risk: 07/30/24 Dental Screening Dental Screen Date: 07/30/24 Did you have a dental visit in the last 12 months?: No Did you have a dental problem in the last 6 months where you did not have access to dental care?: No Was dental information given to patient?: Patient has dentist HPI [facility] Enteritis 07/22 HPI Details The patient is presenting today for post hospital admission follow up due to norovirus infection 68 yo F with MS previously on ocrelizumab but no longer due to rash, HTN, SVT, and frontotemporal dementia presenting with 1-day history of severe nausea, non-bloody and non-bilious vomiting, and non-bloody watery diarrhea. Describes upper abdominal pain on both sides that is moderate in intensity. Multiple sick contacts in the building where she lives. No recent antibiotic treatment. She also states that she has had dizziness, which she describes as vertigo, that started during her last admission here, which was from 06/15/24-06/28/24 for acute encephalopathy, KATIANA, and rhabdomyolysis. ED workup included a CT of the head, which was unremarkable; a patent head and neck CTA with scattered atherosclerosis and a known right thyroid nodule; and abdominopelvic CT with fluid-filled mildly prominent loops of bowel in the left abdomen, as well as mild stranding of the small bowel mesentery. Electrlytes normal. C difficile toxin negative. She was admitted to the medical-surgical unit. Per Surgery consultation, no obstruction. Her diet was advanced from clear liquids to full solids with good tolerance. Ultimately, she was diagnosed with norovirus infection. For her complaints of vertigo, Neurology was consulted and recommended prn meclizine as well as PT for vestibular therapy. For her muscle spams, Neurology recommended changing baclofen to tizanidine. She was recommended for short-term rehabilitation but ultimately decided to go home with resumption of VNA services including PT. Patient reports that she is feeling much better Reports that since talking to this rfp writer about her wine drinking could interact with her medications She has been cutting back completely to almost not drinking any Reports that PT did vestibular therapy on her in the hospital and her dizziness has improved tremendously Reports that her abdominal pain has resolved and her back pain is much better since being switched from baclofen to tizanidine Reports that at first she thought that the tizanidine 4 mg was too much for her because she felt fogged after taking it Discussed with patient about possibly decreasing it to 2 mg and the patient declined and said that she is tolerating it much better now She denies shortness of breath, denies chest pain, denies heart palpitation or dizziness Denies abdominal pain or change in bowel habits Denies any urinary symptoms TCM TCM Information Date of Discharge 07/20/24 Discharged From [facility] Interactive Contact Date (Reference documentation from this date) 07/21/24 PENDING SALE TO [facility] Medical History Hypertension Urinary incontinence Anxiety Anxiety COVID-19 Osteoarthritis of right knee Essential hypertension SVT (supraventricular tachycardia) Depression History of kidney problems Paroxysmal SVT (supraventricular tachycardia) History of confusion Urgency of micturition Memory difficulties Arthritis History of dysphagia Multiple sclerosis GERD (gastroesophageal reflux disease) Anxiety Pain syndrome, chronic Disc degeneration, lumbar 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, bilateral Surgical History Hx of hysterectomy History of surgery on left wrist Deficient knowledge of leg surgery History of rotator cuff surgery History of left knee surgery History of myomectomy History of appendectomy Family History Mother Diabetes Kidney failure Father AAA (abdominal aortic aneurysm, ruptured) Family/Other Mental health disorder Substance use disorder Social History Household Members: Family Housing: House Are you a primary director career services to a significant other at home: No Do you presently have visiting nurse or other home services: 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 Patient Tobacco Use Status: Never used Tobacco e-Cigarette/Vaping Use: Never Used Second Hand Smoke Exposure: No Advance Directives Date on File: 05/16/21 service: No Current occupational status: retired and disabled Cognitive needs: Yes (walker) Hearing needs: No Vision needs: Yes (glasses) Questionnaire Thrive Questionnaire Date Thrive assessed: 07/18/24 ARNAUD-7 AMB Questionnaire ARNAUD-7 Date ARNAUD - 7 assessed: 07/15/24 Source: Developed by Drs. Dewey Angel, Cherie Mei, Dilan Giordano and colleagues, with an educational domingo from [employer]. Review of Systems Const Details: Denies chills, Denies fatigue, Denies fever(s), Denies headache(s) and Denies weakness HEENT Denies change in vision, Denies dizziness, Denies headache(s), Denies hearing loss, Denies nasal congestion, Denies sinus pain, Denies sinus pressure and Denies sore throat Card Denies chest pain, Denies lightheadedness, Denies dyspnea and Denies other (palpitations) Resp Denies cough, Denies dyspnea and Denies wheezing GI Denies abdominal pain, Denies melena, Denies hematochezia, Denies change in bowel habits, Denies dyspepsia and Denies nausea Denies hematuria and Denies dysuria Musc Denies abnormal gait, +myalgias (lower back pain/muscle spasm), Denies arthralgias, Denies numbness and Denies tingling Skin/Breast Denies rash, Denies unusual bruising and Denies wounds Neuro Denies abnormal gait, Denies dizziness, Denies headache(s), Denies memory loss, Denies numbness, Denies Sensory deficit (Neuro), Denies tingling and Denies weakness Psych reports anxiety, reports depression and Denies memory loss Endo Denies cold intolerance, Denies fatigue, Denies heat intolerance, Denies polydipsia and Denies polyuria Justin/Lymph Denies easy bleeding and Denies easy bruising Aller/Immun Denies wheezing Physical exam (Primary Care) Vital Signs: Last Vital Signs Temp 97.3 F 07/30/24 15:18 Pulse 84 07/30/24 15:18 BP 160/102 H 07/30/24 15:18 Pulse Ox 96 07/30/24 15:18 Oxygen Delivery Method Room Air 07/30/24 15:18 BMI result Body Mass Index 35.8 Tobacco/Smoking Status: Tobacco use Status Tobacco use date assessed 07/30/24 07/30/24 15:26 Patient Tobacco Use Status Never used Tobacco 07/30/24 15:21 e-Cigarette/Vaping Use Never Used 07/30/24 15:21 Thrive Assessment: Date of Thrive Assessment Date Thrive assessed 07/18/24 07/30/24 15:21 Const Other: General: no acute distress, well developed, alert and awake Nutritional Appearance: well nourished Orientation/consciousness: patient oriented x3 HENMT Head: Yes normocephalic and Yes atraumatic Ears: hearing grossly normal bilaterally and TM's normal bilaterally General nose exam: Normal external nose present and Normal nares present Mouth: Normal oral and palatal mucosa present and moist mucous membranes Eyes Pupils: Equal, round and reactive pupils present and Pupil accommodation reflex normal EOM: EOMs intact bilaterally Neck Neck: Yes normal visual inspection, Yes no lymphadenopathy Thyroid: Thyroid normal Resp Effort & Inspection: normal respiratory effort Auscultation: clear to auscultation bilaterally Cardio Rate: regular rate Rhythm: regular rhythm Heart sounds: S1 normal heart sound present, S2 normal heart sound present, no gallops, no murmurs and no rubs GI Palpation (GI): Abdomen is soft and nontender to palpation Auscultation: normal bowel sounds General: Yes no CVA tenderness Back/Spine/Pelvis Back: no CVA tenderness Cervical Spine: cervical ROM normal and No Cervical spine tenderness Thoracic/Lumbar Spine: No lumbar tenderness Skin General: warm and dry. Normal skin color. Normal skin turgor Lesions: no lesions Nails: normal Neuro General: patient oriented x3, gait normal Cranial nerves: Yes Equal, round and reactive pupils present Cognition (Neuro): normal cognition Gait exam (Neuro): Normal gait present Extrem General: Yes normal to inspection, No edema and No calf tenderness Psych Appearance: grossly normal Affect: normal affect Attitude: cooperative Thought process: Normal thought process present Coding Level of Care Code TCM Mod MDM <= 7 Days Diagnoses Norovirus A08.11 Enteritis K52.9 Vertigo R42 Muscle spasm M62.838 Primary hypertension I10 Hypertension type: primary hypertension Spondylosis of lumbar region without myelopathy or radiculopathy M47.816 Anxiety F41.9 Recurrent major depressive disorder, in partial remission F33.41 Active/Remission status: in partial remission Depression Type: major depressive disorder Major depression recurrence: recurrent Time Spent (min) 38 Assessment & Plan Assessment & Plan (1) Norovirus: Code(s): A08.11 - Acute gastroenteropathy due to [place] agent Category: Medical Plan: Patient reports that everyone in her house was sick and she was trying to avoid the hospital but she was unable to stop the diarrhea Since has resolved. Loperamide 2 mg q.[address] (2) Enteritis: Code(s): K52.9 - Noninfective gastroenteritis and colitis, unspecified Category: Medical Plan: Same as above (3) Vertigo: Code(s): R42 - Dizziness and giddiness Category: Medical Plan: Reports receiving PT vestibular therapy in the hospital with positive effects Continue meclizine 25 mg q.6 hours p.r.n. (4) Muscle spasm: Code(s): M62.838 - Other muscle spasm Category: Medical Plan: Baclofen was switched to tizanidine 4 mg b.i.d. Reports that at first she thought that the tizanidine 4 mg was too much for her because she felt fogged after taking it Discussed with patient about possibly decreasing it to 2 mg and the patient declined and said that she is tolerating it much better now (5) Hypertension: Code(s): I10 - Essential (primary) hypertension Category: Medical Qualifiers: Hypertension type: primary hypertension Qualified Code(s): I10 - Essential (primary) hypertension Plan: Blood pressure in office 160/102. The patient reports that she did not bring her wheelchair and had to walk-in side from the car and she thinks that is why her blood pressure is so high. Blood pressure rechecked after the patient has settled down 128/62 Reinforced low-sodium diet. Continue metoprolol tartrate 37.5 mg b.i.d. (6) Spondylosis of lumbar region without myelopathy or radiculopathy: Code(s): M47.816 - Spondylosis without myelopathy or radiculopathy, lumbar region Category: Medical Plan: Reinforced waiting activity restriction Continue oxycodone 5 mg b.i.d. as needed (7) Anxiety: Code(s): F41.9 - Anxiety disorder, unspecified Category: Medical Plan: Continue sertraline 200 mg daily Denies SI/HI (8) Depression: Code(s): F32.9 - Major depressive disorder, single episode, unspecified Category: Medical Qualifiers: Active/Remission status: in partial remission Depression Type: major depressive disorder Major depression recurrence: recurrent Qualified Code(s): F33.41 - Major depressive disorder, recurrent, in partial remission Plan: Same as above Plan Follow up as scheduled with PCP next month
== END 2024-07-30 16:03 | disposition home or self-care (01) ==
PROVIDERS: PCP Internal Medicine
DX: R42 Dizziness and giddiness (principal); A08.11 Acute gastroenteropathy due to Norwalk agent; K52.9 Noninfective gastroenteritis and colitis, unspecified; F33.41 Major depressive disorder, recurrent, in partial remission; M62.838 Other muscle spasm; I10 Essential (primary) hypertension; M47.816 Spondylosis without myelopathy or radiculopathy, lumbar region; F41.9 Anxiety disorder, unspecified

== ENCOUNTER → 2024-07-30 14:59 | Outpatient (BNVA) | payer MEDICARE, MEDICAID, SELFPAY | PROVIDERS: PCP Internal Medicine | DX: A08.11 Acute gastroenteropathy due to Norwalk agent (principal); K52.9 Noninfective gastroenteritis and colitis, unspecified; R42 Dizziness and giddiness; M62.838 Other muscle spasm; I10 Essential (primary) hypertension; M47.816 Spondylosis without myelopathy or radiculopathy, lumbar region; F41.9 Anxiety disorder, unspecified; F33.41 Major depressive disorder, recurrent, in partial remission | CPT/HCPCS: 99495 ==

== ENCOUNTER 2024-08-04 15:15 | Outpatient (AMB) | payer MEDICARE, MEDICAID, SELFPAY ==
--- NOTE | 2024-08-04 15:29 | HO.NEPHOV_ITS ---
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 Required: No Accompanied by: Self / Same As Patient Allergies prochlorperazine [Compazine] Allergy (Severe, Verified 08/04/24 15:32) Dystonic Reaction cobalt [COBALT] Allergy (Intermediate, Verified 08/04/24 15:32) RASH hydrocodone [Vicodin] Allergy (Intermediate, Verified 08/04/24 15:32) Nausea and Vomiting nickel [NICKEL] Allergy (Intermediate, Verified 08/04/24 15:32) RASH ondansetron [Zofran] Allergy (Intermediate, Verified 08/04/24 15:32) Hives morphine Adverse Reaction (Intermediate, Verified 08/04/24 15:32) Nausea and Vomiting HPI Comments Details: I had the pleasure of seeing Sarah by Alere in follow-up of her hypertension and history of hyponatremia. She has multiple sclerosis and has been having challenges from it lately. She has not gotten her last infusion of Ocrevus. She is looking forward to have a new Neurologist. She has been feeling weak and tired. She has been having urinary issues and has seen a urologist. She underwent a cystoscopy in the past for evaluation of hematuria. Now she has incontinence of urine. She was wondering whether Botox will help with that. She is not trying different medications for bladder control.This is also making her depressed. She has chronic pain and patient also believes she may have fibromyalgia. oxycodone is barely controlling her symptoms. She avoids nonsteroidal anti-inflammatories. She has history of SVT and is followed by Cardiology which she thinks is under good control on current medication regimen which is also helping with her blood pressure. Her serum creatinine has been stable. She is also struggling with lack of proper support system for her, even though her nephew tries to help the best he can. Her mentation has been at baseline but she thinks she is forgetting lot more than before. [facility] Medical History Hypertension Urinary incontinence Anxiety Anxiety COVID-19 Osteoarthritis of right knee Essential hypertension SVT (supraventricular tachycardia) Depression History of kidney problems Paroxysmal SVT (supraventricular tachycardia) History of confusion Urgency of micturition Memory difficulties Arthritis History of dysphagia Multiple sclerosis GERD (gastroesophageal reflux disease) Anxiety Pain syndrome, chronic Disc degeneration, lumbar 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, bilateral Surgical History Hx of hysterectomy History of surgery on left wrist Deficient knowledge of leg surgery History of rotator cuff surgery History of left knee surgery History of myomectomy History of appendectomy Family History Mother Diabetes Kidney failure Father AAA (abdominal aortic aneurysm, ruptured) Family/Other Mental health disorder Substance use disorder Social History Household Members: Family Housing: House Are you a primary caregiver assisted living to a significant other at home: No Do you presently have visiting nurse or other home services: No (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 Patient Tobacco Use Status: Never used Tobacco e-Cigarette/Vaping Use: Never Used Second Hand Smoke Exposure: No Advance Directives Date on File: 05/16/21 service: No Current occupational status: retired and disabled Cognitive needs: Yes (walker) Hearing needs: No Vision needs: Yes (glasses) Review of Systems Const All systems reviewed & are unremarkable except as noted in HPI and below Telehealth Telehealth Telehealth Platform: Telephone Location of provider rendering services: practice address Location of patient: address on file Patient Identification confirmed using: Name, : Yes Telehealth method: voice only Patient verbally consented to treatment: Yes Patient verbally consented to billing insurance company: Yes Patient informed of any privacy concerns related to visit: No Minutes spent on Phone/Video with Pt.: 15 Results Reviewed Nephrology Results: Hgb 10.1 g/dl (12.0-16.0) L 07/20/24 WBC 5.7 X10*3/uL (4.8-10.8) 07/20/24 Plt Count 104 X10*3/uL (160-400) L 07/20/24 Sodium 138 mmol/L (135-145) 07/20/24 Potassium 3.5 mmol/L (3.3-5.1) 07/20/24 Chloride 111 mmol/L (96-108) H 07/20/24 Carbon Dioxide 22 mmol/L (22-29) 07/20/24 BUN 10 mg/dL (9-16) 07/20/24 Creatinine 0.76 mg/dL (0.5-1.4) 07/20/24 Calcium 7.8 mg/dL (8.4-10.2) L 07/20/24 Urine Protein Trace mg/dL (Neg-Trace) 07/18/24 Assessment & Plan Assessment & Plan (1) Hypertension: Code(s): I10 - Essential (primary) hypertension Category: Medical Qualifiers: Hypertension type: primary hypertension Qualified Code(s): I10 - Essential (primary) hypertension (2) Multiple sclerosis: Comment: Sees Dr Buitrago @ [facility] Code(s): G35 - Multiple sclerosis Category: Medical Plan She always had been at risk for excess ADH. Her serum sodium has been stable. Her blood pressure has been at goal on current medication regimen. She has not known to have any significant proteinuria. Her renal functions have been stable. She had been following up with urologist for her history of hematuria and incontinence. She was considered to get a Botox for her bladder issues. I did not make any other medication changes today. I referred her to Dr Sue Perez for management of her MS. Follow-up appointment given Orders: Orders Electrolytes 6 Months I10 - Essential (primary) hypertension Blood Urea Nitrogen 6 Months I10 - Essential (primary) hypertension Creatinine 6 Months I10 - Essential (primary) hypertension Referrals Neurology Referral G35 - Multiple sclerosis Coding Level of Care Code Tele Est Pt Level 4 (01915) Diagnoses Primary hypertension I10 Hypertension type: primary hypertension Multiple sclerosis G35
--- OUTSIDE RECORDS SUMMARY | 2024-08-04 16:14 | XMS_ITS | Encounter Summary ---
Author Organization [facility] Address [address] [place] [address] Care Team Providers Care Delivery Truck Driver Name Role Phone Drew Marc MD Primary Care Provider [phone] Reason for Referral * Consultation (Routine) - Pending Review Specialty Diagnoses / Procedures Referred By Donna stewart Referred To Contact Neurology Diagnoses Frontotemporal dementia (CMS/HCC) Estephania Anaya PA [address] [facility] [place], [place] [address] Phone: tel: fax: Referral ID Status Reason Start Date Expiration Date Visits Requested Visits Authorized [id number] Pending Review Specialty Services Required 07/08/2024 07/08/2025 1 1 Scheduling Instructions Please refer to dementia specialist at [facility] for evaluation of dementia-has been told she has frontotemporal dementia. Patient also has diagnosis of MS Encounter Details Date Type Department Care Team (Latest Contact Info) Description 07/07/2024 3:30 PM EST Office Visit [facility] - [address] [place] [address] Estephania Anaya PA [address] [facility] [place], [place] [address] Frontotemporal dementia (CMS/HCC) (Primary Dx) Social History Tobacco Use Types Packs/Day Years Used Date Smoking Tobacco: Never Smokeless Tobacco: Never Tobacco Cessation:Counseling Given: Not Answered Alcohol Use Standard Drinks/Week Comments No 0 (1 standard drink = 0.6 oz pur e alcohol) Comments Unknown Sex and Gender Information Value Date Recorded Sex Assigned at Not on file Legal Sex Female 7:49 AM EST Gender Identity Not on file Sexual Orientation Not on file documented as of this [...] RICHIE Haynes - 07/07/2024 3:30 PM EST [facility] CC: MS [...] states that she is working with her entertainment production professional (Esvin Milian) regarding this. Reporting significant joint [...] Disp: , Rfl: ergocalciferol (VITAMIN D2) capsule 30396 units, TAKE 1 CAPSULE BY MOUTH ONE [...] a referral to a dementia specialist at [facility] for further evaluation. She continues with her regular care team including psychiatry (Esvin Milian), nephrology (Dr. Godoy), cardiology, orthopedics, and PCP. To address concerns of home safety and questions regarding resources for assistance, I will reach out to our social services assistant Lyly and ask her to contact patient's [...] Milian) Low back pain: Continue following with [facility] pain [facility] Cervical disc disease/lumbar disc disease: has seen Dr. Baxter, will f/u if needed Patient was encouraged to [...] 90 minutes. The majority of the actual [id number] visit was spent counseling the patient with respect to the current neurological picture. Estephania Anaya PA-C documented in this encounter Plan of Treatment Upcoming Encounters Date Type Department Care Team (Late st Contact Info) Description 10/13/2024 3:30 PM EDT Office Visit [facility] [place] [address] [place] [address] Danelle Grant MD [address] [place] [id number] Scheduled Referrals Name Type Priority Associated Diagnoses Order Schedule Ambulatory referral to Neurology Outpatient Referral Routine Frontotemporal dementia (CMS/HCC) 1 Occurrences starting 07/08/2024 until 07/08/2025 documented as of this encounter Visit Diagnoses Diagnosis Frontotemporal dementia (CMS/HCC)- Primary documented in this encounter Discontinued Medications [...] may reflect changes made after this encounter. thiamine 100 mg tablet Take 10 mg [...] 11/21/2022 added in this encounter Care Teams Delivery Truck Driver Relationship Specialty Start Date End Date Drew Marc MD [facility] [address] [place] [address] [address] [place] [address] PCP - General Internal Medicine 08/10/20 documented as of this encounter
--- OUTSIDE RECORDS SUMMARY | 2024-08-04 16:14 | XMS_ITS | Clinical Summary ---
Author Organization [address] [place] [address] Address [address] [place] [address] Phone Care Team Providers Care Case Checker Name Role Phone Drew Marc MD Primary Care Provider [phone]- [phone] Allergies Active Allergy Reactions Criticality Noted Date Comments [place] Rash Low 05/29/2022 Hydrocodone Other 09/20/2020 Hydrocodone-Acetaminophen Nausea And Vomiting 0 2019 Morphine Other 09/20/2020 Nickel Other 09/20/2020 Ondansetron Hives 2019 Prochlorperazine Other 2019 Dystonic Tramadol 02/11/2020 Medications dilTIAZem (TIAZAC) 120 mg 24 hr capsule 1 Active ergocalciferol (VITAMIN D-2) 1,250 mcg (50,000 unit) capsule Take 1 capsule (50,000 Units total) by mouth 1 (one) time per week. 2 Active ibuprofen (ADVIL,MOTRIN) 200 mg tablet Take [...] by mouth 2 (two) times a day. 1 Active OXcarbazepine (TRILEPTAL) 150 mg tablet Take 1 tablet (150 mg total) by mouth 2 (two) times a day. 2 Active oxyCODONE (ROXICODONE) 5 mg immediate release tablet Take 1 tablet (5 mg total) by mouth 2 (two) times a day. Max Daily Amount: 10 mg 0 Active QUEtiapine (SEROquel) 25 mg tablet Take 4 tablets (100 mg total) by mouth at bedtime. 0 Active sertraline (ZOLOFT) 100 mg tablet TAKE 1 TABLET BY MOUTH 2 TIMES A DAY FOR 30 DAYS 2 Active baclofen (LIORESAL) 10 mg tablet TAKE 1 TABLET BY MOUTH IN MORNING AND TWO TABLETS AT NIGHT 270 tablet 1 4 Active dilTIAZem CD (CARDIZEM CD) 120 mg 24 hr capsule Take 1 capsule (120 mg total) by mouth 1 (one) time each day. 3 Active prazosin (MINIPRESS) 1 mg capsule Take 1 capsule (1 mg total) by mouth. at bedtime 5 Active zolpidem (AMBIEN) 5 mg tablet TAKE [...] by mouth 3 times daily as needed. 07/08/19 25 Discontinu ed(Therapy completed) zolpidem (AMBIEN) 10 mg tablet 1 tablet (10 mg total). 0 07/08/19 25 Discontinu ed(Therapy completed) solifenacin (VESICARE) 10 mg tablet Take 1 tablet (10 mg total) by mouth 1 (one) time each day. 07/08/19 25 Discontinu ed(Therapy completed) Active Problems Problem Noted Date Diagnosed Date Multiple sclerosis 07/18/2020 Back pain 10/26/2019 Headache 10/26/2019 Depression 10/26/2019 Encounters Date Type Department Care Team Description 07/15/2024 Telephone [facility] - [address] [address] Lyly De Jesus LCSW Multiple Sclerosis (/) 07/07/2024 3:30 PM EST Office Visit [address] [address] Estephania Anaya PA Frontotemporal dementia (CMS/HCC) (Primary Dx) 05/12/2024 3:00 PM EST Office Visit [address] [address] Estephania Anaya PA Multiple sclerosis (CMS/HCC) (Primary Dx) 05/04/[address] [address] Estephania Anaya PA from Last 3 [...] on file Sexual Orientation Not on file Obstetrics History Last Filed [...] Description 10/13/2024 3:30 PM EDT Office Visit [facility] [address] [place] [address] Danelle Grant MD [address] [place] [address] Health Maintenance Due Date Last Done Comments Breast Cancer Screening 1955 Zoster Vaccines (1 of 2) 09/17/2003 RSV Immunization Patients 60 + Years Old (1 - Risk 60-74 years 1-dose series) 2013 Pneumococcal Vaccine: 50+ Years (2 of 2 - PPSV23) 09/06/2020 09/07/2019 Cholesterol Screening (Lipid Panel) 05/30/2022 [...] patient's age to complete this topic Meningococcal B Vacine Aged Out No lo nger eligible based on patient's age to complete [...] BMP Blood Test astracted Historical Provider MD HEALTH MAINTENANCE Final Result from Last 3 Months or Most Recently Relevant to Health Maintenance Insurance MEDICAID - [place] [employer] MEDICARE Care Teams Case Checker Relationship Specialty Start Date End Date Drew Marc MD [facility] [address] [place] [address] PCP - General Internal Medicine 08/10/20
--- OUTSIDE RECORDS SUMMARY | 2024-08-04 16:14 | XMS_ITS | Clinical Summary ---
Author Organization [facility] Address [address] [place] [address] Phone Care Team Providers Care Opal Miner Name Role Phone Drew Marc MD Primary Care Provider + Allergies Active Allergy Reactions Criticality Noted Date Comments [place] Rash Low 05/29/2022 Hydrocodone Other (see comments) [...] 09/15/2020 Active ergocalciferol (VITAMIN D2) 1.25 MG (57876 UT) capsule Take 1 capsule by mouth [...] Personal/Family Self 1955 [address] [place] [address] MEDICAID [place] MEDICARE Care Teams Opal Miner Relationship Specialty Start Date End Date Drew Marc MD [facility] [address] [place] [address] [address] PCP - General 09/20/20
--- OUTSIDE RECORDS SUMMARY | 2024-08-04 16:14 | XMS_ITS | Encounter Summary ---
Author Organization [facility] Address [address] [place] [address] Care Team Providers Care Seafood Manager Name Role Phone Drew Marc MD Primary Care Provider +1- [phone] Reason for Visit * Reason Onset Date Comments Multiple Sclerosis 07/15/2024 Encounter Details Date Type Department Care Team (Late st Contact Info) Description 07/15/2024 Telephone [facility] [address] [address] Lyly De Jesus LCSW Multiple Sclerosis (/) [...] Description 10/13/2024 3:30 PM EDT Office Visit [facility] [address] [place] [address] Danelle Grant MD [address] [place] [address] documented as of this encounter Visit Diagnoses Not on filedocumented in this encounter Care Teams Seafood Manager Relationship Specialty Start Date End Date Drew Marc MD [address] [place] [address] PCP - General Internal Medicine 08/10/20 documented as of this encounter
--- OUTSIDE RECORDS SUMMARY | 2024-08-04 16:14 | XMS_ITS | Clinical Summary ---
Author Organization [facility] Address [address] [place] [address] Care Team Providers Care Cogeneration Technician Name Role Phone Drew Marc MD [...] 3 10/27/2023 Active ergocalciferol (VITAMIN D2) capsule 56509 units TAKE 1 CAPSULE BY MOUTH ONE [...] age to complete this topic Care Teams Cogeneration Technician Relationship Specialty Start Date End Date Drew Marc MD [address] [place] [address] Dr [address] [place] [id number] PCP - General Internal Medicine 08/10/20
== END 2024-08-04 16:23 | disposition home or self-care (01) ==
PROVIDERS: PCP Internal Medicine; Visit Provider Internal Medicine Nephrology
DX: I10 Essential (primary) hypertension (principal); G35 Multiple sclerosis
CPT/HCPCS: 99214

== ENCOUNTER → 2024-08-04 15:15 | Outpatient (BNVA) | payer MEDICARE, MEDICAID, SELFPAY | PROVIDERS: PCP Internal Medicine; Visit Provider Internal Medicine Nephrology ==

== ENCOUNTER 2024-08-30 15:10 | Emergency (ER) | payer MEDICARE, MEDICAID, SELFPAY ==
[2024-08-30 15:24] VITALS: BP 108/52; BP 138/84; PULSE 57; PULSE 72; RESP 20; TEMP 36.8; O2SAT 97; O2SAT 98; BMI 33.2
--- NOTE | 2024-08-30 15:54 | ECG_ITS ---
Test Reason : SEIZURE Blood Pressure : */* mmHG Vent. Rate : 54 BPM Atrial Rate : 54 BPM P-R Int : 292 ms QRS Dur : 88 ms QT Int : 476 ms P-R-T Axes : 101 19 71 degrees QTcB Int : 451 ms Sinus bradycardia with 1st degree A-V block Low voltage QRS Borderline ECG When compared with ECG of 17-Jul-2024 22:26, [place] interval has increased Vent. rate has decreased by 27 bpm Referred By: Suzanna Torres Electronically Signed By: GINO JACKSON
--- NOTE | 2024-08-30 16:20 | ED.GENADULT ---
HPI - General Adult General Chief complaint: Seizure Stated complaint: WIT SZ PER EMS Time Seen by Provider: 08/30/24 16:04 Source: patient and EMS Mode of arrival: EMS Limitations: no limitations History of Present Illness ED Provider: Dr. Indiana Garcia HPI narrative: Patient comes to the emergency room complaining of episode of dizziness and near-syncope that lasted for a few seconds. Patient states that she was in her wheelchair, states that she has a sensation that her head was going around in circles. Patient states that she was sitting in her wheelchair at the time with her [facility] nurse who reported that her eyes rolled backwards and had some tremors. Patient states that she believes that she was mostly awake but confused. It lasted a few seconds. Patient denies any postictal symptoms. Patient is adamant that she has not had any alcohol for over 2 months. Patient reports that she has history of MS, and frequently has episodes of vertigo. Patient states that she was hospitalized at the end of June for similar circumstance. At this time, patient states that she has no dizziness or room spinning chest pain or shortness of breath. Patient reports that she has had a constant pressure discomfort in the back of the head, it has been present since May. Patient denies any falls. Also, patient reports foul-smelling urine that started today Related Data Home Medications ?Medication ?Instructions ?Recorded ?Confirmed ergocalciferol (vitamin D2) 1,250 1,250 mcg PO BROWN@0900 06/05/20 08/30/24 mcg (50,000 unit) capsule solifenacin 10 mg tablet (Vesicare) 10 mg PO DAILY 07/25/23 08/30/24 sertraline 100 mg tablet 200 mg PO DAILY 10/09/23 08/30/24 quetiapine 100 mg tablet 100 mg PO BEDTIME 12/31/23 08/30/24 lorazepam 0.5 mg tablet 0.5 mg PO BID PRN anxiety 07/17/24 08/30/24 metoprolol tartrate 25 mg tablet 37.5 mg PO BID 07/17/24 08/30/24 omeprazole 20 mg capsule,delayed 20 mg PO BID@0630,1630 07/17/24 08/30/24 release oxcarbazepine 150 mg tablet 150 mg PO BID 07/17/24 08/30/24 prazosin 1 mg capsule 1 mg PO BEDTIME 07/17/24 08/30/24 zolpidem 10 mg tablet 10 mg PO BEDTIME PRN Insomnia 07/17/24 07/30/24 oxycodone 5 mg tablet 5 mg PO BID pain 08/04/24 08/30/24 Previous Rx's ?Medication ?Instructions ?Recorded folic acid 1 mg tablet 1 mg PO DAILY #90 tabs 07/01/24 oxcarbazepine 300 mg tablet 300 mg PO BID #180 tabs 07/01/24 loperamide 2 mg capsule 2 mg PO Q4H PRN diarrhea #30 caps 07/20/24 nystatin 100,000 unit/mL oral 5 ml PO QID #200 mL 07/20/24 suspension tizanidine 4 mg tablet 4 mg PO BID #60 tabs 08/04/24 meclizine 25 mg tablet 25 mg PO Q6H PRN vertigo #30 tabs 08/20/24 Allergies Allergy/AdvReac Type Severity Reaction Status Date / Time prochlorperazine [Compazine] Allergy Severe Dystonic Verified 08/30/24 16:19 Reaction cobalt [COBALT] Allergy Intermediate RASH Verified 08/30/24 16:19 hydrocodone [Vicodin] Allergy Intermediate Nausea and Verified 08/30/24 16:19 Vomiting nickel [NICKEL] Allergy Intermediate RASH Verified 08/30/24 16:19 ondansetron [Zofran] Allergy Intermediate Hives Verified 08/30/24 16:19 morphine AdvReac Intermediate Nausea and Verified 08/30/24 16:19 Vomiting Review of Systems Review of Systems: Constitutional : No Weight loss, No Fever, No Chills, No Night Sweats, No Fatigue, No Malaise ENT/Mouth : No Hearing loss, No Ear Pain, No Nasal Congestion, No Sinus Pain, No Hoarseness, No sore throat, No Rhinorrhea, No Swallowing Difficulty Eyes: No Eye Pain, No Swelling, No Redness, No Foreign Body, No Discharge, No Vision Changes Cardiovascular : No Chest Pain, No SOB, No Dyspnea on Exertion, No Orthopnea, No Edema, No Palpitations Respiratory : No Cough, No Sputum, No Wheezing, No Smoke Exposure, No Dyspnea Gastrointestinal : No Nausea, No Vomiting, No Diarrhea, No Constipation, No abdominal Pain, No Hematochezia, No Melena Genitourinary : Complaining of 1 episode of foul-smelling urine, No Dysuria, No Urinary Frequency, No Hematuria, No Urinary Incontinence, No Urgency, No Flank Pain, No Urinary Flow Changes, No Hesitancy Musculoskeletal : No joint pain, No Myalgias, No Joint Swelling Skin : No Skin Lesions, No rash Neuro : No Weakness, No Numbness, No Paresthesias, near-syncope episode with I rolling and tremors for a few seconds, no postictal state Psych : No Anxiety/Panic, No Depression, No SI/HI/AH/VH, No Social Issues, Heme/Lymph: No Bruising, No Bleeding,No Lymphadenopathy Endocrine : No Polyuria, No Polydipsia, No Temperature Intolerance [facility] Past Medical History Medical History Hypertension Urinary incontinence Anxiety Anxiety COVID-19 Osteoarthritis of right knee Essential hypertension SVT (supraventricular tachycardia) Depression History of kidney problems Paroxysmal SVT (supraventricular tachycardia) History of confusion Urgency of micturition Memory difficulties Arthritis History of dysphagia Multiple sclerosis GERD (gastroesophageal reflux disease) Anxiety Pain syndrome, chronic Disc degeneration, lumbar 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, bilateral Surgical History Hx of hysterectomy History of surgery on left wrist Deficient knowledge of leg surgery History of rotator cuff surgery History of left knee surgery History of myomectomy History of appendectomy Family History Family History Mother Diabetes Kidney failure Father AAA (abdominal aortic aneurysm, ruptured) Family/Other Mental health disorder Substance use disorder Social History Social History Household Members: Family Housing: House Are you a primary career developer to a significant other at home: No Do you presently have visiting nurse or other 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 Patient Tobacco Use Status: Never used Tobacco Smoked in Last 30 Days: No e-Cigarette/Vaping Use: Never Used Second Hand Smoke Exposure: No Use of substances other than those prescribed or required for medical reasons: No Advance Directives: Yes Advance Directives on File: Yes Advance Directives Date on File: 05/16/21 Do you have a plan to hurt others: No Plan service: No Current occupational status: retired and disabled Cognitive needs: Yes (walker) Hearing needs: No Vision needs: Yes (glasses) Physical Exam ED Vital Signs: Vital Signs - 24 hr 08/30/24 15:24 08/30/24 16:21 08/30/24 21:09 Temperature 98.3 F 98.3 F Pulse Rate 57 57 53 Respiratory Rate 20 20 Blood Pressure 108/52 L 108/52 L 137/56 L Pulse Oximetry 97 97 Oxygen Delivery Method Room Air Room Air 08/30/24 21:14 08/30/24 21:14 08/30/24 21:49 Temperature 97.4 F Pulse Rate 55 53 57 Respiratory Rate 16 Blood Pressure 150/67 H 136/66 136/53 L Pulse Oximetry 98 Oxygen Delivery Method Room Air 08/30/24 23:32 08/31/24 00:08 08/31/24 00:09 Temperature 98.1 F Pulse Rate 54 53 54 Respiratory Rate 16 Blood Pressure 153/67 H 156/59 H 164/69 H Pulse Oximetry 98 Oxygen Delivery Method Room Air 08/31/24 00:11 Temperature Pulse Rate 59 Respiratory Rate Blood Pressure 152/65 H Pulse Oximetry Oxygen Delivery Method BMI result Body Mass Index 33.2 Const Other: Appearance: Alert. Oriented X3. No acute distress. Eyes: Pupils equal, round and reactive to light. ENT: Pharynx normal. Neck: Normal inspection. Neck supple. No lymph nodes noted. No crepitus CVS: Normal heart rate and rhythm. Pulses normal. Normal S1 and S2 Respiratory: No respiratory distress. Breath sounds normal. No Wheezing. No rales Abdomen: Soft and nontender. No rigidity. No distention. Skin: Skin warm and dry. Normal skin color. Normal skin turgor. Extremities: No lower extremity edema. No Lacerations. No Rash Neuro: Oriented X 3. No motor deficit. No sensory deficit. Moving all extremities. Per patient, she has chronic slurred speech due to MS. CN 2 through 12 grossly intact Psych: calm, cooperative, normal affect Course Course Course Narrative: All of patient's labs are pending At this time, patient states that she feels back to baseline Medications Administered Discontinued Medications Generic Name Dose Route Start Last Admin Trade Name Bryce PRN Reason Stop Dose Admin Sodium Chloride 2,000 mls @ 999 mls/hr 08/30/24 21:37 08/31/24 00:02 Ns IVCONT 08/30/24 23:37 Infused .Q2H1M ONE Infusion Meclizine HCl 25 mg 08/30/24 21:38 08/30/24 21:48 Meclizine Hcl 25 Mg Tablet PO 08/30/24 21:39 25 mg ONCE ONE Administration Medical Decision Making Medical Decision Making [facility] Narrative: My interpretation of labs. No significant abnormality in patient's hematology and chemistry. Lactic normal, INR normal LFTs normal, CPK normal my ETOH negative, urinalysis negative. Patient's orthostatic vitals number rowley were negative. However patient did have a bit of dizziness. Patient receiving IV fluids. Patient has been doing well since she arrived here in the emergency room. Patient will receive IV fluids, likely had a vasovagal or orthostatic hypotension episode. Patient's urinalysis looks similar to the 1 in May 252023, I compare the patient's microbiology report, no bacterial growth. No antibiotics indicated at this time My interpretation of labs: Patient's hematology at baseline, chemistry does not show any acute abnormality. Patient received 2 L of IV fluids Orthostatics were repeated, negative, patient feeling better. It is unlikely that patient had a seizure. More likely, patient had a vasovagal syncope per the orthostatic hypotension. Patient states that since May she has had a fullness sensation in the posterior aspect of her head. I discussed with the patient that her CT scan of the head which was done towards the end of June, showed an unremarkable CT, patent head and neck CTA. At this time, no need to repeat brain imaging. Patient's CT/CTA in June was then when patient had already been symptomatic with head pressure for well over a month, and patient has no changes Of note, patient requested the information regarding her last note from psychiatry of 06/24/2024 regarding capacity. Patient was given the information regarding the name of the psychiatrist, date. Patient states that she would like to have a copy of that encounter. Patient requesting that in her discharge papers I write down the date of service when the capacity evaluation was done, so that she can requested through medical records. Differential Diagnosis Differential Diagnoses: The differential diagnosis associated with the presentation includes (Orthostatic hypotension, vasovagal syncope/near-syncope) Admission/Observation Consideration of admission/observation: Escalation of care including admission/observation considered (Given patient's past medical history and presentation, observation was considered) Lab Data MDM Lab Attestation statement: I reviewed the patient's lab results. 08/30/24 16:39 08/30/24 16:39 Labs: Lab Results 08/30/24 08/30/24 08/30/24 Range/Units 16:37 16:38 16:39 WBC 7.9 (4.8-10.8) X10*3/uL RBC 3.67 L (4.20-5.50) X10*6/uL Hgb 10.7 L (12.0-16.0) g/dl Hct 31.1 L (37.0-47.0) % MCV 84.7 (80.0-98.0) fL MCH 29.2 (27.0-33.0) pg MCHC 34.4 (31.0-35.0) g/dl RDW 12.5 (11.0-16.0) % Plt Count 208 D (160-400) X10*3/uL MPV 9.4 (9.4-12.3) fL Immature Gran % (Auto) 0.5 H (0.0-0.4) % Neut % (Auto) 64.0 (45-73) % Lymph % (Auto) 25.1 (20-40) % [place] % (Auto) 6.5 (2-11) % Eos % (Auto) 3.1 (0-4) % Baso % (Auto) 0.8 (0-2) % Lymph # (Auto) 2.0 (1.2-4.9) X10*3/uL [place] # (Auto) 0.5 (0.1-1.2) X10*3/uL Eos # (Auto) 0.3 (0.0-0.4) X10*3/uL Baso # (Auto) 0.1 (0.0-0.2) X10*3/uL Abs Immat Gran (auto) 0.04 H (0.00-0.03) X10*3/uL Absolute Neuts (auto) 5.1 (2.0-8.3) x10*3/uL Absolute Nucleated RBC 0.000 (0.0-0.012) X10*3/uL Nucleated RBC % (auto) 0.0 (0.0-0.2) /100WBC PT 11.8 (10.9-12.4) SEC INR 1.0 (0.9-1.1) VBG pH (7.32-7.43) VBG pCO2 mmHg VBG pO2 mmHg VBG HCO3 (22-26) mmol/L VBG O2 Saturation % VBG Base Excess mmol/L Sodium 140 (135-145) mmol/L Potassium 5.2 H D (3.3-5.1) mmol/L Chloride 110 H (96-108) mmol/L Carbon Dioxide 23 (22-29) mmol/L Anion Gap 12 (12-20) BUN 19 H (9-16) mg/dL Creatinine 0.87 (0.5-1.4) mg/dL Estim Creat Clear Calc 66.8 Estimated GFR > 60 Random Glucose 115 (60-115) mg/dL Lactic Acid 1.4 (0.5-2.0) mmol/L Calcium 8.5 D (8.4-10.2) mg/dL Magnesium 1.9 (1.6-2.6) mg/dL Total Bilirubin 0.2 (0.0-1.0) mg/dL AST 19 (5-31) U/L ALT 12 (0-31) U/L Alkaline Phosphatase 69 (39-117) U/L Ammonia 37 (13-55) umol/L Total Creatine Kinase 32 (26-140) U/L Total Protein 7.0 (6.5-8.0) g/dL Albumin 3.8 (3.5-5.0) g/dL Urine Color Urine Appearance Urine pH (5.0-9.0) Ur Specific [place] (1.005-1.025) Urine Protein (Neg-Trace) mg/dL Urine Glucose (UA) (Negative) mg/dL Urine Ketones (Negative) mg/dL Urine Blood (Negative) Urine Nitrite (Negative) Ur Leukocyte Esterase (Negative) Urine RBC (0-2) /HPF Urine WBC (0-5) /HPF Ur Squamous Epith Cells (0-2) /HPF Urine Bacteria (None Seen) Hyaline Casts (0-2) /LPF Urine Opiates Screen (Not Detect) Ur Buprenorphine Scrn (Not Detect) ng/mL Ur Oxycodone Screen (Not Detect) ng/mL Urine Methadone Screen (Not Detect) ng/mL Urine Fentanyl Screen (Not Detect) Ur Barbiturates Screen (Not Detect) Ur Phencyclidine Scrn (Not Detect) Ur Amphetamines Screen (Not Detect) U Benzodiazepines Scrn (Not Detect) Urine Cocaine Screen (Not Detect) U Marijuana (THC) Screen (Not Detect) Ethyl Alcohol < 10 mg/dL Influenza Type A (PCR) NEGATIVE (Negative) Influenza Type B (PCR) NEGATIVE (Negative) RSV RNA Qual (PCR) NEGATIVE (Negative) SARS-CoV-2 RNA (RT-PCR) NEGATIVE (Negative) 08/30/24 08/30/24 Range/Units 16:47 21:18 WBC (4.8-10.8) X10*3/uL RBC (4.20-5.50) X10*6/uL Hgb (12.0-16.0) g/dl Hct (37.0-47.0) % MCV (80.0-98.0) fL MCH (27.0-33.0) pg MCHC (31.0-35.0) g/dl RDW (11.0-16.0) % Plt Count (160-400) X10*3/uL MPV (9.4-12.3) fL Immature Gran % (Auto) (0.0-0.4) % Neut % (Auto) (45-73) % Lymph % (Auto) (20-40) % [place] % (Auto) (2-11) % Eos % (Auto) (0-4) % Baso % (Auto) (0-2) % Lymph # (Auto) (1.2-4.9) X10*3/uL [place] # (Auto) (0.1-1.2) X10*3/uL Eos # (Auto) (0.0-0.4) X10*3/uL Baso # (Auto) (0.0-0.2) X10*3/uL Abs Immat Gran (auto) (0.00-0.03) X10*3/uL Absolute Neuts (auto) (2.0-8.3) x10*3/uL Absolute Nucleated RBC (0.0-0.012) X10*3/uL Nucleated RBC % (auto) (0.0-0.2) /100WBC PT (10.9-12.4) SEC INR (0.9-1.1) VBG pH 7.39 (7.32-7.43) VBG pCO2 43 mmHg VBG pO2 58 mmHg VBG HCO3 26 (22-26) mmol/L VBG O2 Saturation 88.0 % VBG Base Excess 1.6 mmol/L Sodium (135-145) mmol/L Potassium (3.3-5.1) mmol/L Chloride (96-108) mmol/L Carbon Dioxide (22-29) mmol/L Anion Gap (12-20) BUN (9-16) mg/dL Creatinine (0.5-1.4) mg/dL Estim Creat Clear Calc Estimated GFR Random Glucose (60-115) mg/dL Lactic Acid (0.5-2.0) mmol/L Calcium (8.4-10.2) mg/dL Magnesium (1.6-2.6) mg/dL Total Bilirubin (0.0-1.0) mg/dL AST (5-31) U/L ALT (0-31) U/L Alkaline Phosphatase (39-117) U/L Ammonia (13-55) umol/L Total Creatine Kinase (26-140) U/L Total Protein (6.5-8.0) g/dL Albumin (3.5-5.0) g/dL Urine Color Yellow Urine Appearance Clear Urine pH 6.0 (5.0-9.0) Ur Specific [place] 1.025 (1.005-1.025) Urine Protein Negative (Neg-Trace) mg/dL Urine Glucose (UA) Negative (Negative) mg/dL Urine Ketones Negative (Negative) mg/dL Urine Blood Negative (Negative) Urine Nitrite Negative (Negative) Ur Leukocyte Esterase Small (1+) H (Negative) Urine RBC 0-2 (0-2) /HPF Urine WBC 11-20 H (0-5) /HPF Ur Squamous Epith Cells 0-2 (0-2) /HPF Urine Bacteria None Seen (None Seen) Hyaline Casts 0-2 (0-2) /LPF Urine Opiates Screen Not Detected (Not Detect) Ur Buprenorphine Scrn Not Detected (Not Detect) ng/mL Ur Oxycodone Screen Positive H (Not Detect) ng/mL Urine Methadone Screen Not Detected (Not Detect) ng/mL Urine Fentanyl Screen Not Detected (Not Detect) Ur Barbiturates Screen Not Detected (Not Detect) Ur Phencyclidine Scrn Not Detected (Not Detect) Ur Amphetamines Screen Not Detected (Not Detect) U Benzodiazepines Scrn Not Detected (Not Detect) Urine Cocaine Screen Not Detected (Not Detect) U Marijuana (THC) Screen Not Detected (Not Detect) Ethyl Alcohol mg/dL Influenza Type A (PCR) (Negative) Influenza Type B (PCR) (Negative) RSV RNA Qual (PCR) (Negative) SARS-CoV-2 RNA (RT-PCR) (Negative) Critical Care Time Critical Care Time Critical Care Time: Yes Total Critical Care Time: 60 Attestation: I have personally provided critical care time. Time includes review of lab data, radiology results, discussion with consultants, and monitoring for potential decompensation. Intervention performed as documented. Discharge Plan Discharge Clinical Impression: Near syncope Patient Disposition: Home, Self-Care Instructions: Near Syncope (ED) Additional Instructions: Please follow-up with your primary care physician tomorrow. If you have any worsening or new symptoms, please return to the emergency room or call 911. Per your request, here is the information regarding the date of your assessment for capacity. It was done on 06/24/2024, dictated by Dr. Freddy Mahoney Prescriptions: No Action tizanidine 4 mg tablet 4 mg PO BID Qty: 60 0RF meclizine 25 mg tablet 25 mg PO Q6H PRN (Reason: vertigo) Qty: 30 0RF zolpidem 10 mg tablet 10 mg PO BEDTIME PRN (Reason: Insomnia) oxcarbazepine 150 mg tablet 150 mg PO BID Rx Instructions: TAKE WITH 300 MG FOR TOTAL DOSE OF 450 MG BID prazosin 1 mg capsule 1 mg PO BEDTIME omeprazole 20 mg capsule,delayed release(/EC) 20 mg PO BID@0630,1630 metoprolol tartrate 25 mg tablet 37.5 mg PO BID lorazepam 0.5 mg tablet 0.5 mg PO BID PRN (Reason: anxiety) nystatin 100,000 unit/mL Suspension 5 ml PO QID Qty: 200 0RF loperamide 2 mg Capsule 2 mg PO Q4H PRN (Reason: diarrhea) Qty: 30 0RF folic acid 1 mg tablet 1 mg PO DAILY Qty: 90 0RF oxcarbazepine 300 mg tablet 300 mg PO BID Qty: 180 0RF Rx Instructions: TAKE 1 TABLET BY MOUTH TWICE A DAY WITH 150 MG TABLET FOR TOTAL DOSE = 450 MG. sertraline 100 mg tablet 200 mg PO DAILY quetiapine 100 mg tablet 100 mg PO BEDTIME ergocalciferol (vitamin D2) 1,250 mcg (50,000 unit) capsule 1,250 mcg PO BROWN@0900 solifenacin [Vesicare] 10 mg tablet 10 mg PO DAILY oxycodone 5 mg tablet 5 mg PO BID Rx Instructions: Partial Fill upon patient request. Print Language: Iranian
[2024-08-30 16:21] VITALS: BP 108/52; PULSE 57; RESP 20; TEMP 36.8; O2SAT 97
[2024-08-30 16:45] LABS: Basophils Absolute Auto 0.1 X10*3/uL (0.0-0.2); Basophils Percent Auto 0.8 % (0-2); Eosinophils Absolute Auto 0.3 X10*3/uL (0.0-0.4); Eosinophils Percent Auto 3.1 % (0-4); Hematocrit 31.1 % (37.0-47.0); Hemoglobin 10.7 g/dl (12.0-16.0); Imm Gran Abs Auto 0.04 X10*3/uL (0.00-0.03); Imm Gran Pct Auto 0.5 % (0.0-0.4); Lymphocytes Percent Auto 25.1 % (20-40); MANUAL DIFF FLAG NO; Mean Corpuscular HGB Conc 34.4 g/dl (31.0-35.0); Mean Corpuscular Hemoglobin 29.2 pg (27.0-33.0); Mean Corpuscular Volume 84.7 fL (80.0-98.0); Mean Platelet Volume 9.4 fL (9.4-12.3); Monocytes Absolute Auto 0.5 X10*3/uL (0.1-1.2); Monocytes Percent Auto 6.5 % (2-11); Neutrophils Absolute Auto 5.1 x10*3/uL (2.0-8.3); Platelet Count 208 X10*3/uL (160-400); Red Blood Count 3.67 X10*6/uL (4.20-5.50); Red Cell Distribution Width 12.5 % (11.0-16.0); White Blood Count 7.9 X10*3/uL (4.8-10.8)
[2024-08-30 16:50] LABS: Prothrombin Time 11.8 SEC (10.9-12.4)
[2024-08-30 16:51] LABS: Venous Blood Gas Refer to POC result
[2024-08-30 16:52] LABS: VBG Base Excess 1.6 mmol/L; VBG HCO3 26 mmol/L (22-26); VBG pCO2 43 mmHg; VBG pH 7.39 (7.32-7.43); VBG pO2 58 mmHg
[2024-08-30 16:56] LABS: Ammonia 37 umol/L (13-55)
[2024-08-30 17:06] LABS: Lactic Acid 1.4 mmol/L (0.5-2.0)
[2024-08-30 17:16] LABS: Alanine Aminotransferase 12 U/L (0-31); Albumin Level 3.8 g/dL (3.5-5.0); Alkaline Phosphatase 69 U/L (39-117); Anion Gap 12 (12-20); Aspartate Amino Transferase 19 U/L (5-31); Bilirubin Total 0.2 mg/dL (0.0-1.0); Blood Urea Nitrogen 19 mg/dL (9-16); Calcium 8.5 mg/dL (8.4-10.2); Carbon Dioxide 23 mmol/L (22-29); Chloride 110 mmol/L (96-108); Creatinine Clr Calc Pharmacy 66.8; Estimated Glomerular Filt Rate > 60; Ethanol < 10 mg/dL; Glucose Random 115 mg/dL (60-115); Magnesium 1.9 mg/dL (1.6-2.6); Potassium 5.2 mmol/L (3.3-5.1); Sodium 140 mmol/L (135-145)
[2024-08-30 17:24] LABS: Influenza A PCR NEGATIVE (Negative); Influenza B PCR NEGATIVE (Negative); Resp Syncy Virus RNA Qual PCR NEGATIVE (Negative); SARS COV2 PCR INHOUSE NEGATIVE (Negative)
--- OUTSIDE RECORDS SUMMARY | 2024-08-30 18:15 | XMS_ITS | Clinical Summary ---
Author Organization [address] [place] [address] Address [address] [place] [address] Phone Care Team Providers Care Extractor Operator Helper Name Role Phone Drew Marc MD Primary Care Provider [phone] Allergies Active Allergy Reactions Criticality Noted Date Comments [place] Rash Low 05/29/2022 Hydrocodone Other 09/20/2020 Hydrocodone-Acetaminophen Nausea And Vomiting 0 2019 Morphine Other 09/20/2020 Nickel Other 09/20/2020 Ondansetron Hives 2019 Prochlorperazine Other 2019 Dystonic Tramadol 02/11/2020 Medications dilTIAZem (TIAZAC) 120 mg 24 hr capsule 06/10/2021 Activ e ergocalciferol (VITAMIN D-2) 1,250 mcg (50,000 unit) [...] mouth 1 (one) time each day. Active Active Problems Problem Noted Date Diagnosed Date Multiple sclerosis 07/18/2020 Back pain 10/26/2019 Headache 10/26/2019 Depression 10/26/2019 Encounters Date Type Department Care Team Description 07/15/[address] [address] Lyly De Jesus LCSW Multiple Sclerosis (/) 07/07/2024 3:30 PM EST Office Visit [facility] [address] [facility] [address] [place] [address] Estephania Anaya PA Frontotemporal dementia (CMS/HCC) (Primary Dx) from Last 3 Months Surgical History Surgery [...] Description 10/13/2024 3:30 PM EDT Office Visit [facility] [address] [facility] [address] [facility] [address] [place] [address] Danelle Grant MD [address] [facility] [address] [place] [address] Health Maintenance Due Date Last [...] Test (02/14/2021) Annual BMP Blood Test astracted us Historical Provider HEALTH MAINTENANCE Final Result from Last 3 Months or Most Recently Relevant to Health Maintenance Insurance * Guarantor: Sarah Dash Account Type Relation to Patient Date of Phone Billing Address Personal/Family Self 1955 [address] [place] [id number] MEDICA[place] - [place] [employer] MEDICARE [employer] MEDICARE Care Teams Extractor Operator Helper Relationship Specialty Start Date End Date Drew Marc MD [address] [place] [address] PCP - General Internal Medicine 08/10/20
--- OUTSIDE RECORDS SUMMARY | 2024-08-30 18:15 | XMS_ITS | Clinical Summary ---
Author Organization [facility] Address [address] [place] [address] Phone Care Team Providers Care Vice President Consulting Services Name Role Phone Drew Marc MD Primary Care Provider + Allergies Active Allergy Reactions Criticality Noted Date Comments [place] Rash Low 05/29/2022 Hydrocodone Other (see comments) [...] 09/15/2020 Active ergocalciferol (VITAMIN D2) 1.25 MG (04085 UT) capsule Take 1 capsule by mouth [...] Personal/Family Self 1955 [address] [place] [address] MEDICAID OR UHC MEDICARE Care Teams Vice President Consulting Services Relationship Specialty Start Date End Date Drew Marc MD [facility] [address] [place] [address] [address] PCP - General 09/20/20
--- OUTSIDE RECORDS SUMMARY | 2024-08-30 18:15 | XMS_ITS | Clinical Summary ---
Author Organization [facility] Address [address] [place] [address] Care Team Providers Care Furniture Removalist'S Assistant Name Role Phone Drew Marc MD Primary [...] 3 10/27/2023 Active ergocalciferol (VITAMIN D2) capsule 21139 units TAKE 1 CAPSULE BY MOUTH ONE [...] age to complete this topic Care Teams Furniture Removalist'S Assistant Relationship Specialty Start Date End Date Drew Marc MD [address] [place] [address] Dr Stokes [address] [place] [id number] PCP - General Internal Medicine 08/10/20
[2024-08-30 21:09] VITALS: BP 137/56; PULSE 53
[2024-08-30 21:14] VITALS: BP 136/66; BP 150/67; PULSE 53; PULSE 55
[2024-08-30 21:28] LABS: Appearance Urine Clear; Color Urine Yellow; Glucose Urine UA Negative (Negative); Leukocyte Esterase Urine Small (1+) (Negative); Nitrite Urine Negative (Negative); Specific Gravity - Urine 1.025 (1.005-1.025); UMIC TRIGGER UACC YES; Urine Blood Negative (Negative); Urine Ketones Negative (Negative); Urine Protein Negative (Neg-Trace)
[2024-08-30 21:31] LABS: Bacteria Urine None Seen (None Seen); Hyaline Casts Urine 0-2 /LPF (0-2); RBC Urine 0-2 /HPF (0-2); Squamous Epithelial Cell Urine 0-2 /HPF (0-2); UACC Culture Trigger YES
[2024-08-30 21:37] LABS: Amphetamine Screen Urine Not Detected (Not Detect); Barbiturates, Urine Not Detected (Not Detect); Benzodiazepines Screen Urine Not Detected (Not Detect); Buprenorphine Scr Not Detected (Not Detect); Cannabinoid Screen Urine Not Detected (Not Detect); Cocaine Screen Urine Not Detected (Not Detect); Fentanyl, urine Not Detected (Not Detect); Methadone Screen, Urine Not Detected (Not Detect); Opiate Screen Urine Not Detected (Not Detect); Oxycodone Screen Urine Positive (Not Detect); Phencyclidine Screen Urine Not Detected (Not Detect)
[2024-08-30] MEDS: 0.9 % Sodium Chloride 2,000 ML 999 ML IVCONT (21:48)
[2024-08-30] MEDS: Meclizine HCl 25 MG TABLET PO (21:48)
[2024-08-30 21:49] VITALS: BP 136/53; PULSE 57; RESP 16; TEMP 36.3; O2SAT 98
[2024-08-30 23:32] VITALS: BP 153/67; PULSE 54; RESP 16; TEMP 36.7; O2SAT 98
[2024-08-31 00:08] VITALS: BP 156/59; PULSE 53
[2024-08-31 00:09] VITALS: BP 164/69; PULSE 54
[2024-08-31 00:11] VITALS: BP 152/65; PULSE 59
[2024-08-31 01:42] VITALS: BP 153/57; PULSE 57; RESP 16; TEMP 36.8; O2SAT 98
[2024-08-31] MEDS: LORazepam 0.5 MG TABLET PO (02:04)
[2024-08-31] MEDS: oxyCODONE HCl Immed Release 5 MG TABLET PO (02:04)
[2024-08-31 02:10] VITALS: BP 153/57; PULSE 57; RESP 16; TEMP 36.8; O2SAT 98
== END 2024-08-31 02:11 | disposition home or self-care (01) ==
PROVIDERS: Physician Assistant Medical; Emergency Provider Emergency Medicine; PCP Internal Medicine
DX: R55 Syncope and collapse (principal); G35 Multiple sclerosis; I10 Essential (primary) hypertension; Z03.818 Encounter for observation for suspected exposure to other biological agents ruled out; Z79.899 Other long term (current) drug therapy
CPT/HCPCS: 0241U; 36415; 80053; 80307; 81001; 82140; 82550; 82803; 83605; 83735; 85025; 85610; 87086; 93005; 96360; 96361; 99285

== ENCOUNTER → 2024-08-30 15:54 | Outpatient (BNV) | payer MEDICARE, MEDICAID, SELFPAY | PROVIDERS: Emergency Provider Emergency Medicine; PCP Internal Medicine; Visit Provider Internal Medicine | DX: I44.0 Atrioventricular block, first degree (principal); R00.1 Bradycardia, unspecified | CPT/HCPCS: 93010 ==

== ENCOUNTER 2024-09-01 15:58 | Outpatient (REF) | payer MEDICARE, MEDICAID, SELFPAY ==
--- NOTE | ~2024-09-01 | US_ITS ---
EXAMINATION: US THYROID HISTORY: E04.1 - Nontoxic single thyroid nodule TECHNIQUE: Real-time grayscale ultrasound imaging was performed and images were reviewed. COMPARISON: Correlation is made with a CT angiogram of the neck dated 07/17/2024. FINDINGS: SIZE: The right thyroid lobe measures 5.3 x 2.0 x 2.1 cm. The left thyroid lobe measures 3.7 x 2.1 x 1.6 cm. The isthmus measures 6 mm. FLOW: Flow to the gland is increased on the right on the left. ECHOGENICITY: The echotexture of the gland is heterogeneous on the right and more homogeneous on the left. NODULES: Multiple nodules are identified as described below: Nodule #: 1 Location: Mid to lower pole of the right thyroid lobe measuring 2.7 x 1.8 x 2.0 cm Shape: Wider than tall (0 points) Margins: Smooth (0 points) Echotexture: Isoechoic (1 point) Composition: Solid (2 points) Calcifications: Punctate calcifications (3 points) Total points: 6 TIRADS: TR4: Moderately suspicious. Nodule #: 2 Location: Interpolar region of the left thyroid lobe measuring 10 x 8 x 9 mm Shape: Wider than tall (0 points) Margins: Ill-defined (0 points) Echotexture: Isoechoic (1 point) Composition: Solid (2 points) Calcifications: None (0 points) Total points: 3 TIRADS: TR3: Mildly suspicious. Nodule #: 3 Location: Interpolar region of the left thyroid lobe measuring 3 x 3 x 3 mm Shape: Round (0 points) Margins: Ill-defined (0 points) Echotexture: Hypoechoic (2 points) Composition: Solid (2 points) Calcifications: None (0 points) Total points: 4 TIRADS: TR4: Moderately suspicious. Nodule #: 4 Location: Lower pole of the left thyroid lobe measuring 6 x 3 x 4 mm Shape: Wider than tall (0 points) Margins: Smooth (0 points) Echotexture: Isoechoic (1 point) Composition: Solid (2 points) Calcifications: None (0 points) Total points: 3 TIRADS: TR3: Mildly suspicious. US/US thyroid IMPRESSION: Multiple bilateral thyroid nodules as described. Ultrasound-guided fine-needle aspiration of the dominant 2.7 x 1.8 x 2.0 cm right thyroid nodule is recommended. ACR TI-RADS Guidelines TR1: Benign, No follow-up or biopsy required TR2: Not Suspicious, No biopsy indicated TR3: Mildly Suspicious, FNA if >= 2.5 cm, Follow if >= 1.5 cm TR4: Moderately Suspicious, FNA if >= 1.5 cm, Follow if >= 1.0 cm TR5: Highly Suspicious, FNA if >= 1.0 cm, Follow if >= 0.5 cm Electronically signed by: Dewey Calvillo MD 09/02/2024 08:09 AM EDT
--- OUTSIDE RECORDS SUMMARY | 2024-09-01 18:29 | XMS_ITS | Clinical Summary ---
Author Organization [facility] Address [address] [place] [address] Care Team Providers Care Infrastructure Consultant Name Role Phone Drew Marc MD Primary [...] 3 10/27/2023 Active ergocalciferol (VITAMIN D2) capsule 35268 units TAKE 1 CAPSULE BY MOUTH ONE [...] age to complete this topic Care Teams Infrastructure Consultant Relationship Specialty Start Date End Date Drew Marc MD [address] [place] [address] Dr Stokes [address] [place] [id number] PCP - General Internal Medicine 08/10/20
--- OUTSIDE RECORDS SUMMARY | 2024-09-01 18:29 | XMS_ITS | Clinical Summary ---
Author Organization [facility] Address [address] [place] [address] Phone Care Team Providers Care Crm Marketing Analyst Name Role Phone Drew Marc MD Primary Care Provider + Allergies Active Allergy Reactions Criticality Noted Date Comments [place] Rash Low 05/29/2022 Hydrocodone Other (see comments) [...] 09/15/2020 Active ergocalciferol (VITAMIN D2) 1.25 MG (78029 UT) capsule Take 1 capsule by mouth [...] Personal/Family Self 1955 [address] [place] [address] [place] Care Teams Crm Marketing Analyst Relationship Specialty Start Date End Date Drew Marc MD [facility] [address] [place] [address] [id number] PCP - General 09/20/20
--- OUTSIDE RECORDS SUMMARY | 2024-09-01 18:29 | XMS_ITS | Clinical Summary ---
Author Organization [address] [place] [address] Address [address] [place] [address] Phone Care Team Providers Care Fan Mail Editor Name Role Phone Drew Marc MD Primary Care Provider +1- [phone] Allergies Active Allergy Reactions Criticality Noted Date Comments [place] Rash Low 05/29/2022 Hydrocodone Other 09/20/2020 Hydrocodone-Acetaminophen [...] Type Department Care Team Description 07/15/[address] [address] Lyly De Jesus LCSW Multiple Sclerosis (/) 07/07/2024 3:30 PM EST Office Visit [facility] [address] [facility] [address] [place] [address] Estephania Anaya PA Frontotemporal dementia [...] Team (Late st Contact Info) Description 10/13/2024 2:30 PM EDT Office Visit [facility] [address] [place] [address] Estephania Anaya, RICHIE [address] [place] [address] [place] [address] Health Maintenance Due Date Last Done Comments [...] Billing Address Personal/Family Self 1955 [address] [place] [address] MEDICAID - [place] [employer] MEDICARE [employer] MEDICARE Care Teams Fan Mail Editor Relationship Specialty Start Date End Date Drew Marc MD [address] [place] [address] PCP - General Internal Medicine 08/10/20
== END 2024-09-01 15:59 | disposition home or self-care (01) ==
LOC: HO.US 15:58
PROVIDERS: PCP Internal Medicine
DX: E04.1 Nontoxic single thyroid nodule (principal)
CPT/HCPCS: 76536

== ENCOUNTER → 2024-09-01 16:00 | Outpatient (BNV) | payer MEDICARE, MEDICAID, SELFPAY | PROVIDERS: PCP Internal Medicine; Visit Provider Radiology Diagnostic Radiology | DX: E04.1 Nontoxic single thyroid nodule (principal) | CPT/HCPCS: 76536 ==

== ENCOUNTER 2024-09-02 15:38 | Outpatient (AMB) | payer MEDICARE, MEDICAID, SELFPAY ==
--- NOTE | 2024-09-02 15:43 | MHC.PC.OV ---
Vital Signs 09/02/24 15:46 Height 5 ft 5 in Weight 222 lb 10.67 oz BMI 37.0 BP 140/90 H Blood Pressure Location Lt brachial Position Sitting Pulse 70 Pulse Source Pulse Oximeter Temp 97.4 F Temp Source Temporal Artery Scan Pulse Oximetry (%) 92 Oxygen Delivery Method Room Air Intake Visit Reasons: 3 month f/u Intake Note: Patient is here to follow up on HTN, CKD, Chronic pain. It Software Engineer Required: No Medical Doctor Md: Not Required per policy Accompanied by: Self / Same As Patient Allergies prochlorperazine [Compazine] Allergy (Severe, Verified 09/02/24 17:27) Dystonic Reaction cobalt [COBALT] Allergy (Intermediate, Verified 09/02/24 17:27) RASH hydrocodone [Vicodin] Allergy (Intermediate, Verified 09/02/24 17:27) Nausea and Vomiting nickel [NICKEL] Allergy (Intermediate, Verified 09/02/24 17:27) RASH ondansetron [Zofran] Allergy (Intermediate, Verified 09/02/24 17:27) Hives morphine Adverse Reaction (Intermediate, Verified 09/02/24 17:27) Nausea and Vomiting Medication List - Last Reconciled 09/02/24 by Drew Marc MD ergocalciferol (vitamin D2) 1,250 mcg PO BROWN@0900 folic acid 1 mg PO DAILY loperamide 2 mg PO Q4H PRN lorazepam 0.5 mg PO BID PRN meclizine 25 mg PO Q6H PRN metoprolol tartrate 37.5 mg PO BID nystatin 5 mL PO QID omeprazole 20 mg PO BID@0630,1630 oxcarbazepine 300 mg PO BID oxcarbazepine 150 mg PO BID oxycodone 5 mg PO BID prazosin 1 mg PO BEDTIME quetiapine 100 mg PO BEDTIME sertraline 200 mg PO DAILY solifenacin (Vesicare) 10 mg PO DAILY tizanidine 4 mg PO BID zolpidem 10 mg PO BEDTIME PRN Tobacco use date assessed: 09/02/24 Fall risk assessment: 1 Fall in past year Last assessed Fall Risk: 09/02/24 Dental Screening Dental Screen Date: 07/30/24 HPI HPI Comments History of Present Illness Details 68-year-old female presents to the office to discuss her chronic medical conditions. Patient comes alone in a wheelchair. Her nephew drove her to the office appointment. In the exam room she is alone. Patient reports that while getting ready and coming to the office today, she banged her foot on the curb. Complaining of pain in the left foot. Since the last office visit, patient has had multiple visits to the emergency room. She has complained of dizziness. In the 1st ER visit, patient had rhabdomyolysis and encephalopathy. Her blood alcohol was positive. Patient reports she has been abstaining from alcohol in the past few months. She had 2 more visits to the emergency room with dizziness. She was diagnosed with positional vertigo and postural hypotension. Patient underwent diagnostic testing which was unremarkable. Patient continues to have chronic pain. She continues to see the neurologist at [facility] for multiple sclerosis. Occasionally she is incontinent to urine. 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, bilateral Surgical History Hx of hysterectomy History of surgery on left wrist Deficient knowledge of leg surgery History of rotator cuff surgery History of left knee surgery History of myomectomy History of appendectomy Family History Mother Diabetes Kidney failure Father AAA (abdominal aortic aneurysm, ruptured) Family/Other Mental health disorder Substance use disorder Social History Household Members: Family Housing: House Are you a primary rn homecare to a significant other at home: No Do you presently have visiting nurse or 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 Patient Tobacco Use Status: Never used Tobacco e-Cigarette/Vaping Use: Never Used Second Hand Smoke Exposure: No Advance Directives Date on File: 05/16/21 service: No Current occupational status: retired and disabled Cognitive needs: Yes (walker) Hearing needs: No Vision needs: Yes (glasses) Questionnaire Thrive Questionnaire Date Thrive assessed: 07/18/24 ARNAUD-7 AMB Questionnaire ARNAUD-7 Date ARNAUD - 7 assessed: 07/15/24 Source: Developed by Drs. Dewey Angel, Cherie Mei, Dilan Giordano and colleagues, with an educational domingo from [employer]. Physical exam (Primary Care) Vital Signs: Last Vital Signs Temp 97.4 F 09/02/24 15:46 Pulse 70 09/02/24 15:46 BP 140/90 H 09/02/24 15:46 Pulse Ox 92 09/02/24 15:46 Oxygen Delivery Method Room Air 09/02/24 15:46 Care Plan Goal for BP management: Blood pressure is in range. Continue medications at same dosage. BMI result Body Mass Index 37.0 BMI Assessment/Plan discussion: High (1 lb per week weight loss suggested.) Tobacco/Smoking Status: Tobacco use Status Tobacco use date assessed 09/02/24 09/02/24 15:55 Patient Tobacco Use Status Never used Tobacco 09/02/24 15:43 e-Cigarette/Vaping Use Never Used 09/02/24 15:43 Thrive Assessment: Date of Thrive Assessment Date Thrive assessed 07/18/24 09/02/24 15:43 Advance Care Planning discussion: Exists, not on file Date of discussion: 09/02/24 Who was present: Patient Const General: cooperative and healthy appearing Nutritional Appearance: well nourished Orientation/consciousness: patient oriented x3 Limitations: no limitations HENMT Head: Yes normal to inspection Eyes General: appearance normal, both eyes and all related structures Neck Neck: Yes normal visual inspection Chest Chest palpation & inspection: normal palpation of entire chest wall Resp Effort & Inspection: normal respiratory effort Neuro General: patient oriented x3 Extrem Other: Right foot: Pain on flexion at the ankle. Coding Level of Care Code Est Pt Level 4 (41972) Complex EM visit Add On G2211 Diagnoses Contusion of foot, left S90.32XA Anxiety F41.9 AA (alcohol abuse) F10.10 Primary hypertension I10 Hypertension type: primary hypertension Vertigo R42 Additional Codes Vital Signs *Quality* - Advance Care Planning discussion: Exists, not on file ([id number]) Assessment & Plan Assessment & Plan (1) Contusion of foot, left: Code(s): S90.32XA - Contusion of left foot, initial encounter Plan: X-ray of the foot has been ordered. (2) Anxiety: Code(s): F41.9 - Anxiety disorder, unspecified Category: Medical Plan: Condition is at baseline. Patient sees a psychiatrist. (3) AA (alcohol abuse): Code(s): F10.10 - Alcohol abuse, uncomplicated Category: Social Hx Plan: This condition has resolved. In her recent ER visit, patient had a tox screen which was negative for alcohol. (4) Hypertension: Code(s): I10 - Essential (primary) hypertension Category: Medical Qualifiers: Hypertension type: primary hypertension Qualified Code(s): I10 - Essential (primary) hypertension Plan: Continue medications at same dosage. (5) Vertigo: Code(s): R42 - Dizziness and giddiness Category: Medical Plan: Her dizziness has been attributed to vertigo. Patient was encouraged to see her neurologist at [facility]. Orders: Orders XR foot LT 2V Today S90.32XA - Contusion of left foot, initial encounter
[2024-09-02 15:46] VITALS: BP 140/90; PULSE 70; TEMP 36.3; O2SAT 92; BMI 37.0
--- OUTSIDE RECORDS SUMMARY | 2024-09-02 19:08 | XMS_ITS | Clinical Summary ---
Author Organization [facility] Address [address] [place] [address] Phone Care Team Providers Care Buckle Assembler Name Role Phone Drew Marc MD Primary Care Provider + Allergies Active Allergy Reactions Criticality Noted Date Comments [place] Rash Low 05/29/2022 Hydrocodone Other (see comments) [...] 09/15/2020 Active ergocalciferol (VITAMIN D2) 1.25 MG (32091 UT) capsule Take 1 capsule by mouth [...] Personal/Family Self 1955 [address] [place] [address] MEDICAID [place] UHC MEDICARE Care Teams Buckle Assembler Relationship Specialty Start Date End Date Drew Marc MD [facility] [address] [place] [address] [address] PCP - General 09/20/20
--- OUTSIDE RECORDS SUMMARY | 2024-09-02 19:08 | XMS_ITS | Clinical Summary ---
Author Organization [address] [place] [address] Address [address] [place] [address] Phone Care Team Providers Care Molder Vacuum Name Role Phone Drew Marc MD Primary Care Provider +1- [phone] Allergies Active Allergy Reactions Criticality Noted Date Comments [place] Rash Low 05/29/2022 Hydrocodone Other 09/20/2020 Hydrocodone-Acetaminophen [...] Type Department Care Team Description 07/15/[address] [address] Lyly De Jesus LCSW Multiple Sclerosis (/) 07/07/2024 3:30 PM EST Office Visit [facility] [address] [facility] [address] [place] [address] Estephania Anaya PA Frontotemporal dementia [...] Description 10/13/2024 2:30 PM EDT Office Visit [facility] [address] [place] [address] Estephania Anaya, RICHIE [address] [place] [address] [place] [address] Health Maintenance Due Date Last Done Comments [...] Personal/Family Self 1955 [address] [place] [address] [place] - [place] [employer] MEDICARE [employer] MEDICARE Care Teams Molder Vacuum Relationship Specialty Start Date End Date Drew Marc MD [address] [place] [address] PCP - General Internal Medicine 08/10/20
--- OUTSIDE RECORDS SUMMARY | 2024-09-02 19:08 | XMS_ITS | Clinical Summary ---
Author Organization [facility] Address [address] [place] [address] Care Team Providers Care Global Marketing Specialist Name Role Phone Drew Marc MD Primary [...] 3 10/27/2023 Active ergocalciferol (VITAMIN D2) capsule 44658 units TAKE 1 CAPSULE BY MOUTH ONE [...] age to complete this topic Care Teams Global Marketing Specialist Relationship Specialty Start Date End Date Drew Marc MD [address] [place] [address] Dr Stokes [address] [place] [id number] PCP - General Internal Medicine 08/10/20
== END 2024-09-02 16:54 | disposition home or self-care (01) ==
LOC: HO.HMCH 15:38
PROVIDERS: PCP Internal Medicine; Visit Provider Internal Medicine
DX: S90.32XA Contusion of left foot, initial encounter (principal); F41.9 Anxiety disorder, unspecified; F10.10 Alcohol abuse, uncomplicated; I10 Essential (primary) hypertension; R42 Dizziness and giddiness; Z00.00 Encounter for general adult medical examination without abnormal findings

== ENCOUNTER → 2024-09-02 15:38 | Outpatient (BNVA) | payer MEDICARE, MEDICAID, SELFPAY | PROVIDERS: PCP Internal Medicine; Visit Provider Internal Medicine | DX: S90.32XD Contusion of left foot, subsequent encounter (principal); F41.9 Anxiety disorder, unspecified; F10.10 Alcohol abuse, uncomplicated; R42 Dizziness and giddiness; I10 Essential (primary) hypertension | CPT/HCPCS: 99212 ==

== ENCOUNTER 2024-09-03 17:59 | Emergency (ER) | payer MEDICARE, MEDICAID, SELFPAY ==
--- NOTE | ~2024-09-03 | XR_ITS ---
CLINICAL HISTORY: pain, injury 3 view left foot Comparison: CR - XR ANKLE LT MIN 3V - 09/03/24 18:51 EDT Findings: Acute appearing fracture without displacement involving the proximal phalanx of the 2nd digit at the metatarsophalangeal joint. Degenerative changes of the 1st metatarsophalangeal joint. No ankle effusion. No radiopaque foreign body. IMPRESSION: 1. Acute fracture involving the proximal phalanx of the 2nd digit at the metatarsophalangeal joint. 2. Advanced degenerative change at the 1st metatarsophalangeal joint This document has been electronically signed by: Radha Gonzalez MD on 09/03/2024 19:33:59
--- NOTE | ~2024-09-03 | XR_ITS ---
CLINICAL HISTORY: pain, injury 2 view left ankle Comparison: None Findings: Bones intact. Old tibial fracture. No dislocations. Degenerative changes of the ankle. Mild diffuse soft tissue swelling. No radiopaque foreign body. IMPRESSION: 1. Old tibial fracture with degenerative changes of the ankle. No acute fracture identified This document has been electronically signed by: Radha Gonzalez MD on 09/03/2024 19:31:21
[2024-09-03 18:11] VITALS: BP 142/82; PULSE 64; O2SAT 96
--- NOTE | 2024-09-03 18:26 | ED_ITS ---
HPI - General Adult General Chief complaint: Fall Stated complaint: rolled ankle on friday Time Seen by Provider: 09/03/24 18:26 Source: patient and EMS Mode of arrival: EMS Limitations: no limitations History of Present Illness ED Provider: Suzanna Torres PA-C HPI narrative: Patient is a 68 year old assigned female at with a history of HTN, CKD, anxiety, SVT, MS - progressing + now in wheelchair, CPS, and depression presenting to the emergency department today with left foot pain after a misstep off a curb. Patient states that on 09/02/2024 she stepped off a curb incorrectly and felt her left foot snap / pop. Patient states that she has been unable to bear weight on that foot ever since but has been using a wheelchair more often at baseline. Patient denies any head strike with the incident, any loss of consciousness with the incident, dizziness, lightheadedness, abdominal pain, nausea, vomiting, fever, chills, blurry vision, double vision, loss of vision, chest pain, difficulty breathing, shortness of breath, back pain, night sweats, pain with urination, increased urinary frequency, increased urinary urgency, blood in her urine or stool, syncope or a near syncopal episode, bowel incontinence, bladder incontinence, or any other complaints at this time. Onset (ago): day(s) (1) Location: left and lower extremity (foot) Relieving factors: none Exacerbating factors: none Associated symptoms: denies other symptoms Treatments prior to arrival: none Related Data Home Medications ?Medication ?Instructions ?Recorded ?Confirmed ergocalciferol (vitamin D2) 1,250 1,250 mcg PO BROWN@0900 06/05/20 08/30/24 mcg (50,000 unit) capsule solifenacin 10 mg tablet (Vesicare) 10 mg PO DAILY 07/25/23 08/30/24 sertraline 100 mg tablet 200 mg PO DAILY 10/09/23 08/30/24 quetiapine 100 mg tablet 100 mg PO BEDTIME 12/31/23 08/30/24 lorazepam 0.5 mg tablet 0.5 mg PO BID PRN anxiety 07/17/24 08/30/24 metoprolol tartrate 25 mg tablet 37.5 mg PO BID 07/17/24 08/30/24 omeprazole 20 mg capsule,delayed 20 mg PO BID@0630,1630 07/17/24 08/30/24 release oxcarbazepine 150 mg tablet 150 mg PO BID 07/17/24 08/30/24 prazosin 1 mg capsule 1 mg PO BEDTIME 07/17/24 08/30/24 zolpidem 10 mg tablet 10 mg PO BEDTIME PRN Insomnia 07/17/24 07/30/24 Previous Rx's ?Medication ?Instructions ?Recorded folic acid 1 mg tablet 1 mg PO DAILY #90 tabs 07/01/24 oxcarbazepine 300 mg tablet 300 mg PO BID #180 tabs 07/01/24 loperamide 2 mg capsule 2 mg PO Q4H PRN diarrhea #30 caps 07/20/24 nystatin 100,000 unit/mL oral 5 ml PO QID #200 mL 07/20/24 suspension tizanidine 4 mg tablet 4 mg PO BID #60 tabs 08/04/24 meclizine 25 mg tablet 25 mg PO Q6H PRN vertigo #30 tabs 08/20/24 oxycodone 5 mg tablet 5 mg PO BID pain #60 tabs 09/01/24 Allergies Allergy/AdvReac Type Severity Reaction Status Date / Time prochlorperazine [Compazine] Allergy Severe Dystonic Verified 09/03/24 19:01 Reaction cobalt [COBALT] Allergy Intermediate RASH Verified 09/03/24 19:01 hydrocodone [Vicodin] Allergy Intermediate Nausea and Verified 09/03/24 19:01 Vomiting nickel [NICKEL] Allergy Intermediate RASH Verified 09/03/24 19:01 ondansetron [Zofran] Allergy Intermediate Hives Verified 09/03/24 19:01 morphine AdvReac Intermediate Nausea and Verified 09/03/24 19:01 Vomiting Review of Systems Constitutional: Constitutional: Reports no additional constitutional complaints, Denies chills, Denies fever(s) and Denies night sweats Eyes: Eyes: Reports no additional eye complaints, Denies blurry vision, Denies change in vision, Denies diplopia, Denies eye discharge, Denies loss of vision and Denies eye pain ENT: Denies dizziness Cardiovascular: Cardiovascular: Reports no additional cardiovascular complaints, Denies chest pain, Denies lightheadedness, Denies Loss of Consciousness and Denies dyspnea Respiratory: Respiratory: Reports no additional respiratory complaints and Denies dyspnea Gastrointestinal: Gastrointestinal: Reports no additional gastrointestinal complaints, Denies abdominal pain, Denies melena, Denies hematochezia, Denies change in bowel habits and Denies change in stool character Genitourinary: Genitourinary: Denies hematuria, Denies urinary frequency, Denies dysuria, Denies urinary incontinence, Denies urinary hesitancy and Denies urinary urgency Musculoskeletal: Musculoskeletal: Reports no additional musculoskeletal complaints, Denies numbness and Denies tingling Comments: left foot pain Neurologic: Denies dizziness, Denies loss of vision, Denies numbness and Denies tingling Psychiatric: Psychiatric: Reports no additional psychiatric complaints Endocrine: Endocrine: Reports no additional endocrine complaints Hematologic/Lymphatic: Hematologic/Lymphatic: Reports no additional hematologic/lymphatic complaints Allergic/Immunologic: Allergic/Immunologic: Reports no additional allergic/immunologic complaints [facility] Past Medical History Attestation statement: The following information was validated with the patient. Source: old records reviewed and nursing notes reviewed Medical History Hypertension Urinary incontinence Anxiety Anxiety COVID-19 Osteoarthritis of right knee Essential hypertension SVT (supraventricular tachycardia) Depression History of kidney problems Paroxysmal SVT (supraventricular tachycardia) History of confusion Urgency of micturition Memory difficulties Arthritis History of dysphagia Multiple sclerosis GERD (gastroesophageal reflux disease) Anxiety Pain syndrome, chronic Disc degeneration, lumbar 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, bilateral Surgical History Hx of hysterectomy History of surgery on left wrist Deficient knowledge of leg surgery History of rotator cuff surgery History of left knee surgery History of myomectomy History of appendectomy Family History Family History Mother Diabetes Kidney failure Father AAA (abdominal aortic aneurysm, ruptured) Family/Other Mental health disorder Substance use disorder Social History Social History Household Members: Family Housing: House Are you a primary child care attendant to a significant other at home: No Do you presently have visiting nurse or 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 Patient Tobacco Use Status: Never used Tobacco Smoked in Last 30 Days: No e-Cigarette/Vaping Use: Never Used Second Hand Smoke Exposure: No Use of substances other than those prescribed or required for medical reasons: No Advance Directives: Yes Advance Directives on File: Yes Advance Directives Date on File: 06/25/24 service: No Current occupational status: retired and disabled Cognitive needs: Yes (walker) Hearing needs: No Vision needs: Yes (glasses) Physical Exam ED Vital Signs: Vital Signs - 24 hr 09/03/24 18:57 09/03/24 19:09 Temperature 98.3 F Pulse Rate 60 Respiratory Rate 18 Blood Pressure 143/64 H Pulse Oximetry 96 91 L Oxygen Delivery Method Room Air Room Air BMI result Body Mass Index 38.0 Const General: cooperative, no acute distress, alert and awake Nutritional Appearance: well nourished Orientation/consciousness: patient oriented x3 Limitations: no limitations HENMT Head: Yes normal to inspection and Yes atraumatic Ears: hearing grossly normal bilaterally and external ears normal General nose exam: Normal external nose present, no nasal discharge noted and no epistaxis Face and sinus: Yes normal facial exam, No abrasion and No laceration Mouth: Normal oral and palatal mucosa present, no drooling and no muffled voice Eyes General: appearance normal, both eyes and all related structures Periorbital: periorbital findings normal Eyelids: Yes eyelids normal Conjunctivae: conjunctivae normal Pupils: Equal, round and reactive pupils present EOM: EOMs intact bilaterally Neck Neck: Yes normal visual inspection, Yes full ROM and Yes no lymphadenopathy Chest Chest palpation & inspection: normal inspection of the chest Resp Effort & Inspection: normal respiratory effort and able to speak in complete sentences GI Inspection: Yes normal to inspection Neuro General: patient oriented x3, moves all extremities and CN's II-XI intact bilaterally Cranial nerves: Yes Equal, round and reactive pupils present Cognition (Neuro): normal cognition Extrem Other: minimal redness present to the dorsal aspect of the left foot pain with palpation of the dorsal left foot General: Yes full ROM and Yes capillary refill normal Psych Appearance: grossly normal Mental Status: mental status grossly normal Affect: normal affect Attitude: cooperative Thought process: Normal thought process present Thought content: Normal thought content present Insight: Good insight present (Psych) Medications Administered Discontinued Medications Generic Name Dose Route Start Last Admin Trade Name Bryce PRN Reason Stop Dose Admin Lorazepam 0.5 mg 09/03/24 20:26 09/03/24 20:44 Lorazepam 0.5 Mg Tablet PO 09/03/24 20:27 0.5 mg ONCE ONE Administration Oxycodone HCl 5 mg 09/03/24 20:26 09/03/24 20:44 Oxycodone Hcl Immed Release 5 Mg Tablet PO 09/03/24 20:27 5 mg ONCE ONE Administration Procedures Orthopedic Splinting/Casting Injury #1: Side: left Lower Extremity Injury Location: foot Lower Extremity Immobilizer: boot orthosis Medical Decision Making Medical Decision Making MDM Narrative: Patient is a 68 year old assigned female at with a history of HTN, CKD, anxiety, SVT, MS - progressing + now in wheelchair, CPS, and depression presenting to the emergency department today with left foot pain after a misstep off a curb. Patient's physical exam was as noted in the physical exam portion of this note. Patient's left ankle x-ray showed an old tibial fracture. Patient's left foot x-ray showed an acute left 2nd digit proximal phalanx fracture at the metatarsophalangeal joint. I spoke to the orthopedic team who agreed with putting the patient in a short boot and allowing weight bearing on that side as tolerated. I explained my physical exam findings as well as all test results to the patient. I answered all questions asked by the patient. Patient's left foot was placed in a short walking boot, without incident. Patient's PMS was intact prior to and after boot placement. Patient expressed concern about being safe at home given the boot / recent incident. Patient will be evaluated by physical therapy and case management. Differential Diagnosis Differential Diagnoses: The differential diagnosis associated with the presentation includes Foot fracture Unsteadiness Admission/Observation Consideration of admission/observation: Escalation of care including admission/observation considered Patient would have been admitted to the hospital had her work up had any findings where hospital admission was appropriate and her clinical presentation warranted hospital admission. Consult Healthcare Provider Management of the patient was discussed with: Archery Instructor (spoke to the orthopedic team as noted in the MDM Rationale portion of this note.) Independent Interpretation I performed an independent interpretation of an: Plain X-Ray Interpretation: My interpretation is in agreement with the radiologist's impression of these imaging studies. CLINICAL HISTORY: pain, injury 3 view left foot Comparison: CR - XR ANKLE LT MIN 3V - 09/03/24 18:51 EDT Findings: Acute appearing fracture without displacement involving the proximal phalanx of the 2nd digit at the metatarsophalangeal joint. Degenerative changes of the 1st metatarsophalangeal joint. No ankle effusion. No radiopaque foreign body. IMPRESSION: 1. Acute fracture involving the proximal phalanx of the 2nd digit at the metatarsophalangeal joint. 2. Advanced degenerative change at the 1st metatarsophalangeal joint This document has been electronically signed by: Radha Gonzalez MD on 09/03/2024 19:33:59 Dictated By: Radha Gonzalez MD Signed By: Electronically signed by Radha Gonzalez MD 09/03/241933 CLINICAL HISTORY: pain, injury 2 view left ankle Comparison: None Findings: Bones intact. Old tibial fracture. No dislocations. Degenerative changes of the ankle. Mild diffuse soft tissue swelling. No radiopaque foreign body. IMPRESSION: 1. Old tibial fracture with degenerative changes of the ankle. No acute fracture identified This document has been electronically signed by: Radha Gonzalez MD on 09/03/2024 19:31:21 Dictated By: Radha Gonzalez MD Signed By: Electronically signed by Radha Gonzalez MD 09/03/241931 Radiology Impression Discussion of test interpretation with radiology: I have reviewed the radiologist's reading. Independent Historian Clinical information obtained from an independent historian. History obtained from or confirmed by: EMS (EMS provided additional history and confirmed the history provided by the patient. ) Discharge Plan Discharge Clinical Impression: Foot fracture Patient Disposition: Still a Patient Prescriptions: No Action tizanidine 4 mg tablet 4 mg PO BID Qty: 60 0RF meclizine 25 mg tablet 25 mg PO Q6H PRN (Reason: vertigo) Qty: 30 0RF oxycodone 5 mg tablet 5 mg PO BID Qty: 60 0RF Rx Instructions: Partial Fill upon patient request. zolpidem 10 mg tablet 10 mg PO BEDTIME PRN (Reason: Insomnia) oxcarbazepine 150 mg tablet 150 mg PO BID Rx Instructions: TAKE WITH 300 MG FOR TOTAL DOSE OF 450 MG BID prazosin 1 mg capsule 1 mg PO BEDTIME omeprazole 20 mg capsule,delayed release(DR/EC) 20 mg PO BID@0630,1630 metoprolol tartrate 25 mg tablet 37.5 mg PO BID lorazepam 0.5 mg tablet 0.5 mg PO BID PRN (Reason: anxiety) nystatin 100,000 unit/mL Suspension 5 ml PO QID Qty: 200 0RF loperamide 2 mg Capsule 2 mg PO Q4H PRN (Reason: diarrhea) Qty: 30 0RF folic acid 1 mg tablet 1 mg PO DAILY Qty: 90 0RF oxcarbazepine 300 mg tablet 300 mg PO BID Qty: 180 0RF Rx Instructions: TAKE 1 TABLET BY MOUTH TWICE A DAY WITH 150 MG TABLET FOR TOTAL DOSE = 450 MG. sertraline 100 mg tablet 200 mg PO DAILY quetiapine 100 mg tablet 100 mg PO BEDTIME ergocalciferol (vitamin D2) 1,250 mcg (50,000 unit) capsule 1,250 mcg PO BROWN@0900 solifenacin [Vesicare] 10 mg tablet 10 mg PO DAILY Print Language: Guatemalan
[2024-09-03 18:57] VITALS: BP 143/64; PULSE 60; RESP 18; TEMP 36.8; O2SAT 96; BMI 38.0
[2024-09-03 19:09] VITALS: O2SAT 91
--- NOTE | 2024-09-03 19:35 | PC.NURSE ---
left foot elevated and ice applied.
[2024-09-03] MEDS: oxyCODONE HCl Immed Release 5 MG TABLET PO (20:44)
[2024-09-03] MEDS: LORazepam 0.5 MG TABLET PO ×2 (20:44→23:54)
[2024-09-03 21:02] VITALS: BP 163/49; PULSE 62; RESP 18; TEMP 37.1; O2SAT 96
[2024-09-03] MEDS: Zolpidem Tartrate 5 MG TABLET PO (21:42)
[2024-09-03] MEDS: Ketorolac Tromethamine 15 MG/ML VIAL IM (21:42)
[2024-09-03] MEDS: Meclizine HCl 25 MG TABLET PO (21:42)
--- NOTE | 2024-09-03 23:02 | MHC.CM.ED ---
CM met with patient at the request of provider. Pt is A&Ox4. She is a retired [employer] [place].She was diagnosed with M.S. about 15 years ago. She lives alone in a 2 family home. Her great nephews live upstairs and help her with what she needs. She is active with [facility] and has MOW. HCP is on file. She did not fall, but when was transferring into her W/C, she dragged her ankle and rolled it . Medical work up is negative. Pt is willing to have PT assessment. She states she has been having balance issues, however, she would like home PT if PT is recommended. She does not want STR. No referrals placed at this time per patient request. She is active with [facility] and did have home PT in the past. Referral placed with [facility]. CM will follow for discharge planning.
[2024-09-03 23:08] VITALS: BP 187/73; PULSE 63; RESP 16; O2SAT 94
[2024-09-03 23:54] VITALS: BP 187/73; PULSE 63
[2024-09-03] MEDS: Metoprolol Tartrate 12.5 MG HALFTAB PO (23:54)
[2024-09-03] MEDS: Metoprolol Tartrate 25 MG TABLET PO (23:54)
[2024-09-04 03:28] VITALS: BP 140/70; PULSE 61; RESP 16; TEMP 36.6; O2SAT 97
[2024-09-04 06:09] VITALS: BP 166/78; PULSE 59; RESP 16; TEMP 36.7; O2SAT 97
[2024-09-04] MEDS: Meclizine HCl 25 MG TABLET PO ×2 (06:14→12:33)
[2024-09-04] MEDS: Omeprazole 20 MG CAPSULE.DR PO ×2 (06:14→16:11)
--- NOTE | 2024-09-04 07:36 | PC.NURSE ---
PT at bedside for eval.
[2024-09-04 08:31] VITALS: BP 166/78; PULSE 59; O2SAT 97
[2024-09-04] MEDS: Metoprolol Tartrate 12.5 MG HALFTAB 37.5 MG PO ×2 (09:00→21:38)
[2024-09-04] MEDS: Nystatin Oral Susp 500,000 UNIT/5 ML ORAL.SUSP 500000 UNIT PO ×4 (09:00→21:37)
[2024-09-04] MEDS: OXcarbazepine 150 MG TABLET PO ×2 (09:00→21:36)
[2024-09-04] MEDS: OXcarbazepine 300 MG TABLET PO ×2 (09:00→21:36)
[2024-09-04] MEDS: Folic Acid 1 MG TABLET PO (09:00)
[2024-09-04] MEDS: oxyCODONE HCl Immed Release 5 MG TABLET PO ×2 (09:06→21:36)
[2024-09-04] MEDS: LORazepam 0.5 MG TABLET PO ×2 (09:11→21:36)
[2024-09-04] MEDS: Tolterodine Tartrate LA 4 MG CAP.ER.24H PO (09:34)
[2024-09-04] MEDS: Sertraline HCL 100 MG TABLET 200 MG PO (09:34)
--- NOTE | 2024-09-04 10:13 | MHC.CM.PN ---
P.T. RECOMMENDING ACUTE REHAB, REFERRAL PLACED TO LOCAL [facility], CM WILL FOLLOW UP W/PT.
--- NOTE | 2024-09-04 12:52 | PHA.MEDREC ---
Pharmacy Consult ? Medication Reconciliation Pharmacy has completed the medication reconciliation. Reviewed med rec completed by nursing. Spoke with pt, she states she is not on baclofen. She confirmed she is still on baclofen.
--- NOTE | 2024-09-04 14:06 | PC.NURSE ---
Paperwork completed for walking boot issued to Pt. Pt provided with pink copy; all other forms placed to be filed.
[2024-09-04 16:19] VITALS: BP 185/80; PULSE 69; RESP 19; TEMP 37.2; O2SAT 97
[2024-09-04] MEDS: Ketorolac Tromethamine 15 MG/ML VIAL IM (20:19)
--- NOTE | 2024-09-04 20:21 | PC.NURSE ---
pt reporting overall body aches, pt not able to have PRN medications, Claudia QUIROZ aware, pt medicated per mar at this time.
[2024-09-04 20:34] VITALS: BP 176/88; PULSE 72; RESP 18; TEMP 37.1; O2SAT 97
[2024-09-04 21:37] VITALS: BP 148/73
[2024-09-04] MEDS: Prazosin HCL 1 MG CAPSULE PO (21:37)
[2024-09-04] MEDS: QUEtiapine Fumarate 100 MG TABLET PO (21:38)
--- NOTE | 2024-09-04 22:48 | PC.NURSE ---
pt medicated per mar, tolerated whole well with water. pt offers no complaints at this time.
--- NOTE | 2024-09-04 23:26 | MHC.EDTECH ---
This tech took over care of pt at 2300,rounds completed,pt is sleeping resp rate WNL,pt appears comfortable,call olson in reach
[2024-09-05 02:00] VITALS: RESP 16
[2024-09-05 05:42] VITALS: BP 149/73; PULSE 62; RESP 18; TEMP 36.5; O2SAT 95
[2024-09-05] MEDS: Omeprazole 20 MG CAPSULE.DR PO (05:55)
--- NOTE | 2024-09-05 06:15 | PC.NURSE ---
pt medicated per AUG, allergy warning given and was overriden as pt has been taking this medication at home regularly. MD mendenhall
--- NOTE | 2024-09-05 06:33 | PC.NURSE ---
pt resting comfortably throughout the night, no apparent distress noted. call olson w/in reach
[2024-09-05] MEDS: OXcarbazepine 300 MG TABLET PO (08:42)
[2024-09-05] MEDS: Nystatin Oral Susp 500,000 UNIT/5 ML ORAL.SUSP 500000 UNIT PO (08:42)
[2024-09-05] MEDS: Folic Acid 1 MG TABLET PO (08:42)
[2024-09-05] MEDS: Sertraline HCL 100 MG TABLET 200 MG PO (08:42)
[2024-09-05] MEDS: OXcarbazepine 150 MG TABLET PO (08:43)
[2024-09-05] MEDS: Metoprolol Tartrate 12.5 MG HALFTAB 37.5 MG PO (08:43)
[2024-09-05] MEDS: oxyCODONE HCl Immed Release 5 MG TABLET PO (08:43)
[2024-09-05] MEDS: LORazepam 0.5 MG TABLET PO (08:49)
[2024-09-05] MEDS: Tolterodine Tartrate LA 4 MG CAP.ER.24H PO (08:56)
[2024-09-05] MEDS: Ergocalciferol (Vitamin D2) 1,250 MCG CAPSULE 1250 MCG PO (08:56)
--- NOTE | 2024-09-05 09:48 | MHC.CM.PN ---
Addendum entered by Idalia Hill RN 09/05/24 10:54: CM CONTACTED PT'S NEPHEW/PRIMARY CONTACT [facility] AT 10:51AM [phone] TO ARRANGE DC, [facility] WOULD LIKE PT TRANSPORT VIA AMBULANCE AT 12:30PM AND REPORTS HE IS HEADED BACK FROM [place] AND WILL BE HOME BY 12PM AND WILL HELP PT GET SETTLED. Original Note: PT DECLINED BY ALL 3 ACUTE REHABS, SNF REF PLACED YESTERDAY 09/04, CM RECEIVED OFFERS THIS AM FROM [facility]OPE[facility] AND [facility]ARNSWOR[facility], CM MET W/PT TO DISCUSS OPTIONS AND PT DECLINES STR AND WOULD LIKE TO GO HOME W/RESUMP OF [facility] FOR SN AND NEW HOME PT, PT REPORTS SHE WILL CONTACT HER NEPHEW [facility] FOR TRANSPORT HOME, PT WILL ASK NURSE TO CONTACT CM IF SHE NEEDS BLS TRANSPORT.
[2024-09-05 13:04] VITALS: BP 149/73; PULSE 62; RESP 18; TEMP 36.5; O2SAT 95
== END 2024-09-05 13:33 | disposition home or self-care (01) ==
PROVIDERS: Emergency Provider Emergency Medicine; PCP Internal Medicine
DX: S92.902A Unspecified fracture of left foot, initial encounter for closed fracture (principal); M79.672 Pain in left foot; R26.2 Difficulty in walking, not elsewhere classified; W01.0XXA Fall on same level from slipping, tripping and stumbling without subsequent striking against object, initial encounter; Y93.01 Activity, walking, marching and hiking; Y92.480 Sidewalk as the place of occurrence of the external cause; Y99.8 Other external cause status; Z79.899 Other long term (current) drug therapy
CPT/HCPCS: 29505; 29515; 73610; 73630; 96372; 97162; 99285; J1885

== ENCOUNTER → 2024-09-03 18:35 | Outpatient (BNV) | payer MEDICARE, MEDICAID, SELFPAY | PROVIDERS: Emergency Provider Emergency Medicine; PCP Internal Medicine; Visit Provider Radiology Diagnostic Radiology | DX: M25.572 Pain in left ankle and joints of left foot (principal) | CPT/HCPCS: 73610; 73630 ==

== ENCOUNTER 2024-11-02 10:41 | Outpatient (AMB) | payer MEDICARE, MEDICAID, SELFPAY ==
--- NOTE | 2024-11-02 10:48 | A.OFFPC_ITS ---
Vital Signs 11/02/24 10:49 Height 5 ft 5 in BP 150/86 H Blood Pressure Location Lt brachial Position Sitting Respiration 16 Pulse 69 Pulse Source Pulse Oximeter Temp 99.2 F Temp Source Oral Pulse Oximetry (%) 96 Oxygen Delivery Method Room Air Intake Visit Reasons: [facility] 09/05 rolled ankle Intake Note: Patient is here for hospital discharge follow up. Patient was discharged from [facility] in [place], [place] on 09/05/2024. Systems Design Engineer Required: No Accompanied by: Self / Same As Patient Allergies prochlorperazine [Compazine] Allergy (Severe, Verified 11/02/24 11:25) Dystonic Reaction cobalt [COBALT] Allergy (Intermediate, Verified 11/02/24 11:03) RASH hydrocodone [Vicodin] Allergy (Intermediate, Verified 11/02/24 11:03) Nausea and Vomiting nickel [NICKEL] Allergy (Intermediate, Verified 11/02/24 11:03) RASH ondansetron [Zofran] Allergy (Intermediate, Verified 11/02/24 11:03) Hives morphine Adverse Reaction (Intermediate, Verified 11/02/24 11:03) Nausea and Vomiting lactose Adverse Reaction (Verified 11/02/24 11:03) Gastrointestinal Upset Medication List - Last Reconciled 11/06/24 by RICHARD Negron baclofen 10 mg PO TID ergocalciferol (vitamin D2) 1,250 mcg PO BROWN@0900 folic acid 1 mg PO DAILY lorazepam 0.5 mg PO BID PRN meclizine 25 mg PO Q6H PRN metoprolol tartrate 37.5 mg PO BID nystatin 5 mL PO QID omeprazole 20 mg PO BID@0630,1630 oxcarbazepine 300 mg PO BID oxcarbazepine 150 mg PO BID oxycodone 5 mg PO BID prazosin 1 mg PO BEDTIME quetiapine 100 mg PO BEDTIME sertraline 200 mg PO DAILY solifenacin (Vesicare) 10 mg PO DAILY zolpidem 10 mg PO BEDTIME PRN Tobacco use date assessed: 11/02/24 Fall risk assessment: 1 Fall in past year Last assessed Fall Risk: 11/02/24 Dental Screening Dental Screen Date: 11/02/24 Did you have a dental visit in the last 12 months?: No Did you have a dental problem in the last 6 months where you did not have access to dental care?: No Was dental information given to patient?: No HPI [facility] 09/05 rolled ankle HPI Details The patient is a 69-year-old female past medical history CKD, anxiety, chronic idiopathic pain syndrome, bilateral knee pain, dizziness, and MS Patient is presenting for follow up for post [facility] ER visit for rolling her ankle Per [facility] ER note, the patient stepped off a curve roll her ankle X-ray completed in showed an acute left 2nd digit proximal phalanx fracture at the metatarsophalangeal joint Orthopedic was consulted and the patient was placed in a short boot and allowed weight-bearing as tolerated Patient is presenting today, sharp boot is in place the left leg The patient is requesting a podiatry referral Reports that she was receiving PT at home 2 times a week, which recently com pleted [facility] Medical History Hypertension Urinary incontinence Anxiety Anxiety COVID-19 Osteoarthritis of right knee Essential hypertension SVT (supraventricular tachycardia) Depression History of kidney problems Paroxysmal SVT (supraventricular tachycardia) History of confusion Urgency of micturition Memory difficulties Arthritis History of dysphagia Multiple sclerosis GERD (gastroesophageal reflux disease) Anxiety Pain syndrome, chronic Disc degeneration, lumbar 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, bilateral Surgical History Hx of hysterectomy History of surgery on left wrist Deficient knowledge of leg surgery History of rotator cuff surgery History of left knee surgery History of myomectomy History of appendectomy Family History Mother Diabetes Kidney failure Father AAA (abdominal aortic aneurysm, ruptured) Family/Other Mental health disorder Substance use disorder Social History Household Members: Family Housing: House Are you a primary ostomy care nurse to a significant other at home: No Do you presently have visiting nurse or other home services: No ([employer]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 Patient Tobacco Use Status: Never used Tobacco e-Cigarette/Vaping Use: Never Used Second Hand Smoke Exposure: No Advance Directives Date on File: 06/25/24 service: No Current occupational status: retired and disabled Cognitive needs: Yes (walker) Hearing needs: No Vision needs: Yes (glasses) Questionnaire PHQ-9 Over the last 2 weeks, how often have you been bothered by any of the following problems? 1. Little interest or pleasure in doing things: several days 2. Feeling down, depressed, or hopeless: several days 3. Trouble falling or staying asleep, or sleeping too much: not at all 4. Feeling tired or having little energy: not at all 5. Poor appetite or overeating: not at all 6. Feeling bad about yourself - or that you are a failure or have let yourself or your family down: not at all 7. Trouble concentrating on things, such as reading the newspaper or watching television: not at all 8. Moving or speaking so slowly that other people could have noticed. Or the opposite - being so fidgety or restless that you have been moving around a lot more than usual: not at all 9. Thoughts that you would be better off or of hurting yourself in some way: not at all Total score: 2 Depression Screening Interpretation: Negative Depression Screening Done: Yes 51932 - PHQ-9 Billing: Yes Source: Developed by Drs. Dewey Angel, Cherie Mei, Dilan Giordano and colleagues, with an educational domingo from [email or web address]. Thrive Questionnaire Date Thrive assessed: 11/02/24 I am a: Patient What is your living situation today?: I have a steady place to live Within the past 12 months, did the food you bought not last and you didn't have the money to get more?: I choose not to answer this question Within the past 12 months, did you worry whether your food would run out before you got money to buy more?: I choose not to answer this question Do you have trouble paying for medicines?: I choose not to answer this question Do you have trouble getting transportation to medical appointments?: I choose not to answer this question Do you have trouble paying your heating and electricity bill?: I choose not to answer this question Do you have trouble taking care of your child, family member or friend?: I choose not to answer this question Do you have trouble with day-to-day activities such as bathing, preparing meals, shopping, managing finances, etc.?: I choose not to answer this question Are you currently unemployed and looking for a job?: I choose not to answer this question Are you interested in more education?: I choose not to answer this question Please select the resources that you would like help with: None Currently or been in a relationship where the following occur: I choose not to answer THRIVE Score: 0 AUDIT C Alcohol Use Questionnaire (AUDIT-C) 1. How often do you have a drink containing alcohol?: Never Total Score: 0 Score Reviewed/Action Taken: No ARNAUD-7 AMB Questionnaire ARNAUD-7 Date ARNAUD - 7 assessed: 11/02/24 Feeling nervous, anxious, or on edge: 0 = Not at all Not being able to stop or control worryin = Not at all Worrying too much about different things: 0 = Not at all Trouble relaxin = Not at all Being so restless that it is hard to sit still: 0 = Not at all Becoming easily annoyed or irritable: 0 = Not at all Feeling afraid as if something awful might happen: 0 = Not at all Total ARNAUD-7 score (0-4 normal; 5-9 mild; 10-14 moderate; 15-21 severe): 0 Source: Developed by Drs. Dewey Angel, Cherie Mei, Dilan Giordano and colleagues, with an educational domingo from [email or web address]. ARNAUD-7 Assessment Billing ARNAUD-7 Assessment Tool: ARNAUD-7 Assessment 59796 Review of Systems Const Reports excessive sweating, Denies headache(s) and Reports weakness (lower extremities progressively, DX with MS) Eyes Denies loss of vision ENT Denies vertigo, Reports dizziness, Denies headache(s) and Denies sore throat Card Denies chest pain, Denies leg edema and Denies lightheadedness Resp Denies cough, Denies hemoptysis and Denies wheezing Denies urinary frequency, Denies dysuria and Denies urinary urgency Musc Denies arthralgias, Denies joint swelling, Denies numbness, Denies tingling and Reports other (foot pain (short boot in place)) Neuro Denies Abnormal speech present, Denies vertigo, Reports dizziness, Denies headache(s), Denies loss of vision, Denies numbness, Denies tingling and Reports weakness (lower extremities progressively, DX with MS) Endo Reports excessive sweating Justin/Lymph Denies easy bleeding and Denies easy bruising Aller/Immun Denies wheezing Physical exam (Primary Care) Vital Signs: Last Vital Signs Temp 99.2 F 11/02/24 10:49 Pulse 69 11/02/24 10:49 Resp 16 11/02/24 10:49 BP 150/86 H 11/02/24 10:49 Pulse Ox 96 11/02/24 10:49 Oxygen Delivery Method Room Air 11/02/24 10:49 Tobacco/Smoking Status: Tobacco use Status Tobacco use date assessed 11/02/24 11/02/24 11:10 Patient Tobacco Use Status Never used Tobacco 11/02/24 11:10 e-Cigarette/Vaping Use Never Used 11/02/24 11:10 PHQ-9: PHQ-9 Score PHQ-9: Total score 2 11/06/24 03:30 Depression Screening Interpretation: Negative Thrive Assessment: Date of Thrive Assessment Date Thrive assessed 11/02/24 11/02/24 11:10 Currently or been in a relationship where the following occur: I choose not to answer Const General: healthy appearing, no acute distress, alert and awake Nutritional Appearance: well nourished Orientation/consciousness: oriented to person, oriented to place and oriented to time HENMT Ears: TM's normal bilaterally General nose exam: Normal nasal mucous membranes and turbinates present Eyes Conjunctivae: conjunctivae normal Sclerae: sclerae normal Pupils: Equal, round and reactive pupils present Neck Neck: Yes no lymphadenopathy and Yes no JVD Thyroid: Thyroid normal Carotids: no bruits Resp Effort & Inspection: normal respiratory effort and not tachypneic Auscultation: no crackles, no rales, no rhonchi and no wheezes Cardio Rate: regular rate Rhythm: regular rhythm Heart sounds: no murmurs and normal S1 and S2 Neuro General: oriented to person, oriented to place, oriented to time and CN's II-XI intact bilaterally Cranial nerves: Yes Equal, round and reactive pupils present Speech: No Abnormal speech present Gait exam (Neuro): Normal gait present and Assisted gait required (wheelchair, uses walker for short distance with assistance) Motor exam (neuro): no tremor noted Sensory Exam: Abnormal lower extremity sensory exam (weakness) Extrem Right upper extremity: full ROM Left upper extremity: full ROM Right lower extremity: full ROM; no edema Left lower extremity: full ROM and foot (short boot intact) Details: normal capillary refill; no edema Psych Mental Status: mental status grossly normal Speech and movement: Normal speech and movement present Affect: normal affect Attitude: cooperative Thought process: Normal thought process present Coding Level of Care Code Est Pt Level 3 (76702) Diagnoses Closed fracture of left foot with routine healing, subsequent encounter S92.902D Encounter type: subsequent encounter Fracture type: closed Fracture healing: with routine healing Hyperkalemia E87.5 Vertigo R42 Multiple sclerosis G35 Additional Codes ARNAUD-7 Assessment Billing - ARNAUD-7 Assessment Tool: ARNAUD-7 Assessment 24419 ([id number]) PHQ-9 - 63528 - PHQ-9 Billing: Yes ([id number]) Time Spent (min) 37 Assessment & Plan Assessment & Plan (1) Foot fracture, left: Code(s): S92.902A - Unspecified fracture of left foot, initial encounter for closed fracture Category: Medical Qualifiers: Encounter type: subsequent encounter Fracture type: closed Fracture healing: with routine healing Qualified Code(s): S92.902D - Unspecified fracture of left foot, subsequent encounter for fracture with routine healing (2) Hyperkalemia: Code(s): E87.5 - Hyperkalemia Category: Medical (3) Vertigo: Code(s): R42 - Dizziness and giddiness Category: Medical (4) Multiple sclerosis: Comment: Sees Dr Buitrago @ [facility] @ [facility] Code(s): G35 - Multiple sclerosis Category: Medical Plan The patient's left foot fracture is being treat with a short boot and activity as tolerated, which was orthopedic recommendation when the patient was seen in [facility] ED. However, the patient is requesting to be seen by orthopedic, specifically Dr. Chavez at [facility], to assess healing and persistent pain. Referral placed. For positional vertigo, meclizine is recommended for symptom relief alongside hydration enhancements. The implications of her current medication for dizziness underscore careful consumption and follow-through with chiropractic or vestibular therapeutic options when feasible. Furthermore, follow-up on all MS management with her neurologist and Vitamin D supplementation continues to be advisable for health maintenance. Additionally, assessing her potassium levels based on historical elevation remains a priority. Patient was informed and verbally consented to the use of an ambient scribe for clinic note documentation during this visit. Orders: Orders Basic Metabolic Panel 11/02/24 E87.5 - Hyperkalemia Referrals Podiatry Referral S92.902A - Unspecified fracture of left foot, initial encounter for closed fracture
[2024-11-02 10:49] VITALS: BP 150/86; PULSE 69; RESP 16; TEMP 37.3; O2SAT 96
--- OUTSIDE RECORDS SUMMARY | 2024-11-02 11:53 | XMS_ITS | Clinical Summary ---
Author Organization [facility] Address [address] [place] [address] Care Team Providers Care Tube Backer Name Role Phone Drew Marc MD Primary [...] 3 10/27/2023 Active ergocalciferol (VITAMIN D2) capsule 39891 units TAKE 1 CAPSULE BY MOUTH ONE [...] age to complete this topic Care Teams Tube Backer Relationship Specialty Start Date End Date Drew Marc MD [address] [place] [address] Dr Stokes [address] [place] [id number] PCP - General Internal Medicine 08/10/20
--- OUTSIDE RECORDS SUMMARY | 2024-11-02 11:53 | XMS_ITS | Clinical Summary ---
Author Organization [facility] Address [address] [place] [address] Phone Care Team Providers Care Patient Financial Advocate Name Role Phone Drew Marc MD Primary Care Provider + Allergies Active Allergy Reactions Criticality Noted Date Comments [place] Rash Low 05/29/2022 Hydrocodone Other (see comments) [...] 09/15/2020 Active ergocalciferol (VITAMIN D2) 1.25 MG (62821 UT) capsule Take 1 capsule by mouth [...] Comments Breast Cancer Screening 1955 Pneumococcal Vaccine: 50+ Ye ars (1 of 2 - PCV) 1972 Colorectal Cancer Screening: Annual FOBT 2002 Colorectal Cancer Screening: Colonoscopy 2002 Colorectal Cancer Screening: Sigmoidoscopy 2002 Influenza Vaccine (Season Ended) 2025 Hepatitis B Vaccine Aged Out No longe r eligible based on patient's age to complete this topic Insurance Medicaid [place] UHC Medicare * Guarantor: Sarah Dash Account Type Relation to Patient Date of Phone Billing Address Personal/Family Self 1955 [address] [place] [address] [place] Medicare Care Teams Patient Financial Advocate Relationship Specialty Start Date End Date Drew Marc MD [facility] [address] [place] [address] [address] PCP - General 09/20/20
--- OUTSIDE RECORDS SUMMARY | 2024-11-02 11:53 | XMS_ITS | Clinical Summary ---
Author Organization [address] [place] [address] Address [address] [place] [address] Phone Care Team Providers Care Motor Tune Up Specialist Name Role Phone Drew Marc MD Primary Care Provider [phone]- [phone] Allergies Active Allergy Reactions Criticality Noted Date Comments [place] Rash Low 05/29/2022 Hydrocodone Other 09/20/2020 Hydrocodone-Acetaminophen Nausea And Vomiting 0 2019 Morphine Other 09/20/2020 Nickel Other 09/20/2020 Ondansetron Hives 2019 Prochlorperazine Other 2019 Dystonic Tramadol 02/11/2020 Medications ergocalciferol (VITAMIN D-2) 1,250 mcg (50,000 unit) capsule Take 1 capsule (50,000 Units total) by mouth 1 (one) time per week. 02/27/20 22 Active LORazepam (ATIVAN) 0.5 mg tablet Take 1 tablet (0.5 mg total) by mouth 2 (two) times a day. Active metoprolol tartrate (LOPRESSOR) 25 mg tablet Take 1 tablet (25 mg total) by mouth 2 (two) times a day. Active omeprazole (PriLOSEC) [address] capsule Take 1 capsule (20 mg total) by mouth 2 (two) times a day. 02/02/20 21 Active OXcarbazepine (TRILEPTAL) 150 mg tablet Take 1 tablet (150 mg total) by mouth 2 (two) times a day. 06/04/20 22 Active oxyCODONE (ROXICODONE) 5 mg immediate release tablet Take 1 tablet (5 mg total) by mouth 2 (two) times a day. 10/06/19 20 Active QUEtiapine (SEROquel) 25 mg tablet Take 4 tablets (100 mg total) by mouth at bedtime. 01/22/20 20 Active sertraline (ZOLOFT) 100 mg tablet TAKE 1 TABLET BY MOUTH 2 TIMES A DAY FOR 30 DAYS 04/10/20 22 Active prazosin (MINIPRESS) 1 mg capsule Take 1 capsule (1 mg total) by mouth. at bedtime 06/25/19 25 Active zolpidem (AMBIEN) 5 mg tablet TAKE 1 TABLET ORALLY BEDTIME NEEDED FOR INSOMNIA Active folic acid (FOLVITE) 1 mg tablet Take by mouth 1 (one) time each day. Active solifenacin (VESICARE) 10 mg tablet Take 1 tablet (10 mg total) by mouth 1 (one) time each day. Active baclofen (LIORESAL) 10 mg tablet Take 1 tablet (10 mg total) by mouth 1 (one) time each day for 7 days, THEN 1 tablet (10 mg total) 2 (two) times a day for 7 days, THEN 2 tablets (20 mg total) 2 (two) times a day. 261 each 10/20/19 25 025 Active dilTIAZem (TIAZAC) 120 mg 24 hr capsule 06/10/20 21 025 Discontinued( erapy completed) ibuprofen (ADVIL,MOTRIN) 200 mg tablet Take 1 tablet (200 mg total) by mouth every 6 hours as needed. 025 Discontinued( erapy completed) baclofen (LIORESAL) 10 mg tablet TAKE 1 TABLET BY MOUTH IN MORNING AND TWO TABLETS AT NIGHT 270 tablet 1 05/28/20 24 025 Discontinued dilTIAZem CD (CARDIZEM CD) 120 mg 24 hr capsule Take 1 capsule (120 mg total) by mouth 1 (one) time each day. 11/22/19 23 025 Discontinued( erapy completed) multivitamin tablet Take 1 tablet by mouth 1 (one) time each day. 025 Discontinued( erapy completed) predniSONE 10 mg tablets,dose pack Take 4 tablets (40 mg total) by mouth. 025 Discontinued( erapy completed) thiamine 100 mg tablet Take 10 mg by mouth 1 (one) time each day. 025 Discontinued( erapy completed) tiZANidine (ZANAFLEX) 4 mg tablet Take 1 tablet (4 mg total) by mouth 2 (two) times a day. 10/18/19 25 025 Discontinued(Th erapy completed) Active Problems Problem Noted Date Diagnosed Date Multiple sclerosis ([facility] V24, [facility] V28) Back pain 10/26/2019 Headache 10/26/2019 Depression 10/26/2019 Encounters Date Type Department Care Team Description 10/19/2024 3:30 PM EDT Office Visit [facility] [address] [place] [address] Danelle Grant MD Multiple sclerosis ([facility] V24, [facility] V28) (Primary Dx); Depression, unspecified depression type; Spasticity; Memory change from Last 3 Months Surgical History Surgery Date Site/Laterality Comments KNEE SURGERY PROCEDURE:KNEE SURGERY SHOULDER SURGERY PROCEDURE:SHOULDER SURGERY HYSTERECTOMY PROCEDURE:HYSTERECTOMY APPENDECTOMY PROCEDURE:APPENDECTOMY MYOMECTOMY PROCEDURE:MYOMECTOMY Medical History Medical History Date Comments Fibromyalgia 12/10/2016 DX:Fibromyalgia Headache, migraine DX:Headache, migraine Lumbar radiculopathy 05/06/2012 DX:Lumbar r adiculopathy Lumbar spinal stenosis 07/06/2012 DX:Lumbar spinal stenosis Multiple sclerosis ([facility] V24, [facility] V28) DX:Multiple sclerosis ([facility]) Osteoarthritis DX:Osteoarthriti s Family History Medical History [...] Sign Reading Time Taken Comments Blood Pressure 96/64 10/19/2024 3:51 PM EDT Pulse 77 10/19/2024 3:51 PM EDT Temperature 36.7 ??C (98.1 ??F) 07/07/2024 3:53 PM ES T Respiratory Rate - - Oxygen Saturation 99% 10/19/2024 3:51 PM EDT Inhaled Oxygen Concentration - - Weight 88.5 kg (195 lb) 07/07/2024 3:53 PM EST Height 165.1 cm (5' 5 ) 07/07/2024 3:53 PM EST Body Mass Index 32.45 07/07/2024 3:53 PM EST Plan of Treatment Upcoming Encounters Date Type Department Care Team (Late st Contact Info) Description 12/23/2024 4:00 PM EDT Office Visit [facility] [address] [place] [address] Danelle Grant MD [address] [place] [address] Health Maintenance Due Date Last Done Comments Breast Cancer Screening 1955 Zoster Vaccines (1 of 2) 09/17/2003 Pneumococcal Vaccine: 50+ Years (2 of 2 - PPSV23) 09/06/2020 09/07/2019 Cholesterol Screening (Lipid Panel) 05/30/2022 Colorectal Cancer Screening: Colonoscopy 05/30/2022 Depression Screening 05/30/2022 Falls Risk Assessment 05/30/2022 Hepatitis C Screening 05/30/2022 Medicare Annual Wellness Visit 05/30/2022 Osteoporosis Screening (Bone Density Screening) 05/30/2022 Social Influencers of Health Screening 05/30/2022 COVID-19 Vaccine (3 - 2023-2 5 season) 2024 04/10/2021, 03/19/2021 Hypertension/CHF/CAD Annual BMP Blood Test 05/13/2024 02/14/2021 Influenza Vaccine (Season Ended) 2025 DTaP,Tdap,and Td Vaccines (2 - Td or Tdap) 04/04/2026 04/04/2016 RSV Immunization Adult Patients (1 - 1-dose 75+ series) 2028 HIB Vaccines Aged Out No longer eligi [...] age to complete this topic Meningococcal B Vaccine Aged Out No l onger eligible based on patient's age to complete [...] Insurance MEDICAID - [place] UNITED [employer]ARE MEDICARE UNITED HEALTHCARE MEDICARE Care Teams Motor Tune Up Specialist Relationship Specialty Start Date End Date Drew Marc MD [facility] [address] [place] [address] [address] [place] [address] PCP - General Internal Medicine 08/10/20
== END 2024-11-02 11:50 | disposition home or self-care (01) ==
LOC: HO.HMCH 10:42
PROVIDERS: PCP Internal Medicine
DX: S92.902D Unspecified fracture of left foot, subsequent encounter for fracture with routine healing (principal); E87.5 Hyperkalemia; R42 Dizziness and giddiness; G35 Multiple sclerosis

== ENCOUNTER → 2024-11-02 10:41 | Outpatient (BNVA) | payer MEDICARE, MEDICAID, SELFPAY | PROVIDERS: PCP Internal Medicine | DX: S92.902D Unspecified fracture of left foot, subsequent encounter for fracture with routine healing (principal); E87.5 Hyperkalemia; R42 Dizziness and giddiness; G35 Multiple sclerosis | CPT/HCPCS: 96127; 99212 ==

== ENCOUNTER 2024-11-25 13:56 | Outpatient (REF) | payer MEDICARE, MEDICAID, SELFPAY ==
[2024-11-25 16:02] LABS: Anion Gap 11 (12-20); Blood Urea Nitrogen 12 mg/dL (9-16); Calcium 8.8 mg/dL (8.4-10.2); Carbon Dioxide 26 mmol/L (22-29); Chloride 96 mmol/L (96-108); Estimated Glomerular Filt Rate 59; Glucose Random 98 mg/dL (60-115); Potassium 3.8 mmol/L (3.3-5.1); Sodium 129 mmol/L (135-145)
--- OUTSIDE RECORDS SUMMARY | 2024-11-25 16:32 | XMS_ITS | Clinical Summary ---
Author Organization [address] [place] [address] Address [address] [place] [address] Phone Care Team Providers Care Audio Visual Secretary Name Role Phone Drew Marc MD Primary Care Provider +1- [phone] Allergies Active Allergy Reactions Criticality Noted Date Comments Toone Rash Low 05/29/2022 Hydrocodone Other 09/20/2020 Hydrocodone-Acetaminophen Nausea And Vomiting 0 2019 Morphine Other 09/20/2020 Nickel Other 09/20/2020 Ondansetron Hives 2019 Prochlorperazine Other 2019 Dystonic Tramadol 02/11/2020 Medications ergocalciferol (VITAMIN D-2) 1,250 mcg (50,000 unit) capsule Take 1 capsule (50,000 Units total) by mouth 1 (one) time per week. 02/26/2022 Active LORazepam (ATIVAN) 0.5 mg tablet Take [...] by mouth 2 (two) times a day. 10/06/2019 Active QUEtiapine (SEROquel) 25 mg tablet Take 4 tablets (100 mg total) by mouth at bedtime. 01/22/2020 Active sertraline (ZOLOFT) 100 mg tablet TAKE 1 TABLET BY MOUTH 2 TIMES A DAY FOR 30 DAYS 04/10/2022 Active prazosin (MINIPRESS) 1 mg capsule Take [...] 2 (two) times a day. 261 each 10/19/2024 01/02/20 25 Active Active Problems Problem Noted Date Diagnosed Date Multiple sclerosis ([facility] V24, [facility] V28) Back pain 10/26/2019 Headache 10/26/2019 Depression 10/26/2019 Encounters Date Type Department Care Team Description 11/25/2024 Telephone [facility] [address] [address] Lyly De Jesus LCSW 10/19/2024 3:30 PM EDT Office Visit [facility] [address] [place] [address] Danelle Grant MD Multiple sclerosis ([facility] V24, [facility] V28) (Primary Dx); Depression, unspecified depression type; Spasticity; Memory change from Last 3 Months Surgical History Surgery Date Site/Laterality Comments KNEE SURGERY PROCEDURE:KNEE SURGERY SHOULDER SURGERY PROCEDURE:SHOULDER SURGERY HYSTERECTOMY PROCEDURE:HYSTERECTOMY APPENDECTOMY PROCEDURE:APPENDECTOMY MYOMECTOMY PROCEDURE:MYOMECTOMY Medical History Medical History Date Comments Fibromyalgia 12/10/2016 DX:Fibromyalgia Headache, migraine DX:Headache, migraine Lumbar radiculopathy 05/06/2012 DX:Lumbar r adiculopathy Lumbar spinal stenosis 07/06/2012 DX:Lumbar spinal stenosis Multiple sclerosis (CMS/HCC V24, CMS/HCC V28) DX:Multiple sclerosis (HCC) Osteoarthritis DX:Osteoarthriti s Family History [...] Description 12/23/2024 4:00 PM EDT Office Visit [facility] [address] [place] [address] Danelle Grant MD [address] [facility] [address] [place] [phone] Health Maintenance Due Date Last Done Comments [...] BMP Blood Test astracted us Historical Provider MD HEALTH MAINTENANCE Final Result from Last 3 Months or Most Recently Relevant to Health Maintenance Insurance * Guarantor: Sarah Dash Account Type Relation to Patient Date of Phone Billing Address Personal/Family Self 1955 [address] [place] [id number] MEDICAID - [place] UNITED [employer] MEDICARE UNITED HEALTH[employer]ARE MEDICARE Care Teams Audio Visual Secretary Relationship Specialty Start Date End Date Drew Marc MD [address] [place] [address] PCP - General Internal Medicine 08/10/20
== END 2024-11-25 13:57 | disposition home or self-care (01) ==
LOC: HO.LAB 13:56
PROVIDERS: PCP Internal Medicine
DX: E87.5 Hyperkalemia (principal)
CPT/HCPCS: 36415; 80048

== ENCOUNTER 2024-12-28 15:14 | Outpatient (REF) | payer MEDICARE, MEDICAID, SELFPAY ==
[2024-12-28 15:27] LABS: MANUAL DIFF FLAG NO
[2024-12-28 15:35] LABS: Hematocrit 32.4 % (37.0-47.0); Hemoglobin 11.4 g/dl (12.0-16.0); Imm Gran Abs Auto 0.07 X10*3/uL (0.00-0.03); Imm Gran Pct Auto 0.7 % (0.0-0.4); Lymphocytes Absolute Auto 2.6 X10*3/uL (1.2-4.9); Mean Corpuscular HGB Conc 35.2 g/dl (31.0-35.0); Mean Corpuscular Hemoglobin 28.5 pg (27.0-33.0); Mean Corpuscular Volume 81.0 fL (80.0-98.0); NRBC Abs Auto 0.000 X10*3/uL (0.0-0.012); NRBC Pct Auto 0.0 /100WBC (0.0-0.2); Platelet Count 222 X10*3/uL (160-400); Red Blood Count 4.00 X10*6/uL (4.20-5.50); White Blood Count 9.4 X10*3/uL (4.8-10.8)
[2024-12-28 15:38] LABS: Appearance Urine Clear; Glucose Urine UA Negative (Negative); PH 6.0 (5.0-9.0); Specific Gravity - Urine 1.025 (1.005-1.025); UMIC TRIGGER UACC YES
[2024-12-28 15:40] LABS: Hemoglobin A1C 103.3312 umol/L; Total Hemoglobin (HGBA1C) 3055.9301 umol/L
--- OUTSIDE RECORDS SUMMARY | 2024-12-28 15:52 | XMS_ITS | Clinical Summary ---
Author Organization [facility] Address [address] [place] [address] Care Team Providers Care Flat Examiner Name Role Phone Drew Marc MD Primary [...] 3 10/27/2023 Active ergocalciferol (VITAMIN D2) capsule 30899 units TAKE 1 CAPSULE BY MOUTH ONE [...] 70 02/16/2024 4:24 PM EDT Temperature 35.8 C (96.5 F) 02/16/2024 4:24 PM EDT Respiratory Rate 16 04/23/2023 2:56 PM EDT [...] 1 - PCV) 2018 Influenza Vaccine (#1) 2025 RSV Adult > 60+ Yrs or Pregn ant (1 - 1-dose 75+ series) 2028 Hepatitis B Vaccines Aged Out No long er eligible based on patient's age to complete this topic RSV Ped < 20 months Aged Out No longe r eligible based on patient's age to complete this topic Care Teams Flat Examiner Relationship Specialty Start Date End Date Drew Marc MD [address] [place] [address] Dr Stokes [address] [place] [id number] PCP - General Internal Medicine 08/10/20
--- OUTSIDE RECORDS SUMMARY | 2024-12-28 15:52 | XMS_ITS | Clinical Summary ---
Author Organization [facility] Address [address] [place] [address] Phone Care Team Providers Care Planning Associate Name Role Phone Drew Marc MD Primary Care Provider + Allergies Active Allergy Reactions Criticality Noted Date Comments Ely Rash Low 05/29/2022 Hydrocodone Other (see comments) [...] 09/15/2020 Active ergocalciferol (VITAMIN D2) 1.25 MG (73166 UT) capsule Take 1 capsule by mouth [...] Cancer Screening: Sigmoidoscopy 2002 Influenza Vaccine (#1) 2025 Hepatitis B Vaccine Aged Out No longe r eligible based on patient's age to complete this topic Insurance Medicaid [place] UHC Medicare * Guarantor: Sarah Dash Account Type Relation to Patient Date of Phone Billing Address Personal/Family Self 1955 [address] [place] [address] Medicaid [place] UHC Medicare Care Teams Planning Associate Relationship Specialty Start Date End Date Drew Marc MD [facility] [address] [place] [address] [address] PCP - General 09/20/20
[2024-12-28 15:58] LABS: UACC Culture Trigger YES
[2024-12-28 16:10] LABS: Alanine Aminotransferase 16 U/L (0-31); Albumin Level 4.5 g/dL (3.5-5.0); Alkaline Phosphatase 108 U/L (39-117); Anion Gap 13 (12-20); Aspartate Amino Transferase 20 U/L (5-31); Blood Urea Nitrogen 17 mg/dL (9-16); Calcium 8.7 mg/dL (8.4-10.2); Carbon Dioxide 25 mmol/L (22-29); Chloride 97 mmol/L (96-108); Cholesterol 207 mg/dL (<200); Estimated Glomerular Filt Rate 52; HDL Cholesterol 46 mg/dL (>40); Potassium 4.7 mmol/L (3.3-5.1); Sodium 130 mmol/L (135-145); Total Protein 7.1 g/dL (6.5-8.0); Triglycerides 80 mg/dL (<150)
[2024-12-28 16:33] LABS: Microalbum/Creatinine Ratio Ur 15.2 ug/mg cr (<30)
[2025-01-03 11:57] LABS: Codeine, Ur NEGATIVE; Hydrocodone, Ur NEGATIVE
[2025-01-03 11:58] LABS: Oxycodone, Ur 1972
[2025-01-03 12:00] LABS: Hydromorphone, Ur NEGATIVE; Morphine, Ur NEGATIVE
[2025-01-03 12:01] LABS: Oxymorphone, Ur 64
[2025-01-03 12:03] LABS: Norhydrocodone, Ur NEGATIVE
[2025-01-03 12:04] LABS: Noroxycodone, Ur 8962
== END 2024-12-28 15:15 | disposition home or self-care (01) ==
LOC: HO.HVNA 15:14
PROVIDERS: PCP Internal Medicine Nephrology; Visit Provider Internal Medicine
DX: F11.20 Opioid dependence, uncomplicated (principal); E87.1 Hypo-osmolality and hyponatremia; N18.2 Chronic kidney disease, stage 2 (mild)
CPT/HCPCS: 36415; 80053; 80061; 80365; 81001; 82043; 82306; 82570; 83036; 84443; 85025; 87086; G0480

== ENCOUNTER 2025-01-20 15:13 | Outpatient (AMB) | payer MEDICARE, MEDICAID, SELFPAY ==
--- OUTSIDE RECORDS SUMMARY | 2025-01-20 15:18 | XMS_ITS | Clinical Summary ---
Author Organization [address] [place] [facility] Address [address] [place] [address] Phone Care Team Providers Care Licensed Dispensing Optician Name Role Phone Drew Marc MD Primary Care Provider +1- [phone] Allergies Active Allergy Reactions Criticality Noted Date Comments [place] Rash Low 05/29/2022 Hydrocodone Other 09/20/2020 Hydrocodone-Acetaminophen Nausea And Vomiting 0 2019 Morphine Other 09/20/2020 Nickel Other 09/20/2020 Ondansetron Hives 2019 Prochlorperazine Other 2019 Dystonic Tramadol 02/11/2020 Medications LORazepam (ATIVAN) 0.5 mg tablet Take 1 [...] a day. 0 Active QUEtiapine (SEROquel) 25 mg tablet Take 4 tablets (100 mg total) by mouth at bedtime. 0 Active sertraline (ZOLOFT) 100 mg tablet TAKE 1 TABLET BY MOUTH 2 TIMES A DAY FOR 30 DAYS 2 Active prazosin (MINIPRESS) 1 mg capsule Take [...] Active baclofen (LIORESAL) 10 mg tablet Take 2 tablets (20 mg total) by mouth 2 (two) times a day. 261 each 5 Active ergocalciferol (VITAMIN D-2) 1,250 mcg (50,000 unit) capsule Take 1 capsule (50,000 Units total) by mouth 1 (one) time per week. 12 capsule 2 5 Active ergocalciferol (VITAMIN D-2) 1,250 mcg (50,000 unit) capsule Take 1 capsule (50,000 Units total) by mouth 1 (one) time per week. 2 12/30/19 25 Discontinu ed(Reorder ) baclofen (LIORESAL) 10 mg tablet Take 1 tablet (10 mg total) by mouth 1 (one) time each day for 7 days, THEN 1 tablet (10 mg total) 2 (two) times a day for 7 days, THEN 2 tablets (20 mg total) 2 (two) times a day. 261 each 5 12/24/19 25 Discontinu ed(Reorder ) Active Problems Problem Noted Date Diagnosed Date Multiple sclerosis ([facility] V24, [facility] V28) Back pain 10/26/2019 Headache 10/26/2019 Depression 10/26/2019 Encounters Date Type Department Care Team Description 12/23/2024 3:45 PM EDT Telemedicine [facility] [address] [address] Danelle Grant MD Multiple sclerosis ([facility] V24, [facility] V28) (Primary Dx); Frontotemporal dementia ([facility] V24, [facility] V28); Memory change 11/30/2024 Telephone [facility] [address] [place] [address] Lyly De Jesus LCSW Multiple Sclerosis (/) 11/26/2024 Telephone [facility] [address] [place] [address] [place] 11/25/2024 Telephone [facility] [address] [place] [address] Lyly De Jesus LCSW from Last 3 Months Surgical History Surgery [...] 77 10/19/2024 3:51 PM EDT Temperature 36.7 C (98.1 F) 07/07/2024 3:53 PM EST Respiratory Rate - - Oxygen Saturation 99% 10/19/2024 3:51 PM EDT Inhaled Oxygen Concentration - - Weight 88.5 kg (195 lb) 07/07/2024 3:53 PM EST Height 165.1 cm (5' 5 ) 07/07/2024 3:53 PM EST Body Mass Index 32.45 07/07/2024 3:53 PM EST Plan of Treatment Health Maintenance Due Date Last Done Comments Breast Cancer Screening 1955 Zoster Vaccines (1 of 2) 09/17/2003 Pneumococcal Vaccine: 50+ Years (2 of 2 - PPSV23) 09/06/2020 09/07/2019 Cholesterol Screening (Lipid Panel) 05/30/2022 Colorectal Cancer Screening: Colonoscopy 05/30/2022 Falls Risk Assessment 05/30/2022 Hepatitis C Screening 05/30/2022 Medicare Annual Wellness Visit 05/30/2022 Osteoporosis Screening (Bone Density Screening) 05/30/2022 Social Influencers of Health Screening 05/30/2022 COVID-19 Vaccine (3 - 2023-2 5 season) 2024 04/10/2021, 03/19/2021 Hypertension/CHF/CAD Annual BMP Blood Test 05/13/2024 02/14/2021 Depression Screening 06/23/2024 Influenza Vaccine (#1) 2025 DTaP,Tdap,and Td Vaccines (2 - Td [...] Relevant to Health Maintenance Insurance MEDICAID - [place] UNITED HEALTHCARE MEDICARE Care Teams Licensed Dispensing Optician Relationship Specialty Start Date End Date Drew Marc MD [facility] [address] [place] [address] [address] [place] [address] PCP - General Internal Medicine 08/10/20
--- OUTSIDE RECORDS SUMMARY | 2025-01-20 15:18 | XMS_ITS | Clinical Summary ---
Author Organization [facility] Address [address] [place] [address] Care Team Providers Care Supervisor Nut Processing Name Role Phone Drew Marc MD Primary [...] 3 10/27/2023 Active ergocalciferol (VITAMIN D2) capsule 41272 units TAKE 1 CAPSULE BY MOUTH ONE [...] age to complete this topic Care Teams Supervisor Nut Processing Relationship Specialty Start Date End Date Drew Marc MD [address] [place] [address] Dr Stokes [address] [place] [phone] PCP - General Internal Medicine 08/10/20
--- OUTSIDE RECORDS SUMMARY | 2025-01-20 15:18 | XMS_ITS | Clinical Summary ---
Author Organization [facility] Address [address] [place] [address] Phone Care Team Providers Care Supervisor Poultry Hatchery Name Role Phone Drew Marc MD Primary Care Provider + Allergies Active Allergy Reactions Criticality Noted Date Comments Imbler Rash Low 05/29/2022 Hydrocodone Other (see comments) [...] 09/15/2020 Active ergocalciferol (VITAMIN D2) 1.25 MG (48462 UT) capsule Take 1 capsule by mouth [...] Personal/Family Self 1955 [address] [place] [address] Medicaid [place] UHC Medicare Care Teams Supervisor Poultry Hatchery Relationship Specialty Start Date End Date Drew Marc MD [facility] [address] [place] [address] [address] PCP - General 09/20/20
--- OUTSIDE RECORDS SUMMARY | 2025-01-20 15:18 | XMS_ITS ---
Author Name [facility] Organization Unknown History of Medication Use Medication Directions Dispensed Refills Start Date End Date Stat prazosin (MINIPRESS) 1 mg capsule Take 1 capsule (1 mg total) by mouth. at bedtime 06/25/2024 active baclofen (LIORESAL) 10 mg tablet TAKE 1 TABLET BY MOUTH IN MORNING AND TWO TABLETS AT NIGHT 05/28/2024 active dilTIAZem CD (CARDIZEM CD) 120 mg 24 hr capsule Take 1 capsule (120 mg total) by mouth 1 (one) time each day. 11/21/2022 active OXcarbazepine (TRILEPTAL) 150 mg tablet Take 1 tablet (150 mg total) by mouth 2 (two) times a day. 06/04/2022 active sertraline (ZOLOFT) 100 mg tablet TAKE 1 TABLET BY MOUTH 2 TIMES A DAY FOR 30 DAYS 04/10/2022 active ergocalciferol (VITAMIN D-2) 1,250 mcg (50,000 unit) capsule Take 1 capsule (50,000 Units total) by mouth 1 (one) time per week. 02/26/2022 active dilTIAZem (TIAZAC) 120 mg 24 hr capsule 06/10/2021 active omeprazole (PriLOSEC) [address] capsule Take 1 capsule (20 mg total) by mouth 2 (two) times a day. 02/01/2021 active QUEtiapine (SEROquel) 25 mg tablet Take 4 tablets (100 mg total) by mouth at bedtime. 01/22/2020 active oxyCODONE (ROXICODONE) 5 mg immediate release tablet Take 1 tablet (5 mg total) by mouth 2 (two) times a day. Max Daily Amount: 10 mg 10/06/2019 active folic acid (FOLVITE) 1 mg tablet Take by mouth 1 (one) time each day. active ibuprofen (ADVIL,MOTRIN) 200 mg tablet Take 1 tablet (200 mg total) by mouth every 6 hours as needed. active LORazepam (ATIVAN) 0.5 mg tablet Take 1 tablet (0.5 mg total) by mouth 2 (two) times a day. Max Daily Amount: 1 mg active metoprolol tartrate (LOPRESSOR) 25 mg tablet Take 1 tablet (25 mg total) by mouth 2 (two) times a day. active multivitamin tablet Take 1 tablet by mouth 1 (one) time each day. active predniSONE 10 mg tablets,dose pack Take 4 tablets (40 mg total) by mouth. active solifenacin (VESICARE) 10 mg tablet Take 1 tablet (10 mg total) by mouth 1 (one) time each day. active thiamine 100 mg tablet Take 10 mg by mouth 1 (one) time each day. active zolpidem (AMBIEN) 5 mg tablet TAKE 1 TABLET ORALLY BEDTIME NEEDED FOR INSOMNIA active Allergies Allergen Reaction Severity Comment Documented Date Source Statu s COBALT RASH 05/29/2022 [facility] active NICKEL OTHER 09/20/2020 [facility] active TRAMADOL 02/11/2020 [facility] active PROCHLORPERAZINE OTHER Dystonic 2019 [facility] active HYDROCODONE OTHER [facility] HYDROCODONE-ACETAMINO PHEN NAUSEA AND VOMITING [facility] MORPHINE OTHER [facility] ONDANSETRON HIVES [facility] Problems Problem Status Onset Date Problem Type Date of Resoluti on Source Depression active 2019-10-26 ProblemAct [facility] Multiple sclerosis ([facility] V24, [facility] V28) active 2020-07-18 ProblemAct [facility] Headache active 2019-10-26 ProblemAct [facility] Back pain active 2019-10-26 ProblemAct [facility]
--- NOTE | 2025-01-20 15:37 | MHC.PC.OV ---
Vital Signs 01/20/25 15:39 Height 5 ft 5 in Weight 200 lb BMI 33.3 BP 124/64 Blood Pressure Location Lt brachial Position Sitting Pulse 64 Pulse Source Pulse Oximeter Temp 97.1 F Temp Source Temporal Artery Scan Pulse Oximetry (%) 98 Oxygen Delivery Method Room Air Intake Visit Reasons: 3 Month F/U - see comments Irrigation Tax Assessor Collector Required: No State Manager: Not Required per policy Accompanied by: Self / Same As Patient Allergies prochlorperazine (Compazine) Allergy (Severe, Verified 01/20/25 15:38) Dystonic Reaction cobalt (COBALT) Allergy (Intermediate, Verified 01/20/25 15:38) RASH hydrocodone (Vicodin) Allergy (Intermediate, Verified 01/20/25 15:38) Nausea and Vomiting nickel (NICKEL) Allergy (Intermediate, Verified 01/20/25 15:38) RASH ondansetron (Zofran) Allergy (Intermediate, Verified 01/20/25 15:38) Hives morphine Adverse Reaction (Intermediate, Verified 01/20/25 15:38) Nausea and Vomiting lactose Adverse Reaction (Verified 01/20/25 15:38) Gastrointestinal Upset Tobacco use date assessed: 01/20/25 Fall risk assessment: No Falls in past year Last assessed Fall Risk: 01/20/25 Dental Screening Dental Screen Date: 11/02/24 [facility] Medical History Hypertension Urinary incontinence Anxiety Anxiety COVID-19 Osteoarthritis of right knee Essential hypertension SVT (supraventricular tachycardia) Depression History of kidney problems Paroxysmal SVT (supraventricular tachycardia) History of confusion Urgency of micturition Memory difficulties Arthritis History of dysphagia Multiple sclerosis GERD (gastroesophageal reflux disease) Anxiety Pain syndrome, chronic Disc degeneration, lumbar 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, bilateral Surgical History Hx of hysterectomy History of surgery on left wrist Deficient knowledge of leg surgery History of rotator cuff surgery History of left knee surgery History of myomectomy History of appendectomy Family History Mother Diabetes Kidney failure Father AAA (abdominal aortic aneurysm, ruptured) Family/Other Mental health disorder Substance use disorder Social History Household Members: Family Housing: House Are you a primary women's health care nurse practitioner to a significant other at home: No Do you presently have visiting nurse or other home services: No ([employer]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 Patient Tobacco Use Status: Never used Tobacco e-Cigarette/Vaping Use: Never Used Second Hand Smoke Exposure: No Advance Directives Date on File: 06/25/24 service: No Current occupational status: retired and disabled Cognitive needs: Yes (walker) Hearing needs: No Vision needs: Yes (glasses) Questionnaire Thrive Questionnaire Date Thrive assessed: 11/02/24 I am a: Patient What is your living situation today?: I have a steady place to live Within the past 12 months, did the food you bought not last and you didn't have the money to get more?: I choose not to answer this question Within the past 12 months, did you worry whether your food would run out before you got money to buy more?: I choose not to answer this question Do you have trouble paying for medicines?: I choose not to answer this question Do you have trouble getting transportation to medical appointments?: I choose not to answer this question Do you have trouble paying your heating and electricity bill?: I choose not to answer this question Do you have trouble taking care of your child, family member or friend?: I choose not to answer this question Do you have trouble with day-to-day activities such as bathing, preparing meals, shopping, managing finances, etc.?: I choose not to answer this question Are you currently unemployed and looking for a job?: I choose not to answer this question Are you interested in more education?: I choose not to answer this question Please select the resources that you would like help with: None Currently or been in a relationship where the following occur: I choose not to answer THRIVE Score: 0 ARNAUD-7 AMB Questionnaire ARNAUD-7 Date ARNAUD - 7 assessed: 11/02/24 Source: Developed by Drs. Dewey Angel, Cherie Mei, Dilan Giordano and colleagues, with an educational domingo from [employer]. Physical exam (Primary Care) Vital Signs: Last Vital Signs Temp 97.1 F 01/20/25 15:39 Pulse 64 01/20/25 15:39 BP 124/64 01/20/25 15:39 Pulse Ox 98 01/20/25 15:39 Oxygen Delivery Method Room Air 01/20/25 15:39 BMI result Body Mass Index 33.3 Tobacco/Smoking Status: Tobacco use Status Tobacco use date assessed 01/20/25 01/20/25 15:39 Patient Tobacco Use Status Never used Tobacco 01/20/25 15:39 e-Cigarette/Vaping Use Never Used 01/20/25 15:39 Thrive Assessment: Date of Thrive Assessment Date Thrive assessed 11/02/24 01/20/25 15:39 Currently or been in a relationship where the following occur: I choose not to answer Coding Level of Care Code Est Pt Level 4 (96368) Complex EM visit Add On G2211 Diagnoses Frontotemporal dementia G31.09; F02.80 Assessment & Plan Assessment & Plan (1) Frontotemporal dementia: Code(s): G31.09 - Other frontotemporal neurocognitive disorder; F02.80 - Dementia in other diseases classified elsewhere, unspecified severity, without behavioral disturbance, psychotic disturbance, mood disturbance, and anxiety Category: Medical Plan: Patient came alone, she had a friend who accompanied her to the office. Her grand nephews are no longer taking care of her. She is very reluctant to move to a alf. She is unable to take care of her home, missed bills/payments etc. Continues to ramble about her various symptoms, feet pain, memory loss, body pain, lower leg spasms. She does see the neurologist at [facility]. No longer on the medication for MS. Plan History of Present Illness - The patient is a 69-year-old female presenting with multiple sclerosis management. - She has a history of multiple sclerosis, which has led to cognitive issues and memory problems. - Ocrevus was previously effective in managing her symptoms but has been discontinued. - The patient has experienced encephalopathy during a past hospitalization. - She has a history of rhabdomyolysis and presyncope, impacting her current health. - Presyncope episodes occur, especially when seated in her wheelchair. - Diagnosed with supraventricular tachycardia (SVT), she reports palpitations linked to anxiety. - Anxiety is a contributing factor to her palpitations and overall health concerns. Social History - The patient lives in her own home, which holds significant personal memories. - She receives meals at noontime and evening meals from her grandnephew, who lives upstairs. 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 Review of Systems - Neurological: Reports memory problems and cognitive issues. Denies headaches or dizziness. - Cardiovascular: Reports palpitations and presyncope. Denies chest pain or syncope. - Psychological: Reports anxiety. Denies depression. Physical Exam General: Cooperative and healthy appearing Nutritional Appearance: Well nourished Orientation/consciousness: Patient oriented x3 Limitations: No limitations Head: Normal to inspection General: Appearance normal, both eyes and all related structures Neck: Normal visual inspection Chest: Normal palpation of entire chest wall Respiratory: N ormal respiratory effort Neurology: Patient oriented x3, reports memory problems, diagnosed with MS, experiencing presyncope and palpitations, anxiety noted. Results Plan 1. Multiple Sclerosis - Continue follow-up with the neurologist for management of multiple sclerosis. - Consider neuropsychological testing as recommended by the [facility] to assess cognitive function. 2. Encephalopathy - Monitor for any recurrent symptoms or complications related to encephalopathy. 3. Rhabdomyolysis - Ensure adequate hydration and monitor renal function to prevent complications. 4. Presyncope - Evaluate for potential triggers and manage underlying conditions contributing to presyncope. 5. Supraventricular Tachycardia (Svt) - Monitor heart rate and rhythm, and manage anxiety to reduce palpitations. 6. Anxiety - Address anxiety through counseling or medication as needed to improve quality of life. Discussion Notes During the visit, we discussed the management of multiple sclerosis and the importance of continuing follow-up with the neurologist. We also talked about the need for neuropsychological testing to assess cognitive function. The patient was advised to monitor for any recurrent symptoms of encephalopathy and to ensure adequate hydration to prevent complications from rhabdomyolysis. We addressed the importance of managing anxiety to reduce palpitations and improve overall quality of life. The patient was encouraged to continue her current medications and to follow up with her healthcare providers as scheduled. Patient Instructions - Continue taking your prescribed medications as directed. - Follow up with your neurologist as scheduled. - Monitor for any new or worsening symptoms and report them to your healthcare provider. - Stay hydrated to prevent complications from rhabdomyolysis. - Consider neuropsychological testing as recommended.
[2025-01-20 15:39] VITALS: BP 124/64; PULSE 64; TEMP 36.2; O2SAT 98; BMI 33.3
== END 2025-01-20 16:17 | disposition home or self-care (01) ==
LOC: HO.HMCH 15:14
PROVIDERS: PCP Internal Medicine; Visit Provider Internal Medicine
DX: G31.09 Other frontotemporal neurocognitive disorder (principal); F02.80 Dementia in other diseases classified elsewhere, unspecified severity, without behavioral disturbance, psychotic disturbance, mood disturbance, and anxiety

== ENCOUNTER → 2025-01-20 15:13 | Outpatient (BNVA) | payer MEDICARE, MEDICAID, SELFPAY | PROVIDERS: PCP Internal Medicine; Visit Provider Internal Medicine | DX: G31.09 Other frontotemporal neurocognitive disorder (principal); F02.80 Dementia in other diseases classified elsewhere, unspecified severity, without behavioral disturbance, psychotic disturbance, mood disturbance, and anxiety | CPT/HCPCS: 99212 ==

== ENCOUNTER 2025-06-01 11:27 | Outpatient (AMB) | payer MEDICARE, MEDICAID, SELFPAY ==
--- NOTE | 2025-06-01 11:31 | A.OFFPC_ITS ---
Vital Signs 06/01/25 11:34 Height 5 ft 5 in Weight 208 lb 8.917 oz BMI 34.7 BP 140/90 H Blood Pressure Location Lt brachial Position Sitting Pulse 78 Pulse Source Pulse Oximeter Temp 97.1 F Temp Source Temporal Artery Scan Pulse Oximetry (%) 94 Oxygen Delivery Method Room Air Intake Visit Reasons: Annual Physical - see comments Intake Note: Patient is here today for a physical. Director Hydrogen Storage Engineering Required: No Cook Chill Technician: Not Required per policy Accompanied by: Self / Same As Patient Allergies prochlorperazine (Compazine) Allergy (Severe, Verified 06/02/25 05:59) Dystonic Reaction cobalt (COBALT) Allergy (Intermediate, Verified 06/02/25 05:59) RASH hydrocodone (Vicodin) Allergy (Intermediate, Verified 06/02/25 05:59) Nausea and Vomiting nickel (NICKEL) Allergy (Intermediate, Verified 06/02/25 05:59) RASH ondansetron (Zofran) Allergy (Intermediate, Verified 06/02/25 05:59) Hives morphine Adverse Reaction (Intermediate, Verified 06/02/25 05:59) Nausea and Vomiting lactose Adverse Reaction (Verified 06/02/25 05:59) Gastrointestinal Upset Medication List - Last Reconciled 06/02/25 by Drew Marc MD baclofen 20 mg PO BID ergocalciferol (vitamin D2) 1,250 mcg PO BROWN@0900 lorazepam 0.5 mg PO BID PRN meclizine 25 mg PO Q6H PRN metoprolol tartrate 37.5 mg (1.5 x 25 mg) PO BID nystatin 5 mL PO QID omeprazole 20 mg PO BID@0630,1630 oxcarbazepine 300 mg PO BID oxcarbazepine 150 mg PO BID oxycodone 5 mg PO BID quetiapine 100 mg PO BEDTIME sertraline 200 mg PO DAILY solifenacin (Vesicare) 10 mg PO DAILY zolpidem 10 mg PO BEDTIME PRN Tobacco use date assessed: 06/01/25 Fall risk assessment: No Falls in past year Last assessed Fall Risk: 06/01/25 Dental Screening Dental Screen Date: 11/02/24 HPI HPI Comments History of Present Illness Details History of Present Illness - The patient is a 69-year-old female pr esenting for management of multiple chronic conditions and an annual physical. - She reports a history of multiple scle rosis diagnosed in 2007, with cognitive impairment being her initial and persistent problem. - She states her memory and cognition ar e poor, affecting her ability to remember conversations and people's faces. - During a hospitalization last May , she was diagnosed with frontotemporal dementia or encephalopathy. - Initially, she was deemed incapable of making her own decisions due to delusions or hallucinations, but after a few days, neuropsychological evaluations determined she was capable. - She reports ongoing legal issues regar ding her competency and efforts to place her in a half-way, which she is trying to avoid. 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 - The patient reports a continuous heada stacy located in the back of her head, which she believes started after undergoing intense vestibular exercises for postural vertigo during a prior hospitalization. - She also experiences ongoing spinning dizziness to the right and imbalance. - She has a history of cervical spine pr oblems and was previously scheduled for an anterior resection of her cervical spine. - She takes meclizine as needed for dizz iness. - An MRI is due, which is typically orde red by the [facility]. - She reports chronic, generalized pain as well as severe pain in her feet and legs, which she attributes to her multiple sclerosis and osteoarthritis affecting her entire spine. - She notes improvement in muscle spasms since starting baclofen. - She is experiencing an increase in kennedy ic attacks and occasional palpitations, which she has discussed with her therapist and clinical nurse specialist. - She has a significant dental infection that causes pain radiating up to her eyes and requires an oral surgeon, but she has not yet found one. - For overactive bladder, she uses Vesic are but ran out last month. - Due to incontinence, she wears pads an d briefs, which has led to skin breakdown despite using various creams. - She reports a history of a broken foot since August. Social History - Housing and Finances: The patient is f acing legal challenges that may result in losing her house due to thousands of dollars in unpaid taxes. - She reports having no money and has keller d her phone, gas, and electricity turned off but has managed to medina these issues. - She is trying to stay in her home and avoid moving to an assisted living or half-way, which some family members have suggested. - Social Support: Her great-nephew lives upstairs and has been a primary support person. - She also has a therapist and a [facility] nurse specialist with whom she speaks weekly. - Functional Status: The patient is unab le to walk and primarily uses a wheelchair. - She is independent with personal care activities such as washing herself but can no longer stand to cook, relying on a microwave. - Transportation: She lost her car and r elies on friends for transportation, which is not always reliable. - Her nephew, who lives with her, used t o use her car, but it broke down. - Stressors: She reports significant str ess from ongoing court proceedings and financial instability. - Nutrition: She reports not eating much despite gaining weight. Results - Neuropsychological Exam: Patient repor ts a recent court-ordered neuropsychological exam was completed two weeks ago; results are pending. [facility] Medical History Hypertension Urinary incontinence Anxiety Anxiety COVID-19 Osteoarthritis of right knee Essential hypertension SVT (supraventricular tachycardia) Depression History of kidney problems Paroxysmal SVT (supraventricular tachycardia) History of confusion Urgency of micturition Memory difficulties Arthritis History of dysphagia Multiple sclerosis GERD (gastroesophageal reflux disease) Anxiety Pain syndrome, chronic Disc degeneration, lumbar 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, bilateral Surgical History Hx of hysterectomy History of surgery on left wrist Deficient knowledge of leg surgery History of rotator cuff surgery History of left knee surgery History of myomectomy History of appendectomy Family History Mother Diabetes Kidney failure Father AAA (abdominal aortic aneurysm, ruptured) Family/Other Mental health disorder Substance use disorder Social History Household Members: Family Housing: House Are you a primary intensive care ambulance paramedic to a significant other at home: No Do you presently have visiting nurse or other home services: No ([employer]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 Patient Tobacco Use Status: Never used Tobacco e-Cigarette/Vaping Use: Never Used Second Hand Smoke Exposure: No Advance Directives Date on File: 06/25/24 service: No Current occupational status: retired and disabled Cognitive needs: Yes (walker, Wheelchair) Hearing needs: No Vision needs: Yes (glasses) Questionnaire Thrive Questionnaire Date Thrive assessed: 11/02/24 I am a: Patient What is your living situation today?: I have a steady place to live Within the past 12 months, did the food you bought not last and you didn't have the money to get more?: I choose not to answer this question Within the past 12 months, did you worry whether your food would run out before you got money to buy more?: I choose not to answer this question Do you have trouble paying for medicines?: I choose not to answer this question Do you have trouble getting transportation to medical appointments?: I choose not to answer this question Do you have trouble paying your heating and electricity bill?: I choose not to answer this question Do you have trouble taking care of your child, family member or friend?: I choose not to answer this question Do you have trouble with day-to-day activities such as bathing, preparing meals, shopping, managing finances, etc.?: I choose not to answer this question Are you currently unemployed and looking for a job?: I choose not to answer this question Are you interested in more education?: I choose not to answer this question Please select the resources that you would like help with: None Currently or been in a relationship where the following occur: I choose not to answer THRIVE Score: 0 ARNAUD-7 AMB Questionnaire ARNAUD-7 Date ARNAUD - 7 assessed: 11/02/24 Source: Developed by Drs. Dewey Angel, Cherie Mei, Dilan Giordano and colleagues, with an educational domingo from [employer]. Review of Systems Narrative Review of Systems - Constitutional: Reports weight gain. - Neurological: Reports continuous headache in the back of the head, spinning dizziness to the right, imbalance, memory loss, cognitive impairment, and generalized pain. - Psychiatric: Reports experiencing panic attacks. - Cardiovascular: Reports occasional palpitations. - Musculoskeletal: Reports generalized pain, chronic pain in feet and legs, and muscle spasms which have improved with baclofen. - HEENT: Reports dental pain with radiation to her eyes. - Genitourinary: Reports urinary incontinence requiring pads and briefs. - Integumentary: Reports skin breakdown from incontinence products. Physical exam (Primary Care) Vital Signs: Last Vital Signs Temp 97.1 F 06/01/25 11:34 Pulse 78 06/01/25 11:34 BP 140/90 H 06/01/25 11:34 Pulse Ox 94 06/01/25 11:34 Oxygen Delivery Method Room Air 06/01/25 11:34 BMI result Body Mass Index 34.7 Tobacco/Smoking Status: Tobacco use Status Tobacco use date assessed 06/01/25 06/01/25 11:44 Patient Tobacco Use Status Never used Tobacco 06/01/25 11:44 e-Cigarette/Vaping Use Never Used 06/01/25 11:44 Thrive Assessment: Date of Thrive Assessment Date Thrive assessed 11/02/24 06/01/25 11:44 Currently or been in a relationship where the following occur: I choose not to answer Narrative Physical Exam General: Appearance normal, both eyes and all related structures Nutritional Appearance: Well nourished Orientation/consciousness: Patient oriented x3 Limitations: No limitations Head: Pain in the back of the head, continuous headaches Neck: Pain in the neck, continuous headaches Chest: Normal palpation of entire chest wall Respiratory: Normal respiratory effort Neurology: Patient oriented x3, experiencing dizziness and balance issues Coding Level of Care Code Est Pt Level 4 (00010) New Pt Prev Care >65yr (58902) Diagnoses Annual physical exam Z00.00 Assessment & Plan Assessment & Plan (1) Annual physical exam: Code(s): Z00.00 - Encounter for general adult medical examination without abnormal findings Plan Plan - Overactive Bladder: A one-month prescription for Vesicare will be sent to the pharmacy. - Dental Infection: The patient will find an oral surgeon for her dental infection. - Incontinence-Associated Dermatitis: The patient will try a new [id number] cream as discussed with her nurse and will monitor for improvement. - Headache and Dizziness: The patient will follow up with her new neurologist. - If she needs a referral to a neurologist from this office, she will let the provider know. - Multiple Sclerosis: The patient will follow up at the [facility] for ongoing management and to arrange for a repeat MRI. - Continuity of Care: The patient was informed that she can choose another doctor within the practice if she wishes, and she will take time to decide before making a change. Discussion Notes I discussed the patient's multiple, complex medical and psychosocial issues. Regarding her continuous headache and dizziness, I advised that her current medications, including meclizine for dizziness, are appropriate, but if she requires different treatment, she would need to see a neurologist. She has an appointment with a new neurologist, and I recommended she follow up with them. I addressed her need for a Vesicare refill and sent a one-month supply to the pharmacy to bridge the gap until her urology appointment in June. For her skin breakdown, we discussed trying a new herl-xdw-awquuck cream. I acknowledged her significant psychosocial stressors, including legal and financial difficulties, and her efforts to manage them. We also discussed continuity of care, and I informed her that she could be referred to another provider in the group if she wishes to make a change, allowing her time to decide. Patient Instructions - I have sent a one-month supply of your bladder medication, Vesicare, to your pharmacy. - For the skin irritation you are experiencing, try the new [id number]-raqlill cream that was recommended to you and see if that helps. - It is important that you find an oral surgeon to address the infection in your tooth as soon as possible. - Please follow up with your new neurologist appointment to discuss your headaches and dizziness. - Continue to follow up with your specialists at the [facility] for your MS care. - Please let me know if you decide you would like to see a different doctor in our practice, and I can help arrange that for you. Medications: New solifenacin (Vesicare) 10 mg PO DAILY 30 tabs 0RF
[2025-06-01 11:34] VITALS: BP 140/90; PULSE 78; TEMP 36.2; O2SAT 94; BMI 34.7
== END 2025-06-01 12:22 | disposition home or self-care (01) ==
LOC: HO.HMCH 11:28
PROVIDERS: PCP Internal Medicine; Visit Provider Internal Medicine
DX: Z00.00 Encounter for general adult medical examination without abnormal findings (principal); N32.81 Overactive bladder; R51.9 Headache, unspecified; G35.D Multiple sclerosis, unspecified

== ENCOUNTER → 2025-06-01 11:27 | Outpatient (BNVA) | payer MEDICARE, MEDICAID, SELFPAY | PROVIDERS: PCP Internal Medicine; Visit Provider Internal Medicine | DX: Z00.00 Encounter for general adult medical examination without abnormal findings (principal); N32.81 Overactive bladder; L24.A2 Irritant contact dermatitis due to fecal, urinary or dual incontinence; R42 Dizziness and giddiness; R51.9 Headache, unspecified; G35.D Multiple sclerosis, unspecified | CPT/HCPCS: 99212; 99397 ==